=== PATIENT | male | born 1970 | race Caucasian/White ===

== ENCOUNTER 2016-11-16 13:07 | Inpatient (IN) | payer OTHER ==
[2016-11-16] MEDS ORDERED: RX INFO: IV CONTRAST WAS GIVEN 1 EACH MISC MISCELLANE PRN (13:31)
[2016-11-16] MEDS ORDERED: SODIUM CHLORIDE 0.9% 1,000 ML IV STA (13:31)
[2016-11-16] MEDS ORDERED: HYDROmorphone 1 MG/ML 1 ML SYRINGE IVP STA (13:31)
--- NOTE | 2016-11-16 13:50 | ED ---
Skin/Abscess/FB HPI - General Source: patient, RN notes reviewed Mode of arrival: ambulatory Limitations: no limitations <Allison Amaral - Last Filed: 11/16/16 15:34> <Smith Belcher - Last Filed: 11/16/16 15:45> - General Chief complaint: Skin/Abscess/Foreign Body Stated complaint: Painful Cyst Time Seen by Provider: 11/16/16 13:22 - History of Present Illness Initial comments: 46-year-old male presents to the emergency Department chief complaint of pain to the patient's rear end. Patient states for the last month he's had annoying pain to the left rear but now he is noticing increased pain for last 2 days. Patient states it's to the left of his rectum. Patient denies any drainage from the area any fever or chills. Patient states it started had she cannot walk or stand on it. Patient states she's never had anything like this before. Patient states he was concerned due to his symptoms so he thought that he should be evaluated. Patient denies any recent fever, chills, shortness of breath, chest pain, back pain, abdominal pain, nausea vomiting, numbness or tingling, dysuria or hematuria, constipation or diarrhea, headaches or visual changes, or any other current symptoms. (Allison Amaral) - Related Data Home Medications Medication Instructions Recorded Confirmed Ergocalciferol [Vitamin D2 50,000 unit PO SUTH 07/23/14 11/16/16 (DRISDOL)] Lisinopril [Zestril] 10 mg PO DAILY 07/23/14 11/16/16 Insulin Aspart [NovoLOG Flexpen] See Protocol SQ AC-TID 11/16/16 11/16/16 Insulin Degludec [Tresiba 52 unit SQ HS 11/16/16 11/16/16 Flextouch U-200] Allergies Allergy/AdvReac Type Severity Reaction Status Date / Time No Known Allergies Allergy Verified 11/16/16 13:38 Review of Systems ROS Other: All systems not noted in ROS Statement are negative. <Allison Amaral - Last Filed: 11/16/16 15:34> ROS Other: All systems not noted in ROS Statement are negative. <Smith Belcher - Last Filed: 11/16/16 15:45> ROS Statement: Those systems with pertinent positive or pertinent negative responses have been documented in the HPI. Past Medical History Past Medical History: Diabetes Mellitus, Renal Disease Additional Past Medical History / Comment(s): 07/23/14 Pt presented to [facility] ER with c/o dizziness which waxes and wanes over the past month. Dizziness is worse when standing up and with activity. It gets better when lying down. Pt states he recently started on neurontin for diabetic neuropathy and flomax for urinary retention. He saw a urologist and had a lane placed last week. He had the lane for a total of 10 days then it was removed. Other HX: IDDM, renal insufficency diabetic neuropathy, diabetic ketoacidosis, hypercalcemia History of Any Multi-Drug Resistant Organisms: None Reported Past Surgical History: No Surgical Hx Reported Additional Past Surgical History / Comment(s): renal stent 06/30 Past Anesthesia/Blood Transfusion Reactions: No Reported Reaction Past Psychological History: No Psychological Hx Reported Smoking Status: Current every day smoker Past Alcohol Use History: None Reported Past Drug Use History: None Reported - Past Family History Mother Family Medical History: Diabetes Mellitus Father Family Medical History: No Reported History <Allison Amaral - Last Filed: 11/16/16 15:34> General Exam Limitations: no limitations <Allison Amaral - Last Filed: 11/16/16 15:34> <Smith Belcher - Last Filed: 11/16/16 15:45> - General Exam Comments Initial Comments: General: The patient is awake and alert, in no distress, and does not appear acutely ill. Eye: Pupils are equal, round and reactive to light, extra-ocular movements are intact; there is normal conjunctiva bilaterally. No signs of icterus. Ears, nose, mouth and throat: There are moist mucous membranes. Neck: The neck is supple, there is no tenderness. Cardiovascular: There is a regular rate and rhythm. No murmur, rub or gallop is appreciated. Respiratory: Lungs are clear to auscultation, respirations are non-labored, breath sounds are equal. No wheezes, stridor, rales, or rhonchi. Gastrointestinal: Soft, non-distended, non-tender abdomen without masses or organomegaly noted. There is no rebound or guarding present. No CVA tenderness. Bowel sounds are unremarkable. Rectal: Patient appears to have an abscess at the 5 o'clock position. There does not appear to be any drainage. Back: There is no tenderness to palpation in the midline. There is no obvious deformity. No rashes noted. Musculoskeletal: Normal ROM, no tenderness, There is no pedal edema. There is no calf tenderness or swelling. Sensation intact. Pulses equal bilaterally 2+. Neurological: CN II-XII intact, There are no obvious motor or sensory deficits. Coordination appears grossly intact. Speech is normal. Skin: Skin is warm and dry and no rashes or lesions are noted. Psychiatric: Cooperative, appropriate mood & affect, normal judgment. (Allison Amaral) Course <Allison Amaral - Last Filed: 11/16/16 15:34> <Smith Belcher - Last Filed: 11/16/16 15:45> Vital Signs 11/16/16 11/16/16 11/16/16 13:12 14:37 15:06 Temperature 98.3 F 99.6 F Pulse Rate 118 H 99 99 Respiratory 18 15 18 Rate Blood Pressure 116/76 159/73 146/76 O2 Sat by Pulse 98 95 96 Oximetry - Reevaluation(s) Reevaluation #1: 11/16/16 15:03 This time patient does meet sepsis criteria. (Allison Amaral) Reevaluation #2: 11/16/16 15:45 I did personally do a [id number] evaluation the patient and did discuss the findings with him and his family members. I also discussed the case with Dr. Glass. Patient will be admitted nothing by mouth after midnight for likely incision and drainage in the a.m. Patient will be started on antibiotics. Patient does demonstrate a tender fluctuant area at about 5 o'clock position. She has had a sore 3.5 x 2 cm area. (Smith Belcher) Medical Decision Making - Lab Data Result diagrams: 11/16/16 14:10 11/16/16 14:10 - Radiology Data Radiology results: report reviewed, image reviewed <Allison Amaral - Last Filed: 11/16/16 15:34> - Lab Data Result diagrams: 11/16/16 14:10 11/16/16 14:10 <Smith Belcher - Last Filed: 11/16/16 15:45> - Medical Decision Making 46-year-old male presents emergency Department chief complaint of what appears to be a perianal abscess. This tenderness does not appear to be of fistula or drainage. At this time we will admit the patient IV antibiotics were started. We will call Dr. Pavon: See how she progresses. Patient is negative plan all questions have been answered. (Allison Amaral) - Lab Data Lab Results 11/16/16 11/16/16 11/16/16 Range/Units 14:10 14:10 14:10 WBC 15.6 H (3.8-10.6) k/uL RBC 5.24 (4.30-5.90) m/uL Hgb 15.5 (13.0-17.5) gm/dL Hct 41.6 (39.0-53.0) % MCV 79.4 L (80.0-100.0) fL MCH 29.6 (25.0-35.0) pg MCHC 37.2 H (31.0-37.0) g/dL RDW 12.7 (11.5-15.5) % Plt Count 251 (150-450) k/uL Neutrophils % 82 % Lymphocytes % 8 % Monocytes % 7 % Eosinophils % 2 % Basophils % 1 % Neutrophils # 12.7 H (1.3-7.7) k/uL Lymphocytes # 1.2 (1.0-4.8) k/uL Monocytes # 1.1 H (0-1.0) k/uL Eosinophils # 0.3 (0-0.7) k/uL Basophils # 0.1 (0-0.2) k/uL PT (9.0-12.0) sec INR (<1.1) APTT (22.0-30.0) sec Sodium 136 L (137-145) mmol/L Potassium 4.3 (3.5-5.1) mmol/L Chloride 102 (98-107) mmol/L Carbon Dioxide 26 (22-30) mmol/L Anion Gap 8 mmol/L BUN 19 (9-20) mg/dL Creatinine 1.05 (0.66-1.25) mg/dL Est GFR (MDRD) Af Amer >60 (>60 ml/min/1.73 sqM) Est GFR (MDRD) Non-Af >60 (>60 ml/min/1.73 sqM) Glucose 171 H (74-99) mg/dL Plasma Lactic Acid Jcarlos 1.0 (0.7-2.0) mmol/L Calcium 10.3 H (8.4-10.2) mg/dL Total Bilirubin 0.9 (0.2-1.3) mg/dL AST 11 L (17-59) U/L ALT 19 L (21-72) U/L Alkaline Phosphatase 136 H (38-126) U/L Total Protein 6.2 L (6.3-8.2) g/dL Albumin 3.3 L (3.5-5.0) g/dL 11/16/16 Range/Units 14:10 WBC (3.8-10.6) k/uL RBC (4.30-5.90) m/uL Hgb (13.0-17.5) gm/dL Hct (39.0-53.0) % MCV (80.0-100.0) fL MCH (25.0-35.0) pg MCHC (31.0-37.0) g/dL RDW (11.5-15.5) % Plt Count (150-450) k/uL Neutrophils % % Lymphocytes % % Monocytes % % Eosinophils % % Basophils % % Neutrophils # (1.3-7.7) k/uL Lymphocytes # (1.0-4.8) k/uL Monocytes # (0-1.0) k/uL Eosinophils # (0-0.7) k/uL Basophils # (0-0.2) k/uL PT 9.8 (9.0-12.0) sec INR 1.0 (<1.1) APTT 22.4 (22.0-30.0) sec Sodium (137-145) mmol/L Potassium (3.5-5.1) mmol/L Chloride (98-107) mmol/L Carbon Dioxide (22-30) mmol/L Anion Gap mmol/L BUN (9-20) mg/dL Creatinine (0.66-1.25) mg/dL Est GFR (MDRD) Af Amer (>60 ml/min/1.73 sqM) Est GFR (MDRD) Non-Af (>60 ml/min/1.73 sqM) Glucose (74-99) mg/dL Plasma Lactic Acid Jcarlos (0.7-2.0) mmol/L Calcium (8.4-10.2) mg/dL Total Bilirubin (0.2-1.3) mg/dL AST (17-59) U/L ALT (21-72) U/L Alkaline Phosphatase (38-126) U/L Total Protein (6.3-8.2) g/dL Albumin (3.5-5.0) g/dL Disposition Time of Disposition: 15:40 Decision Date: 11/16/16 Decision Time: 15:40 <Allison Amaral - Last Filed: 11/16/16 15:34> <Smith Belcher - Last Filed: 11/16/16 15:45> Clinical Impression: Perianal abscess, Diabetes mellitus, Hydronephrosis Disposition: ADMITTED IP TO THIS [facility] Condition: Stable Referrals: Cristi Mary MD [Primary Care Provider] - 1-2 days
[2016-11-16 14:24] LABS: Basophils # (A) 0.1 k/uL (0-0.2); Basophils % (A) 1 %; CH 29.4; CHCM 37.1; Eosinophils # (A) 0.3 k/uL (0-0.7); Eosinophils % (A) 2 %; HCT 41.6 % (39.0-53.0); HDW 2.73; HGB 15.5 gm/dL (13.0-17.5); Luc # (Auto) 0.23; Luc % (Auto) 2; Lymphocytes # (A) 1.2 k/uL (1.0-4.8); Lymphocytes % (A) 8 %; MCH 29.6 pg (25.0-35.0); MCHC 37.2 g/dL (31.0-37.0); MCV 79.4 fL (80.0-100.0); Mean Platelet Volume 7.1; Monocytes # (A) 1.1 k/uL (0-1.0); Monocytes % (A) 7 %; Neutrophils # (A) 12.7 k/uL (1.3-7.7); Neutrophils % (A) 82 %; RBC 5.24 m/uL (4.30-5.90); RDW 12.7 % (11.5-15.5); WBC 15.6 k/uL (3.8-10.6); WBC (Perox) 14.47
[2016-11-16 14:33] LABS: ALT 19 U/L (21-72); AST 11 U/L (17-59); Alkaline Phosphatase 136 U/L (38-126); Anion Gap 8 mmol/L; Blood Urea Nitrogen 19 mg/dL (9-20); Calcium 10.3 mg/dL (8.4-10.2); Carbon Dioxide 26 mmol/L (22-30); Chloride 102 mmol/L (98-107); Glucose 171 mg/dL (74-99); Non-African American GFR(MDRD) >60 (>60 ml/min/1.73 sqM); Potassium 4.3 mmol/L (3.5-5.1); Sodium 136 mmol/L (137-145); Total Bilirubin 0.9 mg/dL (0.2-1.3); Total Protein 6.2 g/dL (6.3-8.2)
[2016-11-16 14:36] LABS: Partial Thromboplastin Time 22.4 sec (22.0-30.0); Prothrombin Time 9.8 sec (9.0-12.0)
[2016-11-16] MEDS ORDERED: LEVOFLOXACIN 750MG-D5W PMX 750 MG in DEXTROSE/WATER 1 150ML.BAG IVPB STA (14:42)
--- NOTE | 2016-11-16 15:21 | CT ---
EXAMINATION TYPE: CT abdomen pelvis w con DATE OF EXAM: 11/16/2016 COMPARISON: NONE HISTORY: rectal abscess with pain CT DLP: 1454.8 mGycm Automated exposure control for dose reduction was used. TECHNIQUE: Helical acquisition of images was performed from the lung bases through the pelvis. CONTRAST: Performed without Oral Contrast and with IV Contrast, patient injected with 100 mL of Omnipaque 300. FINDINGS: Lung bases are clear. There is no pleural effusion. There is no pericardial effusion. Liver spleen pancreas gallbladder appear normal. Bile ducts are not dilated. Kidneys have normal size . There is bilateral ureteral dilation and worse on the left side. There is no renal cortical atrophy . There is no evidence of a ureteral calculus. Bladder distends smoothly. I see no intestinal wall th ickening. There are no dilated loops. I see no bony destructive process. There is a complex fluid collection in the subcutaneous tissues adjacent to the anus on the left side consistent with perianal abscess. There are a few air bubbles. This measures 3.5 x 2 cm. There is no sign of pneumoperitoneum. There is no sign of ascites. There is no retroperitoneal adenopathy. Appen nell is not seen. There is no sign of appendicitis. There is a dilated urinary bladder that measures 20 x 11 cm suggestive of chronic bladder outlet obst ruction. IMPRESSION: THERE IS BILATERAL HYDRONEPHROSIS AND HYDROURETER THAT IS WORSE ON THE LEFT SIDE. THERE IS NO RENAL A TROPHY. THIS COULD RELATE TO REFLUX DISEASE. THERE IS A COMPLEX PERIANAL FLUID COLLECTION ON THE LEFT SIDE CONSISTENT WITH PERIANAL ABSCESS. Dilated urinary bladder.
[2016-11-16] MEDS ORDERED: NALOXONE 0.4 MG/ML 1 ML VIAL IV PRN (15:43)
[2016-11-16] MEDS ORDERED: KETOROLAC 30 MG/ML 1 ML VIAL IVP PRN (15:43)
[2016-11-16] MEDS ORDERED: ACETAMINOPHEN TAB 325 MG TAB PO PRN (15:43)
[2016-11-16] MEDS ORDERED: ONDANSETRON 4 MG/2 ML VIAL IVP PRN (15:43)
[2016-11-16] MEDS ORDERED: IBUPROFEN 400 MG TAB PO PRN (15:43)
[2016-11-16] MEDS ORDERED: metroNIDAZOLE-NS PMX 500 MG in SALINE 1 100ML.BAG IVPB STA (15:48)
[2016-11-16 16:25] LABS: Glucose,Whole Blood 162 mg/dL (75-99)
[2016-11-16 16:49] VITALS: BMI 31.0
[2016-11-16 17:09] LABS: Glucose,Whole Blood 170 mg/dL (75-99)
[2016-11-16] MEDS: SODIUM CHLORIDE 0.9% 1,000 ML IV SCH (17:31)
[2016-11-16] MEDS: INSULIN LISPRO (humaLOG) 300 UNIT/3 ML VIAL SQ SCH ×2 (17:32→20:16)
[2016-11-16] MEDS: HYDROmorphone 1 MG/ML 1 ML SYRINGE IV PRN ×2 (18:27→22:00)
[2016-11-16 20:16] LABS: Glucose,Whole Blood 282 mg/dL (75-99)
--- NOTE | 2016-11-16 20:34 | P.GSHP ---
History of Present Illness H&P Date: 11/16/16 Chief Complaint: pain and swelling began having discomfort a month ago. Would occasionally drain. 2-3 day history of increased swelling and pain. No history or perirectal abscess, constipation, diarrhea, abdominal pain, rectal bleeding. No family history of IBD or Gi malignancy - Review of Systems All systems: negative (personal history of MRSA skin abscesses) Past Medical History Past Medical History: Diabetes Mellitus, Renal Disease Additional Past Medical History / Comment(s): 07/23/[address] [facility] ER with c/o dizziness which waxes and wanes over the past month. Dizziness is worse when standing up and with activity. It gets better when lying down. Pt states he recently started on neurontin for diabetic neuropathy and flomax for urinary retention. He saw a urologist and had a lane placed last week. He had the lane for a total of 10 days then it was removed. Other HX: IDDM, renal insufficency diabetic neuropathy, diabetic ketoacidosis, hypercalcemia History of Any Multi-Drug Resistant Organisms: None Reported Past Surgical History: No Surgical Hx Reported Additional Past Surgical History / Comment(s): renal stent 06/30 Past Anesthesia/Blood Transfusion Reactions: No Reported Reaction Past Psychological History: No Psychological Hx Reported Additional Psychological History / Comment(s): Pt lives alone in his home. He is normally independent. 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 Smoking Status: Current every day smoker Past Alcohol Use History: None Reported Past Drug Use History: None Reported - Past Family History Mother Family Medical History: Diabetes Mellitus Additional Family Medical History / Comment(s): mother is Father Family Medical History: No Reported History Medications and Allergies Home Medications Medication Instructions Recorded Confirmed Type Ergocalciferol [Vitamin D2 50,000 unit PO SUTH 07/23/14 11/16/16 History (DRISDOL)] Lisinopril [Zestril] 10 mg PO DAILY 07/23/14 11/16/16 History Insulin Aspart [NovoLOG Flexpen] See Protocol SQ AC-TID 11/16/16 11/16/16 History Insulin Degludec [Tresiba 52 unit SQ HS 11/16/16 11/16/16 History Flextouch U-200] Allergies Allergy/AdvReac Type Severity Reaction Status Date / Time No Known Allergies Allergy Verified 11/16/16 13:38 Surgical - Exam Osteopathic Statement: *. No significant issues noted on an osteopathic structural exam other than those noted in the History and Physical/Consult. Vital Signs Temp Pulse Resp BP Pulse Ox 98.3 F 118 H 18 116/76 98 11/16/16 13:12 11/16/16 13:12 11/16/16 13:12 11/16/16 13:12 11/16/16 13:12 - General well developed, well nourished, no distress - Eyes normal ocular movement - ENT no hearing loss - Neck trachea midline - Respiratory normal respiratory effort - Rectum Rectum: other (perianal swelling and erythema, primarily on the left of anus. Some skin changes concerning for a fistula with scarring) Results - Labs 11/16/16 14:10 11/16/16 14:10 Abnormal Lab Results - Last 24 Hours (Table) 11/16/16 11/16/16 11/16/16 Range/Units 14:10 14:10 16:23 WBC 15.6 H (3.8-10.6) k/uL MCV 79.4 L (80.0-100.0) fL MCHC 37.2 H (31.0-37.0) g/dL Neutrophils # 12.7 H (1.3-7.7) k/uL Monocytes # 1.1 H (0-1.0) k/uL Sodium 136 L (137-145) mmol/L Glucose 171 H (74-99) mg/dL POC Glucose (mg/dL) 162 H (75-99) mg/dL Calcium 10.3 H (8.4-10.2) mg/dL AST 11 L (17-59) U/L ALT 19 L (21-72) U/L Alkaline Phosphatase 136 H (38-126) U/L Total Protein 6.2 L (6.3-8.2) g/dL Albumin 3.3 L (3.5-5.0) g/dL 11/16/16 11/16/16 Range/Units 17:08 20:07 WBC (3.8-10.6) k/uL MCV (80.0-100.0) fL MCHC (31.0-37.0) g/dL Neutrophils # (1.3-7.7) k/uL Monocytes # (0-1.0) k/uL Sodium (137-145) mmol/L Glucose (74-99) mg/dL POC Glucose (mg/dL) 170 H 282 H (75-99) mg/dL Calcium (8.4-10.2) mg/dL AST (17-59) U/L ALT (21-72) U/L Alkaline Phosphatase (38-126) U/L Total Protein (6.3-8.2) g/dL Albumin (3.5-5.0) g/dL Diabetes panel 11/16/16 Range/Units 14:10 Sodium 136 L (137-145) mmol/L Potassium 4.3 (3.5-5.1) mmol/L Chloride 102 (98-107) mmol/L Carbon Dioxide 26 (22-30) mmol/L BUN 19 (9-20) mg/dL Creatinine 1.05 (0.66-1.25) mg/dL Glucose 171 H (74-99) mg/dL Calcium 10.3 H (8.4-10.2) mg/dL AST 11 L (17-59) U/L ALT 19 L (21-72) U/L Alkaline Phosphatase 136 H (38-126) U/L Total Protein 6.2 L (6.3-8.2) g/dL Albumin 3.3 L (3.5-5.0) g/dL Calcium panel 11/16/16 Range/Units 14:10 Calcium 10.3 H (8.4-10.2) mg/dL Albumin 3.3 L (3.5-5.0) g/dL Pituitary panel 11/16/16 Range/Units 14:10 Sodium 136 L (137-145) mmol/L Potassium 4.3 (3.5-5.1) mmol/L Chloride 102 (98-107) mmol/L Carbon Dioxide 26 (22-30) mmol/L BUN 19 (9-20) mg/dL Creatinine 1.05 (0.66-1.25) mg/dL Glucose 171 H (74-99) mg/dL Calcium 10.3 H (8.4-10.2) mg/dL Adrenal panel 11/16/16 Range/Units 14:10 Sodium 136 L (137-145) mmol/L Potassium 4.3 (3.5-5.1) mmol/L Chloride 102 (98-107) mmol/L Carbon Dioxide 26 (22-30) mmol/L BUN 19 (9-20) mg/dL Creatinine 1.05 (0.66-1.25) mg/dL Glucose 171 H (74-99) mg/dL Calcium 10.3 H (8.4-10.2) mg/dL Total Bilirubin 0.9 (0.2-1.3) mg/dL AST 11 L (17-59) U/L ALT 19 L (21-72) U/L Alkaline Phosphatase 136 H (38-126) U/L Total Protein 6.2 L (6.3-8.2) g/dL Albumin 3.3 L (3.5-5.0) g/dL - Imaging CT scan - abdomen: report reviewed Assessment and Plan (1) Perianal abscess Status: Acute Plan: Admit, IV antibiotics, pain control. Exam under anesthesia to determine if this is a simple abscess or whether there is a fistula. Procedure, risks and complications discussed. Questions encouraged and answered.
[2016-11-16] MEDS: metroNIDAZOLE-NS PMX 500 MG in SALINE 1 100ML.BAG IVPB SCH (23:22)
[2016-11-17] MEDS: HYDROmorphone 1 MG/ML 1 ML SYRINGE IV PRN ×4 (01:31→10:22)
[2016-11-17] MEDS: SODIUM CHLORIDE 0.9% 1,000 ML IV SCH ×3 (03:38→20:15)
[2016-11-17 06:39] LABS: Basophils # (A) 0.1 k/uL (0-0.2); Basophils % (A) 1 %; CH 28.7; CHCM 34.4; Eosinophils # (A) 0.4 k/uL (0-0.7); Eosinophils % (A) 2 %; HCT 40.7 % (39.0-53.0); HDW 2.75; HGB 14.1 gm/dL (13.0-17.5); Luc # (Auto) 0.26; Luc % (Auto) 2; Lymphocytes # (A) 1.1 k/uL (1.0-4.8); Lymphocytes % (A) 8 %; MCHC 34.6 g/dL (31.0-37.0); MCV 83.8 fL (80.0-100.0); Mean Platelet Volume 7.4; Monocytes % (A) 7 %; Neutrophils # (A) 11.5 k/uL (1.3-7.7); Neutrophils % (A) 81 %; RBC 4.85 m/uL (4.30-5.90); RDW 12.4 % (11.5-15.5); WBC 14.2 k/uL (3.8-10.6); WBC (Perox) 14.65
[2016-11-17 07:11] LABS: Glucose,Whole Blood 231 mg/dL (75-99)
[2016-11-17 07:12] LABS: ALT 17 U/L (21-72); AST 9 U/L (17-59); Alkaline Phosphatase 122 U/L (38-126); Anion Gap 10 mmol/L; Blood Urea Nitrogen 22 mg/dL (9-20); Calcium 9.1 mg/dL (8.4-10.2); Carbon Dioxide 24 mmol/L (22-30); Chloride 103 mmol/L (98-107); Glucose 194 mg/dL (74-99); Non-African American GFR(MDRD) >60 (>60 ml/min/1.73 sqM); Potassium 4.4 mmol/L (3.5-5.1); Sodium 137 mmol/L (137-145); Total Bilirubin 0.6 mg/dL (0.2-1.3); Total Protein 5.7 g/dL (6.3-8.2)
[2016-11-17] MEDS: LISINOPRIL 10 MG TAB PO SCH (07:34)
[2016-11-17] MEDS: metroNIDAZOLE-NS PMX 500 MG in SALINE 1 100ML.BAG IVPB SCH ×3 (07:34→23:42)
[2016-11-17] MEDS: INSULIN LISPRO (humaLOG) 300 UNIT/3 ML VIAL SQ SCH ×4 (07:36→20:15)
[2016-11-17 09:04] LABS: Hemoglobin A1C 9.9 % (4.2-6.1)
[2016-11-17 11:25] LABS: Glucose,Whole Blood 141 mg/dL (75-99)
[2016-11-17] MEDS ORDERED: IV FLUID CONTINUATION 1,000 ML IV ONE (12:17)
[2016-11-17] MEDS ORDERED: ONDANSETRON 4 MG/2 ML VIAL IVP ONE (12:35)
[2016-11-17] MEDS ORDERED: LIDOCAINE 1%-EPI 1:100,000 20 ML VIAL SQ ONE ×2 (13:08)
[2016-11-17] MEDS ORDERED: LACTATED RINGERS 1,000 ML IV ONE (13:21)
--- NOTE | 2016-11-17 13:54 | P.OP ---
Date of Procedure: 11/17/16 Preoperative Diagnosis: Perirectal abscess, possible perianal fistula Postoperative Diagnosis: Perirectal abscess, perianal fistula Procedure(s) Performed: Exam under anesthesia, incision and drainage of abscess, fistulotomy Implants: Anesthesia: ANNAA Surgeon: Aparna Glass Estimated Blood Loss (ml): 10 Pathology: none sent Condition: stable Disposition: PACU Indications for Procedure: Patient presented with pain and swelling which had been severe for several days prior to admission through ER. He had pain in the area for a couple of months Operative Findings: Description of Procedure: The patient's taken the operative suite where he is prepped and draped in the usual sterile manner under general endotracheal anesthetic. Digital rectal exam is carried out. He has swelling and induration posteriorly. An anoscope was inserted and there was noted to be an ulceration in the posterior portion of the anus. The perianal area was explored using crypt hooks. A small fistula opening was noted in the left posterior portion the anus. An incision and drainage was carried out through that opening and extending posteriorly. Loculations were bluntly broken down. The wound was irrigated. No other fistula openings were seen. The wound was packed. The abscess tracked posteriorly to the anus on the right about 4 1/2 cm. To the left of the anus about 4 cm. The depth of the wound is about 3 cm. He tolerated the procedure without difficulty and is taken recovery room in satisfactory condition. According to or personnel, all counts are correct
[2016-11-17] MEDS ORDERED: HYDROcodone/APAP 7.5-325MG 1 EACH TAB PO PRN (13:58)
[2016-11-17 14:13] LABS: Glucose,Whole Blood 194 mg/dL (75-99)
[2016-11-17] MEDS ORDERED: LEVOFLOXACIN 750MG-D5W PMX 750 MG in DEXTROSE/WATER 1 150ML.BAG IVPB SCH (15:00)
[2016-11-17 17:08] LABS: Glucose,Whole Blood 215 mg/dL (75-99)
[2016-11-17 19:51] LABS: Glucose,Whole Blood 243 mg/dL (75-99)
[2016-11-18 06:53] LABS: Glucose,Whole Blood 291 mg/dL (75-99)
[2016-11-18 07:04] LABS: CH 28.9; CHCM 34.9; HCT 35.1 % (39.0-53.0); HDW 2.68; HGB 12.2 gm/dL (13.0-17.5); MCH 28.9 pg (25.0-35.0); MCHC 34.8 g/dL (31.0-37.0); MCV 83.2 fL (80.0-100.0); Mean Platelet Volume 7.2; RBC 4.22 m/uL (4.30-5.90); RDW 12.6 % (11.5-15.5); WBC 12.8 k/uL (3.8-10.6)
[2016-11-18] MEDS: INSULIN LISPRO (humaLOG) 300 UNIT/3 ML VIAL SQ SCH ×4 (07:21→21:25)
[2016-11-18] MEDS: metroNIDAZOLE-NS PMX 500 MG in SALINE 1 100ML.BAG IVPB SCH (07:22)
[2016-11-18] MEDS: SODIUM CHLORIDE 0.9% 1,000 ML IV SCH ×2 (07:22→17:53)
[2016-11-18] MEDS: LISINOPRIL 10 MG TAB PO SCH (07:22)
[2016-11-18 07:24] LABS: Anion Gap 6 mmol/L; Blood Urea Nitrogen 24 mg/dL (9-20); Calcium 8.2 mg/dL (8.4-10.2); Carbon Dioxide 23 mmol/L (22-30); Chloride 107 mmol/L (98-107); Glucose 259 mg/dL (74-99); Non-African American GFR(MDRD) 53 (>60 ml/min/1.73 sqM); Potassium 4.4 mmol/L (3.5-5.1); Sodium 136 mmol/L (137-145)
[2016-11-18 11:33] LABS: Glucose,Whole Blood 388 mg/dL (75-99)
[2016-11-18] MEDS ORDERED: ERGOCALCIFEROL 50,000 UNIT CAP PO SCH (12:00)
--- NOTE | 2016-11-18 12:51 | P.CONS ---
History of Present Illness - Reason for Consult Consult date: 11/18/16 - Chief Complaint Medical management - History of Present Illness This is a 46-year-old white male with known history type 1 diabetes who is admitted secondary to perianal abscess. He is postop day #14 incision and drainage. He states his pain is much better controlled. However, he has underlying history of poorly controlled blood sugar and element of noncompliance with treatment as far as keeping his appointments in my office. However, he usually does see me once a year. No voiding difficulties other than the rectal pain, which is now resolving. No dysuria stated. Review of Systems Constitutional: Denies chills, Denies fever Eyes: denies blurred vision, denies pain Ears, nose, mouth and throat: Denies headache, Denies sore throat Cardiovascular: Denies chest pain, Denies shortness of breath Respiratory: Denies cough Gastrointestinal: Denies abdominal pain, Denies diarrhea, Denies nausea, Denies vomiting Musculoskeletal: Denies myalgias Integumentary: Denies pruritus, Denies rash Neurological: Denies numbness, Denies weakness Endocrine: Denies fatigue, Denies weight change Past Medical History Past Medical History: Diabetes Mellitus, Renal Disease Additional Past Medical History / Comment(s): 07/23/14 Pt presented to [facility] ER with c/o dizziness which waxes and wanes over the past month. Dizziness is worse when standing up and with activity. It gets better when lying down. Pt states he recently started on neurontin for diabetic neuropathy and flomax for urinary retention. He saw a urologist and had a lane placed last week. He had the lane for a total of 10 days then it was removed. Other HX: IDDM, renal insufficency diabetic neuropathy, diabetic ketoacidosis, hypercalcemia History of Any Multi-Drug Resistant Organisms: None Reported Past Surgical History: No Surgical Hx Reported Additional Past Surgical History / Comment(s): renal stent 06/30 Past Anesthesia/Blood Transfusion Reactions: No Reported Reaction Past Psychological History: No Psychological Hx Reported Additional Psychological History / Comment(s): Pt lives alone in his home. He is normally independent. 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 Smoking Status: Current every day smoker Past Alcohol Use History: None Reported Past Drug Use History: None Reported - Past Family History Mother Family Medical History: Diabetes Mellitus Additional Family Medical History / Comment(s): mother is Father Family Medical History: No Reported History Medications and Allergies Home Medications Medication Instructions Recorded Confirmed Type Ergocalciferol [Vitamin D2 50,000 unit PO SUTH 07/23/14 11/16/16 History (DRISDOL)] Lisinopril [Zestril] 10 mg PO DAILY 07/23/14 11/16/16 History Insulin Aspart [NovoLOG Flexpen] See Protocol SQ AC-TID 11/16/16 11/16/16 History Insulin Degludec [Tresiba 52 unit SQ HS 11/16/16 11/16/16 History Flextouch U-200] Allergies Allergy/AdvReac Type Severity Reaction Status Date / Time No Known Allergies Allergy Verified 11/16/16 13:38 Physical Exam Vitals: Vital Signs Temp Pulse Pulse Resp BP Pulse Ox 11/18/16 08:26 98.8 F 65 18 145/85 95 11/18/16 08:00 65 18 11/18/16 07:00 98.3 F 88 16 140/79 95 11/18/16 00:00 93 16 11/17/16 20:29 99.5 F 93 16 142/80 95 11/17/16 17:46 105 H 16 148/74 95 11/17/16 17:05 98.2 F 16 145/80 96 11/17/16 16:05 107 H 15 134/73 97 11/17/16 15:54 99 15 132/68 99 11/17/16 15:05 99 15 123/64 99 11/17/16 14:35 98.4 F 101 H 15 124/68 92 L 11/17/16 14:17 99 16 120/70 96 11/17/16 14:01 96 18 109/60 94 L 11/17/16 13:48 98.1 F 101 H 16 108/76 100 Intake and Output 11/17/16 11/18/16 11/18/16 22:59 06:59 14:59 Intake Total 170 860 Balance 170 860 Intake: Intake, IV Titration 860 Amount Lactated Ringers 1,000 ml 860 As IV .[facility] Rx#: [id number] Oral 170 Other: Voiding Method Toilet Toilet # Voids 1 2 # Bowel Movements 1 Weight 95.254 kg 95.254 kg Patient Weight 07/07/17 06:59 Weight 95.254 kg - Constitutional General appearance: no acute distress - EENT Eyes: EOMI - Neck Neck: no lymphadenopathy - Respiratory Respiratory: bilateral: CTA - Cardiovascular Rhythm: regular Heart sounds: normal: S1, S2 - Gastrointestinal General gastrointestinal: no organomegaly, soft, no tenderness - Neurologic Neurologic: CNII-XII intact - Musculoskeletal Musculoskeletal: strength equal bilaterally - Psychiatric Psychiatric: A&O x's 3, appropriate affect, intact judgment & insight Results CBC & Chem 7: 11/18/16 06:30 11/18/16 06:30 Labs: Abnormal Lab Results - Last 24 Hours (Table) 11/17/16 11/17/16 11/17/16 Range/Units 14:06 17:07 19:49 WBC (3.8-10.6) k/uL RBC (4.30-5.90) m/uL Hgb (13.0-17.5) gm/dL Hct (39.0-53.0) % Sodium (137-145) mmol/L BUN (9-20) mg/dL Creatinine (0.66-1.25) mg/dL Glucose (74-99) mg/dL POC Glucose (mg/dL) 194 H 215 H 243 H (75-99) mg/dL Calcium (8.4-10.2) mg/dL 11/18/16 11/18/16 11/18/16 Range/Units 06:30 06:30 06:50 WBC 12.8 H (3.8-10.6) k/uL RBC 4.22 L (4.30-5.90) m/uL Hgb 12.2 L (13.0-17.5) gm/dL Hct 35.1 L (39.0-53.0) % Sodium 136 L (137-145) mmol/L BUN 24 H (9-20) mg/dL Creatinine 1.44 H (0.66-1.25) mg/dL Glucose 259 H (74-99) mg/dL POC Glucose (mg/dL) 291 H (75-99) mg/dL Calcium 8.2 L (8.4-10.2) mg/dL 11/18/16 Range/Units 11:30 WBC (3.8-10.6) k/uL RBC (4.30-5.90) m/uL Hgb (13.0-17.5) gm/dL Hct (39.0-53.0) % Sodium (137-145) mmol/L BUN (9-20) mg/dL Creatinine (0.66-1.25) mg/dL Glucose (74-99) mg/dL POC Glucose (mg/dL) 388 H (75-99) mg/dL Calcium (8.4-10.2) mg/dL Microbiology - Last 24 Hours (Table) 11/16/16 14:10 Blood Culture - Preliminary Blood No Growth after 24 hours Assessment and Plan (1) Diabetes mellitus Status: Acute (2) Perianal abscess Status: Acute Plan: Continue postop treatment. Restart home insulin dosing with sliding scale. Otherwise, check CBC and CMP in a.m. See orders otherwise. Time with Patient: Greater than 30
[2016-11-18 14:15] VITALS: RESP 16
[2016-11-18] MEDS: LEVOFLOXACIN 750 MG TAB PO SCH (15:15)
[2016-11-18] MEDS: metroNIDAZOLE 500 MG TAB PO SCH ×2 (15:16→23:52)
--- NOTE | 2016-11-18 15:50 | P.PN ---
Subjective Principal diagnosis: Perirectal abscess due to fistula The patient's postoperative day one I and D of abscess with fistulotomy. The pain is much better. No fevers or chills. T-max 99.5. Objective - Vital Signs Vital signs: Vital Signs Temp 98.5 F 11/18/16 14:15 Pulse 87 11/18/16 14:15 Resp 16 11/18/16 14:15 BP 171/87 11/18/16 14:15 Pulse Ox 98 11/18/16 14:15 Intake & Output 11/17/16 11/18/16 11/18/16 18:59 06:59 18:59 Intake Total 1650 1030 Output Total 10 Balance 1640 1030 Weight 95.254 kg 95.254 kg 95.254 kg Intake: IV 850 Intake, IV Titration 800 860 Amount Lactated Ringers 1,000 ml 860 As IV .[facility] ONE Rx#: [id number] Sodium Chloride 0.9% 1, 700 000 ml @ 100 mls/hr IV . Q10H [facility] Rx#:[id number] metroNIDAZOLE-NS PMX 500 100 mg In Saline 1 100ml.bag @ 100 mls/hr IVPB Q8HR [facility] Rx#:[id number] Oral 170 Output: Estimated Blood Loss 10 Other: Voiding Method Toilet Toilet # Voids 1 2 2 # Bowel Movements 1 - Constitutional General appearance: Present: cooperative, no acute distress - Integumentary Integumentary Comment(s): Moderate mucopurulent drainage - Labs CBC & Chem 7: 11/18/16 06:30 11/18/16 06:30 Labs: Abnormal Lab Results - Last 24 Hours (Table) 11/17/16 11/17/16 11/18/16 Range/Units 17:07 19:49 06:30 WBC 12.8 H (3.8-10.6) k/uL RBC 4.22 L (4.30-5.90) m/uL Hgb 12.2 L (13.0-17.5) gm/dL Hct 35.1 L (39.0-53.0) % Sodium (137-145) mmol/L BUN (9-20) mg/dL Creatinine (0.66-1.25) mg/dL Glucose (74-99) mg/dL POC Glucose (mg/dL) 215 H 243 H (75-99) mg/dL Calcium (8.4-10.2) mg/dL 11/18/16 11/18/16 11/18/16 Range/Units 06:30 06:50 11:30 WBC (3.8-10.6) k/uL RBC (4.30-5.90) m/uL Hgb (13.0-17.5) gm/dL Hct (39.0-53.0) % Sodium 136 L (137-145) mmol/L BUN 24 H (9-20) mg/dL Creatinine 1.44 H (0.66-1.25) mg/dL Glucose 259 H (74-99) mg/dL POC Glucose (mg/dL) 291 H 388 H (75-99) mg/dL Calcium 8.2 L (8.4-10.2) mg/dL Microbiology - Last 24 Hours (Table) 11/16/16 14:10 Blood Culture - Preliminary Blood No Growth after 24 hours Assessment and Plan (1) Perianal abscess Status: Acute (2) Perianal fistula Status: Acute Plan: Continue antibiotics today. We'll start irrigating and repacking the wound daily starting tomorrow. Explained to the patient and and family he'll need home health care for irrigation and repacking of wound. Progressing well. We will start him on a NicoDerm patch due to smoking 2 packs plus cigarettes per day
[2016-11-18] MEDS: NICOTINE 21MG/24HR PATCH TRANSDERM SCH (16:24)
[2016-11-18 16:39] LABS: Glucose,Whole Blood 335 mg/dL (75-99)
[2016-11-18 20:10] LABS: Glucose,Whole Blood 361 mg/dL (75-99)
[2016-11-18] MEDS ORDERED: INSULIN DETEMIR 100 UNIT/ML 10 ML VIAL SQ SCH (21:00)
[2016-11-19] MEDS: SODIUM CHLORIDE 0.9% 1,000 ML IV SCH ×2 (04:54→16:08)
[2016-11-19 06:50] LABS: Glucose,Whole Blood 105 mg/dL (75-99)
[2016-11-19] MEDS: INSULIN LISPRO (humaLOG) 300 UNIT/3 ML VIAL SQ SCH ×3 (07:16→18:01)
[2016-11-19] MEDS: NICOTINE 21MG/24HR PATCH TRANSDERM SCH (09:12)
[2016-11-19] MEDS: LISINOPRIL 10 MG TAB PO SCH (09:12)
[2016-11-19] MEDS: metroNIDAZOLE 500 MG TAB PO SCH ×2 (09:12→16:07)
[2016-11-19 11:38] LABS: Glucose,Whole Blood 175 mg/dL (75-99)
[2016-11-19 14:40] VITALS: BP 157/97; PULSE 83; TEMP 98.2
[2016-11-19] MEDS: LEVOFLOXACIN 750 MG TAB PO SCH (16:06)
--- NOTE | 2016-11-19 16:23 | P.DS ---
Providers Date of admission: 11/18/16 08:39 Expected date of discharge: 11/19/16 Attending physician: Aparna Glass Consults: 11/17/16 13:56 Consult Physician Routine Consulting Provider: Cristi Mary Consult Reason/Comments: Medical management Do you want consulting provider notified?: Yes Primary care physician: Cristi Mary - Discharge Diagnosis(es) (1) Perianal abscess Current Visit: Yes Status: Acute (2) Perianal fistula Current Visit: Yes Status: Acute Hospital Course: The patient presented with pain and swelling. He was found to have a perianal abscess. He was taken the OR where the abscess was drained. He did have a associated fistula so a fistulotomy was carried out. He was continued on IV antibiotics. His pain and drainage quickly improved. His blood sugars were somewhat elevated so Dr. Mary adjusted his medications. By 11-19 he was felt to be stable for discharge Patient Condition at Discharge: Stable Plan - Discharge Summary New Discharge Prescriptions: New Amoxic-Pot Clav 875-125Mg [Augmentin 875-125] 1 tab PO Q12HR #20 tablet HYDROcodone/APAP 5-325MG [[place] 5-325] 1 - 2 tab PO Q4H PRN #30 tab PRN Reason: Pain No Action Lisinopril [Zestril] 10 mg PO DAILY Ergocalciferol [Vitamin D2 (DRISDOL)] 50,000 unit PO SUTH Insulin Degludec [Tresiba Flextouch U-200] 52 unit SQ HS Insulin Aspart [NovoLOG Flexpen] See Protocol SQ AC-TID Discharge Medication List Ergocalciferol [Vitamin D2 (DRISDOL)] 50,000 unit PO SUTH 07/23/14 [History] Lisinopril [Zestril] 10 mg PO DAILY 07/23/14 [History] Insulin Aspart [NovoLOG Flexpen] See Protocol SQ AC-TID 11/16/16 [History] Insulin Degludec [Tresiba Flextouch U-200] 52 unit SQ HS 11/16/16 [History] Amoxic-Pot Clav 875-125Mg [Augmentin 875-125] 1 tab PO Q12HR #20 tablet [Rx] HYDROcodone/APAP 5-325MG [[place] 5-325] 1 - 2 tab PO Q4H PRN #30 tab 11/19/16 [Rx ] Follow up Appointment(s)/Referral(s): Cristi Mary MD [Primary Care Provider] - 1-2 days [facility], [NON-STAFF] - As Needed Aparna Glass DO [Doctor of Osteopathic Medicine] - 2 Weeks Activity/Diet/Wound Care/Special Instructions: Irrigate and and repack the wound daily. Eat yogurt one to 2 times a day or take a probiotic daily. May shower. Stool softener or milk of magnesia as needed for constipation. Discharge Disposition: HOME WITH HOME HEALTH SERVICES
[2016-11-19 16:54] LABS: Glucose,Whole Blood 261 mg/dL (75-99)
== END 2016-11-19 18:42 | disposition home health service (06) | DRG 349 ==
LOC: EC 13:07 → 5MS5E 15:46 → OBSVTOIN 11-18 08:39
PROVIDERS: ADMIT Surgery; ATTEND Surgery
PROC: 0D9Q0ZZ Drainage of Anus, Open Approach (ICD-10-PCS; principal; 2016-11-17 08:00)
DX: K61.0 Anal abscess (principal); E10.40 Type 1 diabetes mellitus with diabetic neuropathy, unspecified; N18.9 Chronic kidney disease, unspecified; I12.9 Hypertensive chronic kidney disease with stage 1 through stage 4 chronic kidney disease, or unspecified chronic kidney disease; E78.5 Hyperlipidemia, unspecified; F17.210 Nicotine dependence, cigarettes, uncomplicated; Z91.19 Patient's noncompliance with other medical treatment and regimen; Z79.899 Other long term (current) drug therapy; Z79.4 Long term (current) use of insulin; Z83.3 Family history of diabetes mellitus; Z87.448 Personal history of other diseases of urinary system
CPT/HCPCS: 36415; 74177; 80048; 80053; 83036; 83605; 85025; 85027; 85610; 85730; 87040; 96361; 96365; 96375; 99284

== ENCOUNTER 2017-09-07 23:50 | Inpatient (IN) | payer OTHER ==
[2017-09-07] MEDS ORDERED: SODIUM CHLORIDE 0.9% 1,000 ML IV STA (23:59)
[2017-09-08 00:07] LABS: Glucose,Whole Blood 170 mg/dL (75-99)
--- NOTE | 2017-09-08 00:12 | ED ---
General Adult HPI - General Chief complaint: Dizziness Stated complaint: DIZZINESS Time Seen by Provider: 09/07/17 23:59 Source: patient, RN notes reviewed, old records reviewed Mode of arrival: ambulatory Limitations: no limitations - History of Present Illness Initial comments: 46-year-old male presents for evaluation of lightheadedness. Symptoms began 2 hours prior to presentation while patient was at work. [place] very lightheaded like is going pass out. States he felt like his head was heavy. Denies headache. Denies vision changes. He says he had some nausea with one episode of vomiting. He states he's had similar episodes of this in the past which will resolve with rest. Denies any chest pain. Denies dyspnea. Denies cough or fever. Denies abdominal pain. Patient has past medical history of diabetes and hypertension. He states he has been eating and drinking normally. - Related Data Home Medications Medication Instructions Recorded Confirmed Ergocalciferol [Vitamin D2 50,000 unit PO SUTH 07/23/14 11/16/16 (DRISDOL)] Lisinopril [Zestril] 10 mg PO DAILY 07/23/14 11/16/16 Insulin Aspart [NovoLOG Flexpen] See Protocol SQ AC-TID 11/16/16 11/16/16 Insulin Degludec [Tresiba 52 unit SQ HS 11/16/16 11/16/16 Flextouch U-200] Previous Rx's Medication Instructions Recorded Amoxic-Pot Clav 875-125Mg 1 tab PO Q12HR #20 tablet 11/19/16 [Augmentin 875-125] HYDROcodone/APAP 5-325MG [[place] 1 - 2 tab PO Q4H PRN #30 tab 11/19/16 5-325] Allergies Allergy/AdvReac Type Severity Reaction Status Date / Time No Known Allergies Allergy Verified 09/07/17 23:53 Review of Systems ROS Statement: Those systems with pertinent positive or pertinent negative responses have been documented in the HPI. ROS Other: All systems not noted in ROS Statement are negative. Past Medical History Past Medical History: Diabetes Mellitus, Renal Disease Additional Past Medical History / Comment(s): dizziness Other HX: IDDM, renal insufficency diabetic neuropathy, diabetic ketoacidosis, hypercalcemia History of Any Multi-Drug Resistant Organisms: None Reported Past Surgical History: No Surgical Hx Reported Additional Past Surgical History / Comment(s): renal stent 06/30 Past Anesthesia/Blood Transfusion Reactions: No Reported Reaction Past Psychological History: No Psychological Hx Reported Smoking Status: Current every day smoker Past Alcohol Use History: None Reported Past Drug Use History: None Reported - Past Family History Mother Family Medical History: Diabetes Mellitus Additional Family Medical History / Comment(s): mother is Father Family Medical History: No Reported History General Exam Limitations: no limitations General appearance: alert, in no apparent distress Head exam: Present: atraumatic, normocephalic Eye exam: Present: normal appearance, PERRL ENT exam: Present: mucous membranes dry Neck exam: Present: normal inspection. Absent: tenderness, meningismus Respiratory exam: Present: normal lung sounds bilaterally. Absent: respiratory distress, wheezes Cardiovascular Exam: Present: normal rhythm, tachycardia GI/Abdominal exam: Present: soft. Absent: distended, tenderness, guarding Extremities exam: Present: normal inspection, normal capillary refill. Absent: pedal edema Neurological exam: Present: alert, oriented X3. Absent: motor sensory deficit Skin exam: Present: warm, dry, intact. Absent: cyanosis, diaphoretic Course Vital Signs 09/07/17 09/08/17 09/08/17 23:51 00:13 01:01 Temperature 97.8 F 97.1 F L Pulse Rate 106 H 90 Pulse Rate [ 98 Right Sitting] Pulse Rate [ 118 H Right Standing] Pulse Rate [ 97 Right Supine] Respiratory 18 14 14 Rate Blood Pressure 107/67 130/63 Blood Pressure 131/60 [Right Arm Sitting] Blood Pressure 93/55 [Right Arm Standing] Blood Pressure 139/78 [Right Arm Supine] O2 Sat by Pulse 97 98 99 Oximetry 09/08/17 01:28 Temperature 97.4 F L Pulse Rate 97 Pulse Rate [ Right Sitting] Pulse Rate [ Right Standing] Pulse Rate [ Right Supine] Respiratory 14 Rate Blood Pressure 133/65 Blood Pressure [Right Arm Sitting] Blood Pressure [Right Arm Standing] Blood Pressure [Right Arm Supine] O2 Sat by Pulse 98 Oximetry - Reevaluation(s) Reevaluation #1: 09/08/17 01:21 Patient does feel somewhat improved with IV hydration. His orthostatic vitals are positive. Laboratory testing reveals significantly elevated calcium at 17.6. Patient does admit to taking 15-20 times daily for indigestion. EKG Findings - EKG Comments: EKG Findings:: EKG obtained at 2358, sinus tachycardia, rate of 101, ME interval 154, QRS duration 94, there is some ST segment changes in the precordial leads and nonspecific finding. EKG obtained at 0027, normal sinus rhythm, ventricular rate of 89, ME interval 128, QRS duration 92, QTC 401, there is unchanged ST segment changes. Medical Decision Making - Medical Decision Making 46-year-old male presenting with lightheadedness and near syncope. Patient is dehydrated on exam. Vital signs are stable. Laboratory studies obtained, patient has mild elevated white blood cell count 13.2, on certain significance at this time. Hemoglobin is stable. Electrolytes reveal normal sodium at 140, potassium normal 4.3, creatinine is elevated 2.5 as well as BUN at 35. Calcium is severely elevated at 17.6 and magnesium low 1.0. Patient does admit to taking a large quantity of Tums for indigestion. 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 CT obtained negative for intracranial pathology, chest x-ray negative for focal pneumonia or acute intrathoracic process. Given the acute renal failure and severely elevated calcium, case is discussed with Dr. Silverman from nephrology. He recommends continued IV hydration and calcitonin. Patient will be admitted for further evaluation and treatment. - Lab Data Result diagrams: 09/08/17 00:10 09/08/17 00:10 Lab Results 09/08/17 09/08/17 09/08/17 Range/Units 00:05 00:10 00:10 WBC 13.2 H (3.8-10.6) k/uL RBC 4.95 (4.30-5.90) m/uL Hgb 14.5 (13.0-17.5) gm/dL Hct 40.5 (39.0-53.0) % MCV 81.8 (80.0-100.0) fL MCH 29.4 (25.0-35.0) pg MCHC 35.9 (31.0-37.0) g/dL RDW 12.5 (11.5-15.5) % Plt Count 296 (150-450) k/uL Neutrophils % 78 % Lymphocytes % 12 % Monocytes % 6 % Eosinophils % 2 % Basophils % 1 % Neutrophils # 10.3 H (1.3-7.7) k/uL Lymphocytes # 1.6 (1.0-4.8) k/uL Monocytes # 0.8 (0-1.0) k/uL Eosinophils # 0.3 (0-0.7) k/uL Basophils # 0.1 (0-0.2) k/uL Hyperchromasia Slight PT (9.0-12.0) sec INR (<1.2) APTT (22.0-30.0) sec Sodium (137-145) mmol/L Potassium (3.5-5.1) mmol/L Chloride (98-107) mmol/L Carbon Dioxide (22-30) mmol/L Anion Gap mmol/L BUN (9-20) mg/dL Creatinine (0.66-1.25) mg/dL Est GFR (CKD-EPI)AfAm (>60 ml/min/1.73 sqM) Est GFR (CKD-EPI)NonAf (>60 ml/min/1.73 sqM) Glucose (74-99) mg/dL POC Glucose (mg/dL) 170 H (75-99) mg/dL POC Glu Frame Polisher ID Hussain Stoddard Calcium (8.4-10.2) mg/dL Ionized Calcium Russell (4.5-5.3) mg/dL Phosphorus (2.5-4.5) mg/dL Magnesium (1.6-2.3) mg/dL Total Bilirubin (0.2-1.3) mg/dL AST (17-59) U/L ALT (21-72) U/L Alkaline Phosphatase (38-126) U/L Total Creatine Kinase 106 (55-170) U/L CK-MB (CK-2) 1.4 (0.0-2.4) ng/mL CK-MB (CK-2) Rel Index 1.3 Troponin I <0.012 (0.000-0.034) ng/mL NT-Pro-B Natriuret Pep pg/mL Total Protein (6.3-8.2) g/dL Albumin (3.5-5.0) g/dL Lipase (23-300) U/L 09/08/17 09/08/17 09/08/17 Range/Units 00:10 00:10 00:10 WBC (3.8-10.6) k/uL RBC (4.30-5.90) m/uL Hgb (13.0-17.5) gm/dL Hct (39.0-53.0) % MCV (80.0-100.0) fL MCH (25.0-35.0) pg MCHC (31.0-37.0) g/dL RDW (11.5-15.5) % Plt Count (150-450) k/uL Neutrophils % % Lymphocytes % % Monocytes % % Eosinophils % % Basophils % % Neutrophils # (1.3-7.7) k/uL Lymphocytes # (1.0-4.8) k/uL Monocytes # (0-1.0) k/uL Eosinophils # (0-0.7) k/uL Basophils # (0-0.2) k/uL Hyperchromasia PT 10.1 (9.0-12.0) sec INR 1.0 (<1.2) APTT 22.2 (22.0-30.0) sec Sodium 140 (137-145) mmol/L Potassium 4.3 (3.5-5.1) mmol/L Chloride 97 L (98-107) mmol/L Carbon Dioxide 31 H (22-30) mmol/L Anion Gap 12 mmol/L BUN 35 H (9-20) mg/dL Creatinine 2.50 H (0.66-1.25) mg/dL Est GFR (CKD-EPI)AfAm 34 (>60 ml/min/1.73 sqM) Est GFR (CKD-EPI)NonAf 30 (>60 ml/min/1.73 sqM) Glucose 176 H (74-99) mg/dL POC Glucose (mg/dL) (75-99) mg/dL POC Glu Frame Polisher ID Calcium 17.6 H* (8.4-10.2) mg/dL Ionized Calcium Russell (4.5-5.3) mg/dL Phosphorus (2.5-4.5) mg/dL Magnesium 1.0 L* (1.6-2.3) mg/dL Total Bilirubin 0.6 (0.2-1.3) mg/dL AST 20 (17-59) U/L ALT 21 (21-72) U/L Alkaline Phosphatase 95 (38-126) U/L Total Creatine Kinase (55-170) U/L CK-MB (CK-2) (0.0-2.4) ng/mL CK-MB (CK-2) Rel Index Troponin I (0.000-0.034) ng/mL NT-Pro-B Natriuret Pep 46 pg/mL Total Protein 6.9 (6.3-8.2) g/dL Albumin 4.3 (3.5-5.0) g/dL Lipase (23-300) U/L 09/08/17 Range/Units 01:39 WBC (3.8-10.6) k/uL RBC (4.30-5.90) m/uL Hgb (13.0-17.5) gm/dL Hct (39.0-53.0) % MCV (80.0-100.0) fL MCH (25.0-35.0) pg MCHC (31.0-37.0) g/dL RDW (11.5-15.5) % Plt Count (150-450) k/uL Neutrophils % % Lymphocytes % % Monocytes % % Eosinophils % % Basophils % % Neutrophils # (1.3-7.7) k/uL Lymphocytes # (1.0-4.8) k/uL Monocytes # (0-1.0) k/uL Eosinophils # (0-0.7) k/uL Basophils # (0-0.2) k/uL Hyperchromasia PT (9.0-12.0) sec INR (<1.2) APTT (22.0-30.0) sec Sodium (137-145) mmol/L Potassium (3.5-5.1) mmol/L Chloride (98-107) mmol/L Carbon Dioxide (22-30) mmol/L Anion Gap mmol/L BUN (9-20) mg/dL Creatinine (0.66-1.25) mg/dL Est GFR (CKD-EPI)AfAm (>60 ml/min/1.73 sqM) Est GFR (CKD-EPI)NonAf (>60 ml/min/1.73 sqM) Glucose (74-99) mg/dL POC Glucose (mg/dL) (75-99) mg/dL POC Glu Frame Polisher ID Calcium (8.4-10.2) mg/dL Ionized Calcium Russell 8.5 H* (4.5-5.3) mg/dL Phosphorus 3.1 (2.5-4.5) mg/dL Magnesium (1.6-2.3) mg/dL Total Bilirubin (0.2-1.3) mg/dL AST (17-59) U/L ALT (21-72) U/L Alkaline Phosphatase (38-126) U/L Total Creatine Kinase (55-170) U/L CK-MB (CK-2) (0.0-2.4) ng/mL CK-MB (CK-2) Rel Index Troponin I (0.000-0.034) ng/mL NT-Pro-B Natriuret Pep pg/mL Total Protein (6.3-8.2) g/dL Albumin (3.5-5.0) g/dL Lipase 23 (23-300) U/L Disposition Clinical Impression: Orthostatic hypotension, Dehydration, Hypercalcemia, Hypomagnesemia Disposition: ADMITTED IP TO THIS [facility] Condition: Stable Referrals: Cristi Mary MD [Primary Care Provider] - 1-2 days Decision to Admit Reason: Admit from EC Decision Date: 09/08/17 Decision Time: 02:04
[2017-09-08 00:23] LABS: Basophils # (A) 0.1 k/uL (0-0.2); Basophils % (A) 1 %; Eosinophils # (A) 0.3 k/uL (0-0.7); Eosinophils % (A) 2 %; HCT 40.5 % (39.0-53.0); HGB 14.5 gm/dL (13.0-17.5); Hyperchromasia Slight; Lymphocytes # (A) 1.6 k/uL (1.0-4.8); Lymphocytes % (A) 12 %; MCH 29.4 pg (25.0-35.0); MCHC 35.9 g/dL (31.0-37.0); MCV 81.8 fL (80.0-100.0); Mean Platelet Volume 7.7; Monocytes # (A) 0.8 k/uL (0-1.0); Monocytes % (A) 6 %; Neutrophils # (A) 10.3 k/uL (1.3-7.7); Neutrophils % (A) 78 %; Platelet Count 296 k/uL (150-450); RBC 4.95 m/uL (4.30-5.90); RDW 12.5 % (11.5-15.5); WBC 13.2 k/uL (3.8-10.6)
[2017-09-08 00:34] LABS: Albumin 4.3 g/dL (3.5-5.0); Potassium 4.3 mmol/L (3.5-5.1); Total Bilirubin 0.6 mg/dL (0.2-1.3); Total Protein 6.9 g/dL (6.3-8.2)
[2017-09-08 00:41] LABS: Partial Thromboplastin Time 22.2 sec (22.0-30.0); Prothrombin Time 10.1 sec (9.0-12.0)
[2017-09-08 00:44] LABS: Creatine Kinase 106 U/L (55-170)
[2017-09-08 00:57] LABS: Creatine Kinase MB 1.4 ng/mL (0.0-2.4); Troponin I <0.012 ng/mL (0.000-0.034)
[2017-09-08 01:01] LABS: Calcium 17.6 mg/dL (8.4-10.2)
--- NOTE | 2017-09-08 01:02 | XR ---
EXAMINATION TYPE: XR chest 1V portable DATE OF EXAM: 09/08/2017 COMPARISON: 07/23/2014 HISTORY: Dizziness TECHNIQUE: Single frontal view of the chest is obtained. FINDINGS: There is no heart failure nor confluent pneumonic infiltrate. Heart size is normal. Costop hrenic angles are clear. Bony thorax appears intact. IMPRESSION: Normal chest. No change.
--- NOTE | 2017-09-08 01:04 | CT ---
EXAMINATION TYPE: CT brain wo con DATE OF EXAM: 09/08/2017 COMPARISON: 07/23/2014 HISTORY: Prior on synapse, dizziness with nausea near syncope CT DLP: 995.50 mGycm. Automated Exposure Control for Dose Reduction was Utilized. TECHNIQUE: CT scan of the head is performed without contrast. FINDINGS: Ventricles and sulci appear normal. There is no mass effect nor midline shift. There is no sign of intracranial hemorrhage. The calvarium is intact. CONCLUSION: Normal CT scan of the brain. No change.
[2017-09-08] MEDS ORDERED: SODIUM CHLORIDE 0.9% 1,000 ML IV ONE (01:13)
[2017-09-08] MEDS: MAGNESIUM SULFATE-D5W PMX 1 GM in DEXTROSE/WATER 1 100ML.BAG IVPB SCH ×4 (01:22→15:59)
[2017-09-08] MEDS ORDERED: CALCITONIN INJ 200 UNIT/ML (MDV) VIAL SUBDERMAL STA (01:50)
[2017-09-08 01:57] LABS: Phosphorus 3.1 mg/dL (2.5-4.5)
[2017-09-08] MEDS ORDERED: NALOXONE 0.4 MG/ML 1 ML VIAL IV PRN (01:57)
[2017-09-08] MEDS ORDERED: ACETAMINOPHEN TAB 325 MG TAB PO PRN (01:57)
[2017-09-08 02:00] LABS: Ionized Calcium 8.5 mg/dL (4.5-5.3)
[2017-09-08] MEDS: SODIUM CHLORIDE 0.9% 1,000 ML IV SCH ×5 (02:26→23:14)
[2017-09-08] MEDS ORDERED: ONDANSETRON 4 MG/2 ML VIAL IVP STA ×3 (02:42→06:04)
[2017-09-08 03:42] LABS: Appearance,Urine Clear (Clear); Bilirubin,Urine Negative (Negative); Blood,Urine Negative (Negative); Color,Urine Light Yellow; Glucose,Urine (UA) Negative (Negative); Hyaline Casts,Urine 5 /lpf (0-2); Ketones,Urine Negative (Negative); Leukocyte Esterase,Urine Trace (Negative); Mucus,Urine Rare /hpf; Nitrite,Urine Negative (Negative); Protein,Urine Trace (Negative); RBC,Urine 1 /hpf (0-5); Specific Gravity,Urine 1.006 (1.001-1.035); Squamous Epithelial Cell,Urine <1 /hpf (0-4); Urobilinogen,Urine <2.0 mg/dL (<2.0); WBC,Urine 7 /hpf (0-5)
[2017-09-08 06:33] LABS: Basophils % (A) 0 %; Eosinophils # (A) 0.2 k/uL (0-0.7); Eosinophils % (A) 2 %; HGB 12.7 gm/dL (13.0-17.5); Lymphocytes # (A) 1.3 k/uL (1.0-4.8); Lymphocytes % (A) 13 %; MCH 29.2 pg (25.0-35.0); MCHC 36.2 g/dL (31.0-37.0); MCV 80.7 fL (80.0-100.0); Mean Platelet Volume 7.2; Monocytes # (A) 0.7 k/uL (0-1.0); Monocytes % (A) 7 %; Neutrophils # (A) 7.7 k/uL (1.3-7.7); Neutrophils % (A) 77 %; Platelet Count 266 k/uL (150-450); RBC 4.34 m/uL (4.30-5.90); RDW 12.4 % (11.5-15.5)
[2017-09-08 06:43] LABS: Albumin 3.5 g/dL (3.5-5.0); Magnesium 1.4 mg/dL (1.6-2.3); Phosphorus 2.3 mg/dL (2.5-4.5); Potassium 3.7 mmol/L (3.5-5.1); Total Bilirubin 0.4 mg/dL (0.2-1.3)
--- NOTE | 2017-09-08 07:48 | P.HPIM ---
History of Present Illness H&P Date: 09/08/17 Chief Complaint: Lightheadedness. This is a 46 -year-old white male essentially with known history of insulin dependent diabetes who comes in with several day history of lightheadedness. No nausea no chest pain no significant palpitations. However given his workup in the emergency room he was found have significant elevated hypercalcemia. No history of parathyroidism in the past. Historical query shows that he has, for the last several months, been taking excessive Tums for heartburn. He states he takes up to 20-30 tablets per day for the last several months. The patient states that he said significant heartburn. No hematemesis or hematochezia. No dysuria stated. Review of Systems Constitutional: Denies chills, Denies fever Eyes: denies blurred vision, denies pain Ears, nose, mouth and throat: Denies headache, Denies sore throat Cardiovascular: Denies chest pain, Denies shortness of breath Respiratory: Denies cough Gastrointestinal: Denies abdominal pain, Denies diarrhea, Denies nausea, Denies vomiting Musculoskeletal: Denies myalgias Neurological: Reports as per HPI Past Medical History Past Medical History: Diabetes Mellitus, Renal Disease Additional Past Medical History / Comment(s): dizziness Other HX: IDDM, renal insufficency diabetic neuropathy, diabetic ketoacidosis, hypercalcemia History of Any Multi-Drug Resistant Organisms: None Reported Past Surgical History: No Surgical Hx Reported Additional Past Surgical History / Comment(s): renal stent 06/30 Past Anesthesia/Blood Transfusion Reactions: No Reported Reaction Past Psychological History: No Psychological Hx Reported Smoking Status: Current every day smoker Past Alcohol Use History: None Reported Past Drug Use History: None Reported - Past Family History Mother Family Medical History: Diabetes Mellitus Additional Family Medical History / Comment(s): mother is Father Family Medical History: No Reported History Medications and Allergies Home Medications Medication Instructions Recorded Confirmed Type Lisinopril [Zestril] 10 mg PO DAILY 07/23/14 09/08/17 History Insulin Aspart [NovoLOG Flexpen] See Protocol SQ AC-TID 11/16/16 09/08/17 History Insulin Degludec [Tresiba 52 unit SQ HS 11/16/16 09/08/17 History Flextouch U-200] Allergies Allergy/AdvReac Type Severity Reaction Status Date / Time No Known Allergies Allergy Verified 09/08/17 06:48 Physical Exam Vitals: Vital Signs Temp Pulse Pulse Pulse Pulse Resp BP 09/08/17 07:12 90 14 119/69 09/08/17 06:44 99.0 F 09/08/17 05:10 98.0 F 92 14 123/61 09/08/17 04:15 98.0 F 93 14 127/64 09/08/17 03:14 97.7 F 100 14 145/82 09/08/17 02:27 97.9 F 89 14 135/62 09/08/17 01:28 97.4 F L 97 14 133/65 09/08/17 01:01 97.1 F L 90 14 130/63 09/08/17 00:13 98 118 H 97 14 09/07/17 23:51 97.8 F 106 H 18 107/67 BP BP BP Pulse Ox 09/08/17 07:12 98 09/08/17 06:44 09/08/17 05:10 98 09/08/17 04:15 97 09/08/17 03:14 96 09/08/17 02:27 91 L 09/08/17 01:28 98 09/08/17 01:01 99 09/08/17 00:13 131/60 93/55 139/78 98 09/07/17 23:51 97 Intake and Output 09/07/17 09/08/17 09/08/17 22:59 06:59 14:59 Other: Weight 104.326 kg - Constitutional General appearance: no acute distress - EENT Eyes: EOMI - Neck Neck: no lymphadenopathy - Respiratory Respiratory: bilateral: CTA - Cardiovascular Rhythm: regular Heart sounds: normal: S1, S2 Abnormal Heart Sounds: no S3 Gallop - Gastrointestinal General gastrointestinal: soft, no tenderness - Neurologic Neurologic: CNII-XII intact - Psychiatric Psychiatric: A&O x's 3, no appropriate affect Results CBC & Chem 7: 09/08/17 06:20 09/08/17 06:20 Labs: Abnormal Lab Results - Last 24 Hours (Table) 09/08/17 09/08/17 09/08/17 Range/Units 00:05 00:10 00:10 WBC 13.2 H (3.8-10.6) k/uL Hgb (13.0-17.5) gm/dL Hct (39.0-53.0) % Neutrophils # 10.3 H (1.3-7.7) k/uL Chloride 97 L (98-107) mmol/L Carbon Dioxide 31 H (22-30) mmol/L BUN 35 H (9-20) mg/dL Creatinine 2.50 H (0.66-1.25) mg/dL Glucose 176 H (74-99) mg/dL POC Glucose (mg/dL) 170 H (75-99) mg/dL Calcium 17.6 H* (8.4-10.2) mg/dL Ionized Calcium Russell (4.5-5.3) mg/dL Phosphorus (2.5-4.5) mg/dL Magnesium 1.0 L* (1.6-2.3) mg/dL AST (17-59) U/L ALT (21-72) U/L Total Protein (6.3-8.2) g/dL TSH (0.465-4.680) mIU/L Urine Protein (Negative) Ur Leukocyte Esterase (Negative) Urine WBC (0-5) /hpf Hyaline Casts (0-2) /lpf Urine Mucus (None) /hpf 09/08/17 09/08/17 09/08/17 Range/Units 01:39 03:28 06:20 WBC (3.8-10.6) k/uL Hgb 12.7 L (13.0-17.5) gm/dL Hct 35.0 L (39.0-53.0) % Neutrophils # (1.3-7.7) k/uL Chloride (98-107) mmol/L Carbon Dioxide (22-30) mmol/L BUN (9-20) mg/dL Creatinine (0.66-1.25) mg/dL Glucose (74-99) mg/dL POC Glucose (mg/dL) (75-99) mg/dL Calcium (8.4-10.2) mg/dL Ionized Calcium Russell 8.5 H* (4.5-5.3) mg/dL Phosphorus (2.5-4.5) mg/dL Magnesium (1.6-2.3) mg/dL AST (17-59) U/L ALT (21-72) U/L Total Protein (6.3-8.2) g/dL TSH 0.186 L (0.465-4.680) mIU/L Urine Protein Trace H (Negative) Ur Leukocyte Esterase Trace H (Negative) Urine WBC 7 H (0-5) /hpf Hyaline Casts 5 H (0-2) /lpf Urine Mucus Rare H (None) /hpf 09/08/17 Range/Units 06:20 WBC (3.8-10.6) k/uL Hgb (13.0-17.5) gm/dL Hct (39.0-53.0) % Neutrophils # (1.3-7.7) k/uL Chloride (98-107) mmol/L Carbon Dioxide (22-30) mmol/L BUN 31 H (9-20) mg/dL Creatinine 1.90 H (0.66-1.25) mg/dL Glucose (74-99) mg/dL POC Glucose (mg/dL) (75-99) mg/dL Calcium 15.0 H* (8.4-10.2) mg/dL Ionized Calcium Russell (4.5-5.3) mg/dL Phosphorus 2.3 L (2.5-4.5) mg/dL Magnesium 1.4 L (1.6-2.3) mg/dL AST 16 L (17-59) U/L ALT 20 L (21-72) U/L Total Protein 6.0 L (6.3-8.2) g/dL TSH (0.465-4.680) mIU/L Urine Protein (Negative) Ur Leukocyte Esterase (Negative) Urine WBC (0-5) /hpf Hyaline Casts (0-2) /lpf Urine Mucus (None) /hpf Assessment and Plan (1) Hypercalcemia Current Visit: Yes Status: Acute Code(s): E83.52 - HYPERCALCEMIA SNOMED Code(s): 26430304 (2) Hypomagnesemia Current Visit: Yes Status: Acute Code(s): E83.42 - HYPOMAGNESEMIA SNOMED Code(s): 755585142 (3) Diabetes mellitus Current Visit: No Status: Acute Code(s): E11.9 - TYPE 2 DIABETES MELLITUS WITHOUT COMPLICATIONS SNOMED Code(s): 09882776 (4) Dizziness Current Visit: No Status: Acute Code(s): R42 - DIZZINESS AND GIDDINESS SNOMED Code(s): 814795559 Plan: Due to his significant hypercalcemia, significant hydration with appropriate electrolyte control. Nephrology was consulted. New. Check PTH. Check CBC and CMP in a.m. The patient counseled at length on excessive use of Tums. Otherwise, the patient's full code. See orders otherwise. Time with Patient: Greater than 30
[2017-09-08] MEDS: CALCITONIN INJ 200 UNIT/ML (MDV) VIAL SUBDERMAL SCH ×2 (11:20→21:56)
--- NOTE | 2017-09-08 11:33 | P.NPCON ---
History of Present Illness - Reason for Consult acute renal failure - History of Present Illness Reason for consultation: Acute kidney injury and hypercalcemia History of present illness: Patient is a 46-year-old male seen in renal consultation for acute kidney injury and hypercalcemia. Patient presented to the hospital with generalized weakness and lightheadedness. Patient states he was at work and while walking he felt like he was going to pass out. Patient denies losing consciousness. He denies any falls. Patient took a cab and came to the hospital. His creatinine was elevated at 2.5 and his calcium level was elevated at 17.6. Patient does admit to taking 20-30 tablets of Tums on a daily basis for the last 3-4 months. Patient denies any history of malignancy. He denies taking any vitamin D supplements. Patient does have a long-standing history of diabetes mellitus and does take lisinopril as an outpatient. Patient was not significantly hypotensive and blood pressure this morning was 119/64. He admits to good urine output. Denies any hematuria or dysuria. Denies any chest pain or shortness of breath. Patient was started on calcitonin twice daily and is also maintained on normal saline at 200 mL an hour. Urinalysis does reveal trace proteinuria which is likely due to his underlying diabetic kidney disease. Creatinine this morning is down to 1.9. Vital signs are stable. General: The patient appeared well nourished and normally developed. HEENT: Head exam is unremarkable. Neck is without jugular venous distension. LUNGS: Lungs are clear to auscultation and percussion. Breath sounds decreased. HEART: Rate and Rhythm are regular. First and second heart sounds normal. No murmurs, rubs or gallops. ABDOMEN: Abdominal exam reveals normal bowel sounds. Non-tender and non- distended. No evidence of peritonitis. EXTREMITITES: No clubbing, cyanosis, or edema. Past Medical History Past Medical History: Diabetes Mellitus, GERD/Reflux, Renal Disease Additional Past Medical History / Comment(s): IDDM type II, diabetic neuropathy bilateral feet, DKA, renal insufficiency, hypercalemia, past perianal abscess/ fistula with surgery, BPH/urinary retention with surgery, UTI. History of Any Multi-Drug Resistant Organisms: None Reported Past Surgical History: No Surgical Hx Reported Additional Past Surgical History / Comment(s): 08/2014 cystoscopy with TURP, rectal exam/I&D/fistulotomy. Past Anesthesia/Blood Transfusion Reactions: No Reported Reaction Smoking Status: Current every day smoker - Past Family History Mother Family Medical History: Diabetes Mellitus Additional Family Medical History / Comment(s): mother is Father Family Medical History: No Reported History Additional Family Medical History / Comment(s): Father is healthy. Medications and Allergies Home Medications Medication Instructions Recorded Confirmed Type Lisinopril [Zestril] 10 mg PO DAILY 07/23/14 09/08/17 History Insulin Aspart [NovoLOG Flexpen] See Protocol SQ AC-TID 11/16/16 09/08/17 History Insulin Degludec [Tresiba 52 unit SQ HS 11/16/16 09/08/17 History Flextouch U-200] Allergies Allergy/AdvReac Type Severity Reaction Status Date / Time No Known Allergies Allergy Verified 09/08/17 06:48 Physical Exam Vitals: Vital Signs Temp Pulse Pulse Pulse Pulse Resp BP 09/08/17 10:08 86 16 119/64 09/08/17 07:12 90 14 119/69 09/08/17 06:44 99.0 F 09/08/17 05:10 98.0 F 92 14 123/61 09/08/17 04:15 98.0 F 93 14 127/64 09/08/17 03:14 97.7 F 100 14 145/82 09/08/17 02:27 97.9 F 89 14 135/62 09/08/17 01:28 97.4 F L 97 14 133/65 09/08/17 01:01 97.1 F L 90 14 130/63 09/08/17 00:13 98 118 H 97 14 09/07/17 23:51 97.8 F 106 H 18 107/67 BP BP BP Pulse Ox 09/08/17 10:08 98 09/08/17 07:12 98 09/08/17 06:44 09/08/17 05:10 98 09/08/17 04:15 97 09/08/17 03:14 96 09/08/17 02:27 91 L 09/08/17 01:28 98 09/08/17 01:01 99 09/08/17 00:13 131/60 93/55 139/78 98 09/07/17 23:51 97 Intake and Output 04/09/08/17 09/08/17 22:59 06:59 14:59 Other: Weight 104.326 kg Results - Lab Results Most recent lab results Calcium 15.0 mg/dL (8.4-10.2) H* 09/08/17 06:20 Phosphorus 2.3 mg/dL (2.5-4.5) L 09/08/17 06:20 Magnesium 1.4 mg/dL (1.6-2.3) L 09/08/17 06:20 09/08/17 06:20 09/08/17 06:20 Assessment and Plan Plan: Assessment: #1. Nonoliguric acute kidney injury mostly prerenal secondary to hypercalcemia induced volume depletion. Creatinine was 2.5 on admission and is down to 1.9 today. Creatinine in November 2016 was 1.05. #2. 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 Patient was taking 20-30 tablets of Tums on a daily basis. Improving with IV hydration. #3. Metabolic alkalosis secondary to hypercalcemia induced volume contraction as well as alkali ingestion. Bicarb level was 31 and is down to 28. #4. Hypomagnesemia due to impaired magnesium reabsorption from hypercalcemia. Improved post replacement. #5. Benign hypertension. Currently controlled. #6. Insulin-dependent diabetes mellitus. #7. Rule out CKD. Patient has proteinuria on urinalysis which is likely secondary to underlying diabetic kidney disease. Will quantify proteinuria once GFR returns to baseline. This can be done as an outpatient. Plan: Continue normal saline to be run at 200 mL an hour. Maintain calcitonin twice daily for now. Expect improvement in alkalosis as well as hypercalcemia by withholding calcium supplementation. Replace magnesium. 2 g IV today. Check PTH and vitamin D levels. Expect the PTH to be suppressed in the setting of milk-alkali syndrome. Repeat electrolytes in the morning. Thank you for the consultation. I will continue to follow the patient with you during his hospital stay.
[2017-09-08 12:07] LABS: Glucose,Whole Blood 95 mg/dL (75-99)
[2017-09-08] MEDS: METOCLOPRAMIDE 5 MG/ML 2 ML VIAL IVP PRN ×2 (14:25→23:48)
[2017-09-08 16:20] LABS: Glucose,Whole Blood 171 mg/dL (75-99)
[2017-09-08] MEDS: INSULIN ASPART 100 UNIT/ML 1 ML 10 ML VIAL SQ SCH ×2 (17:34→21:19)
[2017-09-08 20:53] LABS: Glucose,Whole Blood 166 mg/dL (75-99)
[2017-09-08] MEDS: INSULIN DETEMIR 100 UNIT/ML 10 ML VIAL SQ SCH (21:19)
[2017-09-09] MEDS: METOCLOPRAMIDE 5 MG/ML 2 ML VIAL IVP PRN ×3 (06:19→18:42)
[2017-09-09] MEDS: SODIUM CHLORIDE 0.9% 1,000 ML IV SCH ×7 (06:22→21:07)
[2017-09-09 06:29] LABS: Glucose,Whole Blood 109 mg/dL (75-99)
[2017-09-09] MEDS: INSULIN ASPART 100 UNIT/ML 1 ML 10 ML VIAL SQ SCH ×4 (06:31→21:07)
[2017-09-09 07:15] LABS: Calcium 11.4 mg/dL (8.4-10.2); Magnesium 1.1 mg/dL (1.6-2.3); Potassium 3.8 mmol/L (3.5-5.1)
--- NOTE | 2017-09-09 07:57 | P.PN ---
Subjective Progress Note Date: 09/09/17 Principal diagnosis: Hypercalcemia. This is a continuing progress note on 46-year-old white male with known history of type 1 diabetes with element of milk alkali syndrome secondary to significant Tums and calcium carbonate ingestion. The patient is now complaining significant nausea. He does not complain of heartburn. We will add Zofran to his Reglan red blood sugar has otherwise been stable. Objective - Vital Signs Vital signs: Vital Signs Temp 98.0 F 09/09/17 04:00 Pulse 88 09/09/17 04:00 Resp 18 09/09/17 04:00 BP 147/74 09/09/17 04:00 Pulse Ox 96 09/09/17 04:00 Intake & Output 09/08/17 09/09/17 09/09/17 18:59 06:59 18:59 Intake Total 1999 Balance 1999 Intake: IV 2000 Sodium Chloride 0.9% 1, 2000 000 ml @ 200 mls/hr IV . Q5H [facility] Rx#:[id number] Other: # Voids 2 - Constitutional General appearance: Present: average body habitus - EENT Eyes: Absent: abnormal pupil - Respiratory Respiratory: bilateral: CTA - Cardiovascular Rhythm: regular Heart sounds: normal: S1, S2 Abnormal Heart Sounds: Absent: S3 Gallop - Gastrointestinal General gastrointestinal: Present: soft. Absent: tenderness - Integumentary Integumentary: Absent: cellulitis, rash - Labs CBC & Chem 7: 09/08/17 06:20 09/09/17 06:49 Labs: Abnormal Lab Results - Last 24 Hours (Table) 09/08/17 09/08/17 09/08/17 Range/Units 01:39 06:20 16:16 Chloride (98-107) mmol/L BUN (9-20) mg/dL Creatinine (0.66-1.25) mg/dL Glucose (74-99) mg/dL POC Glucose (mg/dL) 171 H (75-99) mg/dL Calcium (8.4-10.2) mg/dL Magnesium (1.6-2.3) mg/dL Vitamin D 25-Hydroxy 14.0 L (30.0-100.0) ng/mL PTH Intact 13.9 L (14.0-72.0) pg/mL 09/08/17 09/09/17 09/09/17 Range/Units 20:51 06:28 06:49 Chloride 108 H (98-107) mmol/L BUN 23 H (9-20) mg/dL Creatinine 1.58 H (0.66-1.25) mg/dL Glucose 103 H (74-99) mg/dL POC Glucose (mg/dL) 166 H 109 H (75-99) mg/dL Calcium 11.4 H (8.4-10.2) mg/dL Magnesium 1.1 L (1.6-2.3) mg/dL Vitamin D 25-Hydroxy (30.0-100.0) ng/mL PTH Intact (14.0-72.0) pg/mL Assessment and Plan (1) Hypercalcemia Current Visit: Yes Status: Acute Code(s): E83.52 - HYPERCALCEMIA SNOMED Code(s): 79817453 (2) Hypomagnesemia Current Visit: Yes Status: Acute Code(s): E83.42 - HYPOMAGNESEMIA SNOMED Code(s): 479903981 (3) Diabetes mellitus Current Visit: No Status: Acute Code(s): E11.9 - TYPE 2 DIABETES MELLITUS WITHOUT COMPLICATIONS SNOMED Code(s): 36515743 (4) Dizziness Current Visit: No Status: Acute Code(s): R42 - DIZZINESS AND GIDDINESS SNOMED Code(s): 702461662 Plan: Continue current regimen of fluid resuscitation. Add Zofran to Reglan. Check CMP and magnesium in a.m. Anticipate discharge in a.m. if stable and tolerating diet. Appreciate nephrology input. Dr. Camara's group will be covering for the weekend. Time with Patient: Less than 30
[2017-09-09] MEDS: LISINOPRIL 10 MG TAB PO SCH (08:22)
[2017-09-09] MEDS: ONDANSETRON 4 MG/2 ML VIAL IVP PRN ×3 (08:22→21:39)
--- NOTE | 2017-09-09 09:06 | P.PN ---
Subjective Patient is seen in follow-up for acute kidney injury and hypercalcemia. His calcium level was 17.6 on admission and is down 11.4 today. He is currently maintained on normal saline at 200 mL an hour as well as calcitonin. Creatinine is down to 1.58 today. Patient was taking 20-30 tablets of Tums every day. Still has intermittent episodes of nausea and vomiting. Denies chest pain or shortness of breath. Admits to good urine output. Vital signs are stable. General: The patient appeared well nourished and normally developed. HEENT: Head exam is unremarkable. Neck is without jugular venous distension. LUNGS: Lungs are clear to auscultation and percussion. Breath sounds decreased. HEART: Rate and Rhythm are regular. First and second heart sounds normal. No murmurs, rubs or gallops. ABDOMEN: Abdominal exam reveals normal bowel sounds. Non-tender and non- distended. No evidence of peritonitis. EXTREMITITES: No clubbing, cyanosis, or edema. Objective - Vital Signs Vital signs: Vital Signs Temp 97.4 F L 09/09/17 08:00 Pulse 83 09/09/17 08:00 Resp 18 09/09/17 08:00 BP 131/71 09/09/17 08:00 Pulse Ox 96 09/09/17 08:00 Intake & Output 09/08/17 09/09/17 09/09/17 18:59 06:59 18:59 Intake Total 1999 Balance 1999 Intake: IV 2000 Sodium Chloride 0.9% 1, 2000 000 ml @ 200 mls/hr IV . Q5H [facility] Rx#:[id number] Other: # Voids 2 - Labs CBC & Chem 7: 09/08/17 06:20 09/09/17 06:49 Labs: Abnormal Lab Results - Last 24 Hours (Table) 09/08/17 09/08/17 09/08/17 Range/Units 01:39 06:20 16:16 Chloride (98-107) mmol/L BUN (9-20) mg/dL Creatinine (0.66-1.25) mg/dL Glucose (74-99) mg/dL POC Glucose (mg/dL) 171 H (75-99) mg/dL Calcium (8.4-10.2) mg/dL Magnesium (1.6-2.3) mg/dL Vitamin D 25-Hydroxy 14.0 L (30.0-100.0) ng/mL PTH Intact 13.9 L (14.0-72.0) pg/mL 09/08/17 09/09/17 09/09/17 Range/Units 20:51 06:28 06:49 Chloride 108 H (98-107) mmol/L BUN 23 H (9-20) mg/dL Creatinine 1.58 H (0.66-1.25) mg/dL Glucose 103 H (74-99) mg/dL POC Glucose (mg/dL) 166 H 109 H (75-99) mg/dL Calcium 11.4 H (8.4-10.2) mg/dL Magnesium 1.1 L (1.6-2.3) mg/dL Vitamin D 25-Hydroxy (30.0-100.0) ng/mL PTH Intact (14.0-72.0) pg/mL Assessment and Plan Plan: Assessment: #1. Nonoliguric acute kidney injury mostly prerenal secondary to hypercalcemia induced volume depletion. Creatinine was 2.5 on admission and is down to 1.58 today. Creatinine in November 2016 was 1.05. #2. 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 Patient was taking 20-30 tablets of Tums on a daily basis. Improving with IV hydration. #3. Metabolic alkalosis secondary to hypercalcemia induced volume contraction as well as alkali ingestion. Bicarb level was 31 and is down to 23. #4. Hypomagnesemia due to impaired magnesium reabsorption from hypercalcemia. #5. Benign hypertension. Currently controlled. #6. Insulin-dependent diabetes mellitus. #7. Rule out CKD. Patient has proteinuria on urinalysis which is likely secondary to underlying diabetic kidney disease. Will quantify proteinuria once GFR returns to baseline. This can be done as an outpatient. Plan: I will decrease the rate of normal saline 250 mL an hour. Discontinue calcitonin. Expect improvement in alkalosis as well as hypercalcemia by withholding calcium supplementation. Replace magnesium. 3 g IV today. PTH is appropriately suppressed which is expected with milk-alkali syndrome. Repeat electrolytes in the morning.
[2017-09-09] MEDS: MAGNESIUM SULFATE-D5W PMX 1 GM in DEXTROSE/WATER 1 100ML.BAG IVPB SCH ×3 (10:27→13:53)
[2017-09-09 11:26] LABS: Glucose,Whole Blood 108 mg/dL (75-99)
[2017-09-09 16:36] LABS: Glucose,Whole Blood 163 mg/dL (75-99)
[2017-09-09 20:25] LABS: Glucose,Whole Blood 344 mg/dL (75-99)
[2017-09-09] MEDS: INSULIN DETEMIR 100 UNIT/ML 10 ML VIAL SQ SCH (21:06)
[2017-09-10] MEDS: METOCLOPRAMIDE 5 MG/ML 2 ML VIAL IVP PRN (00:49)
[2017-09-10] MEDS: SODIUM CHLORIDE 0.9% 1,000 ML IV SCH ×2 (05:30→11:11)
[2017-09-10 05:54] LABS: Glucose,Whole Blood 83 mg/dL (75-99)
[2017-09-10] MEDS: INSULIN ASPART 100 UNIT/ML 1 ML 10 ML VIAL SQ SCH ×2 (06:14→11:21)
[2017-09-10 07:06] LABS: Calcium 10.4 mg/dL (8.4-10.2); Magnesium 1.2 mg/dL (1.6-2.3); Potassium 3.6 mmol/L (3.5-5.1)
[2017-09-10] MEDS: LISINOPRIL 10 MG TAB PO SCH (08:00)
[2017-09-10 08:03] VITALS: RESP 18
[2017-09-10 11:11] VITALS: BP 137/98; PULSE 83; TEMP 97.5
--- NOTE | 2017-09-10 11:11 | P.PN ---
Subjective Progress Note Date: 09/10/17 Principal diagnosis: This is a 46-year-old male seen in consultation because of severe hyperkalemia secondary to milk of chronic syndrome. He was taking 20-30 tablets of Tums. The past he has had again a significant episode of hypercalcemia. Calcium of 14 in 2013. His calciums have been coming down his creatinine is improved. His magnesium remains low at 1.2, was 1 when he came in He denies any complaints at all. No headache, constipation, weakness tiredness. Is able to walk. He has a good appetite. Objective - Vital Signs Vital signs: Vital Signs Temp 97.4 F L 09/10/17 08:00 Pulse 79 09/10/17 08:00 Resp 18 09/10/17 08:00 BP 113/56 09/10/17 08:00 Pulse Ox 98 09/10/17 09:07 Intake & Output 09/09/17 09/10/17 09/10/17 18:59 06:59 18:59 Intake Total 360 0 480 Balance 360 0 480 Weight 101.8 kg Intake: IV 0 Sodium Chloride 0.9% 1, 0 000 ml @ 150 mls/hr IV . Q6H40M [facility] Rx#:[id number] Oral 360 480 Other: # Voids 1 2 On examination is awake alert oriented comfortable HEENT exam no JVP neck is supple no facial asymmetry Lungs clear to auscultation percussion good air entry bilaterally Heart sounds are unremarkable no murmur rub gallop Abdomen soft nontender no organomegaly status masses Skin exam was no edema Neurologically awake alert oriented - Labs CBC & Chem 7: 09/08/17 06:20 09/10/17 06:38 Labs: Abnormal Lab Results - Last 24 Hours (Table) 09/08/17 09/09/17 09/09/17 Range/Units 06:20 11:19 16:32 Creatinine (0.66-1.25) mg/dL Glucose (74-99) mg/dL POC Glucose (mg/dL) 108 H 163 H (75-99) mg/dL Calcium (8.4-10.2) mg/dL Magnesium (1.6-2.3) mg/dL Vit D 1,25-Dihydroxy <5 L (20 - 79) pg/mL 09/09/17 09/10/17 Range/Units 20:24 06:38 Creatinine 1.49 H (0.66-1.25) mg/dL Glucose 66 L (74-99) mg/dL POC Glucose (mg/dL) 344 H (75-99) mg/dL Calcium 10.4 H (8.4-10.2) mg/dL Magnesium 1.2 L (1.6-2.3) mg/dL Vit D 1,25-Dihydroxy (20 - 79) pg/mL Assessment and Plan Assessment: Impression. 1. Hypercalcemia secondary to Tums, calcium down from 17-10.4 2. Acute kidney injury secondary to hypercalcemia creatinine down to 1.49. 3. Hypomagnesemia secondary to hypercalcemia. Magnesium still low at 1.2. 4. Baseline creatinine 1.25 on 11/17/2016 and was 1.05 on 11/16/2016. 5. Hypertension controlled Recommendation. 1. Patient may be discharged to be followed up closely in the office with labs. 2. Avoid any calcium containing medications. Patient has had hypercalcemia in 2013 calcium was 14.7 dated 04/27/2014 in the interim calcium has been 8.2 as of 11/18/2016. 3. Patient was told about the dangers of hypercalcemia., He was instructed not to take any calcium containing medications antacids or supplements without close observation. Patient can be discharged per primary physician's assessment
[2017-09-10] MEDS: ONDANSETRON 4 MG/2 ML VIAL IVP PRN (11:14)
[2017-09-10 11:20] LABS: Glucose,Whole Blood 229 mg/dL (75-99)
--- NOTE | 2017-09-12 16:07 | CDI ---
Documentation Clarification Form Date: 09/12/2017 12:00:00 AM From: FUAD Valdez; Viviana Leo House Painter Phone: If you have a question about this query, please contact Viviana Leo House Painter at [phone] between 8am and 5pm. Admit Date: 09/08/2017 1:57:00 AM Patient Name: Wilson Seymour Visit Number: [id number] Discharge Date: 09/10/2017 ATTENTION: The Clinical Documentation Specialists (CDI) and [facility] Coding Staff appreciate your assistance in clarifying documentation. Please respond to the clarification below the line at the bottom and electronically sign. The CDI & [facility] Coding staff will review the response and follow-up if needed. Please note: Queries are made part of the Legal Health Record. If you have any questions, please contact the author of this message via ITS. , History/Risk Factors: Diabetic and hypertension. Clinical Indicators: On admission, hypercalcemia, QUIQUE and hypomagnesemia. Current BUN/CR/GFR: 31, 1.90, 41 Patients Baseline: BUN/CR/GFR: Cr baseline 1.05. Per consult, proteinuria which is likely secondary to underlying diabetic kidney disease. In order to capture the severity of condition, please clarify if the condition signifies: CKD Stage 1 (GFR > 90) CKD Stage 2 (GFR 60-89) CKD Stage 3 (GFR 30-59) CKD Stage 4 (GFR 15-29) CKD Stage 5 (GFR <15) ESRD Other, please specify Unable to determine MTDD
--- NOTE | 2017-09-12 16:09 | CDI ---
Documentation Clarification Form Date: 09/12/2017 12:00:00 AM From: FUAD Valdez; Viviana Leo Rigger Helper Phone: If you have a question about this query, please contact Viviana Leo Rigger Helper at [phone] between 8am and 5pm. Admit Date: 09/08/2017 1:57:00 AM Patient Name: Wilson Seymour Visit Number: [id number] Discharge Date: 09/10/2017 ATTENTION: The Clinical Documentation Specialists (CDI) and [facility] Coding Staff appreciate your assistance in clarifying documentation. Please respond to the clarification below the line at the bottom and electronically sign. The CDI & [facility] Coding staff will review the response and follow-up if needed. Please note: Queries are made part of the Legal Health Record. If you have any questions, please contact the author of this message via ITS. Dr. Cristi Mary Patient presented with hypercalcemia due to ingestion of Tums. He also has DM. There is conflicting documentation in reference to the type; whether type I or type II. Mr. Seymour is on daily Insulin. In your professional opinion, can you please clarify? DM type I DM type II Other, please specify Unable to determine MTDD
== END 2017-09-10 11:36 | disposition left against medical advice (07) | DRG 641 ==
LOC: EC 23:50 → 6SEL 09-08 01:57
PROVIDERS: ADMIT Family Medicine; ATTEND Family Medicine
DX: E83.52 Hypercalcemia (principal); N17.9 Acute kidney failure, unspecified; E87.3 Alkalosis; D72.829 Elevated white blood cell count, unspecified; I12.9 Hypertensive chronic kidney disease with stage 1 through stage 4 chronic kidney disease, or unspecified chronic kidney disease; N18.9 Chronic kidney disease, unspecified; E83.42 Hypomagnesemia; E86.0 Dehydration; F17.200 Nicotine dependence, unspecified, uncomplicated; K21.9 Gastro-esophageal reflux disease without esophagitis; E11.40 Type 2 diabetes mellitus with diabetic neuropathy, unspecified; E11.22 Type 2 diabetes mellitus with diabetic chronic kidney disease; T54.3X1A Toxic effect of corrosive alkalis and alkali-like substances, accidental (unintentional), initial encounter; Z79.4 Long term (current) use of insulin; Z79.899 Other long term (current) drug therapy; Z83.3 Family history of diabetes mellitus; Z79.891 Long term (current) use of opiate analgesic
CPT/HCPCS: 36415; 70450; 71045; 80048; 80053; 81001; 82306; 82330; 82550; 82553; 82652; 83690; 83735; 83880; 83970; 84100; 84443; 84484; 85025; 85610; 85730; 93005; 94760; 96361; 96365; 96366; 96375; 96376; 99285

== ENCOUNTER 2018-12-20 11:39 | Inpatient (IN) | payer OTHER ==
[2018-12-20 12:02] LABS: Glucose,Whole Blood 47 mg/dL (75-99)
[2018-12-20] MEDS ORDERED: SODIUM CHLORIDE 0.9% 1,000 ML IV STA (12:06)
[2018-12-20] MEDS ORDERED: SODIUM CHLORIDE 0.9% 500 ML 500 ML IV STA (12:06)
--- NOTE | 2018-12-20 12:15 | ED ---
General Adult HPI - General Chief complaint: Headache Stated complaint: weakness Time Seen by Provider: 12/20/18 11:40 Source: patient, RN notes reviewed Mode of arrival: wheelchair Limitations: no limitations - History of Present Illness Initial comments: This is a 48-year-old male who presents to the emergency department with past medical history significant for diabetes. Patient comes in today stating that about 2 days ago he started having this heaviness on his neck. Patient states it feels like there is a 50 pound weight on his neck and it is been ongoing since per patient states she's also been a little bit nauseous so he hasn't been eating or drinking and he feels weaker and weaker the last 2 weeks and drinks. Patient states he has no chest pain no palpitations no difficulty breathing no shortness of breath per patient denies any fever chills or cough. Patient states he did vomit once but has not had any diarrhea. Patient denies any abdominal pain. Patient denies headache patient states he does feel slightly lightheaded. Patient denies any numbness or weakness. Patient denies any dysuria hematuria urinary frequency. Patient denies any black or bloody stools. Patient states that he has had this heaviness on his neck in the past and no one can ever figure out what it is it usually lasts a few days subsides. - Related Data Home Medications Medication Instructions Recorded Confirmed Insulin Aspart [NovoLOG Flexpen] See Protocol SQ AC-TID 11/16/16 12/20/18 Insulin Degludec [Tresiba 62 unit SQ HS 11/16/16 12/20/18 Flextouch U-200] Acetaminophen [Tylenol Extra 500 mg PO TID PRN 12/20/18 12/20/18 Strength] Lisinopril 40 mg PO DAILY 12/20/18 12/20/18 Omeprazole 40 mg PO DAILY 12/20/18 12/20/18 Allergies Allergy/AdvReac Type Severity Reaction Status Date / Time No Known Allergies Allergy Verified 12/20/18 12:31 Review of Systems ROS Statement: Those systems with pertinent positive or pertinent negative responses have been documented in the HPI. ROS Other: All systems not noted in ROS Statement are negative. Past Medical History Past Medical History: Diabetes Mellitus, GERD/Reflux, Renal Disease Additional Past Medical History / Comment(s): IDDM type II, diabetic neuropathy bilateral feet, DKA, renal insufficiency, hypercalemia, past perianal abscess/fistula with surgery, BPH/urinary retention with surgery, UTI. History of Any Multi-Drug Resistant Organisms: None Reported Past Surgical History: No Surgical Hx Reported Additional Past Surgical History / Comment(s): 08/2014 cystoscopy with TURP, rectal exam/I&D/fistulotomy. Past Anesthesia/Blood Transfusion Reactions: No Reported Reaction Past Psychological History: No Psychological Hx Reported Smoking Status: Current every day smoker Past Alcohol Use History: None Reported Past Drug Use History: None Reported - Past Family History Mother Family Medical History: Diabetes Mellitus Additional Family Medical History / Comment(s): mother is Father Family Medical History: No Reported History Additional Family Medical History / Comment(s): Father is healthy. General Exam - General Exam Comments Initial Comments: GENERAL: Patient is well-developed and well-nourished. Patient is nontoxic and well- hydrated and is in mild distress. ENT: Neck is soft and supple. No significant lymphadenopathy is noted. Oropharynx is clear. Moist mucous membranes. Neck has full range of motion without eliciting any pain. EYES: The sclera were anicteric and conjunctiva were pink and moist. Extraocular movements were intact and pupils were equal round and reactive to light. Eyelids were unremarkable. PULMONARY: Unlabored respirations. Good breath sounds bilaterally. No audible rales rhonchi or wheezing was noted. CARDIOVASCULAR: Patient is a regular rate and rhythm no murmurs are heard ABDOMEN: Soft and nontender with normal bowel sounds. No palpable organomegaly was noted. There is no palpable pulsatile mass. SKIN: Skin is clear with no lesions or rashes and otherwise unremarkable. NEUROLOGIC: Patient is alert and oriented x3. Cranial nerves II through XII are grossly intact. Motor and sensory are also intact. Normal speech, volume and content. Symmetrical smile. MUSCULOSKELETAL: Normal extremities with adequate strength and full range of motion. No lower extremity swelling or edema. No calf tenderness. LYMPHATICS: No significant lymphadenopathy is noted PSYCHIATRIC: Normal psychiatric evaluation. Limitations: no limitations Course Vital Signs 12/20/18 12/20/18 12/20/18 11:40 11:53 12:00 Temperature 97.8 F Pulse Rate 116 H 107 H 106 H Respiratory 26 H 18 18 Rate Blood Pressure 96/66 88/45 O2 Sat by Pulse 100 98 98 Oximetry 12/20/18 12/20/18 12/20/18 12:30 13:00 13:12 Temperature Pulse Rate 100 100 100 Respiratory 18 16 18 Rate Blood Pressure 116/75 117/70 121/77 O2 Sat by Pulse 100 98 99 Oximetry Medical Decision Making - Medical Decision Making Patient's glucose was 45 on arrival we gave him 1 amp of D50. EKG showed sinus tachycardia at 111 bpm SC interval is 142 QRS is 92 QT interval 318 QTC is 432. Patient's EKG shows no ST segment elevation or depression or T wave abnormalities are noted. Chest x-ray shows no acute abnormality. Patient's creatinine is above 8. I spoke with . she wants the patient admitted admitted the patient and I wrote admitting orders I consult nephrology. The urinalysis was attempted but he was only able to give us a couple of drops which weren't enough to do a urinalysis - Lab Data Result diagrams: 12/20/18 11:57 12/20/18 11:57 Lab Results 12/20/18 12/20/18 12/20/18 Range/Units 11:52 11:57 11:57 WBC 14.4 H (3.8-10.6) k/uL RBC 5.59 (4.30-5.90) m/uL Hgb 15.8 (13.0-17.5) gm/dL Hct 46.5 (39.0-53.0) % MCV 83.3 (80.0-100.0) fL MCH 28.4 (25.0-35.0) pg MCHC 34.0 (31.0-37.0) g/dL RDW 14.8 (11.5-15.5) % Plt Count 389 (150-450) k/uL Neutrophils % 74 % Lymphocytes % 15 % Monocytes % 8 % Eosinophils % 1 % Basophils % 0 % Neutrophils # 10.7 H (1.3-7.7) k/uL Lymphocytes # 2.2 (1.0-4.8) k/uL Monocytes # 1.1 H (0-1.0) k/uL Eosinophils # 0.1 (0-0.7) k/uL Basophils # 0.1 (0-0.2) k/uL PT (9.0-12.0) sec INR (<1.2) APTT (22.0-30.0) sec D-Dimer (<0.60) mg/L FEU Sodium 138 (137-145) mmol/L Potassium 5.6 H (3.5-5.1) mmol/L Chloride 101 (98-107) mmol/L Carbon Dioxide 21 L (22-30) mmol/L Anion Gap 16 mmol/L BUN 67 H (9-20) mg/dL Creatinine 8.62 H* (0.66-1.25) mg/dL Est GFR (CKD-EPI)AfAm 8 (>60 ml/min/1.73 sqM) Est GFR (CKD-EPI)NonAf 7 (>60 ml/min/1.73 sqM) Glucose 45 L* (74-99) mg/dL POC Glucose (mg/dL) 47 L (75-99) mg/dL POC Glu Fire Investigation Manager ID Francisco Rojas Plasma Lactic Acid Jcarlos (0.7-2.0) mmol/L Calcium 11.4 H (8.4-10.2) mg/dL Magnesium 1.7 (1.6-2.3) mg/dL Total Bilirubin 0.6 (0.2-1.3) mg/dL AST 16 L (17-59) U/L ALT 11 L (21-72) U/L Alkaline Phosphatase 160 H (38-126) U/L Troponin I (0.000-0.034) ng/mL NT-Pro-B Natriuret Pep pg/mL Total Protein 8.2 (6.3-8.2) g/dL Albumin 4.7 (3.5-5.0) g/dL 12/20/18 12/20/18 12/20/18 Range/Units 11:57 11:57 11:57 WBC (3.8-10.6) k/uL RBC (4.30-5.90) m/uL Hgb (13.0-17.5) gm/dL Hct (39.0-53.0) % MCV (80.0-100.0) fL MCH (25.0-35.0) pg MCHC (31.0-37.0) g/dL RDW (11.5-15.5) % Plt Count (150-450) k/uL Neutrophils % % Lymphocytes % % Monocytes % % Eosinophils % % Basophils % % Neutrophils # (1.3-7.7) k/uL Lymphocytes # (1.0-4.8) k/uL Monocytes # (0-1.0) k/uL Eosinophils # (0-0.7) k/uL Basophils # (0-0.2) k/uL PT 9.6 (9.0-12.0) sec INR 0.9 (<1.2) APTT 25.2 (22.0-30.0) sec D-Dimer 0.62 H (<0.60) mg/L FEU Sodium (137-145) mmol/L Potassium (3.5-5.1) mmol/L Chloride (98-107) mmol/L Carbon Dioxide (22-30) mmol/L Anion Gap mmol/L BUN (9-20) mg/dL Creatinine (0.66-1.25) mg/dL Est GFR (CKD-EPI)AfAm (>60 ml/min/1.73 sqM) Est GFR (CKD-EPI)NonAf (>60 ml/min/1.73 sqM) Glucose (74-99) mg/dL POC Glucose (mg/dL) (75-99) mg/dL POC Glu Fire Investigation Manager ID Plasma Lactic Acid Jcarlos (0.7-2.0) mmol/L Calcium (8.4-10.2) mg/dL Magnesium (1.6-2.3) mg/dL Total Bilirubin (0.2-1.3) mg/dL AST (17-59) U/L ALT (21-72) U/L Alkaline Phosphatase (38-126) U/L Troponin I <0.012 (0.000-0.034) ng/mL NT-Pro-B Natriuret Pep 82 pg/mL Total Protein (6.3-8.2) g/dL Albumin (3.5-5.0) g/dL 12/20/18 12/20/18 Range/Units 11:57 12:33 WBC (3.8-10.6) k/uL RBC (4.30-5.90) m/uL Hgb (13.0-17.5) gm/dL Hct (39.0-53.0) % MCV (80.0-100.0) fL MCH (25.0-35.0) pg MCHC (31.0-37.0) g/dL RDW (11.5-15.5) % Plt Count (150-450) k/uL Neutrophils % % Lymphocytes % % Monocytes % % Eosinophils % % Basophils % % Neutrophils # (1.3-7.7) k/uL Lymphocytes # (1.0-4.8) k/uL Monocytes # (0-1.0) k/uL Eosinophils # (0-0.7) k/uL Basophils # (0-0.2) k/uL PT (9.0-12.0) sec INR (<1.2) APTT (22.0-30.0) sec D-Dimer (<0.60) mg/L FEU Sodium (137-145) mmol/L Potassium (3.5-5.1) mmol/L Chloride (98-107) mmol/L Carbon Dioxide (22-30) mmol/L Anion Gap mmol/L BUN (9-20) mg/dL Creatinine (0.66-1.25) mg/dL Est GFR (CKD-EPI)AfAm (>60 ml/min/1.73 sqM) Est GFR (CKD-EPI)NonAf (>60 ml/min/1.73 sqM) Glucose (74-99) mg/dL POC Glucose (mg/dL) 153 H (75-99) mg/dL POC Glu Fire Investigation Manager ID Francisco Rojas Plasma Lactic Acid Jcarlos 1.5 (0.7-2.0) mmol/L Calcium (8.4-10.2) mg/dL Magnesium (1.6-2.3) mg/dL Total Bilirubin (0.2-1.3) mg/dL AST (17-59) U/L ALT (21-72) U/L Alkaline Phosphatase (38-126) U/L Troponin I (0.000-0.034) ng/mL NT-Pro-B Natriuret Pep pg/mL Total Protein (6.3-8.2) g/dL Albumin (3.5-5.0) g/dL Disposition Clinical Impression: Generalized weakness, Hypoglycemia, Acute renal failure Disposition: ADMITTED IP TO THIS HOSP Referrals: Cristi Mary MD [Primary Care Provider] - 1-2 days Time of Disposition: 14:11
[2018-12-20 12:36] LABS: Glucose,Whole Blood 153 mg/dL (75-99)
[2018-12-20 12:36] LABS: Basophils # (A) 0.1 k/uL (0-0.2); Basophils % (A) 0 %; Eosinophils # (A) 0.1 k/uL (0-0.7); Eosinophils % (A) 1 %; HCT 46.5 % (39.0-53.0); HGB 15.8 gm/dL (13.0-17.5); Lymphocytes # (A) 2.2 k/uL (1.0-4.8); Lymphocytes % (A) 15 %; MCH 28.4 pg (25.0-35.0); MCV 83.3 fL (80.0-100.0); Mean Platelet Volume 7.6; Monocytes # (A) 1.1 k/uL (0-1.0); Monocytes % (A) 8 %; Neutrophils # (A) 10.7 k/uL (1.3-7.7); Neutrophils % (A) 74 %; Platelet Count 389 k/uL (150-450); RBC 5.59 m/uL (4.30-5.90); RDW 14.8 % (11.5-15.5); WBC 14.4 k/uL (3.8-10.6)
[2018-12-20 12:41] LABS: Albumin 4.7 g/dL (3.5-5.0); Calcium 11.4 mg/dL (8.4-10.2); Magnesium 1.7 mg/dL (1.6-2.3); Potassium 5.6 mmol/L (3.5-5.1); Total Bilirubin 0.6 mg/dL (0.2-1.3); Total Protein 8.2 g/dL (6.3-8.2)
[2018-12-20 12:45] LABS: INR 0.9 (<1.2); Partial Thromboplastin Time 25.2 sec (22.0-30.0); Prothrombin Time 9.6 sec (9.0-12.0)
[2018-12-20] MEDS ORDERED: DEXTROSE 50% SYRINGE 50 ML IVP STA (12:53)
[2018-12-20 12:58] LABS: D-Dimer 0.62 mg/L FEU (<0.60)
--- NOTE | 2018-12-20 13:04 | XR ---
EXAMINATION TYPE: XR chest 2V DATE OF EXAM: 12/20/2018 COMPARISON: Prior chest x-ray 03/23/2018 and chest x-ray 11/21/2011 HISTORY: Difficulty breathing TECHNIQUE: Frontal and lateral views of the chest are obtained. FINDINGS: There is no pleural effusion or pneumothorax seen. The cardiac silhouette size is within normal limits. There are overlying cardiac leads. Linear focus of increased density in the left midl fahad laterally likely reflects atelectasis or scarring. Nodular density left upper lobe measures appro ximately 3 mm between the anterior first and second rib and is stable. The osseous structures are int act. IMPRESSION: Platelike atelectasis or scarring left midlung. Probable old granulomatous disease.
[2018-12-20] MEDS ORDERED: ONDANSETRON 4 MG/2 ML VIAL IVP STA (13:19)
[2018-12-20] MEDS ORDERED: HYDROmorphone 1 MG/ML 1 ML SYRINGE IVP STA (13:19)
[2018-12-20] MEDS ORDERED: SODIUM CHLORIDE 0.9% 1,000 ML IV ONE (14:11)
[2018-12-20 15:11] LABS: Appearance,Urine Cloudy (Clear); Bacteria,Urine Rare /hpf; Bilirubin,Urine 1+ (Negative); Blood,Urine Negative (Negative); Color,Urine Yellow; Glucose,Urine (UA) Negative (Negative); Hyaline Casts,Urine 80 /lpf (0-2); Ketones,Urine Negative (Negative); Leukocyte Esterase,Urine Small (Negative); Mucus,Urine Occasional /hpf; Nitrite,Urine Negative (Negative); PH, Urine 5.5 (5.0-8.0); Protein,Urine 2+ (Negative); RBC,Urine 2 /hpf (0-5); Specific Gravity,Urine 1.018 (1.001-1.035); Sperm,Urine Rare /hpf; Squamous Epithelial Cell,Urine <1 /hpf (0-4); WBC,Urine 6 /hpf (0-5)
[2018-12-20 16:49] LABS: Glucose,Whole Blood 106 mg/dL (75-99)
[2018-12-20 19:54] VITALS: BP 120/62; PULSE 104; RESP 18; TEMP 98.2
[2018-12-20] MEDS ORDERED: HYDROmorphone 0.5 MG/0.5 ML SYRINGE IVP PRN (20:06)
[2018-12-20] MEDS ORDERED: ACETAMINOPHEN TAB 500 MG TAB PO PRN (20:07)
[2018-12-20] MEDS ORDERED: NICOTINE 21MG/24HR PATCH TRANSDERM SCH (20:15)
[2018-12-20] MEDS ORDERED: INSULIN DETEMIR (LEVEMIR) 100 UNIT/ML SYR SQ SCH (21:00)
[2018-12-20] MEDS ORDERED: INSULIN ASPART (NovoLOG) 100 UNIT/ML VIAL SQ SCH (21:00)
[2018-12-21] MEDS ORDERED: PANTOPRAZOLE 40 MG TABLET PO SCH (07:30)
== END 2018-12-20 21:30 | disposition left against medical advice (07) | DRG 684 ==
LOC: EC 11:39 → 3SCARD 14:12
PROVIDERS: ADMIT Family Medicine; ATTEND Family Medicine
DX: N17.9 Acute kidney failure, unspecified (principal); E11.40 Type 2 diabetes mellitus with diabetic neuropathy, unspecified; E11.649 Type 2 diabetes mellitus with hypoglycemia without coma; F17.210 Nicotine dependence, cigarettes, uncomplicated; K21.9 Gastro-esophageal reflux disease without esophagitis; Z79.4 Long term (current) use of insulin; Z83.3 Family history of diabetes mellitus; M54.2 Cervicalgia; Z87.440 Personal history of urinary (tract) infections; N40.1 Benign prostatic hyperplasia with lower urinary tract symptoms; R33.8 Other retention of urine; Z90.79 Acquired absence of other genital organ(s)
CPT/HCPCS: 36415; 71046; 80053; 81001; 83605; 83735; 83880; 84484; 85025; 85379; 85610; 85730; 93005; 96361; 96374; 96375; 99285

== ENCOUNTER 2018-12-21 14:57 | Inpatient (IN) | payer OTHER ==
--- NOTE | 2018-12-21 16:11 | ED ---
Recheck HPI <Smith Belcher - Last Filed: 12/21/18 17:31> - General Source: patient Mode of arrival: ambulatory Limitations: no limitations <Chyna Ayon - Last Filed: 12/21/18 18:31> - General Chief Complaint: Recheck/Abnormal Lab/Rx Stated Complaint: sent by Time Seen by Provider: 12/21/18 15:42 - History of Present Illness Initial Comments: Patient is a 48-year-old male presenting to the emergency Department after he was told by his doctor, Dr. Mary, to return to the ER for treatment for elevated creatinine level. Patient is a diabetic. Patient was here in the ER yesterday, admitted and then left AMA. Patient states he called Dr. Mary who told him he should go back to the ER. Patient states he has been having a heaviness in his neck, nausea on and off for the last week. Patient denies any chest pain, palpitations, difficulty breathing, headache, vomiting, abdominal pain. Patient denies any urinary symptoms at this time. (Chyna Ayon) - Related Data Home Medications Medication Instructions Recorded Confirmed Insulin Aspart [NovoLOG Flexpen] See Protocol SQ AC-TID 11/16/16 12/21/18 Insulin Degludec [Tresiba 62 unit SQ HS 11/16/16 12/21/18 Flextouch U-200] Acetaminophen [Tylenol Extra 500 mg PO TID PRN 12/20/18 12/21/18 Strength] Lisinopril 40 mg PO DAILY@1600 12/20/18 12/21/18 Omeprazole 40 mg PO DAILY 12/20/18 12/21/18 Allergies Allergy/AdvReac Type Severity Reaction Status Date / Time No Known Allergies Allergy Verified 12/21/18 17:56 Review of Systems ROS Other: All systems not noted in ROS Statement are negative. <Smith Belcher - Last Filed: 12/21/18 17:31> ROS Other: All systems not noted in ROS Statement are negative. <Chyna Ayon - Last Filed: 12/21/18 18:31> ROS Statement: Those systems with pertinent positive or pertinent negative responses have been documented in the HPI. Past Medical History Past Medical History: Diabetes Mellitus, GERD/Reflux, Renal Disease Additional Past Medical History / Comment(s): IDDM type II, diabetic neuropathy bilateral feet, DKA, renal insufficiency, hypercalemia, past perianal abscess/fistula with surgery, BPH/urinary retention with surgery, UTI. History of Any Multi-Drug Resistant Organisms: None Reported Past Surgical History: No Surgical Hx Reported Additional Past Surgical History / Comment(s): 08/2014 cystoscopy with TURP, rectal exam/I&D/fistulotomy. Past Anesthesia/Blood Transfusion Reactions: No Reported Reaction Past Psychological History: No Psychological Hx Reported Smoking Status: Current every day smoker Past Alcohol Use History: None Reported Past Drug Use History: None Reported - Past Family History Mother Family Medical History: Diabetes Mellitus Additional Family Medical History / Comment(s): mother is Father Family Medical History: No Reported History Additional Family Medical History / Comment(s): Father is healthy. <Chyna Ayon - Last Filed: 12/21/18 18:31> General Exam Limitations: no limitations <Chyna Ayon - Last Filed: 12/21/18 18:31> - General Exam Comments Initial Comments: GENERAL: Well-appearing, well-nourished and in no acute distress. Patient appears irritated to be back in the ER. HEAD: Atraumatic, normocephalic. EYES: Pupils equal round and reactive to light, extraocular movements intact, sclera anicteric, conjunctiva are normal. ENT: TMs normal, nares patent, oropharynx clear without exudates. Moist mucous membranes. NECK: Normal range of motion, supple without lymphadenopathy or JVD. LUNGS: Breath sounds clear to auscultation bilaterally and equal. No wheezes rales or rhonchi. HEART: Regular rate and rhythm without murmurs, rubs or gallops. ABDOMEN: Soft, nontender, normoactive bowel sounds. No guarding, no rebound. No masses appreciated. : Deferred EXTREMITIES: Normal range of motion, no pitting or edema. No clubbing or cyanosis. NEUROLOGICAL: Cranial nerves II through XII grossly intact. Normal speech, normal gait. PSYCH: Normal mood, normal affect. SKIN: Warm, Dry, normal turgor, no rashes or lesions noted. (Chyna Aoyn) Course <Smith Belcher - Last Filed: 12/21/18 17:31> Vital Signs 12/21/18 12/21/18 15:37 17:00 Temperature 98.8 F Pulse Rate 109 H 96 Respiratory 22 18 Rate Blood Pressure 144/87 132/58 O2 Sat by Pulse 97 97 Oximetry - Reevaluation(s) Reevaluation #1: 12/21/18 17:31 Patient present: Rohan did evaluate this case I did discuss case also with Dr. Mary the patient will be admitted consultation to nephrology for acute renal failure. I do agree with the assessment and plan (Smith Belcher) Medical Decision Making - Lab Data Result diagrams: 12/21/18 14:30 12/21/18 14:30 <Smith Belcher - Last Filed: 12/21/18 17:31> - Lab Data Result diagrams: 12/21/18 14:30 12/21/18 14:30 <Chyna Ayon - Last Filed: 12/21/18 18:31> - Medical Decision Making Patient is a 48-year-old male with complaints of neck heaviness and feeling fatigued for the last few days. Patient was seen here in the ER yesterday evaluated and was found to have a creatinine of 9. Patient was admitted to the hospital but then left AMA. Patient talked to Dr. Mary today who convinced the patient to return to the hospital for admission. Patient does not have any complaints today. CBC is within normal limits. Potassium is 5.5, BUN 56, cre atinine 3.08, magnesium is 1.5. UA is within normal limits, negative drug screen. Case discussed with Dr. Belcher. Patient will be admitted for QUIQUE, hypo- magnesium with nephrology consult. (Chyna Ayon) - Lab Data Lab Results 12/21/18 12/21/18 12/21/18 Range/Units 14:30 14:30 14:30 WBC 8.8 (3.8-10.6) k/uL RBC 4.71 (4.30-5.90) m/uL Hgb 13.7 (13.0-17.5) gm/dL Hct 39.7 (39.0-53.0) % MCV 84.3 (80.0-100.0) fL MCH 29.0 (25.0-35.0) pg MCHC 34.4 (31.0-37.0) g/dL RDW 14.9 (11.5-15.5) % Plt Count 270 (150-450) k/uL Neutrophils % 72 % Lymphocytes % 17 % Monocytes % 6 % Eosinophils % 2 % Basophils % 1 % Neutrophils # 6.3 (1.3-7.7) k/uL Lymphocytes # 1.5 (1.0-4.8) k/uL Monocytes # 0.5 (0-1.0) k/uL Eosinophils # 0.2 (0-0.7) k/uL Basophils # 0.1 (0-0.2) k/uL Sodium 140 (137-145) mmol/L Potassium 5.5 H (3.5-5.1) mmol/L Chloride 109 H (98-107) mmol/L Carbon Dioxide 22 (22-30) mmol/L Anion Gap 9 mmol/L BUN 56 H (9-20) mg/dL Creatinine 3.08 H (0.66-1.25) mg/dL Est GFR (CKD-EPI)AfAm 26 (>60 ml/min/1.73 sqM) Est GFR (CKD-EPI)NonAf 23 (>60 ml/min/1.73 sqM) Glucose 106 H (74-99) mg/dL Plasma Lactic Acid Jcarlos 0.7 (0.7-2.0) mmol/L Calcium 10.0 (8.4-10.2) mg/dL Magnesium 1.5 L (1.6-2.3) mg/dL Total Bilirubin 0.3 (0.2-1.3) mg/dL AST 14 L (17-59) U/L ALT 16 L (21-72) U/L Alkaline Phosphatase 131 H (38-126) U/L Total Protein 7.0 (6.3-8.2) g/dL Albumin 3.9 (3.5-5.0) g/dL Urine Color Urine Appearance (Clear) Urine pH (5.0-8.0) Ur Specific [place] (1.001-1.035) Urine Protein (Negative) Urine Glucose (UA) (Negative) Urine Ketones (Negative) Urine Blood (Negative) Urine Nitrite (Negative) Urine Bilirubin (Negative) Urine Urobilinogen (<2.0) mg/dL Ur Leukocyte Esterase (Negative) Urine Opiates Screen (NotDetected) Ur Oxycodone Screen (NotDetected) Urine Methadone Screen (NotDetected) Ur Propoxyphene Screen (NotDetected) Ur Barbiturates Screen (NotDetected) U Tricyclic Antidepress (NotDetected) Ur Phencyclidine Scrn (NotDetected) Ur Amphetamines Screen (NotDetected) U Methamphetamines Scrn (NotDetected) U Benzodiazepines Scrn (NotDetected) Urine Cocaine Screen (NotDetected) U Marijuana (THC) Screen (NotDetected) Serum Alcohol <10 mg/dL 12/21/18 Range/Units 14:30 WBC (3.8-10.6) k/uL RBC (4.30-5.90) m/uL Hgb (13.0-17.5) gm/dL Hct (39.0-53.0) % MCV (80.0-100.0) fL MCH (25.0-35.0) pg MCHC (31.0-37.0) g/dL RDW (11.5-15.5) % Plt Count (150-450) k/uL Neutrophils % % Lymphocytes % % Monocytes % % Eosinophils % % Basophils % % Neutrophils # (1.3-7.7) k/uL Lymphocytes # (1.0-4.8) k/uL Monocytes # (0-1.0) k/uL Eosinophils # (0-0.7) k/uL Basophils # (0-0.2) k/uL Sodium (137-145) mmol/L Potassium (3.5-5.1) mmol/L Chloride (98-107) mmol/L Carbon Dioxide (22-30) mmol/L Anion Gap mmol/L BUN (9-20) mg/dL Creatinine (0.66-1.25) mg/dL Est GFR (CKD-EPI)AfAm (>60 ml/min/1.73 sqM) Est GFR (CKD-EPI)NonAf (>60 ml/min/1.73 sqM) Glucose (74-99) mg/dL Plasma Lactic Acid Jcarlos (0.7-2.0) mmol/L Calcium (8.4-10.2) mg/dL Magnesium (1.6-2.3) mg/dL Total Bilirubin (0.2-1.3) mg/dL AST (17-59) U/L ALT (21-72) U/L Alkaline Phosphatase (38-126) U/L Total Protein (6.3-8.2) g/dL Albumin (3.5-5.0) g/dL Urine Color Light Yellow Urine Appearance Clear (Clear) Urine pH 5.5 (5.0-8.0) Ur Specific [place] 1.009 (1.001-1.035) Urine Protein Trace H (Negative) Urine Glucose (UA) Negative (Negative) Urine Ketones Negative (Negative) Urine Blood Negative (Negative) Urine Nitrite Negative (Negative) Urine Bilirubin Negative (Negative) Urine Urobilinogen <2.0 (<2.0) mg/dL Ur Leukocyte Esterase Negative (Negative) Urine Opiates Screen Not Detected (NotDetected) Ur Oxycodone Screen Not Detected (NotDetected) Urine Methadone Screen Not Detected (NotDetected) Ur Propoxyphene Screen Not Detected (NotDetected) Ur Barbiturates Screen Not Detected (NotDetected) U Tricyclic Antidepress Not Detected (NotDetected) Ur Phencyclidine Scrn Not Detected (NotDetected) Ur Amphetamines Screen Not Detected (NotDetected) U Methamphetamines Scrn Not Detected (NotDetected) U Benzodiazepines Scrn Not Detected (NotDetected) Urine Cocaine Screen Not Detected (NotDetected) U Marijuana (THC) Screen Not Detected (NotDetected) Serum Alcohol mg/dL Disposition <Smith Belcher - Last Filed: 12/21/18 17:31> Is patient prescribed a controlled substance at d/c from ED?: No Decision Date: 12/21/18 Decision Time: 17:00 <Chyna Ayon - Last Filed: 12/21/18 18:31> Clinical Impression: Acute kidney injury, Hypomagnesemia Disposition: ADMITTED IP TO THIS [facility] Condition: Good
[2018-12-21 16:50] LABS: Appearance,Urine Clear (Clear); Bilirubin,Urine Negative (Negative); Blood,Urine Negative (Negative); Color,Urine Light Yellow; Glucose,Urine (UA) Negative (Negative); Ketones,Urine Negative (Negative); Leukocyte Esterase,Urine Negative (Negative); Nitrite,Urine Negative (Negative); PH, Urine 5.5 (5.0-8.0); Protein,Urine Trace (Negative); Specific Gravity,Urine 1.009 (1.001-1.035); Urobilinogen,Urine <2.0 mg/dL (<2.0)
[2018-12-21 16:54] LABS: Basophils # (A) 0.1 k/uL (0-0.2); Basophils % (A) 1 %; Eosinophils # (A) 0.2 k/uL (0-0.7); Eosinophils % (A) 2 %; HCT 39.7 % (39.0-53.0); HGB 13.7 gm/dL (13.0-17.5); Lymphocytes # (A) 1.5 k/uL (1.0-4.8); Lymphocytes % (A) 17 %; MCHC 34.4 g/dL (31.0-37.0); MCV 84.3 fL (80.0-100.0); Mean Platelet Volume 7.3; Monocytes # (A) 0.5 k/uL (0-1.0); Monocytes % (A) 6 %; Neutrophils # (A) 6.3 k/uL (1.3-7.7); Neutrophils % (A) 72 %; Platelet Count 270 k/uL (150-450); RBC 4.71 m/uL (4.30-5.90); RDW 14.9 % (11.5-15.5); WBC 8.8 k/uL (3.8-10.6)
[2018-12-21 16:58] LABS: ALT 16 U/L (21-72); AST 14 U/L (17-59); African American GFR (CKD) 26 (>60 ml/min/1.73 sqM); Albumin 3.9 g/dL (3.5-5.0); Alcohol <10 mg/dL; Alkaline Phosphatase 131 U/L (38-126); Anion Gap 9 mmol/L; Blood Urea Nitrogen 56 mg/dL (9-20); Carbon Dioxide 22 mmol/L (22-30); Chloride 109 mmol/L (98-107); Glucose 106 mg/dL (74-99); Magnesium 1.5 mg/dL (1.6-2.3); Non-African American GFR(CKD) 23 (>60 ml/min/1.73 sqM); Potassium 5.5 mmol/L (3.5-5.1); Sodium 140 mmol/L (137-145); Total Bilirubin 0.3 mg/dL (0.2-1.3)
[2018-12-21 17:03] LABS: Amphetamine Screen,Urine Not Detected (NotDetected); Barbiturate Screen,Urine Not Detected (NotDetected); Benzodiazepines Screen,Urine Not Detected (NotDetected); Cocaine Screen,Urine Not Detected (NotDetected); Methadone Screen, Urine Not Detected (NotDetected); Opiate Screen,Urine Not Detected (NotDetected); Oxycodone Screen, Urine Not Detected (NotDetected); Phencyclidine Screen,Urine Not Detected (NotDetected); Tricyclic Antidepressant,Urine Not Detected (NotDetected); Urn Cannabinoid Scrn Not Detected (NotDetected)
[2018-12-21] MEDS ORDERED: traMADol 50 MG TAB PO PRN (17:15)
[2018-12-21] MEDS ORDERED: ONDANSETRON 4 MG/2 ML VIAL IVP PRN (17:15)
[2018-12-21] MEDS ORDERED: ACETAMINOPHEN TAB 325 MG TAB PO PRN (17:15)
[2018-12-21] MEDS ORDERED: NALOXONE 0.4 MG/ML 1 ML VIAL IV PRN (17:15)
[2018-12-21] MEDS ORDERED: SODIUM CHLORIDE 0.9% 1,000 ML IV SCH (17:15)
[2018-12-21 20:59] LABS: Glucose,Whole Blood 43 mg/dL (75-99)
[2018-12-21 21:38] LABS: Glucose,Whole Blood 64 mg/dL (75-99)
[2018-12-21 21:48] LABS: Glucose,Whole Blood 63 mg/dL (75-99)
[2018-12-21 22:11] LABS: Glucose,Whole Blood 92 mg/dL (75-99)
[2018-12-22 06:07] VITALS: BMI 34.0
[2018-12-22 07:28] LABS: Glucose,Whole Blood 298 mg/dL (75-99)
[2018-12-22] MEDS: INSULIN ASPART (NovoLOG) 100 UNIT/ML VIAL SQ SCH ×2 (07:53→12:35)
[2018-12-22 09:03] VITALS: BP 154/84; PULSE 85; RESP 14; TEMP 98.3
[2018-12-22 10:14] LABS: Calcium 9.5 mg/dL (8.4-10.2); Magnesium 1.5 mg/dL (1.6-2.3); Potassium 5.8 mmol/L (3.5-5.1)
[2018-12-22] MEDS ORDERED: INSULIN REGULAR 100 UNIT/ML VIAL IV ONE (10:23)
[2018-12-22] MEDS ORDERED: DEXTROSE 10 % IN WATER 250 ML BAG IV STA (10:23)
[2018-12-22] MEDS ORDERED: MAGNESIUM SULFATE-D5W PMX 1 GM in DEXTROSE/WATER 1 100ML.BAG IVPB SCH (11:15)
[2018-12-22] MEDS ORDERED: amLODIPine 5 MG TAB PO SCH (11:15)
[2018-12-22] MEDS ORDERED: SODIUM CHLORIDE 0.9% 1,000 ML IV SCH (11:15)
--- NOTE | 2018-12-22 11:17 | P.NPCON ---
History of Present Illness - Reason for Consult acute renal failure, chronic renal failure - History of Present Illness Reason for consultation: Acute kidney injury on chronic kidney disease History of present illness: Patient is a 48-year-old male seen in renal consultation for acute kidney injury on chronic kidney disease. Patient has chronic kidney disease stage III with baseline creatinine recently near 1.5. Patient had blood work an outpatient on December 20 and his creatinine was 8.62. Patient came to the hospital but left AGAINST MEDICAL ADVICE. Patient then spoke with his PCP and was advised to come back to the hospital due to acute renal failure. When he came to the hospital yesterday creatinine was 3.08 and is down to 1.73 today. He is currently not on IV fluids. Patient states the last few days he was not taking his anti-reflux medications and was not able to eat and drink much. Furthermore he was having several episodes of dry heaving. Currently the patient is doing well. He's eating and drinking well. Hemodynamically stable. Good urine output. No hematuria or dysuria. Denies use of nonsteroidals. He does have history of diabetes mellitus. He was also taking lisinopril at home which is currently held. Vital signs are stable. General: The patient appeared well nourished and normally developed. HEENT: Head exam is unremarkable. Neck is without jugular venous distension. LUNGS: Lungs are clear to auscultation and percussion. Breath sounds decreased. HEART: Rate and Rhythm are regular. First and second heart sounds normal. No murmurs, rubs or gallops. ABDOMEN: Abdominal exam reveals normal bowel sounds. Non-tender and non- distended. No evidence of peritonitis. EXTREMITITES: No clubbing, cyanosis, or edema. Past Medical History Past Medical History: Diabetes Mellitus, GERD/Reflux, Renal Disease Additional Past Medical History / Comment(s): IDDM type II, diabetic neuropathy bilateral feet, DKA, renal insufficiency, hypercalemia, past perianal abscess/fistula with surgery, BPH/urinary retention with surgery, UTI. History of Any Multi-Drug Resistant Organisms: None Reported Past Surgical History: No Surgical Hx Reported Additional Past Surgical History / Comment(s): 08/2014 cystoscopy with TURP, rectal exam/I&D/fistulotomy. Past Anesthesia/Blood Transfusion Reactions: No Reported Reaction Past Psychological History: No Psychological Hx Reported Additional Psychological History / Comment(s): Pt lives alone. He works for [employer]. He states he does not drive and getting to appointments can be difficult. Smoking Status: Current every day smoker Past Alcohol Use History: None Reported Additional Past Alcohol Use History / Comment(s): Pt started smoking about 1989 and is a 2 ppd smoker. Past Drug Use History: None Reported - Past Family History Mother Family Medical History: Diabetes Mellitus Additional Family Medical History / Comment(s): mother is Father Family Medical History: No Reported History Additional Family Medical History / Comment(s): Father is healthy. Medications and Allergies Home Medications Medication Instructions Recorded Confirmed Type Insulin Aspart [NovoLOG Flexpen] See Protocol SQ AC-TID 11/16/16 12/21/18 History Insulin Degludec [Tresiba 62 unit SQ HS 11/16/16 12/21/18 History Flextouch U-200] Acetaminophen [Tylenol Extra 500 mg PO TID PRN 12/20/18 12/21/18 History Strength] Lisinopril 40 mg PO DAILY@1600 12/20/18 12/21/18 History Omeprazole 40 mg PO DAILY 12/20/18 12/21/18 History Allergies Allergy/AdvReac Type Severity Reaction Status Date / Time No Known Allergies Allergy Verified 12/21/18 17:56 Physical Exam Vitals: Vital Signs Temp Pulse Pulse Pulse Resp BP BP 12/22/18 07:00 98.3 F 85 14 154/84 12/22/18 01:10 97.9 F 82 17 139/80 12/21/18 19:30 97.9 F 88 18 104/81 12/21/18 18:28 98.1 F 94 18 143/92 12/21/18 17:00 96 18 132/58 12/21/18 15:37 98.8 F 109 H 22 144/87 Pulse Ox 12/22/18 07:00 98 12/22/18 01:10 96 12/21/18 19:30 98 12/21/18 18:28 99 12/21/18 17:00 97 12/21/18 15:37 97 Intake and Output 12/21/18 12/22/18 12/22/18 22:59 06:59 14:59 Intake Total 220 10 296 Balance 220 10 296 Intake: Oral 220 10 296 Other: Weight 104.326 kg Results - Lab Results Most recent lab results Calcium 9.5 mg/dL (8.4-10.2) 12/22/18 08:58 Magnesium 1.5 mg/dL (1.6-2.3) L 12/22/18 08:58 12/21/18 14:30 12/22/18 08:58 Assessment and Plan Plan: Assessment: 1. Acute kidney injury mostly prerenal secondary to intravascular volume depletion from vomiting and further worsened with the use of lisinopril. Creatinine was over 8 as of December 20 and is down to 1.73 today. UA reveals trace proteinuria. 2. Chronic kidney disease stage III with baseline creatinine near 1.5 most likely secondary to diabetic kidney disease. 3. Hyperkalemia secondary to acute kidney injury and lisinopril. Hyperglycemia is also contributor factor. 4. Hypomagnesemia from poor oral intake. 5. Insulin-dependent diabetes mellitus. 6. Hypertension with chronic kidney disease. Controlled. Plan: Start normal saline at 75 mL an hour. Tight blood sugar control. 10 units of IV insulin with an amp of D50 now. Low potassium diet. Repeat potassium level this afternoon. Replace magnesium. 2 g IV today. Continue to hold lisinopril. Add amlodipine 5 mg daily. Thank you for the consultation. I will continue to follow the patient with you during his hospital stay.
[2018-12-22 11:37] LABS: Glucose,Whole Blood 84 mg/dL (75-99)
[2018-12-22] MEDS ORDERED: INSULIN ASPART (NovoLOG) 100 UNIT/ML VIAL SQ SCH (12:30)
[2018-12-22] MEDS ORDERED: SODIUM POLYSTYRENE SULFONATE 15 GM/60 ML BOTTLE PO STA (13:04)
--- NOTE | 2018-12-22 20:04 | HP ---
HISTORY AND PHYSICAL COMBINATION HISTORY AND PHYSICAL AND DISCHARGE SUMMARY: DATE OF SERVICE: 12/22/2018 I am covering for Dr. Mary. CHIEF COMPLAINTS: 1. Abnormal labs. 2. History of not feeling well. HISTORY OF PRESENT ILLNESS: This 48-year-old gentleman with a past medical history of multiple medical problems including diabetes, GERD, history of renal disease, history of diabetic peripheral neuropathy, history of perianal abscess, being followed by Dr. Mary in the outpatient, not feeling well. The patient apparently had creatinine estimation which was high. Dr. Mary recommend the patient to come to the [facility] and creatinine is found to be 3.08. The patient was started on IV hydration. Creatinine improved to 1.73. Dr. Silverman saw the patient. Magnesium is 1.5, potassium 5.8. The patient is being evaluated and the patient is extremely keen on going home. Dr. Silverman recommended the patient to be discharged home after appropriate treatment of hyperkalemia as well as hypomagnesemia. There is no history of fever, rigors or chills. No history of headache, loss of consciousness or seizures. No chest pain, palpitations, hematochezia or melena at this time. PAST MEDICAL HISTORY: Diabetes, GERD, history of diabetes type 2. MEDICATIONS: Prior to admission include: 1. Omeprazole 40 mg daily. 2. Insulin 62 units subcu q.h.s. 3. Tylenol p.r.n. 4. Apresoline 50 mg b.i.d. 5. Norvasc 10 mg p.o. daily. ALLERGIES: None. FAMILY HISTORY: History of diabetes mellitus in the family. SOCIAL HISTORY: History of smoking. No history of alcohol intake. REVIEW OF SYSTEMS: ENT: No diminished vision. No diminished hearing. CARDIOVASCULAR: No angina or palpitations. RESPIRATIONS: No cough. No hemoptysis. GI no nausea or vomiting. : As mentioned earlier. NERVOUS SYSTEM: No numbness or weakness. ALLERGY/IMMUNOLOGY: No asthma or hayfever. MUSCULOSKELETAL as mentioned earlier. HEMATOLOGY/ONCOLOGY: No history of anemia. ENDOCRINE: No history of diabetes or hypothyroidism. CONSTITUTIONAL: As mentioned earlier. DERMATOLOGY negative. RHEUMATOLOGY: Negative. PSYCHIATRIC: As mentioned earlier. PHYSICAL EXAMINATION: Alert and oriented x3. Pulse is 82, blood pressure 139/80, respirations 17, temperature 97.9, pulse ox 98% on room air. HEENT: Conjunctivae normal. Oral mucosa moist. NECK is no jugular venous distention. No carotid bruit. No lymph node enlargement. CARDIOVASCULAR systems: S1, S2. RESPIRATION: Breath sounds diminished in the bases. Bilateral scattered rhonchi and crackles. ABDOMEN: Soft, nontender. No mass palpable. LEGS: No edema. No swelling. NERVOUS SYSTEM: Higher functions as mentioned earlier. Moves all four limbs. No focal motor or sensory deficits. LYMPHATICS: No lymph nodes palpable in the neck, axillae or groin. SKIN: No ulcer, rash or bleeding. JOINTS: No active deforming arthropathy. LABS: CBC within normal limits. Sodium 140, potassium 5.5 and 5.8, creatinine 3.08 and 1.73. Magnesium 1.5. ASSESSMENT: 1. Acute on chronic renal failure. 2. Chronic kidney disease stage III. 3. Diabetes type 2. 4. History of gastroesophageal reflux disease. 5. History of diabetic peripheral neuropathy. 6. History of diabetic ketoacidosis. 7. History of renal insufficiency. 8. History of nicotine dependence. RECOMMENDATIONS AND DISCUSSION: In this 48-year-old gentleman who presented with multiple medical issues, at this time, the creatinine has improved significantly but however the patient still hyperkalemic. Treated with insulin glucose regimen by Dr. Silverman. Kayexalate is also recommended. Magnesium is being replaced. The patient is extremely keen on going home. As mentioned earlier, I would recommend the patient to be discharged in stable condition with guarded prognosis. The patient understands and agrees. The following are the medication and instructions recommended: 1. The diet is renal low-potassium. 2. Hold lisinopril for now because of hyperkalemia. DISCHARGE MEDICATIONS: 1. NovoLog FlexPen a.c. t.i.d. 2. Omeprazole 40 mg p.o. daily. 3. Insulin Degludec that is Tresiba 60 units subcu q.h.s. 4. Tylenol p.r.n. 5. Apresoline 50 mg p.o. t.i.d. 6. Norvasc 10 mg p.o. daily. Follow up with Nephrology as recommended. Once again, the patient will be discharged in stable condition with guarded prognosis. MMODL / IJN: [id number] /
== END 2018-12-22 14:38 | disposition home or self-care (01) | DRG 684 ==
LOC: EC 14:57 → 4SSUR 17:15
PROVIDERS: ADMIT Family Medicine; ATTEND Family Medicine
DX: N17.9 Acute kidney failure, unspecified (principal); N18.3 Chronic kidney disease, stage 3 (moderate); E11.22 Type 2 diabetes mellitus with diabetic chronic kidney disease; E11.42 Type 2 diabetes mellitus with diabetic polyneuropathy; E11.65 Type 2 diabetes mellitus with hyperglycemia; E83.42 Hypomagnesemia; E87.5 Hyperkalemia; F17.200 Nicotine dependence, unspecified, uncomplicated; N40.1 Benign prostatic hyperplasia with lower urinary tract symptoms; R33.8 Other retention of urine; I12.9 Hypertensive chronic kidney disease with stage 1 through stage 4 chronic kidney disease, or unspecified chronic kidney disease; K21.9 Gastro-esophageal reflux disease without esophagitis; E86.9 Volume depletion, unspecified; T46.4X5A Adverse effect of angiotensin-converting-enzyme inhibitors, initial encounter; Z79.4 Long term (current) use of insulin; Z79.899 Other long term (current) drug therapy; Z87.440 Personal history of urinary (tract) infections; Z83.3 Family history of diabetes mellitus
CPT/HCPCS: 36415; 80048; 80053; 80306; 80320; 81003; 83605; 83735; 85025; 99284

== ENCOUNTER 2019-01-29 11:20 | Emergency (ER) | payer OTHER ==
[2019-01-29 11:30] VITALS: RESP 18
[2019-01-29] MEDS ORDERED: ACET/COD 300 MG/30 MG STARTER PACK 6 TAB BTL PO STA (11:43)
[2019-01-29] MEDS ORDERED: HYDROcodone/APAP 7.5-325MG 1 EACH TAB PO ONE (11:43)
--- NOTE | 2019-01-29 11:47 | ED ---
Skin/Abscess/FB HPI - General Chief complaint: Skin/Abscess/Foreign Body Stated complaint: painful cyst on back Time Seen by Provider: 01/29/19 11:31 Source: patient, RN notes reviewed Mode of arrival: ambulatory Limitations: no limitations - History of Present Illness Initial comments: 47-year-old male presents emergency Department chief complaint of abscess on his right shoulder region. Patient states that started last 3-4 days. Patient states is painful. He's had recent happened in the past. Patient reports no fevers or chills. Patient states that he hasn't quite a bit of discomfort at this time he denies any shortness of breath, headache or dizziness denies any night sweats. Patient states he isn't known diabetic but his blood sugars have been well-controlled. - Related Data Home Medications Medication Instructions Recorded Confirmed Insulin Aspart [NovoLOG Flexpen] See Protocol SQ AC-TID 11/16/16 12/21/18 Insulin Degludec [Tresiba 62 unit SQ HS 11/16/16 12/21/18 Flextouch U-200] Omeprazole 40 mg PO DAILY 12/20/18 12/21/18 Lisinopril 40 mg PO HS 01/29/19 01/29/19 hydrALAZINE HCL [Apresoline] 50 mg PO BID 01/29/19 01/29/19 Previous Rx's Medication Instructions Recorded Cephalexin [Keflex] 500 mg PO Q6HR #40 cap 01/29/19 Sulfamethox-Tmp 800-160Mg [Bactrim 1 each PO Q12HR #20 tab 01/29/19 Ds] Allergies Allergy/AdvReac Type Severity Reaction Status Date / Time No Known Allergies Allergy Verified 01/29/19 11:30 Review of Systems ROS Statement: Those systems with pertinent positive or pertinent negative responses have been documented in the HPI. ROS Other: All systems not noted in ROS Statement are negative. Past Medical History Past Medical History: Diabetes Mellitus, GERD/Reflux, Renal Disease Additional Past Medical History / Comment(s): IDDM type II, diabetic neuropathy bilateral feet, DKA, renal insufficiency, hypercalemia, past perianal abscess/fistula with surgery, BPH/urinary retention with surgery, UTI. History of Any Multi-Drug Resistant Organisms: None Reported Past Surgical History: No Surgical Hx Reported Additional Past Surgical History / Comment(s): 08/2014 cystoscopy with TURP, rectal exam/I&D/fistulotomy. Past Anesthesia/Blood Transfusion Reactions: No Reported Reaction Past Psychological History: No Psychological Hx Reported Smoking Status: Current every day smoker Past Alcohol Use History: None Reported Past Drug Use History: None Reported - Past Family History Mother Family Medical History: Diabetes Mellitus Additional Family Medical History / Comment(s): mother is Father Family Medical History: No Reported History Additional Family Medical History / Comment(s): Father is healthy. General Exam Limitations: no limitations General appearance: alert, in no apparent distress Head exam: Present: atraumatic, normocephalic, normal inspection Eye exam: Present: normal appearance, PERRL, EOMI. Absent: scleral icterus, conjunctival injection, periorbital swelling Respiratory exam: Present: normal lung sounds bilaterally. Absent: respiratory distress, wheezes, rales, rhonchi, stridor Cardiovascular Exam: Present: regular rate (Patient's heart rate was elevated on triage though patient improved on exam.), normal rhythm, normal heart sounds. Absent: systolic murmur, diastolic murmur, rubs, gallop, clicks GI/Abdominal exam: Present: soft, normal bowel sounds. Absent: distended, tenderness, guarding, rebound, rigid Skin exam: Present: other (Right scapular region there is 3 cm of erythema with a centralized lesion, tenderness with palpation nonfluctuant just inferior and medially to this there is irregular bordered black purplish skin lesion which is slightly raised) Course Vital Signs 01/29/19 01/29/19 11:28 11:52 Temperature 99.2 F 99.0 F Pulse Rate 119 H 104 H Respiratory 18 18 Rate Blood Pressure 93/66 115/68 O2 Sat by Pulse 98 99 Oximetry Medical Decision Making - Medical Decision Making 48-year-old male presented for upper shoulder abscess. This is nonfluctuant area there is no area that needs to be opened at this time. Patient starting antibiotics. Patient was given pain medication emergency department. Patient also has a skin lesion which is concerning and will follow-up with dermatology evaluation for probable biopsy. Patient understands concerns of lesion and abscess. Patient understands close follow-up return parameters were discussed. Disposition Clinical Impression: Shoulder abscess, Skin lesion of back Disposition: HOME SELF-CARE Condition: Stable Instructions (If sedation given, give patient instructions): Abscess (ED) Additional Instructions: Please return to the Emergency Department if symptoms worsen or any other concerns. Prescriptions: Sulfamethox-Tmp 800-160Mg [Bactrim Ds] 1 each PO Q12HR #20 tab Cephalexin [Keflex] 500 mg PO Q6HR #40 cap Is patient prescribed a controlled substance at d/c from ED?: No Referrals: Cristi Mary MD [Primary Care Provider] - 1-2 days Corey Hennessy MD [STAFF PHYSICIAN] - 1-2 days Time of Disposition: 12:00
[2019-01-29 11:52] VITALS: BP 115/68; PULSE 104; TEMP 99
== END 2019-01-29 12:09 | disposition home or self-care (01) ==
LOC: EC 11:20
DX: L98.8 Other specified disorders of the skin and subcutaneous tissue (principal); L02.413 Cutaneous abscess of right upper limb; E11.42 Type 2 diabetes mellitus with diabetic polyneuropathy; E11.10 Type 2 diabetes mellitus with ketoacidosis without coma; K21.9 Gastro-esophageal reflux disease without esophagitis; F17.200 Nicotine dependence, unspecified, uncomplicated; Z79.4 Long term (current) use of insulin; Z79.899 Other long term (current) drug therapy
CPT/HCPCS: 99283

== ENCOUNTER 2019-01-31 17:09 | Inpatient (IN) | payer OTHER ==
[2019-01-31] MEDS ORDERED: ACETAMINOPHEN TAB 500 MG TAB PO STA (17:45)
[2019-01-31] MEDS ORDERED: IBUPROFEN 600 MG TAB PO STA (17:45)
[2019-01-31] MEDS ORDERED: ONDANSETRON 4 MG/2 ML VIAL IVP STA ×2 (17:46→18:56)
--- NOTE | 2019-01-31 17:47 | ED ---
General Adult HPI - General Chief complaint: Recheck/Abnormal Lab/Rx Stated complaint: shaky/fever Time Seen by Provider: 01/31/19 17:27 Source: patient, RN notes reviewed Mode of arrival: ambulatory Limitations: no limitations - History of Present Illness Initial comments: 48-year-old male with a past medical history of IDDM, GERD, renal disease presen ts to the emergency department for a chief complaint of chills and possible fever. Patient states he has had chills for the past hour and feels like he has a fever. States he has an abscess on his right shoulder that he had drained here in the emergency department 2 days ago. Patient has been taking Keflex and Bactrim since that time. Patient followed up with a architectural designer today and had it packed. However about 2 hours after he left the architectural designer he started to get chills and came to the emergency department.Patient has no other complaints at this time including shortness of breath, chest pain, abdominal pain, nausea or vomiting, headache, or visual changes. - Related Data Home Medications Medication Instructions Recorded Confirmed Insulin Aspart [NovoLOG Flexpen] See Protocol SQ AC-TID 11/16/16 01/31/19 Insulin Degludec [Tresiba 62 unit SQ HS 11/16/16 01/31/19 Flextouch U-200] Omeprazole 40 mg PO HS 12/20/18 01/31/19 Lisinopril 40 mg PO HS 01/29/19 01/31/19 hydrALAZINE HCL [Apresoline] 50 mg PO HS 01/29/19 01/31/19 Sulfamethox-Tmp 800-160Mg [Bactrim 1 tab PO Q12HR 01/31/19 01/31/19 Ds] Previous Rx's Medication Instructions Recorded Cephalexin [Keflex] 500 mg PO Q6HR #40 cap 01/29/19 Allergies Allergy/AdvReac Type Severity Reaction Status Date / Time No Known Allergies Allergy Verified 01/31/19 18:06 Review of Systems ROS Statement: Those systems with pertinent positive or pertinent negative responses have been documented in the HPI. ROS Other: All systems not noted in ROS Statement are negative. Past Medical History Past Medical History: Diabetes Mellitus, GERD/Reflux, Renal Disease Additional Past Medical History / Comment(s): IDDM type II, diabetic neuropathy bilateral feet, DKA, renal insufficiency, hypercalemia, past perianal abscess/fistula with surgery, BPH/urinary retention with surgery, UTI. History of Any Multi-Drug Resistant Organisms: None Reported Past Surgical History: No Surgical Hx Reported Additional Past Surgical History / Comment(s): 08/2014 cystoscopy with TURP, rectal exam/I&D/fistulotomy. I&D back Past Anesthesia/Blood Transfusion Reactions: No Reported Reaction Past Psychological History: No Psychological Hx Reported Smoking Status: Current every day smoker Past Alcohol Use History: None Reported Past Drug Use History: None Reported - Past Family History Mother Family Medical History: Diabetes Mellitus Additional Family Medical History / Comment(s): mother is Father Family Medical History: No Reported History Additional Family Medical History / Comment(s): Father is healthy. General Exam Limitations: no limitations General appearance: alert, in no apparent distress Head exam: Present: atraumatic, normocephalic, normal inspection Eye exam: Present: normal appearance, PERRL, EOMI. Absent: scleral icterus, conjunctival injection, periorbital swelling ENT exam: Present: normal exam Neck exam: Present: normal inspection, full ROM. Absent: tenderness, meningismus, lymphadenopathy Respiratory exam: Present: normal lung sounds bilaterally. Absent: respiratory distress, wheezes, rales, rhonchi, stridor Cardiovascular Exam: Present: regular rate, normal rhythm, normal heart sounds. Absent: systolic murmur, diastolic murmur, rubs, gallop, clicks Back exam: Present: other (There is a 6 and later by 6 cm abscess noted to the right upper back that is packed currently.) Course Vital Signs 01/31/19 01/31/19 17:14 19:05 Temperature 98.4 F 100.1 F H Pulse Rate 119 H 117 H Respiratory 18 19 Rate Blood Pressure 153/82 159/95 O2 Sat by Pulse 99 98 Oximetry EKG Findings - EKG Comments: EKG Findings:: Sinus tachycardia, ventricular rate 112, ND interval 144, QTC 420 Medical Decision Making - Medical Decision Making 48-year-old male with a past medical history of IDDM, GERD, renal disease presents to the emergency department for a chief complaint of chills and possible fever. Presentation patient did have a fever of 100.8 when taken by myself. He had an abscess I&D 2 days ago and saw dermatology today. Patient had Keflex and Bactrim since Tuesday. On exam he does have a 6 cm abscess noted to his right upper back. There is a packing in place. CBC reveals a white blood cell count of 14.8. CMP shows a creatinine of 2.4 which is chronic for patient. Hyperkalemia with a potassium of 6.0. Patient given medications for this. Patient will be kept in the hospital given his fever, insulin-dependent diabetes, and hyperkalemia. He'll be given IV antibiotics. Dr. Kurtz spoke with admitting physician who accepts. - Lab Data Result diagrams: 01/31/19 18:10 01/31/19 18:10 Lab Results 01/31/19 01/31/19 01/31/19 Range/Units 18:10 18:10 18:10 WBC 14.8 H (3.8-10.6) k/uL RBC 5.00 (4.30-5.90) m/uL Hgb 13.9 (13.0-17.5) gm/dL Hct 41.8 (39.0-53.0) % MCV 83.6 (80.0-100.0) fL MCH 27.8 (25.0-35.0) pg MCHC 33.3 (31.0-37.0) g/dL RDW 14.9 (11.5-15.5) % Plt Count 350 (150-450) k/uL Neutrophils % 85 % Lymphocytes % 5 % Monocytes % 6 % Eosinophils % 2 % Basophils % 1 % Neutrophils # 12.6 H (1.3-7.7) k/uL Lymphocytes # 0.7 L (1.0-4.8) k/uL Monocytes # 0.9 (0-1.0) k/uL Eosinophils # 0.4 (0-0.7) k/uL Basophils # 0.2 (0-0.2) k/uL PT (9.0-12.0) sec INR (<1.2) APTT (22.0-30.0) sec Sodium 133 L (137-145) mmol/L Potassium 6.0 H (3.5-5.1) mmol/L Chloride 100 (98-107) mmol/L Carbon Dioxide 22 (22-30) mmol/L Anion Gap 11 mmol/L BUN 43 H (9-20) mg/dL Creatinine 2.44 H (0.66-1.25) mg/dL Est GFR (CKD-EPI)AfAm 35 (>60 ml/min/1.73 sqM) Est GFR (CKD-EPI)NonAf 30 (>60 ml/min/1.73 sqM) Glucose 342 H (74-99) mg/dL Plasma Lactic Acid Jcarlos 1.6 (0.7-2.0) mmol/L Calcium 9.7 (8.4-10.2) mg/dL Total Bilirubin 0.5 (0.2-1.3) mg/dL AST 16 L (17-59) U/L ALT 13 L (21-72) U/L Alkaline Phosphatase 155 H (38-126) U/L Total Protein 7.2 (6.3-8.2) g/dL Albumin 4.0 (3.5-5.0) g/dL Urine Color Urine Appearance (Clear) Urine pH (5.0-8.0) Ur Specific [place] (1.001-1.035) Urine Protein (Negative) Urine Glucose (UA) (Negative) Urine Ketones (Negative) Urine Blood (Negative) Urine Nitrite (Negative) Urine Bilirubin (Negative) Urine Urobilinogen (<2.0) mg/dL Ur Leukocyte Esterase (Negative) 01/31/19 01/31/19 Range/Units 18:10 18:10 WBC (3.8-10.6) k/uL RBC (4.30-5.90) m/uL Hgb (13.0-17.5) gm/dL Hct (39.0-53.0) % MCV (80.0-100.0) fL MCH (25.0-35.0) pg MCHC (31.0-37.0) g/dL RDW (11.5-15.5) % Plt Count (150-450) k/uL Neutrophils % % Lymphocytes % % Monocytes % % Eosinophils % % Basophils % % Neutrophils # (1.3-7.7) k/uL Lymphocytes # (1.0-4.8) k/uL Monocytes # (0-1.0) k/uL Eosinophils # (0-0.7) k/uL Basophils # (0-0.2) k/uL PT 9.4 (9.0-12.0) sec INR 0.9 (<1.2) APTT 25.4 (22.0-30.0) sec Sodium (137-145) mmol/L Potassium (3.5-5.1) mmol/L Chloride (98-107) mmol/L Carbon Dioxide (22-30) mmol/L Anion Gap mmol/L BUN (9-20) mg/dL Creatinine (0.66-1.25) mg/dL Est GFR (CKD-EPI)AfAm (>60 ml/min/1.73 sqM) Est GFR (CKD-EPI)NonAf (>60 ml/min/1.73 sqM) Glucose (74-99) mg/dL Plasma Lactic Acid Jcarlos (0.7-2.0) mmol/L Calcium (8.4-10.2) mg/dL Total Bilirubin (0.2-1.3) mg/dL AST (17-59) U/L ALT (21-72) U/L Alkaline Phosphatase (38-126) U/L Total Protein (6.3-8.2) g/dL Albumin (3.5-5.0) g/dL Urine Color Light Yellow Urine Appearance Clear (Clear) Urine pH 5.5 (5.0-8.0) Ur Specific [place] 1.009 (1.001-1.035) Urine Protein Trace H (Negative) Urine Glucose (UA) 3+ H (Negative) Urine Ketones Negative (Negative) Urine Blood Negative (Negative) Urine Nitrite Negative (Negative) Urine Bilirubin Negative (Negative) Urine Urobilinogen <2.0 (<2.0) mg/dL Ur Leukocyte Esterase Negative (Negative) Disposition Clinical Impression: Hyperkalemia, Leukocytosis, Diabetes mellitus, Chronic kidney disease Disposition: ADMITTED IP TO THIS HOSP Condition: Fair Is patient prescribed a controlled substance at d/c from ED?: No Referrals: Cristi Mary MD [Primary Care Provider] - 1-2 days Time of Disposition: 20:42
[2019-01-31] MEDS: SODIUM CHLORIDE 0.9% 500 ML 500 ML IV SCH ×2 (18:25→18:31)
--- NOTE | 2019-01-31 18:41 | XR ---
EXAMINATION TYPE: XR chest 2V DATE OF EXAM: 01/31/2019 COMPARISON: 12/20/2018 HISTORY: Fever TECHNIQUE: Frontal and lateral views of the chest are obtained. FINDINGS: Heart and mediastinum are normal. Lungs are clear. Costophrenic angles are clear. Bony tho rax is intact. IMPRESSION: No active cardiopulmonary disease. Normal heart. No significant change.
[2019-01-31 18:58] LABS: Appearance,Urine Clear (Clear); Bilirubin,Urine Negative (Negative); Blood,Urine Negative (Negative); Color,Urine Light Yellow; Glucose,Urine (UA) 3+ (Negative); Ketones,Urine Negative (Negative); Leukocyte Esterase,Urine Negative (Negative); Nitrite,Urine Negative (Negative); PH, Urine 5.5 (5.0-8.0); Protein,Urine Trace (Negative); Specific Gravity,Urine 1.009 (1.001-1.035); Urobilinogen,Urine <2.0 mg/dL (<2.0)
[2019-01-31 18:59] LABS: Basophils # (A) 0.2 k/uL (0-0.2); Basophils % (A) 1 %; Eosinophils # (A) 0.4 k/uL (0-0.7); Eosinophils % (A) 2 %; HCT 41.8 % (39.0-53.0); HGB 13.9 gm/dL (13.0-17.5); Lymphocytes # (A) 0.7 k/uL (1.0-4.8); Lymphocytes % (A) 5 %; MCH 27.8 pg (25.0-35.0); MCHC 33.3 g/dL (31.0-37.0); MCV 83.6 fL (80.0-100.0); Mean Platelet Volume 8.1; Monocytes # (A) 0.9 k/uL (0-1.0); Monocytes % (A) 6 %; Neutrophils # (A) 12.6 k/uL (1.3-7.7); Neutrophils % (A) 85 %; Platelet Count 350 k/uL (150-450); RDW 14.9 % (11.5-15.5); WBC 14.8 k/uL (3.8-10.6)
[2019-01-31 19:05] LABS: INR 0.9 (<1.2); Partial Thromboplastin Time 25.4 sec (22.0-30.0); Prothrombin Time 9.4 sec (9.0-12.0)
[2019-01-31 19:08] LABS: Calcium 9.7 mg/dL (8.4-10.2); Total Bilirubin 0.5 mg/dL (0.2-1.3); Total Protein 7.2 g/dL (6.3-8.2)
[2019-01-31] MEDS ORDERED: SODIUM POLYSTYRENE SULFONATE 15 GM/60 ML BOTTLE PO ONE (20:29)
[2019-01-31] MEDS ORDERED: CALCIUM GLUCONATE 1 GM in SODIUM CHLORIDE 0.9% 100 ML IVPB ONE (20:29)
[2019-01-31] MEDS ORDERED: INSULIN REGULAR 100 UNIT/ML VIAL IV ONE (20:29)
[2019-01-31] MEDS ORDERED: SODIUM BICARB 8.4% 50 ML SYR (1 MEQ/ML) IV ONE (20:29)
[2019-01-31] MEDS ORDERED: ALBUTEROL NEB (CONC) 2.5 MG/0.5 ML INHALATION ONE (20:29)
[2019-01-31] MEDS ORDERED: DEXTROSE 50% SYRINGE 50 ML IVP STA (20:30)
[2019-01-31] MEDS ORDERED: ACETAMINOPHEN TAB 325 MG TAB PO PRN (20:34)
[2019-01-31] MEDS ORDERED: NALOXONE 0.4 MG/ML 1 ML VIAL IV PRN (20:34)
[2019-01-31] MEDS: SODIUM CHLORIDE 0.9% 1,000 ML IV SCH (20:56)
[2019-01-31 22:21] LABS: Glucose,Whole Blood 291 mg/dL (75-99)
[2019-01-31] MEDS: INSULIN ASPART (NovoLOG) 100 UNIT/ML VIAL SQ SCH (22:23)
[2019-01-31] MEDS ORDERED: MELATONIN 5 MG TABLET PO PRN (23:19)
[2019-01-31] MEDS ORDERED: hydrALAZINE HCL 50 MG TAB PO SCH (23:30)
[2019-01-31] MEDS ORDERED: NICOTINE 21MG/24HR PATCH TRANSDERM SCH (23:30)
[2019-01-31] MEDS ORDERED: LISINOPRIL 20 MG TAB PO SCH (23:30)
[2019-01-31] MEDS ORDERED: PANTOPRAZOLE 40 MG TABLET PO SCH (23:30)
[2019-01-31] MEDS: INSULIN DETEMIR (LEVEMIR) 100 UNIT/ML SYR SQ SCH ×2 (23:47→23:58)
[2019-01-31] MEDS: AMPICILLIN-SULBACTAM 3 GM in SODIUM CHLORIDE 0.9% 100 ML IVPB SCH (23:57)
[2019-02-01] MEDS: AMPICILLIN-SULBACTAM 3 GM in SODIUM CHLORIDE 0.9% 100 ML IVPB SCH ×2 (05:44→12:12)
[2019-02-01 07:41] LABS: Glucose,Whole Blood 37 mg/dL (75-99)
[2019-02-01 07:54] LABS: Glucose,Whole Blood 41 mg/dL (75-99)
[2019-02-01] MEDS: INSULIN ASPART (NovoLOG) 100 UNIT/ML VIAL SQ SCH ×2 (07:54→12:12)
[2019-02-01] MEDS: SODIUM CHLORIDE 0.9% 1,000 ML IV SCH (07:57)
--- NOTE | 2019-02-01 08:13 | P.HPIM ---
History of Present Illness H&P Date: 02/01/19 Chief Complaint: Back abscess This is a history of physical and a 48-year-old type I diabetic who was seen yesterday in urgent care and had right upper back abscess incised and drained. He states that he slowly did not improve and started having fever and chills. Evaluation emergency room did show significant fever with chills and because of his abscess and cellulitis of the back, he is appropriately admitted for intensive anabiotic treatment. General surgery is not consulted for possible revision of incision and drainage. Packing is noted. Review of Systems Constitutional: Reports chills, Reports fever Eyes: denies blurred vision, denies pain Ears, nose, mouth and throat: Denies headache, Denies sore throat Cardiovascular: Denies chest pain, Denies shortness of breath Respiratory: Denies cough Gastrointestinal: Denies abdominal pain, Denies diarrhea, Denies nausea, Denies vomiting Musculoskeletal: Denies myalgias Integumentary: Denies pruritus, Denies rash Past Medical History Past Medical History: Diabetes Mellitus, GERD/Reflux, Renal Disease Additional Past Medical History / Comment(s): IDDM type II, diabetic neuropathy bilateral feet, DKA, renal insufficiency, hypercalemia, past perianal abscess/fistula with surgery, BPH/urinary retention with surgery, UTI. History of Any Multi-Drug Resistant Organisms: None Reported Past Surgical History: No Surgical Hx Reported Additional Past Surgical History / Comment(s): 08/2014 cystoscopy with TURP, rectal exam/I&D/fistulotomy. I&D back Past Anesthesia/Blood Transfusion Reactions: No Reported Reaction Past Psychological History: No Psychological Hx Reported Additional Psychological History / Comment(s): Pt lives alone. He works for [employer]. He states he does not drive and getting to appointments can be difficult. Smoking Status: Current every day smoker Past Alcohol Use History: None Reported Additional Past Alcohol Use History / Comment(s): Pt started smoking about 1989 and is a 2 ppd smoker. Past Drug Use History: None Reported - Past Family History Mother Family Medical History: Diabetes Mellitus Additional Family Medical History / Comment(s): mother is Father Family Medical History: No Reported History Additional Family Medical History / Comment(s): Father is healthy. Medications and Allergies Home Medications Medication Instructions Recorded Confirmed Type RX: Insulin Aspart [NovoLOG See Protocol SQ AC-TID 11/16/16 01/31/19 History Flexpen] RX: Insulin Degludec [Tresiba 62 unit SQ HS 11/16/16 01/31/19 History Flextouch U-200] RX: Omeprazole 40 mg PO HS 12/20/18 01/31/19 History Cephalexin [Keflex] 500 mg PO Q6HR #40 cap 01/29/19 01/31/19 Rx RX: Lisinopril 40 mg PO HS 01/29/19 01/31/19 History RX: hydrALAZINE HCL [Apresoline] 50 mg PO HS 01/29/19 01/31/19 History Sulfamethox-Tmp 800-160Mg [Bactrim 1 tab PO Q12HR 01/31/19 01/31/19 History Ds] Allergies Allergy/AdvReac Type Severity Reaction Status Date / Time No Known Allergies Allergy Verified 01/31/19 18:06 Physical Exam Vitals: Vital Signs Temp Pulse Pulse Resp BP BP Pulse Ox 02/01/19 01:37 98.0 F 96 18 154/81 96 01/31/19 23:10 102 H 16 01/31/19 22:05 98.6 F 102 H 16 126/70 93 L 01/31/19 21:09 98.6 F 109 H 18 131/80 100 01/31/19 19:05 100.1 F H 117 H 19 159/95 98 01/31/19 17:14 98.4 F 119 H 18 153/82 99 Intake and Output 01/31/19 02/01/19 02/01/19 22:59 06:59 14:59 Intake Total 550 Balance 550 Intake: Intake, IV Titration 550 Amount Ampicillin-Sulbactam 3 gm 100 In Sodium Chloride 0.9% 100 ml @ 200 mls/hr IVPB Q6H [facility] Rx#:[id number] Sodium Chloride 0.9% 1, 450 000 ml @ 75 mls/hr IV . [id number] [facility] Rx#:[id number] Other: Voiding Method Toilet Urinal # Voids 1 1 Weight 104.326 kg - Constitutional General appearance: no acute distress - EENT Eyes: EOMI - Neck Neck: no lymphadenopathy - Respiratory Respiratory: bilateral: CTA - Cardiovascular Rhythm: regular Heart sounds: normal: S1, S2 Abnormal Heart Sounds: no S3 Gallop - Gastrointestinal General gastrointestinal: soft, no tenderness - Integumentary Right upper back abscess noted on patient. About 8 x 8 cm - Neurologic Neurologic: CNII-XII intact - Psychiatric Psychiatric: A&O x's 3 Results CBC & Chem 7: 01/31/19 18:10 01/31/19 18:10 Labs: Abnormal Lab Results - Last 24 Hours (Table) 01/31/19 01/31/19 01/31/19 Range/Units 18:10 18:10 18:10 WBC 14.8 H (3.8-10.6) k/uL Neutrophils # 12.6 H (1.3-7.7) k/uL Lymphocytes # 0.7 L (1.0-4.8) k/uL Sodium 133 L (137-145) mmol/L Potassium 6.0 H (3.5-5.1) mmol/L BUN 43 H (9-20) mg/dL Creatinine 2.44 H (0.66-1.25) mg/dL Glucose 342 H (74-99) mg/dL POC Glucose (mg/dL) (75-99) mg/dL AST 16 L (17-59) U/L ALT 13 L (21-72) U/L Alkaline Phosphatase 155 H (38-126) U/L Urine Protein Trace H (Negative) Urine Glucose (UA) 3+ H (Negative) 01/31/19 02/01/19 02/01/19 Range/Units 22:19 07:39 07:53 WBC (3.8-10.6) k/uL Neutrophils # (1.3-7.7) k/uL Lymphocytes # (1.0-4.8) k/uL Sodium (137-145) mmol/L Potassium (3.5-5.1) mmol/L BUN (9-20) mg/dL Creatinine (0.66-1.25) mg/dL Glucose (74-99) mg/dL POC Glucose (mg/dL) 291 H 37 L 41 L (75-99) mg/dL AST (17-59) U/L ALT (21-72) U/L Alkaline Phosphatase (38-126) U/L Urine Protein (Negative) Urine Glucose (UA) (Negative) Microbiology - Last 24 Hours (Table) 01/31/19 21:10 Gram Stain - Preliminary Back Wound Culture - Preliminary Thrombosis Risk Factor Assmnt - Choose All That Apply Any of the Below Risk Factors Present?: Yes Each Factor Represents 1 point: Age 41-60 years, Obesity (BMI >25) Other Risk Factors: No Other congenital or acquired thrombophilia - If yes, enter type in comment: No Thrombosis Risk Factor Assessment Total Risk Factor Score: 2 Thrombosis Risk Factor Assessment Level: Low Risk Assessment and Plan (1) Diabetes mellitus Current Visit: Yes Status: Acute Code(s): E11.9 - TYPE 2 DIABETES MELLITUS WITHOUT COMPLICATIONS SNOMED Code(s): 14708902 (2) Leukocytosis Current Visit: Yes Status: Acute Code(s): D72.829 - ELEVATED WHITE BLOOD CELL COUNT, UNSPECIFIED SNOMED Code(s): 627269333 (3) Fever Current Visit: No Status: Acute Code(s): R50.9 - FEVER, UNSPECIFIED SNOMED Code(s): 918042162 (4) Shoulder abscess Current Visit: No Status: Acute Code(s): L02.419 - CUTANEOUS ABSCESS OF LIMB, UNSPECIFIED SNOMED Code(s): 32002179 Plan: Continue Unasyn at this time. Await general surgery input. Check CBC and CMP in a.m. Given hypoglycemia, decrease Lantus to about [address] on sliding scale. Time with Patient: Greater than 30
[2019-02-01 08:16] LABS: Basophils # (A) 0.1 k/uL (0-0.2); Basophils % (A) 1 %; Eosinophils # (A) 0.4 k/uL (0-0.7); Eosinophils % (A) 4 %; HCT 39.2 % (39.0-53.0); HGB 12.8 gm/dL (13.0-17.5); Lymphocytes # (A) 1.2 k/uL (1.0-4.8); Lymphocytes % (A) 11 %; MCH 27.5 pg (25.0-35.0); MCHC 32.8 g/dL (31.0-37.0); MCV 83.7 fL (80.0-100.0); Monocytes % (A) 9 %; Neutrophils # (A) 8.3 k/uL (1.3-7.7); Neutrophils % (A) 74 %; Platelet Count 313 k/uL (150-450); RBC 4.68 m/uL (4.30-5.90); RDW 12.9 % (11.5-15.5); WBC 11.2 k/uL (3.8-10.6)
[2019-02-01 08:16] LABS: Glucose,Whole Blood 67 mg/dL (75-99)
[2019-02-01 08:21] LABS: Albumin 3.5 g/dL (3.5-5.0); Calcium 9.6 mg/dL (8.4-10.2); Potassium 4.8 mmol/L (3.5-5.1); Total Bilirubin 0.5 mg/dL (0.2-1.3); Total Protein 6.6 g/dL (6.3-8.2)
[2019-02-01 08:36] LABS: Glucose,Whole Blood 123 mg/dL (75-99)
[2019-02-01 08:49] VITALS: RESP 14
[2019-02-01 11:49] LABS: Glucose,Whole Blood 208 mg/dL (75-99)
--- NOTE | 2019-02-01 12:55 | P.GSCN ---
History of Present Illness Consult date: 02/01/19 Reason for Consult: right shoulder abscess Requesting physician: Cristi Mary History of present illness: CHIEF COMPLAINT: abscess HISTORY OF PRESENT ILLNESS: 48 year old male who presents to the ER with a chief complaint of a fever. patient was recently evaluated in the emergency room for possible abscess. He was discharged home on Keflex and Bactrim. Patient states he saw a lead business analyst yesterday and had it drained and packing placed. He reports shortly after getting home he started to have the chills and a fever and decided to come to the emergency room for further evaluation. The patient states he has another appointment tomorrow with the lead business analyst to have his wound repacked. PAST MEDICAL HISTORY: See list. PAST SURGICAL HISTORY: See list. SOCIAL HISTORY: No illicit drug use. REVIEW OF SYSTEMS: CONSTITUTIONAL: Denies fever or chills. HEENT: Denies blurred vision, vision changes, or eye pain. Denies hemoptysis CARDIOVASCULAR: Denies chest pain or pressure. RESPIRATORY: No shortness of breath. GASTROINTESTINAL: Refer to HPI for pertinent findings HEMATOLOGIC: Denies bleeding disorders. GENITOURINARY: Denies any blood in urine. SKIN: Denies pruitis. Denies rash. Reports wound to back. PHYSICAL EXAM: VITAL SIGNS: Reviewed. GENERAL: Well-developed in no acute distress. HEENT: No sclera icterus. Extraocular movements grossly intact. Moist buccal mucosa. Head is atraumatic, normocephalic. ABDOMEN: Soft. Nondistended. Nontender. NEUROLOGIC: Alert and oriented. Cranial nerves II through XII grossly intact. SKIN: Very small open wound to mid upper back with packing present. Surrounding firmness and erythema. No drainable abscess. LABORATORY DATA: WBC 11.2. Hemoglobin 12.8. ASSESSMENT: 1. Abscess to mid upper back, suspect removal of sebaceous cyst PLAN: Patient does not require additional debridement He can continue packing to the wound. He states he has an appointment tomorrow with lead business analyst. Continue antibiotics Discharge per medicine Nurse practitioner note has been reviewed by physician. Signing provider agrees with the documented findings, assessment, and plan of care. Past Medical History Past Medical History: Diabetes Mellitus, GERD/Reflux, Renal Disease Additional Past Medical History / Comment(s): IDDM type II, diabetic neuropathy bilateral feet, DKA, renal insufficiency, hypercalemia, past perianal abscess/fistula with surgery, BPH/urinary retention with surgery, UTI. History of Any Multi-Drug Resistant Organisms: None Reported Past Surgical History: No Surgical Hx Reported Additional Past Surgical History / Comment(s): 08/2014 cystoscopy with TURP, rectal exam/I&D/fistulotomy. I&D back Past Anesthesia/Blood Transfusion Reactions: No Reported Reaction Past Psychological History: No Psychological Hx Reported Additional Psychological History / Comment(s): Pt lives alone. He works for [employer]. He states he does not drive and getting to appointments can be difficult. Smoking Status: Current every day smoker Past Alcohol Use History: None Reported Additional Past Alcohol Use History / Comment(s): Pt started smoking about 1989 and is a 2 ppd smoker. Past Drug Use History: None Reported - Past Family History Mother Family Medical History: Diabetes Mellitus Additional Family Medical History / Comment(s): mother is Father Family Medical History: No Reported History Additional Family Medical History / Comment(s): Father is healthy. Medications and Allergies Home Medications Medication Instructions Recorded Confirmed Type Insulin Aspart [NovoLOG Flexpen] See Protocol SQ AC-TID 11/16/16 01/31/19 History Insulin Degludec [Tresiba 62 unit SQ HS 11/16/16 01/31/19 History Flextouch U-200] Omeprazole 40 mg PO HS 12/20/18 01/31/19 History Cephalexin [Keflex] 500 mg PO Q6HR #40 cap 01/29/19 01/31/19 Rx Lisinopril 40 mg PO HS 01/29/19 01/31/19 History hydrALAZINE HCL [Apresoline] 50 mg PO HS 01/29/19 01/31/19 History Sulfamethox-Tmp 800-160Mg [Bactrim 1 tab PO Q12HR 01/31/19 01/31/19 History Ds] Allergies Allergy/AdvReac Type Severity Reaction Status Date / Time No Known Allergies Allergy Verified 01/31/19 18:06 Surgical - Exam Vital Signs Temp Pulse Resp BP Pulse Ox 98.4 F 119 H 18 153/82 99 01/31/19 17:14 01/31/19 17:14 01/31/19 17:14 01/31/19 17:14 01/31/19 17:14 Results - Labs 02/01/19 07:36 02/01/19 07:36 Abnormal Lab Results - Last 24 Hours (Table) 01/31/19 01/31/19 01/31/19 Range/Units 18:10 18:10 18:10 WBC 14.8 H (3.8-10.6) k/uL Hgb (13.0-17.5) gm/dL Neutrophils # 12.6 H (1.3-7.7) k/uL Lymphocytes # 0.7 L (1.0-4.8) k/uL Sodium 133 L (137-145) mmol/L Potassium 6.0 H (3.5-5.1) mmol/L BUN 43 H (9-20) mg/dL Creatinine 2.44 H (0.66-1.25) mg/dL Glucose 342 H (74-99) mg/dL POC Glucose (mg/dL) (75-99) mg/dL AST 16 L (17-59) U/L ALT 13 L (21-72) U/L Alkaline Phosphatase 155 H (38-126) U/L Urine Protein Trace H (Negative) Urine Glucose (UA) 3+ H (Negative) 01/31/19 02/01/19 02/01/19 Range/Units 22:19 07:36 07:36 WBC 11.2 H (3.8-10.6) k/uL Hgb 12.8 L (13.0-17.5) gm/dL Neutrophils # 8.3 H (1.3-7.7) k/uL Lymphocytes # (1.0-4.8) k/uL Sodium (137-145) mmol/L Potassium (3.5-5.1) mmol/L BUN 36 H (9-20) mg/dL Creatinine 1.98 H (0.66-1.25) mg/dL Glucose 33 L* (74-99) mg/dL POC Glucose (mg/dL) 291 H (75-99) mg/dL AST 12 L (17-59) U/L ALT 19 L (21-72) U/L Alkaline Phosphatase 132 H (38-126) U/L Urine Protein (Negative) Urine Glucose (UA) (Negative) 02/01/19 02/01/19 02/01/19 Range/Units 07:39 07:53 08:14 WBC (3.8-10.6) k/uL Hgb (13.0-17.5) gm/dL Neutrophils # (1.3-7.7) k/uL Lymphocytes # (1.0-4.8) k/uL Sodium (137-145) mmol/L Potassium (3.5-5.1) mmol/L BUN (9-20) mg/dL Creatinine (0.66-1.25) mg/dL Glucose (74-99) mg/dL POC Glucose (mg/dL) 37 L 41 L 67 L (75-99) mg/dL AST (17-59) U/L ALT (21-72) U/L Alkaline Phosphatase (38-126) U/L Urine Protein (Negative) Urine Glucose (UA) (Negative) 02/01/19 02/01/19 Range/Units 08:35 11:48 WBC (3.8-10.6) k/uL Hgb (13.0-17.5) gm/dL Neutrophils # (1.3-7.7) k/uL Lymphocytes # (1.0-4.8) k/uL Sodium (137-145) mmol/L Potassium (3.5-5.1) mmol/L BUN (9-20) mg/dL Creatinine (0.66-1.25) mg/dL Glucose (74-99) mg/dL POC Glucose (mg/dL) 123 H 208 H (75-99) mg/dL AST (17-59) U/L ALT (21-72) U/L Alkaline Phosphatase (38-126) U/L Urine Protein (Negative) Urine Glucose (UA) (Negative) Microbiology - Last 24 Hours (Table) 01/31/19 21:10 Gram Stain - Preliminary Back Wound Culture - Preliminary Diabetes panel 01/31/19 02/01/19 Range/Units 18:10 07:36 Sodium 133 L 143 (137-145) mmol/L Potassium 6.0 H 4.8 (3.5-5.1) mmol/L Chloride 100 107 (98-107) mmol/L Carbon Dioxide 22 28 (22-30) mmol/L BUN 43 H 36 H (9-20) mg/dL Creatinine 2.44 H 1.98 H (0.66-1.25) mg/dL Glucose 342 H 33 L* (74-99) mg/dL Calcium 9.7 9.6 (8.4-10.2) mg/dL AST 16 L 12 L (17-59) U/L ALT 13 L 19 L (21-72) U/L Alkaline Phosphatase 155 H 132 H (38-126) U/L Total Protein 7.2 6.6 (6.3-8.2) g/dL Albumin 4.0 3.5 (3.5-5.0) g/dL Calcium panel 01/31/19 02/01/19 Range/Units 18:10 07:36 Calcium 9.7 9.6 (8.4-10.2) mg/dL Albumin 4.0 3.5 (3.5-5.0) g/dL Pituitary panel 01/31/19 02/01/19 Range/Units 18:10 07:36 Sodium 133 L 143 (137-145) mmol/L Potassium 6.0 H 4.8 (3.5-5.1) mmol/L Chloride 100 107 (98-107) mmol/L Carbon Dioxide 22 28 (22-30) mmol/L BUN 43 H 36 H (9-20) mg/dL Creatinine 2.44 H 1.98 H (0.66-1.25) mg/dL Glucose 342 H 33 L* (74-99) mg/dL Calcium 9.7 9.6 (8.4-10.2) mg/dL Adrenal panel 01/31/19 02/01/19 Range/Units 18:10 07:36 Sodium 133 L 143 (137-145) mmol/L Potassium 6.0 H 4.8 (3.5-5.1) mmol/L Chloride 100 107 (98-107) mmol/L Carbon Dioxide 22 28 (22-30) mmol/L BUN 43 H 36 H (9-20) mg/dL Creatinine 2.44 H 1.98 H (0.66-1.25) mg/dL Glucose 342 H 33 L* (74-99) mg/dL Calcium 9.7 9.6 (8.4-10.2) mg/dL Total Bilirubin 0.5 0.5 (0.2-1.3) mg/dL AST 16 L 12 L (17-59) U/L ALT 13 L 19 L (21-72) U/L Alkaline Phosphatase 155 H 132 H (38-126) U/L Total Protein 7.2 6.6 (6.3-8.2) g/dL Albumin 4.0 3.5 (3.5-5.0) g/dL
--- NOTE | 2019-02-01 14:22 | P.DS ---
Providers Date of admission: 01/31/19 21:03 Expected date of discharge: 02/01/19 Attending physician: Cristi Mary Consults: 01/31/19 23:14 Consult Physician Routine Consulting Provider: Fernie Iqbal Consult Reason/Comments: R shoulder abscess Do you want consulting provider notified?: Yes, Notify in am Primary care physician: Cristi Mary - Discharge Diagnosis(es) (1) Diabetes mellitus Current Visit: Yes Status: Acute (2) Leukocytosis Current Visit: Yes Status: Acute (3) Fever Current Visit: No Status: Acute (4) Shoulder abscess Current Visit: No Status: Acute Hospital Course: This is a discharge summary on a 48-year-old white male essentially with admitted for back abscess. Recent symptoms and drainage is done but he had fever and chills. He was placed on Unasyn and had surgical evaluation. The patient is not stable and will be discharged once cleared by surgery. Patient Condition at Discharge: Fair Plan - Discharge Summary Discharge Rx Participant: Yes New Discharge Prescriptions: New Amoxic-Pot Clav 875-125Mg [Augmentin 875-125] 1 tab PO Q12HR 7 Days #14 tablet Nicotine 21Mg/24Hr Patch [Habitrol] 1 patch TRANSDERM DAILY@2100 patch Continue Insulin Degludec [Tresiba Flextouch U-200] 62 unit SQ HS Insulin Aspart [NovoLOG Flexpen] See Protocol SQ AC-TID Omeprazole 40 mg PO HS Lisinopril 40 mg PO HS hydrALAZINE HCL [Apresoline] 50 mg PO HS Cephalexin [Keflex] 500 mg PO Q6HR #40 cap Sulfamethox-Tmp 800-160Mg [Bactrim DS 800-160 mg] 1 tab PO Q12HR Discharge Medication List Insulin Aspart [NovoLOG Flexpen] See Protocol SQ AC-TID 11/16/16 [History] Insulin Degludec [Tresiba Flextouch U-200] 62 unit SQ HS 11/16/16 [History] Omeprazole 40 mg PO HS 12/20/18 [History] Cephalexin [Keflex] 500 mg PO Q6HR #40 cap 01/29/19 [Rx] Lisinopril 40 mg PO HS 01/29/19 [History] hydrALAZINE HCL [Apresoline] 50 mg PO HS 01/29/19 [History] Sulfamethox-Tmp 800-160Mg [Bactrim DS 800-160 mg] 1 tab PO Q12HR 01/31/19 [History] Amoxic-Pot Clav 875-125Mg [Augmentin 875-125] 1 tab PO Q12HR 7 Days #14 tablet 02/01/19 [Rx] Nicotine 21Mg/24Hr Patch [Habitrol] 1 patch TRANSDERM DAILY@2100 patch 02/01/19 [Rx] Follow up Appointment(s)/Referral(s): Cristi Mary MD [Primary Care Provider] - 1-2 days
[2019-02-01 14:37] VITALS: BP 183/96; PULSE 112; TEMP 99
[2019-02-01] MEDS ORDERED: INSULIN DETEMIR (LEVEMIR) 100 UNIT/ML SYR SQ SCH (21:00)
== END 2019-02-01 14:37 | disposition home or self-care (01) | DRG 603 ==
LOC: EC 17:09 → 3NMEDONC 21:03 → 4SSUR 02-01 01:54
PROVIDERS: ADMIT Family Medicine; ATTEND Family Medicine
DX: L02.212 Cutaneous abscess of back [any part, except buttock and flank] (principal); E10.22 Type 1 diabetes mellitus with diabetic chronic kidney disease; E10.40 Type 1 diabetes mellitus with diabetic neuropathy, unspecified; E10.649 Type 1 diabetes mellitus with hypoglycemia without coma; E87.5 Hyperkalemia; F17.210 Nicotine dependence, cigarettes, uncomplicated; K21.9 Gastro-esophageal reflux disease without esophagitis; L03.312 Cellulitis of back [any part except buttock and flank]; N18.9 Chronic kidney disease, unspecified; Z79.4 Long term (current) use of insulin; Z83.3 Family history of diabetes mellitus; Z79.2 Long term (current) use of antibiotics; Z87.440 Personal history of urinary (tract) infections; L72.3 Sebaceous cyst; Z60.2 Problems related to living alone; N40.1 Benign prostatic hyperplasia with lower urinary tract symptoms; R33.8 Other retention of urine
CPT/HCPCS: 36415; 71046; 80053; 81003; 83605; 85025; 85610; 85730; 87040; 87070; 87205; 93005; 96365; 96366; 96367; 96375; 99284

== ENCOUNTER 2019-07-09 10:28 | Observation (INO) | payer OTHER ==
[2019-07-09] MEDS ORDERED: PIPERACILLIN-TAZOBACTAM 3.375 GM in SODIUM CHLORIDE 0.9% 100 ML IVPB STA (11:13)
[2019-07-09] MEDS ORDERED: SODIUM CHLORIDE 0.9% 1,000 ML IV ONE (11:14)
[2019-07-09] MEDS ORDERED: SODIUM CHLORIDE 0.9% 500 ML 500 ML IV ONE (11:14)
[2019-07-09] MEDS ORDERED: RX INFO: IV CONTRAST WAS GIVEN 1 EACH MISC MISCELLANE PRN (11:20)
[2019-07-09] MEDS ORDERED: VANCOMYCIN IV PER PHARMACY 1 EACH MISC MISCELLANE PRN (11:21)
[2019-07-09] MEDS ORDERED: VANCOMYCIN 1,750 MG in SODIUM CHLORIDE 0.9% 250 ML IVPB STA (11:24)
[2019-07-09 11:57] LABS: Basophils # (A) 0.1 k/uL (0-0.2); Basophils % (A) 1 %; Eosinophils # (A) 0.3 k/uL (0-0.7); Eosinophils % (A) 3 %; HCT 48.2 % (39.0-53.0); HGB 16.2 gm/dL (13.0-17.5); Lymphocytes # (A) 1.3 k/uL (1.0-4.8); Lymphocytes % (A) 11 %; MCH 28.3 pg (25.0-35.0); MCHC 33.6 g/dL (31.0-37.0); Monocytes % (A) 9 %; Neutrophils % (A) 76 %; Platelet Count 332 k/uL (150-450); RBC 5.74 m/uL (4.30-5.90); RDW 12.1 % (11.5-15.5); WBC 11.9 k/uL (3.8-10.6)
[2019-07-09 11:58] LABS: VBG PH 7.46 (7.31-7.41)
--- NOTE | 2019-07-09 12:17 | ED ---
Skin/Abscess/FB HPI - General Chief complaint: Skin/Abscess/Foreign Body Stated complaint: infected wound on back Time Seen by Provider: 07/09/19 11:00 Source: patient, RN notes reviewed Mode of arrival: ambulatory Limitations: no limitations - History of Present Illness Initial comments: 48-year-old male presents emergency Department chief complaint of infected wound on his back. Patient states that he had lymph nodes biopsy and removed at [facility] 6 weeks ago. Patient states that he'll follow-up on the last week and which are getting was fine states that he had a clear to go back to work. Patient states that since Tuesday he had some open drainage and mild increase in pain. Reports no fevers or chills. He states initially he had a wound which was excised by dermatology and was diagnosed with melanoma. He states he had complete workup with [facility] including multiple CAT scans with no findings other than the small lymph nodes that they removed/biopsy. Patient denies any chest pain, shortness breath denies any nausea vomiting. He states his blood sugars have been in check - Related Data Home Medications Medication Instructions Recorded Confirmed Insulin Aspart [NovoLOG Flexpen] See Protocol SQ AC-TID 11/16/16 01/31/19 Insulin Degludec [Tresiba 62 unit SQ HS 11/16/16 01/31/19 Flextouch U-200] Omeprazole 40 mg PO HS 12/20/18 01/31/19 Lisinopril 40 mg PO HS 01/29/19 01/31/19 hydrALAZINE HCL [Apresoline] 50 mg PO HS 01/29/19 01/31/19 Sulfamethox-Tmp 800-160Mg [Bactrim 1 tab PO Q12HR 01/31/19 01/31/19 DS 800-160 mg] Previous Rx's Medication Instructions Recorded Cephalexin [Keflex] 500 mg PO Q6HR #40 cap 01/29/19 Amoxic-Pot Clav 875-125Mg 1 tab PO Q12HR 7 Days #14 tablet 02/01/19 [Augmentin 875-125] Nicotine 21Mg/24Hr Patch [Habitrol] 1 patch TRANSDERM DAILY@2100 patch 02/01/19 Allergies Allergy/AdvReac Type Severity Reaction Status Date / Time No Known Allergies Allergy Verified 07/09/19 10:52 Review of Systems ROS Statement: Those systems with pertinent positive or pertinent negative responses have been documented in the HPI. ROS Other: All systems not noted in ROS Statement are negative. Past Medical History Past Medical History: Diabetes Mellitus, GERD/Reflux, Renal Disease Additional Past Medical History / Comment(s): IDDM type II, diabetic neuropathy bilateral feet, DKA, renal insufficiency, hypercalemia, past perianal abscess/fistula with surgery, BPH/urinary retention with surgery, UTI. History of Any Multi-Drug Resistant Organisms: None Reported Past Surgical History: No Surgical Hx Reported Additional Past Surgical History / Comment(s): 08/2014 cystoscopy with TURP, rectal exam/I&D/fistulotomy. I&D back Past Anesthesia/Blood Transfusion Reactions: No Reported Reaction Past Psychological History: No Psychological Hx Reported Smoking Status: Current every day smoker Past Alcohol Use History: None Reported Past Drug Use History: None Reported - Past Family History Mother Family Medical History: Diabetes Mellitus Additional Family Medical History / Comment(s): mother is Father Family Medical History: No Reported History Additional Family Medical History / Comment(s): Father is healthy. General Exam Limitations: no limitations General appearance: alert, in no apparent distress Head exam: Present: atraumatic, normocephalic, normal inspection Eye exam: Present: normal appearance, PERRL, EOMI. Absent: scleral icterus, conjunctival injection, periorbital swelling ENT exam: Present: mucous membranes moist Respiratory exam: Present: normal lung sounds bilaterally. Absent: respiratory distress, wheezes, rales, rhonchi, stridor Cardiovascular Exam: Present: normal rhythm, tachycardia, normal heart sounds. Absent: systolic murmur, diastolic murmur, rubs, gallop, clicks Back exam: Absent: normal inspection (Large open abscess along the incision line which was healed above and below open area this open area measures approximate 6 cm enlarged area of diameter, approximately 3-4 cm deep with surrounding erythematous changes and purulent drainage noted) Neurological exam: Present: alert, CN II-XII intact Course Vital Signs 07/09/19 07/09/19 10:52 11:45 Temperature 98 F Pulse Rate 124 H 104 H Respiratory 18 16 Rate Blood Pressure 134/87 155/86 O2 Sat by Pulse 98 96 Oximetry Medical Decision Making - Medical Decision Making Case discussed with Dr. Mary who accepts patient for admission with wound care. Patient be continued on antibiotics. - Lab Data Result diagrams: 07/09/19 11:20 07/09/19 11:20 Lab Results 07/09/19 07/09/19 07/09/19 Range/Units 11:20 11:20 11:20 WBC 11.9 H (3.8-10.6) k/uL RBC 5.74 (4.30-5.90) m/uL Hgb 16.2 (13.0-17.5) gm/dL Hct 48.2 (39.0-53.0) % MCV 84.0 (80.0-100.0) fL MCH 28.3 (25.0-35.0) pg MCHC 33.6 (31.0-37.0) g/dL RDW 12.1 (11.5-15.5) % Plt Count 332 (150-450) k/uL Neutrophils % 76 % Lymphocytes % 11 % Monocytes % 9 % Eosinophils % 3 % Basophils % 1 % Neutrophils # 9.0 H (1.3-7.7) k/uL Lymphocytes # 1.3 (1.0-4.8) k/uL Monocytes # 1.0 (0-1.0) k/uL Eosinophils # 0.3 (0-0.7) k/uL Basophils # 0.1 (0-0.2) k/uL VBG pH (7.31-7.41) VBG pCO2 (37-51) mmHg VBG HCO3 (24-28) mmol/L Sodium 132 L (137-145) mmol/L Potassium 5.0 (3.5-5.1) mmol/L Chloride 99 (98-107) mmol/L Carbon Dioxide 21 L (22-30) mmol/L Anion Gap 12 mmol/L BUN 38 H (9-20) mg/dL Creatinine 1.70 H (0.66-1.25) mg/dL Est GFR (CKD-EPI)AfAm 54 (>60 ml/min/1.73 sqM) Est GFR (CKD-EPI)NonAf 47 (>60 ml/min/1.73 sqM) Glucose 270 H (74-99) mg/dL Plasma Lactic Acid Jcarlos 2.6 H* (0.7-2.0) mmol/L Calcium 9.3 (8.4-10.2) mg/dL Total Bilirubin 0.8 (0.2-1.3) mg/dL AST 28 (17-59) U/L ALT 14 (4-49) U/L Alkaline Phosphatase 188 H (38-126) U/L Total Protein 7.1 (6.3-8.2) g/dL Albumin 3.7 (3.5-5.0) g/dL 07/09/19 Range/Units 11:20 WBC (3.8-10.6) k/uL RBC (4.30-5.90) m/uL Hgb (13.0-17.5) gm/dL Hct (39.0-53.0) % MCV (80.0-100.0) fL MCH (25.0-35.0) pg MCHC (31.0-37.0) g/dL RDW (11.5-15.5) % Plt Count (150-450) k/uL Neutrophils % % Lymphocytes % % Monocytes % % Eosinophils % % Basophils % % Neutrophils # (1.3-7.7) k/uL Lymphocytes # (1.0-4.8) k/uL Monocytes # (0-1.0) k/uL Eosinophils # (0-0.7) k/uL Basophils # (0-0.2) k/uL VBG pH 7.46 H (7.31-7.41) VBG pCO2 34 L (37-51) mmHg VBG HCO3 24 (24-28) mmol/L Sodium (137-145) mmol/L Potassium (3.5-5.1) mmol/L Chloride (98-107) mmol/L Carbon Dioxide (22-30) mmol/L Anion Gap mmol/L BUN (9-20) mg/dL Creatinine (0.66-1.25) mg/dL Est GFR (CKD-EPI)AfAm (>60 ml/min/1.73 sqM) Est GFR (CKD-EPI)NonAf (>60 ml/min/1.73 sqM) Glucose (74-99) mg/dL Plasma Lactic Acid Jcarlos (0.7-2.0) mmol/L Calcium (8.4-10.2) mg/dL Total Bilirubin (0.2-1.3) mg/dL AST (17-59) U/L ALT (4-49) U/L Alkaline Phosphatase (38-126) U/L Total Protein (6.3-8.2) g/dL Albumin (3.5-5.0) g/dL Disposition Clinical Impression: Surgical wound dehiscence, Abscess or cellulitis of back Disposition: ADMITTED IP TO THIS HOSP Condition: Fair Referrals: Cristi Mary MD [Primary Care Provider] - 1-2 days
[2019-07-09 12:24] LABS: Albumin 3.7 g/dL (3.5-5.0); Calcium 9.3 mg/dL (8.4-10.2); Total Bilirubin 0.8 mg/dL (0.2-1.3); Total Protein 7.1 g/dL (6.3-8.2)
--- NOTE | 2019-07-09 13:22 | CT ---
EXAMINATION TYPE: CT chest wo con DATE OF EXAM: 07/09/2019 COMPARISON: none HISTORY: upper back abscess with open wound CT DLP: 590.[address] of the chest was performed with lung and mediastinal window settings submitted. The la ck of contrast limits evaluation of the vascular, mediastinal and parenchymal structures including th e upper abdomen. LUNGS: The lungs are clear and free of infiltrate. No atelectasis. No pulmonary nodule or mass is de tected. No pleural effusion. No CT evidence of interstitial lung disease. MEDIASTINUM/BINDU: Thoracic aorta is of normal caliber with limited evaluation given lack of contrast . The heart is not enlarged. No evidence for mediastinal mass. No lymph nodes greater than 1cm. UPPER ABDOMEN: No significant abnormality is seen. OTHER: Subcutaneous abscess mid back upper thoracic level measures 4.4 x 2.1 x 3.4 cm. Wound is open. Surrounding cellulitis identified. Attenuation left axilla measuring 2.7 x 1.6 cm and to a lesser ex tent right axilla. IMPRESSION: 1. Open wound upper back with internal foci of air consistent with abscess. Surrounding cellulitis. No bone destruction. Nonspecific attenuation within the axillary regions may reflect additional areas of cellulitis.
[2019-07-09] MEDS ORDERED: NALOXONE 0.4 MG/ML 1 ML VIAL IV PRN (13:41)
[2019-07-09] MEDS ORDERED: HYDROcodone/APAP 5-325MG 1 EACH TAB PO PRN (13:41)
[2019-07-09] MEDS: SODIUM CHLORIDE 0.9% 1,000 ML IV SCH (14:12)
[2019-07-09 14:32] LABS: Glucose,Whole Blood 186 mg/dL (75-99)
[2019-07-09] MEDS: LISINOPRIL 20 MG TAB PO SCH (16:18)
[2019-07-09 16:35] LABS: Glucose,Whole Blood 226 mg/dL (75-99)
[2019-07-09] MEDS: INSULIN ASPART (NovoLOG) 100 UNIT/ML VIAL SQ SCH ×3 (17:19→21:21)
[2019-07-09 21:11] LABS: Glucose,Whole Blood 391 mg/dL (75-99)
[2019-07-09] MEDS: hydrALAZINE HCL 50 MG TAB PO SCH (21:15)
[2019-07-09] MEDS: PANTOPRAZOLE 40 MG TABLET PO SCH (21:15)
[2019-07-09] MEDS: INSULIN DETEMIR (LEVEMIR) 100 UNIT/ML SYR SQ SCH (21:21)
[2019-07-10] MEDS ORDERED: PIPERACILLIN-TAZOBACTAM 3.375 GM in SODIUM CHLORIDE 0.9% 100 ML IVPB SCH ×2
--- NOTE | 2019-07-10 00:24 | P.CONS ---
History of Present Illness - Reason for Consult Consult date: 07/09/19 Upper back wound and cellulitis Requesting physician: Cristi Mary - Chief Complaint Upper back wound x few days - History of Present Illness Patient is a 48 year male who apparently did have melanoma on the upper back that has been resected by her local manager progressive care subsequently the patient has been sent to the [facility] for further evaluation and patient mentioned he did have a workup done and apparently was a lymph node to have be subsequently removed by physician at [facility] and the patient did have primary closure of his wound after surgery and the patient wound has healed up and he was returned back to work however yesterday the patient woke up and noticed he is short to be soaked in pulse and the patient has developed a signif icant wound to the upper back area patient did have mild the leg aching pain 2-3 out of 10 and no radiation patient denies high-grade fever or chills with these symptoms the patient presents to [facility] ER patient did have a CT of the chest with tissues upper back wound with some air foci and concern for abscess patient did have local wound cultures obtained he was started on vancomycin and Zosyn has been admitted to the hospital infectious disease has been consulted for further recommendation regarding antibiotic therapy as well as local wound care Review of Systems Positive point has been mentioned in the HPI rest of the systems are negative Past Medical History Past Medical History: Diabetes Mellitus, GERD/Reflux, Renal Disease Additional Past Medical History / Comment(s): IDDM type II, diabetic neuropathy bilateral feet, DKA, renal insufficiency, hypercalemia, past perianal absc ess/fistula with surgery, BPH/urinary retention with surgery, UTI. History of Any Multi-Drug Resistant Organisms: None Reported Past Surgical History: No Surgical Hx Reported Additional Past Surgical History / Comment(s): 08/2014 cystoscopy with TURP, rectal exam/I&D/fistulotomy. I&D back Past Anesthesia/Blood Transfusion Reactions: No Reported Reaction Past Psychological History: No Psychological Hx Reported Additional Psychological History / Comment(s): Pt lives alone. He works for [employer]. He states he does not drive and getting to appointments can be difficult. Smoking Status: Current every day smoker Past Alcohol Use History: None Reported Additional Past Alcohol Use History / Comment(s): Pt started smoking about 1989 and is a 2 ppd smoker. Past Drug Use History: None Reported - Past Family History Mother Family Medical History: Diabetes Mellitus Additional Family Medical History / Comment(s): mother is Father Family Medical History: No Reported History Additional Family Medical History / Comment(s): Father is healthy. Medications and Allergies Home Medications Medication Instructions Recorded Confirmed Type Insulin Degludec [Tresiba 70 unit SQ HS 11/16/16 07/09/19 History Flextouch U-200] Omeprazole 40 mg PO HS 12/20/18 07/09/19 History hydrALAZINE HCL [Apresoline] 50 mg PO HS 01/29/19 07/09/19 History Insulin Aspart [NovoLOG Flexpen] 15 units SQ AC-TID 07/09/19 07/09/19 History Lisinopril 40 mg PO DAILY 07/09/19 07/09/19 History Allergies Allergy/AdvReac Type Severity Reaction Status Date / Time No Known Allergies Allergy Verified 07/09/19 14:26 Physical Exam Vitals: Vital Signs Temp Pulse Pulse Resp BP BP Pulse Ox 07/09/19 15:00 97.8 F 95 18 137/83 96 07/09/19 14:48 98 F 98 18 161/97 96 07/09/19 13:48 98 18 161/97 96 07/09/19 11:45 104 H 16 155/86 96 07/09/19 10:52 98 F 124 H 18 134/87 98 Intake and Output 07/09/19 07/09/19 07/09/19 06:59 14:59 22:59 Other: Voiding Method Toilet Weight 99.79 kg 99.79 kg GENERAL DESCRIPTION: Middle-aged male lying in bed, no distress. No tachypnea or accessory muscle of respiration use. HEENT: Shows Pallor , no scleral icterus. Oral mucous membrane is dry. No pharyngeal erythema or thrush NECK: Trachea central, no thyromegaly. LUNGS: Unlabored breathing. Clear to auscultation anteriorly. No wheeze or crackle. HEART: S1, S2, regular rate and rhythm. No loud murmur ABDOMEN: Soft, no tenderness , guarding or rigidity, no organomegaly EXTREMITIES: No edema of feet. SKIN: No rash, no masses palpable. Patient had did have significant wound on the upper back area with significant amount of slough tissue or undermining minimal surrounding redness no foul-smelling drainage NEUROLOGICAL: The patient is awake, alert, oriented x3, mood and affect normal. Results CBC & Chem 7: 07/09/19 11:20 07/09/19 11:20 Labs: Abnormal Lab Results - Last 24 Hours (Table) 07/09/19 07/09/19 07/09/19 Range/Units 11:20 11:20 11:20 WBC 11.9 H (3.8-10.6) k/uL Neutrophils # 9.0 H (1.3-7.7) k/uL VBG pH (7.31-7.41) VBG pCO2 (37-51) mmHg Sodium 132 L (137-145) mmol/L Carbon Dioxide 21 L (22-30) mmol/L BUN 38 H (9-20) mg/dL Creatinine 1.70 H (0.66-1.25) mg/dL Glucose 270 H (74-99) mg/dL POC Glucose (mg/dL) (75-99) mg/dL Plasma Lactic Acid Jcarlos 2.6 H* (0.7-2.0) mmol/L Alkaline Phosphatase 188 H (38-126) U/L 07/09/19 07/09/19 07/09/19 Range/Units 11:20 14:30 16:34 WBC (3.8-10.6) k/uL Neutrophils # (1.3-7.7) k/uL VBG pH 7.46 H (7.31-7.41) VBG pCO2 34 L (37-51) mmHg Sodium (137-145) mmol/L Carbon Dioxide (22-30) mmol/L BUN (9-20) mg/dL Creatinine (0.66-1.25) mg/dL Glucose (74-99) mg/dL POC Glucose (mg/dL) 186 H 226 H (75-99) mg/dL Plasma Lactic Acid Jcarlos (0.7-2.0) mmol/L Alkaline Phosphatase (38-126) U/L Microbiology - Last 24 Hours (Table) 07/09/19 11:50 Wound Culture - Preliminary Back Assessment and Plan Assessment: 1-patient with upper back wound in this patient who did have a history of melanoma status post resection followed by surgery. Patient currently removal of the lymph node now with dehiscence of his wound and concern for secondary cellulitis, patient did have significant slough tissue at the base of the wound as it has been suggestive possible abscess will need to cover for both gram- positive skin anu as well as gram-negative pathogen (1) Abscess or cellulitis of back Current Visit: Yes Status: Acute Code(s): [id number] - SNOMED Code(s): 146341965 Plan: 1- recommend Gen. surgery evaluation and possible debridement of this wound and drainage of any abscess and deep cultures 2-local wound care for now with carmelo followed by moist dressing to be changed daily 3-Vancomycin pharmacy to dose target trough of 15 while watching his kidney function and Vanco trough closely 4-discontinue Zosyn and start to cefepime 2 g every 12 hours We will follow on clinical condition and cultures to further adjust medication if needed Thank you for this consultation will follow this patient with you Time with Patient: Greater than 30
[2019-07-10] MEDS: VANCOMYCIN 1,750 MG in SODIUM CHLORIDE 0.9% 500 ML 500 ML IVPB SCH ×2 (04:37→22:34)
[2019-07-10] MEDS: SODIUM CHLORIDE 0.9% 1,000 ML IV SCH ×2 (04:37→21:33)
[2019-07-10 06:14] LABS: Glucose,Whole Blood 39 mg/dL (75-99)
[2019-07-10 06:27] LABS: Glucose,Whole Blood 78 mg/dL (75-99)
[2019-07-10 06:52] LABS: Glucose,Whole Blood 112 mg/dL (75-99)
[2019-07-10] MEDS: INSULIN ASPART (NovoLOG) 100 UNIT/ML VIAL SQ SCH ×8 (07:27→22:59)
[2019-07-10] MEDS: LISINOPRIL 20 MG TAB PO SCH (09:25)
[2019-07-10] MEDS: CEFEPIME 2 GM in SODIUM CHLORIDE 0.9% 100 ML IVPB SCH ×2 (09:25→21:33)
[2019-07-10 11:49] LABS: Glucose,Whole Blood 305 mg/dL (75-99)
--- NOTE | 2019-07-10 13:54 | P.GSCN ---
History of Present Illness Consult date: 07/10/19 Reason for Consult: Back abscess Requesting physician: Cristi Mary History of present illness: CHIEF COMPLAINT: Back abscess HISTORY OF PRESENT ILLNESS: 48-year-old male who reports a history of melanoma on his back and [facility] He reports he was doing well postoperatively until Tuesday when his incision opened up and started draining purulent fluid. PAST MEDICAL HISTORY: See list. PAST SURGICAL HISTORY: See list. SOCIAL HISTORY: No illicit drug use. REVIEW OF SYSTEMS: CONSTITUTIONAL: Denies fever or chills. HEENT: Denies blurred vision, vision changes, or eye pain. Denies hemoptysis CARDIOVASCULAR: Denies chest pain or pressure. RESPIRATORY: No shortness of breath. GASTROINTESTINAL: Refer to HPI for pertinent findings HEMATOLOGIC: Denies bleeding disorders. GENITOURINARY: Denies any blood in urine. SKIN: Denies pruitis. Denies rash. Reports wound to his back. PHYSICAL EXAM: VITAL SIGNS: Reviewed. GENERAL: Well-developed in no acute distress. HEENT: No sclera icterus. Extraocular movements grossly intact. Moist buccal mucosa. Head is atraumatic, normocephalic. ABDOMEN: Soft. Nondistended. Nontender. NEUROLOGIC: Alert and oriented. Cranial nerves II through XII grossly intact. BACK: Open wound to upper mid back with seropurulent drainage. LABORATORY DATA: WBC 11.9. Hemoglobin 16.2. Platelet count 332. IMAGING: CT chest: Open wound upper back with internal foci of air consistent with abscess. Surrounding cellulitis. No bone destruction. ASSESSMENT: 1. Upper back wound with cellulitis, s/p removal of melanoma and lymph node PLAN: Patient evaluated by Dr. Iqbal. No surgical intervention recommended. Continue local wound care per infectious disease recommendations. Patient may be discharged home from a surgical standpoint. Dr. Iqbal recommends patient follow-up in the wound care center post discharge. Nurse practitioner note has been reviewed by physician. Signing provider agrees with the documented findings, assessment, and plan of care. Past Medical History Past Medical History: Diabetes Mellitus, GERD/Reflux, Renal Disease Additional Past Medical History / Comment(s): IDDM type II, diabetic neuropathy bilateral feet, DKA, renal insufficiency, hypercalemia, past perianal abscess/fistula with surgery, BPH/urinary retention with surgery, UTI. History of Any Multi-Drug Resistant Organisms: None Reported Past Surgical History: No Surgical Hx Reported Additional Past Surgical History / Comment(s): 08/2014 cystoscopy with TURP, rectal exam/I&D/fistulotomy. I&D back Past Anesthesia/Blood Transfusion Reactions: No Reported Reaction Past Psychological History: No Psychological Hx Reported Additional Psychological History / Comment(s): Pt lives alone. He works for [employer]. He states he does not drive and getting to appointments can be difficult. Smoking Status: Current every day smoker Past Alcohol Use History: None Reported Additional Past Alcohol Use History / Comment(s): Pt started smoking about 1989 and is a 2 ppd smoker. Past Drug Use History: None Reported - Past Family History Mother Family Medical History: Diabetes Mellitus Additional Family Medical History / Comment(s): mother is Father Family Medical History: No Reported History Additional Family Medical History / Comment(s): Father is healthy. Medications and Allergies Home Medications Medication Instructions Recorded Confirmed Type Insulin Degludec [Tresiba 70 unit SQ HS 11/16/16 07/09/19 History Flextouch U-200] Omeprazole 40 mg PO HS 12/20/18 07/09/19 History hydrALAZINE HCL [Apresoline] 50 mg PO HS 01/29/19 07/09/19 History Insulin Aspart [NovoLOG Flexpen] 15 units SQ AC-TID 07/09/19 07/09/19 History Lisinopril 40 mg PO DAILY 07/09/19 07/09/19 History Allergies Allergy/AdvReac Type Severity Reaction Status Date / Time No Known Allergies Allergy Verified 07/09/19 14:26 Surgical - Exam Vital Signs Temp Pulse Resp BP Pulse Ox 98 F 124 H 18 134/87 98 07/09/19 10:52 07/09/19 10:52 07/09/19 10:52 07/09/19 10:52 07/09/19 10:52 Results - Labs 07/09/19 11:20 07/10/19 07:15 Abnormal Lab Results - Last 24 Hours (Table) 07/09/19 07/09/19 07/09/19 Range/Units 14:30 16:34 21:10 Creatinine (0.66-1.25) mg/dL POC Glucose (mg/dL) 186 H 226 H 391 H (75-99) mg/dL 07/10/19 07/10/19 07/10/19 Range/Units 06:08 06:50 07:15 Creatinine 1.53 H (0.66-1.25) mg/dL POC Glucose (mg/dL) 39 L 112 H (75-99) mg/dL 07/10/19 Range/Units 11:46 Creatinine (0.66-1.25) mg/dL POC Glucose (mg/dL) 305 H (75-99) mg/dL Microbiology - Last 24 Hours (Table) 07/09/19 11:50 Gram Stain - Preliminary Back Wound Culture - Preliminary Diabetes panel 07/10/19 Range/Units 07:15 Creatinine 1.53 H (0.66-1.25) mg/dL Pituitary panel 07/10/19 Range/Units 07:15 Creatinine 1.53 H (0.66-1.25) mg/dL Adrenal panel 07/10/19 Range/Units 07:15 Creatinine 1.53 H (0.66-1.25) mg/dL
[2019-07-10] MEDS: NICOTINE 21MG/24HR PATCH TRANSDERM SCH (14:07)
--- NOTE | 2019-07-10 15:22 | PN ---
PROGRESS NOTE DATE OF SERVICE: 07/10/2019 REASON FOR FOLLOWUP: Upper back wound and cellulitis. INTERVAL HISTORY: The patient is currently afebrile. The patient overall is feeling better. The patient denies any pain to the upper back wound. Patient denies having any chest pain, shortness of breath. No nausea. No abdominal pain. No diarrhea. The patient has been evaluated by surgery, recommending no surgical drainage. The patient is currently insisting on going home. PHYSICAL EXAMINATION: Blood pressure 160/82 with a pulse of 107, temperature 98.5. He is 98% on room air. General description is a middle-aged male, up in the bed in no distress. Examination of the back did have a wound with less soft tissue, no foul-smelling drainage. LUNGS: Unlabored breathing, clear to auscultation. HEART: S1, S2. Regular rate and rhythm. LABS: Creatinine is 1.53. Wound culture further is showing gram-positive cocci. DIAGNOSTIC IMPRESSION AND PLAN: Patient with upper back wound, postsurgical with secondary cellulitis. The patient is currently covered with vancomycin for which to continue while waiting for the culture to finalize to determine discharge antibiotic, more likely oral. The patient is insisting on going home. He has been told we will have to wait for the cultures to determine his discharge antibiotics. Continue supportive care. Local wound care to continue with Medihoney followed by moist dressing to be changed daily. Follow up with wound clinic on discharge. MMJAXONL / IJN: [id number] /
[2019-07-10 16:51] LABS: Glucose,Whole Blood 163 mg/dL (75-99)
[2019-07-10 20:36] LABS: Glucose,Whole Blood 35 mg/dL (75-99)
[2019-07-10 20:39] LABS: Glucose,Whole Blood 34 mg/dL (75-99)
[2019-07-10 20:54] LABS: Glucose,Whole Blood 37 mg/dL (75-99)
[2019-07-10 21:08] LABS: Glucose,Whole Blood 41 mg/dL (75-99)
[2019-07-10] MEDS ORDERED: GLUCAGON 1 MG/ML VIAL IM STA (21:09)
[2019-07-10 21:27] LABS: Glucose,Whole Blood 76 mg/dL (75-99)
[2019-07-10] MEDS: hydrALAZINE HCL 50 MG TAB PO SCH (21:33)
[2019-07-10] MEDS: PANTOPRAZOLE 40 MG TABLET PO SCH (21:33)
--- NOTE | 2019-07-10 22:15 | P.HPIM ---
History of Present Illness H&P Date: 07/10/19 Chief Complaint: Back wound This is a history and physical on A 48-year-old white male with insulin- dependent diabetes who has been recently diagnosed with malignant melanoma. He was doing quite well after having excision on his back. The patient went back to work and the wound reopened and has now become reinfected. He is admitted for appropriate wound control and possible debridement. Blood sugar has been somewhat labile. Unfortunately, his insurance makes it financially difficult for him to have an insulin pump. Review of Systems Constitutional: Denies chills, Denies fever Eyes: denies blurred vision, denies pain Ears, nose, mouth and throat: Denies headache, Denies sore throat Cardiovascular: Denies chest pain, Denies shortness of breath Respiratory: Denies cough Gastrointestinal: Denies abdominal pain, Denies diarrhea, Denies nausea, Denies vomiting Integumentary: Reports wounds Neurological: Denies numbness, Denies weakness Past Medical History Past Medical History: Diabetes Mellitus, GERD/Reflux, Renal Disease Additional Past Medical History / Comment(s): IDDM type II, diabetic neuropathy bilateral feet, DKA, renal insufficiency, hypercalemia, past perianal abscess /fistula with surgery, BPH/urinary retention with surgery, UTI. History of Any Multi-Drug Resistant Organisms: None Reported Past Surgical History: No Surgical Hx Reported Additional Past Surgical History / Comment(s): 08/2014 cystoscopy with TURP, rectal exam/I&D/fistulotomy. I&D back Past Anesthesia/Blood Transfusion Reactions: No Reported Reaction Past Psychological History: No Psychological Hx Reported Additional Psychological History / Comment(s): Pt lives alone. He works for [employer]. He states he does not drive and getting to appointments can be difficult. Smoking Status: Current every day smoker Past Alcohol Use History: None Reported Additional Past Alcohol Use History / Comment(s): Pt started smoking about 1989 and is a 2 ppd smoker. Past Drug Use History: None Reported - Past Family History Mother Family Medical History: Diabetes Mellitus Additional Family Medical History / Comment(s): mother is Father Family Medical History: No Reported History Additional Family Medical History / Comment(s): Father is healthy. Medications and Allergies Home Medications Medication Instructions Recorded Confirmed Type Insulin Degludec [Tresiba 70 unit SQ HS 11/16/16 07/09/19 History Flextouch U-200] Omeprazole 40 mg PO HS 12/20/18 07/09/19 History hydrALAZINE HCL [Apresoline] 50 mg PO HS 01/29/19 07/09/19 History Insulin Aspart [NovoLOG Flexpen] 15 units SQ AC-TID 07/09/19 07/09/19 History Lisinopril 40 mg PO DAILY 07/09/19 07/09/19 History Allergies Allergy/AdvReac Type Severity Reaction Status Date / Time No Known Allergies Allergy Verified 07/09/19 14:26 Physical Exam Vitals: Vital Signs Temp Pulse Resp BP Pulse Ox 07/10/19 21:30 167/98 07/10/19 20:48 98.1 F 79 14 149/82 98 07/10/19 15:00 98.1 F 76 18 146/60 100 07/10/19 07:00 98.4 F 107 H 16 160/82 98 07/10/19 02:29 98.1 F 84 18 124/76 97 Intake and Output 07/10/19 07/10/19 07/10/19 06:59 14:59 22:59 Intake Total 847 Balance 847 Intake: Intake, IV Titration 367 Amount Cefepime 2 gm In Sodium 100 Chloride 0.9% 100 ml @ 200 mls/hr IVPB Q12HR [facility] Rx#:[id number] Piperacillin-Tazobactam 3 100 .375 gm In Sodium Chloride 0.9% 100 ml @ 25 mls/hr IVPB Q8HR [facility] Rx# :[id number] Sodium Chloride 0.9% 1, 167 000 ml @ 75 mls/hr IV . [id number] [facility] Rx#:[id number] Oral 480 - Constitutional General appearance: no acute distress - EENT Eyes: EOMI - Neck Neck: no lymphadenopathy - Cardiovascular Rhythm: regular Heart sounds: normal: S1, S2 Abnormal Heart Sounds: no S3 Gallop - Gastrointestinal General gastrointestinal: soft, no tenderness - Integumentary Significant back wound about 8 x 5 cm Integumentary: ulcer - Musculoskeletal Musculoskeletal: gait normal Results CBC & Chem 7: 07/09/19 11:20 07/10/19 07:15 Labs: Abnormal Lab Results - Last 24 Hours (Table) 07/10/19 07/10/19 07/10/19 Range/Units 06:08 06:50 07:15 Creatinine 1.53 H (0.66-1.25) mg/dL POC Glucose (mg/dL) 39 L 112 H (75-99) mg/dL 07/10/19 07/10/19 07/10/19 Range/Units 11:46 16:49 20:34 Creatinine (0.66-1.25) mg/dL POC Glucose (mg/dL) 305 H 163 H 35 L (75-99) mg/dL 07/10/19 07/10/19 07/10/19 Range/Units 20:35 20:52 21:06 Creatinine (0.66-1.25) mg/dL POC Glucose (mg/dL) 34 L 37 L 41 L (75-99) mg/dL Microbiology - Last 24 Hours (Table) 07/09/19 11:20 Blood Culture - Preliminary Blood No Growth after 24 hours 07/09/19 11:50 Gram Stain - Preliminary Back Wound Culture - Preliminary Thrombosis Risk Factor Assmnt - Choose All That Apply Each Factor Represents 1 point: Obesity (BMI >25) Thrombosis Risk Factor Assessment Total Risk Factor Score: 1 Thrombosis Risk Factor Assessment Level: Low Risk Assessment and Plan (1) Abscess or cellulitis of back Current Visit: Yes Status: Acute Code(s): RLR7577 - SNOMED Code(s): 022504641 (2) Surgical wound dehiscence Current Visit: Yes Status: Acute Code(s): T81.31XA - DISRUPTION OF EXTERNAL OPERATION (SURGICAL) WOUND, NEC, INIT SNOMED Code(s): 63069004 (3) Chronic kidney disease Current Visit: No Status: Acute Code(s): N18.9 - CHRONIC KIDNEY DISEASE, UNSPECIFIED SNOMED Code(s): 934473280 (4) Diabetes mellitus Current Visit: No Status: Acute Code(s): E11.9 - TYPE 2 DIABETES MELLITUS WITHOUT COMPLICATIONS SNOMED Code(s): 98337988 Plan: Continue wound care. Appreciate multiple consultants input. Continue IV anabolic therapy. Reconcile Home medications. Check CBC in AM. The patient was wanting to go home this Morning, I suggested given the severity of the wound, He should have IV antibiotic treatment and evaluation by general surgery. Time with Patient: Greater than 30
[2019-07-10 22:57] LABS: Glucose,Whole Blood 223 mg/dL (75-99)
[2019-07-10] MEDS: INSULIN DETEMIR (LEVEMIR) 100 UNIT/ML SYR SQ SCH (22:59)
[2019-07-11 06:56] LABS: Glucose,Whole Blood 405 mg/dL (75-99)
[2019-07-11] MEDS: INSULIN ASPART (NovoLOG) 100 UNIT/ML VIAL SQ SCH ×2 (07:30→07:31)
[2019-07-11] MEDS: NICOTINE 21MG/24HR PATCH TRANSDERM SCH (07:31)
[2019-07-11] MEDS: LISINOPRIL 20 MG TAB PO SCH (07:31)
[2019-07-11 08:56] VITALS: BP 130/85; PULSE 111; RESP 12; TEMP 97.8
[2019-07-11] MEDS: CEFEPIME 2 GM in SODIUM CHLORIDE 0.9% 100 ML IVPB SCH (10:41)
[2019-07-11 10:44] LABS: Glucose,Whole Blood 41 mg/dL (75-99)
[2019-07-11 11:04] LABS: Glucose,Whole Blood 134 mg/dL (75-99)
[2019-07-11] MEDS: SODIUM CHLORIDE 0.9% 1,000 ML IV SCH (11:05)
--- NOTE | 2019-07-11 12:22 | PN ---
PROGRESS NOTE DATE OF SERVICE: 07/11/2019 REASON FOR FOLLOW UP: Upper back wound with secondary cellulitis. INTERVAL HISTORY: The patient is currently afebrile, has been breathing comfortably. The patient denies having any chest pain or shortness of breath or cough. No nausea, no vomiting. No pain to the lower back wound area. PHYSICAL EXAMINATION: Blood pressure is 130/85 with a pulse of 111, temperature is 97.8, he is 97% on room air. General description is a middle-aged male lying in bed in no distress. RESPIRATORY SYSTEM: Unlabored breathing, clear to auscultation anteriorly. HEART: S1, S2. Regular rate and rhythm. ABDOMEN: Soft, no tenderness. LABS: Wound cultures have been finalized with MSSA. Blood cultures have been negative. DIAGNOSTIC IMPRESSION AND PLAN: Patient with lower back wound. post surgical wound dehiscence. Culture has been MSSA. CT was suspicious for an abscess. However, has been evaluated by General Surgery and recommended no surgical drainage. The patient's antibiotic will be switched over to Keflex 500 mg p.o. q.6 hours for 10 days. Local wound care with Medihoney followed by moist dressing to be changed daily. Has been instructed to follow up in the Wound Care Center next week as the patient may benefit from wound VAC application. Questions and concerns were answered and prescription was sent to the pharmacy. IRVIN / YUSRA: [id number] /
[2019-07-11] MEDS ORDERED: INSULIN DETEMIR (LEVEMIR) 100 UNIT/ML SYR SQ SCH (21:00)
[2019-07-12] MEDS ORDERED: VANCOMYCIN TROUGH DUE 1 EACH MISC MISCELLANE ONE (04:00)
--- NOTE | 2019-07-15 14:10 | P.DS ---
Providers Date of admission: 07/09/19 14:02 Attending physician: Cristi Mary Consults: 07/09/19 15:25 Consult Physician Routine Consulting Provider: Dayo Sousa Consult Reason/Comments: abscess, open wound Do you want consulting provider notified?: Yes Primary care physician: Cristi Mary - Discharge Diagnosis(es) (1) Abscess or cellulitis of back Status: Acute (2) Surgical wound dehiscence Status: Acute (3) Chronic kidney disease Status: Acute (4) Diabetes mellitus Status: Acute Hospital Course: This is a discharge summary an 48-year-old d done. The patient has been doing well but when he had significant dehiscence after working and he was admitted for appropr necessary from a deep stand point. The patient was then discharged with appropriate antibiotic treatment to follow-up in 3-5 days Patient Condition at Discharge: Fair Plan - Discharge Summary Discharge Rx Participant: No New Discharge Prescriptions: New Cephalexin [Keflex] 500 mg PO Q6HR #40 cap No Action Insulin Degludec [Tresiba Flextouch U-200] 70 unit SQ HS Omeprazole 40 mg PO HS hydrALAZINE HCL [Apresoline] 50 mg PO HS Insulin Aspart [NovoLOG Flexpen] 15 units SQ AC-TID Lisinopril 40 mg PO DAILY Discharge Medication List Insulin Degludec [Tresiba Flextouch U-200] 70 unit SQ HS 11/16/16 [History] Omeprazole 40 mg PO HS 12/20/18 [History] hydrALAZINE HCL [Apresoline] 50 mg PO HS 01/29/19 [History] Insulin Aspart [NovoLOG Flexpen] 15 units SQ AC-TID 07/09/19 [History] Lisinopril 40 mg PO DAILY 07/09/19 [History] Cephalexin [Keflex] 500 mg PO Q6HR #40 cap 07/11/19 [Rx] Follow up Appointment(s)/Referral(s): Cristi Mary MD [Primary Care Provider] - 07/17/19 8:50 am Patient Instructions/Handouts: Wound Dehiscence (DC) Activity/Diet/Wound Care/Special Instructions: Local wound care to the upper back wound with medahoney followed by moist dressing to be changed daily, patient to follow-up with Dr. Sousa in the wound care center next Tuesday or , call [phone] to make an appointment Discharge Disposition: HOME SELF-CARE
== END 2019-07-11 11:55 | disposition home or self-care (01) ==
LOC: EC 10:28 → 4SSUR 14:02
PROVIDERS: ADMIT Family Medicine; ATTEND Family Medicine
DX: T81.31XA Disruption of external operation (surgical) wound, not elsewhere classified, initial encounter (principal); L03.312 Cellulitis of back [any part except buttock and flank]; L08.9 Local infection of the skin and subcutaneous tissue, unspecified; B95.61 Methicillin susceptible Staphylococcus aureus infection as the cause of diseases classified elsewhere; N18.9 Chronic kidney disease, unspecified; E11.22 Type 2 diabetes mellitus with diabetic chronic kidney disease; E11.42 Type 2 diabetes mellitus with diabetic polyneuropathy; C43.59 Malignant melanoma of other part of trunk; K21.9 Gastro-esophageal reflux disease without esophagitis; E83.52 Hypercalcemia; N40.1 Benign prostatic hyperplasia with lower urinary tract symptoms; R33.8 Other retention of urine; F17.210 Nicotine dependence, cigarettes, uncomplicated; Z79.4 Long term (current) use of insulin; Z79.899 Other long term (current) drug therapy; Z86.39 Personal history of other endocrine, nutritional and metabolic disease; Z86.19 Personal history of other infectious and parasitic diseases; Z98.890 Other specified postprocedural states; Z87.440 Personal history of urinary (tract) infections; Z83.3 Family history of diabetes mellitus
CPT/HCPCS: 96361 ×4; 96366 ×3; 96367 ×2; 96365; 99284; 36415; 80053; 82565 ×2; 82803; 83605; 85025; 87040; 87070; 87205; 87077; 87186; 71250; G0378 ×3; S4990 ×2; J2543; J3370 ×2; J0692

== ENCOUNTER 2020-03-26 08:36 | Emergency (ER) | payer OTHER ==
[2020-03-26 08:43] LABS: Glucose,Whole Blood 124 mg/dL (75-99)
[2020-03-26 08:45] VITALS: BP 169/103; PULSE 101; RESP 18; TEMP 98.2
--- NOTE | 2020-03-26 08:55 | ED ---
General Adult HPI - General Chief complaint: Recheck/Abnormal Lab/Rx Stated complaint: hypoglycemia Time Seen by Provider: 03/26/20 08:45 Source: patient, RN notes reviewed Mode of arrival: EMS Limitations: no limitations - History of Present Illness Initial comments: Patient is a pleasant 49-year-old male presenting to the emergency department with concerns for low blood sugar. Patient was found acting abnormal outside and rolling on the ground. Patient reportedly had low blood sugar. Patient was given glucose and leg sugar improved. Blood sugar on arrival 124. Patient states he feels fine at this time and has no complaints. Patient states he does have a history of similar symptoms previously associated with hypoglycemia multiple times. Patient has no confusion and otherwise no complaints. Patient does not recall if he ate anything today or last night. No fever or concern for infection. No trauma. - Related Data Home Medications Medication Instructions Recorded Confirmed Insulin Degludec [Tresiba 70 unit SQ HS 11/16/16 07/09/19 Flextouch U-200] Omeprazole 40 mg PO HS 12/20/18 07/09/19 hydrALAZINE HCL [Apresoline] 50 mg PO HS 01/29/19 07/09/19 Insulin Aspart [NovoLOG Flexpen] 15 units SQ AC-TID 07/09/19 07/09/19 lisinopriL 40 mg PO DAILY 07/09/19 07/09/19 Previous Rx's Medication Instructions Recorded Cephalexin [Keflex] 500 mg PO Q6HR #40 cap 07/11/19 Allergies Allergy/AdvReac Type Severity Reaction Status Date / Time No Known Allergies Allergy Verified 03/26/20 08:45 Review of Systems ROS Statement: Those systems with pertinent positive or pertinent negative responses have been documented in the HPI. ROS Other: All systems not noted in ROS Statement are negative. Constitutional: Denies: fever, chills Eyes: Denies: eye pain ENT: Denies: ear pain Respiratory: Denies: dyspnea Cardiovascular: Denies: chest pain Endocrine: Denies: fatigue Gastrointestinal: Denies: abdominal pain Genitourinary: Denies: dysuria Musculoskeletal: Denies: back pain Skin: Denies: rash Neurological: Denies: headache, weakness Past Medical History Past Medical History: Diabetes Mellitus, GERD/Reflux, Renal Disease Additional Past Medical History / Comment(s): IDDM type II, diabetic neuropathy bilateral feet, DKA, renal insufficiency, hypercalemia, past perianal abscess/fistula with surgery, BPH/urinary retention with surgery, UTI. History of Any Multi-Drug Resistant Organisms: None Reported Past Surgical History: No Surgical Hx Reported Additional Past Surgical History / Comment(s): 08/2014 cystoscopy with TURP, rectal exam/I&D/fistulotomy. I&D back Past Anesthesia/Blood Transfusion Reactions: No Reported Reaction Past Psychological History: No Psychological Hx Reported Smoking Status: Current every day smoker Past Alcohol Use History: None Reported Past Drug Use History: None Reported - Past Family History Mother Family Medical History: Diabetes Mellitus Additional Family Medical History / Comment(s): mother is Father Family Medical History: No Reported History Additional Family Medical History / Comment(s): Father is healthy. General Exam Limitations: no limitations General appearance: alert, in no apparent distress Head exam: Present: atraumatic, normocephalic Eye exam: Present: normal appearance, PERRL, EOMI. Absent: nystagmus ENT exam: Present: normal oropharynx Neck exam: Present: normal inspection. Absent: tenderness, meningismus Respiratory exam: Present: normal lung sounds bilaterally Cardiovascular Exam: Present: regular rate, normal rhythm GI/Abdominal exam: Present: soft. Absent: tenderness Extremities exam: Present: normal inspection, full ROM. Absent: tenderness Neurological exam: Present: alert, oriented X3, CN II-XII intact. Absent: motor sensory deficit Expanded Neurological exam: Present: protecting the airway Patient oriented to: Present: person, place, time Speech: Present: fluid speech Cranial nerves: EOM's Intact: Normal Motor strength exam: RUE: 5, LUE: 5, RLE: 5, LLE: 5 Eye Response: (4) open spontaneously Motor Response: (6) obeys commands Verbal Response: (5) oriented Psychiatric exam: Present: normal affect, normal mood Skin exam: Present: normal color Course Vital Signs 03/26/20 08:43 Temperature 98.2 F Pulse Rate 101 H Respiratory 18 Rate Blood Pressure 169/103 O2 Sat by Pulse 99 Oximetry Medical Decision Making - Medical Decision Making Patient refuses further care and left AGAINST MEDICAL ADVICE. Patient was alert and oriented with blood sugar of 124. Nursing staff did notice steady gait. Patient did not wait to be reevaluated. - Lab Data Result diagrams: 03/26/20 08:56 Lab Results 03/26/20 03/26/20 Range/Units 08:42 08:56 WBC 8.9 (3.8-10.6) k/uL RBC 5.48 (4.30-5.90) m/uL Hgb 15.3 (13.0-17.5) gm/dL Hct 46.1 (39.0-53.0) % MCV 84.1 (80.0-100.0) fL MCH 27.9 (25.0-35.0) pg MCHC 33.2 (31.0-37.0) g/dL RDW 12.9 (11.5-15.5) % Plt Count 265 (150-450) k/uL MPV 7.8 Neutrophils % 79 % Lymphocytes % 10 % Monocytes % 6 % Eosinophils % 3 % Basophils % 1 % Neutrophils # 7.0 (1.3-7.7) k/uL Lymphocytes # 0.9 L (1.0-4.8) k/uL Monocytes # 0.5 (0-1.0) k/uL Eosinophils # 0.3 (0-0.7) k/uL Basophils # 0.0 (0-0.2) k/uL POC Glucose (mg/dL) 124 H (75-99) mg/dL POC Glu Senior Scheduler ID - Radiology Data Radiology results: image reviewed Disposition Clinical Impression: Hypoglycemia Disposition: Left Against Medical Advice Condition: Good Is patient prescribed a controlled substance at d/c from ED?: No Referrals: Cristi Mary MD [Primary Care Provider] - 1-2 days
[2020-03-26 09:15] LABS: Basophils % (A) 1 %; Eosinophils # (A) 0.3 k/uL (0-0.7); Eosinophils % (A) 3 %; HCT 46.1 % (39.0-53.0); HGB 15.3 gm/dL (13.0-17.5); Lymphocytes # (A) 0.9 k/uL (1.0-4.8); Lymphocytes % (A) 10 %; MCH 27.9 pg (25.0-35.0); MCHC 33.2 g/dL (31.0-37.0); MCV 84.1 fL (80.0-100.0); Mean Platelet Volume 7.8; Monocytes # (A) 0.5 k/uL (0-1.0); Monocytes % (A) 6 %; Neutrophils % (A) 79 %; Platelet Count 265 k/uL (150-450); RBC 5.48 m/uL (4.30-5.90); RDW 12.9 % (11.5-15.5); WBC 8.9 k/uL (3.8-10.6)
[2020-03-26 09:21] LABS: INR 0.9 (<1.2); Partial Thromboplastin Time 24.6 sec (22.0-30.0); Prothrombin Time 9.5 sec (9.0-12.0)
--- NOTE | 2020-03-26 09:22 | XR ---
EXAMINATION TYPE: XR chest 2V DATE OF EXAM: 03/26/2020 COMPARISON: 09/30/2018 HISTORY: 49-year-old male hypoglycemia TECHNIQUE: PA and lateral views FINDINGS: Heart normal size. Aorta and pulmonary vasculature within normal limits. Some mild strandy atelectasi s in the lower lungs. Some central peribronchial cuffing is noted. No consolidation or pleural effusi on. IMPRESSION: Chronic-appearing changes, possible chronic bronchitis or asthma. Some strandy basilar atelectasis. O therwise, no acute process seen.
[2020-03-26 09:41] LABS: Albumin 3.1 g/dL (3.5-5.0); Calcium 8.5 mg/dL (8.4-10.2); Potassium 3.9 mmol/L (3.5-5.1); Total Bilirubin 0.4 mg/dL (0.2-1.3); Total Protein 5.8 g/dL (6.3-8.2)
== END 2020-03-26 09:15 | disposition left against medical advice (07) ==
LOC: EC 08:36
DX: E11.649 Type 2 diabetes mellitus with hypoglycemia without coma (principal); E11.42 Type 2 diabetes mellitus with diabetic polyneuropathy; Z53.29 Procedure and treatment not carried out because of patient's decision for other reasons; K21.9 Gastro-esophageal reflux disease without esophagitis; F17.200 Nicotine dependence, unspecified, uncomplicated; Z79.4 Long term (current) use of insulin; Z79.899 Other long term (current) drug therapy
CPT/HCPCS: 36415; 71046; 80053; 84484; 85025; 85610; 85730; 99285

== ENCOUNTER 2020-05-31 12:49 | Emergency (ER) | payer OTHER ==
[2020-05-31 13:01] LABS: Glucose,Whole Blood 47 mg/dL (75-99)
[2020-05-31] MEDS ORDERED: DEXTROSE 50% SYRINGE 50 ML IVP STA (13:02)
--- NOTE | 2020-05-31 13:04 | ED ---
General Adult HPI - General Chief complaint: Recheck/Abnormal Lab/Rx Stated complaint: Hypoglycemia Time Seen by Provider: 05/31/20 12:59 Source: patient, RN notes reviewed Mode of arrival: ambulatory Limitations: no limitations - History of Present Illness Initial comments: Patient is a pleasant 49-year-old male presenting to the emergency department w ith concerns of low blood sugar. Patient states he just notes that sugar is low. Patient complains of feeling fatigued. Patient does take insulin. No recent change in diet. No recent illness. No chest pain. Patient states he does get symptoms like this approximately once per month. - Related Data Home Medications Medication Instructions Recorded Confirmed Insulin Degludec [Tresiba 70 unit SQ HS 11/16/16 07/09/19 Flextouch U-200] Omeprazole 40 mg PO HS 12/20/18 07/09/19 hydrALAZINE HCL [Apresoline] 50 mg PO HS 01/29/19 07/09/19 Insulin Aspart [NovoLOG Flexpen] 15 units SQ AC-TID 07/09/19 07/09/19 lisinopriL 40 mg PO DAILY 07/09/19 07/09/19 Previous Rx's Medication Instructions Recorded Cephalexin [Keflex] 500 mg PO Q6HR #40 cap 07/11/19 Allergies Allergy/AdvReac Type Severity Reaction Status Date / Time No Known Allergies Allergy Verified 05/31/20 12:56 Review of Systems ROS Statement: Those systems with pertinent positive or pertinent negative responses have been documented in the HPI. ROS Other: All systems not noted in ROS Statement are negative. Constitutional: Denies: fever Eyes: Denies: eye pain ENT: Denies: ear pain Respiratory: Denies: cough Cardiovascular: Denies: chest pain Endocrine: Reports: fatigue Gastrointestinal: Denies: abdominal pain Genitourinary: Denies: dysuria Musculoskeletal: Denies: back pain Skin: Denies: rash Neurological: Denies: weakness Past Medical History Past Medical History: Diabetes Mellitus, GERD/Reflux, Renal Disease Additional Past Medical History / Comment(s): IDDM type II, diabetic neuropathy bilateral feet, DKA, renal insufficiency, hypercalemia, past perianal abscess/fistula with surgery, BPH/urinary retention with surgery, UTI. History of Any Multi-Drug Resistant Organisms: None Reported Past Surgical History: No Surgical Hx Reported Additional Past Surgical History / Comment(s): 08/2014 cystoscopy with TURP, rectal exam/I&D/fistulotomy. I&D back Past Anesthesia/Blood Transfusion Reactions: No Reported Reaction Past Psychological History: No Psychological Hx Reported Smoking Status: Current every day smoker Past Alcohol Use History: None Reported Past Drug Use History: None Reported - Past Family History Mother Family Medical History: Diabetes Mellitus Additional Family Medical History / Comment(s): mother is Father Family Medical History: No Reported History Additional Family Medical History / Comment(s): Father is healthy. General Exam Limitations: no limitations General appearance: in no apparent distress, other (Patient does appear a little drowsy) Head exam: Present: atraumatic, normocephalic Eye exam: Present: normal appearance, PERRL, EOMI ENT exam: Present: normal oropharynx Neck exam: Present: normal inspection Respiratory exam: Present: normal lung sounds bilaterally Cardiovascular Exam: Present: regular rate, normal rhythm GI/Abdominal exam: Present: soft. Absent: tenderness Extremities exam: Present: normal inspection Neurological exam: Present: oriented X3, CN II-XII intact, other (Slightly drowsy). Absent: motor sensory deficit Psychiatric exam: Present: normal affect, normal mood Skin exam: Present: normal color Course Vital Signs 05/31/20 05/31/20 12:53 13:24 Temperature 98.5 F Pulse Rate 107 H 102 H Respiratory 20 18 Rate Blood Pressure 158/95 165/72 O2 Sat by Pulse 99 99 Oximetry - Reevaluation(s) Reevaluation #1: 05/31/20 13:54 Patient reevaluated. Patient sleeping but easily arousable to voice. Patient states he feels much better. Patient is acting appropriately and alert. Blood pressure improved. Blood sugar will be checked prior to discharge. Patient states he does feel that her and like to go home. Medical Decision Making - Medical Decision Making Patient reevaluated and feeling much better. Patient requesting discharge. Patient states this does occur to him very frequently, approximately monthly. Blood sugar and blood pressure have improved. Patient states he does take his blood pressure medication in the afternoon and will do this - Lab Data Lab Results 05/31/20 05/31/20 05/31/20 Range/Units 12:52 13:23 14:08 POC Glucose (mg/dL) 47 L 175 H 254 H (75-99) mg/dL POC Glu Stereo Equipment Salesperson ID Oziel Adkins Disposition Clinical Impression: Hypoglycemia Disposition: HOME SELF-CARE Condition: Stable Instructions (If sedation given, give patient instructions): Hypoglycemia in a Person with Diabetes (ED) Additional Instructions: Please follow-up with primary care physician Tuesday. Decrease insulin dosing by 25% until that time. Return for low blood sugar, confusion, weakness, illness, worsening symptoms or other concerns. Is patient prescribed a controlled substance at d/c from ED?: No Referrals: Cristi Mary MD [Primary Care Provider] - 1-2 days Time of Disposition: 14:11
[2020-05-31 13:25] LABS: Glucose,Whole Blood 175 mg/dL (75-99)
[2020-05-31 14:10] LABS: Glucose,Whole Blood 254 mg/dL (75-99)
[2020-05-31 14:22] VITALS: BP 165/89; PULSE 72; RESP 20; TEMP 98
== END 2020-05-31 14:22 | disposition home or self-care (01) ==
LOC: EC 12:49
DX: E11.649 Type 2 diabetes mellitus with hypoglycemia without coma (principal); F17.200 Nicotine dependence, unspecified, uncomplicated; E11.40 Type 2 diabetes mellitus with diabetic neuropathy, unspecified; K21.9 Gastro-esophageal reflux disease without esophagitis; Z79.4 Long term (current) use of insulin; Z79.899 Other long term (current) drug therapy
CPT/HCPCS: 36415; 96374; 99284

== ENCOUNTER 2020-07-08 12:58 | Emergency (ER) | payer OTHER ==
[2020-07-08 13:40] LABS: Glucose,Whole Blood 340 mg/dL (75-99)
[2020-07-08] MEDS ORDERED: SODIUM CHLORIDE 0.9% 1,000 ML IV STA ×2 (14:15→15:45)
[2020-07-08] MEDS ORDERED: ONDANSETRON 4 MG/2 ML VIAL IVP STA (14:22)
--- NOTE | 2020-07-08 14:23 | ED ---
Recheck HPI - General Chief Complaint: Recheck/Abnormal Lab/Rx Stated Complaint: hypoglycemia Time Seen by Provider: 07/08/20 14:01 Source: patient, RN notes reviewed Mode of arrival: wheelchair Limitations: no limitations - History of Present Illness Initial Comments: Patient is a 49-year-old male that presents by from complaining of a fainting spell, that he treats to a low blood sugar. In the ER today on Accu-Chek his blood sugar was 300 form. He did not that his sugars usually run around 200 250. He was in no apparent distress or pain while sitting in his chair during interview exam. Patient was in short words answered questions minimally it was a poor historian. He did note that he takes all his medications as prescribed. He stated that he was mildly nauseous but has not vomited has no issue with diarrhea constipation fever fatigue chills. - Related Data Home Medications Medication Instructions Recorded Confirmed Insulin Degludec [Tresiba 70 unit SQ HS 11/16/16 05/31/20 Flextouch U-200] Omeprazole 40 mg PO HS 12/20/18 05/31/20 hydrALAZINE HCL [Apresoline] 50 mg PO HS 01/29/19 05/31/20 Insulin Aspart [NovoLOG Flexpen] 15 units SQ AC-TID 07/09/19 05/31/20 lisinopriL 40 mg PO DAILY 07/09/19 05/31/20 Previous Rx's Medication Instructions Recorded Cephalexin [Keflex] 500 mg PO Q6HR #40 cap 07/11/19 Allergies Allergy/AdvReac Type Severity Reaction Status Date / Time No Known Allergies Allergy Verified 07/08/20 13:30 Review of Systems ROS Statement: Those systems with pertinent positive or pertinent negative responses have been documented in the HPI. ROS Other: All systems not noted in ROS Statement are negative. Past Medical History Past Medical History: Diabetes Mellitus, GERD/Reflux, Renal Disease Additional Past Medical History / Comment(s): IDDM type II, diabetic neuropathy bilateral feet, DKA, renal insufficiency, hypercalemia, past perianal abscess/fistula with surgery, BPH/urinary retention with surgery, UTI. History of Any Multi-Drug Resistant Organisms: None Reported Past Surgical History: No Surgical Hx Reported Additional Past Surgical History / Comment(s): 08/2014 cystoscopy with TURP, rectal exam/I&D/fistulotomy. I&D back Past Anesthesia/Blood Transfusion Reactions: No Reported Reaction Past Psychological History: No Psychological Hx Reported Smoking Status: Current every day smoker Past Alcohol Use History: None Reported Past Drug Use History: None Reported - Past Family History Mother Family Medical History: Diabetes Mellitus Additional Family Medical History / Comment(s): mother is Father Family Medical History: No Reported History Additional Family Medical History / Comment(s): Father is healthy. General Exam Limitations: no limitations General appearance: alert, in no apparent distress Head exam: Present: atraumatic, normocephalic, normal inspection Eye exam: Present: normal appearance, PERRL, EOMI. Absent: scleral icterus, conjunctival injection, periorbital swelling ENT exam: Present: normal exam, mucous membranes moist Neck exam: Present: normal inspection. Absent: tenderness, meningismus, lymphadenopathy Respiratory exam: Present: normal lung sounds bilaterally. Absent: respiratory distress, wheezes, rales, rhonchi, stridor Cardiovascular Exam: Present: regular rate, normal rhythm, normal heart sounds. Absent: systolic murmur, diastolic murmur, rubs, gallop, clicks GI/Abdominal exam: Present: soft, normal bowel sounds. Absent: distended, tenderness, guarding, rebound, rigid Extremities exam: Present: normal inspection, full ROM, normal capillary refill. Absent: tenderness, pedal edema, joint swelling, calf tenderness Neurological exam: Present: alert, oriented X3, CN II-XII intact Psychiatric exam: Present: normal mood, flat affect Skin exam: Present: warm, dry, intact, normal color. Absent: rash Course Vital Signs 07/08/20 07/08/20 07/08/20 13:31 15:18 17:24 Temperature 98.2 F 98.9 F Pulse Rate 119 H 105 H 96 Respiratory 16 18 18 Rate Blood Pressure 158/100 142/85 127/78 O2 Sat by Pulse 98 97 98 Oximetry Medical Decision Making - Medical Decision Making 49-year-old male complaining of a fainting episode, treated to low blood sugar. Labs, 1 L normal saline bolus, 4 mg of Zofran ordered Labs White blood cells 14.6, creatinine 2.88, BUN 37 Urine 3+ protein and 2+ glucose. 1 more liter of normal saline, 7 units of NovoLog ordered due to blood sugar being 412. - Lab Data Result diagrams: 07/08/20 14:45 07/08/20 14:45 Lab Results 07/08/20 07/08/20 07/08/20 Range/Units 13:39 14:45 14:45 WBC 14.6 H (3.8-10.6) k/uL RBC 5.51 (4.30-5.90) m/uL Hgb 15.7 (13.0-17.5) gm/dL Hct 46.9 (39.0-53.0) % MCV 85.2 (80.0-100.0) fL MCH 28.5 (25.0-35.0) pg MCHC 33.5 (31.0-37.0) g/dL RDW 12.9 (11.5-15.5) % Plt Count 374 (150-450) k/uL MPV 7.1 Neutrophils % 84 % Lymphocytes % 7 % Monocytes % 6 % Eosinophils % 2 % Basophils % 1 % Neutrophils # 12.3 H (1.3-7.7) k/uL Lymphocytes # 1.1 (1.0-4.8) k/uL Monocytes # 0.8 (0-1.0) k/uL Eosinophils # 0.2 (0-0.7) k/uL Basophils # 0.1 (0-0.2) k/uL Sodium (137-145) mmol/L Potassium (3.5-5.1) mmol/L Chloride (98-107) mmol/L Carbon Dioxide (22-30) mmol/L Anion Gap mmol/L BUN (9-20) mg/dL Creatinine (0.66-1.25) mg/dL Est GFR (CKD-EPI)AfAm (>60 ml/min/1.73 sqM) Est GFR (CKD-EPI)NonAf (>60 ml/min/1.73 sqM) Glucose (74-99) mg/dL POC Glucose (mg/dL) 340 H (75-99) mg/dL POC Glu X Ray Equipment Mechanic ID Tierney Lawrence Calcium (8.4-10.2) mg/dL Total Bilirubin (0.2-1.3) mg/dL AST (17-59) U/L ALT (4-49) U/L Alkaline Phosphatase (38-126) U/L Total Protein (6.3-8.2) g/dL Albumin (3.5-5.0) g/dL Urine Color Yellow Urine Appearance Clear (Clear) Urine pH 6.0 (5.0-8.0) Ur Specific Webster 1.010 (1.001-1.035) Urine Protein 3+ H (Negative) Urine Glucose (UA) 2+ H (Negative) Urine Ketones Negative (Negative) Urine Blood Negative (Negative) Urine Nitrite Negative (Negative) Urine Bilirubin Negative (Negative) Urine Urobilinogen <2.0 (<2.0) mg/dL Ur Leukocyte Esterase Negative (Negative) Urine RBC 1 (0-5) /hpf Urine WBC 4 (0-5) /hpf Urine Bacteria Rare H (None) /hpf Urine Mucus Rare H (None) /hpf 07/08/20 07/08/20 Range/Units 14:45 17:15 WBC (3.8-10.6) k/uL RBC (4.30-5.90) m/uL Hgb (13.0-17.5) gm/dL Hct (39.0-53.0) % MCV (80.0-100.0) fL MCH (25.0-35.0) pg MCHC (31.0-37.0) g/dL RDW (11.5-15.5) % Plt Count (150-450) k/uL MPV Neutrophils % % Lymphocytes % % Monocytes % % Eosinophils % % Basophils % % Neutrophils # (1.3-7.7) k/uL Lymphocytes # (1.0-4.8) k/uL Monocytes # (0-1.0) k/uL Eosinophils # (0-0.7) k/uL Basophils # (0-0.2) k/uL Sodium 134 L (137-145) mmol/L Potassium 6.0 H (3.5-5.1) mmol/L Chloride 101 (98-107) mmol/L Carbon Dioxide 25 (22-30) mmol/L Anion Gap 8 mmol/L BUN 37 H (9-20) mg/dL Creatinine 2.88 H (0.66-1.25) mg/dL Est GFR (CKD-EPI)AfAm 28 (>60 ml/min/1.73 sqM) Est GFR (CKD-EPI)NonAf 24 (>60 ml/min/1.73 sqM) Glucose 412 H (74-99) mg/dL POC Glucose (mg/dL) 280 H (75-99) mg/dL POC Glu X Ray Equipment Mechanic ID Maryam Saunders Calcium 9.1 (8.4-10.2) mg/dL Total Bilirubin 0.6 (0.2-1.3) mg/dL AST 18 (17-59) U/L ALT 13 (4-49) U/L Alkaline Phosphatase 189 H (38-126) U/L Total Protein 6.4 (6.3-8.2) g/dL Albumin 3.7 (3.5-5.0) g/dL Urine Color Urine Appearance (Clear) Urine pH (5.0-8.0) Ur Specific Webster (1.001-1.035) Urine Protein (Negative) Urine Glucose (UA) (Negative) Urine Ketones (Negative) Urine Blood (Negative) Urine Nitrite (Negative) Urine Bilirubin (Negative) Urine Urobilinogen (<2.0) mg/dL Ur Leukocyte Esterase (Negative) Urine RBC (0-5) /hpf Urine WBC (0-5) /hpf Urine Bacteria (None) /hpf Urine Mucus (None) /hpf - EKG Data -: EKG Interpreted by Tn EKG shows normal: sinus rhythm Rate: tachycardia EKG Comments: Ventricular rate 109 bpm, KS interval 142 ms, QRS duration 80 ms, QT/QTC 326/139 middles seconds, PT axes 57/56/16. Sinus tachycardia, otherwise normal ECG. Disposition Clinical Impression: Noncompliance, Hyperglycemia Disposition: HOME SELF-CARE Condition: Stable Instructions (If sedation given, give patient instructions): Diabetic Hyperglycemia (ED) Additional Instructions: Please return to the Emergency Department if symptoms worsen or any other concerns. Follow-up with primary care 1-2 days. To discuss diabetic management. Continue to take Advil medication as prescribed, increase oral fluid intake. Is patient prescribed a controlled substance at d/c from ED?: No Referrals: Cristi Mary MD [Primary Care Provider] - 1-2 days Time of Disposition: 17:35
[2020-07-08 14:55] LABS: Basophils # (A) 0.1 k/uL (0-0.2); Basophils % (A) 1 %; Eosinophils # (A) 0.2 k/uL (0-0.7); Eosinophils % (A) 2 %; HCT 46.9 % (39.0-53.0); HGB 15.7 gm/dL (13.0-17.5); Lymphocytes # (A) 1.1 k/uL (1.0-4.8); Lymphocytes % (A) 7 %; MCH 28.5 pg (25.0-35.0); MCHC 33.5 g/dL (31.0-37.0); MCV 85.2 fL (80.0-100.0); Mean Platelet Volume 7.1; Monocytes # (A) 0.8 k/uL (0-1.0); Monocytes % (A) 6 %; Neutrophils # (A) 12.3 k/uL (1.3-7.7); Neutrophils % (A) 84 %; Platelet Count 374 k/uL (150-450); RBC 5.51 m/uL (4.30-5.90); RDW 12.9 % (11.5-15.5); WBC 14.6 k/uL (3.8-10.6)
[2020-07-08 14:59] LABS: Appearance,Urine Clear (Clear); Bacteria,Urine Rare /hpf; Bilirubin,Urine Negative (Negative); Blood,Urine Negative (Negative); Color,Urine Yellow; Glucose,Urine (UA) 2+ (Negative); Ketones,Urine Negative (Negative); Leukocyte Esterase,Urine Negative (Negative); Mucus,Urine Rare /hpf; Nitrite,Urine Negative (Negative); Protein,Urine 3+ (Negative); RBC,Urine 1 /hpf (0-5); Urobilinogen,Urine <2.0 mg/dL (<2.0); WBC,Urine 4 /hpf (0-5)
[2020-07-08 15:11] LABS: Albumin 3.7 g/dL (3.5-5.0); Calcium 9.1 mg/dL (8.4-10.2); Total Bilirubin 0.6 mg/dL (0.2-1.3); Total Protein 6.4 g/dL (6.3-8.2)
[2020-07-08 15:20] VITALS: RESP 18
[2020-07-08] MEDS ORDERED: INSULIN ASPART (NovoLOG) 100 UNIT/ML VIAL SQ ONE (15:45)
[2020-07-08 17:17] LABS: Glucose,Whole Blood 280 mg/dL (75-99)
[2020-07-08 17:28] VITALS: BP 127/78; PULSE 96; TEMP 98.9
== END 2020-07-08 17:40 | disposition home or self-care (01) ==
LOC: EC 12:58
DX: E11.65 Type 2 diabetes mellitus with hyperglycemia (principal); Z91.19 Patient's noncompliance with other medical treatment and regimen; K21.9 Gastro-esophageal reflux disease without esophagitis; E11.42 Type 2 diabetes mellitus with diabetic polyneuropathy; F17.200 Nicotine dependence, unspecified, uncomplicated; Z79.4 Long term (current) use of insulin; Z79.899 Other long term (current) drug therapy; Z83.3 Family history of diabetes mellitus
CPT/HCPCS: 36415; 93005; 80053; 85025; 81001; 99285; 96374; 96361 ×2; J2405

== ENCOUNTER 2020-08-04 15:25 | Emergency (ER) | payer OTHER ==
[2020-08-04 15:41] VITALS: TEMP 98.3
[2020-08-04 15:45] LABS: Glucose,Whole Blood 98 mg/dL (75-99)
[2020-08-04 16:03] LABS: Glucose,Whole Blood 76 mg/dL (75-99)
--- NOTE | 2020-08-04 16:16 | ED ---
General Adult HPI - General Chief complaint: Recheck/Abnormal Lab/Rx Stated complaint: diabetic Time Seen by Provider: 08/04/20 15:37 Source: patient, EMS, RN notes reviewed Mode of arrival: EMS Limitations: no limitations - History of Present Illness Initial comments: Patient is a pleasant 49-year-old male presenting to the emergency Department with low blood sugar. Patient states this does occur to him frequently. Patient states no recent changes in medication. Patient states he has been eating like normal. Patient was altered with low blood sugar. Patient given glucose by EMS with increase of blood sugar and resolution of symptoms. Patient admits to feeling slightly drowsy at this time. Patient is just finishing a sandwich. Patient has no other complaints. Patient denies any injury. - Related Data Home Medications Medication Instructions Recorded Confirmed Insulin Degludec [Tresiba 70 unit SQ HS 11/16/16 05/31/20 Flextouch U-200] Omeprazole 40 mg PO HS 12/20/18 05/31/20 hydrALAZINE HCL [Apresoline] 50 mg PO HS 01/29/19 05/31/20 Insulin Aspart [NovoLOG Flexpen] 15 units SQ AC-TID 07/09/19 05/31/20 lisinopriL 40 mg PO DAILY 07/09/19 05/31/20 Previous Rx's Medication Instructions Recorded Cephalexin [Keflex] 500 mg PO Q6HR #40 cap 07/11/19 Allergies Allergy/AdvReac Type Severity Reaction Status Date / Time No Known Allergies Allergy Verified 08/04/20 15:33 Review of Systems ROS Statement: Those systems with pertinent positive or pertinent negative responses have been documented in the HPI. ROS Other: All systems not noted in ROS Statement are negative. Constitutional: Denies: fever Eyes: Denies: eye pain ENT: Denies: ear pain Respiratory: Denies: cough Cardiovascular: Denies: chest pain Gastrointestinal: Denies: abdominal pain Genitourinary: Denies: dysuria Musculoskeletal: Denies: back pain Skin: Denies: rash Neurological: Denies: headache Past Medical History Past Medical History: Diabetes Mellitus, GERD/Reflux, Renal Disease Additional Past Medical History / Comment(s): IDDM type II, diabetic neuropathy bilateral feet, DKA, renal insufficiency, hypercalemia, past perianal abscess/fistula with surgery, BPH/urinary retention with surgery, UTI. History of Any Multi-Drug Resistant Organisms: None Reported Past Surgical History: No Surgical Hx Reported Additional Past Surgical History / Comment(s): 08/2014 cystoscopy with TURP, rectal exam/I&D/fistulotomy. I&D back Past Anesthesia/Blood Transfusion Reactions: No Reported Reaction Past Psychological History: No Psychological Hx Reported Smoking Status: Current every day smoker Past Alcohol Use History: None Reported Past Drug Use History: None Reported - Past Family History Mother Family Medical History: Diabetes Mellitus Additional Family Medical History / Comment(s): mother is Father Family Medical History: No Reported History Additional Family Medical History / Comment(s): Father is healthy. General Exam Limitations: no limitations General appearance: alert, in no apparent distress Head exam: Present: normocephalic Eye exam: Present: normal appearance, PERRL, EOMI ENT exam: Present: normal oropharynx Neck exam: Present: normal inspection. Absent: tenderness, meningismus Respiratory exam: Present: normal lung sounds bilaterally Cardiovascular Exam: Present: regular rate, normal rhythm GI/Abdominal exam: Present: soft. Absent: tenderness Extremities exam: Present: normal inspection. Absent: pedal edema, calf tenderness Neurological exam: Present: alert, oriented X3, CN II-XII intact. Absent: motor sensory deficit Expanded Neurological exam: Present: protecting the airway Patient oriented to: Present: person, place, time Speech: Present: fluid speech Cranial nerves: EOM's Intact: Normal Motor strength exam: RUE: 5, LUE: 5, RLE: 5, LLE: 5 Eye Response: (4) open spontaneously Motor Response: (6) obeys commands Verbal Response: (5) oriented Psychiatric exam: Present: flat affect Skin exam: Present: normal color Course Vital Signs 08/04/20 08/04/20 15:33 17:09 Temperature 98.3 F Pulse Rate 115 H 105 H Respiratory 18 20 Rate Blood Pressure 119/97 125/79 O2 Sat by Pulse 97 97 Oximetry Medical Decision Making - Medical Decision Making Patient reevaluated and alert and appropriate requesting discharge. Blood sugar has been stable. Patient advised need for follow-up. - Lab Data Lab Results 08/04/20 08/04/20 08/04/20 Range/Units 15:37 16:01 16:23 POC Glucose (mg/dL) 98 76 132 H (75-99) mg/dL POC Glu Application Development Consultant Kamille AvalosKamille Andrew 08/04/20 08/04/20 Range/Units 17:08 17:51 POC Glucose (mg/dL) 212 H 208 H (75-99) mg/dL POC Glu Application Development Consultant Chula AvalosChip [place] Disposition Clinical Impression: Hypoglycemia Disposition: HOME SELF-CARE Condition: Stable Instructions (If sedation given, give patient instructions): Hypoglycemia in a Person with Diabetes (ED) Additional Instructions: Do not miss meals. Please do follow-up through primary care physician in the next day or 2 for recheck and further recommendations. Please decrease insulin amount used by 25% until follow-up with your doctor. Return for change in mental status, weakness or confusion, worsening symptoms, uncontrolled blood sugar, or any other concerns. Is patient prescribed a controlled substance at d/c from ED?: No Referrals: Cristi Mary MD [Primary Care Provider] - 1-2 days Time of Disposition: 18:11
[2020-08-04 16:25] LABS: Glucose,Whole Blood 132 mg/dL (75-99)
[2020-08-04 17:09] LABS: Glucose,Whole Blood 212 mg/dL (75-99)
[2020-08-04 17:53] LABS: Glucose,Whole Blood 208 mg/dL (75-99)
[2020-08-04 18:10] VITALS: BP 154/94; PULSE 109; RESP 16
== END 2020-08-04 18:22 | disposition home or self-care (01) ==
LOC: EC 15:25
DX: E11.649 Type 2 diabetes mellitus with hypoglycemia without coma (principal); E11.40 Type 2 diabetes mellitus with diabetic neuropathy, unspecified; K21.9 Gastro-esophageal reflux disease without esophagitis; Z79.4 Long term (current) use of insulin; Z79.899 Other long term (current) drug therapy; F17.200 Nicotine dependence, unspecified, uncomplicated; Z83.3 Family history of diabetes mellitus
CPT/HCPCS: 36415; 99285

== ENCOUNTER 2021-02-24 09:53 | Inpatient (IN) | payer OTHER ==
[2021-02-24 10:20] LABS: Glucose,Whole Blood 471 mg/dL (75-99)
[2021-02-24] MEDS ORDERED: PANTOPRAZOLE 40 MG/10 ML VIAL IVP STA (10:23)
[2021-02-24] MEDS ORDERED: SODIUM CHLORIDE 0.9% 500 ML 500 ML IV ONE (10:23)
[2021-02-24] MEDS ORDERED: ONDANSETRON 4 MG/2 ML VIAL IVP STA ×2 (10:23→10:50)
[2021-02-24] MEDS ORDERED: SODIUM CHLORIDE 0.9% 1,000 ML IV SCH (10:30)
[2021-02-24] MEDS ORDERED: SODIUM CHLORIDE 0.9% 1,000 ML IV ONE (10:47)
[2021-02-24] MEDS ORDERED: LORazepam 2 MG/ML INJ IV STA (10:50)
[2021-02-24 10:51] LABS: Basophils # (A) 0.1 k/uL (0-0.2); Basophils % (A) 1 %; Eosinophils # (A) 0.1 k/uL (0-0.7); Eosinophils % (A) 1 %; HCT 41.8 % (39.0-53.0); HGB 14.5 gm/dL (13.0-17.5); Lymphocytes # (A) 0.7 k/uL (1.0-4.8); Lymphocytes % (A) 5 %; MCH 29.9 pg (25.0-35.0); MCHC 34.7 g/dL (31.0-37.0); MCV 86.2 fL (80.0-100.0); Mean Platelet Volume 8.5; Monocytes # (A) 0.5 k/uL (0-1.0); Monocytes % (A) 4 %; Neutrophils % (A) 89 %; Platelet Count 389 k/uL (150-450); RBC 4.84 m/uL (4.30-5.90); RDW 13.4 % (11.5-15.5); WBC 13.5 k/uL (3.8-10.6)
[2021-02-24 10:52] LABS: VBG PH 7.39 (7.31-7.41)
--- NOTE | 2021-02-24 10:53 | ED ---
General Adult HPI - General Chief complaint: Recheck/Abnormal Lab/Rx Stated complaint: High blood sugar Time Seen by Provider: 02/24/21 10:02 Source: patient, EMS, RN notes reviewed, old records reviewed Mode of arrival: EMS Limitations: altered mental status - History of Present Illness Initial comments: This is a 50-year-old male who presents emergency department with past medical history significant for diabetes. Patient states his sugar started getting high last night. Patient states she started vomiting throughout the night and started vomiting with look like some blood some point last night. Patient is very reluctant to answer questions because he is upset that he is feeling bad. Patient states she has diffuse abdominal pain. Patient states he does not drink. Patient states he has had no pancreatitis in the past she's never heard the term esophageal varices. Patient denies any chest pain difficulty breathing shortness breath per patient denies any fever chills or cough. - Related Data Home Medications Medication Instructions Recorded Confirmed Insulin Aspart [NovoLOG Flexpen] See Protocol SQ AC-TID 07/09/19 02/24/21 Lansoprazole 30 mg PO DAILY 02/24/21 02/24/21 Allergies Allergy/AdvReac Type Severity Reaction Status Date / Time No Known Allergies Allergy Verified 02/24/21 11:40 Review of Systems ROS Statement: Those systems with pertinent positive or pertinent negative responses have been documented in the HPI. ROS Other: All systems not noted in ROS Statement are negative. Past Medical History Past Medical History: Diabetes Mellitus, GERD/Reflux, Renal Disease Additional Past Medical History / Comment(s): IDDM type II, diabetic neuropathy bilateral feet, DKA, renal insufficiency, hypercalemia, past perianal abscess/fistula with surgery, BPH/urinary retention with surgery, UTI. History of Any Multi-Drug Resistant Organisms: None Reported Past Surgical History: No Surgical Hx Reported Additional Past Surgical History / Comment(s): 08/2014 cystoscopy with TURP, rectal exam/I&D/fistulotomy. I&D back Past Anesthesia/Blood Transfusion Reactions: No Reported Reaction Past Psychological History: No Psychological Hx Reported Smoking Status: Current every day smoker Past Alcohol Use History: None Reported Past Drug Use History: None Reported - Past Family History Mother Family Medical History: Diabetes Mellitus Additional Family Medical History / Comment(s): mother is Father Family Medical History: No Reported History Additional Family Medical History / Comment(s): Father is healthy. General Exam - General Exam Comments Initial Comments: GENERAL: Patient is well-developed and well-nourished. Patient is nontoxic and well- hydrated and is in moderate distress. ENT: Neck is soft and supple. No significant lymphadenopathy is noted. Oropharynx is clear. Moist mucous membranes. Neck has full range of motion without eliciting any pain. EYES: The sclera were anicteric and conjunctiva were pink and moist. Extraocular movements were intact and pupils were equal round and reactive to light. Eyelids were unremarkable. PULMONARY: Unlabored respirations. Good breath sounds bilaterally. No audible rales rhonchi or wheezing was noted. CARDIOVASCULAR: Patient is tachycardic at 120 beats a minute. ABDOMEN: She has diffuse abdominal pain but a little more tender in the epigastric region. SKIN: Skin is clear with no lesions or rashes and otherwise unremarkable. NEUROLOGIC: Patient is alert and oriented x3. Cranial nerves II through XII are grossly intact. Motor and sensory are also intact. Normal speech, volume and content. Symmetrical smile. MUSCULOSKELETAL: Normal extremities with adequate strength and full range of motion. LYMPHATICS: No significant lymphadenopathy is noted PSYCHIATRIC: Normal psychiatric evaluation. Limitations: altered mental status Course Vital Signs 02/24/21 02/24/21 09:58 11:08 Temperature 98.4 F Pulse Rate 116 H 117 H Respiratory 16 18 Rate Blood Pressure 193/112 189/98 O2 Sat by Pulse 100 100 Oximetry Medical Decision Making - Medical Decision Making EKG shows sinus tachycardia at 115 bpm W[place] interval is on a 48 QRS is 86 QT interval 342 QTC is 473. Patient's EKG shows no ST segment elevation or depression. Patient received 2 L of fluid in the emergency department. Patient also received multiple doses of Zofran and 1 of Ativan. After that point time patient was no longer vomiting and felt considerably better and was able to sleep. Patient was also given insulin and started on insulin drip emergency department. I spoke with Dr. Mary agreed to admit the patient admitted the patient wrote admitting orders. - Lab Data Result diagrams: 02/24/21 10:21 02/24/21 10:21 Lab Results 02/24/21 02/24/21 02/24/21 Range/Units 10:10 10:10 10:18 WBC (3.8-10.6) k/uL RBC (4.30-5.90) m/uL Hgb (13.0-17.5) gm/dL Hct (39.0-53.0) % MCV (80.0-100.0) fL MCH (25.0-35.0) pg MCHC (31.0-37.0) g/dL RDW (11.5-15.5) % Plt Count (150-450) k/uL MPV Neutrophils % % Lymphocytes % % Monocytes % % Eosinophils % % Basophils % % Neutrophils # (1.3-7.7) k/uL Lymphocytes # (1.0-4.8) k/uL Monocytes # (0-1.0) k/uL Eosinophils # (0-0.7) k/uL Basophils # (0-0.2) k/uL VBG pH 7.39 (7.31-7.41) VBG pCO2 26 L (37-51) mmHg VBG HCO3 15 L (24-28) mmol/L Sodium (137-145) mmol/L Potassium (3.5-5.1) mmol/L Chloride (98-107) mmol/L Carbon Dioxide (22-30) mmol/L Anion Gap mmol/L BUN (9-20) mg/dL Creatinine (0.66-1.25) mg/dL Est GFR (CKD-EPI)AfAm (>60 ml/min/1.73 sqM) Est GFR (CKD-EPI)NonAf (>60 ml/min/1.73 sqM) Glucose (74-99) mg/dL POC Glucose (mg/dL) 471 H (75-99) mg/dL POC Glu Teletype Technician ID MianChip hope Plasma Lactic Acid Jcarlos (0.7-2.0) mmol/L Calcium (8.4-10.2) mg/dL Magnesium (1.6-2.3) mg/dL Total Bilirubin (0.2-1.3) mg/dL AST (17-59) U/L ALT (4-49) U/L Alkaline Phosphatase (38-126) U/L Total Protein (6.3-8.2) g/dL Albumin (3.5-5.0) g/dL Lipase (23-300) U/L Serum Alcohol mg/dL Acetone, Qual (Negative) Blood Type Recheck No Previous Record Bld Type Recheck Status CABO Indicated Spec Expiration Date 02/27/2021 - 230902/24/21 02/24/21 02/24/21 Range/Units 10: 10: 10: WBC 13.5 H (3.8-10.6) k/uL RBC 4.84 (4.30-5.90) m/uL Hgb 14.5 (13.0-17.5) gm/dL Hct 41.8 (39.0-53.0) % MCV 86.2 (80.0-100.0) fL MCH 29.9 (25.0-35.0) pg MCHC 34.7 (31.0-37.0) g/dL RDW 13.4 (11.5-15.5) % Plt Count 389 (150-450) k/uL MPV 8.5 Neutrophils % 89 % Lymphocytes % 5 % Monocytes % 4 % Eosinophils % 1 % Basophils % 1 % Neutrophils # 12.0 H (1.3-7.7) k/uL Lymphocytes # 0.7 L (1.0-4.8) k/uL Monocytes # 0.5 (0-1.0) k/uL Eosinophils # 0.1 (0-0.7) k/uL Basophils # 0.1 (0-0.2) k/uL VBG pH (7.31-7.41) VBG pCO2 (37-51) mmHg VBG HCO3 (24-28) mmol/L Sodium 136 L (137-145) mmol/L Potassium 5.0 (3.5-5.1) mmol/L Chloride 102 (98-107) mmol/L Carbon Dioxide 13 L (22-30) mmol/L Anion Gap 21 mmol/L BUN 68 H (9-20) mg/dL Creatinine 4.50 H (0.66-1.25) mg/dL Est GFR (CKD-EPI)AfAm 16 (>60 ml/min/1.73 sqM) Est GFR (CKD-EPI)NonAf 14 (>60 ml/min/1.73 sqM) Glucose 503 H* (74-99) mg/dL POC Glucose (mg/dL) (75-99) mg/dL POC Glu Teletype Technician ID Plasma Lactic Acid Jcarlos 1.9 (0.7-2.0) mmol/L Calcium 9.6 (8.4-10.2) mg/dL Magnesium (1.6-2.3) mg/dL Total Bilirubin 0.8 (0.2-1.3) mg/dL AST 14 L (17-59) U/L ALT 9 (4-49) U/L Alkaline Phosphatase 170 H (38-126) U/L Total Protein 6.3 (6.3-8.2) g/dL Albumin 3.7 (3.5-5.0) g/dL Lipase (23-300) U/L Serum Alcohol <10 mg/dL Acetone, Qual Positive (Negative) Blood Type Recheck Bld Type Recheck Status Spec Expiration Date 02/24/21 Range/Units 11:04 WBC (3.8-10.6) k/uL RBC (4.30-5.90) m/uL Hgb (13.0-17.5) gm/dL Hct (39.0-53.0) % MCV (80.0-100.0) fL MCH (25.0-35.0) pg MCHC (31.0-37.0) g/dL RDW (11.5-15.5) % Plt Count (150-450) k/uL MPV Neutrophils % % Lymphocytes % % Monocytes % % Eosinophils % % Basophils % % Neutrophils # (1.3-7.7) k/uL Lymphocytes # (1.0-4.8) k/uL Monocytes # (0-1.0) k/uL Eosinophils # (0-0.7) k/uL Basophils # (0-0.2) k/uL VBG pH (7.31-7.41) VBG pCO2 (37-51) mmHg VBG HCO3 (24-28) mmol/L Sodium (137-145) mmol/L Potassium (3.5-5.1) mmol/L Chloride (98-107) mmol/L Carbon Dioxide (22-30) mmol/L Anion Gap mmol/L BUN (9-20) mg/dL Creatinine (0.66-1.25) mg/dL Est GFR (CKD-EPI)AfAm (>60 ml/min/1.73 sqM) Est GFR (CKD-EPI)NonAf (>60 ml/min/1.73 sqM) Glucose (74-99) mg/dL POC Glucose (mg/dL) (75-99) mg/dL POC Glu Teletype Technician ID Plasma Lactic Acid Jcarlos (0.7-2.0) mmol/L Calcium (8.4-10.2) mg/dL Magnesium 1.8 (1.6-2.3) mg/dL Total Bilirubin (0.2-1.3) mg/dL AST (17-59) U/L ALT (4-49) U/L Alkaline Phosphatase (38-126) U/L Total Protein (6.3-8.2) g/dL Albumin (3.5-5.0) g/dL Lipase 44 (23-300) U/L Serum Alcohol mg/dL Acetone, Qual (Negative) Blood Type Recheck Bld Type Recheck Status Spec Expiration Date Critical Care Time Critical Care Time: Yes Total Critical Care Time: 35 Disposition Clinical Impression: Diabetic ketoacidosis, Acute renal failure, GI bleed, Hypertensive urgency Disposition: ADMITTED IP TO THIS HOSP Referrals: Cristi Mary MD [Primary Care Provider] - 1-2 days Time of Disposition: 12:17
[2021-02-24 11:09] LABS: ALT 9 U/L (4-49); AST 14 U/L (17-59); African American GFR (CKD) 16 (>60 ml/min/1.73 sqM); Albumin 3.7 g/dL (3.5-5.0); Alcohol <10 mg/dL; Alkaline Phosphatase 170 U/L (38-126); Anion Gap 21 mmol/L; Blood Urea Nitrogen 68 mg/dL (9-20); Calcium 9.6 mg/dL (8.4-10.2); Carbon Dioxide 13 mmol/L (22-30); Chloride 102 mmol/L (98-107); Non-African American GFR(CKD) 14 (>60 ml/min/1.73 sqM); Sodium 136 mmol/L (137-145); Total Bilirubin 0.8 mg/dL (0.2-1.3); Total Protein 6.3 g/dL (6.3-8.2)
[2021-02-24 11:16] LABS: Glucose 503 mg/dL (74-99)
[2021-02-24 11:27] LABS: Magnesium 1.8 mg/dL (1.6-2.3)
--- NOTE | 2021-02-24 11:43 | XR ---
EXAMINATION TYPE: XR chest 2V DATE OF EXAM: 02/24/2021 COMPARISON: Chest x-ray March 26, 2020 HISTORY: Vomiting. Hyperglycemia. Difficulty in breathing. TECHNIQUE: Frontal and lateral views of the chest are obtained. FINDINGS: Somewhat low lung volumes redemonstrated. There is chronic parenchymal change without suspi cious new focal air space opacity, pleural effusion, or pneumothorax seen. The cardiac silhouette si ze is stable and within normal limits. The osseous structures are intact. IMPRESSION: No acute process. No significant change from prior
[2021-02-24] MEDS ORDERED: INSULIN REGULAR BOLUS (FROM DRIP BAG) IV ONE (12:06)
[2021-02-24] MEDS ORDERED: INSULIN REGULAR 100 UNIT in SODIUM CHLORIDE 0.9% 100 ML IV SCH (12:30)
[2021-02-24] MEDS: INSULIN REGULAR 100 UNIT in SODIUM CHLORIDE 0.9% 100 ML IV SCH ×2 (12:43→19:46)
[2021-02-24] MEDS: SODIUM CHLORIDE 0.9% 1,000 ML IV SCH ×2 (12:44→16:11)
[2021-02-24 13:14] LABS: Glucose,Whole Blood 554 mg/dL (75-99)
[2021-02-24 14:19] LABS: Glucose,Whole Blood 536 mg/dL (75-99)
[2021-02-24 14:44] LABS: Glucose,Whole Blood 480 mg/dL (75-99)
--- NOTE | 2021-02-24 14:51 | P.CONS ---
History of Present Illness - Reason for Consult Consult date: 02/24/21 Nausea and vomiting, coffee ground emesis Requesting physician: Jey Rutledge - Chief Complaint Elevated blood sugar associated with nausea and vomiting - History of Present Illness This a 50-year-old male with a past medical history of type 2 insulin-dependent diabetes, diabetic neuropathy, GERD and chronic kidney disease descended to the emergency department this morning with complaints of elevated blood sugars and nausea and vomiting. Patient states that his blood sugars were up to the 500s at home. He started having vomiting with like maybe there was some blood in it so he came to the emergency department for further evaluation. He has no history of previous GI bleed. He is not on any anticoagulation, does not use NSAIDs regularly. Only medication is insulin. On admission his blood sugar was in the 500s, he was positive for acetone. WBC 13.5 hemoglobin 14.5 hematocrit 41 platelet count 389,000 total bilirubin 0.8 AST 14 ALT 9 alkaline phosphatase 170 lipase 44. Gastric occult blood negative. He is denying any abdominal pain, nausea and vomiting is improving. He denies any black or bloody stools. Review of Systems REVIEW OF SYSTEMS: CARDIOPULMONARY: No chest pain or shortness of breath. Gastrointestinal: No abdominal pain. Nausea and vomiting. No hematemesis, patient had what appeared to be coffee-ground emesis with negative gastric occult blood. No rectal bleeding, or melena. GENITOURINARY: No dysuria or hematuria. MUSCULOSKELETAL: Reports normal range of motion., Joint pain. SKIN: No rashes. No jaundice. ENDOCRINE: No chills, fevers. No excessive weight gain or loss. No polydipsia or polyuria. PSYCHIATRIC: Unremarkable. NEUROLOGY: No change in mental status. Denies dizziness, headache. ENT: Vision unremarkable. CONSTITUTIONAL: No recent weight loss. No fever, chills, night sweats. Past Medical History Past Medical History: Diabetes Mellitus, GERD/Reflux, Renal Disease Additional Past Medical History / Comment(s): IDDM type II, diabetic neuropathy bilateral feet, DKA, renal insufficiency, hypercalemia, past perianal abscess/fistula with surgery, BPH/urinary retention with surgery, UTI. History of Any Multi-Drug Resistant Organisms: None Reported Past Surgical History: No Surgical Hx Reported Additional Past Surgical History / Comment(s): 08/2014 cystoscopy with TURP, rectal exam/I&D/fistulotomy. I&D back Past Anesthesia/Blood Transfusion Reactions: No Reported Reaction Past Psychological History: No Psychological Hx Reported Smoking Status: Current every day smoker Past Alcohol Use History: None Reported Past Drug Use History: None Reported - Past Family History Mother Family Medical History: Diabetes Mellitus Additional Family Medical History / Comment(s): mother is Father Family Medical History: No Reported History Additional Family Medical History / Comment(s): Father is healthy. Medications and Allergies Home Medications Medication Instructions Recorded Confirmed Type Insulin Aspart [NovoLOG Flexpen] See Protocol SQ AC-TID 07/09/19 02/24/21 History Allergies Allergy/AdvReac Type Severity Reaction Status Date / Time No Known Allergies Allergy Verified 02/24/21 11:40 Physical Exam Vitals: Vital Signs Temp Pulse Resp BP Pulse Ox 02/24/21 11:08 117 H 18 189/98 100 02/24/21 09:58 98.4 F 116 H 16 193/112 100 Intake and Output 02/23/21 02/24/21 02/24/21 22:59 06:59 14:59 Other: Weight 99.79 kg General appearance: The patient is alert, oriented, appears in no acute distress. HET: Head is normocephalic and atraumatic. Conjunctiva pink. Sclera anicteric. Neck: Supple without lymphadenopathy. Trachea midline. Heart: S1 S2. Regular rate and rhythm. Lungs: Clear to auscultation. Abdomen: Soft, nontender, nondistended with bowel sounds. No guarding or rigidity. Skin: No rashes. No jaundice. Extremities: Normal skin color and turgor. No pedal edema. Neurological: No focal deficits. Alert and oriented -3.. Results CBC & Chem 7: 02/24/21 10:21 02/24/21 10:21 Labs: Abnormal Lab Results - Last 24 Hours (Table) 02/24/21 02/24/21 02/24/21 Range/Units 10:10 10:18 10:21 WBC 13.5 H (3.8-10.6) k/uL Neutrophils # 12.0 H (1.3-7.7) k/uL Lymphocytes # 0.7 L (1.0-4.8) k/uL VBG pCO2 26 L (37-51) mmHg VBG HCO3 15 L (24-28) mmol/L Sodium (137-145) mmol/L Carbon Dioxide (22-30) mmol/L BUN (9-20) mg/dL Creatinine (0.66-1.25) mg/dL Glucose (74-99) mg/dL POC Glucose (mg/dL) 471 H (75-99) mg/dL AST (17-59) U/L Alkaline Phosphatase (38-126) U/L 02/24/21 Range/Units 10:21 WBC (3.8-10.6) k/uL Neutrophils # (1.3-7.7) k/uL Lymphocytes # (1.0-4.8) k/uL VBG pCO2 (37-51) mmHg VBG HCO3 (24-28) mmol/L Sodium 136 L (137-145) mmol/L Carbon Dioxide 13 L (22-30) mmol/L BUN 68 H (9-20) mg/dL Creatinine 4.50 H (0.66-1.25) mg/dL Glucose 503 H* (74-99) mg/dL POC Glucose (mg/dL) (75-99) mg/dL AST 14 L (17-59) U/L Alkaline Phosphatase 170 H (38-126) U/L Assessment and Plan (1) Nausea and vomiting Narrative/Plan: 50-year-old male who presented to the emergency department with elevated blood sugars at home associated with nausea and vomiting. Patient has a long history of uncontrolled diabetes and presented to the emergency department with a blood sugar in the 500s in diabetic ketoacidosis. Patient was having multiple episodes of nausea and vomiting through the night and this morning. Emesis appeared to be coffee-ground in color, gastric occult blood was obtained and was negative. Hemoglobin is stable at 14.5. Patient denies any previous history of GI bleed. He denies taking NSAIDs on a regular basis. No previous EGD, peptic ulcer disease, or history of esophagitis. No plan on endoscopic evaluation at this time. Nausea and vomiting likely related to diabetic ketoacidosis. Treat with antiemetics and Protonix. We'll continue to monitor. Current Visit: Yes Status: Acute Code(s): R11.2 - NAUSEA WITH VOMITING, UNSPECIFIED SNOMED Code(s): 90454731 (2) Diabetic ketoacidosis Current Visit: Yes Status: Acute Code(s): E11.10 - TYPE 2 DIABETES MELLITUS WITH KETOACIDOSIS WITHOUT COMA SNOMED Code(s): 969000992 (3) Chronic kidney disease Current Visit: No Status: Acute Code(s): N18.9 - CHRONIC KIDNEY DISEASE, UNSPECIFIED SNOMED Code(s): 073655777 (4) Diabetes mellitus Current Visit: No Status: Acute Code(s): E11.9 - TYPE 2 DIABETES MELLITUS WITHOUT COMPLICATIONS SNOMED Code(s): 59659616 Plan: 1. Continue symptomatic and supportive care 2. Protonix 40 mg twice a day 3. Antiemetics as needed 4. Continue IV hydration 5. Consistent carbohydrate diet as tolerated 6. No plans on endoscopic evaluation at this time Thank you for this consultation, we will continue to follow. Dr. Jhon Ricks I agree with the dictator's note, documented as a scribe by Sheila James.
[2021-02-24 15:45] LABS: Glucose,Whole Blood 341 mg/dL (75-99)
[2021-02-24] MEDS: ONDANSETRON 4 MG/2 ML VIAL IVP PRN ×2 (16:02→20:53)
[2021-02-24] MEDS: NICOTINE 21MG/24HR PATCH TRANSDERM SCH (16:10)
[2021-02-24 16:33] LABS: Glucose,Whole Blood 312 mg/dL (75-99)
[2021-02-24 16:48] LABS: Phosphorus 3.4 mg/dL (2.5-4.5); Potassium 3.9 mmol/L (3.5-5.1)
[2021-02-24 17:38] LABS: Glucose,Whole Blood 236 mg/dL (75-99)
[2021-02-24 18:28] LABS: Glucose,Whole Blood 175 mg/dL (75-99)
[2021-02-24 19:45] LABS: Glucose,Whole Blood 110 mg/dL (75-99)
[2021-02-24 20:41] LABS: Glucose,Whole Blood 83 mg/dL (75-99)
[2021-02-24] MEDS: PANTOPRAZOLE 40 MG/10 ML VIAL IVP SCH (20:52)
[2021-02-24 21:33] LABS: Glucose,Whole Blood 84 mg/dL (75-99)
[2021-02-24 21:38] LABS: Calcium 8.7 mg/dL (8.4-10.2); Phosphorus 3.2 mg/dL (2.5-4.5); Potassium 4.2 mmol/L (3.5-5.1)
[2021-02-24 22:31] LABS: Glucose,Whole Blood 147 mg/dL (75-99)
[2021-02-25] MEDS: ONDANSETRON 4 MG/2 ML VIAL IVP PRN (03:14)
[2021-02-25] MEDS: SODIUM CHLORIDE 0.9% 1,000 ML IV SCH ×4 (05:32→17:26)
[2021-02-25 06:26] LABS: Glucose,Whole Blood 474 mg/dL (75-99)
[2021-02-25] MEDS: INSULIN ASPART (NovoLOG) 100 UNIT/ML VIAL SQ SCH ×4 (06:33→21:21)
[2021-02-25] MEDS ORDERED: INSULIN ASPART (NovoLOG) 100 UNIT/ML VIAL SQ ONE (06:33)
[2021-02-25] MEDS: NICOTINE 21MG/24HR PATCH TRANSDERM SCH (08:31)
[2021-02-25] MEDS: PANTOPRAZOLE 40 MG/10 ML VIAL IVP SCH ×2 (08:32→21:20)
[2021-02-25 08:33] VITALS: RESP 16
--- NOTE | 2021-02-25 08:35 | P.HPIM ---
History of Present Illness H&P Date: 02/25/21 Chief Complaint: Elevated blood sugar. This is a history and physical 50-year-old white male with known history of hypertension history of malignant melanoma who has an underlying history of diabetes. Its type II and she has been doing well until recently when his insulin pump supplies ran out. He had difficulty obtaining supplies locally. He then had orally controlled blood sugar. He usually would supplement with long-acting with bolus insulin at home but this did not work. Blood sugar was elevated and he had significant an and Acidosis. He was admitted appropriately for diabetic ketoacidosis and is now stabilizing after insulin drip has been discontinued. We will go ahead and start on basal bolus Review of Systems Constitutional: Denies chills, Denies fever Eyes: denies blurred vision, denies pain Ears, nose, mouth and throat: Denies headache, Denies sore throat Cardiovascular: Denies chest pain, Denies shortness of breath Respiratory: Denies cough Gastrointestinal: Denies abdominal pain, Denies diarrhea, Denies nausea, Denies vomiting Past Medical History Past Medical History: Diabetes Mellitus, GERD/Reflux, Renal Disease Additional Past Medical History / Comment(s): IDDM type II, diabetic neuropathy bilateral feet, DKA, renal insufficiency, hypercalemia, past perianal abscess/fistula with surgery, BPH/urinary retention with surgery, UTI. History of Any Multi-Drug Resistant Organisms: None Reported Past Surgical History: No Surgical Hx Reported Additional Past Surgical History / Comment(s): 08/2014 cystoscopy with TURP, rectal exam/I&D/fistulotomy. I&D back Past Anesthesia/Blood Transfusion Reactions: No Reported Reaction Past Psychological History: No Psychological Hx Reported Smoking Status: Current every day smoker Past Alcohol Use History: None Reported Past Drug Use History: None Reported - Past Family History Mother Family Medical History: Diabetes Mellitus Additional Family Medical History / Comment(s): mother is Father Family Medical History: No Reported History Additional Family Medical History / Comment(s): Father is healthy. Medications and Allergies Home Medications Medication Instructions Recorded Confirmed Type Insulin Aspart [NovoLOG Flexpen] See Protocol SQ AC-TID 07/09/19 02/24/21 Hi story Allergies Allergy/AdvReac Type Severity Reaction Status Date / Time No Known Allergies Allergy Verified 02/24/21 11:40 Physical Exam Vitals: Vital Signs Temp Pulse Pulse Resp BP BP Pulse Ox 10/13/21 03:17 98.3 F 84 18 156/93 02/24/21 23:58 98.1 F 101 H 16 144/73 95 02/24/21 19:49 98.0 F 100 15 149/96 98 02/24/21 14:58 98.3 F 105 H 18 157/81 99 02/24/21 13:36 98.0 F 124 H 18 187/100 99 02/24/21 13:11 118 H 16 134/85 99 02/24/21 12:40 121 H 14 138/80 98 02/24/21 12:30 115 H 15 148/78 99 02/24/21 12:10 115 H 19 141/85 99 02/24/21 11:50 120 H 16 153/85 99 02/24/21 11:20 113 H 20 164/91 98 02/24/21 11:08 117 H 18 189/98 100 02/24/21 09:58 98.4 F 116 H 16 193/112 100 Intake and Output 02/24/21 02/25/21 02/25/21 22:59 06:59 14:59 Intake Total 874.448 250 Output Total 350 Balance 524.448 250 Intake: IV 10 Invasive Line 2 10 Intake, IV Titration 874.448 Amount Insulin Regular 100 unit 74.448 In Sodium Chloride 0.9% 100 ml @ 0.1 UNITS/KG/HR 10.079 mls/hr IV .Q10H2M [facility] Rx#:[id number] Sodium Chloride 0.9% 1, 800 000 ml @ 200 mls/hr IV . Q5H [facility] Rx#:[id number] Oral 240 Output: Urine 350 Other: # Voids 1 1 - Constitutional General appearance: no acute distress - EENT Eyes: EOMI - Neck Neck: no lymphadenopathy - Respiratory Respiratory: bilateral: CTA - Cardiovascular Rhythm: regular Heart sounds: normal: S1, S2 Abnormal Heart Sounds: no S3 Gallop - Gastrointestinal General gastrointestinal: soft, no tenderness - Psychiatric Psychiatric: A&O x's 3 Results CBC & Chem 7: 02/24/21 10:21 02/24/21 21:02 Labs: Abnormal Lab Results - Last 24 Hours (Table) 02/24/21 02/24/21 02/24/21 Range/Units 10:10 10:18 10:21 WBC 13.5 H (3.8-10.6) k/uL Neutrophils # 12.0 H (1.3-7.7) k/uL Lymphocytes # 0.7 L (1.0-4.8) k/uL VBG pCO2 26 L (37-51) mmHg VBG HCO3 15 L (24-28) mmol/L Sodium (137-145) mmol/L Chloride (98-107) mmol/L Carbon Dioxide (22-30) mmol/L BUN (9-20) mg/dL Creatinine (0.66-1.25) mg/dL Glucose (74-99) mg/dL POC Glucose (mg/dL) 471 H (75-99) mg/dL AST (17-59) U/L Alkaline Phosphatase (38-126) U/L 02/24/21 02/24/21 02/24/21 Range/Units 10: 13:13 14:06 WBC (3.8-10.6) k/uL Neutrophils # (1.3-7.7) k/uL Lymphocytes # (1.0-4.8) k/uL VBG pCO2 (37-51) mmHg VBG HCO3 (24-28) mmol/L Sodium 136 L (137-145) mmol/L Chloride (98-107) mmol/L Carbon Dioxide 13 L (22-30) mmol/L BUN 68 H (9-20) mg/dL Creatinine 4.50 H (0.66-1.25) mg/dL Glucose 503 H* (74-99) mg/dL POC Glucose (mg/dL) 554 H 536 H (75-99) mg/dL AST 14 L (17-59) U/L Alkaline Phosphatase 170 H (38-126) U/L 02/24/21 02/24/21 02/24/21 Range/Units 14:32 15:34 15:56 WBC (3.8-10.6) k/uL Neutrophils # (1.3-7.7) k/uL Lymphocytes # (1.0-4.8) k/uL VBG pCO2 (37-51) mmHg VBG HCO3 (24-28) mmol/L Sodium 135 L (137-145) mmol/L Chloride (98-107) mmol/L Carbon Dioxide 20 L (22-30) mmol/L BUN 67 H (9-20) mg/dL Creatinine 4.18 H (0.66-1.25) mg/dL Glucose 348 H (74-99) mg/dL POC Glucose (mg/dL) 480 H 341 H (75-99) mg/dL AST (17-59) U/L Alkaline Phosphatase (38-126) U/L 02/24/21 02/24/21 02/24/21 Range/Units 16:31 17:36 18:26 WBC (3.8-10.6) k/uL Neutrophils # (1.3-7.7) k/uL Lymphocytes # (1.0-4.8) k/uL VBG pCO2 (37-51) mmHg VBG HCO3 (24-28) mmol/L Sodium (137-145) mmol/L Chloride (98-107) mmol/L Carbon Dioxide (22-30) mmol/L BUN (9-20) mg/dL Creatinine (0.66-1.25) mg/dL Glucose (74-99) mg/dL POC Glucose (mg/dL) 312 H 236 H 175 H (75-99) mg/dL AST (17-59) U/L Alkaline Phosphatase (38-126) U/L 02/24/21 02/24/21 02/24/21 Range/Units 19:43 21:02 22:30 WBC (3.8-10.6) k/uL Neutrophils # (1.3-7.7) k/uL Lymphocytes # (1.0-4.8) k/uL VBG pCO2 (37-51) mmHg VBG HCO3 (24-28) mmol/L Sodium 136 L (137-145) mmol/L Chloride 108 H (98-107) mmol/L Carbon Dioxide 20 L (22-30) mmol/L BUN 63 H (9-20) mg/dL Creatinine 3.88 H (0.66-1.25) mg/dL Glucose (74-99) mg/dL POC Glucose (mg/dL) 110 H 147 H (75-99) mg/dL AST (17-59) U/L Alkaline Phosphatase (38-126) U/L 02/25/21 Range/Units 06:25 WBC (3.8-10.6) k/uL Neutrophils # (1.3-7.7) k/uL Lymphocytes # (1.0-4.8) k/uL VBG pCO2 (37-51) mmHg VBG HCO3 (24-28) mmol/L Sodium (137-145) mmol/L Chloride (98-107) mmol/L Carbon Dioxide (22-30) mmol/L BUN (9-20) mg/dL Creatinine (0.66-1.25) mg/dL Glucose (74-99) mg/dL POC Glucose (mg/dL) 474 H (75-99) mg/dL AST (17-59) U/L Alkaline Phosphatase (38-126) U/L Thrombosis Risk Factor Assmnt - Choose All That Apply Any of the Below Risk Factors Present?: Yes Each Factor Represents 1 point: Obesity (BMI >25) Other Risk Factors: No Other congenital or acquired thrombophilia - If yes, enter type in comment: No Thrombosis Risk Factor Assessment Total Risk Factor Score: 1 Thrombosis Risk Factor Assessment Level: Low Risk Assessment and Plan (1) Acute renal failure Current Visit: Yes Status: Acute Code(s): N17.9 - ACUTE KIDNEY FAILURE, UNSPECIFIED SNOMED Code(s): 90000476 (2) Diabetic ketoacidosis Current Visit: Yes Status: Acute Code(s): E11.10 - TYPE 2 DIABETES MELLITUS WITH KETOACIDOSIS WITHOUT COMA SNOMED Code(s): 001357846 (3) Nausea and vomiting Current Visit: Yes Status: Acute Code(s): R11.2 - NAUSEA WITH VOMITING, UNSPECIFIED SNOMED Code(s): 28704388 (4) Dehydration Current Visit: No Status: Acute Code(s): E86.0 - DEHYDRATION SNOMED Code(s): 09201891 (5) Diabetes mellitus Current Visit: No Status: Acute Code(s): E11.9 - TYPE 2 DIABETES MELLITUS WITHOUT COMPLICATIONS SNOMED Code(s): 85470073 Plan: The patient will be stabilized from electrolyte perspective. Continue hydration. Check phosphorus level as well as potassium. Check CBC in a.m. We had a long discussion regarding the availability pump supplies of the patient continues to have decent control. The patient has history of stubbornness when it comes to convenience of supplies. His mail-order pharmacy is not as her helping him as well.
[2021-02-25] MEDS ORDERED: amLODIPine 5 MG TAB PO SCH (09:00)
[2021-02-25 09:09] LABS: Albumin 2.8 g/dL (3.5-5.0); Calcium 8.3 mg/dL (8.4-10.2); Potassium 4.4 mmol/L (3.5-5.1); Total Bilirubin 0.4 mg/dL (0.2-1.3); Total Protein 5.3 g/dL (6.3-8.2)
[2021-02-25 11:43] LABS: Glucose,Whole Blood 525 mg/dL (75-99)
[2021-02-25 11:59] VITALS: BMI 32.5
--- NOTE | 2021-02-25 15:41 | P.PN ---
Subjective Progress Note Date: 02/25/21 Principal diagnosis: Nausea and vomiting 50-year-old male who presented to the emergency department yesterday with complaints of nausea and vomiting with updated blood sugars. Patient has a long-standing history of type 2 diabetes mellitus. Patient was admitted with diabetic ketoacidosis with a blood sugar in the 500s. Blood sugars are still elevated, however he denies any nausea or vomiting. He denied any hematemesis. Objective - Vital Signs Vital signs: Vital Signs Temp 98.3 F 02/25/21 08:32 Pulse 113 H 02/25/21 08:44 Resp 16 02/25/21 08:32 BP 142/86 02/25/21 08:32 Pulse Ox 98 02/25/21 08:32 Intake & Output 02/24/21 02/25/21 02/25/21 18:59 06:59 18:59 Intake Total 2931.069 825.123 250 Output Total 350 Balance 2931.069 475.123 250 Weight 99.79 kg Intake: IV 10 10 Invasive Line 2 10 10 Intake, IV Titration 2371.069 825.123 Amount Insulin Regular 100 unit 71.069 25.123 In Sodium Chloride 0.9% 100 ml @ 0.1 UNITS/KG/HR 10.079 mls/hr IV .Q10H2M [facility] Rx#:[id number] Sodium Chloride 0.9% 1, 800 800 000 ml @ 200 mls/hr IV . Q5H [facility] Rx#:[id number] Sodium Chloride 0.9% 1, 1000 000 ml @ 999 mls/hr IV . Q1H1M [facility] Rx#:[id number] Sodium Chloride 0.9% 500 500 ml 500 ml @ 999 mls/hr IV .Q31M [facility] Rx#:[id number] Oral 550 240 Output: Urine 350 Other: Voiding Method Toilet Toilet Urinal Urinal # Voids 1 - Exam General appearance: The patient is alert, oriented, appears in no acute distress. HET: Head is normocephalic and atraumatic. Conjunctiva pink. Sclera anicteric. Neck: Supple without lymphadenopathy. Abdomen: Soft, nontender, nondistended with bowel sounds. No guarding or rigidity. Extremities: Normal skin color and turgor. No pedal edema Skin: No rashes, no jaundice Neurological: No focal deficits. Alert and oriented -3. - Labs CBC & Chem 7: 02/24/21 10:21 02/25/21 08:32 Labs: Abnormal Lab Results - Last 24 Hours (Table) 02/24/21 02/24/21 02/24/21 Range/Units 10: 13:13 14:06 Sodium 136 L (137-145) mmol/L Chloride (98-107) mmol/L Carbon Dioxide 13 L (22-30) mmol/L BUN 68 H (9-20) mg/dL Creatinine 4.50 H (0.66-1.25) mg/dL Glucose 503 H* (74-99) mg/dL POC Glucose (mg/dL) 554 H 536 H (75-99) mg/dL Calcium (8.4-10.2) mg/dL AST 14 L (17-59) U/L Alkaline Phosphatase 170 H (38-126) U/L Total Protein (6.3-8.2) g/dL Albumin (3.5-5.0) g/dL 02/24/21 02/24/21 02/24/21 Range/Units 14:32 15:34 15:56 Sodium 135 L (137-145) mmol/L Chloride (98-107) mmol/L Carbon Dioxide 20 L (22-30) mmol/L BUN 67 H (9-20) mg/dL Creatinine 4.18 H (0.66-1.25) mg/dL Glucose 348 H (74-99) mg/dL POC Glucose (mg/dL) 480 H 341 H (75-99) mg/dL Calcium (8.4-10.2) mg/dL AST (17-59) U/L Alkaline Phosphatase (38-126) U/L Total Protein (6.3-8.2) g/dL Albumin (3.5-5.0) g/dL 02/24/21 02/24/21 02/24/21 Range/Units 16:31 17:36 18:26 Sodium (137-145) mmol/L Chloride (98-107) mmol/L Carbon Dioxide (22-30) mmol/L BUN (9-20) mg/dL Creatinine (0.66-1.25) mg/dL Glucose (74-99) mg/dL POC Glucose (mg/dL) 312 H 236 H 175 H (75-99) mg/dL Calcium (8.4-10.2) mg/dL AST (17-59) U/L Alkaline Phosphatase (38-126) U/L Total Protein (6.3-8.2) g/dL Albumin (3.5-5.0) g/dL 02/24/21 02/24/21 02/24/21 Range/Units 19:43 21:02 22:30 Sodium 136 L (137-145) mmol/L Chloride 108 H (98-107) mmol/L Carbon Dioxide 20 L (22-30) mmol/L BUN 63 H (9-20) mg/dL Creatinine 3.88 H (0.66-1.25) mg/dL Glucose (74-99) mg/dL POC Glucose (mg/dL) 110 H 147 H (75-99) mg/dL Calcium (8.4-10.2) mg/dL AST (17-59) U/L Alkaline Phosphatase (38-126) U/L Total Protein (6.3-8.2) g/dL Albumin (3.5-5.0) g/dL 02/25/21 02/25/21 Range/Units 06:25 08:32 Sodium 134 L (137-145) mmol/L Chloride (98-107) mmol/L Carbon Dioxide 16 L (22-30) mmol/L BUN 61 H (9-20) mg/dL Creatinine 3.86 H (0.66-1.25) mg/dL Glucose 433 H (74-99) mg/dL POC Glucose (mg/dL) 474 H (75-99) mg/dL Calcium 8.3 L (8.4-10.2) mg/dL AST 16 L (17-59) U/L Alkaline Phosphatase (38-126) U/L Total Protein 5.3 L (6.3-8.2) g/dL Albumin 2.8 L (3.5-5.0) g/dL Assessment and Plan (1) Nausea and vomiting Narrative/Plan: 50-year-old male who presented to the emergency department with elevated blood sugars at home associated with nausea and vomiting. Patient has a long history of uncontrolled diabetes and presented to the emergency department with a blood sugar in the 500s in diabetic ketoacidosis. Patient was having multiple episodes of nausea and vomiting through the night and this morning. Emesis appeared to be coffee-ground in color, gastric occult blood was obtained and was negative. Hemoglobin is stable at 14.5. Patient denies any previous history of GI bleed. He denies taking NSAIDs on a regular basis. No previous EGD, peptic ulcer disease, or history of esophagitis. No plan on endoscopic evaluation at this time. Nausea and vomiting likely related to diabetic ketoacidosis. Treat with antiemetics and Protonix. We'll continue to monitor. Current Visit: Yes Status: Acute Code(s): R11.2 - NAUSEA WITH VOMITING, UNSPECIFIED SNOMED Code(s): 12977392 (2) Diabetic ketoacidosis Current Visit: Yes Status: Acute Code(s): E11.10 - TYPE 2 DIABETES MELLITUS WITH KETOACIDOSIS WITHOUT COMA SNOMED Code(s): 137330357 (3) Chronic kidney disease Current Visit: No Status: Acute Code(s): N18.9 - CHRONIC KIDNEY DISEASE, UNSPECIFIED SNOMED Code(s): 863117167 (4) Diabetes mellitus Current Visit: No Status: Acute Code(s): E11.9 - TYPE 2 DIABETES MELLITUS WITHOUT COMPLICATIONS SNOMED Code(s): 65480837 Plan: 1. Continue symptomatic and supportive care 2. Protonix 40 mg twice a day 3. Antiemetics as needed 4. Consistent carbohydrate diet as tolerated 5. No plans on endoscopic evaluation at this time Thank you for this consultation, we will sign off at this time. Dr. Jhon Ricks I agree with the dictator's note, documented as a scribe by Sheila James.
[2021-02-25 17:00] LABS: Glucose,Whole Blood 366 mg/dL (75-99)
[2021-02-25 20:04] VITALS: BP 166/89; PULSE 102; TEMP 98.4
[2021-02-25 20:20] LABS: Glucose,Whole Blood 343 mg/dL (75-99)
[2021-02-26 06:15] LABS: Glucose,Whole Blood 442 mg/dL (75-99)
[2021-02-26 06:31] LABS: HGB 13.3 gm/dL (13.0-17.5); MCH 29.5 pg (25.0-35.0); MCHC 33.3 g/dL (31.0-37.0); MCV 88.5 fL (80.0-100.0); Mean Platelet Volume 8.1; Platelet Count 363 k/uL (150-450); RBC 4.52 m/uL (4.30-5.90); RDW 13.5 % (11.5-15.5); WBC 9.4 k/uL (3.8-10.6)
[2021-02-26] MEDS: INSULIN ASPART (NovoLOG) 100 UNIT/ML VIAL SQ SCH (06:35)
[2021-02-26] MEDS ORDERED: INSULIN DETEMIR (LEVEMIR) 100 UNIT/ML SYR SQ STA (06:58)
[2021-02-26] MEDS ORDERED: INSULIN ASPART (NovoLOG) 100 UNIT/ML VIAL SQ ONE (06:59)
[2021-02-26] MEDS ORDERED: INSULIN DETEMIR (LEVEMIR) 100 UNIT/ML SYR SQ SCH (07:00)
[2021-02-26 07:11] LABS: Calcium 8.7 mg/dL (8.4-10.2); Potassium 5.2 mmol/L (3.5-5.1); Total Bilirubin 0.4 mg/dL (0.2-1.3); Total Protein 5.7 g/dL (6.3-8.2)
--- NOTE | 2021-02-26 13:27 | P.DS ---
Providers Date of admission: 02/24/21 12:17 Attending physician: Cristi Mary Primary care physician: Cristi Mary - Discharge Diagnosis(es) (1) Acute renal failure Status: Acute (2) Diabetic ketoacidosis Status: Acute (3) Nausea and vomiting Status: Acute (4) Dehydration Status: Acute (5) Diabetes mellitus Status: Acute Hospital Course: This is a discharge summary a 50-year-old white male admitted for diabetic ketoacidosis. The patient states he ran out of insulin pump supplies and was unable to obtain them quickly and stopped taking medication. The patient has an underlying history of malignant melanoma, hypertension and diabetes. The patient was stabilized with appropriate DKA protocols. However, transitioning him to basal bolus was somewhat difficult because he is fairly noncompliant taking his medication. He will be discharged on Levemir 50 units with NovoLog sliding scale. The patient is tolerating diet and gap is stable. However, he has nephropathy related most likely poor diabetes control historically. He refused to see nephrology and was discharged. Patient Condition at Discharge: Fair Plan - Discharge Summary Discharge Rx Participant: Yes New Discharge Prescriptions: No Action Insulin Aspart [NovoLOG Flexpen] See Protocol SQ AC-TID Discharge Medication List Insulin Aspart [NovoLOG Flexpen] See Protocol SQ AC-TID 07/09/19 [History] Follow up Appointment(s)/Referral(s): Cristi Mary MD [Primary Care Provider] - 1-2 days Activity/Diet/Wound Care/Special Instructions: Dr. Mary will call in your new prescriptions (insulin) to your pharmacy. Discharge Disposition: HOME SELF-CARE
== END 2021-02-26 09:28 | disposition home or self-care (01) | DRG 638 ==
LOC: EC 09:53 → 3SCARD 12:17
PROVIDERS: ADMIT Family Medicine; ATTEND Family Medicine
DX: E11.10 Type 2 diabetes mellitus with ketoacidosis without coma (principal); K92.2 Gastrointestinal hemorrhage, unspecified; N17.9 Acute kidney failure, unspecified; E86.0 Dehydration; E11.22 Type 2 diabetes mellitus with diabetic chronic kidney disease; E11.40 Type 2 diabetes mellitus with diabetic neuropathy, unspecified; F17.200 Nicotine dependence, unspecified, uncomplicated; I12.9 Hypertensive chronic kidney disease with stage 1 through stage 4 chronic kidney disease, or unspecified chronic kidney disease; I16.0 Hypertensive urgency; Z20.822 Contact with and (suspected) exposure to COVID-19; N18.9 Chronic kidney disease, unspecified; K21.9 Gastro-esophageal reflux disease without esophagitis; Z79.4 Long term (current) use of insulin; Z83.3 Family history of diabetes mellitus; Z85.820 Personal history of malignant melanoma of skin; Z91.14 Patient's other noncompliance with medication regimen
CPT/HCPCS: 36415; 71046; 80048; 80051; 80053; 80320; 82009; 82271; 82565; 82803; 82947; 83605; 83690; 83735; 84100; 84520; 85025; 85027; 86850; 86900; 86901; 87635; 93005; 96361; 96374; 96375; 96376; 99291

== ENCOUNTER 2021-03-18 22:29 | Emergency (ER) | payer OTHER ==
--- NOTE | 2021-03-18 22:37 | ED ---
Recheck HPI - General Stated Complaint: Hypoglycemia Time Seen by Provider: 03/18/21 22:36 Source: RN notes reviewed, old records reviewed, Caregiver Mode of arrival: EMS Limitations: altered mental status - History of Present Illness Initial Comments: 6 is a 50-year-old male presented for recheck of blood sugar. Patient was here earlier in the day for recheck of blood sugar and has had persistently low blood sugar outpatient basis with altered mental status and had to have EMS called twice. EMS comes to see patient today for low blood sugar. Patient resents area with low blood sugar is able to eat and drink he is a diabetic on insulin only with no oral medication. MD Complaint: abnormal lab -: unknown (Low blood sugar) Returns Today for: Called Because of Abnormal Lab/Test, persistent/worsening pain related to initial visit Symptoms Since Prior Visit: no new symptoms (Symptoms resolved after sugar given) Context: planned re-check Associated Symptoms: none Treatments Prior to Arrival: other medications (Patient given sugar per EMS) - Related Data Home Medications Medication Instructions Recorded Confirmed Insulin Aspart [NovoLOG Flexpen] See Protocol SQ AC-TID 07/09/19 03/18/21 Insulin Degludec [Tresiba 50 units SQ DAILY@1700 03/18/21 03/18/21 Flextouch U-200 Pen] Pantoprazole [Protonix] 40 mg PO HS 03/18/21 03/18/21 hydrALAZINE HCL 50 mg PO HS 03/18/21 03/18/21 lisinopriL [Zestril] 40 mg PO HS 03/18/21 03/18/21 Allergies Allergy/AdvReac Type Severity Reaction Status Date / Time No Known Allergies Allergy Verified 03/18/21 23:30 Review of Systems ROS Statement: Those systems with pertinent positive or pertinent negative responses have been documented in the HPI. ROS Other: All systems not noted in ROS Statement are negative. Past Medical History Past Medical History: Diabetes Mellitus, GERD/Reflux, Renal Disease Additional Past Medical History / Comment(s): IDDM type II, diabetic neuropathy bilateral feet, DKA, renal insufficiency, hypercalemia, past perianal abscess/fistula with surgery, BPH/urinary retention with surgery, UTI. History of Any Multi-Drug Resistant Organisms: None Reported Past Surgical History: No Surgical Hx Reported Additional Past Surgical History / Comment(s): 08/2014 cystoscopy with TURP, rectal exam/I&D/fistulotomy. I&D back Past Anesthesia/Blood Transfusion Reactions: No Reported Reaction Past Psychological History: No Psychological Hx Reported Smoking Status: Current every day smoker Past Alcohol Use History: None Reported Past Drug Use History: None Reported - Past Family History Mother Family Medical History: Diabetes Mellitus Additional Family Medical History / Comment(s): mother is Father Family Medical History: No Reported History Additional Family Medical History / Comment(s): Father is healthy. General Exam General appearance: alert, in no apparent distress Head exam: Present: atraumatic, normocephalic, normal inspection Eye exam: Present: normal appearance, PERRL, EOMI. Absent: scleral icterus, conjunctival injection, periorbital swelling ENT exam: Present: normal exam, mucous membranes moist Neck exam: Present: normal inspection. Absent: tenderness, meningismus, lymphadenopathy Respiratory exam: Present: normal lung sounds bilaterally. Absent: respiratory distress, wheezes, rales, rhonchi, stridor Cardiovascular Exam: Present: regular rate, normal rhythm, normal heart sounds. Absent: systolic murmur, diastolic murmur, rubs, gallop, clicks GI/Abdominal exam: Present: soft, normal bowel sounds. Absent: distended, tenderness, guarding, rebound, rigid Extremities exam: Present: normal inspection, full ROM, normal capillary refill. Absent: tenderness, pedal edema, joint swelling, calf tenderness Back exam: Present: normal inspection Neurological exam: Present: alert, oriented X3, CN II-XII intact Psychiatric exam: Present: normal affect, normal mood Skin exam: Present: warm, dry, intact, normal color. Absent: rash Course Vital Signs 03/18/21 03/19/21 22:38 00:56 Temperature 97.6 F Pulse Rate 120 H 87 Respiratory 18 22 Rate Blood Pressure 165/112 154/96 O2 Sat by Pulse 98 96 Oximetry - Reevaluation(s) Reevaluation #1: 03/19/21 02:10 Medical record is reviewed Reevaluation #2: 03/19/21 02:10 Patient does not want to be in the hospital anymore he states is able to eat and drink and feels well Reevaluation #3: 03/19/21 02:10 Patient can be discharged home Medical Decision Making - Medical Decision Making 50 male to the ER for evaluation of recurrent low blood sugar. Patient is able to eat and drink here in the ER blood sugars maintained over a few hours and patient can be discharged home - Lab Data Result diagrams: 03/18/21 23:43 03/18/21 23:43 Lab Results 03/18/21 03/18/21 03/18/21 Range/Units 22:35 22:53 23:23 WBC (3.8-10.6) k/uL RBC (4.30-5.90) m/uL Hgb (13.0-17.5) gm/dL Hct (39.0-53.0) % MCV (80.0-100.0) fL MCH (25.0-35.0) pg MCHC (31.0-37.0) g/dL RDW (11.5-15.5) % Plt Count (150-450) k/uL MPV Neutrophils % % Lymphocytes % % Monocytes % % Eosinophils % % Basophils % % Neutrophils # (1.3-7.7) k/uL Lymphocytes # (1.0-4.8) k/uL Monocytes # (0-1.0) k/uL Eosinophils # (0-0.7) k/uL Basophils # (0-0.2) k/uL PT (9.0-12.0) sec INR (<1.2) APTT (22.0-30.0) sec Sodium (137-145) mmol/L Potassium (3.5-5.1) mmol/L Chloride (98-107) mmol/L Carbon Dioxide (22-30) mmol/L Anion Gap mmol/L BUN (9-20) mg/dL Creatinine (0.66-1.25) mg/dL Est GFR (CKD-EPI)AfAm (>60 ml/min/1.73 sqM) Est GFR (CKD-EPI)NonAf (>60 ml/min/1.73 sqM) Glucose (74-99) mg/dL POC Glucose (mg/dL) 50 L 52 L 99 (75-99) mg/dL POC Glu Tyre Retreader ID Jay, Venancio Tesfaye, Joanne Tesfaye, Joanne Calcium (8.4-10.2) mg/dL Phosphorus (2.5-4.5) mg/dL Magnesium (1.6-2.3) mg/dL Total Bilirubin (0.2-1.3) mg/dL AST (17-59) U/L ALT (4-49) U/L Alkaline Phosphatase (38-126) U/L Troponin I (0.000-0.034) ng/mL Total Protein (6.3-8.2) g/dL Albumin (3.5-5.0) g/dL 03/18/21 03/18/21 03/18/21 Range/Units 23:43 23:43 23:43 WBC 13.5 H (3.8-10.6) k/uL RBC 4.06 L (4.30-5.90) m/uL Hgb 11.8 L (13.0-17.5) gm/dL Hct 35.8 L (39.0-53.0) % MCV 88.2 (80.0-100.0) fL MCH 29.1 (25.0-35.0) pg MCHC 33.0 (31.0-37.0) g/dL RDW 13.2 (11.5-15.5) % Plt Count 438 (150-450) k/uL MPV 7.3 Neutrophils % 86 % Lymphocytes % 7 % Monocytes % 6 % Eosinophils % 1 % Basophils % 0 % Neutrophils # 11.6 H (1.3-7.7) k/uL Lymphocytes # 0.9 L (1.0-4.8) k/uL Monocytes # 0.8 (0-1.0) k/uL Eosinophils # 0.1 (0-0.7) k/uL Basophils # 0.1 (0-0.2) k/uL PT 10.2 (9.0-12.0) sec INR 0.9 (<1.2) APTT 25.0 (22.0-30.0) sec Sodium 136 L (137-145) mmol/L Potassium 5.3 H (3.5-5.1) mmol/L Chloride 106 (98-107) mmol/L Carbon Dioxide 20 L (22-30) mmol/L Anion Gap 10 mmol/L BUN 47 H (9-20) mg/dL Creatinine 4.08 H (0.66-1.25) mg/dL Est GFR (CKD-EPI)AfAm 18 (>60 ml/min/1.73 sqM) Est GFR (CKD-EPI)NonAf 16 (>60 ml/min/1.73 sqM) Glucose 109 H (74-99) mg/dL POC Glucose (mg/dL) (75-99) mg/dL POC Glu Tyre Retreader ID Calcium 9.7 (8.4-10.2) mg/dL Phosphorus 4.0 (2.5-4.5) mg/dL Magnesium 1.9 (1.6-2.3) mg/dL Total Bilirubin 0.4 (0.2-1.3) mg/dL AST 28 (17-59) U/L ALT 13 (4-49) U/L Alkaline Phosphatase 117 (38-126) U/L Troponin I (0.000-0.034) ng/mL Total Protein 6.2 L (6.3-8.2) g/dL Albumin 3.4 L (3.5-5.0) g/dL 03/18/21 03/18/21 03/19/21 Range/Units 23:43 23:58 00:52 WBC (3.8-10.6) k/uL RBC (4.30-5.90) m/uL Hgb (13.0-17.5) gm/dL Hct (39.0-53.0) % MCV (80.0-100.0) fL MCH (25.0-35.0) pg MCHC (31.0-37.0) g/dL RDW (11.5-15.5) % Plt Count (150-450) k/uL MPV Neutrophils % % Lymphocytes % % Monocytes % % Eosinophils % % Basophils % % Neutrophils # (1.3-7.7) k/uL Lymphocytes # (1.0-4.8) k/uL Monocytes # (0-1.0) k/uL Eosinophils # (0-0.7) k/uL Basophils # (0-0.2) k/uL PT (9.0-12.0) sec INR (<1.2) APTT (22.0-30.0) sec Sodium (137-145) mmol/L Potassium (3.5-5.1) mmol/L Chloride (98-107) mmol/L Carbon Dioxide (22-30) mmol/L Anion Gap mmol/L BUN (9-20) mg/dL Creatinine (0.66-1.25) mg/dL Est GFR (CKD-EPI)AfAm (>60 ml/min/1.73 sqM) Est GFR (CKD-EPI)NonAf (>60 ml/min/1.73 sqM) Glucose (74-99) mg/dL POC Glucose (mg/dL) 133 H 170 H (75-99) mg/dL POC Glu Tyre Retreader SURY IgorTyler Tom Calcium (8.4-10.2) mg/dL Phosphorus (2.5-4.5) mg/dL Magnesium (1.6-2.3) mg/dL Total Bilirubin (0.2-1.3) mg/dL AST (17-59) U/L ALT (4-49) U/L Alkaline Phosphatase (38-126) U/L Troponin I <0.012 (0.000-0.034) ng/mL Total Protein (6.3-8.2) g/dL Albumin (3.5-5.0) g/dL Disposition Clinical Impression: Dizziness, Hypoglycemia Disposition: HOME SELF-CARE Condition: Good Instructions (If sedation given, give patient instructions): Hypoglycemia in a Person with Diabetes (ED) Is patient prescribed a controlled substance at d/c from ED?: No Referrals: Cristi Mary MD [Primary Care Provider] - 1-2 days
[2021-03-18 22:45] LABS: Glucose,Whole Blood 50 mg/dL (75-99)
[2021-03-18 22:46] VITALS: TEMP 97.6
[2021-03-18 23:03] LABS: Glucose,Whole Blood 52 mg/dL (75-99)
[2021-03-18] MEDS ORDERED: DEXTROSE 5%-0.45% NACL 1,000 ML IV ONE (23:22)
[2021-03-18 23:24] LABS: Glucose,Whole Blood 99 mg/dL (75-99)
[2021-03-18 23:56] LABS: Basophils # (A) 0.1 k/uL (0-0.2); Basophils % (A) 0 %; Eosinophils # (A) 0.1 k/uL (0-0.7); Eosinophils % (A) 1 %; HCT 35.8 % (39.0-53.0); HGB 11.8 gm/dL (13.0-17.5); Lymphocytes # (A) 0.9 k/uL (1.0-4.8); Lymphocytes % (A) 7 %; MCH 29.1 pg (25.0-35.0); MCV 88.2 fL (80.0-100.0); Mean Platelet Volume 7.3; Monocytes # (A) 0.8 k/uL (0-1.0); Monocytes % (A) 6 %; Neutrophils # (A) 11.6 k/uL (1.3-7.7); Neutrophils % (A) 86 %; Platelet Count 438 k/uL (150-450); RBC 4.06 m/uL (4.30-5.90); RDW 13.2 % (11.5-15.5); WBC 13.5 k/uL (3.8-10.6)
[2021-03-19 00:02] LABS: Glucose,Whole Blood 133 mg/dL (75-99)
[2021-03-19 00:06] LABS: INR 0.9 (<1.2); Prothrombin Time 10.2 sec (9.0-12.0)
[2021-03-19 00:14] LABS: Albumin 3.4 g/dL (3.5-5.0); Calcium 9.7 mg/dL (8.4-10.2); Magnesium 1.9 mg/dL (1.6-2.3); Potassium 5.3 mmol/L (3.5-5.1); Total Bilirubin 0.4 mg/dL (0.2-1.3); Total Protein 6.2 g/dL (6.3-8.2)
[2021-03-19 00:53] LABS: Glucose,Whole Blood 170 mg/dL (75-99)
[2021-03-19 00:58] VITALS: BP 154/96; PULSE 87; RESP 22
== END 2021-03-19 01:00 | disposition home or self-care (01) ==
LOC: EC 22:29
DX: E11.649 Type 2 diabetes mellitus with hypoglycemia without coma (principal); R42 Dizziness and giddiness; E11.40 Type 2 diabetes mellitus with diabetic neuropathy, unspecified; Z79.4 Long term (current) use of insulin; K21.9 Gastro-esophageal reflux disease without esophagitis; Z87.440 Personal history of urinary (tract) infections; F17.200 Nicotine dependence, unspecified, uncomplicated; Z79.899 Other long term (current) drug therapy
CPT/HCPCS: 36415; 80053; 83735; 84100; 84484; 85025; 85610; 85730; 96360; 99285

== ENCOUNTER 2021-04-07 00:45 | Inpatient (IN) | payer OTHER ==
[2021-04-07 01:50] VITALS: TEMP 98.3
[2021-04-07 04:38] LABS: Basophils # (A) 0.1 k/uL (0-0.2); Basophils % (A) 1 %; Eosinophils # (A) 0.1 k/uL (0-0.7); Eosinophils % (A) 1 %; HCT 39.3 % (39.0-53.0); Lymphocytes # (A) 2.1 k/uL (1.0-4.8); Lymphocytes % (A) 22 %; MCH 28.6 pg (25.0-35.0); MCHC 33.1 g/dL (31.0-37.0); MCV 86.4 fL (80.0-100.0); Mean Platelet Volume 7.1; Monocytes # (A) 0.5 k/uL (0-1.0); Monocytes % (A) 6 %; Neutrophils # (A) 6.5 k/uL (1.3-7.7); Neutrophils % (A) 68 %; Platelet Count 349 k/uL (150-450); RBC 4.55 m/uL (4.30-5.90); RDW 12.7 % (11.5-15.5); WBC 9.6 k/uL (3.8-10.6)
[2021-04-07 04:46] LABS: INR 0.9 (<1.2)
[2021-04-07 04:47] LABS: Partial Thromboplastin Time 22.8 sec (22.0-30.0); Prothrombin Time 9.8 sec (9.0-12.0)
[2021-04-07 04:51] LABS: Albumin 3.7 g/dL (3.5-5.0); Calcium 10.3 mg/dL (8.4-10.2); Magnesium 1.9 mg/dL (1.6-2.3); Total Bilirubin 0.4 mg/dL (0.2-1.3); Total Protein 6.5 g/dL (6.3-8.2)
--- NOTE | 2021-04-07 05:15 | XR ---
EXAMINATION TYPE: XR chest 2V DATE OF EXAM: 04/07/2021 COMPARISON: 02/24/2021 HISTORY: Chest pain TECHNIQUE: FINDINGS: Heart and mediastinum are normal. Lungs are clear. Diaphragm is normal. Bony thorax appears normal. IMPRESSION: Normal chest. No change.
[2021-04-07] MEDS ORDERED: SODIUM CHLORIDE 0.9% 1,000 ML IV STA (07:03)
[2021-04-07] MEDS ORDERED: SODIUM CHLORIDE 0.9% 1,000 ML IV ONE (07:03)
[2021-04-07] MEDS ORDERED: NALOXONE 0.4 MG/ML 1 ML VIAL IV PRN (07:05)
[2021-04-07] MEDS ORDERED: SODIUM CHLORIDE 0.9% 1,000 ML IV SCH (07:15)
--- NOTE | 2021-04-07 07:17 | ED ---
General Adult HPI - General Chief complaint: Dizziness Stated complaint: dizziness, [facility] Time Seen by Provider: 04/07/21 03:51 Source: patient Mode of arrival: ambulatory Limitations: no limitations - History of Present Illness Initial comments: This patient is a 50-year-old man who presents here to be evaluated for feeling of lightheadedness and some shortness of breath that had come on this morning. Patient states that he had taken a bus and then gotten off and walked a few minutes to a convenience store. When he got there he found he was lightheaded and short of breath and he had to sit until that his symptoms resolved. Patient states that he then walked onto his job. When he got there he was again feeling lightheaded and short of breath. His employer wanted him to be seen here. The patient did not note chest pain. No diaphoresis, nausea or vomiting. The patient states that he does smoke approximately 2 packs of cigarettes per day. He is diabetic. Onset/Timin -: hour(s) Severity scale (1-10): 0 Consistency: now resolved Improves with: none Worsens with: other Associated Symptoms: shortness of breath Treatments Prior to Arrival: none - Related Data Home Medications Medication Instructions Recorded Confirmed Insulin Aspart [NovoLOG Flexpen] See Protocol SQ AC-TID 07/09/19 03/18/21 Insulin Degludec [Tresiba 50 units SQ DAILY@1700 03/18/21 03/18/21 Flextouch U-200 Pen] Pantoprazole [Protonix] 40 mg PO HS 03/18/21 03/18/21 hydrALAZINE HCL 50 mg PO HS 03/18/21 03/18/21 lisinopriL [Zestril] 40 mg PO HS 03/18/21 03/18/21 Allergies Allergy/AdvReac Type Severity Reaction Status Date / Time No Known Allergies Allergy Verified 04/07/21 01:50 Review of Systems ROS Statement: Those systems with pertinent positive or pertinent negative responses have been documented in the HPI. ROS Other: All systems not noted in ROS Statement are negative. Constitutional: Denies: fever, chills Eyes: Denies: vision change Respiratory: Reports: dyspnea. Denies: cough, wheezes Cardiovascular: Denies: chest pain, palpitations, orthopnea, edema, syncope Gastrointestinal: Denies: abdominal pain, vomiting, diarrhea Genitourinary: Reports: frequency. Denies: urgency, dysuria, hematuria, discharge Musculoskeletal: Denies: arthralgia Skin: Denies: rash, lesions Neurological: Denies: headache, weakness, numbness Past Medical History Past Medical History: Diabetes Mellitus, GERD/Reflux, Renal Disease Additional Past Medical History / Comment(s): IDDM type II, diabetic neuropathy bilateral feet, DKA, renal insufficiency, hypercalemia, past perianal abscess/fistula with surgery, BPH/urinary retention with surgery, UTI. History of Any Multi-Drug Resistant Organisms: None Reported Past Surgical History: No Surgical Hx Reported Additional Past Surgical History / Comment(s): 08/2014 cystoscopy with TURP, rectal exam/I&D/fistulotomy. I&D back Past Anesthesia/Blood Transfusion Reactions: No Reported Reaction Past Psychological History: No Psychological Hx Reported Smoking Status: Current every day smoker Past Alcohol Use History: None Reported Past Drug Use History: None Reported - Past Family History Mother Family Medical History: Diabetes Mellitus Additional Family Medical History / Comment(s): mother is Father Family Medical History: No Reported History Additional Family Medical History / Comment(s): Father is healthy. General Exam Limitations: no limitations General appearance: alert, in no apparent distress Head exam: Present: atraumatic, normocephalic Eye exam: Present: normal appearance. Absent: scleral icterus, conjunctival injection ENT exam: Present: mucous membranes dry Neck exam: Present: normal inspection, full ROM Respiratory exam: Present: normal lung sounds bilaterally. Absent: respiratory distress, wheezes, rales, rhonchi, stridor, accessory muscle use, decreased breath sounds, prolonged expiratory Cardiovascular Exam: Present: regular rate, normal rhythm, normal heart sounds. Absent: systolic murmur, diastolic murmur, rubs, gallop GI/Abdominal exam: Present: soft. Absent: distended, tenderness, guarding, rebound, rigid Extremities exam: Present: normal inspection, normal capillary refill. Absent: pedal edema, calf tenderness Back exam: Present: normal inspection. Absent: CVA tenderness (R), CVA tenderness (L) Neurological exam: Present: alert Skin exam: Present: warm, dry, intact, normal color. Absent: rash Course Vital Signs 04/07/21 04/07/21 01:46 06:31 Temperature 98.3 F Pulse Rate 105 H 93 Respiratory 22 17 Rate Blood Pressure 141/81 108/70 O2 Sat by Pulse 96 97 Oximetry Medical Decision Making - Lab Data Result diagrams: 04/07/21 04:30 04/07/21 04:30 Lab Results 04/07/21 04/07/21 04/07/21 Range/Units 04:30 04:30 04:30 WBC 9.6 (3.8-10.6) k/uL RBC 4.55 (4.30-5.90) m/uL Hgb 13.0 (13.0-17.5) gm/dL Hct 39.3 (39.0-53.0) % MCV 86.4 (80.0-100.0) fL MCH 28.6 (25.0-35.0) pg MCHC 33.1 (31.0-37.0) g/dL RDW 12.7 (11.5-15.5) % Plt Count 349 (150-450) k/uL MPV 7.1 Neutrophils % 68 % Lymphocytes % 22 % Monocytes % 6 % Eosinophils % 1 % Basophils % 1 % Neutrophils # 6.5 (1.3-7.7) k/uL Lymphocytes # 2.1 (1.0-4.8) k/uL Monocytes # 0.5 (0-1.0) k/uL Eosinophils # 0.1 (0-0.7) k/uL Basophils # 0.1 (0-0.2) k/uL PT 9.8 (9.0-12.0) sec INR 0.9 (<1.2) APTT 22.8 (22.0-30.0) sec Sodium 131 L (137-145) mmol/L Potassium 5.0 (3.5-5.1) mmol/L Chloride 99 (98-107) mmol/L Carbon Dioxide 22 (22-30) mmol/L Anion Gap 10 mmol/L BUN 76 H (9-20) mg/dL Creatinine 5.88 H (0.66-1.25) mg/dL Est GFR (CKD-EPI)AfAm 12 (>60 ml/min/1.73 sqM) Est GFR (CKD-EPI)NonAf 10 (>60 ml/min/1.73 sqM) Glucose 358 H (74-99) mg/dL Calcium 10.3 H (8.4-10.2) mg/dL Magnesium 1.9 (1.6-2.3) mg/dL Total Bilirubin 0.4 (0.2-1.3) mg/dL AST 13 L (17-59) U/L ALT 11 (4-49) U/L Alkaline Phosphatase 121 (38-126) U/L Troponin I (0.000-0.034) ng/mL Total Protein 6.5 (6.3-8.2) g/dL Albumin 3.7 (3.5-5.0) g/dL 04/07/21 Range/Units 04:30 WBC (3.8-10.6) k/uL RBC (4.30-5.90) m/uL Hgb (13.0-17.5) gm/dL Hct (39.0-53.0) % MCV (80.0-100.0) fL MCH (25.0-35.0) pg MCHC (31.0-37.0) g/dL RDW (11.5-15.5) % Plt Count (150-450) k/uL MPV Neutrophils % % Lymphocytes % % Monocytes % % Eosinophils % % Basophils % % Neutrophils # (1.3-7.7) k/uL Lymphocytes # (1.0-4.8) k/uL Monocytes # (0-1.0) k/uL Eosinophils # (0-0.7) k/uL Basophils # (0-0.2) k/uL PT (9.0-12.0) sec INR (<1.2) APTT (22.0-30.0) sec Sodium (137-145) mmol/L Potassium (3.5-5.1) mmol/L Chloride (98-107) mmol/L Carbon Dioxide (22-30) mmol/L Anion Gap mmol/L BUN (9-20) mg/dL Creatinine (0.66-1.25) mg/dL Est GFR (CKD-EPI)AfAm (>60 ml/min/1.73 sqM) Est GFR (CKD-EPI)NonAf (>60 ml/min/1.73 sqM) Glucose (74-99) mg/dL Calcium (8.4-10.2) mg/dL Magnesium (1.6-2.3) mg/dL Total Bilirubin (0.2-1.3) mg/dL AST (17-59) U/L ALT (4-49) U/L Alkaline Phosphatase (38-126) U/L Troponin I <0.012 (0.000-0.034) ng/mL Total Protein (6.3-8.2) g/dL Albumin (3.5-5.0) g/dL Disposition Clinical Impression: Chronic kidney disease, Acute renal failure, Diabetes mellitus Disposition: ADMITTED IP TO THIS HOSP Condition: Fair
[2021-04-07 08:23] VITALS: RESP 16
--- NOTE | 2021-04-07 08:37 | P.HPIM ---
History of Present Illness Chief Complaint: Dizziness This is a history and physical on a 50-year-old white male with known history of diabetes. He has an underlying history of malignant melanoma and states on his way to work, on the midnight shift he states significant dizziness. He rested for about 15 minutes and walk to work area the patient then had significant dizziness where he was unable to continue working. Workup in the emergency room did show acute renal kidney injury. The patient's creatinine is up to 5.8. His baseline typically isn't 3. However because of his dizziness and continued episodic problems, he is appropriately admitted. Nephrology and cardiology are now consulted. He states no overt anginal equivalent type chest pain. Review of Systems Constitutional: Denies chills, Denies fever Eyes: denies blurred vision, denies pain Ears, nose, mouth and throat: Denies headache, Denies sore throat Cardiovascular: Reports as per HPI, Denies claudication Respiratory: Denies cough Musculoskeletal: Denies myalgias Neurological: Reports as per HPI, Reports balance difficulties Past Medical History Past Medical History: Diabetes Mellitus, GERD/Reflux, Renal Disease Additional Past Medical History / Comment(s): IDDM type II, diabetic neuropathy bilateral feet, DKA, renal insufficiency, hypercalemia, past perianal abscess/fistula with surgery, BPH/urinary retention with surgery, UTI. History of Any Multi-Drug Resistant Organisms: None Reported Past Surgical History: No Surgical Hx Reported Additional Past Surgical History / Comment(s): 08/2014 cystoscopy with TURP, rectal exam/I&D/fistulotomy. I&D back Past Anesthesia/Blood Transfusion Reactions: No Reported Reaction Past Psychological History: No Psychological Hx Reported Smoking Status: Current every day smoker Past Alcohol Use History: None Reported Past Drug Use History: None Reported - Past Family History Mother Family Medical History: Diabetes Mellitus Additional Family Medical History / Comment(s): mother is Father Family Medical History: No Reported History Additional Family Medical History / Comment(s): Father is healthy. Medications and Allergies Home Medications Medication Instructions Recorded Confirmed Type Insulin Aspart [NovoLOG Flexpen] See Protocol SQ AC-TID PRN MDD 07/09/1903/17 History OVER 400 Insulin Degludec [Tresiba 30 units SQ HS 03/18/21 04/07/21 History Flextouch U-200 Pen] Pantoprazole [Protonix] 40 mg PO HS 03/18/21 04/07/21 History hydrALAZINE HCL 50 mg PO HS 03/18/21 04/07/21 History lisinopriL [Zestril] 40 mg PO HS 03/18/21 04/07/21 History Lansoprazole 30 mg PO DAILY 04/07/21 04/07/21 History Allergies Allergy/AdvReac Type Severity Reaction Status Date / Time No Known Allergies Allergy Verified 04/07/21 07:54 Physical Exam Vitals: Vital Signs Temp Pulse Resp BP Pulse Ox 04/07/21 08:22 98 16 129/83 100 04/07/21 06:31 93 17 108/70 97 04/07/21 01:46 98.3 F 105 H 22 141/81 96 Intake and Output 04/06/21 04/07/21 04/07/21 22:59 06:59 14:59 Other: Weight 95.254 kg - Constitutional General appearance: cooperative, no acute distress - EENT Eyes: EOMI - Respiratory Respiratory: bilateral: CTA - Cardiovascular Rhythm: regular Heart sounds: normal: S1, S2 Abnormal Heart Sounds: no S3 Gallop - Gastrointestinal General gastrointestinal: soft, no tenderness - Integumentary Integumentary: no cellulitis - Psychiatric Psychiatric: A&O x's 3 Results CBC & Chem 7: 04/07/21 04:30 04/07/21 04:30 Labs: Abnormal Lab Results - Last 24 Hours (Table) 04/07/21 Range/Units 04:30 Sodium 131 L (137-145) mmol/L BUN 76 H (9-20) mg/dL Creatinine 5.88 H (0.66-1.25) mg/dL Glucose 358 H (74-99) mg/dL Calcium 10.3 H (8.4-10.2) mg/dL AST 13 L (17-59) U/L Assessment and Plan (1) History of melanoma Current Visit: Yes Status: Acute Code(s): Z85.820 - PERSONAL HISTORY OF MALIGNANT MELANOMA OF SKIN SNOMED Code(s): 857100829 (2) Acute renal failure Current Visit: Yes Status: Acute Code(s): N17.9 - ACUTE KIDNEY FAILURE, UNSPECIFIED SNOMED Code(s): 66222378 (3) Chronic kidney disease Current Visit: Yes Status: Acute Code(s): N18.9 - CHRONIC KIDNEY DISEASE, UNSPECIFIED SNOMED Code(s): 897655159 (4) Diabetes mellitus Current Visit: Yes Status: Acute Code(s): E11.9 - TYPE 2 DIABETES MELLITUS WITHOUT COMPLICATIONS SNOMED Code(s): 31713861 Plan: We'll go ahead and do standard syncopal-type workup. Echocardiogram to be ordered. Place on sliding scale. Appreciate cardiology input and nephrology. See orders otherwise. Check CMP in a.m.
[2021-04-07] MEDS ORDERED: PANTOPRAZOLE 40 MG TABLET PO SCH ×2 (09:00→21:00)
[2021-04-07] MEDS: INSULIN REGULAR 100 UNIT/ML VIAL (IV) SQ STA ×2 (11:19→11:29)
[2021-04-07 11:27] LABS: Glucose,Whole Blood 223 mg/dL (75-99)
--- NOTE | 2021-04-07 12:05 | P.CRDCN ---
History of Present Illness History of present illness: HISTORY OF PRESENTING ILLNESS This is a pleasant 50-year-old female past medical history significant for chronic kidney disease, type 2 diabetes, BPH, chronic nicotine dependence. 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 We have been asked to see in consultation for dizziness. Patient presents emergency department with complaints of dizziness. He states lately when he walks to work about 1/4 mile after he takes the bus he feels dizzy. He feels as if it is getting worse. It only happens with exercise/long walks. He denies any chest pain, palpitations, shortness of breath, lightheadedness, presyncope or syncope. He denies any symptoms of orthopnea PND. He is a current every day smoker about 2PPD. Denies alcohol use. She denies any family history of coronary artery disease. He denies seeing a captain/airline pilot DIAGNOSTICS EKG reveals sinus rhythm, heart rate 97, nonspecific ST ST-T wave abnormalities. Telemetry tracings indicate sinus mechanism with PVCs. Chest xray no acute cardiopulmonary process. Laboratory reviewed, CBC unremarkable, sodium 131, potassium 5.0, BUN 76, serum creatinine 5.8, magnesium 1.9, troponin negative 2, COVID-19 procedure negative. Current home medications include lisinopril 40 mg nightly, hydralazine 50 mg nightly, Protonix, lansoprazole, insulin REVIEW OF SYSTEMS At the time of my exam: CONSTITUTIONAL: Denies fever or chills. CARDIOVASCULAR: Denies chest pain, shortness of breath, orthopnea, PND or palpitations. RESPIRATORY: Denies cough. GASTROINTESTINAL: Denies abdominal pain, diarrhea, constipation, nausea or vomiting. MUSCULOSKELETAL: Denies myalgias. NEUROLOGIC: +Dizziness Denies numbness, tingling, headacbe or weakness. ENDOCRINE: Denies fatigue, weight change, polydipsia or polyurina. GENITOURINARY: Denies burning, hematuria or urgency with micturation. HEMATOLOGIC: Denies history of anemia or bleeding. PHYSICAL EXAMINATION Blood pressure 129/83, 98, afebrile Echo saturations greater than 92% on room air CONSTITUTIONAL: No apparent distress. HEENT: Head is normocephalic. Pupils are equal, round. Sclerae anicteric. Mucous membranes of the mouth are moist. No JVD. No carotid bruit. CHEST EXAMINATION: Lungs are clear to auscultation. No chest wall tenderness is noted on palpation or with deep breathing. HEART EXAMINATION: Regular rate and rhythm. S1, S2 heard. No murmurs, gallops or rub. ABDOMEN: Soft, nontender. Positive bowel sounds. EXTREMITIES: 2+ peripheral pulses, no lower extremity edema and no calf tenderness. NEUROLOGIC EXAMINATION: Patient is awake, alert and oriented x3. ASSESSMENT Dizziness with exercise/activity, acute coronary syndrome ruled out Type 2 Diabetes Acute kidney injury Chronic kidney disease Hypertension PLAN Obtain 2D echocardiogram Continue cardiac telemetry Recommend stress echo test tomorrow, patient is in agreement ACEI on hold due to acute kidney injury Nephrology consulted Further recommendations based on clinical course/above workup Nurse Practitioner note has been reviewed, I agree with a documented findings and plan of care. Patient was seen and examined. Past Medical History Past Medical History: Diabetes Mellitus, GERD/Reflux, Renal Disease Additional Past Medical History / Comment(s): IDDM type II, diabetic neuropathy bilateral feet, DKA, renal insufficiency, hypercalemia, past perianal abscess/fistula with surgery, BPH/urinary retention with surgery, UTI. History of Any Multi-Drug Resistant Organisms: None Reported Past Surgical History: No Surgical Hx Reported Additional Past Surgical History / Comment(s): 08/2014 cystoscopy with TURP, rectal exam/I&D/fistulotomy. I&D back Past Anesthesia/Blood Transfusion Reactions: No Reported Reaction Past Psychological History: No Psychological Hx Reported Smoking Status: Current every day smoker Past Alcohol Use History: None Reported Past Drug Use History: None Reported - Past Family History Mother Family Medical History: Diabetes Mellitus Additional Family Medical History / Comment(s): mother is Father Family Medical History: No Reported History Additional Family Medical History / Comment(s): Father is healthy. Medications and Allergies Home Medications Medication Instructions Recorded Confirmed Type Insulin Aspart [NovoLOG Flexpen] See Protocol SQ AC-TID PRN MDD 07/09/19 04/07/21 History OVER 400 Insulin Degludec [Tresiba 30 units SQ HS 03/18/21 04/07/21 History Flextouch U-200 Pen] Pantoprazole [Protonix] 40 mg PO HS 03/18/21 04/07/21 History hydrALAZINE HCL 50 mg PO HS 03/18/21 04/07/21 History lisinopriL [Zestril] 40 mg PO HS 03/18/21 04/07/21 History Lansoprazole 30 mg PO DAILY 04/07/21 04/07/21 History Allergies Allergy/AdvReac Type Severity Reaction Status Date / Time No Known Allergies Allergy Verified 04/07/21 07:54 Physical Exam Vitals: Vital Signs Temp Pulse Resp BP Pulse Ox 04/07/21 08:22 98 16 129/83 100 04/07/21 06:31 93 17 108/70 97 04/07/21 01:46 98.3 F 105 H 22 141/81 96 Intake and Output 04/06/21 04/07/21 04/07/21 22:59 06:59 14:59 Other: Weight 95.254 kg Results 04/07/21 04:30 04/07/21 04:30 Cardiac Enzymes 04/07/21 04/07/21 Range/Units 04:30 04:30 AST 13 L (17-59) U/L Troponin I <0.012 (0.000-0.034) ng/mL Coagulation 04/07/21 Range/Units 04:30 PT 9.8 (9.0-12.0) sec APTT 22.8 (22.0-30.0) sec CBC 04/07/21 Range/Units 04:30 WBC 9.6 (3.8-10.6) k/uL RBC 4.55 (4.30-5.90) m/uL Hgb 13.0 (13.0-17.5) gm/dL Hct 39.3 (39.0-53.0) % Plt Count 349 (150-450) k/uL Comprehensive Metabolic Panel 04/07/21 Range/Units 04:30 Sodium 131 L (137-145) mmol/L Potassium 5.0 (3.5-5.1) mmol/L Chloride 99 (98-107) mmol/L Carbon Dioxide 22 (22-30) mmol/L BUN 76 H (9-20) mg/dL Creatinine 5.88 H (0.66-1.25) mg/dL Glucose 358 H (74-99) mg/dL Calcium 10.3 H (8.4-10.2) mg/dL AST 13 L (17-59) U/L ALT 11 (4-49) U/L Alkaline Phosphatase 121 (38-126) U/L Total Protein 6.5 (6.3-8.2) g/dL Albumin 3.7 (3.5-5.0) g/dL Current Medications Generic Name Dose Route Start Last Admin Trade Name Freq PRN Reason Stop Dose Admin Hydralazine HCl 50 mg 04/07/21 21:00 Hydralazine Hcl 50 Mg Tab PO HS SHIRLEY Sodium Chloride 1,000 mls @ 75 mls/hr 04/07/21 07:03 Saline 0.9% IV 04/07/21 20:22 .[id number] STA Sodium Chloride 1,000 mls @ 75 mls/hr 04/07/21 07:15 Saline 0.9% IV .[id number] SHIRLEY Naloxone HCl 0.2 mg 04/07/21 07:05 Naloxone 0.4 Mg/Ml 1 Ml Vial IV Q2M PRN Opioid Reversal Pantoprazole Sodium 40 mg 04/07/21 09:00 Pantoprazole 40 Mg Tablet PO DAILY@0730 SHIRLEY Pantoprazole Sodium 40 mg 04/07/21 21:00 Pantoprazole 40 Mg Tablet PO HS SHIRLEY Intake and Output 04/06/21 04/07/21 04/07/21 22:59 06:59 14:59 Other: Weight 95.254 kg 04/07/21 04:30 04/07/21 04:30
--- NOTE | 2021-04-07 12:12 | P.NPCON ---
History of Present Illness - Reason for Consult acute renal failure, chronic renal failure - History of Present Illness Reason for consultation: Acute kidney injury on chronic kidney disease History of present illness: Patient is a 50-year-old male seen in renal consultation for acute kidney injury on chronic kidney disease. Patient has chronic kidney disease stage III with baseline creatinine in the range of 1.2-1.3 from June and July 2019. Patient was recently admitted to the hospital in February 2021 and at that time his creatinine was in the range of 3.5-4.5. During that admission he was admitted for DKA. Patient states he's been a diabetic for several years. Patient presented to the hospital due to lightheadedness and shortness of breath. He denies any vomiting or diarrhea. Denies use of nonsteroidals. No syncopal episodes. No fever or chills. He tested negative for coronavirus. Creatinine on admission was 5.88. Blood sugar was 358. According to the nurse he is refusing to take his insulin. Blood pressures stable. Denies any hematuria or dysuria. Vital signs are stable. General: The patient appeared well nourished and normally developed. HEENT: Head exam is unremarkable. LUNGS: Breath sounds decreased. HEART: Rate and Rhythm are regular. ABDOMEN: Soft, no distention. EXTREMITITES: No edema. Past Medical History Past Medical History: Diabetes Mellitus, GERD/Reflux, Renal Disease Additional Past Medical History / Comment(s): IDDM type II, diabetic neuropathy bilateral feet, DKA, renal insufficiency, hypercalemia, past perianal abscess/fistula with surgery, BPH/urinary retention with surgery, UTI. History of Any Multi-Drug Resistant Organisms: None Reported Past Surgical History: No Surgical Hx Reported Additional Past Surgical History / Comment(s): 08/2014 cystoscopy with TURP, rectal exam/I&D/fistulotomy. I&D back Past Anesthesia/Blood Transfusion Reactions: No Reported Reaction Past Psychological History: No Psychological Hx Reported Smoking Status: Current every day smoker Past Alcohol Use History: None Reported Past Drug Use History: None Reported - Past Family History Mother Family Medical History: Diabetes Mellitus Additional Family Medical History / Comment(s): mother is Father Family Medical History: No Reported History Additional Family Medical History / Comment(s): Father is healthy. Medications and Allergies Home Medications Medication Instructions Recorded Confirmed Type Insulin Aspart [NovoLOG Flexpen] See Protocol SQ AC-TID PRN MDD 07/09/19 04/07/21 History OVER 400 Insulin Degludec [Tresiba 30 units SQ HS 03/18/21 04/07/21 History Flextouch U-200 Pen] Pantoprazole [Protonix] 40 mg PO HS 03/18/21 04/07/21 History hydrALAZINE HCL 50 mg PO HS 03/18/21 04/07/21 History lisinopriL [Zestril] 40 mg PO HS 03/18/21 04/07/21 History Lansoprazole 30 mg PO DAILY 04/07/21 04/07/21 History Allergies Allergy/AdvReac Type Severity Reaction Status Date / Time No Known Allergies Allergy Verified 04/07/21 07:54 Physical Exam Vitals: Vital Signs Temp Pulse Resp BP Pulse Ox 04/07/21 08:22 98 16 129/83 100 04/07/21 06:31 93 17 108/70 97 04/07/21 01:46 98.3 F 105 H 22 141/81 96 Intake and Output 04/06/21 04/07/21 04/07/21 22:59 06:59 14:59 Other: Weight 95.254 kg Results - Lab Results Most recent lab results Calcium 10.3 mg/dL (8.4-10.2) H 04/07/21 04:30 Magnesium 1.9 mg/dL (1.6-2.3) 04/07/21 04:30 04/07/21 04:30 04/07/21 04:30 Assessment and Plan Plan: Assessment: 1. Acute kidney injury due to hypovolemic, versus progression of underlying chronic kidney disease. Creatinine in February 2021 was in the range of 3.5-4.5. 5.88 today. Rule out urinary retention and obstructive uropathy. 2. Chronic kidney disease stage III with baseline creatinine in the range of 1.2-1.5 in June and July 2019. 3. Diabetes mellitus. 4. Hypertension with chronic kidney disease. Stable. 5. Hypercalcemia secondary to volume contraction. 6. Hypertonic hyponatremia secondary to hyperglycemia. Plan: Start normal saline at 75 mL an hour. He also received a liter bolus on admission. Hold all antihypertensives. Check bladder scan to rule out urinary retention. Check renal ultrasound. Check urinalysis. Repeat labs in the morning. Thank you for the consultation. I will continue to follow the patient with you during his hospital stay.
[2021-04-07 12:15] VITALS: BP 179/100; PULSE 93
--- NOTE | 2021-04-07 13:28 | ECHOF ---
Referral Reason:Dizziness MEASUREMENTS -------- HEIGHT: 175.3 cm WEIGHT: 95.3 kg BP: IVSd: 1.4 cm (0.6 - 1.1) LVIDd: 4.5 cm (3.9 - 5.3) LVPWd: 1.2 cm (0.6 - 1.1) IVSs: 1.9 cm LVIDs: 2.2 cm LVPWs: 2.1 cm Ao Diam: 3.1 cm (2.0 - 3.7) AV Cusp: 1.8 cm (1.5 - 2.6) LA Diam: 2.8 cm (2.7 - 3.8) MV EXCURSION: 15.271 mm (> 18.000) MV EF SLOPE: 100 mm/s (70 - 150) EPSS: 0.5 cm MV E Eduardo: 0.68 m/s MV DecT: 117 ms MV A Eduardo: 0.56 m/s MV E/A Ratio: 1.21 RAP: 5.00 mmHg RVSP: 10.25 mmHg FINDINGS -------- This was a technically difficult study with suboptimal views. The left ventricular size is normal. There is moderate concentric left ventricular hypertrophy. O verall left ventricular systolic function is normal with, an EF between 55 - 60 %. The right ventricle is normal in size. The left atrial size is normal. The right atrial size is normal. Lumason used The aortic valve is trileaflet and appears structurally normal. The mitral valve is normal. The mitral valve leaflets are mildly thickened. Mild mitral regurgita tion is present. The tricuspid valve appears structurally normal. Mild tricuspid regurgitation present. Right vent ricular systolic pressure is normal at < 35 mmHg. There is no pulmonic regurgitation present. The aortic root size is normal. IVC Not well visulized. There is no pericardial effusion. CONCLUSIONS -------- 1. The left ventricular size is normal. 2. There is moderate concentric left ventricular hypertrophy. 3. Overall left ventricular systolic function is normal with, an EF between 55 - 60 %. 4. The mitral valve leaflets are mildly thickened. 5. Mild mitral regurgitation is present. 6. Mild tricuspid regurgitation present. 7. There is no pericardial effusion. HEARING THERAPY DIRECTOR: Erinn Morales RDCS
[2021-04-07] MEDS ORDERED: hydrALAZINE HCL 50 MG TAB PO SCH (21:00)
== END 2021-04-07 12:30 | disposition left against medical advice (07) | DRG 683 ==
LOC: EC 00:45 → 3SCARD 07:05 → UNDODISIN 12:30
PROVIDERS: ADMIT Family Medicine; ATTEND Family Medicine
DX: N17.9 Acute kidney failure, unspecified (principal); E87.1 Hypo-osmolality and hyponatremia; E11.22 Type 2 diabetes mellitus with diabetic chronic kidney disease; I12.9 Hypertensive chronic kidney disease with stage 1 through stage 4 chronic kidney disease, or unspecified chronic kidney disease; Z20.822 Contact with and (suspected) exposure to COVID-19; E11.40 Type 2 diabetes mellitus with diabetic neuropathy, unspecified; E11.65 Type 2 diabetes mellitus with hyperglycemia; E83.52 Hypercalcemia; E86.1 Hypovolemia; F17.210 Nicotine dependence, cigarettes, uncomplicated; I08.1 Rheumatic disorders of both mitral and tricuspid valves; I49.3 Ventricular premature depolarization; N18.30 Chronic kidney disease, stage 3 unspecified; N40.0 Benign prostatic hyperplasia without lower urinary tract symptoms; Z79.4 Long term (current) use of insulin; Z79.899 Other long term (current) drug therapy; Z85.820 Personal history of malignant melanoma of skin
CPT/HCPCS: 36415; 71046; 80053; 83735; 84484; 85025; 85610; 85730; 87635; 93005; 93306; 99285

== ENCOUNTER 2021-07-30 19:15 | Emergency (ER) | payer OTHER ==
[2021-07-30 19:19] LABS: Glucose,Whole Blood 81 mg/dL (75-99)
[2021-07-30] MEDS ORDERED: LORazepam 2 MG/ML INJ IV STA (19:20)
[2021-07-30 19:22] VITALS: TEMP 98.2
--- NOTE | 2021-07-30 19:37 | ED ---
General Adult HPI - General Chief complaint: Altered Mental Status Stated complaint: alter mental status Time Seen by Provider: 07/30/21 19:18 Source: patient, EMS, RN notes reviewed, old records reviewed Mode of arrival: EMS Limitations: altered mental status - History of Present Illness Initial comments: 50-year-old male presenting with paramedics for altered level of consciousness. Patient is somewhat combative. He was transported by paramedics, noted to have a initial blood sugar of 68. He was given oral glucose. Patient will only say help me. He's not getting any further answers to questions. He will not respond to questions regarding pain. He does have history of diabetes. There is no known history of alcohol or illicit drugs. - Related Data Home Medications Medication Instructions Recorded Confirmed Insulin Aspart [NovoLOG Flexpen] See Protocol SQ AC-TID 07/09/19 07/30/21 Insulin Degludec [Tresiba 30 units SQ HS 03/18/21 07/30/21 Flextouch U-200 Pen] hydrALAZINE HCL 50 mg PO HS 03/18/21 07/30/21 lisinopriL [Zestril] 40 mg PO HS 03/18/21 07/30/21 Lansoprazole 30 mg PO DAILY 04/07/21 07/30/21 Allergies Allergy/AdvReac Type Severity Reaction Status Date / Time No Known Allergies Allergy Verified 07/30/21 21:24 Review of Systems ROS Statement: Those systems with pertinent positive or pertinent negative responses have been documented in the HPI. ROS Other: All systems not noted in ROS Statement are negative. Past Medical History Past Medical History: Diabetes Mellitus, GERD/Reflux, Renal Disease Additional Past Medical History / Comment(s): IDDM type II, diabetic neuropathy bilateral feet, DKA, renal insufficiency, hypercalemia, past perianal abscess/fistula with surgery, BPH/urinary retention with surgery, UTI. History of Any Multi-Drug Resistant Organisms: None Reported Past Surgical History: No Surgical Hx Reported Additional Past Surgical History / Comment(s): 08/2014 cystoscopy with TURP, rectal exam/I&D/fistulotomy. I&D back Past Anesthesia/Blood Transfusion Reactions: No Reported Reaction Past Psychological History: No Psychological Hx Reported Smoking Status: Current every day smoker Past Alcohol Use History: None Reported Past Drug Use History: None Reported - Past Family History Mother Family Medical History: Diabetes Mellitus Additional Family Medical History / Comment(s): mother is Father Family Medical History: No Reported History Additional Family Medical History / Comment(s): Father is healthy. General Exam Limitations: altered mental status General appearance: alert, anxious Head exam: Present: atraumatic, normocephalic Eye exam: Present: normal appearance, PERRL Neck exam: Present: normal inspection, tenderness Respiratory exam: Present: normal lung sounds bilaterally. Absent: respiratory distress, wheezes Cardiovascular Exam: Present: normal rhythm, tachycardia GI/Abdominal exam: Present: soft. Absent: distended, tenderness, guarding Extremities exam: Present: normal inspection, normal capillary refill Neurological exam: Present: alert, other (Patient moving all extremities symmetrically.). Absent: oriented X3 Psychiatric exam: Present: agitated, anxious Skin exam: Present: warm, dry, intact. Absent: cyanosis, diaphoretic Course Vital Signs 07/30/21 07/30/21 07/30/21 19:19 20:22 21:30 Temperature 98.2 F Pulse Rate 113 H 113 H 108 H Respiratory 16 20 18 Rate Blood Pressure 139/89 179/96 141/85 O2 Sat by Pulse 100 98 97 Oximetry EKG Findings - EKG Comments: EKG Findings:: Current tachycardia no ST segment elevation rate of 114, GA interval 154, QRS duration 84, QTC 372. Medical Decision Making - Medical Decision Making 50-year-old male with presented with acute confusion and agitation. He was hypoglycemic although this level was 64 by paramedics. They not totally explain his change in mentation. He was combative and was evaluated as a possible stroke initially as well as concern for metabolic issues. Laboratory testing, EKG, chest x-ray, CT CT angiography this was performed urgently the emergency department. His chest x-ray showed a minimal bilateral infiltrate. His head CT was negative for intracranial hemorrhage or mass effect. CT angiography was negative for large occlusion or acute intracranial abnormality. He had a normal white blood cell count, hemoglobin of 11. He was in renal failure with a BUN of 53 and a creatinine of 4.48 which is baseline for this patient. He has a negative urinalysis. Negative urine drug screen, negative alcohol level. I discussed case with Dr. Leni travis for [facility] hospitalists. Plan was to admit this patient for further evaluation including possible neurology consultation. The patient does regain his level of consciousness or in the emergency department. He is alert and oriented. He is pacing the room. He is wishing to be discharged. He is informed of the risks and is able to sign out AGAINST MEDICAL ADVICE. - Lab Data Result diagrams: 07/30/21 19:42 07/30/21 19:42 Lab Results 07/30/21 07/30/21 07/30/21 Range/Units 19:18 19:42 19:42 WBC 10.2 (3.8-10.6) k/uL RBC 3.91 L (4.30-5.90) m/uL Hgb 11.1 L (13.0-17.5) gm/dL Hct 32.7 L (39.0-53.0) % MCV 83.6 (80.0-100.0) fL MCH 28.5 (25.0-35.0) pg MCHC 34.1 (31.0-37.0) g/dL RDW 13.8 (11.5-15.5) % Plt Count 344 (150-450) k/uL MPV 7.7 Neutrophils % 86 % Lymphocytes % 6 % Monocytes % 5 % Eosinophils % 1 % Basophils % 1 % Neutrophils # 8.8 H (1.3-7.7) k/uL Lymphocytes # 0.6 L (1.0-4.8) k/uL Monocytes # 0.5 (0-1.0) k/uL Eosinophils # 0.1 (0-0.7) k/uL Basophils # 0.1 (0-0.2) k/uL PT 10.2 (9.0-12.0) sec INR 0.9 (<1.2) APTT 24.4 (22.0-30.0) sec Sodium (137-145) mmol/L Potassium (3.5-5.1) mmol/L Chloride (98-107) mmol/L Carbon Dioxide (22-30) mmol/L Anion Gap mmol/L BUN (9-20) mg/dL Creatinine (0.66-1.25) mg/dL Est GFR (CKD-EPI)AfAm (>60 ml/min/1.73 sqM) Est GFR (CKD-EPI)NonAf (>60 ml/min/1.73 sqM) Glucose (74-99) mg/dL POC Glucose (mg/dL) 81 (75-99) mg/dL POC Glu Elect Equip Maint Eng ID Dana Pantoja Plasma Lactic Acid Jcarlos (0.7-2.0) mmol/L Calcium (8.4-10.2) mg/dL Total Bilirubin (0.2-1.3) mg/dL AST (17-59) U/L ALT (4-49) U/L Alkaline Phosphatase (38-126) U/L Ammonia (<30) umol/L Troponin I (0.000-0.034) ng/mL Total Protein (6.3-8.2) g/dL Albumin (3.5-5.0) g/dL Urine Color Urine Appearance (Clear) Urine pH (5.0-8.0) Ur Specific [place] (1.001-1.035) Urine Protein (Negative) Urine Glucose (UA) (Negative) Urine Ketones (Negative) Urine Blood (Negative) Urine Nitrite (Negative) Urine Bilirubin (Negative) Urine Urobilinogen (<2.0) mg/dL Ur Leukocyte Esterase (Negative) Urine RBC (0-5) /hpf Urine WBC (0-5) /hpf Urine Opiates Screen (NotDetected) Ur Oxycodone Screen (NotDetected) Urine Methadone Screen (NotDetected) Ur Propoxyphene Screen (NotDetected) Ur Barbiturates Screen (NotDetected) U Tricyclic Antidepress (NotDetected) Ur Phencyclidine Scrn (NotDetected) Ur Amphetamines Screen (NotDetected) U Methamphetamines Scrn (NotDetected) U Benzodiazepines Scrn (NotDetected) Urine Cocaine Screen (NotDetected) U Marijuana (THC) Screen (NotDetected) Serum Alcohol mg/dL 07/30/21 07/30/21 07/30/21 Range/Units 19:42 19:42 19:42 WBC (3.8-10.6) k/uL RBC (4.30-5.90) m/uL Hgb (13.0-17.5) gm/dL Hct (39.0-53.0) % MCV (80.0-100.0) fL MCH (25.0-35.0) pg MCHC (31.0-37.0) g/dL RDW (11.5-15.5) % Plt Count (150-450) k/uL MPV Neutrophils % % Lymphocytes % % Monocytes % % Eosinophils % % Basophils % % Neutrophils # (1.3-7.7) k/uL Lymphocytes # (1.0-4.8) k/uL Monocytes # (0-1.0) k/uL Eosinophils # (0-0.7) k/uL Basophils # (0-0.2) k/uL PT (9.0-12.0) sec INR (<1.2) APTT (22.0-30.0) sec Sodium 136 L (137-145) mmol/L Potassium 4.7 (3.5-5.1) mmol/L Chloride 108 H (98-107) mmol/L Carbon Dioxide 18 L (22-30) mmol/L Anion Gap 10 mmol/L BUN 53 H (9-20) mg/dL Creatinine 4.98 H (0.66-1.25) mg/dL Est GFR (CKD-EPI)AfAm 14 (>60 ml/min/1.73 sqM) Est GFR (CKD-EPI)NonAf 12 (>60 ml/min/1.73 sqM) Glucose 84 (74-99) mg/dL POC Glucose (mg/dL) (75-99) mg/dL POC Glu Elect Equip Maint Eng ID Plasma Lactic Acid Jcarlos 1.3 (0.7-2.0) mmol/L Calcium 8.9 (8.4-10.2) mg/dL Total Bilirubin 0.6 (0.2-1.3) mg/dL AST 14 L (17-59) U/L ALT 11 (4-49) U/L Alkaline Phosphatase 100 (38-126) U/L Ammonia <9 (<30) umol/L Troponin I <0.012 (0.000-0.034) ng/mL Total Protein 6.3 (6.3-8.2) g/dL Albumin 3.6 (3.5-5.0) g/dL Urine Color Urine Appearance (Clear) Urine pH (5.0-8.0) Ur Specific [place] (1.001-1.035) Urine Protein (Negative) Urine Glucose (UA) (Negative) Urine Ketones (Negative) Urine Blood (Negative) Urine Nitrite (Negative) Urine Bilirubin (Negative) Urine Urobilinogen (<2.0) mg/dL Ur Leukocyte Esterase (Negative) Urine RBC (0-5) /hpf Urine WBC (0-5) /hpf Urine Opiates Screen (NotDetected) Ur Oxycodone Screen (NotDetected) Urine Methadone Screen (NotDetected) Ur Propoxyphene Screen (NotDetected) Ur Barbiturates Screen (NotDetected) U Tricyclic Antidepress (NotDetected) Ur Phencyclidine Scrn (NotDetected) Ur Amphetamines Screen (NotDetected) U Methamphetamines Scrn (NotDetected) U Benzodiazepines Scrn (NotDetected) Urine Cocaine Screen (NotDetected) U Marijuana (THC) Screen (NotDetected) Serum Alcohol <10 mg/dL 07/30/21 Range/Units 19:58 WBC (3.8-10.6) k/uL RBC (4.30-5.90) m/uL Hgb (13.0-17.5) gm/dL Hct (39.0-53.0) % MCV (80.0-100.0) fL MCH (25.0-35.0) pg MCHC (31.0-37.0) g/dL RDW (11.5-15.5) % Plt Count (150-450) k/uL MPV Neutrophils % % Lymphocytes % % Monocytes % % Eosinophils % % Basophils % % Neutrophils # (1.3-7.7) k/uL Lymphocytes # (1.0-4.8) k/uL Monocytes # (0-1.0) k/uL Eosinophils # (0-0.7) k/uL Basophils # (0-0.2) k/uL PT (9.0-12.0) sec INR (<1.2) APTT (22.0-30.0) sec Sodium (137-145) mmol/L Potassium (3.5-5.1) mmol/L Chloride (98-107) mmol/L Carbon Dioxide (22-30) mmol/L Anion Gap mmol/L BUN (9-20) mg/dL Creatinine (0.66-1.25) mg/dL Est GFR (CKD-EPI)AfAm (>60 ml/min/1.73 sqM) Est GFR (CKD-EPI)NonAf (>60 ml/min/1.73 sqM) Glucose (74-99) mg/dL POC Glucose (mg/dL) (75-99) mg/dL POC Glu Elect Equip Maint Eng ID Plasma Lactic Acid Jcarlos (0.7-2.0) mmol/L Calcium (8.4-10.2) mg/dL Total Bilirubin (0.2-1.3) mg/dL AST (17-59) U/L ALT (4-49) U/L Alkaline Phosphatase (38-126) U/L Ammonia (<30) umol/L Troponin I (0.000-0.034) ng/mL Total Protein (6.3-8.2) g/dL Albumin (3.5-5.0) g/dL Urine Color Light Yellow Urine Appearance Clear (Clear) Urine pH 6.5 (5.0-8.0) Ur Specific [place] 1.009 (1.001-1.035) Urine Protein 2+ H (Negative) Urine Glucose (UA) Negative (Negative) Urine Ketones Negative (Negative) Urine Blood Negative (Negative) Urine Nitrite Negative (Negative) Urine Bilirubin Negative (Negative) Urine Urobilinogen <2.0 (<2.0) mg/dL Ur Leukocyte Esterase Negative (Negative) Urine RBC <1 (0-5) /hpf Urine WBC 3 (0-5) /hpf Urine Opiates Screen Not Detected (NotDetected) Ur Oxycodone Screen Not Detected (NotDetected) Urine Methadone Screen Not Detected (NotDetected) Ur Propoxyphene Screen Not Detected (NotDetected) Ur Barbiturates Screen Not Detected (NotDetected) U Tricyclic Antidepress Not Detected (NotDetected) Ur Phencyclidine Scrn Not Detected (NotDetected) Ur Amphetamines Screen Not Detected (NotDetected) U Methamphetamines Scrn Not Detected (NotDetected) U Benzodiazepines Scrn Not Detected (NotDetected) Urine Cocaine Screen Not Detected (NotDetected) U Marijuana (THC) Screen Not Detected (NotDetected) Serum Alcohol mg/dL Disposition Clinical Impression: Hypoglycemia, Altered mental status, CKD (chronic kidney disease) Disposition: Left Against Medical Advice Condition: Undetermined Is patient prescribed a controlled substance at d/c from ED?: No Referrals: None,Stated [Primary Care Provider] - 1-2 days Werner Painting MD [REFERRING] - 1-2 days Time of Disposition: 22:46
--- NOTE | 2021-07-30 19:43 | CT ---
EXAMINATION TYPE: CT brain wo con DATE OF EXAM: 07/30/2021 COMPARISON: 09/08/2017 HISTORY: Altered mental status. CT DLP: 1102.8 mGycm Automated exposure control for dose reduction was used. Images of the brain obtained without contrast. There is mild cerebral atrophy. There is no mass effect or midline shift. There is no sign of intracr anial hemorrhage. The calvarium is intact. There is normal aeration of the mastoid sinuses. Skull bas e is intact. IMPRESSION: Negative CT scan of the brain. No adverse change compared to old exam.
[2021-07-30 20:01] LABS: Basophils # (A) 0.1 k/uL (0-0.2); Basophils % (A) 1 %; Eosinophils # (A) 0.1 k/uL (0-0.7); Eosinophils % (A) 1 %; HCT 32.7 % (39.0-53.0); HGB 11.1 gm/dL (13.0-17.5); Lymphocytes # (A) 0.6 k/uL (1.0-4.8); Lymphocytes % (A) 6 %; MCH 28.5 pg (25.0-35.0); MCHC 34.1 g/dL (31.0-37.0); MCV 83.6 fL (80.0-100.0); Mean Platelet Volume 7.7; Monocytes # (A) 0.5 k/uL (0-1.0); Monocytes % (A) 5 %; Neutrophils # (A) 8.8 k/uL (1.3-7.7); Neutrophils % (A) 86 %; Platelet Count 344 k/uL (150-450); RBC 3.91 m/uL (4.30-5.90); RDW 13.8 % (11.5-15.5); WBC 10.2 k/uL (3.8-10.6)
--- NOTE | 2021-07-30 20:06 | CT ---
EXAMINATION TYPE: CT angio head neck DATE OF EXAM: 07/30/2021 COMPARISON: None HISTORY: Altered mental status. CT DLP: 619 mGycm Automated exposure control for dose reduction was used. CONTRAST: Performed with IV Contrast, patient injected with 65ml mL of Isovue 370. Images obtained from the aortic arch to the vertex of the brain without IV contrast. There are Three- D postprocessed images. There is normal branching pattern of the great vessels on the aortic arch. There is bilateral arteria l flow in the subclavian arteries. There is arterial flow in the common internal and external carotid arteries bilaterally. There is plaque formation at the carotid artery bifurcations and less than 10% stenosis. There is arterial flow in both vertebral arteries. There is no evidence of carotid or vert ebral artery aneurysm or dissection. There is arterial flow in the anterior middle and posterior cerebral arteries. There is arterial flow in the vertebrobasilar artery system. There is no mass effect. There is no sign of intracranial aneu rysm or neovascularity. There is a diminutive A1 segment of the right anterior cerebral artery. This is likely developmental. There is normal enhancement of the venous sinuses. IMPRESSION: Minimal plaque at the carotid artery bifurcations. No evidence of any significant stenosis. Small A1 segment of right anterior cerebral artery. There is probably filling through the anterior co mmunicating artery from the left side. No significant intracranial angiographic abnormality.
[2021-07-30 20:10] LABS: INR 0.9 (<1.2); Partial Thromboplastin Time 24.4 sec (22.0-30.0); Prothrombin Time 10.2 sec (9.0-12.0)
[2021-07-30 20:11] LABS: Lactic Acid, Venous 1.3 mmol/L (0.7-2.0)
[2021-07-30 20:13] LABS: ALT 11 U/L (4-49); AST 14 U/L (17-59); African American GFR (CKD) 14 (>60 ml/min/1.73 sqM); Albumin 3.6 g/dL (3.5-5.0); Alcohol <10 mg/dL; Alkaline Phosphatase 100 U/L (38-126); Anion Gap 10 mmol/L; Blood Urea Nitrogen 53 mg/dL (9-20); Calcium 8.9 mg/dL (8.4-10.2); Carbon Dioxide 18 mmol/L (22-30); Chloride 108 mmol/L (98-107); Glucose 84 mg/dL (74-99); Non-African American GFR(CKD) 12 (>60 ml/min/1.73 sqM); Potassium 4.7 mmol/L (3.5-5.1); Sodium 136 mmol/L (137-145); Total Bilirubin 0.6 mg/dL (0.2-1.3); Total Protein 6.3 g/dL (6.3-8.2)
[2021-07-30 20:14] LABS: Appearance,Urine Clear (Clear); Bilirubin,Urine Negative (Negative); Blood,Urine Negative (Negative); Color,Urine Light Yellow; Glucose,Urine (UA) Negative (Negative); Ketones,Urine Negative (Negative); Leukocyte Esterase,Urine Negative (Negative); Nitrite,Urine Negative (Negative); PH, Urine 6.5 (5.0-8.0); Protein,Urine 2+ (Negative); RBC,Urine <1 /hpf (0-5); Specific Gravity,Urine 1.009 (1.001-1.035); Urobilinogen,Urine <2.0 mg/dL (<2.0); WBC,Urine 3 /hpf (0-5)
[2021-07-30 20:23] LABS: Amphetamine Screen,Urine Not Detected (NotDetected); Barbiturate Screen,Urine Not Detected (NotDetected); Benzodiazepines Screen,Urine Not Detected (NotDetected); Cocaine Screen,Urine Not Detected (NotDetected); Methadone Screen, Urine Not Detected (NotDetected); Opiate Screen,Urine Not Detected (NotDetected); Oxycodone Screen, Urine Not Detected (NotDetected); Phencyclidine Screen,Urine Not Detected (NotDetected); Tricyclic Antidepressant,Urine Not Detected (NotDetected); Urn Cannabinoid Scrn Not Detected (NotDetected)
--- NOTE | 2021-07-30 21:04 | XR ---
EXAMINATION TYPE: XR chest 1V portable DATE OF EXAM: 07/30/2021 COMPARISON: 04/07/2021 HISTORY: Altered mental status. Chest pain TECHNIQUE: FINDINGS: There is some coarsening of interstitial markings in the mid and lower lung sahni. There a re no hilar masses. There is no pleural effusion. IMPRESSION: Interstitial infiltrates in the lower lobes. This appears new compared to the old exam. N ormal heart. No heart failure.
[2021-07-30 22:02] VITALS: BP 141/85; PULSE 108; RESP 18
== END 2021-07-30 22:48 | disposition left against medical advice (07) ==
LOC: EC 19:15
DX: R41.82 Altered mental status, unspecified (principal); E11.649 Type 2 diabetes mellitus with hypoglycemia without coma; E11.22 Type 2 diabetes mellitus with diabetic chronic kidney disease; N18.9 Chronic kidney disease, unspecified; K21.9 Gastro-esophageal reflux disease without esophagitis; F17.200 Nicotine dependence, unspecified, uncomplicated; Z79.4 Long term (current) use of insulin; Z87.440 Personal history of urinary (tract) infections
CPT/HCPCS: 99285; 96374; 36415; 93005; 80053; 82140; 83605; 84484; 85025; 85610; 85730; 81001; 80306; 80320; 71045; 70496; 70450; 70498; J2060; Q9967

== ENCOUNTER 2021-11-28 00:10 | Inpatient (IN) | payer OTHER ==
[2021-11-28] MEDS ORDERED: ONDANSETRON 4 MG/2 ML VIAL IVP STA (00:12)
[2021-11-28] MEDS ORDERED: SODIUM CHLORIDE 0.9% 500 ML 500 ML IV STA (00:12)
[2021-11-28] MEDS ORDERED: SODIUM CHLORIDE 0.9% 1,000 ML IV STA ×2 (00:12)
--- NOTE | 2021-11-28 00:13 | ED ---
Nausea/Vomiting/Diarrhea HPI - General Stated complaint: NVD Time Seen by Provider: 11/28/21 00:11 Source: RN notes reviewed, old records reviewed Mode of arrival: EMS Limitations: no limitations - History of Present Illness MD complaint: nausea, vomiting, abdominal pain -: days(s) Description of Vomiting: food contents Description of Diarrhea: water Associated Abdominal Pain: Yes Location: diffuse Severity: moderate Severity scale (1-10): 7 Quality: cramping Consistency: constant Improves with: none Worsens with: none Associated Symptoms: myalgias, loss of appetite, malaise, nausea/vomiting - Related Data Home Medications Medication Instructions Recorded Confirmed Insulin Aspart [NovoLOG Flexpen] See Protocol SQ AC-TID 07/09/19 07/30/21 Insulin Degludec [Tresiba 30 units SQ HS 03/18/21 07/30/21 Flextouch U-200 Pen] hydrALAZINE HCL 50 mg PO HS 03/18/21 07/30/21 lisinopriL [Zestril] 40 mg PO HS 03/18/21 07/30/21 Lansoprazole 30 mg PO DAILY 04/07/21 07/30/21 Allergies Allergy/AdvReac Type Severity Reaction Status Date / Time No Known Allergies Allergy Verified 11/28/21 00:18 Review of Systems ROS Statement: Those systems with pertinent positive or pertinent negative responses have been documented in the HPI. ROS Other: All systems not noted in ROS Statement are negative. Past Medical History Past Medical History: Diabetes Mellitus, GERD/Reflux, Renal Disease Additional Past Medical History / Comment(s): IDDM type II, diabetic neuropathy bilateral feet, DKA, renal insufficiency, hypercalemia, past perianal abscess/fistula with surgery, BPH/urinary retention with surgery, UTI. History of Any Multi-Drug Resistant Organisms: None Reported Past Surgical History: No Surgical Hx Reported Additional Past Surgical History / Comment(s): 08/2014 cystoscopy with TURP, rect al exam/I&D/fistulotomy. I&D back Past Anesthesia/Blood Transfusion Reactions: No Reported Reaction Past Psychological History: No Psychological Hx Reported Smoking Status: Current every day smoker Past Alcohol Use History: None Reported Past Drug Use History: None Reported - Past Family History Mother Family Medical History: Diabetes Mellitus Additional Family Medical History / Comment(s): mother is Father Family Medical History: No Reported History Additional Family Medical History / Comment(s): Father is healthy. General Exam General appearance: alert, in no apparent distress Head exam: Present: atraumatic, normocephalic, normal inspection Eye exam: Present: normal appearance, PERRL, EOMI. Absent: scleral icterus, conjunctival injection, periorbital swelling ENT exam: Present: normal exam, mucous membranes moist Neck exam: Present: normal inspection. Absent: tenderness, meningismus, lymphadenopathy Respiratory exam: Present: normal lung sounds bilaterally. Absent: respiratory distress, wheezes, rales, rhonchi, stridor Cardiovascular Exam: Present: regular rate, normal rhythm, normal heart sounds. Absent: systolic murmur, diastolic murmur, rubs, gallop, clicks GI/Abdominal exam: Present: soft, normal bowel sounds. Absent: distended, tenderness, guarding, rebound, rigid Extremities exam: Present: normal inspection, full ROM, normal capillary refill. Absent: tenderness, pedal edema, joint swelling, calf tenderness Back exam: Present: normal inspection Neurological exam: Present: alert, oriented X3, CN II-XII intact Psychiatric exam: Present: normal affect, normal mood Skin exam: Present: warm, dry, intact, normal color. Absent: rash Course Vital Signs 11/28/21 00:12 Temperature 98.5 F Pulse Rate 116 H Respiratory 18 Rate Blood Pressure 216/114 O2 Sat by Pulse 99 Oximetry Medical Decision Making - Lab Data Result diagrams: 11/28/21 00:38 11/28/21 00:38 Lab Results 11/28/21 11/28/21 11/28/21 Range/Units 00:31 00:38 00:38 WBC 8.4 (3.8-10.6) k/uL RBC 3.96 L (4.30-5.90) m/uL Hgb 10.9 L (13.0-17.5) gm/dL Hct 32.8 L (39.0-53.0) % MCV 82.9 (80.0-100.0) fL MCH 27.6 (25.0-35.0) pg MCHC 33.3 (31.0-37.0) g/dL RDW 13.0 (11.5-15.5) % Plt Count 395 (150-450) k/uL MPV 8.2 Neutrophils % 74 % Lymphocytes % 13 % Monocytes % 8 % Eosinophils % 3 % Basophils % 1 % Neutrophils # 6.2 (1.3-7.7) k/uL Lymphocytes # 1.1 (1.0-4.8) k/uL Monocytes # 0.7 (0-1.0) k/uL Eosinophils # 0.3 (0-0.7) k/uL Basophils # 0.1 (0-0.2) k/uL VBG pH (7.31-7.41) VBG pCO2 (37-51) mmHg VBG HCO3 (24-28) mmol/L Sodium 133 L (137-145) mmol/L Potassium 4.4 (3.5-5.1) mmol/L Chloride 96 L (98-107) mmol/L Carbon Dioxide 24 (22-30) mmol/L Anion Gap 13 mmol/L BUN 100 H (9-20) mg/dL Creatinine 11.54 H* (0.66-1.25) mg/dL Est GFR (CKD-EPI)AfAm 5 (>60 ml/min/1.73 sqM) Est GFR (CKD-EPI)NonAf 4 (>60 ml/min/1.73 sqM) Glucose 86 (74-99) mg/dL POC Glucose (mg/dL) 99 (70-110) mg/dL POC Glu Rug Renovator ID Marcial Castellanos Plasma Lactic Acid Jcarlos (0.7-2.0) mmol/L Calcium 10.5 H (8.4-10.2) mg/dL Phosphorus 7.1 H (2.5-4.5) mg/dL Magnesium 1.4 L (1.6-2.3) mg/dL Total Bilirubin 0.4 (0.2-1.3) mg/dL AST 17 (17-59) U/L ALT 10 (4-49) U/L Alkaline Phosphatase 105 (38-126) U/L Troponin I (0.000-0.034) ng/mL Total Protein 5.9 L (6.3-8.2) g/dL Albumin 3.5 (3.5-5.0) g/dL Acetone, Qual Negative (Negative) 11/28/21 11/28/21 11/28/21 Range/Units 00:38 00:38 00:38 WBC (3.8-10.6) k/uL RBC (4.30-5.90) m/uL Hgb (13.0-17.5) gm/dL Hct (39.0-53.0) % MCV (80.0-100.0) fL MCH (25.0-35.0) pg MCHC (31.0-37.0) g/dL RDW (11.5-15.5) % Plt Count (150-450) k/uL MPV Neutrophils % % Lymphocytes % % Monocytes % % Eosinophils % % Basophils % % Neutrophils # (1.3-7.7) k/uL Lymphocytes # (1.0-4.8) k/uL Monocytes # (0-1.0) k/uL Eosinophils # (0-0.7) k/uL Basophils # (0-0.2) k/uL VBG pH 7.61 H* (7.31-7.41) VBG pCO2 22 L (37-51) mmHg VBG HCO3 23 L (24-28) mmol/L Sodium (137-145) mmol/L Potassium (3.5-5.1) mmol/L Chloride (98-107) mmol/L Carbon Dioxide (22-30) mmol/L Anion Gap mmol/L BUN (9-20) mg/dL Creatinine (0.66-1.25) mg/dL Est GFR (CKD-EPI)AfAm (>60 ml/min/1.73 sqM) Est GFR (CKD-EPI)NonAf (>60 ml/min/1.73 sqM) Glucose (74-99) mg/dL POC Glucose (mg/dL) (70-110) mg/dL POC Glu Rug Renovator ID Plasma Lactic Acid Jcarlos 1.4 (0.7-2.0) mmol/L Calcium (8.4-10.2) mg/dL Phosphorus (2.5-4.5) mg/dL Magnesium (1.6-2.3) mg/dL Total Bilirubin (0.2-1.3) mg/dL AST (17-59) U/L ALT (4-49) U/L Alkaline Phosphatase (38-126) U/L Troponin I 0.018 (0.000-0.034) ng/mL Total Protein (6.3-8.2) g/dL Albumin (3.5-5.0) g/dL Acetone, Qual (Negative) - EKG Data -: EKG Interpreted by Me (EKG shows a flutter 108 QRS 136 QTc 422) Disposition Clinical Impression: Generalized weakness, Acute renal failure, Nausea and vomiting, Dizziness, Diabetes mellitus, Acute kidney injury Disposition: ADMITTED IP TO THIS HOSP Condition: Fair Is patient prescribed a controlled substance at d/c from ED?: No Referrals: None,Stated [Primary Care Provider] - 1-2 days
[2021-11-28] MEDS ORDERED: METOPROLOL TARTRATE 5 MG/5 ML VIAL IVP STA (00:26)
[2021-11-28] MEDS ORDERED: DILTIAZEM DRIP BOLUS FROM BAG 1 MG SOLN IV ONE (00:26)
[2021-11-28] MEDS ORDERED: DILTIAZEM 125 MG in SODIUM CHLORIDE 0.9% 100 ML IV SCH (00:30)
[2021-11-28 00:33] LABS: Glucose,Whole Blood 99 mg/dL (70-110)
[2021-11-28] MEDS ORDERED: diazePAM 5 MG/ML 1 ML VIAL IVP STA ×2 (00:47→01:48)
[2021-11-28 00:48] LABS: Basophils # (A) 0.1 k/uL (0-0.2); Basophils % (A) 1 %; Eosinophils # (A) 0.3 k/uL (0-0.7); Eosinophils % (A) 3 %; HCT 32.8 % (39.0-53.0); HGB 10.9 gm/dL (13.0-17.5); Lymphocytes # (A) 1.1 k/uL (1.0-4.8); Lymphocytes % (A) 13 %; MCH 27.6 pg (25.0-35.0); MCHC 33.3 g/dL (31.0-37.0); MCV 82.9 fL (80.0-100.0); Mean Platelet Volume 8.2; Monocytes # (A) 0.7 k/uL (0-1.0); Monocytes % (A) 8 %; Neutrophils # (A) 6.2 k/uL (1.3-7.7); Neutrophils % (A) 74 %; Platelet Count 395 k/uL (150-450); RBC 3.96 m/uL (4.30-5.90); WBC 8.4 k/uL (3.8-10.6)
[2021-11-28 01:04] LABS: ALT 10 U/L (4-49); AST 17 U/L (17-59); African American GFR (CKD) 5 (>60 ml/min/1.73 sqM); Albumin 3.5 g/dL (3.5-5.0); Alkaline Phosphatase 105 U/L (38-126); Anion Gap 13 mmol/L; Blood Urea Nitrogen 100 mg/dL (9-20); Calcium 10.5 mg/dL (8.4-10.2); Carbon Dioxide 24 mmol/L (22-30); Chloride 96 mmol/L (98-107); Glucose 86 mg/dL (74-99); Magnesium 1.4 mg/dL (1.6-2.3); Non-African American GFR(CKD) 4 (>60 ml/min/1.73 sqM); Phosphorus 7.1 mg/dL (2.5-4.5); Potassium 4.4 mmol/L (3.5-5.1); Sodium 133 mmol/L (137-145); Total Bilirubin 0.4 mg/dL (0.2-1.3); Total Protein 5.9 g/dL (6.3-8.2)
[2021-11-28 01:12] LABS: VBG PH 7.61 (7.31-7.41)
[2021-11-28] MEDS ORDERED: NALOXONE 0.4 MG/ML 1 ML VIAL IV PRN (01:45)
[2021-11-28] MEDS ORDERED: ONDANSETRON 4 MG/2 ML VIAL IVP PRN (01:45)
[2021-11-28] MEDS ORDERED: PROCHLORPERAZINE INJ 10 MG/2 ML VIAL IVP STA (01:48)
[2021-11-28] MEDS ORDERED: PANTOPRAZOLE 40 MG/10 ML VIAL IVP STA (01:48)
[2021-11-28] MEDS ORDERED: LABETALOL 5 MG/ML VIAL MDV IVP STA (01:48)
[2021-11-28] MEDS ORDERED: PROCHLORPERAZINE INJ 10 MG/2 ML VIAL IVP PRN (01:48)
--- NOTE | 2021-11-28 03:45 | CT ---
EXAMINATION TYPE: CT abdomen pelvis wo con DATE OF EXAM: 11/28/2021 COMPARISON: 11/16/2016 HISTORY: abd pain CT DLP: 778 mGycm Automated exposure control for dose reduction was used. Images obtained from the diaphragm to the floor the pelvis with no contrast. There is some groundglass interstitial infiltrate at the lung bases. No pleural effusion. No pericard ial effusion. Liver and spleen are intact. No pancreatic mass. The stomach is intact. Gallbladder is intact. There is no adrenal mass. Kidneys have normal size. There is left-sided hydronephrosis and hydrourete r. No evidence of definite ureteral calculus. Urinary bladder is dilated and measures 21 cm. No ingui nal hernia. No free fluid in the pelvis. There is some fullness also of the right ureter. No bowel obstruction. No sign of free air. There is apparent contrast filled appendix which appears n ormal. The lumbar vertebrae have normal alignment. No compression fracture. Bony pelvis is intact. Hip joint s are intact. IMPRESSION: Markedly dilated urinary bladder. There is some bilateral hydronephrosis and hydroureter which is muc h more on the left side and probably related to chronic bladder outlet obstruction and reflux. The ap pearance is not significantly different than old exam. No evidence of any significant renal atrophy. There is some minimal interstitial infiltrate right lower lobe that appears new compared to the old e xam.
[2021-11-28] MEDS ORDERED: LIDOCAINE URO-JET JELLY 2% 5 ML KIT URETHRAL ONE (04:52)
[2021-11-28] MEDS ORDERED: DEXTROSE 50% SYRINGE 50 ML IVP ONE (06:00)
[2021-11-28 06:04] LABS: Glucose,Whole Blood 41 mg/dL (70-110)
[2021-11-28 06:04] LABS: Glucose,Whole Blood 43 mg/dL (70-110)
[2021-11-28 06:15] LABS: Glucose,Whole Blood 104 mg/dL (70-110)
[2021-11-28] MEDS ORDERED: hydrALAZINE HCL 25 MG TAB PO PRN (08:03)
--- NOTE | 2021-11-28 08:46 | P.GSCN ---
History of Present Illness Consult date: 11/28/21 Reason for Consult: Urinary Retention Requesting physician: Pattie Greer History of present illness: The patient is a 51-year-old white male with a long history of incomplete bladder emptying. He was found in early 2014 to have left hydronephrosis and urinary retention. The hydronephrosis resolved with Sanchez catheter drainage. He underwent a TURP in August 2014. He is now admitted with abdominal pain, nausea, vomiting, and generalized weakness. CT scan shows bilateral hydronephrosis, left greater than right, and the bladder is distended up to the umbilicus. The patient is a vague historian, but he does report that his urinary stream has been weak. Review of Systems - Constitutional Reports weakness - Gastrointestinal Reports nausea, Reports vomiting - Genitourinary Reports as per HPI Past Medical History Past Medical History: Diabetes Mellitus, GERD/Reflux, Renal Disease Additional Past Medical History / Comment(s): IDDM type II, diabetic neuropathy bilateral feet, DKA, renal insufficiency, hypercalemia, past perianal abscess/ fistula with surgery, BPH/urinary retention with surgery, UTI. History of Any Multi-Drug Resistant Organisms: None Reported Past Surgical History: No Surgical Hx Reported Additional Past Surgical History / Comment(s): 08/2014 cystoscopy with TURP, rectal exam/I&D/fistulotomy. I&D back Past Anesthesia/Blood Transfusion Reactions: No Reported Reaction Past Psychological History: No Psychological Hx Reported Additional Psychological History / Comment(s): Pt lives alone. He works for [employer]. He states he does not drive and getting to appointments can be difficult. Smoking Status: Current every day smoker Past Alcohol Use History: None Reported Additional Past Alcohol Use History / Comment(s): Pt started smoking about 1989 and is a 2 ppd smoker. Past Drug Use History: None Reported - Past Family History Mother Family Medical History: Diabetes Mellitus Additional Family Medical History / Comment(s): mother is Father Family Medical History: No Reported History Additional Family Medical History / Comment(s): Father is healthy. Medications and Allergies Home Medications Medication Instructions Recorded Confirmed Type Insulin Aspart [NovoLOG Flexpen] See Protocol SQ AC-TID 07/09/19 07/30/21 History Insulin Degludec [Tresiba 30 units SQ HS 03/18/21 07/30/21 History Flextouch U-200 Pen] hydrALAZINE HCL 50 mg PO HS 03/18/21 07/30/21 History lisinopriL [Zestril] 40 mg PO HS 03/18/21 07/30/21 History Lansoprazole 30 mg PO DAILY 04/07/21 07/30/21 History Allergies Allergy/AdvReac Type Severity Reaction Status Date / Time No Known Allergies Allergy Verified 11/28/21 00:18 Surgical - Exam Vital Signs Temp Pulse Resp BP Pulse Ox 98.5 F 116 H 18 216/114 99 11/28/21 00:12 11/28/21 00:12 11/28/21 00:12 11/28/21 00:12 11/28/21 00:12 - General well developed, well nourished, no distress - Respiratory normal respiratory effort - Abdomen Abdomen: soft, non tender, no guarding, no rigid, no rebound - Genitourinary normal penis with no external lesions, testicles non-tender - Psychiatric oriented to time, oriented to person, oriented to place, speech is normal, memory intact Results - Labs 11/28/21 00:38 11/28/21 00:38 Abnormal Lab Results - Last 24 Hours (Table) 11/28/21 11/28/21 11/28/21 Range/Units 00:38 00:38 00:38 RBC 3.96 L (4.30-5.90) m/uL Hgb 10.9 L (13.0-17.5) gm/dL Hct 32.8 L (39.0-53.0) % VBG pH 7.61 H* (7.31-7.41) VBG pCO2 22 L (37-51) mmHg VBG HCO3 23 L (24-28) mmol/L Sodium 133 L (137-145) mmol/L Chloride 96 L (98-107) mmol/L BUN 100 H (9-20) mg/dL Creatinine 11.54 H* (0.66-1.25) mg/dL POC Glucose (mg/dL) (70-110) mg/dL Calcium 10.5 H (8.4-10.2) mg/dL Phosphorus 7.1 H (2.5-4.5) mg/dL Magnesium 1.4 L (1.6-2.3) mg/dL Total Protein 5.9 L (6.3-8.2) g/dL 11/28/21 11/28/21 Range/Units 05:57 05:59 RBC (4.30-5.90) m/uL Hgb (13.0-17.5) gm/dL Hct (39.0-53.0) % VBG pH (7.31-7.41) VBG pCO2 (37-51) mmHg VBG HCO3 (24-28) mmol/L Sodium (137-145) mmol/L Chloride (98-107) mmol/L BUN (9-20) mg/dL Creatinine (0.66-1.25) mg/dL POC Glucose (mg/dL) 41 L 43 L (70-110) mg/dL Calcium (8.4-10.2) mg/dL Phosphorus (2.5-4.5) mg/dL Magnesium (1.6-2.3) mg/dL Total Protein (6.3-8.2) g/dL Diabetes panel 11/28/21 Range/Units 00:38 Sodium 133 L (137-145) mmol/L Potassium 4.4 (3.5-5.1) mmol/L Chloride 96 L (98-107) mmol/L Carbon Dioxide 24 (22-30) mmol/L BUN 100 H (9-20) mg/dL Creatinine 11.54 H* (0.66-1.25) mg/dL Glucose 86 (74-99) mg/dL Calcium 10.5 H (8.4-10.2) mg/dL AST 17 (17-59) U/L ALT 10 (4-49) U/L Alkaline Phosphatase 105 (38-126) U/L Total Protein 5.9 L (6.3-8.2) g/dL Albumin 3.5 (3.5-5.0) g/dL Calcium panel 11/28/21 Range/Units 00:38 Calcium 10.5 H (8.4-10.2) mg/dL Phosphorus 7.1 H (2.5-4.5) mg/dL Albumin 3.5 (3.5-5.0) g/dL Pituitary panel 11/28/21 Range/Units 00:38 Sodium 133 L (137-145) mmol/L Potassium 4.4 (3.5-5.1) mmol/L Chloride 96 L (98-107) mmol/L Carbon Dioxide 24 (22-30) mmol/L BUN 100 H (9-20) mg/dL Creatinine 11.54 H* (0.66-1.25) mg/dL Glucose 86 (74-99) mg/dL Calcium 10.5 H (8.4-10.2) mg/dL Adrenal panel 11/28/21 Range/Units 00:38 Sodium 133 L (137-145) mmol/L Potassium 4.4 (3.5-5.1) mmol/L Chloride 96 L (98-107) mmol/L Carbon Dioxide 24 (22-30) mmol/L BUN 100 H (9-20) mg/dL Creatinine 11.54 H* (0.66-1.25) mg/dL Glucose 86 (74-99) mg/dL Calcium 10.5 H (8.4-10.2) mg/dL Total Bilirubin 0.4 (0.2-1.3) mg/dL AST 17 (17-59) U/L ALT 10 (4-49) U/L Alkaline Phosphatase 105 (38-126) U/L Total Protein 5.9 L (6.3-8.2) g/dL Albumin 3.5 (3.5-5.0) g/dL - Imaging CT scan - abdomen: report reviewed, image reviewed Assessment and Plan (1) Urinary retention Current Visit: No Status: Acute Code(s): R33.9 - RETENTION OF URINE, UNSPECIFIED SNOMED Code(s): 682754549 Plan: The patient appears to have acute exacerbation of chronic renal failure, due at least in part to obstructive uropathy. Under sterile conditions, 2% lidocaine gel was administered intraurethrally and I was then able to pass a 14-Frisian coud tip Sanchez catheter into the bladder, with return of clear urine. I am hopeful that this will result in improved renal function.
[2021-11-28] MEDS: TAMSULOSIN 0.4 MG CAP.ER.24H PO SCH (09:15)
[2021-11-28] MEDS: amLODIPine 10 MG TAB PO SCH (09:15)
[2021-11-28] MEDS: PANTOPRAZOLE 40 MG/10 ML VIAL IV SCH (09:16)
[2021-11-28] MEDS: HEPARIN SODIUM,PORCINE/PF 5,000 UNIT/0.5 ML SYRINGE SQ SCH ×2 (09:16→20:52)
--- NOTE | 2021-11-28 09:45 | P.HPIM ---
History of Present Illness . This is a pleasant 51 years old male with past medical history of diabetes mellitus, hypertension. Chronic kidney disease, He is a patient of Dr. Mary who will resume the care of the patient on this coming 11/30/2021 Patient presents because of nausea vomiting and diarrhea and abdominal pain for 2 days patient says that he has been vomiting very frequently for example every 1 hour with no blood, he has poor bouts of bowel movements yesterday also with no blood or black stool. He had some mild periumbilical abdominal pain, nonradiating which is resolved now. He denies chest pain or dyspnea, he feels generally weak but no headache or dizziness, no limb weakness or numbness suggestive of stroke symptoms. He smokes about 2 packs per day and he was counseled to quit but he declines. 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 He was saturating 99% on room air and his been afebrile. Currently blood pressure 183/8012. Labs showing CBC with mild anemia at 10.9. Venous blood gas showing pH of 7.6, pCO2 22 Sodium 133. Creatinine elevated at 11.5, BUN is high at 100. On admission his glucose was low at 43 and 104. Calcium was elevated at 10.5, phosphorus is high at 7.1 troponin is negative. Serum alcohol less than 10 and acetone is negative. CT of the abdomen and pelvis with no IV contrast: Markedly dilated urinary bladder. There is some bilateral hydronephrosis and hydroureter which is much more on the left side and probably related to chronic bladder outlet obstruction and reflux EKG showing sinus tachycardia and [address]-T changes, with right bundle-branch block. Old EKG from 07/30/2021 showing sinus tachycardia with QTC duration 84 ms, however it's more prolonged on current EKG at 134 Patient has 100 mL of urine output this morning In the emergency room patient received several boluses of normal saline, Valium, Zofran, metoprolol and started on Cardizem drip, labetalol and Protonix. Review of Systems Review of systems CONSTITUTIONAL: No fever, no malaise, no fatigue. HEENT: No recent visual problems or hearing problems. Denied any sore throat. CARDIOVASCULAR: No orthopnea, PND, no palpitations, no syncope. PULMONARY: No shortness of breath, no cough, no hemoptysis. GASTROINTESTINAL: No constipation, no nausea,. Normoactive bowel sounds. NEUROLOGICAL: No headaches, no weakness, no numbness. HEMATOLOGICAL: Denies any bleeding or petechiae. GENITOURINARY: Denies any burning micturition, frequency, or urgency. MUSCULOSKELETAL/RHEUMATOLOGICAL: Denies any joint pain, swelling, or any muscle pain. ENDOCRINE: Denies any polyuria or polydipsia. Past Medical History Past Medical History: Diabetes Mellitus, GERD/Reflux, Renal Disease Additional Past Medical History / Comment(s): IDDM type II, diabetic neuropathy bilateral feet, DKA, renal insufficiency, hypercalemia, past perianal abscess/fistula with surgery, BPH/urinary retention with surgery, UTI. History of Any Multi-Drug Resistant Organisms: None Reported Past Surgical History: No Surgical Hx Reported Additional Past Surgical History / Comment(s): 08/2014 cystoscopy with TURP, rectal exam/I&D/fistulotomy. I&D back Past Anesthesia/Blood Transfusion Reactions: No Reported Reaction Past Psychological History: No Psychological Hx Reported Additional Psychological History / Comment(s): Pt lives alone. He works for [employer]. He states he does not drive and getting to appointments can be difficult. Smoking Status: Current every day smoker Past Alcohol Use History: None Reported Additional Past Alcohol Use History / Comment(s): Pt started smoking about 1989 and is a 2 ppd smoker. Past Drug Use History: None Reported - Past Family History Mother Family Medical History: Diabetes Mellitus Additional Family Medical History / Comment(s): mother is Father Family Medical History: No Reported History Additional Family Medical History / Comment(s): Father is healthy. Medications and Allergies Home Medications Medication Instructions Recorded Confirmed Type Insulin Aspart [NovoLOG Flexpen] See Protocol SQ AC-TID 07/09/19 07/30/21 History Insulin Degludec [Tresiba 30 units SQ HS 03/18/21 07/30/21 History Flextouch U-200 Pen] hydrALAZINE HCL 50 mg PO HS 03/18/21 07/30/21 History lisinopriL [Zestril] 40 mg PO HS 03/18/21 07/30/21 History Lansoprazole 30 mg PO DAILY 04/07/21 07/30/21 History Allergies Allergy/AdvReac Type Severity Reaction Status Date / Time No Known Allergies Allergy Verified 11/28/21 00:18 Physical Exam Vitals: Vital Signs Temp Pulse Pulse Resp BP BP Pulse Ox 11/28/21 04:09 98 18 11/28/21 03:40 98 16 183/82 94 L 11/28/21 02:45 90 20 141/77 96 11/28/21 02:32 96 18 188/93 11/28/21 02:09 98.1 F 99 24 200/102 97 11/28/21 00:12 98.5 F 116 H 18 216/114 99 Intake and Output 11/27/21 11/27/21 11/28/21 14:59 22:59 06:59 Intake Total 20 Output Total 100 Balance -80 Intake: IV 20 Invasive Line 1 20 Output: Urine 100 Other: Voiding Method Urinal # Voids 1 Weight 92.986 kg GENERAL: The patient is alert and oriented x3, not in any acute distress. Well developed, well nourished. HEENT: Pupils are round and equally reacting to light. EOMI. No scleral icterus. No conjunctival pallor. Normocephalic, atraumatic. No pharyngeal erythema. No thyromegaly. CARDIOVASCULAR: S1 and S2 present. No murmurs, rubs, or gallops. PULMONARY: Chest is clear to auscultation, no wheezing or crackles. -ABDOMEN: Soft, nontender, nondistended, normoactive bowel sounds. No palpable organomegaly. Sanchez catheter in place with clear urine MUSCULOSKELETAL: No joint swelling or deformity. EXTREMITIES: No cyanosis, clubbing, or pedal edema. NEUROLOGICAL: Gross neurological examination did not reveal any focal deficits. SKIN: No rashes. no petechiae. Results CBC & Chem 7: 11/28/21 00:38 11/28/21 00:38 Labs: Abnormal Lab Results - Last 24 Hours (Table) 11/28/21 11/28/21 11/28/21 Range/Units 00:38 00:38 00:38 RBC 3.96 L (4.30-5.90) m/uL Hgb 10.9 L (13.0-17.5) gm/dL Hct 32.8 L (39.0-53.0) % VBG pH 7.61 H* (7.31-7.41) VBG pCO2 22 L (37-51) mmHg VBG HCO3 23 L (24-28) mmol/L Sodium 133 L (137-145) mmol/L Chloride 96 L (98-107) mmol/L BUN 100 H (9-20) mg/dL Creatinine 11.54 H* (0.66-1.25) mg/dL POC Glucose (mg/dL) (70-110) mg/dL Calcium 10.5 H (8.4-10.2) mg/dL Phosphorus 7.1 H (2.5-4.5) mg/dL Magnesium 1.4 L (1.6-2.3) mg/dL Total Protein 5.9 L (6.3-8.2) g/dL 11/28/21 11/28/21 Range/Units 05:57 05:59 RBC (4.30-5.90) m/uL Hgb (13.0-17.5) gm/dL Hct (39.0-53.0) % VBG pH (7.31-7.41) VBG pCO2 (37-51) mmHg VBG HCO3 (24-28) mmol/L Sodium (137-145) mmol/L Chloride (98-107) mmol/L BUN (9-20) mg/dL Creatinine (0.66-1.25) mg/dL POC Glucose (mg/dL) 41 L 43 L (70-110) mg/dL Calcium (8.4-10.2) mg/dL Phosphorus (2.5-4.5) mg/dL Magnesium (1.6-2.3) mg/dL Total Protein (6.3-8.2) g/dL Thrombosis Risk Factor Assmnt - Choose All That Apply Each Factor Represents 1 point: Age 41-60 years, Obesity (BMI >25) Thrombosis Risk Factor Assessment Total Risk Factor Score: 2 Thrombosis Risk Factor Assessment Level: Low Risk Assessment and Plan Assessment: Acute gastroenteritis, could be viral Acute kidney injury, secondary to combination of hypovolemia and urinary retention and obstructive uropathy. Also patient was on CHEMO inhibitor which is held now. On the top of his advanced chronic kidney disease Acute urinary retention status post Sanchez catheter Bilateral hydronephrosis and hydroureter, more on the left side with distended bladder Dehydration, present on admission New right-sided bundle-branch block Diabetes mellitus, with hypoglycemia on admission Hypertension Chronic kidney disease, stage IV. Most likely diabetic nephropathy Plan: This is a pleasant 51 years old male who presents with QUIQUE, urinary retention Continue with Sanchez catheter, start Flomax urology and nephrology team consult. 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 Hold lisinopril Consults cardiology For abnormal EKG with right bundle branch block Start Norvasc, and when necessary hydralazine Labs and medication were reviewed.. Continue same treatment. Continue with symptomatic treatment. Resume home medication. Monitor lytes and vitals. DVT and GI prophylaxis. Further recommendationsas per clinical course of the patient DVT prophylaxis: Subcutaneous heparin GI Prophylaxis: Ppi PT/OT: Pending Prognosis is guarded
[2021-11-28] MEDS: hydrALAZINE HCL 25 MG TAB PO SCH ×3 (10:08→20:53)
[2021-11-28] MEDS: NICOTINE 21MG/24HR PATCH TRANSDERM SCH (10:08)
--- NOTE | 2021-11-28 10:30 | P.NPCON ---
History of Present Illness - Reason for Consult Consult date: 11/28/21 acute renal failure - Chief Complaint Severe acute kidney injury - History of Present Illness This is a 51-year-old male seen in consultation because of acute kidney injury. He came in because of nausea vomiting diarrhea for the last few days. Admission creatinine was 11.54 previous to this on 07/30/2021 creatinine was 4.98. Creatinine has been elevated since 2013, in the 1-3 range. He did not follow-up with a director of casework department. He was seen by our team when he was admitted previously on 04/07/2021 with acute kidney injury secondary to volume depletion. Previously on ultrasound in 2014 had shown some postvoid residual with mild concentric wall thickening but no obvious hydronephrosis that the time. Currently his nausea vomiting and diarrhea have resolved. His appetite is fair. Denies any chest pain shortness of breath and nausea vomiting headache dizziness. He is awake and alert and oriented 3 without any asterixis surprisingly in spite of creatinine of 11. Rest of the electrolytes are rather unremarkable with the sodium 133 potassium 4.4 chloride 96 bicarb 24 calcium 10.5 phosphorus 7.1. Previous calcium was slightly high at 10.3 on 04/07/2021 but multiple other calciums over the lasts for few years have shown calcium up to 17.6 on 09/08/2017. PTH on 09/08/2017 was 13.9. Vitamin D 25-hydroxy level is 14 on 09/08/2017 and vitamin D 125 dihydroxy level was less than 5 pg per mL on 09/08/2017. At that time and was deemed to be from intake of calcium pills such as Tums Past Medical History Past Medical History: Diabetes Mellitus, GERD/Reflux, Renal Disease Additional Past Medical History / Comment(s): IDDM type II, diabetic neuropathy bilateral feet, DKA, renal insufficiency, hypercalemia, past perianal abscess/fistula with surgery, BPH/urinary retention with surgery, UTI. History of Any Multi-Drug Resistant Organisms: None Reported Past Surgical History: No Surgical Hx Reported Additional Past Surgical History / Comment(s): 08/2014 cystoscopy with TURP, rectal exam/I&D/fistulotomy. I&D back Past Anesthesia/Blood Transfusion Reactions: No Reported Reaction Past Psychological History: No Psychological Hx Reported Additional Psychological History / Comment(s): Pt lives alone. He works for [employer]. He states he does not drive and getting to appointments can be difficult. Smoking Status: Current every day smoker Past Alcohol Use History: None Reported Additional Past Alcohol Use History / Comment(s): Pt started smoking about 1989 and is a 2 ppd smoker. Past Drug Use History: None Reported - Past Family History Mother Family Medical History: Diabetes Mellitus Additional Family Medical History / Comment(s): mother is Father Family Medical History: No Reported History Additional Family Medical History / Comment(s): Father is healthy. Medications and Allergies Home Medications Medication Instructions Recorded Confirmed Type Insulin Aspart [NovoLOG Flexpen] See Protocol SQ AC-TID 07/09/19 07/30/21 History Insulin Degludec [Tresiba 30 units SQ HS 03/18/21 07/30/21 History Flextouch U-200 Pen] hydrALAZINE HCL 50 mg PO HS 03/18/21 07/30/21 History lisinopriL [Zestril] 40 mg PO HS 03/18/21 07/30/21 History Lansoprazole 30 mg PO DAILY 04/07/21 07/30/21 History Allergies Allergy/AdvReac Type Severity Reaction Status Date / Time No Known Allergies Allergy Verified 11/28/21 00:18 Physical Exam Vitals: Vital Signs Temp Pulse Pulse Resp BP BP Pulse Ox 11/28/21 04:09 98 18 11/28/21 03:40 98 16 183/82 94 L 11/28/21 02:45 90 20 141/77 96 11/28/21 02:32 96 18 188/93 11/28/21 02:09 98.1 F 99 24 200/102 97 11/28/21 00:12 98.5 F 116 H 18 216/114 99 Intake and Output 11/27/21 11/28/21 11/28/21 22:59 06:59 14:59 Intake Total 20 120 Output Total 100 Balance -80 120 Intake: IV 20 Invasive Line 1 20 Oral 120 Output: Urine 100 Other: Voiding Method Urinal # Voids 1 Weight 92.986 kg Currently awake alert oriented 3. No asterixis. No JVP noted neck is supple no facial asymmetry Lungs are clear to auscultation good air entry bilaterally Heart sounds atrial fibrillation. No murmur rub gallop Abdomen soft nontender no organomegaly ascites masses noted Extremity exam was no edema Neurologically awake alert oriented no asterixis Results - Lab Results Most recent lab results Calcium 10.5 mg/dL (8.4-10.2) H 11/28/21 00:38 Phosphorus 7.1 mg/dL (2.5-4.5) H 11/28/21 00:38 Magnesium 1.4 mg/dL (1.6-2.3) L 11/28/21 00:38 11/28/21 00:38 11/28/21 00:38 Assessment and Plan Plan: Impression 1. Severe acute kidney injury secondary to outlet obstruction from prostatism and possibly. Asymptomatic in spite of a creatinine of 11 with normal electrolytes 2. Chronic kidney disease likely from chronic obstruction from prostatism.. Baseline creatinine has been in the 4 to 5 range as of 03/05/2022, 07/30/2021. 3. Hypercalcemia secondary to excessive Tums with maximum calcium recorded at 17 in 2018. PTH vitamin D 125 and vitamin D 25-hydroxy levels were normal. Calcium had come down to normal in the interim. Calcium currently is 10.5. 4. Significant respiratory alkalosis with a pH of 7.61 pCO2 of 22 and bicarb of 24 on venous blood gases. Cause of respiratory alkalosis is not clear is awake alert oriented and there is no evidence of any septic syndrome. May be anxiety Recommendation 1. IV normal saline at 100 and hour 2. Hoping there will be some recovery of renal function. Patient is so far not producing any urine in spite of having a catheter in. 3.. Rule out upstream obstruction from retroperitoneal causes if she does not improve with the Sanchez catheter 4. Hoping that normal saline will improve the hypercalcemia will monitor, will maintain him at 75 mL an hour 5. Patient made aware that he may need dialysis in the next 24-48 hours Thank you this consultation and the need to follow closely
[2021-11-28] MEDS: SODIUM CHLORIDE 0.9% 1,000 ML IV SCH ×2 (11:41→23:42)
[2021-11-28 11:46] LABS: Glucose,Whole Blood 129 mg/dL (70-110)
[2021-11-28] MEDS: INSULIN ASPART (NovoLOG) 100 UNIT/ML VIAL SQ SCH ×3 (12:24→20:52)
--- NOTE | 2021-11-28 13:06 | P.CRDCN ---
History of Present Illness Consult date: 11/28/21 History of present illness: The patient is a 51-year-old male who is currently admitted to the hospital with acute kidney injury. Cardiology was consulted for new right bundle branch block. Initially he was thought to be in atrial flutter and was temporarily placed on a Cardizem drip. This has since been discontinued. He initially presented with nausea and vomiting, as well as some abdominal discomfort. The patient was interviewed and examined resting comfortably in bed. He only reports some abdominal and pelvic discomfort. No current cardiac symptoms and states he does not have a cardiac history. He has never seen a bottoming machine operator. DIAGNOSTICS: EKG shows sinus tachycardia with right bundle branch block CT of abdomen and pelvis shows marked dilated urinary bladder with bilateral hydronephrosis and hydroureter. Likely secondary to chronic bladder outlet obstruction. Lab data: WBC 8.4, hemoglobin 10.9, hematocrit 32.8, platelet 395, sodium 133, potassium 4.4, BUN 100, creatinine 11.54, AST 17, ALT 10, troponins 0.018, TSH 0.9 Vital signs: Blood pressure 153/78, pulse 94, SpO2 98% on room air, temp 98.1, respiratory rate 18 PAST MEDICAL HISTORY: Hydronephrosis, hypertension, diabetes REVIEW OF SYSTEMS: No fever or chills. No cough or expectoration. No diaphoresis. Patient denies headache, dizziness, blurred vision, double vision. Positive for abdominal discomfort. Nausea and vomiting resolved No hematochezia. No hematemesis. Denies any black stools or blood in his stools. Denies dysuria or hematuria. No muscle weakness or numbness. No chest pain or chest pressure. No difficulty breathing. No orthopnea. PHYSICAL EXAMINATION: This is a 51-year-old male in mild distress at the time of my examination. He reports abdominal discomfort. HEENT: Head is atraumatic, normocephalic. Pupils are equal, round. Sclerae anicteric. Conjunctivae are clear. Mucous membranes of the mouth are moist. Neck is supple. There is no jugular venous distention. No carotid bruit is heard. CHEST EXAMINATION: Lungs are clear to auscultation. No chest wall tenderness is noted on palpation or with deep breathing. HEART EXAMINATION: Heart regular rate and rhythm. S1, S2 heard. No murmurs, gallops or rub. ABDOMEN: Soft, tender to palpation. Bowel sounds are heard. No organomegaly noted. EXTREMITIES: 2+ peripheral pulses with no evidence of peripheral edema and no calf tenderness noted. NEUROLOGIC EXAMINATION: Patient is awake, alert and oriented x3. FINAL ASSESSMENT AND PLAN: Right bundle-branch block, currently asymptomatic Acute kidney injury, secondary to hydronephrosis Hypertension, uncontrolled, lisinopril currently held due to kidney injury History of diabetes Current smoker PLAN: Continue amlodipine Start hydralazine 25 mg 3 times a day Further recommendations will be based upon clinical course I am dictating on behalf of Dr Sergey Roger's history/physical and assessment/plan. Past Medical History Past Medical History: Diabetes Mellitus, GERD/Reflux, Renal Disease Additional Past Medical History / Comment(s): IDDM type II, diabetic neuropathy bilateral feet, DKA, renal insufficiency, hypercalemia, past perianal abscess/fistula with surgery, BPH/urinary retention with surgery, UTI. History of Any Multi-Drug Resistant Organisms: None Reported Past Surgical History: No Surgical Hx Reported Additional Past Surgical History / Comment(s): 08/2014 cystoscopy with TURP, rectal exam/I&D/fistulotomy. I&D back Past Anesthesia/Blood Transfusion Reactions: No Reported Reaction Past Psychological History: No Psychological Hx Reported Additional Psychological History / Comment(s): Pt lives alone. He works for [employer]. He states he does not drive and getting to appointments can be difficult. Smoking Status: Current every day smoker Past Alcohol Use History: None Reported Additional Past Alcohol Use History / Comment(s): Pt started smoking about 1989 and is a 2 ppd smoker. Past Drug Use History: None Reported - Past Family History Mother Family Medical History: Diabetes Mellitus Additional Family Medical History / Comment(s): mother is Father Family Medical History: No Reported History Additional Family Medical History / Comment(s): Father is healthy. Medications and Allergies Home Medications Medication Instructions Recorded Confirmed Type Insulin Aspart [NovoLOG Flexpen] See Protocol SQ AC-TID 07/09/19 11/28/21 History Insulin Degludec [Tresiba 70 units SQ HS 03/18/21 11/28/21 History Flextouch U-200 Pen] hydrALAZINE HCL 50 mg PO HS 03/18/21 11/28/21 History lisinopriL [Zestril] 40 mg PO HS 03/18/21 11/28/21 History Lansoprazole 30 mg PO DAILY 04/07/21 11/28/21 History Ondansetron [Zofran] 4 mg PO Q6H PRN 11/28/21 11/28/21 History Allergies Allergy/AdvReac Type Severity Reaction Status Date / Time No Known Allergies Allergy Verified 11/28/21 11:22 Physical Exam Vitals: Vital Signs Temp Pulse Pulse Resp BP BP Pulse Ox 11/28/21 04:09 98 18 11/28/21 03:40 98 16 183/82 94 L 11/28/21 02:45 90 20 141/77 96 11/28/21 02:32 96 18 188/93 11/28/21 02:09 98.1 F 99 24 200/102 97 11/28/21 00:12 98.5 F 116 H 18 216/114 99 Intake and Output 11/27/21 11/28/21 11/28/21 22:59 06:59 14:59 Intake Total 20 Output Total 100 Balance -80 Intake: IV 20 Invasive Line 1 20 Output: Urine 100 Other: Voiding Method Urinal # Voids 1 Weight 92.986 kg Results 11/28/21 00:38 11/28/21 00:38 Cardiac Enzymes 11/28/21 11/28/21 Range/Units 00:38 00:38 AST 17 (17-59) U/L Troponin I 0.018 (0.000-0.034) ng/mL CBC 11/28/21 Range/Units 00:38 WBC 8.4 (3.8-10.6) k/uL RBC 3.96 L (4.30-5.90) m/uL Hgb 10.9 L (13.0-17.5) gm/dL Hct 32.8 L (39.0-53.0) % Plt Count 395 (150-450) k/uL Comprehensive Metabolic Panel 11/28/21 Range/Units 00:38 Sodium 133 L (137-145) mmol/L Potassium 4.4 (3.5-5.1) mmol/L Chloride 96 L (98-107) mmol/L Carbon Dioxide 24 (22-30) mmol/L BUN 100 H (9-20) mg/dL Creatinine 11.54 H* (0.66-1.25) mg/dL Glucose 86 (74-99) mg/dL Calcium 10.5 H (8.4-10.2) mg/dL AST 17 (17-59) U/L ALT 10 (4-49) U/L Alkaline Phosphatase 105 (38-126) U/L Total Protein 5.9 L (6.3-8.2) g/dL Albumin 3.5 (3.5-5.0) g/dL Current Medications Generic Name Dose Route Start Last Admin Trade Name Freq PRN Reason Stop Dose Admin Amlodipine Besylate 10 mg 11/28/21 09:00 11/28/21 09:15 Amlodipine 10 Mg Tab PO 10 mg DAILY SHIRLEY Administration Heparin Sodium (Porcine) 5,000 unit 11/28/21 09:00 11/28/21 09:16 Heparin Sodium,Porcine/Pf 5,000 Unit/0.5 Ml Syringe SQ 5,000 unit Q12HR SHIRLEY Administration Hydralazine HCl 25 mg 11/28/21 09:30 Hydralazine Hcl 25 Mg Tab PO TID SHIRLEY Diltiazem HCl 125 mg/ Sodium 125 mls @ 5 mls/hr 11/28/21 00:30 Chloride IV .Q24H SHIRLEY 5 MG/HR Insulin Aspart 0 unit 11/28/21 12:30 Insulin Aspart (Novolog) 100 Unit/Ml Vial SQ ACHS SHIRLEY Protocol Naloxone HCl 0.2 mg 11/28/21 01:45 Naloxone 0.4 Mg/Ml 1 Ml Vial IV Q2M PRN Opioid Reversal Ondansetron HCl 4 mg 11/28/21 01:45 Ondansetron 4 Mg/2 Ml Vial IVP Q8HR PRN Nausea And Vomiting Pantoprazole Sodium 40 mg 11/28/21 09:00 11/28/21 09:16 Pantoprazole 40 Mg/10 Ml Vial IV 40 mg DAILY SHIRLEY Administration Prochlorperazine Edisylate 5 mg 11/28/21 01:48 Prochlorperazine Inj 10 Mg/2 Ml Vial IVP Q4HR PRN Nausea And Vomiting Tamsulosin HCl 0.4 mg 11/28/21 08:30 11/28/21 09:15 Tamsulosin 0.4 Mg Cap.Er.24h PO 0.4 mg PC-[id number] SHIRLEY Administration Intake and Output 11/27/21 11/28/21 11/28/21 22:59 06:59 14:59 Intake Total 20 Output Total 100 Balance -80 Intake: IV 20 Invasive Line 1 20 Output: Urine 100 Other: Voiding Method Urinal # Voids 1 Weight 92.986 kg 11/28/21 00:38 11/28/21 00:38
[2021-11-28] MEDS ORDERED: Magnesium Replacement Protocol 1 EACH MISC MISCELLANE PRN (15:35)
[2021-11-28] MEDS: MAGNESIUM SULFATE-D5W PMX 1 GM in DEXTROSE/WATER 1 100ML.BAG IVPB SCH ×3 (15:53→18:09)
[2021-11-28 16:41] LABS: Glucose,Whole Blood 122 mg/dL (70-110)
[2021-11-28 20:30] LABS: Glucose,Whole Blood 246 mg/dL (70-110)
[2021-11-29 06:02] LABS: Glucose,Whole Blood 262 mg/dL (70-110)
[2021-11-29] MEDS: INSULIN ASPART (NovoLOG) 100 UNIT/ML VIAL SQ SCH ×4 (06:35→20:20)
[2021-11-29] MEDS: TAMSULOSIN 0.4 MG CAP.ER.24H PO SCH (09:17)
[2021-11-29] MEDS: NICOTINE 21MG/24HR PATCH TRANSDERM SCH (09:17)
[2021-11-29] MEDS: HEPARIN SODIUM,PORCINE/PF 5,000 UNIT/0.5 ML SYRINGE SQ SCH ×2 (09:17→20:20)
[2021-11-29] MEDS: amLODIPine 10 MG TAB PO SCH (09:17)
[2021-11-29] MEDS: PANTOPRAZOLE 40 MG/10 ML VIAL IV SCH (09:17)
[2021-11-29] MEDS: hydrALAZINE HCL 25 MG TAB PO SCH ×3 (09:17→20:20)
--- NOTE | 2021-11-29 10:09 | P.PN ---
Subjective Progress Note Date: 11/29/21 Principal diagnosis: - History of Present Illness This is a 51-year-old male seen in consultation because of acute kidney injury. He came in because of nausea vomiting diarrhea for the last few days. Noted to have significant hydronephrosis and had a Sanchez catheter placed. He is known to have previously prostatism and chronic kidney disease Admission creatinine was 11.54, and previous to this on 07/30/2021 creatinine was 4.98. Creatinine has been elevated since 2013, in the 1-3 range. He did not follow-up with a safe deposit attendant. He was seen by our team when he was admitted previously on 04/07/2021 with acute kidney injury secondary to volume depletion. Previously on ultrasound in 2014 had shown some postvoid residual with mild concentric wall thickening but no obvious hydronephrosis that the time. Previously he was noted to have hypercalcemia,as high as 17.6 on 09/08/2017, at the time PTH was 13, vitamin D 25-hydroxy level was 14 and vitamin D 1, 25 dihydroxy level was less than 5 pg per mL. This was deemed to be from excessive Tums Currently his urine output is recorded at 325 0 mL, labs are pending. He remains completely asymptomatic eating well and denying any complaints at all no itching nondistended denying dizziness cramps chest pain shortness breath headache. He says is feeling much better today Objective - Vital Signs Vital signs: Vital Signs Temp 98.2 F 11/29/21 04:06 Pulse 98 11/29/21 04:06 Resp 16 11/29/21 04:06 BP 155/81 11/29/21 04:06 Pulse Ox 97 11/29/21 04:06 FiO2 Intake & Output 11/28/21 11/29/21 11/29/21 18:59 06:59 18:59 Intake Total 640 240 Output Total 2100 1150 650 Balance -1460 -1150 -410 Intake: Oral 640 240 Output: Urine 2100 1150 650 Other: Voiding Method Indwelling Catheter Indwelling Catheter On examination awake alert oriented comfortable HEENT exam no JVP neck is supple no facial asymmetry Lungs clear to auscultation percussion good air entry bilaterally Heart sounds unremarkable for any murmur rub gallop. Abdomen soft nontender. Extremity exam reveals trace edema Neurologically awake alert oriented no asterixis - Labs CBC & Chem 7: 11/28/21 00:38 11/28/21 00:38 Labs: Abnormal Lab Results - Last 24 Hours (Table) 11/28/21 11/28/21 11/28/21 Range/Units 11:44 16:38 20:29 POC Glucose (mg/dL) 129 H 122 H 246 H (70-110) mg/dL 11/29/21 Range/Units 06:00 POC Glucose (mg/dL) 262 H (70-110) mg/dL Assessment and Plan Plan: Impression 1. Severe acute kidney injury secondary to outlet obstruction from prostatism and possibly additionally volume depleted from nausea vomiting. Asymptomatic in spite of a creatinine of 11 with normal electrolytes. 2. Chronic kidney disease likely from chronic obstruction from prostatism.. Baseline creatinine has been in the 4 to 5 range as of 03/05/2022, 07/30/2021. 3. Hypercalcemia secondary to excessive Tums with maximum calcium recorded at 17 in 2018. PTH vitamin D 125 and vitamin D 25-hydroxy levels were normal. Calcium had come down to normal in the interim. Calcium currently is 10.5. 4. Significant respiratory alkalosis with a pH of 7.61 pCO2 of 22 and bicarb of 24 on venous blood gases. Cause of respiratory alkalosis is not clear is awake alert oriented and there is no evidence of any septic syndrome. May be anxiety Recommendation 1. Continue IV normal saline at 75 and hour 2. Hoping there will be some recovery of renal function. Patient is nonoliguric now. 3.. Hoping that normal saline will improve the hypercalcemia will monitor, 5. Patient made aware that he may need dialysis in the next 24-48 hours Thank you this consultation and the need to follow closely
[2021-11-29 11:19] LABS: Basophils # (A) 0.1 k/uL (0-0.2); Basophils % (A) 1 %; Eosinophils # (A) 0.3 k/uL (0-0.7); Eosinophils % (A) 3 %; HCT 29.9 % (39.0-53.0); HGB 9.9 gm/dL (13.0-17.5); Lymphocytes # (A) 0.9 k/uL (1.0-4.8); Lymphocytes % (A) 11 %; MCH 29.2 pg (25.0-35.0); MCHC 33.1 g/dL (31.0-37.0); Mean Platelet Volume 7.3; Monocytes # (A) 0.6 k/uL (0-1.0); Monocytes % (A) 7 %; Neutrophils # (A) 6.5 k/uL (1.3-7.7); Neutrophils % (A) 77 %; Platelet Count 306 k/uL (150-450); RBC 3.38 m/uL (4.30-5.90); RDW 13.4 % (11.5-15.5); WBC 8.4 k/uL (3.8-10.6)
[2021-11-29 11:21] LABS: Albumin 2.7 g/dL (3.5-5.0); Calcium 7.6 mg/dL (8.4-10.2); Magnesium 2.1 mg/dL (1.6-2.3); Phosphorus 7.6 mg/dL (2.5-4.5); Potassium 5.3 mmol/L (3.5-5.1); Total Bilirubin 0.1 mg/dL (0.2-1.3); Total Protein 4.9 g/dL (6.3-8.2)
[2021-11-29 11:26] LABS: MCV 88.3 fL (80.0-100.0)
[2021-11-29 11:32] LABS: Glucose,Whole Blood 174 mg/dL (70-110)
[2021-11-29] MEDS: SODIUM CHLORIDE 0.9% 1,000 ML IV SCH (14:52)
--- NOTE | 2021-11-29 15:32 | P.PN ---
Subjective This is a pleasant 51 years old male with past medical history of diabetes mellitus, hypertension. Chronic kidney disease, He is a patient of Dr. Mary who will resume the care of the patient on this coming 11/30/2021 Patient presents because of nausea vomiting and diarrhea and abdominal pain for 2 days patient says that he has been vomiting very frequently for example every 1 hour with no blood, he has poor bouts of bowel movements yesterday also with no blood or black stool. He had some mild periumbilical abdominal pain, nonradiating which is resolved now. He denies chest pain or dyspnea, he feels generally weak but no headache or dizziness, no limb weakness or numbness suggestive of stroke symptoms. He smokes about 2 packs per day and he was counseled to quit but he declines. However he wants nicotine patch while in hospital, he denies alcohol or illicit drugs he does not follow up with coding team lead as an outpatient on Admission patient vitals showing mild tachycardia more than 96, blood pressure was elevated 200/112. He was saturating 99% on room air and his been afebrile. Currently blood pressure 183/8012. Labs showing CBC with mild anemia at 10.9. Venous blood gas showing pH of 7.6, pCO2 22 Sodium 133. Creatinine elevated at 11.5, BUN is high at 100. On admission his glucose was low at 43 and 104. Calcium was elevated at 10.5, phosphorus is high at 7.1 troponin is negative. Serum alcohol less than 10 and acetone is negative. CT of the abdomen and pelvis with no IV contrast: Markedly dilated urinary bladder. There is some bilateral hydronephrosis and hydroureter which is much more on the left side and probably related to chronic bladder outlet obstruction and reflux EKG showing sinus tachycardia and [address]-T changes, with right bundle-branch block. Old EKG from 07/30/2021 showing sinus tachycardia with QTC duration 84 ms, however it's more prolonged on current EKG at 134 Patient has 100 mL of urine output this morning In the emergency room patient received several boluses of normal saline, Valium, Zofran, metoprolol and started on Cardizem drip, labetalol and Protonix. 11/29/2021 Patient today fully awake and oriented, no distress, no pain. No new symptom. His abdominal pain diarrhea and vomiting have resolved since admission. He told me this morning he tolerates diet well. Abdomen soft. Sanchez catheter in place with clear urine. Vital signs stable. WBC is normal. Hemoglobin 9.9. Creatinine remains the same as yesterday as 11.6. Patient is non-oliguric and further care per Nephrology team regarding his acute kidney injury He is mildly tachycardic and was controlled to 262 and 174. Objective - Vital Signs Vital signs: Vital Signs Temp 98.1 F 11/29/21 08:00 Pulse 105 H 11/29/21 08:00 Resp 16 11/29/21 08:00 BP 168/85 11/29/21 08:00 Pulse Ox 100 11/29/21 08:00 FiO2 Intake & Output 11/28/21 11/29/21 11/29/21 18:59 06:59 18:59 Intake Total 640 240 Output Total 2100 1150 650 Balance -1460 -1150 -410 Intake: Oral 640 240 Output: Urine 2100 1150 650 Other: Voiding Method Indwelling Catheter Indwelling Catheter Indwelling Catheter - Exam GENERAL: The patient is alert and oriented x3, not in any acute distress. Well developed, well nourished. HEENT: Pupils are round and equally reacting to light. EOMI. No scleral icterus. No conjunctival pallor. Normocephalic, atraumatic. No pharyngeal erythema. No thyromegaly. CARDIOVASCULAR: S1 and S2 present. No murmurs, rubs, or gallops. PULMONARY: Chest is clear to auscultation, no wheezing or crackles. -ABDOMEN: Soft, nontender, nondistended, normoactive bowel sounds. No palpable organomegaly. Sanchez catheter: Has clear urine MUSCULOSKELETAL: No joint swelling or deformity. EXTREMITIES: No cyanosis, clubbing, or pedal edema. NEUROLOGICAL: Gross neurological examination did not reveal any focal deficits. SKIN: No rashes. no petechiae. - Labs CBC & Chem 7: 11/29/21 10:53 11/29/21 10:53 Labs: Abnormal Lab Results - Last 24 Hours (Table) 11/28/21 11/28/21 11/28/21 Range/Units 11:44 16:38 20:29 POC Glucose (mg/dL) 129 H 122 H 246 H (70-110) mg/dL 11/29/21 Range/Units 06:00 POC Glucose (mg/dL) 262 H (70-110) mg/dL Assessment and Plan Assessment: Acute gastroenteritis, could be viral. There is old Acute kidney injury, secondary to combination of hypovolemia and urinary retention and obstructive uropathy. Also patient was on CHEMO inhibitor which is held now. On the top of his advanced chronic kidney disease Acute urinary retention status post Sanchez catheter Bilateral hydronephrosis and hydroureter, more on the left side with distended b ladder Dehydration, present on admission. Improvement New right-sided bundle-branch block. Asymptomatic Diabetes mellitus, with hypoglycemia on admission Hypertension Chronic kidney disease, stage IV. Most likely diabetic nephropathy Plan: This is a pleasant 51 years old male who presents with QUIQUE, urinary retention Continue with Sanchez catheter, continue with [place] urology and nephrology team consult. Patient may need renal replacement therapy if no improvement and per coding team lead Monitor input and output. Patient is non-oliguric hold long-acting insulin and continue with insulin sliding scale. Hold lisinopril Consults cardiology For abnormal EKG with right bundle branch block Continue with Norvasc, and when necessary hydralazine Labs and medication were reviewed.. Continue same treatment. Continue with symptomatic treatment. Resume home medication. Monitor lytes and vitals. DVT and GI prophylaxis. Further recommendations as per clinical course of the patient DVT prophylaxis: Subcutaneous heparin GI Prophylaxis: Ppi PT/OT: Pending Prognosis is guarded
[2021-11-29 16:41] LABS: Glucose,Whole Blood 269 mg/dL (70-110)
[2021-11-29 20:02] LABS: Glucose,Whole Blood 199 mg/dL (70-110)
[2021-11-30 04:11] LABS: Glucose,Whole Blood 274 mg/dL (70-110)
[2021-11-30] MEDS: SODIUM CHLORIDE 0.9% 1,000 ML IV SCH ×2 (04:18→16:26)
[2021-11-30] MEDS ORDERED: OXYMETAZOLINE 0.05% NASL SPRAY 1 SPRAY BOTTLE NASAL PRN (05:03)
[2021-11-30 05:31] LABS: Basophils # (A) 0.1 k/uL (0-0.2); Basophils % (A) 1 %; Eosinophils # (A) 0.3 k/uL (0-0.7); Eosinophils % (A) 4 %; HCT 31.4 % (39.0-53.0); Lymphocytes # (A) 0.9 k/uL (1.0-4.8); Lymphocytes % (A) 12 %; MCH 28.5 pg (25.0-35.0); MCHC 31.9 g/dL (31.0-37.0); MCV 89.4 fL (80.0-100.0); Monocytes # (A) 0.5 k/uL (0-1.0); Monocytes % (A) 6 %; Neutrophils # (A) 5.8 k/uL (1.3-7.7); Neutrophils % (A) 76 %; Platelet Count 317 k/uL (150-450); RBC 3.51 m/uL (4.30-5.90); RDW 13.3 % (11.5-15.5); WBC 7.7 k/uL (3.8-10.6)
[2021-11-30 05:43] LABS: Calcium 7.1 mg/dL (8.4-10.2); Magnesium 1.9 mg/dL (1.6-2.3); Potassium 5.7 mmol/L (3.5-5.1)
[2021-11-30 06:29] LABS: Glucose,Whole Blood 224 mg/dL (70-110)
[2021-11-30] MEDS: INSULIN ASPART (NovoLOG) 100 UNIT/ML VIAL SQ SCH ×4 (06:45→20:09)
[2021-11-30] MEDS: amLODIPine 10 MG TAB PO SCH (08:18)
[2021-11-30] MEDS: PANTOPRAZOLE 40 MG/10 ML VIAL IV SCH (08:18)
[2021-11-30] MEDS: hydrALAZINE HCL 25 MG TAB PO SCH ×3 (08:18→20:40)
[2021-11-30] MEDS: HEPARIN SODIUM,PORCINE/PF 5,000 UNIT/0.5 ML SYRINGE SQ SCH ×2 (08:18→20:40)
[2021-11-30] MEDS: NICOTINE 21MG/24HR PATCH TRANSDERM SCH (08:18)
[2021-11-30] MEDS: TAMSULOSIN 0.4 MG CAP.ER.24H PO SCH (08:18)
--- NOTE | 2021-11-30 08:30 | P.PN ---
Progress Note - Text Progress Note Date: 11/30/21 Mr. Seymour's serum creatinine level has unfortunately decreased only to 11.06. I am not optimistic that he will regain considerable renal function, and he may require dialysis. I would suggest that the Sanchez catheter remain in place. Given that the retention appears to be chronic, I anticipate the Mr. Seymour will be advised to resume intermittent self-catheterization long-term. This will be initiated in the office upon discharge.
--- NOTE | 2021-11-30 08:32 | P.PN ---
Subjective Principal diagnosis: Acute kidney injury This is a 51-year-old white male with known history of diabetes with nephropathy history of long-term incomplete bladder emptying and history of melanoma who is admitted essentially for acute on chronic kidney injury creatinine is 11. Appreciate multiple consultants. The patient is a symptomatically otherwise. Objective - Vital Signs Vital signs: Vital Signs Temp 97.8 F 11/30/21 04:00 Pulse 106 H 11/30/21 04:00 Resp 15 11/30/21 04:00 BP 158/88 11/30/21 04:00 Pulse Ox 99 11/30/21 07:18 FiO2 Intake & Output 11/29/21 11/30/21 11/30/21 18:59 06:59 18:59 Intake Total 1773 Output Total 650 1450 500 Balance 1123 -1450 -500 Weight 93.1 kg Intake: Intake, IV Titration 675 Amount Sodium Chloride 0.9% 1, 675 000 ml @ 75 mls/hr IV . [id number] [facility] Rx#:[id number] Oral 1098 Output: Urine 650 1450 500 Other: Voiding Method Indwelling Catheter Indwelling Catheter - Constitutional General appearance: Present: average body habitus - EENT Eyes: Absent: abnormal pupil - Neck Neck: Absent: lymphadenopathy - Respiratory Respiratory: bilateral: CTA - Cardiovascular Rhythm: regular Heart sounds: normal: S1, S2 Abnormal Heart Sounds: Absent: S3 Gallop - Gastrointestinal General gastrointestinal: Present: soft. Absent: tenderness - Integumentary Integumentary: Absent: cellulitis - Psychiatric Psychiatric: Present: A&O x's 3 - Labs CBC & Chem 7: 11/30/21 05:21 11/30/21 05:21 Labs: Abnormal Lab Results - Last 24 Hours (Table) 11/29/21 11/29/21 11/29/21 Range/Units 10:53 10:53 11:30 RBC 3.38 L (4.30-5.90) m/uL Hgb 9.9 L (13.0-17.5) gm/dL Hct 29.9 L (39.0-53.0) % Lymphocytes # 0.9 L (1.0-4.8) k/uL Sodium 134 L (137-145) mmol/L Potassium 5.3 H (3.5-5.1) mmol/L Carbon Dioxide (22-30) mmol/L BUN 89 H (9-20) mg/dL Creatinine 11.66 H* (0.66-1.25) mg/dL Glucose 145 H (74-99) mg/dL POC Glucose (mg/dL) 174 H (70-110) mg/dL Calcium 7.6 L (8.4-10.2) mg/dL Phosphorus 7.6 H (2.5-4.5) mg/dL Total Bilirubin 0.1 L (0.2-1.3) mg/dL AST 13 L (17-59) U/L Total Protein 4.9 L (6.3-8.2) g/dL Albumin 2.7 L (3.5-5.0) g/dL 11/29/21 11/29/21 11/30/21 Range/Units 16:35 19:57 04:10 RBC (4.30-5.90) m/uL Hgb (13.0-17.5) gm/dL Hct (39.0-53.0) % Lymphocytes # (1.0-4.8) k/uL Sodium (137-145) mmol/L Potassium (3.5-5.1) mmol/L Carbon Dioxide (22-30) mmol/L BUN (9-20) mg/dL Creatinine (0.66-1.25) mg/dL Glucose (74-99) mg/dL POC Glucose (mg/dL) 269 H 199 H 274 H (70-110) mg/dL Calcium (8.4-10.2) mg/dL Phosphorus (2.5-4.5) mg/dL Total Bilirubin (0.2-1.3) mg/dL AST (17-59) U/L Total Protein (6.3-8.2) g/dL Albumin (3.5-5.0) g/dL 11/30/21 11/30/21 11/30/21 Range/Units 05:21 05:21 06:28 RBC 3.51 L (4.30-5.90) m/uL Hgb 10.0 L (13.0-17.5) gm/dL Hct 31.4 L (39.0-53.0) % Lymphocytes # 0.9 L (1.0-4.8) k/uL Sodium 130 L (137-145) mmol/L Potassium 5.7 H (3.5-5.1) mmol/L Carbon Dioxide 20 L (22-30) mmol/L BUN 88 H (9-20) mg/dL Creatinine 11.06 H* (0.66-1.25) mg/dL Glucose 229 H (74-99) mg/dL POC Glucose (mg/dL) 224 H (70-110) mg/dL Calcium 7.1 L (8.4-10.2) mg/dL Phosphorus (2.5-4.5) mg/dL Total Bilirubin (0.2-1.3) mg/dL AST (17-59) U/L Total Protein (6.3-8.2) g/dL Albumin (3.5-5.0) g/dL Assessment and Plan (1) Acute kidney injury Current Visit: Yes Status: Acute Code(s): N17.9 - ACUTE KIDNEY FAILURE, UNSPECIFIED SNOMED Code(s): 50026974 (2) Diabetes mellitus Current Visit: Yes Status: Acute Code(s): E11.9 - TYPE 2 DIABETES MELLITUS WITHOUT COMPLICATIONS SNOMED Code(s): 06648690 (3) History of melanoma Current Visit: No Status: Acute Code(s): Z85.820 - PERSONAL HISTORY OF MALIGNANT MELANOMA OF SKIN SNOMED Code(s): 449052492 (4) Urinary retention Current Visit: No Status: Acute Code(s): R33.9 - RETENTION OF URINE, UN SPECIFIED SNOMED Code(s): 444111442 Plan: Question element of obstructive uropathy. We'll check serial creatinine daily. Appreciate nephrology and urology input. Prognosis is guarded.
[2021-11-30] MEDS ORDERED: SODIUM ZIRCONIUM CYCLOSILICATE 10 GM PACKET PO ONE (10:43)
--- NOTE | 2021-11-30 10:44 | P.PN ---
Subjective Patient is seen in follow-up for acute kidney injury. No improvement in renal function. Has a Sanchez catheter. Nonoliguric. Oral intake fair. No vomiting today. Feels weak. Hemodynamically stable. Vital signs are stable. General: Awake. No acute distress. HEENT: Head exam is unremarkable. HEART: Rate and Rhythm are regular. Lungs: Breath sounds decreased. ABDOMEN: Soft, no distention. EXTREMITITES: Trace edema. Objective - Vital Signs Vital signs: Vital Signs Temp 98.3 F 11/30/21 08:13 Pulse 100 11/30/21 08:13 Resp 18 11/30/21 08:13 BP 149/76 11/30/21 08:13 Pulse Ox 99 11/30/21 08:13 FiO2 Intake & Output 11/29/21 11/30/21 11/30/21 18:59 06:59 18:59 Intake Total 1773 240 Output Total 650 1450 500 Balance 1123 -1450 -260 Weight 93.1 kg Intake: Intake, IV Titration 675 Amount Sodium Chloride 0.9% 1, 675 000 ml @ 75 mls/hr IV . [id number] [facility] Rx#:[id number] Oral 1098 240 Output: Urine 650 1450 500 Other: Voiding Method Indwelling Catheter Indwelling Catheter Indwelling Catheter - Labs CBC & Chem 7: 11/30/21 05:21 11/30/21 05:21 Labs: Abnormal Lab Results - Last 24 Hours (Table) 11/29/21 11/29/21 11/29/21 Range/Units 10:53 10:53 11:30 RBC 3.38 L (4.30-5.90) m/uL Hgb 9.9 L (13.0-17.5) gm/dL Hct 29.9 L (39.0-53.0) % Lymphocytes # 0.9 L (1.0-4.8) k/uL Sodium 134 L (137-145) mmol/L Potassium 5.3 H (3.5-5.1) mmol/L Carbon Dioxide (22-30) mmol/L BUN 89 H (9-20) mg/dL Creatinine 11.66 H* (0.66-1.25) mg/dL Glucose 145 H (74-99) mg/dL POC Glucose (mg/dL) 174 H (70-110) mg/dL Calcium 7.6 L (8.4-10.2) mg/dL Phosphorus 7.6 H (2.5-4.5) mg/dL Total Bilirubin 0.1 L (0.2-1.3) mg/dL AST 13 L (17-59) U/L Total Protein 4.9 L (6.3-8.2) g/dL Albumin 2.7 L (3.5-5.0) g/dL 11/29/21 11/29/21 11/30/21 Range/Units 16:35 19:57 04:10 RBC (4.30-5.90) m/uL Hgb (13.0-17.5) gm/dL Hct (39.0-53.0) % Lymphocytes # (1.0-4.8) k/uL Sodium (137-145) mmol/L Potassium (3.5-5.1) mmol/L Carbon Dioxide (22-30) mmol/L BUN (9-20) mg/dL Creatinine (0.66-1.25) mg/dL Glucose (74-99) mg/dL POC Glucose (mg/dL) 269 H 199 H 274 H (70-110) mg/dL Calcium (8.4-10.2) mg/dL Phosphorus (2.5-4.5) mg/dL Total Bilirubin (0.2-1.3) mg/dL AST (17-59) U/L Total Protein (6.3-8.2) g/dL Albumin (3.5-5.0) g/dL 11/30/21 11/30/21 11/30/21 Range/Units 05:21 05:21 06:28 RBC 3.51 L (4.30-5.90) m/uL Hgb 10.0 L (13.0-17.5) gm/dL Hct 31.4 L (39.0-53.0) % Lymphocytes # 0.9 L (1.0-4.8) k/uL Sodium 130 L (137-145) mmol/L Potassium 5.7 H (3.5-5.1) mmol/L Carbon Dioxide 20 L (22-30) mmol/L BUN 88 H (9-20) mg/dL Creatinine 11.06 H* (0.66-1.25) mg/dL Glucose 229 H (74-99) mg/dL POC Glucose (mg/dL) 224 H (70-110) mg/dL Calcium 7.1 L (8.4-10.2) mg/dL Phosphorus (2.5-4.5) mg/dL Total Bilirubin (0.2-1.3) mg/dL AST (17-59) U/L Total Protein (6.3-8.2) g/dL Albumin (3.5-5.0) g/dL Assessment and Plan Plan: Assessment: 1. Acute kidney injury secondary to ATN from hypovolemia and obstructive uropathy. Creatinine 11.06 today. Nonoliguric. 2. Chronic kidney disease stage IV/5 with creatinine in the range of 2.88-5.88 from June 2020 to July 2021. Etiology is diabetic kidney disease. 3. Urinary retention with bilateral hydronephrosis noted on CAT scan. Has a Sanchez catheter. On Flomax. Urology following. 4. Hypertension with chronic kidney disease. 5. Hyperkalemia secondary to acute kidney injury, metabolic acidosis and hyperglycemia. 6. Metabolic acidosis secondary to acute kidney injury. 7. Diabetes mellitus. Plan: Decrease rate of normal saline to 50 mL an hour. Maintain Sanchez catheter per urology recommendations. Due to no improvement in renal function and severely depressed GFR and hyperkalemia, initiate renal replacement therapy. Patient agreeable. Consult vascular surgery for permacath placement. First treatment of hemodialysis today and second treatment tomorrow. manager camp to set up outpatient hemodialysis. Monitor for renal recovery. Lokelma 10 g once now. Repeat potassium level this evening.
[2021-11-30 11:25] LABS: Glucose,Whole Blood 72 mg/dL (70-110)
--- NOTE | 2021-11-30 14:11 | P.GSCN ---
History of Present Illness History of present illness: 51-year-old gentleman for acute chronic renal failure patient has a creatinine of 11.66 and began of 85 potassium 5.3 patient is scheduled to have a dialysis catheter Medical history history of acute chronic renal failure, diabetes mellitus, metabolic acidosis, hyperkalemia Neck examination neck is supple Chest is clear good entry both lungs first and second sound present Abdomen soft nontender and graft vascular related radial femoral 1+ Plan is placement of a dialysis catheter risk and complication discussed Past Medical History Past Medical History: Diabetes Mellitus, GERD/Reflux, Renal Disease Additional Past Medical History / Comment(s): IDDM type II, diabetic neuropathy bilateral feet, DKA, renal insufficiency, hypercalemia, past perianal abscess/fistula with surgery, BPH/urinary retention with surgery, UTI. History of Any Multi-Drug Resistant Organisms: None Reported Past Surgical History: No Surgical Hx Reported Additional Past Surgical History / Comment(s): 08/2014 cystoscopy with TURP, rectal exam/I&D/fistulotomy. I&D back Past Anesthesia/Blood Transfusion Reactions: No Reported Reaction Past Psychological History: No Psychological Hx Reported Additional Psychological History / Comment(s): Pt lives alone. He works for [employer]. He states he does not drive and getting to appointments can be difficult. Smoking Status: Current every day smoker Past Alcohol Use History: None Reported Additional Past Alcohol Use History / Comment(s): Pt started smoking about 1989 and is a 2 ppd smoker. Past Drug Use History: None Reported - Past Family History Mother Family Medical History: Diabetes Mellitus Additional Family Medical History / Comment(s): mother is Father Family Medical History: No Reported History Additional Family Medical History / Comment(s): Father is healthy. Medications and Allergies Home Medications Medication Instructions Recorded Confirmed Type Insulin Aspart [NovoLOG Flexpen] See Protocol SQ AC-TID 07/09/19 11/28/21 Hi story Insulin Degludec [Tresiba 70 units SQ HS 03/18/21 11/28/21 History Flextouch U-200 Pen] hydrALAZINE HCL 50 mg PO HS 03/18/21 11/28/21 History lisinopriL [Zestril] 40 mg PO HS 03/18/21 11/28/21 History Lansoprazole 30 mg PO DAILY 04/07/21 11/28/21 History Ondansetron [Zofran] 4 mg PO Q6H PRN 11/28/21 11/28/21 History Allergies Allergy/AdvReac Type Severity Reaction Status Date / Time No Known Allergies Allergy Verified 11/28/21 11:22 Surgical - Exam Vital Signs Temp Pulse Resp BP Pulse Ox 98.5 F 116 H 18 216/114 99 11/28/21 00:12 11/28/21 00:12 11/28/21 00:12 11/28/21 00:12 11/28/21 00:12 Results - Labs 11/30/21 05:21 11/30/21 05:21 Abnormal Lab Results - Last 24 Hours (Table) 11/29/21 11/29/21 11/30/21 Range/Units 16:35 19:57 04:10 RBC (4.30-5.90) m/uL Hgb (13.0-17.5) gm/dL Hct (39.0-53.0) % Lymphocytes # (1.0-4.8) k/uL Sodium (137-145) mmol/L Potassium (3.5-5.1) mmol/L Carbon Dioxide (22-30) mmol/L BUN (9-20) mg/dL Creatinine (0.66-1.25) mg/dL Glucose (74-99) mg/dL POC Glucose (mg/dL) 269 H 199 H 274 H (70-110) mg/dL Calcium (8.4-10.2) mg/dL 11/30/21 11/30/21 11/30/21 Range/Units 05:21 05:21 06:28 RBC 3.51 L (4.30-5.90) m/uL Hgb 10.0 L (13.0-17.5) gm/dL Hct 31.4 L (39.0-53.0) % Lymphocytes # 0.9 L (1.0-4.8) k/uL Sodium 130 L (137-145) mmol/L Potassium 5.7 H (3.5-5.1) mmol/L Carbon Dioxide 20 L (22-30) mmol/L BUN 88 H (9-20) mg/dL Creatinine 11.06 H* (0.66-1.25) mg/dL Glucose 229 H (74-99) mg/dL POC Glucose (mg/dL) 224 H (70-110) mg/dL Calcium 7.1 L (8.4-10.2) mg/dL Diabetes panel 11/30/21 Range/Units 05:21 Sodium 130 L (137-145) mmol/L Potassium 5.7 H (3.5-5.1) mmol/L Chloride 103 (98-107) mmol/L Carbon Dioxide 20 L (22-30) mmol/L BUN 88 H (9-20) mg/dL Creatinine 11.06 H* (0.66-1.25) mg/dL Glucose 229 H (74-99) mg/dL Calcium 7.1 L (8.4-10.2) mg/dL Calcium panel 11/30/21 Range/Units 05:21 Calcium 7.1 L (8.4-10.2) mg/dL Pituitary panel 11/30/21 Range/Units 05:21 Sodium 130 L (137-145) mmol/L Potassium 5.7 H (3.5-5.1) mmol/L Chloride 103 (98-107) mmol/L Carbon Dioxide 20 L (22-30) mmol/L BUN 88 H (9-20) mg/dL Creatinine 11.06 H* (0.66-1.25) mg/dL Glucose 229 H (74-99) mg/dL Calcium 7.1 L (8.4-10.2) mg/dL Adrenal panel 11/30/21 Range/Units 05:21 Sodium 130 L (137-145) mmol/L Potassium 5.7 H (3.5-5.1) mmol/L Chloride 103 (98-107) mmol/L Carbon Dioxide 20 L (22-30) mmol/L BUN 88 H (9-20) mg/dL Creatinine 11.06 H* (0.66-1.25) mg/dL Glucose 229 H (74-99) mg/dL Calcium 7.1 L (8.4-10.2) mg/dL
[2021-11-30] MEDS ORDERED: ALPRAZolam 0.25 MG TAB PO STA (14:49)
[2021-11-30 14:59] LABS: Glucose,Whole Blood 88 mg/dL (70-110)
[2021-11-30] MEDS ORDERED: ALPRAZolam 0.5 MG TAB PO PRN (15:20)
[2021-11-30 16:21] LABS: Glucose,Whole Blood 74 mg/dL (70-110)
[2021-11-30] MEDS: MIDAZOLAM 2 MG/2 ML VIAL IVP ONE ×2 (16:48→17:03)
[2021-11-30] MEDS: fentaNYL (PF) 50 MCG/ML 2 ML AMP IVP ONE ×2 (16:48→17:06)
[2021-11-30] MEDS ORDERED: LIDOCAINE 1% INJ 10MG/ML (30 ML VIAL-PF) SQ ONE (16:50)
[2021-11-30] MEDS ORDERED: IV FLUID CONTINUATION 1,000 ML IV ONE (16:57)
--- NOTE | 2021-11-30 18:00 | XR ---
EXAMINATION TYPE: XR chest 1V portable DATE OF EXAM: 11/30/2021 COMPARISON: 07/30/2021 HISTORY: Altered mental status TECHNIQUE: Single view FINDINGS: There is no heart failure nor confluent pneumonic infiltrate. Costophrenic angles are clear . There is right central venous catheter with tip in the top of the right atrium. There are chest zack ds. IMPRESSION: No active cardiopulmonary disease. There is clearing of the mild interstitial infiltrates in the lower lobes compared to old exam.
[2021-11-30 19:45] LABS: Glucose,Whole Blood 75 mg/dL (70-110)
[2021-11-30 23:43] LABS: Hepatitis B Surface Antigen Nonreactive (Nonreactive)
[2021-12-01] MEDS ORDERED: HYDROcodone/APAP 5-325MG 1 EACH TAB PO PRN (01:11)
[2021-12-01 03:12] LABS: Hepatitis B Surface AB- Quant 3.5 mIU/mL; Hepatitis B Surface Antibody Nonreactive (Nonreactive)
[2021-12-01 06:15] LABS: Glucose,Whole Blood 365 mg/dL (70-110)
[2021-12-01] MEDS: INSULIN ASPART (NovoLOG) 100 UNIT/ML VIAL SQ SCH ×4 (06:31→20:51)
--- NOTE | 2021-12-01 08:28 | IR ---
Fluoroscopy HISTORY: Central venous catheter placement 2.6 minutes fluoroscopy time supplied to the referring clinician. 62 intraoperative C-arm images doc ument the procedure. See dictated report from vascular surgery.
--- NOTE | 2021-12-01 08:40 | P.PN ---
Subjective Principal diagnosis: Acute kidney injury This is a 51-year-old white male with known history of diabetes with nephropathy history of long-term incomplete bladder emptying and history of melanoma who is admitted essentially for acute on chronic kidney injury creatinine is 11. Appreciate multiple consultants. The patient is a symptomatically otherwise. Status post dialysis. Pain is nominal with [place] Objective - Vital Signs Vital signs: Vital Signs Temp 98.0 F 12/01/21 07:57 Pulse 97 12/01/21 07:57 Resp 16 12/01/21 07:57 BP 163/82 12/01/21 07:57 Pulse Ox 98 12/01/21 07:57 FiO2 Intake & Output 11/30/21 12/01/21 12/01/21 18:59 06:59 18:59 Intake Total 290 740 540 Output Total 1750 2075 Balance -1460 -1335 540 Intake: IV 50 Intake, IV Titration 500 Amount Sodium Chloride 0.9% 1, 500 000 ml @ 50 mls/hr IV . Q20H [facility] Rx#:[id number] Oral 240 240 540 Output: Urine 1750 1575 Hemodialysis 500 Other: Voiding Method Indwelling Catheter Indwelling Catheter - Constitutional General appearance: Present: average body habitus - EENT Eyes: Absent: abnormal pupil - Neck Neck: Absent: lymphadenopathy - Respiratory Respiratory: bilateral: CTA - Cardiovascular Rhythm: regular Heart sounds: normal: S1, S2 Abnormal Heart Sounds: Absent: S3 Gallop - Gastrointestinal General gastrointestinal: Present: soft. Absent: tenderness - Integumentary Integumentary: Absent: cellulitis - Neurologic Neurologic: Present: CNII-XII intact - Labs CBC & Chem 7: 11/30/21 05:21 11/30/21 19:45 Labs: Abnormal Lab Results - Last 24 Hours (Table) 12/01/21 Range/Units 06:13 POC Glucose (mg/dL) 365 H (70-110) mg/dL Assessment and Plan (1) Acute kidney injury Current Visit: Yes Status: Acute Code(s): N17.9 - ACUTE KIDNEY FAILURE, UNSPECIFIED SNOMED Code(s): 64497626 (2) Diabetes mellitus Current Visit: Yes Status: Acute Code(s): E11.9 - TYPE 2 DIABETES MELLITUS WITHOUT COMPLICATIONS SNOMED Code(s): 57527269 (3) History of melanoma Current Visit: No Status: Acute Code(s): Z85.820 - PERSONAL HISTORY OF MALIGNANT MELANOMA OF SKIN SNOMED Code(s): 264531974 (4) Urinary retention Current Visit: No Status: Acute Code(s): R33.9 - RETENTION OF URINE, UNSPECIFIED SNOMED Code(s): 252589829 Plan: Question element of obstructive uropathy. We'll check serial creatinine daily. Appreciate nephrology and urology input. Prognosis is guarded. Check CBC and CMP in a.m.
[2021-12-01] MEDS: SODIUM CHLORIDE 0.9% 1,000 ML IV SCH (09:04)
[2021-12-01] MEDS: NICOTINE 21MG/24HR PATCH TRANSDERM SCH (09:04)
[2021-12-01 09:55] LABS: HCT 28.7 % (39.0-53.0); HGB 9.5 gm/dL (13.0-17.5); MCH 29.1 pg (25.0-35.0); MCHC 33.1 g/dL (31.0-37.0); MCV 88.1 fL (80.0-100.0); Mean Platelet Volume 7.2; Platelet Count 288 k/uL (150-450); RBC 3.25 m/uL (4.30-5.90); RDW 13.1 % (11.5-15.5); WBC 7.1 k/uL (3.8-10.6)
[2021-12-01 10:09] LABS: Albumin 2.6 g/dL (3.5-5.0); Calcium 6.6 mg/dL (8.4-10.2); Magnesium 1.8 mg/dL (1.6-2.3); Potassium 4.8 mmol/L (3.5-5.1); Total Bilirubin 0.2 mg/dL (0.2-1.3); Total Protein 4.8 g/dL (6.3-8.2)
[2021-12-01 11:45] LABS: Glucose,Whole Blood 70 mg/dL (70-110)
[2021-12-01] MEDS: PANTOPRAZOLE 40 MG/10 ML VIAL IV SCH (12:33)
[2021-12-01] MEDS: HEPARIN SODIUM,PORCINE/PF 5,000 UNIT/0.5 ML SYRINGE SQ SCH ×2 (12:34→19:53)
[2021-12-01] MEDS: hydrALAZINE HCL 25 MG TAB PO SCH ×3 (12:34→19:53)
[2021-12-01] MEDS: amLODIPine 10 MG TAB PO SCH (12:34)
[2021-12-01] MEDS: TAMSULOSIN 0.4 MG CAP.ER.24H PO SCH (12:34)
[2021-12-01] MEDS ORDERED: hydrALAZINE HCL 20 MG/ML 1 ML VIAL IVP PRN (14:04)
--- NOTE | 2021-12-01 14:05 | P.PN ---
Subjective Patient is seen in follow-up for acute kidney injury. Started on hemodialysis 11/30/2021 due to no improvement in renal function. Has a Sanchez catheter. Nonoliguric. Oral intake fair. No vomiting or diarrhea today. Vital signs are stable. General: Awake. No acute distress. HEENT: Head exam is unremarkable. HEART: Rate and Rhythm are regular. Lungs: Breath sounds decreased. ABDOMEN: Soft, no distention. EXTREMITITES: Trace edema. Objective - Vital Signs Vital signs: Vital Signs Temp 98.0 F 12/01/21 07:57 Pulse 97 12/01/21 08:00 Resp 16 12/01/21 08:00 BP 180/68 12/01/21 12:12 Pulse Ox 98 12/01/21 07:57 FiO2 Intake & Output 11/30/21 12/01/21 12/01/21 18:59 06:59 18:59 Intake Total 290 740 540 Output Total 1750 2075 500 Balance -1460 -1335 40 Intake: IV 50 Intake, IV Titration 500 Amount Sodium Chloride 0.9% 1, 500 000 ml @ 50 mls/hr IV . Q20H [facility] Rx#:[id number] Oral 240 240 540 Output: Urine 1750 1575 Hemodialysis 500 500 Other: Voiding Method Indwelling Catheter Indwelling Catheter Indwelling Catheter - Labs CBC & Chem 7: 12/01/21 09:00 12/01/21 09:00 Labs: Abnormal Lab Results - Last 24 Hours (Table) 12/01/21 12/01/21 12/01/21 Range/Units 06:13 09:00 09:00 RBC 3.25 L (4.30-5.90) m/uL Hgb 9.5 L (13.0-17.5) gm/dL Hct 28.7 L (39.0-53.0) % Sodium 136 L (137-145) mmol/L BUN 60 H (9-20) mg/dL Creatinine 8.11 H* (0.66-1.25) mg/dL Glucose 126 H (74-99) mg/dL POC Glucose (mg/dL) 365 H (70-110) mg/dL Calcium 6.6 L (8.4-10.2) mg/dL AST 13 L (17-59) U/L Total Protein 4.8 L (6.3-8.2) g/dL Albumin 2.6 L (3.5-5.0) g/dL Assessment and Plan Plan: Assessment: 1. Acute kidney injury secondary to ATN from hypovolemia and obstructive uropathy. Started on hemodialysis 11/30/2021 due to no improvement in renal function. Nonoliguric. 2. Chronic kidney disease stage IV/5 with creatinine in the range of 2.88-5.88 from June 2020 to July 2021. Etiology is diabetic kidney disease. 3. Urinary retention with bilateral hydronephrosis noted on CAT scan. Has a Sanchez catheter. On Flomax. Urology following. 4. Hypertension with chronic kidney disease. Blood pressure high this morning but medications given after dialysis. Will add when necessary hydralazine for now. 5. Hyperkalemia secondary to acute kidney injury, metabolic acidosis and hyperglycemia. Improved postdialysis. 6. Metabolic acidosis secondary to acute kidney injury. Improved postdialysis. 7. Diabetes mellitus. 8. Anemia of chronic kidney disease. Rule out iron deficiency. Plan: Hep-Lock IV fluids. Maintain Sanchez catheter per urology recommendations. Third treatment of hemodialysis tomorrow. manager shipping to set up outpatient hemodialysis. Monitor for renal recovery outpatient. Check phosphorus level. Check iron studies.
[2021-12-01 14:33] LABS: Phosphorus 5.6 mg/dL (2.5-4.5)
[2021-12-01 16:15] LABS: Glucose,Whole Blood 175 mg/dL (70-110)
[2021-12-01 20:33] LABS: Glucose,Whole Blood 224 mg/dL (70-110)
[2021-12-02 02:29] LABS: % Iron Saturation 35.5 (15.00-50.00)
[2021-12-02 03:36] VITALS: RESP 17
[2021-12-02 06:12] LABS: Glucose,Whole Blood 496 mg/dL (70-110)
[2021-12-02] MEDS: INSULIN ASPART (NovoLOG) 100 UNIT/ML VIAL SQ SCH ×2 (06:36→11:50)
--- NOTE | 2021-12-02 08:56 | P.PN ---
Subjective Principal diagnosis: Acute kidney injury This is a 51-year-old white male with known history of diabetes with nephropathy history of long-term incomplete bladder emptying and history of melanoma who is admitted essentially for acute on chronic kidney injury creatinine is 11. Appreciate multiple consultants. The patient is a symptomatically otherwise. Status post dialysis. Pain is nominal with [place] Creatinine is 8. Objective - Vital Signs Vital signs: Vital Signs Temp 98.2 F 12/02/21 08:32 Pulse 106 H 12/02/21 08:32 Resp 17 12/02/21 08:32 BP 165/82 12/02/21 08:32 Pulse Ox 98 12/02/21 08:32 FiO2 Intake & Output 12/01/21 12/02/21 12/02/21 18:59 06:59 18:59 Intake Total 1407 Output Total 3300 2800 1200 Balance -1893 -2800 -1200 Intake: Intake, IV Titration 450 Amount Sodium Chloride 0.9% 1, 450 000 ml @ 50 mls/hr IV . Q20H [facility] Rx#:[id number] Oral 957 Output: Urine 2800 2800 1200 Uretheral (Sanchez) 1400 1200 1200 Hemodialysis 500 Other: Voiding Method Indwelling Catheter Indwelling Catheter - Constitutional General appearance: Present: average body habitus - EENT Eyes: Absent: abnormal pupil - Neck Neck: Absent: lymphadenopathy - Respiratory Respiratory: bilateral: CTA - Cardiovascular Rhythm: regular Heart sounds: normal: S1, S2 Abnormal Heart Sounds: Present: S4 Gallop. Absent: S3 Gallop - Gastrointestinal General gastrointestinal: Present: soft. Absent: tenderness - Neurologic Neurologic: Present: CNII-XII intact - Labs CBC & Chem 7: 12/01/21 09:00 12/01/21 09:00 Labs: Abnormal Lab Results - Last 24 Hours (Table) 12/01/21 12/01/21 12/01/21 Range/Units 09:00 09:00 09:00 RBC 3.25 L (4.30-5.90) m/uL Hgb 9.5 L (13.0-17.5) gm/dL Hct 28.7 L (39.0-53.0) % Sodium 136 L (137-145) mmol/L BUN 60 H (9-20) mg/dL Creatinine 8.11 H* (0.66-1.25) mg/dL Glucose 126 H (74-99) mg/dL POC Glucose (mg/dL) (70-110) mg/dL Calcium 6.6 L (8.4-10.2) mg/dL Phosphorus 5.6 H (2.5-4.5) mg/dL TIBC 190 L (228-460) ug/dL Transferrin 136.0 L (204.0-354.0) mg/dL Ferritin 384.0 H (22.0-322.0) ng/mL AST 13 L (17-59) U/L Total Protein 4.8 L (6.3-8.2) g/dL Albumin 2.6 L (3.5-5.0) g/dL 12/01/21 12/01/21 12/02/21 Range/Units 16:14 20:10 06:07 RBC (4.30-5.90) m/uL Hgb (13.0-17.5) gm/dL Hct (39.0-53.0) % Sodium (137-145) mmol/L BUN (9-20) mg/dL Creatinine (0.66-1.25) mg/dL Glucose (74-99) mg/dL POC Glucose (mg/dL) 175 H 224 H 496 H (70-110) mg/dL Calcium (8.4-10.2) mg/dL Phosphorus (2.5-4.5) mg/dL TIBC (228-460) ug/dL Transferrin (204.0-354.0) mg/dL Ferritin (22.0-322.0) ng/mL AST (17-59) U/L Total Protein (6.3-8.2) g/dL Albumin (3.5-5.0) g/dL Assessment and Plan (1) Acute kidney injury Current Visit: Yes Status: Acute Code(s): N17.9 - ACUTE KIDNEY FAILURE, UNSPECIFIED SNOMED Code(s): 50194168 (2) Diabetes mellitus Current Visit: Yes Status: Acute Code(s): E11.9 - TYPE 2 DIABETES MELLITUS WITHOUT COMPLICATIONS SNOMED Code(s): 64900017 (3) History of melanoma Current Visit: No Status: Acute Code(s): Z85.820 - PERSONAL HISTORY OF MALIGNANT MELANOMA OF SKIN SNOMED Code(s): 294992355 (4) Urinary retention Current Visit: No Status: Acute Code(s): R33.9 - RETENTION OF URINE, UNSPECIFIED SNOMED Code(s): 224439191 Plan: Question element of obstructive uropathy. We'll check serial creatinine daily. Appreciate nephrology and urology input. Prognosis is guarded. Check CBC and CMP in a.m. History of poorly controlled diabetes and history of melanoma
[2021-12-02] MEDS ORDERED: INSULIN DETEMIR (LEVEMIR) 100 UNIT/ML SYR SQ SCH (09:00)
[2021-12-02 10:02] LABS: HCT 25.4 % (39.0-53.0); HGB 8.3 gm/dL (13.0-17.5); MCH 29.3 pg (25.0-35.0); MCHC 32.5 g/dL (31.0-37.0); Mean Platelet Volume 7.1; Platelet Count 231 k/uL (150-450); RBC 2.82 m/uL (4.30-5.90); RDW 13.3 % (11.5-15.5); WBC 7.5 k/uL (3.8-10.6)
--- NOTE | 2021-12-02 10:15 | P.PN ---
Subjective Patient is seen in follow-up for acute kidney injury. Started on hemodialysis 11/30/2021 due to no improvement in renal function. Has a Sanchez catheter. Nonoliguric. Oral intake fair. No vomiting or diarrhea today. Tolerating dialysis well. Vital signs are stable. General: Awake. No acute distress. HEENT: Head exam is unremarkable. HEART: Rate and Rhythm are regular. Lungs: Breath sounds decreased. ABDOMEN: Soft, no distention. EXTREMITITES: No edema. Objective - Vital Signs Vital signs: Vital Signs Temp 98.2 F 12/02/21 08:32 Pulse 106 H 12/02/21 08:32 Resp 17 12/02/21 08:32 BP 165/82 12/02/21 08:32 Pulse Ox 98 12/02/21 08:32 FiO2 Intake & Output 12/01/21 12/02/21 12/02/21 18:59 06:59 18:59 Intake Total 1407 Output Total 3300 2800 1200 Balance -1893 -2800 -1200 Intake: Intake, IV Titration 450 Amount Sodium Chloride 0.9% 1, 450 000 ml @ 50 mls/hr IV . Q20H [facility] Rx#:[id number] Oral 957 Output: Urine 2800 2800 1200 Uretheral (Sanchez) 1400 1200 1200 Hemodialysis 500 Other: Voiding Method Indwelling Catheter Indwelling Catheter - Labs CBC & Chem 7: 12/02/21 09:00 12/01/21 09:00 Labs: Abnormal Lab Results - Last 24 Hours (Table) 12/01/21 12/01/21 12/01/21 Range/Units 09:00 09:00 16:14 RBC (4.30-5.90) m/uL Hgb (13.0-17.5) gm/dL Hct (39.0-53.0) % Sodium 136 L (137-145) mmol/L BUN 60 H (9-20) mg/dL Creatinine 8.11 H* (0.66-1.25) mg/dL Glucose 126 H (74-99) mg/dL POC Glucose (mg/dL) 175 H (70-110) mg/dL Calcium 6.6 L (8.4-10.2) mg/dL Phosphorus 5.6 H (2.5-4.5) mg/dL TIBC 190 L (228-460) ug/dL Transferrin 136.0 L (204.0-354.0) mg/dL Ferritin 384.0 H (22.0-322.0) ng/mL AST 13 L (17-59) U/L Total Protein 4.8 L (6.3-8.2) g/dL Albumin 2.6 L (3.5-5.0) g/dL 12/01/21 12/02/21 12/02/21 Range/Units 20:10 06:07 09:00 RBC 2.82 L (4.30-5.90) m/uL Hgb 8.3 L (13.0-17.5) gm/dL Hct 25.4 L (39.0-53.0) % Sodium (137-145) mmol/L BUN (9-20) mg/dL Creatinine (0.66-1.25) mg/dL Glucose (74-99) mg/dL POC Glucose (mg/dL) 224 H 496 H (70-110) mg/dL Calcium (8.4-10.2) mg/dL Phosphorus (2.5-4.5) mg/dL TIBC (228-460) ug/dL Transferrin (204.0-354.0) mg/dL Ferritin (22.0-322.0) ng/mL AST (17-59) U/L Total Protein (6.3-8.2) g/dL Albumin (3.5-5.0) g/dL Assessment and Plan Plan: Assessment: 1. Acute kidney injury secondary to ATN from hypovolemia and obstructive uropathy. Started on hemodialysis 11/30/2021 due to no improvement in renal function. Nonoliguric. 2. Chronic kidney disease stage IV/5 with creatinine in the range of 2.88-5.88 from June 2020 to July 2021. Etiology is diabetic kidney disease. 3. Urinary retention with bilateral hydronephrosis noted on CAT scan. Has a Sanchez catheter. On Flomax. Urology following. 4. Hypertension with chronic kidney disease. Blood pressure high this morning but medications to dialysis. PRN hydralazine was added yesterday. 5. Hyperkalemia secondary to acute kidney injury, metabolic acidosis and hyperglycemia. Improved postdialysis. 6. Metabolic acidosis secondary to acute kidney injury. Improved postdialysis. 7. Diabetes mellitus. 8. Anemia of chronic kidney disease. Iron replete. 9. Hyperphosphatemia secondary to acute kidney injury. Plan: Maintain Sanchez catheter per urology recommendations. Currently seen while undergoing hemodialysis. Next hemodialysis on Tuesday. manager green to set up outpatient hemodialysis. Monitor for renal recovery outpatient. Add Aranesp. Add PhosLo with meals.
[2021-12-02 10:25] LABS: Albumin 2.4 g/dL (3.5-5.0); Calcium 6.5 mg/dL (8.4-10.2); Magnesium 1.7 mg/dL (1.6-2.3); Potassium 4.8 mmol/L (3.5-5.1); Total Bilirubin 0.1 mg/dL (0.2-1.3); Total Protein 4.4 g/dL (6.3-8.2)
[2021-12-02] MEDS ORDERED: DARBEPOETIN ALFA 40 MCG/0.4 ML SYRINGE SQ SCH (10:30)
[2021-12-02 11:41] LABS: Glucose,Whole Blood 159 mg/dL (70-110)
[2021-12-02 12:04] VITALS: PULSE 99; TEMP 97.9
[2021-12-02] MEDS ORDERED: CALCIUM ACETATE 667 MG TAB PO SCH (12:30)
[2021-12-02 13:09] VITALS: BP 151/62
== END 2021-12-02 12:54 | disposition left against medical advice (07) | DRG 683 ==
LOC: EC 00:10 → 3SCARD 01:45
PROVIDERS: ADMIT Family Medicine; ATTEND Family Medicine
PROC: B548ZZA Ultrasonography of Superior Vena Cava, Guidance (ICD-10-PCS; 2021-11-30)
PROC: 5A1D70Z Performance of Urinary Filtration, Intermittent, Less than 6 Hours Per Day (ICD-10-PCS; principal; 2021-11-30 16:28)
PROC: 02HV33Z Insertion of Infusion Device into Superior Vena Cava, Percutaneous Approach (ICD-10-PCS; 2021-11-30 16:28)
PROC: B5181ZA Fluoroscopy of Superior Vena Cava using Low Osmolar Contrast, Guidance (ICD-10-PCS; 2021-11-30 16:28)
DX: N17.0 Acute kidney failure with tubular necrosis (principal); E87.3 Alkalosis; E87.4 Mixed disorder of acid-base balance; E11.22 Type 2 diabetes mellitus with diabetic chronic kidney disease; R33.8 Other retention of urine; N13.30 Unspecified hydronephrosis; D63.1 Anemia in chronic kidney disease; Z53.29 Procedure and treatment not carried out because of patient's decision for other reasons; E11.649 Type 2 diabetes mellitus with hypoglycemia without coma; E11.65 Type 2 diabetes mellitus with hyperglycemia; E83.39 Other disorders of phosphorus metabolism; E83.52 Hypercalcemia; E86.0 Dehydration; E86.1 Hypovolemia; E87.5 Hyperkalemia; R00.0 Tachycardia, unspecified; N40.1 Benign prostatic hyperplasia with lower urinary tract symptoms; I12.9 Hypertensive chronic kidney disease with stage 1 through stage 4 chronic kidney disease, or unspecified chronic kidney disease; N18.4 Chronic kidney disease, stage 4 (severe); E11.21 Type 2 diabetes mellitus with diabetic nephropathy; E11.42 Type 2 diabetes mellitus with diabetic polyneuropathy; F17.210 Nicotine dependence, cigarettes, uncomplicated; N13.9 Obstructive and reflux uropathy, unspecified; T47.1X5A Adverse effect of other antacids and anti-gastric-secretion drugs, initial encounter; X58.XXXA Exposure to other specified factors, initial encounter; E86.9 Volume depletion, unspecified; I45.10 Unspecified right bundle-branch block; K21.9 Gastro-esophageal reflux disease without esophagitis; K52.9 Noninfective gastroenteritis and colitis, unspecified; N32.0 Bladder-neck obstruction; Z79.4 Long term (current) use of insulin; Z83.3 Family history of diabetes mellitus; Z85.820 Personal history of malignant melanoma of skin; Z99.2 Dependence on renal dialysis; Z87.440 Personal history of urinary (tract) infections
CPT/HCPCS: 36415; 36558; 71045; 74176; 76937; 77001; 80048; 80053; 80320; 82009; 82728; 82803; 83540; 83550; 83605; 83735; 84100; 84132; 84443; 84484; 85025; 85027; 86704; 86706; 87340; 90935; 93005; 94760; 96361; 96374; 96375; 99285

== ENCOUNTER 2021-12-08 02:40 | Inpatient (IN) | payer OTHER ==
--- NOTE | 2021-12-08 03:30 | ED ---
Abdominal Pain HPI - General Chief Complaint: Abdominal Pain Stated Complaint: Abdominal pain Time Seen by Provider: 12/08/21 02:42 Source: patient, EMS, RN notes reviewed Mode of arrival: EMS Limitations: no limitations - History of Present Illness Initial Comments: This is a 51-year-old male presents emergency stating that he has had decreased urination over the past few days. Patient states he was only able to dribble out a little bit of urine earlier tonight. Patient a recent admission for acute on chronic renal failure and oliguria. The the renal failure was exacerbated by obstructive uropathy. Patient was seen by nephrology and urology. Patient actually was on dialysis when he was here and had a Sanchez catheter. This was taken out prior to discharge. Patient has not made his follow-up appointments yet. Patient believes he is having urinary retention again. Denying any fever or chills. Denies hematuria. Is having dis comfort in the suprapubic area and to a lesser extent the lower flank area No headache, no fever or chills, no changes in vision or hearing, no sore throat or difficulty with speech, no neck pain, no chest pain or shortness of breath, PATIENT has had some vomiting episodes no changes in urination or bowel movements, no numbness or tingling, no extremity pain, no skin rashes or lesions . Past medical, surgical, social, and family history reviewed. - Related Data Home Medications Medication Instructions Recorded Confirmed Insulin Aspart [NovoLOG Flexpen] See Protocol SQ AC-TID 07/09/19 11/28/21 Insulin Degludec [Tresiba 70 units SQ HS 03/18/21 11/28/21 Flextouch U-200 Pen] hydrALAZINE HCL 50 mg PO HS 03/18/21 11/28/21 lisinopriL [Zestril] 40 mg PO HS 03/18/21 11/28/21 Lansoprazole 30 mg PO DAILY 04/07/21 11/28/21 Ondansetron [Zofran] 4 mg PO Q6H PRN 11/28/21 11/28/21 Allergies Allergy/AdvReac Type Severity Reaction Status Date / Time No Known Allergies Allergy Verified 11/28/21 11:22 Review of Systems ROS Statement: Those systems with pertinent positive or pertinent negative responses have been documented in the HPI. ROS Other: All systems not noted in ROS Statement are negative. Past Medical History Past Medical History: Diabetes Mellitus, GERD/Reflux, Renal Disease Additional Past Medical History / Comment(s): IDDM type II, diabetic neuropathy bilateral feet, DKA, renal insufficiency, hypercalemia, past perianal abscess/fistula with surgery, BPH/urinary retention with surgery, UTI. History of Any Multi-Drug Resistant Organisms: None Reported Past Surgical History: No Surgical Hx Reported Additional Past Surgical History / Comment(s): 08/2014 cystoscopy with TURP, rectal exam/I&D/fistulotomy. I&D back Past Anesthesia/Blood Transfusion Reactions: No Reported Reaction Past Psychological History: No Psychological Hx Reported Smoking Status: Current every day smoker Past Alcohol Use History: None Reported Past Drug Use History: None Reported - Past Family History Mother Family Medical History: Diabetes Mellitus Additional Family Medical History / Comment(s): mother is Father Family Medical History: No Reported History Additional Family Medical History / Comment(s): Father is healthy. General Exam - General Exam Comments Initial Comments: Patient does not appear to be ill or toxic. In mild distress. Limitations: no limitations General appearance: in distress Head exam: Present: atraumatic, normocephalic, normal inspection Eye exam: Present: normal appearance, PERRL, EOMI. Absent: scleral icterus, con junctival injection, periorbital swelling ENT exam: Present: normal exam, normal oropharynx, mucous membranes moist. Absent: normal external ear exam Neck exam: Present: normal inspection, full ROM. Absent: tenderness, meningismus, lymphadenopathy Respiratory exam: Present: normal lung sounds bilaterally. Absent: respiratory distress, wheezes, rales, rhonchi, stridor, chest wall tenderness, accessory muscle use Cardiovascular Exam: Present: regular rate, normal rhythm, normal heart sounds. Absent: systolic murmur, diastolic murmur, rubs, gallop, clicks GI/Abdominal exam: Present: soft, tenderness (Patient has tenderness to suprapubic area.), normal bowel sounds. Absent: distended, guarding, rebound, rigid Extremities exam: Present: normal inspection, full ROM, normal capillary refill. Absent: tenderness, pedal edema, joint swelling, calf tenderness Back exam: Present: normal inspection Neurological exam: Present: alert, oriented X3, CN II-XII intact Psychiatric exam: Present: normal affect, normal mood Skin exam: Present: warm, dry, intact, normal color. Absent: rash Course Vital Signs 12/08/21 02:52 Pulse Rate 108 H Respiratory 16 Rate Blood Pressure 190/98 O2 Sat by Pulse 98 Oximetry - Reevaluation(s) Reevaluation #1: 12/08/21 03:53 Medical record is reviewed Symptoms are improved here in the emergency department after Sanchez catheter Patient is informed of results and questions answered Patient in no distress Medical Decision Making - Medical Decision Making Patient presents to the emergency department for urinary retention and suprapubic discomfort. Likely obstructive uropathy. Sanchez catheter be placed. Renal function checked. We'll add on a magnesium and phosphorus as well. Patient will likely require admission. The case was discussed in detail with ED attending physician. Presentation, findings, treatment plan discussed in detail. Electronic Plotting System Operator Dr. Katz - Lab Data Result diagrams: 12/08/21 03:13 12/08/21 03:13 Lab Results 12/08/21 12/08/21 12/08/21 Range/Units 03:13 03:13 03:13 WBC 9.1 (3.8-10.6) k/uL RBC 3.69 L (4.30-5.90) m/uL Hgb 10.7 L (13.0-17.5) gm/dL Hct 31.5 L (39.0-53.0) % MCV 85.3 (80.0-100.0) fL MCH 29.1 (25.0-35.0) pg MCHC 34.1 (31.0-37.0) g/dL RDW 13.4 (11.5-15.5) % Plt Count 375 (150-450) k/uL MPV 8.1 Neutrophils % 79 % Lymphocytes % 12 % Monocytes % 5 % Eosinophils % 1 % Basophils % 1 % Neutrophils # 7.2 (1.3-7.7) k/uL Lymphocytes # 1.1 (1.0-4.8) k/uL Monocytes # 0.5 (0-1.0) k/uL Eosinophils # 0.1 (0-0.7) k/uL Basophils # 0.1 (0-0.2) k/uL Sodium 134 L (137-145) mmol/L Potassium 3.9 (3.5-5.1) mmol/L Chloride 95 L (98-107) mmol/L Carbon Dioxide 23 (22-30) mmol/L Anion Gap 16 mmol/L BUN 44 H (9-20) mg/dL Creatinine 7.09 H* (0.66-1.25) mg/dL Est GFR (CKD-EPI)AfAm 9 (>60 ml/min/1.73 sqM) Est GFR (CKD-EPI)NonAf 8 (>60 ml/min/1.73 sqM) Glucose 160 H (74-99) mg/dL Calcium 11.5 H (8.4-10.2) mg/dL Phosphorus 3.2 (2.5-4.5) mg/dL Magnesium 1.8 (1.6-2.3) mg/dL Total Bilirubin 0.7 (0.2-1.3) mg/dL AST 17 (17-59) U/L ALT 15 (4-49) U/L Alkaline Phosphatase 141 H (38-126) U/L Total Protein 5.7 L (6.3-8.2) g/dL Albumin 3.3 L (3.5-5.0) g/dL Urine Color Light Yellow Urine Appearance Clear (Clear) Urine pH 8.5 H (5.0-8.0) Ur Specific [place] 1.007 (1.001-1.035) Urine Protein 3+ H (Negative) Urine Glucose (UA) 1+ H (Negative) Urine Ketones Trace H (Negative) Urine Blood Negative (Negative) Urine Nitrite Negative (Negative) Urine Bilirubin Negative (Negative) Urine Urobilinogen <2.0 (<2.0) mg/dL Ur Leukocyte Esterase Negative (Negative) Urine RBC 1 (0-5) /hpf Urine WBC 7 H (0-5) /hpf Urine Bacteria Rare H (None) /hpf Hyaline Casts 1 (0-2) /lpf Disposition Clinical Impression: Urinary retention, Obstructive uropathy Disposition: ADMITTED IP TO THIS HOSP Condition: Stable Referrals: Cristi Mary MD [Primary Care Provider] - 1-2 days Time of Disposition: 03:53
[2021-12-08 03:35] LABS: Basophils # (A) 0.1 k/uL (0-0.2); Basophils % (A) 1 %; Eosinophils # (A) 0.1 k/uL (0-0.7); Eosinophils % (A) 1 %; HCT 31.5 % (39.0-53.0); HGB 10.7 gm/dL (13.0-17.5); Lymphocytes # (A) 1.1 k/uL (1.0-4.8); Lymphocytes % (A) 12 %; MCH 29.1 pg (25.0-35.0); MCHC 34.1 g/dL (31.0-37.0); MCV 85.3 fL (80.0-100.0); Mean Platelet Volume 8.1; Monocytes # (A) 0.5 k/uL (0-1.0); Monocytes % (A) 5 %; Neutrophils # (A) 7.2 k/uL (1.3-7.7); Neutrophils % (A) 79 %; Platelet Count 375 k/uL (150-450); RBC 3.69 m/uL (4.30-5.90); RDW 13.4 % (11.5-15.5); WBC 9.1 k/uL (3.8-10.6)
[2021-12-08 03:38] LABS: Albumin 3.3 g/dL (3.5-5.0); Appearance,Urine Clear (Clear); Bacteria,Urine Rare /hpf; Bilirubin,Urine Negative (Negative); Blood,Urine Negative (Negative); Calcium 11.5 mg/dL (8.4-10.2); Color,Urine Light Yellow; Glucose,Urine (UA) 1+ (Negative); Hyaline Casts,Urine 1 /lpf (0-2); Ketones,Urine Trace (Negative); Leukocyte Esterase,Urine Negative (Negative); Magnesium 1.8 mg/dL (1.6-2.3); Nitrite,Urine Negative (Negative); PH, Urine 8.5 (5.0-8.0); Phosphorus 3.2 mg/dL (2.5-4.5); Protein,Urine 3+ (Negative); RBC,Urine 1 /hpf (0-5); Specific Gravity,Urine 1.007 (1.001-1.035); Total Bilirubin 0.7 mg/dL (0.2-1.3); Total Protein 5.7 g/dL (6.3-8.2); Urobilinogen,Urine <2.0 mg/dL (<2.0); WBC,Urine 7 /hpf (0-5)
[2021-12-08] MEDS ORDERED: NALOXONE 0.4 MG/ML 1 ML VIAL IV PRN (03:47)
[2021-12-08] MEDS ORDERED: ACETAMINOPHEN TAB 325 MG TAB PO PRN (03:47)
[2021-12-08 03:50] LABS: Potassium 3.9 mmol/L (3.5-5.1)
[2021-12-08] MEDS: ONDANSETRON 4 MG/2 ML VIAL IVP PRN ×2 (05:09→12:54)
[2021-12-08 07:10] LABS: Glucose,Whole Blood 239 mg/dL (70-110)
--- NOTE | 2021-12-08 08:21 | P.HPIM ---
History of Present Illness H&P Date: 12/08/21 Chief Complaint: Suprapubic pain/Nausea This is a history of physical and a 51-year-old white male who has an underlying history diabetes nephropathy was complaining of severe nausea and suprapubic pain. He has elements of previous obstructive uropathy. He was placed on em ergent dialysis last week and then self discharged AGAINST MEDICAL ADVICE. The patient now returns for worsening symptoms. Underlying history of hypertension. Question compliance with dialysis. Appreciate multiple consultants input. Review of Systems All systems: negative Constitutional: Reports fatigue, Denies chills, Denies fever Eyes: denies blurred vision, denies pain Ears, nose, mouth and throat: Denies headache, Denies sore throat Cardiovascular: Denies chest pain, Denies shortness of breath Respiratory: Denies cough Gastrointestinal: Reports abdominal pain, Reports nausea, Reports vomiting Genitourinary: Reports as per HPI Musculoskeletal: Denies myalgias Integumentary: Denies pruritus, Denies rash Past Medical History Past Medical History: Diabetes Mellitus, GERD/Reflux, Renal Disease Additional Past Medical History / Comment(s): IDDM type II, diabetic neuropathy bilateral feet, DKA, renal insufficiency, hypercalemia, past perianal abscess/fistula with surgery, BPH/urinary retention with surgery, UTI. History of Any Multi-Drug Resistant Organisms: None Reported Past Surgical History: No Surgical Hx Reported Additional Past Surgical History / Comment(s): 08/2014 cystoscopy with TURP, rectal exam/I&D/fistulotomy. I&D back Past Anesthesia/Blood Transfusion Reactions: No Reported Reaction Past Psychological History: No Psychological Hx Reported Smoking Status: Current every day smoker Past Alcohol Use History: None Reported Past Drug Use History: None Reported - Past Family History Mother Family Medical History: Diabetes Mellitus Additional Family Medical History / Comment(s): mother is Father Family Medical History: No Reported History Additional Family Medical History / Comment(s): Father is healthy. Medications and Allergies Home Medications Medication Instructions Recorded Confirmed Type Insulin Aspart [NovoLOG Flexpen] See Protocol SQ AC-TID 07/09/19 12/08/21 History Insulin Degludec [Tresiba 70 units SQ HS 03/18/21 12/08/21 History Flextouch U-200 Pen] hydrALAZINE HCL 50 mg PO HS 03/18/21 12/08/21 History lisinopriL [Zestril] 40 mg PO HS 03/18/21 12/08/21 History Lansoprazole 30 mg PO DAILY 04/07/21 12/08/21 History Ondansetron [Zofran] 4 mg PO Q6H PRN 11/28/21 12/08/21 History Allergies Allergy/AdvReac Type Severity Reaction Status Date / Time No Known Allergies Allergy Verified 12/08/21 07:46 Physical Exam Vitals: Vital Signs Temp Pulse Pulse Resp BP BP Pulse Ox 12/08/21 05:20 98.6 F 86 20 178/91 96 12/08/21 04:01 90 181/88 12/08/21 02:52 108 H 16 190/98 98 Intake and Output 12/07/21 12/08/21 12/08/21 22:59 06:59 14:59 Output Total 1700 Balance -1700 Output: Urine 1700 Uretheral (Sanchez) 1700 Other: Weight 95.254 kg - Constitutional General appearance: no acute distress - EENT Eyes: EOMI - Neck Neck: no lymphadenopathy - Respiratory Respiratory: bilateral: CTA - Cardiovascular Rhythm: regular Heart sounds: normal: S1, S2 Abnormal Heart Sounds: no S3 Gallop - Gastrointestinal General gastrointestinal: soft, no tenderness - Integumentary Integumentary: no cellulitis Results CBC & Chem 7: 12/08/21 03:13 12/08/21 03:13 Labs: Abnormal Lab Results - Last 24 Hours (Table) 12/08/21 12/08/21 12/08/21 Range/Units 03:13 03:13 03:13 RBC 3.69 L (4.30-5.90) m/uL Hgb 10.7 L (13.0-17.5) gm/dL Hct 31.5 L (39.0-53.0) % Sodium 134 L (137-145) mmol/L Chloride 95 L (98-107) mmol/L BUN 44 H (9-20) mg/dL Creatinine 7.09 H* (0.66-1.25) mg/dL Glucose 160 H (74-99) mg/dL POC Glucose (mg/dL) (70-110) mg/dL Calcium 11.5 H (8.4-10.2) mg/dL Alkaline Phosphatase 141 H (38-126) U/L Total Protein 5.7 L (6.3-8.2) g/dL Albumin 3.3 L (3.5-5.0) g/dL Urine pH 8.5 H (5.0-8.0) Urine Protein 3+ H (Negative) Urine Glucose (UA) 1+ H (Negative) Urine Ketones Trace H (Negative) Urine WBC 7 H (0-5) /hpf Urine Bacteria Rare H (None) /hpf 12/08/21 Range/Units 07:03 RBC (4.30-5.90) m/uL Hgb (13.0-17.5) gm/dL Hct (39.0-53.0) % Sodium (137-145) mmol/L Chloride (98-107) mmol/L BUN (9-20) mg/dL Creatinine (0.66-1.25) mg/dL Glucose (74-99) mg/dL POC Glucose (mg/dL) 239 H (70-110) mg/dL Calcium (8.4-10.2) mg/dL Alkaline Phosphatase (38-126) U/L Total Protein (6.3-8.2) g/dL Albumin (3.5-5.0) g/dL Urine pH (5.0-8.0) Urine Protein (Negative) Urine Glucose (UA) (Negative) Urine Ketones (Negative) Urine WBC (0-5) /hpf Urine Bacteria (None) /hpf Assessment and Plan (1) Obstructive uropathy Current Visit: Yes Status: Acute Code(s): N13.9 - OBSTRUCTIVE AND REFLUX UROPATHY, UNSPECIFIED SNOMED Code(s): 1130242 (2) Urinary retention Current Visit: Yes Status: Acute Code(s): R33.9 - RETENTION OF URINE, UNSPECIFIED SNOMED Code(s): 484970702 (3) Acute kidney injury Current Visit: No Status: Acute Code(s): N17.9 - ACUTE KIDNEY FAILURE, UNSPECIFIED SNOMED Code(s): 96218856 (4) Acute renal failure Current Visit: No Status: Acute Code(s): N17.9 - ACUTE KIDNEY FAILURE, UNSPECIFIED SNOMED Code(s): 04989252 (5) Chronic kidney disease Current Visit: No Status: Acute Code(s): N18.9 - CHRONIC KIDNEY DISEASE, UNSPECIFIED SNOMED Code(s): 575958090 (6) Diabetes mellitus Current Visit: No Status: Acute Code(s): E11.9 - TYPE 2 DIABETES MELLITUS WITHOUT COMPLICATIONS SNOMED Code(s): 27037755 (7) Hypertensive urgency Current Visit: No Status: Acute Code(s): I16.0 - HYPERTENSIVE URGENCY SNOMED Code(s): 950204586 Plan: Sanchez catheter has been placed. Await dialysis. Increase hydralazine 50 mg twice a day. Check CBC and CMP in a.m. Reconcile medications as necessary. Clear liquids for now. Appreciate nephrology/urology input.
[2021-12-08] MEDS ORDERED: PROCHLORPERAZINE INJ 10 MG/2 ML VIAL IVP PRN (08:27)
[2021-12-08] MEDS: hydrALAZINE HCL 20 MG/ML 1 ML VIAL IVP SCH ×3 (08:49→17:31)
[2021-12-08 11:44] LABS: Glucose,Whole Blood 315 mg/dL (70-110)
[2021-12-08] MEDS: INSULIN ASPART (NovoLOG) 100 UNIT/ML VIAL SQ SCH ×3 (12:54→20:33)
--- NOTE | 2021-12-08 15:20 | P.GSCN ---
History of Present Illness Consult date: 12/08/21 Reason for Consult: Urinary retention Requesting physician: Cristi Mary History of present illness: The patient is a 51-year-old white male with a long history of incomplete bladder emptying. He was found in early 2014 to have left hydronephrosis and urinary retention. The hydronephrosis resolved with Sanchez catheter drainage. He underwent a TURP in August 2014. He was admitted earlier this month with abdominal pain, nausea, vomiting, and generalized weakness. CT scan showed bilateral hydronephrosis, left greater than right, and the bladder was distended up to the umbilicus. He was found to be in renal failure. He underwent Sanchez catheter drainage but ultimately underwent dialysis. He left the hospital AMA. The Sanchez catheter was removed prior to discharge. He is now readmitted with complaints of nausea and suprapubic abdominal pain. Review of Systems - Constitutional Reports weakness, Denies chills, Denies fever - Gastrointestinal Reports abdominal pain Past Medical History Past Medical History: Diabetes Mellitus, GERD/Reflux, Renal Disease Additional Past Medical History / Comment(s): IDDM type II, diabetic neuropathy bilateral feet, DKA, renal insufficiency, hypercalemia, past perianal abscess/fistula with surgery, BPH/urinary retention with surgery, UTI. History of Any Multi-Drug Resistant Organisms: None Reported Past Surgical History: No Surgical Hx Reported Additional Past Surgical History / Comment(s): 08/2014 cystoscopy with TURP, rectal exam/I&D/fistulotomy. I&D back Past Anesthesia/Blood Transfusion Reactions: No Reported Reaction Past Psychological History: No Psychological Hx Reported Smoking Status: Current every day smoker Past Alcohol Use History: None Reported Past Drug Use History: None Reported - Past Family History Mother Family Medical History: Diabetes Mellitus Additional Family Medical History / Comment(s): mother is Father Family Medical History: No Reported History Additional Family Medical History / Comment(s): Father is healthy. Medications and Allergies Home Medications Medication Instructions Recorded Confirmed Type Insulin Aspart [NovoLOG Flexpen] See Protocol SQ AC-TID 07/09/19 12/08/21 History Insulin Degludec [Tresiba 70 units SQ HS 03/18/21 12/08/21 History Flextouch U-200 Pen] hydrALAZINE HCL 50 mg PO HS 03/18/21 12/08/21 History lisinopriL [Zestril] 40 mg PO HS 03/18/21 12/08/21 History Lansoprazole 30 mg PO DAILY 04/07/21 12/08/21 History Ondansetron [Zofran] 4 mg PO Q6H PRN 11/28/21 12/08/21 History Allergies Allergy/AdvReac Type Severity Reaction Status Date / Time No Known Allergies Allergy Verified 12/08/21 07:46 Surgical - Exam Vital Signs Pulse Resp BP Pulse Ox 108 H 16 190/98 98 12/08/21 02:52 12/08/21 02:52 12/08/21 02:52 12/08/21 02:52 - General well developed, well nourished, no distress - Respiratory normal respiratory effort - Abdomen Abdomen: soft, non tender, no guarding, no rigid, no rebound - Genitourinary normal penis with no external lesions, testicles non-tender - Psychiatric oriented to time, oriented to person, oriented to place, speech is normal, memory intact Results - Labs 12/08/21 03:13 12/08/21 03:13 Abnormal Lab Results - Last 24 Hours (Table) 12/08/21 12/08/21 12/08/21 Range/Units 03:13 03:13 03:13 RBC 3.69 L (4.30-5.90) m/uL Hgb 10.7 L (13.0-17.5) gm/dL Hct 31.5 L (39.0-53.0) % Sodium 134 L (137-145) mmol/L Chloride 95 L (98-107) mmol/L BUN 44 H (9-20) mg/dL Creatinine 7.09 H* (0.66-1.25) mg/dL Glucose 160 H (74-99) mg/dL POC Glucose (mg/dL) (70-110) mg/dL Calcium 11.5 H (8.4-10.2) mg/dL Alkaline Phosphatase 141 H (38-126) U/L Total Protein 5.7 L (6.3-8.2) g/dL Albumin 3.3 L (3.5-5.0) g/dL Urine pH 8.5 H (5.0-8.0) Urine Protein 3+ H (Negative) Urine Glucose (UA) 1+ H (Negative) Urine Ketones Trace H (Negative) Urine WBC 7 H (0-5) /hpf Urine Bacteria Rare H (None) /hpf 12/08/21 12/08/21 Range/Units 07:03 11:41 RBC (4.30-5.90) m/uL Hgb (13.0-17.5) gm/dL Hct (39.0-53.0) % Sodium (137-145) mmol/L Chloride (98-107) mmol/L BUN (9-20) mg/dL Creatinine (0.66-1.25) mg/dL Glucose (74-99) mg/dL POC Glucose (mg/dL) 239 H 315 H (70-110) mg/dL Calcium (8.4-10.2) mg/dL Alkaline Phosphatase (38-126) U/L Total Protein (6.3-8.2) g/dL Albumin (3.5-5.0) g/dL Urine pH (5.0-8.0) Urine Protein (Negative) Urine Glucose (UA) (Negative) Urine Ketones (Negative) Urine WBC (0-5) /hpf Urine Bacteria (None) /hpf Diabetes panel 12/08/21 Range/Units 03:13 Sodium 134 L (137-145) mmol/L Potassium 3.9 (3.5-5.1) mmol/L Chloride 95 L (98-107) mmol/L Carbon Dioxide 23 (22-30) mmol/L BUN 44 H (9-20) mg/dL Creatinine 7.09 H* (0.66-1.25) mg/dL Glucose 160 H (74-99) mg/dL Calcium 11.5 H (8.4-10.2) mg/dL AST 17 (17-59) U/L ALT 15 (4-49) U/L Alkaline Phosphatase 141 H (38-126) U/L Total Protein 5.7 L (6.3-8.2) g/dL Albumin 3.3 L (3.5-5.0) g/dL Calcium panel 12/08/21 Range/Units 03:13 Calcium 11.5 H (8.4-10.2) mg/dL Phosphorus 3.2 (2.5-4.5) mg/dL Albumin 3.3 L (3.5-5.0) g/dL Pituitary panel 12/08/21 Range/Units 03:13 Sodium 134 L (137-145) mmol/L Potassium 3.9 (3.5-5.1) mmol/L Chloride 95 L (98-107) mmol/L Carbon Dioxide 23 (22-30) mmol/L BUN 44 H (9-20) mg/dL Creatinine 7.09 H* (0.66-1.25) mg/dL Glucose 160 H (74-99) mg/dL Calcium 11.5 H (8.4-10.2) mg/dL Adrenal panel 12/08/21 Range/Units 03:13 Sodium 134 L (137-145) mmol/L Potassium 3.9 (3.5-5.1) mmol/L Chloride 95 L (98-107) mmol/L Carbon Dioxide 23 (22-30) mmol/L BUN 44 H (9-20) mg/dL Creatinine 7.09 H* (0.66-1.25) mg/dL Glucose 160 H (74-99) mg/dL Calcium 11.5 H (8.4-10.2) mg/dL Total Bilirubin 0.7 (0.2-1.3) mg/dL AST 17 (17-59) U/L ALT 15 (4-49) U/L Alkaline Phosphatase 141 H (38-126) U/L Total Protein 5.7 L (6.3-8.2) g/dL Albumin 3.3 L (3.5-5.0) g/dL Assessment and Plan (1) Urinary retention Current Visit: Yes Status: Acute Code(s): R33.9 - RETENTION OF URINE, UNSPECIFIED SNOMED Code(s): 127737793 Plan: The patient's urinary retention appears to be chronic. I would suggest that the Sanchez catheter remain in place during the hospitalization. However, prior to discharge he can be reinstructed to perform intermittent self-catheterization. My office can assist him in ordering necessary supplies.
[2021-12-08 17:14] LABS: Glucose,Whole Blood 188 mg/dL (70-110)
[2021-12-08] MEDS: lisinopriL 20 MG TAB PO SCH (17:37)
--- NOTE | 2021-12-08 18:21 | CONS ---
CONSULTATION REASON FOR CONSULTATION: Acute kidney injury. HISTORY OF PRESENT ILLNESS: Patient is a 51-year-old male with history of chronic kidney disease and acute kidney injury, mostly obstructive uropathy, started on hemodialysis last admission. Patient is currently maintained on a Tuesday, , Tuesday schedule for dialysis. He was admitted to the hospital with complaints of abdominal discomfort and nausea. He states that his Sanchez catheter was removed and it appears to have been reinserted with good amount of urine noted in the Sanchez bag. Serum creatinine had been as high as 11.4 mg/dL on his last admission; currently staying at about 6 to 7 mg/dL. Patient has had good urine output but remains with poor clearance. He was seen by Urology during his last admission, and at this time no further intervention was planned. Patient was scheduled to see Urology as outpatient post discharge. PAST MEDICAL HISTORY: Recent acute kidney injury, starting hemodialysis last admission, mostly obstructive uropathy with bilateral hydronephrosis, type 2 diabetes, gastroesophageal reflux disease, neuropathy, history of hypercalcemia, history of perianal abscess and fistula, history of BPH, urine retention. PAST SURGICAL HISTORY: Cystoscopy with TURP, rectal exam, I and D, fistulotomy. SOCIAL HISTORY: Patient is a current smoker. No history of drug abuse. MEDICATIONS: Medications prior to admission included Zofran, lisinopril, lansoprazole, hydralazine, insulin. ALLERGIES: NONE. REVIEW OF SYSTEMS: As per HPI. Other systems negative. PHYSICAL EXAMINATION: Patient comfortable, awake, not in any acute distress. Alert, oriented x3. Blood pressure is 184/96, heart rate 90 per minute. He is afebrile. Examination of the heart: S1, S2. Examination of the lungs: Bilateral breath sounds are heard. Abdomen is soft, nontender. Examination of lower extremities shows no evidence of edema. RESIDENTIAL PEST CONTROL TECHNICIAN exam is grossly intact. LABS: Hemoglobin 10.7, sodium 134, potassium 3.9, BUN 44, serum creatinine 7.0. ASSESSMENT: 1. Acute kidney injury, currently hemodialysis-dependent. Patient is maintained on a Tuesday, , Tuesday schedule. He will be dialyzed today. Patient continues to have good urine output. However, his serum creatinine remains elevated. He may need further intervention by Urology. Previous creatinine was 4.[address] to February of 2021. 2. Hypercalcemia with a previous calcium low at 6.5. I am not sure if these labs are accurate. We will redraw them tomorrow. Currently not maintained on any calcium supplements. 3. Hypertension, uncontrolled. Will resume home dose of hydralazine and lisinopril. 4. Anemia, multifactorial. No active bleeding noted. PLAN: Hemodialysis today. Resume home blood pressure medications. Repeat labs in a.m. Continue with Sanchez catheter and continue to maintain patient on hemodialysis. Thank you for this consultation. Will continue to follow the patient with you during his hospitalization. MMODL / IJN: [id number] /
[2021-12-08 19:01] VITALS: RESP 16
[2021-12-08 20:02] LABS: Glucose,Whole Blood 217 mg/dL (70-110)
[2021-12-08] MEDS ORDERED: hydrALAZINE HCL 50 MG TAB PO SCH (21:00)
[2021-12-09] MEDS: hydrALAZINE HCL 20 MG/ML 1 ML VIAL IVP SCH ×3 (01:20→12:29)
[2021-12-09 07:06] LABS: Glucose,Whole Blood 357 mg/dL (70-110)
[2021-12-09] MEDS: INSULIN ASPART (NovoLOG) 100 UNIT/ML VIAL SQ SCH ×2 (08:41→12:28)
[2021-12-09] MEDS: lisinopriL 20 MG TAB PO SCH (08:42)
[2021-12-09 09:26] LABS: HCT 32.2 % (39.6-50.0); HGB 10.2 g/dL (13.0-17.0); MCH 27.9 pg (27.0-32.0); MCHC 31.7 g/dL (32.0-37.0); Mean Platelet Volume 10.1 fL (9.5-12.2); NRBC Per 100 WBC 0 /100 WBCS (0.0-0.0); Platelet Count 344 X 10*3/uL (140-440); RBC 3.66 X 10*6/uL (4.40-5.60); RDW 12.9 % (11.5-14.5); WBC 10.14 X 10*3/uL (4.50-10.00)
[2021-12-09 09:32] LABS: African American GFR (CKD) 12.4 (60.0-200.0); Albumin 3.4 g/dL (3.8-4.9); Albumin/Globulin Ratio 1.55 (1.60-3.17); Anion Gap 18.9 mmol/L (10.00-18.00); BUN/Creat Ratio 4.66 Ratio (12.00-20.00); Blood Urea Nitrogen 26.1 mg/dL (9.0-27.0); Calcium 9.3 mg/dL (8.7-10.3); Carbon Dioxide 23.1 mmol/L (20.0-27.5); Globulin 2.2 g/dL (1.6-3.3); Non-African American GFR(CKD) 10.7 (60.0-200.0); Potassium 4.2 mmol/L (3.5-5.5); Total Bilirubin 0.2 mg/dL (0.30-1.20); Total Protein 5.6 g/dL (6.2-8.2)
--- NOTE | 2021-12-09 11:37 | P.PN ---
Subjective Patient is seen for follow-up for acute kidney injury currently hemodialysis dependent. Etiology is obstructive uropathy. Patient has had good urine output however his serum creatinine remains elevated at around 67 mg/dL. He is currently maintained on a Tuesday schedule. Patient has been evaluated by urology. He is advised to continue with the Sanchez catheter and there is consideration for intermittent self-catheterization down the road. It is believed to be mostly chronic Patient will need to continue with the renal replacement therapy for now. Objective - Vital Signs Vital signs: Vital Signs Temp 98.2 F 12/09/21 05:00 Pulse 98 12/09/21 08:45 Resp 16 12/09/21 08:45 BP 169/81 12/09/21 05:00 Pulse Ox 97 12/09/21 05:00 FiO2 Intake & Output 12/08/21 12/09/21 12/09/21 18:59 06:59 18:59 Intake Total 120 400 Output Total 400 950 Balance -280 -550 Intake: Oral 120 Hemodialysis 400 Output: Urine 400 50 Hemodialysis 900 Other: Voiding Method Indwelling Catheter Indwelling Catheter Indwelling Catheter - Exam Awake, comfortable, not in any acute distress Alert oriented 3 Patient is euvolemic - Labs CBC & Chem 7: 12/09/21 05:49 12/09/21 05:49 Labs: Abnormal Lab Results - Last 24 Hours (Table) 12/08/21 12/08/21 12/08/21 Range/Units 11:41 17:11 20:00 WBC (4.50-10.00) X 10*3/uL RBC (4.40-5.60) X 10*6/uL Hgb (13.0-17.0) g/dL Hct (39.6-50.0) % MCHC (32.0-37.0) g/dL Chloride (96-109) mmol/L Anion Gap (10.00-18.00) mmol/L Creatinine (0.6-1.5) mg/dL Est GFR (CKD-EPI)AfAm (60.0-200.0) Est GFR (CKD-EPI)NonAf (60.0-200.0) BUN/Creatinine Ratio (12.00-20.00) Ratio Glucose (70-110) mg/dL POC Glucose (mg/dL) 315 H 188 H 217 H (70-110) mg/dL Total Bilirubin (0.30-1.20) mg/dL AST (14-35) U/L Alkaline Phosphatase (41-126) U/L Total Protein (6.2-8.2) g/dL Albumin (3.8-4.9) g/dL Albumin/Globulin Ratio (1.60-3.17) g/dL 12/09/21 12/09/21 12/09/21 Range/Units 05:49 05:49 07:02 WBC 10.14 H (4.50-10.00) X 10*3/uL RBC 3.66 L (4.40-5.60) X 10*6/uL Hgb 10.2 L (13.0-17.0) g/dL Hct 32.2 L (39.6-50.0) % MCHC 31.7 L (32.0-37.0) g/dL Chloride 95 L (96-109) mmol/L Anion Gap 18.90 H (10.00-18.00) mmol/L Creatinine 5.6 H (0.6-1.5) mg/dL Est GFR (CKD-EPI)AfAm 12.4 L (60.0-200.0) Est GFR (CKD-EPI)NonAf 10.7 L (60.0-200.0) BUN/Creatinine Ratio 4.66 L (12.00-20.00) Ratio Glucose 340 H (70-110) mg/dL POC Glucose (mg/dL) 357 H (70-110) mg/dL Total Bilirubin 0.20 L (0.30-1.20) mg/dL AST 11 L (14-35) U/L Alkaline Phosphatase 137 H (41-126) U/L Total Protein 5.6 L (6.2-8.2) g/dL Albumin 3.4 L (3.8-4.9) g/dL Albumin/Globulin Ratio 1.55 L (1.60-3.17) g/dL Assessment and Plan Assessment: 1. Acute kidney injury currently hemodialysis dependent mostly obstructive uropathy. Continue with hemodialysis as outpatient. Previous creatinine was 4.9-5 mg/dL all the way back to February 2021. Patient continues to have good urine output. We will continue to monitor for possible recovery of renal function as outpatient. Continue with Sanchez catheter for now 2. Hypertension uncontrolled. Home blood pressure medications have been resumed blood pressure is better now 3. Anemia of chronic disease 4. Chronic bilateral hydronephrosis with urine retention currently with indwelling Sanchez catheter. Patient needs follow-up as outpatient with urology. There is consideration for intermittent self-catheterization down the road. Plan: Hemodialysis in a.m. Patient can be discharged from nephrology standpoint He will continue with outpatient dialysis.
[2021-12-09 11:46] LABS: Glucose,Whole Blood 493 mg/dL (70-110)
[2021-12-09 13:58] LABS: Glucose,Whole Blood 500 mg/dL (70-110)
[2021-12-09 14:02] VITALS: BP 162/67; PULSE 100; TEMP 98.7
[2021-12-09] MEDS ORDERED: INSULIN ASPART (NovoLOG) 100 UNIT/ML VIAL SQ ONE (14:45)
--- NOTE | 2021-12-09 16:10 | P.DS ---
Providers Date of admission: 12/08/21 03:02 Attending physician: Cristi Mary Consults: 12/08/21 03:47 Consult Physician Urgent Consulting Provider: Robin Reyes Consult Reason/Comments: Obstructive uropathy Do you want consulting provider notified?: Yes, Notify in am Consult Physician Urgent Consulting Provider: Klarissa Williamson Consult Reason/Comments: Obstructive uropathy, renal failure Do you want consulting provider notified?: Yes, Notify in am Primary care physician: Cristi Mary - Discharge Diagnosis(es) (1) Obstructive uropathy Current Visit: Yes Status: Acute (2) Urinary retention Current Visit: Yes Status: Acute (3) Acute kidney injury Current Visit: No Status: Acute (4) Acute renal failure Current Visit: No Status: Acute (5) Chronic kidney disease Current Visit: No Status: Acute (6) Diabetes mellitus Current Visit: No Status: Acute (7) Hypertensive urgency Current Visit: No Status: Acute Hospital Course: The patient was admitted for obstructive uropathy acute on chronic renal failure. The patient had Sanchez catheter placed and start is stabilizing with dialysis. The patient has diabetic nephropathy requiring dialysis at this time we will leave Sanchez catheter at the suggestion of urology. He is tolerating diet his blood sugar is elevated but he was not started on his home insulin secondary to inability to eat. We'll restart diet and discharge in guarded condition to follow-up with me in about 3 days. Patient Condition at Discharge: Stable Plan - Discharge Summary New Discharge Prescriptions: New RX: Insulin Detemir (Levemir) [Levemir] 70 unit SQ HS each Continue RX: Insulin Aspart [NovoLOG Flexpen] See Protocol SQ AC-TID RX: lisinopriL [Zestril] 40 mg PO HS RX: hydrALAZINE HCL 50 mg PO HS RX: Insulin Degludec [Tresiba Flextouch U-200 Pen] 70 units SQ HS RX: Lansoprazole 30 mg PO DAILY RX: Ondansetron [Zofran] 4 mg PO Q6H PRN PRN Reason: Nausea Discharge Medication List RX: Insulin Aspart [NovoLOG Flexpen] See Protocol SQ AC-TID 07/09/19 [History] RX: Insulin Degludec [Tresiba Flextouch U-200 Pen] 70 units SQ HS 03/18/21 [History] RX: hydrALAZINE HCL 50 mg PO HS 03/18/21 [History] RX: lisinopriL [Zestril] 40 mg PO HS 03/18/21 [History] RX: Lansoprazole 30 mg PO DAILY 04/07/21 [History] RX: Ondansetron [Zofran] 4 mg PO Q6H PRN 11/28/21 [History] RX: Insulin Detemir (Levemir) [Levemir] 70 unit SQ HS each 12/09/21 [Rx] Follow up Appointment(s)/Referral(s): [facility] [NON-STAFF] - As Needed (CHAIR TIME: [id number] at 0720 AM) Cristi Mary MD [Primary Care Provider] - 3 Days Discharge Disposition: HOME SELF-CARE
[2021-12-09 16:41] LABS: Glucose,Whole Blood 355 mg/dL (70-110)
[2021-12-09] MEDS ORDERED: INSULIN DEGLUDEC 200 UNIT/ML SQ SCH (21:00)
[2021-12-09] MEDS ORDERED: INSULIN DETEMIR (LEVEMIR) 100 UNIT/ML SYR SQ SCH (21:00)
--- NOTE | 2021-12-10 23:50 | CDI ---
Documentation Clarification Form Date: 12/10/2021 11:32:05 PM From: Key Mazariegos Phone: Admit Date: 12/08/2021 03:02:00 AM Patient Name: Wilson Seymour Visit Number: [id number] Discharge Date: 12/09/2021 05:22:00 PM ATTENTION: The Clinical Documentation Specialists [facility] and [facility] Coding Staff appreciate your assistance in clarifying documentation. Please respond to the clarification below the line at the bottom and electronically sign. The [facility] & [facility] Coding staff will review the response and follow-up if needed. Please note: Queries are made part of the Legal Health Record. If you have any questions, please contact the author of this message via ITS. Dr. Cristi Mary Unspecified CKD is documented ED. Additional clarification regarding the stage of CKD is requested. History/Risk Factors: 51 YO m, 1Obstructive uropathy; Urinary retention BPH; QUIQUE on CKD, DMII, HTN w urgency, anemia of CKD, Chronicbilateral hydronephrosis Clinical Indicators: Comprehensive Metabolic Panel 12/08/2021 03:13 12/09/2021 05:49 GFR (CKD) 9 12.4L Blood Urea Nitrogen (mg/dL) 44H 26.1 BUN/Creat Ratio (Ratio) 4.66L Non- GFR(CKD) 8 10.7L Previous creatinine was 4.9-5 mg/dL all the way back to February 2021. Patient continues to have good urine output. We will continue to monitor for possible recovery of renal function as OP . Continue withFoley for now Treatment: QUIQUE currentlyHD dependentmostlyobstructive uropathy. Continue withHDas OP . Previous creatinine was 4.9-5 mg/dL all the way back to February 2021.Patient continues to have good urine output. We will continue to monitor for possible recovery of renal function as OP . Continue withFoley for now Consults: The patient'surinary retentionappears to be chronic. I would suggest that the Sanchez remain inplaceduring the hospitalization. However, prior to discharge he can be reinstructed to perform intermittent self-cath. Please clarify the stage of the CKD, if known: [ ] CKD Stage 1 GFR > 90 [ ] CKD Stage 2 GFR 60-89 [ ] CKD Stage 3 GFR 30-59 [ ] CKD Stage 3a GFR 45-59 [ ] CKD Stage 3b GFR 30-44 [ ] CKD Stage 4 GFR 15-29 [ x ] CKD Stage 5 GFR <15 [ ] ESRD [ ] Other, please specify [ ] Unable to determine Template last revised: June 2020 MTDD
== END 2021-12-09 17:22 | disposition home or self-care (01) | DRG 699 ==
LOC: EC 02:40 → 5NMEDONC 03:02
PROVIDERS: ADMIT Family Medicine; ATTEND Family Medicine
DX: N13.9 Obstructive and reflux uropathy, unspecified (principal); I12.0 Hypertensive chronic kidney disease with stage 5 chronic kidney disease or end stage renal disease; N17.9 Acute kidney failure, unspecified; N18.5 Chronic kidney disease, stage 5; E11.22 Type 2 diabetes mellitus with diabetic chronic kidney disease; E11.42 Type 2 diabetes mellitus with diabetic polyneuropathy; D63.1 Anemia in chronic kidney disease; F17.210 Nicotine dependence, cigarettes, uncomplicated; N40.1 Benign prostatic hyperplasia with lower urinary tract symptoms; R33.8 Other retention of urine; I16.0 Hypertensive urgency; E83.52 Hypercalcemia; Z79.4 Long term (current) use of insulin; Z79.899 Other long term (current) drug therapy; Z87.440 Personal history of urinary (tract) infections; Z98.890 Other specified postprocedural states; Z83.3 Family history of diabetes mellitus; Z99.2 Dependence on renal dialysis
CPT/HCPCS: 36415; 51702; 80053; 81001; 83735; 84100; 85025; 85027; 90935; 99285

== ENCOUNTER 2022-01-24 18:33 | Emergency (ER) | payer OTHER ==
--- NOTE | 2022-01-24 20:41 | ED ---
General Adult HPI - General Chief complaint: Nausea/Vomiting/Diarrhea Stated complaint: nausea, vomiting Time Seen by Provider: 01/24/22 20:38 Source: patient Mode of arrival: ambulatory Limitations: no limitations - History of Present Illness Initial comments: Patient presents to the ED complaining of having nausea and vomiting since about 11 PM last night. Patient states that he has a history of recurrent nausea and vomiting for which he is prescribed prochlorperazine. Patient admits to having mild generalized abdominal pain as well. Patient states that he is a dialysis patient, and he states that he did go to his normally scheduled dialysis session yesterday. Patient states that he does make urine still, and he states that he catheterizes himself every 6 hours. Patient states that he has had normal bowel movements. Patient denies fever or chills, headache, focal neuro deficit, chest pain or pressure, dyspnea, cough or cold symptoms, palpitations, dizziness, diarrhea or constipation, bloody or melanotic stool, hematemesis, decreased urine output, or any other symptoms or complaints. Patient denies alcohol or illicit drug use. - Related Data Home Medications Medication Instructions Recorded Confirmed Insulin Aspart [NovoLOG Flexpen] See Protocol SQ AC-TID 07/09/19 12/08/21 Insulin Degludec [Tresiba 70 units SQ HS 03/18/21 12/08/21 Flextouch U-200 Pen] hydrALAZINE HCL 50 mg PO HS 03/18/21 12/08/21 lisinopriL [Zestril] 40 mg PO HS 03/18/21 12/08/21 Lansoprazole 30 mg PO DAILY 04/07/21 12/08/21 Ondansetron [Zofran] 4 mg PO Q6H PRN 11/28/21 12/08/21 Previous Rx's Medication Instructions Recorded Insulin Detemir (Levemir) [Levemir] 70 unit SQ HS each 12/09/21 Allergies Allergy/AdvReac Type Severity Reaction Status Date / Time No Known Allergies Allergy Verified 01/24/22 19:30 Review of Systems ROS Statement: Those systems with pertinent positive or pertinent negative responses have been documented in the HPI. ROS Other: All systems not noted in ROS Statement are negative. Past Medical History Past Medical History: Diabetes Mellitus, GERD/Reflux, Renal Disease Additional Past Medical History / Comment(s): IDDM type II, diabetic neuropathy bilateral feet, DKA, renal insufficiency, hypercalemia, past perianal abscess/fistula with surgery, BPH/urinary retention with surgery, UTI. self cath four times a day, dialysis Tues/thur/sat History of Any Multi-Drug Resistant Organisms: None Reported Past Surgical History: No Surgical Hx Reported Additional Past Surgical History / Comment(s): 08/2014 cystoscopy with TURP, rectal exam/I&D/fistulotomy. I&D back Past Anesthesia/Blood Transfusion Reactions: No Reported Reaction Past Psychological History: No Psychological Hx Reported Smoking Status: Current every day smoker Past Alcohol Use History: None Reported Past Drug Use History: None Reported - Past Family History Mother Family Medical History: Diabetes Mellitus Additional Family Medical History / Comment(s): mother is Father Family Medical History: No Reported History Additional Family Medical History / Comment(s): Father is healthy. General Exam Limitations: no limitations General appearance: alert, in no apparent distress Head exam: Present: atraumatic, normocephalic Eye exam: Present: normal appearance, PERRL, EOMI ENT exam: Present: mucous membranes moist Neck exam: Present: other (Trachea is in midline) Respiratory exam: Present: normal lung sounds bilaterally. Absent: respiratory distress, wheezes, rales, rhonchi, stridor Cardiovascular Exam: Present: regular rate, normal rhythm, normal heart sounds, other (Normal radial pulses bilaterally) GI/Abdominal exam: Present: soft, normal bowel sounds, other (Mild generalized abdominal tenderness). Absent: distended, guarding, rebound Extremities exam: Absent: tenderness, pedal edema Back exam: Absent: CVA tenderness (R), CVA tenderness (L) Neurological exam: Present: alert, oriented X3. Absent: motor sensory deficit Psychiatric exam: Present: normal affect, normal mood Skin exam: Present: warm, dry, intact, normal color Course Vital Signs 01/24/22 01/24/22 19:30 22:34 Temperature 98.5 F 98.3 F Pulse Rate 88 77 Respiratory 18 22 Rate Blood Pressure 121/77 127/74 O2 Sat by Pulse 100 97 Oximetry - Reevaluation(s) Reevaluation #1: 01/24/22 23:06 Patient states that his nausea has now improved, and he denies development of any new symptoms while in the ED. Patient's abdomen remains soft and without any surgical signs on examination. Patient has not had any vomiting while in the ED. Patient is aware of his test results, and he feels comfortable being d ischarged home at this time. Patient was counseled about vomiting and hyperglycemia, and he was clearly explained return and follow-up instructions. Patient was instructed to follow up closely with his primary care provider. Patient feels comfortable with this plan. Medical Decision Making - Medical Decision Making I suspect that the patient's bladder/renal collecting system findings on CT are likely chronic. Patient has no evidence of UTI by UA. Patient's CT abdomen/pelvis is otherwise fairly unremarkable. Patient is afebrile and with out leukocytosis. Patient is hyperglycemic, but not acidotic or ketotic. Patient has not any vomiting while in the ED. Patient states that he has had recurrent nausea and vomiting in the past, which has improved with IV Zofran treatment. I do not suspect an emergent medical or surgical condition at this time. Patient is aware of his test results, and he feels comfortable being discharged home at this time. Patient was instructed to follow up closely with his primary care provider. Patient feels comfortable with this plan. - Lab Data Result diagrams: 01/24/22 20:48 01/24/22 20:48 Lab Results 01/24/22 01/24/22 01/24/22 Range/Units 20:48 20:48 22:35 WBC 8.8 (3.8-10.6) k/uL RBC 3.91 L (4.30-5.90) m/uL Hgb 11.2 L (13.0-17.5) gm/dL Hct 34.6 L (39.0-53.0) % MCV 88.7 (80.0-100.0) fL MCH 28.7 (25.0-35.0) pg MCHC 32.4 (31.0-37.0) g/dL RDW 13.4 (11.5-15.5) % Plt Count 347 (150-450) k/uL MPV 7.5 Neutrophils % 73 % Lymphocytes % 17 % Monocytes % 7 % Eosinophils % 2 % Basophils % 1 % Neutrophils # 6.4 (1.3-7.7) k/uL Lymphocytes # 1.5 (1.0-4.8) k/uL Monocytes # 0.6 (0-1.0) k/uL Eosinophils # 0.1 (0-0.7) k/uL Basophils # 0.1 (0-0.2) k/uL Sodium 132 L (137-145) mmol/L Potassium 4.1 (3.5-5.1) mmol/L Chloride 92 L (98-107) mmol/L Carbon Dioxide 26 (22-30) mmol/L Anion Gap 14 mmol/L BUN 30 H (9-20) mg/dL Creatinine 6.17 H (0.66-1.25) mg/dL Est GFR (CKD-EPI)AfAm 11 (>60 ml/min/1.73 sqM) Est GFR (CKD-EPI)NonAf 10 (>60 ml/min/1.73 sqM) Glucose 329 H (74-99) mg/dL Calcium 9.8 (8.4-10.2) mg/dL Magnesium 2.0 (1.6-2.3) mg/dL Total Bilirubin 0.4 (0.2-1.3) mg/dL AST 13 L (17-59) U/L ALT 10 (4-49) U/L Alkaline Phosphatase 155 H (38-126) U/L Total Protein 6.2 L (6.3-8.2) g/dL Albumin 3.9 (3.5-5.0) g/dL Lipase 43 (23-300) U/L Urine Color Light Yellow Urine Appearance Clear (Clear) Urine pH 8.5 H (5.0-8.0) Ur Specific [place] 1.007 (1.001-1.035) Urine Protein 4+ H (Negative) Urine Glucose (UA) 3+ H (Negative) Urine Ketones Negative (Negative) Urine Blood Negative (Negative) Urine Nitrite Negative (Negative) Urine Bilirubin Negative (Negative) Urine Urobilinogen <2.0 (<2.0) mg/dL Ur Leukocyte Esterase Negative (Negative) Urine RBC 2 (0-5) /hpf Urine WBC 13 H (0-5) /hpf Urine Mucus Rare H (None) /hpf Urine Opiates Screen Not Detected (NotDetected) Ur Oxycodone Screen Not Detected (NotDetected) Urine Methadone Screen Not Detected (NotDetected) Ur Propoxyphene Screen Not Detected (NotDetected) Ur Barbiturates Screen Not Detected (NotDetected) U Tricyclic Antidepress Not Detected (NotDetected) Ur Phencyclidine Scrn Not Detected (NotDetected) Ur Amphetamines Screen Not Detected (NotDetected) U Methamphetamines Scrn Not Detected (NotDetected) U Benzodiazepines Scrn Not Detected (NotDetected) Urine Cocaine Screen Not Detected (NotDetected) U Marijuana (THC) Screen Not Detected (NotDetected) - Radiology Data Noncontrast CT abdomen/pelvis: Urinary bladder wall thickening suggestive of some nonspecific cystitis. There is fullness of the upper collecting systems that is improved compared to old exam with clearing of the dilated urinary bladder compared to old exam. No bowel obstruction. Disposition Clinical Impression: Nausea and vomiting, Chronic renal failure, Hyperglycemia Disposition: HOME SELF-CARE Condition: Stable Instructions (If sedation given, give patient instructions): Acute Nausea and Vomiting (ED), Diabetic Hyperglycemia (ED), Chronic Kidney Disease (ED) Additional Instructions: Return to the ER immediately should you develop increased or persistent vomiting, new or worsening pain, a fever, shortness of breath, feeling dizzy or faint, or new or worsening symptoms. Follow up closely with your primary care provider. Is patient prescribed a controlled substance at d/c from ED?: No Referrals: Cristi Mary MD [Primary Care Provider] - 1-2 days Time of Disposition: 23:12
[2022-01-24] MEDS ORDERED: ONDANSETRON 4 MG/2 ML VIAL IVP STA (20:44)
[2022-01-24 20:56] LABS: Basophils # (A) 0.1 k/uL (0-0.2); Basophils % (A) 1 %; Eosinophils # (A) 0.1 k/uL (0-0.7); Eosinophils % (A) 2 %; HCT 34.6 % (39.0-53.0); HGB 11.2 gm/dL (13.0-17.5); Lymphocytes # (A) 1.5 k/uL (1.0-4.8); Lymphocytes % (A) 17 %; MCH 28.7 pg (25.0-35.0); MCHC 32.4 g/dL (31.0-37.0); MCV 88.7 fL (80.0-100.0); Mean Platelet Volume 7.5; Monocytes # (A) 0.6 k/uL (0-1.0); Monocytes % (A) 7 %; Neutrophils # (A) 6.4 k/uL (1.3-7.7); Neutrophils % (A) 73 %; Platelet Count 347 k/uL (150-450); RBC 3.91 m/uL (4.30-5.90); RDW 13.4 % (11.5-15.5); WBC 8.8 k/uL (3.8-10.6)
[2022-01-24 21:08] LABS: Albumin 3.9 g/dL (3.5-5.0); Calcium 9.8 mg/dL (8.4-10.2); Potassium 4.1 mmol/L (3.5-5.1); Total Bilirubin 0.4 mg/dL (0.2-1.3); Total Protein 6.2 g/dL (6.3-8.2)
--- NOTE | 2022-01-24 21:12 | CT ---
EXAMINATION TYPE: CT abdomen pelvis wo con DATE OF EXAM: 01/24/2022 COMPARISON: 11/28/2021 HISTORY: abdominal pain and vomiting CT DLP: 589.9 mGycm Automated exposure control for dose reduction was used. Lung bases are clear of consolidation. No pleural effusion. Heart size is normal. No pericardial effu ailyn. Liver spleen stomach pancreas and gallbladder appear intact. The bowel are not dilated. There is no adrenal mass. Kidneys of normal size. There is some mild fullness of the left and right r enal pelvis. Ureters are not dilated. Abdominal aorta is atheromatous. No retroperitoneal adenopathy. No inguinal hernia. There are bilateral inguinal lymph nodes up to 1.5 cm. No free fluid in the pelv is. There is mild uniform bladder wall thickening. Appendix is medial and appears normal. There is no ascites or free air. No bowel obstruction. Lumbar vertebrae are normal alignment. No compression fracture. Bony pelvis is intact. The hip joints are intact. Abdominal aorta is atheromatous. Sacroiliac joints are intact. IMPRESSION: Urinary bladder wall thickening suggestive of some nonspecific cystitis. There is fullness of the upp er collecting systems that is improved compared to old exam with clearing of the dilated urinary blad matthew compared to old exam. No bowel obstruction.
[2022-01-24] MEDS ORDERED: INSULIN REGULAR 100 UNIT/ML VIAL (IM/SQ) SQ STA (21:40)
[2022-01-24] MEDS ORDERED: SODIUM CHLORIDE 0.9% 250 ML IV SCH (21:45)
[2022-01-24 22:48] LABS: Appearance,Urine Clear (Clear); Bilirubin,Urine Negative (Negative); Blood,Urine Negative (Negative); Color,Urine Light Yellow; Glucose,Urine (UA) 3+ (Negative); Ketones,Urine Negative (Negative); Leukocyte Esterase,Urine Negative (Negative); Mucus,Urine Rare /hpf; Nitrite,Urine Negative (Negative); PH, Urine 8.5 (5.0-8.0); Protein,Urine 4+ (Negative); RBC,Urine 2 /hpf (0-5); Specific Gravity,Urine 1.007 (1.001-1.035); Urobilinogen,Urine <2.0 mg/dL (<2.0); WBC,Urine 13 /hpf (0-5)
[2022-01-24 22:58] LABS: Amphetamine Screen,Urine Not Detected (NotDetected); Barbiturate Screen,Urine Not Detected (NotDetected); Benzodiazepines Screen,Urine Not Detected (NotDetected); Cocaine Screen,Urine Not Detected (NotDetected); Methadone Screen, Urine Not Detected (NotDetected); Opiate Screen,Urine Not Detected (NotDetected); Oxycodone Screen, Urine Not Detected (NotDetected); Phencyclidine Screen,Urine Not Detected (NotDetected); Tricyclic Antidepressant,Urine Not Detected (NotDetected); Urn Cannabinoid Scrn Not Detected (NotDetected)
[2022-01-24 23:36] VITALS: BP 121/70; PULSE 70; RESP 18; TEMP 98
== END 2022-01-24 23:37 | disposition home or self-care (01) ==
LOC: EC 18:33
DX: E11.22 Type 2 diabetes mellitus with diabetic chronic kidney disease (principal); E11.65 Type 2 diabetes mellitus with hyperglycemia; N18.9 Chronic kidney disease, unspecified; E11.40 Type 2 diabetes mellitus with diabetic neuropathy, unspecified; F17.200 Nicotine dependence, unspecified, uncomplicated; Z99.2 Dependence on renal dialysis; K21.9 Gastro-esophageal reflux disease without esophagitis; Z79.899 Other long term (current) drug therapy; Z79.4 Long term (current) use of insulin
CPT/HCPCS: 36415; 80053; 83690; 83735; 85025; 81001; 80306; 87086; 74176; 99284; 96374; 96361; J2405

== ENCOUNTER 2022-01-26 07:38 | Inpatient (IN) | payer OTHER ==
[2022-01-26 07:50] LABS: Glucose,Whole Blood 483 mg/dL (70-110)
[2022-01-26] MEDS ORDERED: SODIUM CHLORIDE 0.9% 1,000 ML IV STA (07:58)
[2022-01-26] MEDS ORDERED: ONDANSETRON 4 MG/2 ML VIAL IVP STA (07:58)
[2022-01-26 08:58] LABS: INR 0.9 (<1.2); Partial Thromboplastin Time 22.4 sec (22.0-30.0); Prothrombin Time 10.3 sec (9.0-12.0)
[2022-01-26 09:00] LABS: Basophils # (A) 0.1 k/uL (0-0.2); Basophils % (A) 1 %; Eosinophils # (A) 0.1 k/uL (0-0.7); Eosinophils % (A) 0 %; HCT 42.9 % (39.0-53.0); HGB 13.7 gm/dL (13.0-17.5); Lymphocytes # (A) 0.7 k/uL (1.0-4.8); Lymphocytes % (A) 5 %; MCH 28.8 pg (25.0-35.0); MCHC 31.9 g/dL (31.0-37.0); MCV 90.2 fL (80.0-100.0); Mean Platelet Volume 8.1; Monocytes # (A) 0.6 k/uL (0-1.0); Monocytes % (A) 4 %; Neutrophils # (A) 12.1 k/uL (1.3-7.7); Neutrophils % (A) 89 %; Platelet Count 477 k/uL (150-450); RBC 4.75 m/uL (4.30-5.90); WBC 13.6 k/uL (3.8-10.6)
[2022-01-26 09:03] LABS: ALT 13 U/L (4-49); AST 18 U/L (17-59); African American GFR (CKD) 7 (>60 ml/min/1.73 sqM); Albumin 4.8 g/dL (3.5-5.0); Alkaline Phosphatase 228 U/L (38-126); Anion Gap 25 mmol/L; Blood Urea Nitrogen 43 mg/dL (9-20); Calcium 11.4 mg/dL (8.4-10.2); Carbon Dioxide 20 mmol/L (22-30); Chloride 89 mmol/L (98-107); Magnesium 2.1 mg/dL (1.6-2.3); Non-African American GFR(CKD) 6 (>60 ml/min/1.73 sqM); Potassium 4.6 mmol/L (3.5-5.1); Sodium 134 mmol/L (137-145); Total Protein 7.4 g/dL (6.3-8.2)
--- NOTE | 2022-01-26 09:06 | XR ---
EXAMINATION TYPE: XR chest 2V DATE OF EXAM: 01/26/2022 COMPARISON: 12/01/2021 HISTORY: Shortness of breath TECHNIQUE: Frontal and lateral views of the chest are obtained. FINDINGS: Scattered senescent parenchymal changes noted. No evidence for infiltrate. No evidence for atelectasis. Heart size is stable. Mediastinal structures are stable and grossly unremarkable. No evidence for hilar prominence. Degenerative changes dorsal spine. IMPRESSION: 1. No evidence for acute pulmonary disease.
[2022-01-26 09:13] LABS: Glucose 553 mg/dL (74-99)
[2022-01-26] MEDS ORDERED: Magnesium Replacement Protocol 1 EACH MISC MISCELLANE PRN (09:51)
[2022-01-26] MEDS ORDERED: Potassium Replacement Protocol 1 EACH MISC MISCELLANE PRN (09:51)
[2022-01-26] MEDS ORDERED: INSULIN REGULAR 100 UNIT in SODIUM CHLORIDE 0.9% 100 ML IV SCH (10:00)
--- NOTE | 2022-01-26 10:25 | ED ---
General Adult HPI - General Chief complaint: Recheck/Abnormal Lab/Rx Stated complaint: diabetic issues Time Seen by Provider: 01/26/22 07:41 Source: EMS Mode of arrival: EMS Limitations: no limitations - History of Present Illness Initial comments: 51-year-old male with past history of poorly controlled diabetes, end-stage renal disease on hemodialysis Tuesday, and Tuesday, diabetic neuropathy, urinary retention with self cath every 6 hours who presents to the emergency department with nausea vomiting. EMS were called to his hotel for a p atient with hyperglycemia. He was extremely uncooperative with EMS and would not provide a history. He was seen in our emergency department on the for similar complaint and was discharged home as he was not acidotic. Patient arrives today stating that he has had nausea, vomiting and diarrhea. He is unsure of his last dialysis session however it was documented in previous notes that it was on Tuesday. He cannot tell me when he took his last insulin. He is unsure of who his surgical elastic knitter is. Due to the patient being a poor historian the HPI is limited - Related Data Home Medications Medication Instructions Recorded Confirmed Insulin Aspart [NovoLOG Flexpen] See Protocol SQ AC-TID 07/09/19 02/03/22 Insulin Degludec [Tresiba 70 units SQ HS 03/18/21 02/03/22 Flextouch U-200 Pen] lisinopriL [Zestril] 40 mg PO HS 03/18/21 02/03/22 Lansoprazole 30 mg PO DAILY 04/07/21 02/03/22 Ondansetron [Zofran] 4 mg PO Q6H PRN 11/28/21 02/03/22 Hyoscyamine Sulfate [Levbid] 0.375 mg PO Q12HR PRN 01/26/22 02/03/22 Prochlorperazine [Compazine] 10 mg PO TID 01/26/22 02/03/22 hydrALAZINE HCL [Apresoline] 100 mg PO TID 01/26/22 02/03/22 Ergocalciferol [Vitamin D2 (1250 1,250 mcg PO WEEKLY 02/01/22 02/03/22 Mcg = 63608 Iu)] Sertraline HCl [Zoloft] 25 mg PO DAILY 02/01/22 02/03/22 carvediloL [Coreg] 6.25 mg PO BID 02/01/22 02/03/22 Allergies Allergy/AdvReac Type Severity Reaction Status Date / Time No Known Allergies Allergy Verified 02/03/22 12:46 Review of Systems ROS Statement: Those systems with pertinent positive or pertinent negative responses have been documented in the HPI. ROS Other: All systems not noted in ROS Statement are negative. Past Medical History Past Medical History: Diabetes Mellitus, GERD/Reflux, Renal Disease Additional Past Medical History / Comment(s): IDDM type II, diabetic neuropathy bilateral feet, DKA, renal insufficiency, hypercalemia, past perianal abscess/fistula with surgery, BPH/urinary retention with surgery, UTI. self cath four times a day, dialysis Tues/thur/sat History of Any Multi-Drug Resistant Organisms: None Reported Past Surgical History: No Surgical Hx Reported Additional Past Surgical History / Comment(s): 08/2014 cystoscopy with TURP, rectal exam/I&D/fistulotomy. I&D back Past Anesthesia/Blood Transfusion Reactions: No Reported Reaction Past Psychological History: No Psychological Hx Reported Smoking Status: Current every day smoker Past Alcohol Use History: None Reported Past Drug Use History: None Reported - Past Family History Mother Family Medical History: Diabetes Mellitus Additional Family Medical History / Comment(s): mother is Father Family Medical History: No Reported History Additional Family Medical History / Comment(s): Father is healthy. General Exam Limitations: no limitations General appearance: alert, in no apparent distress Head exam: Present: atraumatic, normocephalic, normal inspection Eye exam: Present: normal appearance, PERRL, EOMI. Absent: scleral icterus, conjunctival injection, periorbital swelling ENT exam: Present: normal exam, mucous membranes moist Neck exam: Present: normal inspection. Absent: tenderness, meningismus, lymphadenopathy Respiratory exam: Present: normal lung sounds bilaterally. Absent: respiratory distress, wheezes, rales, rhonchi, stridor Cardiovascular Exam: Present: normal rhythm, tachycardia, normal heart sounds. Absent: systolic murmur, diastolic murmur, rubs, gallop, clicks GI/Abdominal exam: Present: soft, normal bowel sounds. Absent: distended, tenderness, guarding, rebound, rigid Extremities exam: Present: normal inspection, full ROM, normal capillary refill. Absent: tenderness, pedal edema, joint swelling, calf tenderness Back exam: Present: normal inspection Neurological exam: Present: alert, oriented X3, CN II-XII intact Psychiatric exam: Present: agitated Skin exam: Present: warm, intact, normal color, diaphoretic. Absent: rash Course Vital Signs 01/26/22 01/26/22 01/26/22 07:43 09:46 11:37 Pulse Rate 109 H 114 H 105 H Respiratory 18 24 16 Rate Blood Pressure 200/90 192/120 182/106 O2 Sat by Pulse 97 98 98 Oximetry 01/26/22 01/26/22 01/26/22 13:00 18:00 20:28 Pulse Rate 102 H 91 93 Respiratory 16 18 18 Rate Blood Pressure 178/97 147/93 143/73 O2 Sat by Pulse 96 98 97 Oximetry Medical Decision Making - Medical Decision Making Upon arrival the patient was placed into room 9. A thorough history and physical exam was performed. IV access was established as he did previously refused access by EMS. Glucose is 483. He is given a liter bolus of normal saline. Laboratory studies are conducted and reviewed. Anion gap is 25. CO2 is 20. Glucose 553. Creatinine 8.7. Chest x-ray demonstrates no evidence for acute cardio pulmonary disease. I am awaiting a urine specimen from the patient as he does straight cath. Requesting straight cath specimen at this time. Patient is started on an insulin drip for hyperglycemia and anion gap metabolic acidosis with possible DKA (awaiting urine - acetone was negative). Dr. Mary and Dr. Silverman paged at this time - Lab Data Result diagrams: 01/27/22 03:20 01/27/22 03:20 Lab Results 01/26/22 01/26/22 01/26/22 Range/Units 07:48 08:28 08:28 WBC 13.6 H (3.8-10.6) k/uL RBC 4.75 (4.30-5.90) m/uL Hgb 13.7 (13.0-17.5) gm/dL Hct 42.9 (39.0-53.0) % MCV 90.2 (80.0-100.0) fL MCH 28.8 (25.0-35.0) pg MCHC 31.9 (31.0-37.0) g/dL RDW 14.0 (11.5-15.5) % Plt Count 477 H (150-450) k/uL MPV 8.1 Neutrophils % 89 % Lymphocytes % 5 % Monocytes % 4 % Eosinophils % 0 % Basophils % 1 % Neutrophils # 12.1 H (1.3-7.7) k/uL Lymphocytes # 0.7 L (1.0-4.8) k/uL Monocytes # 0.6 (0-1.0) k/uL Eosinophils # 0.1 (0-0.7) k/uL Basophils # 0.1 (0-0.2) k/uL PT 10.3 (9.0-12.0) sec INR 0.9 (<1.2) APTT 22.4 (22.0-30.0) sec Sodium (137-145) mmol/L Potassium (3.5-5.1) mmol/L Chloride (98-107) mmol/L Carbon Dioxide (22-30) mmol/L Anion Gap mmol/L BUN (9-20) mg/dL Creatinine (0.66-1.25) mg/dL Est GFR (CKD-EPI)AfAm (>60 ml/min/1.73 sqM) Est GFR (CKD-EPI)NonAf (>60 ml/min/1.73 sqM) Glucose (74-99) mg/dL POC Glucose (mg/dL) 483 H (70-110) mg/dL POC Glu [employer] Fer[employer] Operator ID [place] [address] Glu mg/dL Hemoglobin A1c (0.0-6.0) % Lactic Ac Sepsis Rflx Plasma Lactic Acid Jcarlos (0.7-2.0) mmol/L Calcium (8.4-10.2) mg/dL Magnesium (1.6-2.3) mg/dL Total Bilirubin (0.2-1.3) mg/dL AST (17-59) U/L ALT (4-49) U/L Alkaline Phosphatase (38-126) U/L Troponin I (0.000-0.034) ng/mL NT-Pro-B Natriuret Pep pg/mL Total Protein (6.3-8.2) g/dL Albumin (3.5-5.0) g/dL Urine Color Urine Appearance (Clear) Urine pH (5.0-8.0) Ur Specific [place] (1.001-1.035) Urine Protein (Negative) Urine Glucose (UA) (Negative) Urine Ketones (Negative) Urine Blood (Negative) Urine Nitrite (Negative) Urine Bilirubin (Negative) Urine Urobilinogen (<2.0) mg/dL Ur Leukocyte Esterase (Negative) Urine RBC (0-5) /hpf Urine WBC (0-5) /hpf Urine Bacteria (None) /hpf Acetone, Qual (Negative) 01/26/22 01/26/22 01/26/22 Range/Units 08:28 08:28 08:28 WBC (3.8-10.6) k/uL RBC (4.30-5.90) m/uL Hgb (13.0-17.5) gm/dL Hct (39.0-53.0) % MCV (80.0-100.0) fL MCH (25.0-35.0) pg MCHC (31.0-37.0) g/dL RDW (11.5-15.5) % Plt Count (150-450) k/uL MPV Neutrophils % % Lymphocytes % % Monocytes % % Eosinophils % % Basophils % % Neutrophils # (1.3-7.7) k/uL Lymphocytes # (1.0-4.8) k/uL Monocytes # (0-1.0) k/uL Eosinophils # (0-0.7) k/uL Basophils # (0-0.2) k/uL PT (9.0-12.0) sec INR (<1.2) APTT (22.0-30.0) sec Sodium 134 L (137-145) mmol/L Potassium 4.6 (3.5-5.1) mmol/L Chloride 89 L (98-107) mmol/L Carbon Dioxide 20 L (22-30) mmol/L Anion Gap 25 mmol/L BUN 43 H (9-20) mg/dL Creatinine 8.73 H* (0.66-1.25) mg/dL Est GFR (CKD-EPI)AfAm 7 (>60 ml/min/1.73 sqM) Est GFR (CKD-EPI)NonAf 6 (>60 ml/min/1.73 sqM) Glucose 553 H* (74-99) mg/dL POC Glucose (mg/dL) (70-110) mg/dL POC Glu [employer] Fer[employer] Operator ID Estimated Ave Glu mg/dL Hemoglobin A1c (0.0-6.0) % Lactic Ac Sepsis Rflx Plasma Lactic Acid Jcarlos 3.2 H* (0.7-2.0) mmol/L Calcium 11.4 H (8.4-10.2) mg/dL Magnesium 2.1 (1.6-2.3) mg/dL Total Bilirubin 1.0 (0.2-1.3) mg/dL AST 18 (17-59) U/L ALT 13 (4-49) U/L Alkaline Phosphatase 228 H (38-126) U/L Troponin I <0.012 (0.000-0.034) ng/mL NT-Pro-B Natriuret Pep pg/mL Total Protein 7.4 (6.3-8.2) g/dL Albumin 4.8 (3.5-5.0) g/dL Urine Color Urine Appearance (Clear) Urine pH (5.0-8.0) Ur Specific [place] (1.001-1.035) Urine Protein (Negative) Urine Glucose (UA) (Negative) Urine Ketones (Negative) Urine Blood (Negative) Urine Nitrite (Negative) Urine Bilirubin (Negative) Urine Urobilinogen (<2.0) mg/dL Ur Leukocyte Esterase (Negative) Urine RBC (0-5) /hpf Urine WBC (0-5) /hpf Urine Bacteria (None) /hpf Acetone, Qual Negative (Negative) 01/26/22 01/26/22 01/26/22 Range/Units 08:28 08:28 09:13 WBC (3.8-10.6) k/uL RBC (4.30-5.90) m/uL Hgb (13.0-17.5) gm/dL Hct (39.0-53.0) % MCV (80.0-100.0) fL MCH (25.0-35.0) pg MCHC (31.0-37.0) g/dL RDW (11.5-15.5) % Plt Count (150-450) k/uL MPV Neutrophils % % Lymphocytes % % Monocytes % % Eosinophils % % Basophils % % Neutrophils # (1.3-7.7) k/uL Lymphocytes # (1.0-4.8) k/uL Monocytes # (0-1.0) k/uL Eosinophils # (0-0.7) k/uL Basophils # (0-0.2) k/uL PT (9.0-12.0) sec INR (<1.2) APTT (22.0-30.0) sec Sodium (137-145) mmol/L Potassium (3.5-5.1) mmol/L Chloride (98-107) mmol/L Carbon Dioxide (22-30) mmol/L Anion Gap mmol/L BUN (9-20) mg/dL Creatinine (0.66-1.25) mg/dL Est GFR (CKD-EPI)AfAm (>60 ml/min/1.73 sqM) Est GFR (CKD-EPI)NonAf (>60 ml/min/1.73 sqM) Glucose (74-99) mg/dL POC Glucose (mg/dL) (70-110) mg/dL POC Glu [employer] Fer[employer] Operator ID Estimated Ave Glu mg/dL 140 Hemoglobin A1c 6.5 H (0.0-6.0) % Lactic Ac Sepsis Rflx Y Plasma Lactic Acid Jcarlos (0.7-2.0) mmol/L Calcium (8.4-10.2) mg/dL Magnesium (1.6-2.3) mg/dL Total Bilirubin (0.2-1.3) mg/dL AST (17-59) U/L ALT (4-49) U/L Alkaline Phosphatase (38-126) U/L Troponin I (0.000-0.034) ng/mL NT-Pro-B Natriuret Pep 7410 pg/mL Total Protein (6.3-8.2) g/dL Albumin (3.5-5.0) g/dL Urine Color Urine Appearance (Clear) Urine pH (5.0-8.0) Ur Specific [place] (1.001-1.035) Urine Protein (Negative) Urine Glucose (UA) (Negative) Urine Ketones (Negative) Urine Blood (Negative) Urine Nitrite (Negative) Urine Bilirubin (Negative) Urine Urobilinogen (<2.0) mg/dL Ur Leukocyte Esterase (Negative) Urine RBC (0-5) /hpf Urine WBC (0-5) /hpf Urine Bacteria (None) /hpf Acetone, Qual (Negative) 01/26/22 01/26/22 Range/Units 10:25 10:32 WBC (3.8-10.6) k/uL RBC (4.30-5.90) m/uL Hgb (13.0-17.5) gm/dL Hct (39.0-53.0) % MCV (80.0-100.0) fL MCH (25.0-35.0) pg MCHC (31.0-37.0) g/dL RDW (11.5-15.5) % Plt Count (150-450) k/uL MPV Neutrophils % % Lymphocytes % % Monocytes % % Eosinophils % % Basophils % % Neutrophils # (1.3-7.7) k/uL Lymphocytes # (1.0-4.8) k/uL Monocytes # (0-1.0) k/uL Eosinophils # (0-0.7) k/uL Basophils # (0-0.2) k/uL PT (9.0-12.0) sec INR (<1.2) APTT (22.0-30.0) sec Sodium (137-145) mmol/L Potassium (3.5-5.1) mmol/L Chloride (98-107) mmol/L Carbon Dioxide (22-30) mmol/L Anion Gap mmol/L BUN (9-20) mg/dL Creatinine (0.66-1.25) mg/dL Est GFR (CKD-EPI)AfAm (>60 ml/min/1.73 sqM) Est GFR (CKD-EPI)NonAf (>60 ml/min/1.73 sqM) Glucose (74-99) mg/dL POC Glucose (mg/dL) 524 H (70-110) mg/dL POC Glu [employer] Fer[employer] Operator ID [place] [address] Glu mg/dL Hemoglobin A1c (0.0-6.0) % Lactic Ac Sepsis Rflx Plasma Lactic Acid Jcarlos (0.7-2.0) mmol/L Calcium (8.4-10.2) mg/dL Magnesium (1.6-2.3) mg/dL Total Bilirubin (0.2-1.3) mg/dL AST (17-59) U/L ALT (4-49) U/L Alkaline Phosphatase (38-126) U/L Troponin I (0.000-0.034) ng/mL NT-Pro-B Natriuret Pep pg/mL Total Protein (6.3-8.2) g/dL Albumin (3.5-5.0) g/dL Urine Color Light Yellow Urine Appearance Clear (Clear) Urine pH 8.5 H (5.0-8.0) Ur Specific [place] 1.007 (1.001-1.035) Urine Protein 3+ H (Negative) Urine Glucose (UA) 4+ H (Negative) Urine Ketones 1+ H (Negative) Urine Blood Negative (Negative) Urine Nitrite Negative (Negative) Urine Bilirubin Negative (Negative) Urine Urobilinogen <2.0 (<2.0) mg/dL Ur Leukocyte Esterase Negative (Negative) Urine RBC 1 (0-5) /hpf Urine WBC 12 H (0-5) /hpf Urine Bacteria Rare H (None) /hpf Acetone, Qual (Negative) Critical Care Time Critical Care Time: Yes Critical Care Time: 35 minutes Disposition Clinical Impression: Diabetic ketoacidosis, Nausea and vomiting, Chronic renal failure, ESRD (end stage renal disease) on dialysis Disposition: ADMITTED IP TO THIS [facility] Condition: Serious Is patient prescribed a controlled substance at d/c from ED?: No Time of Disposition: 10:25 Decision to Admit Reason: Admit from EC Decision Date: 01/26/22 Decision Time: 10:25
[2022-01-26 10:27] LABS: Glucose,Whole Blood 524 mg/dL (70-110)
[2022-01-26] MEDS: SODIUM CHLORIDE 0.9% 1,000 ML IV SCH ×4 (10:30→21:39)
[2022-01-26] MEDS ORDERED: ONDANSETRON 4 MG/2 ML VIAL IVP PRN (10:51)
[2022-01-26 11:24] LABS: Appearance,Urine Clear (Clear); Bacteria,Urine Rare /hpf; Bilirubin,Urine Negative (Negative); Blood,Urine Negative (Negative); Color,Urine Light Yellow; Glucose,Urine (UA) 4+ (Negative); Ketones,Urine 1+ (Negative); Leukocyte Esterase,Urine Negative (Negative); Nitrite,Urine Negative (Negative); PH, Urine 8.5 (5.0-8.0); Protein,Urine 3+ (Negative); RBC,Urine 1 /hpf (0-5); Specific Gravity,Urine 1.007 (1.001-1.035); Urobilinogen,Urine <2.0 mg/dL (<2.0); WBC,Urine 12 /hpf (0-5)
[2022-01-26 11:35] LABS: Glucose,Whole Blood 451 mg/dL (70-110)
[2022-01-26 12:32] LABS: Phosphorus 2.7 mg/dL (2.5-4.5); Potassium 3.8 mmol/L (3.5-5.1)
[2022-01-26 12:34] LABS: Glucose,Whole Blood 392 mg/dL (70-110)
[2022-01-26] MEDS ORDERED: DEXTROSE 50% SYRINGE 50 ML IVP PRN ×2 (12:36)
[2022-01-26] MEDS ORDERED: PANTOPRAZOLE 40 MG TABLET PO SCH (12:45)
[2022-01-26] MEDS ORDERED: hydrALAZINE HCL 20 MG/ML 1 ML VIAL IVP PRN (12:46)
--- NOTE | 2022-01-26 12:50 | P.NPCON ---
History of Present Illness - Reason for Consult end stage renal disease - History of Present Illness Reason for consultation: End-stage renal disease History of present illness: Patient is a 51-year-old male seen in consultation for end-stage renal disease. Patient was seen and examined in the emergency room. He is maintained on hemodialysis on Tuesday schedule. Patient presented to the hospital due to vomiting which she states began yesterday. Patient states he has not been able to keep his medications down. Patient does perform self catheterizations 3-4 times daily. Patient's blood sugar has also been high. He is currently on insulin drip. Blood pressure is also been high. Denies chest pain or shortness of breath. No headache. Last hemodialysis was Tuesday. Chest x-ray is clear. He is also receiving IV fluids. It is noted from the EMS note that he was uncooperative with them initially. Currently appears calm. Vital signs are stable. Blood pressure high. General: Awake. No acute distress. HEENT: Head exam is unremarkable. LUNGS: Breath sounds decreased. HEART: Rate and Rhythm are regular. ABDOMEN: Soft, no distention. EXTREMITITES: No edema. Past Medical History Past Medical History: Diabetes Mellitus, GERD/Reflux, Renal Disease Additional Past Medical History / Comment(s): IDDM type II, diabetic neuropathy bilateral feet, DKA, renal insufficiency, hypercalemia, past perianal a bscess/fistula with surgery, BPH/urinary retention with surgery, UTI. self cath four times a day, dialysis //tue History of Any Multi-Drug Resistant Organisms: None Reported Past Surgical History: No Surgical Hx Reported Additional Past Surgical History / Comment(s): 08/2014 cystoscopy with TURP, rectal exam/I&D/fistulotomy. I&D back Past Anesthesia/Blood Transfusion Reactions: No Reported Reaction Past Psychological History: No Psychological Hx Reported Smoking Status: Current every day smoker Past Alcohol Use History: None Reported Past Drug Use History: None Reported - Past Family History Mother Family Medical History: Diabetes Mellitus Additional Family Medical History / Comment(s): mother is Father Family Medical History: No Reported History Additional Family Medical History / Comment(s): Father is healthy. Medications and Allergies Home Medications Medication Instructions Recorded Confirmed Type Insulin Aspart [NovoLOG Flexpen] See Protocol SQ AC-TID 07/09/19 01/26/22 History Insulin Degludec [Tresiba 70 units SQ HS 03/18/21 01/26/22 History Flextouch U-200 Pen] lisinopriL [Zestril] 40 mg PO HS 03/18/21 01/26/22 History Lansoprazole 30 mg PO DAILY 04/07/21 01/26/22 History Ondansetron [Zofran] 4 mg PO Q6H PRN 11/28/21 01/26/22 History Hyoscyamine Sulfate [Levbid] 0.375 mg PO Q12HR PRN 01/26/22 01/26/22 History Prochlorperazine [Compazine] 10 mg PO TID 01/26/22 01/26/22 History hydrALAZINE HCL [Apresoline] 100 mg PO TID 01/26/22 01/26/22 History Allergies Allergy/AdvReac Type Severity Reaction Status Date / Time No Known Allergies Allergy Verified 01/24/22 19:30 Physical Exam Vitals: Vital Signs Pulse Resp BP Pulse Ox 01/26/22 11:37 105 H 16 182/106 98 01/26/22 09:46 114 H 24 192/120 98 01/26/22 07:43 109 H 18 200/90 97 Intake and Output 01/25/22 01/26/22 01/26/22 22:59 06:59 14:59 Intake Total 16.116 Balance 16.116 Intake: Intake, IV Titration 16.116 Amount Insulin Regular 100 unit 16.116 In Sodium Chloride 0.9% 100 ml @ 0.1 UNITS/KG/HR 7.926 mls/hr IV .[id number] [facility] Rx#:[id number] Other: Weight 78.471 kg Results - Lab Results Most recent lab results Calcium 11.4 mg/dL (8.4-10.2) H 01/26/22 08:28 Phosphorus 2.7 mg/dL (2.5-4.5) 01/26/22 11:53 Magnesium 2.1 mg/dL (1.6-2.3) 01/26/22 08:28 01/26/22 08:28 01/26/22 11:53 Assessment and Plan Plan: Assessment: 1. End-stage renal disease maintained on hemodialysis on [place] Thursday Saturday schedule via right chest permacath. 2. DKA maintained on insulin drip and IV fluids. 3. Hypertension with chronic kidney disease. Exacerbated by vomiting and inability to take medications. 4. Obstructive uropathy. Patient performs self catheterizations at home. Plan: Hemodialysis today. Decrease rate of normal saline to 100 mL an hour. Home antihypertensives resumed. Add hydralazine 10 mg IV every 4 hours as needed for systolic blood pressure greater than 160. Continue with straight catheterizations every 6 hours. Phosphorus 2.7 today. Thank you for the consultation. I will continue to follow patient with you during his hospital stay.
[2022-01-26 13:28] LABS: Glucose,Whole Blood 300 mg/dL (70-110)
[2022-01-26 14:49] LABS: Glucose,Whole Blood 172 mg/dL (70-110)
[2022-01-26] MEDS: D5-0.45% NACL WITH KCL 20MEQ/L 1,000 ML IV SCH ×2 (15:19→22:04)
[2022-01-26] MEDS: PROCHLORPERAZINE 10 MG TAB PO SCH ×2 (17:11→17:12)
[2022-01-26 17:12] LABS: Glucose,Whole Blood 79 mg/dL (70-110)
[2022-01-26 17:52] LABS: Glucose,Whole Blood 55 mg/dL (70-110)
[2022-01-26 18:41] LABS: Phosphorus 3.1 mg/dL (2.5-4.5)
[2022-01-26 19:07] LABS: Glucose,Whole Blood 117 mg/dL (70-110)
[2022-01-26 20:43] LABS: Glucose,Whole Blood 119 mg/dL (70-110)
[2022-01-26] MEDS ORDERED: lisinopriL 20 MG TAB PO SCH (21:00)
[2022-01-26 21:32] LABS: Glucose,Whole Blood 123 mg/dL (70-110)
[2022-01-26] MEDS: hydrALAZINE HCL 50 MG TAB PO SCH ×2 (21:37→21:39)
[2022-01-26 22:31] LABS: Glucose,Whole Blood 111 mg/dL (70-110)
[2022-01-26 23:37] LABS: Glucose,Whole Blood 211 mg/dL (70-110)
[2022-01-26 23:55] LABS: Calcium 8.9 mg/dL (8.4-10.2); Phosphorus 3.6 mg/dL (2.5-4.5); Potassium 3.9 mmol/L (3.5-5.1)
[2022-01-27 00:45] LABS: Glucose,Whole Blood 235 mg/dL (70-110)
[2022-01-27 01:02] LABS: Hepatitis B Surface AB- Quant 3.5 mIU/mL; Hepatitis B Surface Antibody Nonreactive (Nonreactive)
[2022-01-27 01:33] LABS: Hepatitis B Surface Antigen Nonreactive (Nonreactive)
[2022-01-27 01:50] LABS: Glucose,Whole Blood 266 mg/dL (70-110)
[2022-01-27 02:35] LABS: Glucose,Whole Blood 262 mg/dL (70-110)
[2022-01-27 03:47] LABS: Glucose,Whole Blood 244 mg/dL (70-110)
[2022-01-27 03:52] LABS: HCT 34.8 % (39.0-53.0); HGB 11.2 gm/dL (13.0-17.5); MCH 29.3 pg (25.0-35.0); MCHC 32.1 g/dL (31.0-37.0); MCV 91.1 fL (80.0-100.0); Mean Platelet Volume 7.2; Platelet Count 288 k/uL (150-450); RBC 3.82 m/uL (4.30-5.90); RDW 13.7 % (11.5-15.5); WBC 14.1 k/uL (3.8-10.6)
[2022-01-27 04:03] LABS: Calcium 9.2 mg/dL (8.4-10.2); Phosphorus 3.8 mg/dL (2.5-4.5); Potassium 4.2 mmol/L (3.5-5.1)
[2022-01-27 04:06] LABS: Albumin 3.4 g/dL (3.5-5.0); Calcium 9.1 mg/dL (8.4-10.2); Potassium 4.2 mmol/L (3.5-5.1); Total Bilirubin 0.4 mg/dL (0.2-1.3); Total Protein 5.7 g/dL (6.3-8.2)
[2022-01-27 04:57] VITALS: BP 155/84; PULSE 92; RESP 19; TEMP 98
== END 2022-01-27 05:45 | disposition left against medical advice (07) | DRG 637 ==
LOC: EC 07:38 → 3SCARD 10:49
PROVIDERS: ADMIT Family Medicine; ATTEND Family Medicine
PROC: 5A1D70Z Performance of Urinary Filtration, Intermittent, Less than 6 Hours Per Day (ICD-10-PCS; principal; 2022-01-26)
DX: E11.10 Type 2 diabetes mellitus with ketoacidosis without coma (principal); N18.6 End stage renal disease; I12.0 Hypertensive chronic kidney disease with stage 5 chronic kidney disease or end stage renal disease; N13.8 Other obstructive and reflux uropathy; E11.22 Type 2 diabetes mellitus with diabetic chronic kidney disease; E11.42 Type 2 diabetes mellitus with diabetic polyneuropathy; F17.210 Nicotine dependence, cigarettes, uncomplicated; N40.1 Benign prostatic hyperplasia with lower urinary tract symptoms; R33.8 Other retention of urine; Z53.29 Procedure and treatment not carried out because of patient's decision for other reasons; Z99.2 Dependence on renal dialysis; Z79.4 Long term (current) use of insulin; Z79.899 Other long term (current) drug therapy; Z83.3 Family history of diabetes mellitus
CPT/HCPCS: 36415; 71046; 80048; 80051; 80053; 81001; 82009; 82565; 82947; 83036; 83605; 83735; 83880; 84100; 84484; 84520; 85025; 85027; 85610; 85730; 86706; 87340; 96361; 96374; 96376; 99285

== ENCOUNTER 2022-01-30 19:09 | Emergency (ER) | payer OTHER ==
[2022-01-30 19:34] VITALS: TEMP 97.5
--- NOTE | 2022-01-30 19:35 | ED ---
General Adult HPI - General Chief complaint: Fall Stated complaint: AMS, increased weakness Time Seen by Provider: 01/30/22 19:10 Source: patient, EMS Mode of arrival: EMS Limitations: altered mental status - History of Present Illness Initial comments: Patient presents to the ED by ambulance for evaluation. Per EMS, the patient reportedly fell at some point today, and the patient's father called for an ambulance due to weakness and altered mentation. Patient is only nodding his head yes and no when asked questions on arrival to the ED, and he is not verbalizing whatsoever. It is unclear whether or not the patient is doing this by choice. I am unsure of the patient's baseline mental status at this time. Patient points to his abdomen when asked if he is having any pain. Patient shakes his head no when asked if he hurts anywhere else. History from the patient is otherwise very limited at this time. Patient is reportedly a dialysis patient. - Related Data Home Medications Medication Instructions Recorded Confirmed Insulin Aspart [NovoLOG Flexpen] See Protocol SQ AC-TID 07/09/19 01/30/22 Insulin Degludec [Tresiba 70 units SQ HS 03/18/21 01/30/22 Flextouch U-200 Pen] lisinopriL [Zestril] 40 mg PO HS 03/18/21 01/30/22 Lansoprazole 30 mg PO DAILY 04/07/21 01/30/22 Ondansetron [Zofran] 4 mg PO Q6H PRN 11/28/21 01/30/22 Hyoscyamine Sulfate [Levbid] 0.375 mg PO Q12HR PRN 01/26/22 01/30/22 Prochlorperazine [Compazine] 10 mg PO TID 01/26/22 01/30/22 hydrALAZINE HCL [Apresoline] 100 mg PO TID 01/26/22 01/30/22 Allergies Allergy/AdvReac Type Severity Reaction Status Date / Time No Known Allergies Allergy Verified 01/24/22 19:30 Review of Systems ROS Statement: Those systems with pertinent positive or pertinent negative responses have been documented in the HPI. ROS Other: All systems not noted in ROS Statement are negative. Limitations: ROS unobtainable due to patients medical condition Past Medical History Past Medical History: Diabetes Mellitus, GERD/Reflux, Renal Disease Additional Past Medical History / Comment(s): IDDM type II, diabetic neuropathy bilateral feet, DKA, renal insufficiency, hypercalemia, past perianal abscess/fistula with surgery, BPH/urinary retention with surgery, UTI. self cath four times a day, dialysis Tues/thur/sat History of Any Multi-Drug Resistant Organisms: None Reported Past Surgical History: No Surgical Hx Reported Additional Past Surgical History / Comment(s): 08/2014 cystoscopy with TURP, rectal exam/I&D/fistulotomy. I&D back Past Anesthesia/Blood Transfusion Reactions: No Reported Reaction Past Psychological History: No Psychological Hx Reported Smoking Status: Current every day smoker Past Alcohol Use History: None Reported Past Drug Use History: None Reported - Past Family History Mother Family Medical History: Diabetes Mellitus Additional Family Medical History / Comment(s): mother is Father Family Medical History: No Reported History Additional Family Medical History / Comment(s): Father is healthy. General Exam Limitations: altered mental status General appearance: alert Head exam: Present: atraumatic, normocephalic Eye exam: Present: normal appearance, PERRL, EOMI ENT exam: Present: mucous membranes moist Neck exam: Present: other (Trachea is in midline; no nuchal rigidity or meningeal signs are present on exam). Absent: tenderness, meningismus Respiratory exam: Present: normal lung sounds bilaterally. Absent: respiratory distress, wheezes, rales, rhonchi, stridor Cardiovascular Exam: Present: regular rate, normal rhythm, normal heart sounds, other (Normal radial pulses bilaterally) GI/Abdominal exam: Present: soft, normal bowel sounds, other (Moderate generalized abdominal tenderness). Absent: distended, guarding, rebound Extremities exam: Absent: tenderness, pedal edema, calf tenderness Back exam: Absent: CVA tenderness (R), CVA tenderness (L) Neurological exam: Present: alert, other (Patient is nonverbal at this time). Absent: motor sensory deficit Skin exam: Present: warm, dry, intact, normal color Course Vital Signs 01/30/22 19:23 Temperature 97.5 F L Pulse Rate 89 Respiratory 16 Rate Blood Pressure 159/89 O2 Sat by Pulse 98 Oximetry - Reevaluation(s) Reevaluation #1: 01/30/22 22:54 Patient is now speaking to me. Patient states that he was not speaking earlier because he does not want to. Patient states that he has come to the ED due to nausea and vomiting, and he is requesting IV Zofran at this time. Patient has not had any vomiting while in the ED. Patient is A and O 3 at this time. 01/30/22 23:30 Patient remains A and O 3 and breathing comfortably. Patient has not had any vomiting while in the ED. Patient's abdomen remains soft and without any surgical signs. Patient is aware of his test results, and he feels comfortable being discharged home at this time. Patient was counseled about abdominal pain, vomiting, falls and chronic renal failure. Patient was clearly explained return and follow-up instructions. Patient was instructed to follow up closely with his primary care provider. Patient feels comfortable with this plan. EKG Findings - EKG Comments: EKG Findings:: Normal sinus rhythm, occasional supraventricular premature complexes, ventricular rate of 88 bpm, normal AK interval, right bundle branch block (unchanged from 11/28/2021 EKG), QRS duration of 133 ms, normal QT interval, normal axis, no ST elevation Medical Decision Making - Medical Decision Making Patient was nonverbal on presentation to the ED, but it turns out that that was by choice. Patient is now A and O 3. Other than chronic renal insufficiency, the patient's labs are fairly unremarkable. Patient is afebrile and without leukocytosis. Patient has a benign abdominal exam. Patient's imaging studies are fairly unremarkable. I do not suspect an emergent medical condition. Will discharge patient home at this time. Patient feels comfortable with this plan. - Lab Data Result diagrams: 01/30/22 20:52 01/30/22 20:52 Lab Results 01/30/22 01/30/22 01/30/22 Range/Units 20:52 20:52 20:52 WBC 9.5 (3.8-10.6) k/uL RBC 4.28 L (4.30-5.90) m/uL Hgb 12.5 L (13.0-17.5) gm/dL Hct 37.0 L (39.0-53.0) % MCV 86.5 (80.0-100.0) fL MCH 29.1 (25.0-35.0) pg MCHC 33.7 (31.0-37.0) g/dL RDW 12.9 (11.5-15.5) % Plt Count 224 (150-450) k/uL MPV 7.1 Neutrophils % 79 % Lymphocytes % 13 % Monocytes % 6 % Eosinophils % 1 % Basophils % 0 % Neutrophils # 7.4 (1.3-7.7) k/uL Lymphocytes # 1.3 (1.0-4.8) k/uL Monocytes # 0.5 (0-1.0) k/uL Eosinophils # 0.1 (0-0.7) k/uL Basophils # 0.0 (0-0.2) k/uL PT 10.6 (9.0-12.0) sec INR 1.0 (<1.2) APTT 21.3 L (22.0-30.0) sec Sodium 133 L (137-145) mmol/L Potassium 3.8 (3.5-5.1) mmol/L Chloride 94 L (98-107) mmol/L Carbon Dioxide 28 (22-30) mmol/L Anion Gap 11 mmol/L BUN 17 (9-20) mg/dL Creatinine 4.28 H (0.66-1.25) mg/dL Est GFR (CKD-EPI)AfAm 17 (>60 ml/min/1.73 sqM) Est GFR (CKD-EPI)NonAf 15 (>60 ml/min/1.73 sqM) Glucose 193 H (74-99) mg/dL Calcium 10.2 (8.4-10.2) mg/dL Magnesium 1.9 (1.6-2.3) mg/dL Total Bilirubin 0.5 (0.2-1.3) mg/dL AST 16 L (17-59) U/L ALT 10 (4-49) U/L Alkaline Phosphatase 136 H (38-126) U/L Ammonia (<30) umol/L Troponin I (0.000-0.034) ng/mL Total Protein 5.9 L (6.3-8.2) g/dL Albumin 3.7 (3.5-5.0) g/dL Lipase 31 (23-300) U/L Serum Alcohol <10 mg/dL 01/30/22 01/30/22 Range/Units 20:52 20:52 WBC (3.8-10.6) k/uL RBC (4.30-5.90) m/uL Hgb (13.0-17.5) gm/dL Hct (39.0-53.0) % MCV (80.0-100.0) fL MCH (25.0-35.0) pg MCHC (31.0-37.0) g/dL RDW (11.5-15.5) % Plt Count (150-450) k/uL MPV Neutrophils % % Lymphocytes % % Monocytes % % Eosinophils % % Basophils % % Neutrophils # (1.3-7.7) k/uL Lymphocytes # (1.0-4.8) k/uL Monocytes # (0-1.0) k/uL Eosinophils # (0-0.7) k/uL Basophils # (0-0.2) k/uL PT (9.0-12.0) sec INR (<1.2) APTT (22.0-30.0) sec Sodium (137-145) mmol/L Potassium (3.5-5.1) mmol/L Chloride (98-107) mmol/L Carbon Dioxide (22-30) mmol/L Anion Gap mmol/L BUN (9-20) mg/dL Creatinine (0.66-1.25) mg/dL Est GFR (CKD-EPI)AfAm (>60 ml/min/1.73 sqM) Est GFR (CKD-EPI)NonAf (>60 ml/min/1.73 sqM) Glucose (74-99) mg/dL Calcium (8.4-10.2) mg/dL Magnesium (1.6-2.3) mg/dL Total Bilirubin (0.2-1.3) mg/dL AST (17-59) U/L ALT (4-49) U/L Alkaline Phosphatase (38-126) U/L Ammonia <9 (<30) umol/L Troponin I <0.012 (0.000-0.034) ng/mL Total Protein (6.3-8.2) g/dL Albumin (3.5-5.0) g/dL Lipase (23-300) U/L Serum Alcohol mg/dL - Radiology Data Noncontrast head CT: Mild atrophy. No acute intracranial abnormality. No change. 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 Chest x-ray: Normal chest. No change. Noncontrast CT abdomen/pelvis: There is mild urinary bladder wall thickening suggestive of some nonspecific cystitis without change. Disposition Clinical Impression: Fall, Chronic renal failure, Abdominal pain, Nausea and vomiting Disposition: HOME SELF-CARE Condition: Stable Instructions (If sedation given, give patient instructions): Chronic Kidney Disease (ED), Acute Nausea and Vomiting (ED), Abdominal Pain (ED), Fall Prevention (ED) Additional Instructions: Return to the ER immediately should you develop increased pain, persistent vomiting, a fever, shortness of breath, feeling dizzy or faint, or new or worsening symptoms. Follow up closely with your primary care provider. Is patient prescribed a controlled substance at d/c from ED?: No Referrals: Cristi Mary MD [Primary Care Provider] - 1-2 days Time of Disposition: 23:34
--- NOTE | 2022-01-30 20:33 | XR ---
EXAMINATION TYPE: XR chest 1V portable DATE OF EXAM: 01/30/2022 COMPARISON: 01/26/2022 HISTORY: Altered mental status TECHNIQUE: Single view FINDINGS: Heart and mediastinum are normal. Lungs are clear. Diaphragm is normal. Bony thorax is inta ct. There is right central venous catheter with tip in the right atrium. No pleural effusion. IMPRESSION: Normal chest. No change.
--- NOTE | 2022-01-30 21:23 | CT ---
EXAMINATION TYPE: CT brain wo con DATE OF EXAM: 01/30/2022 COMPARISON: 07/30/2021 HISTORY: AMS CT DLP: 1188.4 mGycm Automated exposure control for dose reduction was used. Images of the brain obtained with no contrast. There is mild cerebral atrophy. There is no mass effect or midline shift. No sign of intracranial hem orrhage. The calvarium is intact. Skull base is intact. There is small 5 mm old lacunar infarct in the anterior left internal capsule. IMPRESSION: Mild atrophy. No acute intracranial abnormality. No change. 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
--- NOTE | 2022-01-30 21:29 | CT ---
EXAMINATION TYPE: CT abdomen pelvis wo con DATE OF EXAM: 01/30/2022 COMPARISON: 01/24/2022 HISTORY: Abdominal pain CT DLP: 867.2 mGycm Automated exposure control for dose reduction was used. Images obtained of the abdomen and pelvis without contrast. Lung bases are clear of infiltrate. No pleural effusion. Heart size is normal. No pericardial effusio n. Liver and spleen are intact. Gallbladder appears normal. Bile ducts are nondilated. No pancreatic mass. The stomach is intact. There is no adrenal mass. Kidneys have normal size and contour. No hydronephrosis. There is no retrop eritoneal adenopathy. Urinary bladder shows mild wall thickening. No inguinal hernia. No free fluid i n the pelvis. No pelvic mass. There is moderate vascular calcification. There is high density contras t material in the large bowel. The lumbar vertebrae have normal alignment. Posterior element are intact. No compression fracture. Di sc spaces are fairly normal. The bony pelvis is intact. The hip joints are intact. Sacroiliac joints are intact. Appendix is not well seen. No significant thickened appendix. There is no mesenteric edema. No ascites or free air. No sign of a bowel obstruction. IMPRESSION: There is mild urinary bladder wall thickening suggestive of some nonspecific cystitis without change.
[2022-01-30 21:39] LABS: Basophils % (A) 0 %; Eosinophils # (A) 0.1 k/uL (0-0.7); Eosinophils % (A) 1 %; HGB 12.5 gm/dL (13.0-17.5); Lymphocytes # (A) 1.3 k/uL (1.0-4.8); Lymphocytes % (A) 13 %; MCH 29.1 pg (25.0-35.0); MCHC 33.7 g/dL (31.0-37.0); MCV 86.5 fL (80.0-100.0); Mean Platelet Volume 7.1; Monocytes # (A) 0.5 k/uL (0-1.0); Monocytes % (A) 6 %; Neutrophils # (A) 7.4 k/uL (1.3-7.7); Neutrophils % (A) 79 %; Platelet Count 224 k/uL (150-450); RBC 4.28 m/uL (4.30-5.90); RDW 12.9 % (11.5-15.5); WBC 9.5 k/uL (3.8-10.6)
[2022-01-30 21:52] LABS: ALT 10 U/L (4-49); AST 16 U/L (17-59); African American GFR (CKD) 17 (>60 ml/min/1.73 sqM); Albumin 3.7 g/dL (3.5-5.0); Alcohol <10 mg/dL; Alkaline Phosphatase 136 U/L (38-126); Anion Gap 11 mmol/L; Blood Urea Nitrogen 17 mg/dL (9-20); Calcium 10.2 mg/dL (8.4-10.2); Carbon Dioxide 28 mmol/L (22-30); Chloride 94 mmol/L (98-107); Glucose 193 mg/dL (74-99); Lipase 31 U/L (23-300); Magnesium 1.9 mg/dL (1.6-2.3); Non-African American GFR(CKD) 15 (>60 ml/min/1.73 sqM); Potassium 3.8 mmol/L (3.5-5.1); Sodium 133 mmol/L (137-145); Total Bilirubin 0.5 mg/dL (0.2-1.3); Total Protein 5.9 g/dL (6.3-8.2)
[2022-01-30 22:00] LABS: Prothrombin Time 10.6 sec (9.0-12.0)
[2022-01-30 22:06] LABS: Partial Thromboplastin Time 21.3 sec (22.0-30.0)
[2022-01-30] MEDS ORDERED: ONDANSETRON 4 MG/2 ML VIAL IVP STA (22:54)
[2022-01-30 23:46] VITALS: BP 170/68; PULSE 80; RESP 17
== END 2022-01-31 00:20 | disposition home or self-care (01) ==
LOC: EC 19:09
DX: R10.9 Unspecified abdominal pain (principal); N18.6 End stage renal disease; R41.82 Altered mental status, unspecified; E11.9 Type 2 diabetes mellitus without complications; K21.9 Gastro-esophageal reflux disease without esophagitis; F17.200 Nicotine dependence, unspecified, uncomplicated; Z79.4 Long term (current) use of insulin; Z79.899 Other long term (current) drug therapy; Z99.2 Dependence on renal dialysis; W19.XXXA Unspecified fall, initial encounter
CPT/HCPCS: 80053; 82140; 83690; 83735; 84484; 85025; 85610; 85730; 80320; 71045; 70450; 74176; 99285; 96374; J2405; 36415

== ENCOUNTER 2022-01-31 20:55 | Inpatient (IN) | payer OTHER ==
[2022-01-31] MEDS ORDERED: ONDANSETRON 4 MG/2 ML VIAL IVP STA (21:00)
[2022-01-31] MEDS ORDERED: SODIUM CHLORIDE 0.9% 500 ML 500 ML IV STA (21:00)
--- NOTE | 2022-01-31 21:08 | ED ---
General Adult HPI - General Chief complaint: Abdominal Pain Stated complaint: Vomiting, Nausea, Hyperglycemia Time Seen by Provider: 01/31/22 21:00 Source: patient, EMS Mode of arrival: EMS Limitations: no limitations - History of Present Illness Initial comments: Patient returns to the ED by ambulance for evaluation. Patient is complaining of having nausea, vomiting and generalized abdominal pain. Patient was seen in the ED for the symptoms yesterday as well. Patient states that his nausea/vomiting and abdominal pain continue. Patient had a fairly unremarkable CT abdomen/pelvis done in the ED yesterday. Patient is diabetic, and he states that his blood glucose readings have been high today. Patient states that he is unsure if he took his insulin today. Patient is a dialysis patient, and he states that he was last dialyzed yesterday. Patient denies fever or chills, headache, focal neuro deficit, chest pain or pressure, dyspnea, cough or cold symptoms, palpitations, dizziness, back or flank pain, diarrhea or constipation, bloody or melanotic stool, hematemesis, or any other symptoms or complaints. - Related Data Home Medications Medication Instructions Recorded Confirmed Insulin Aspart [NovoLOG Flexpen] See Protocol SQ AC-TID 07/09/19 01/30/22 Insulin Degludec [Tresiba 70 units SQ HS 03/18/21 01/30/22 Flextouch U-200 Pen] lisinopriL [Zestril] 40 mg PO HS 03/18/21 01/30/22 Lansoprazole 30 mg PO DAILY 04/07/21 01/30/22 Ondansetron [Zofran] 4 mg PO Q6H PRN 11/28/21 01/30/22 Hyoscyamine Sulfate [Levbid] 0.375 mg PO Q12HR PRN 01/26/22 01/30/22 Prochlorperazine [Compazine] 10 mg PO TID 01/26/22 01/30/22 hydrALAZINE HCL [Apresoline] 100 mg PO TID 01/26/22 01/30/22 Allergies Allergy/AdvReac Type Severity Reaction Status Date / Time No Known Allergies Allergy Verified 01/24/22 19:30 Review of Systems ROS Statement: Those systems with pertinent positive or pertinent negative responses have been documented in the HPI. ROS Other: All systems not noted in ROS Statement are negative. Past Medical History Past Medical History: Diabetes Mellitus, GERD/Reflux, Renal Disease Additional Past Medical History / Comment(s): IDDM type II, diabetic neuropathy bilateral feet, DKA, renal insufficiency, hypercalemia, past perianal abscess/fistula with surgery, BPH/urinary retention with surgery, UTI. self cath four times a day, dialysis Tues/thur/sat History of Any Multi-Drug Resistant Organisms: None Reported Past Surgical History: No Surgical Hx Reported Additional Past Surgical History / Comment(s): 08/2014 cystoscopy with TURP, rectal exam/I&D/fistulotomy. I&D back Past Anesthesia/Blood Transfusion Reactions: No Reported Reaction Past Psychological History: No Psychological Hx Reported Smoking Status: Current every day smoker Past Alcohol Use History: None Reported Past Drug Use History: None Reported - Past Family History Mother Family Medical History: Diabetes Mellitus Additional Family Medical History / Comment(s): mother is Father Family Medical History: No Reported History Additional Family Medical History / Comment(s): Father is healthy. General Exam Limitations: no limitations General appearance: alert, in no apparent distress Head exam: Present: atraumatic, normocephalic Eye exam: Present: normal appearance, EOMI ENT exam: Present: mucous membranes moist Neck exam: Present: other (Trachea is in midline) Respiratory exam: Present: normal lung sounds bilaterally. Absent: respiratory distress, wheezes, rales, rhonchi, stridor Cardiovascular Exam: Present: normal rhythm, tachycardia, normal heart sounds, other (Normal radial pulses bilaterally) GI/Abdominal exam: Present: soft, other (Moderate generalized abdominal tenderness). Absent: distended, guarding, rebound Extremities exam: Absent: tenderness, pedal edema, calf tenderness Neurological exam: Present: alert, oriented X3. Absent: motor sensory deficit Psychiatric exam: Present: normal affect, normal mood Skin exam: Present: warm, dry, intact, normal color Course Vital Signs 01/31/22 21:05 Temperature 98.0 F Pulse Rate 108 H Respiratory 18 Rate Blood Pressure 204/98 O2 Sat by Pulse 100 Oximetry - Reevaluation(s) Reevaluation #1: 01/31/22 22:51 Case, H&P, test results and ED management thus far were discussed with Dr. Farrar. She accepts hospital admission. She agrees with nephrology consultation. She has no further recommendations at this time. She states that she will place the patient on sliding scale insulin, and she agrees with not starting an insulin IV drip at this time given that the patient is not acidotic. 01/31/22 22:54 Patient states that his symptoms have improved with ED treatment. Patient d enies development of any new symptoms while in the ED. Patient is aware of his test results, and he agrees with hospital admission at this time. Medical Decision Making - Medical Decision Making Patient is hyperglycemic and acetone positive, but he has a normal pH on his ABG. Patient has been gently hydrated with a small IV fluid bolus given he has a dialysis patient. Patient was also given a bolus dose of IV regular insulin in the ED. Patient has a benign abdominal exam, and he had a fairly unremarkable CT abdomen/pelvis obtained yesterday when he presented with similar symptoms. I do not suspect an emergent or surgical abdominal issue. Will admit the patient to the hospital for continued symptom control and management of his hyperglycemia. Dr. Farrar has accepted hospital admission. - Lab Data Result diagrams: 01/31/22 21:10 01/31/22 21:10 Lab Results 01/31/22 01/31/22 01/31/22 Range/Units 21:10 21:10 21:24 WBC 6.5 (3.8-10.6) k/uL RBC 4.49 (4.30-5.90) m/uL Hgb 13.0 (13.0-17.5) gm/dL Hct 40.8 (39.0-53.0) % MCV 90.9 (80.0-100.0) fL MCH 29.0 (25.0-35.0) pg MCHC 31.9 (31.0-37.0) g/dL RDW 13.3 (11.5-15.5) % Plt Count 219 (150-450) k/uL MPV 7.7 Neutrophils % 74 % Lymphocytes % 15 % Monocytes % 8 % Eosinophils % 1 % Basophils % 1 % Neutrophils # 4.8 (1.3-7.7) k/uL Lymphocytes # 1.0 (1.0-4.8) k/uL Monocytes # 0.5 (0-1.0) k/uL Eosinophils # 0.1 (0-0.7) k/uL Basophils # 0.0 (0-0.2) k/uL VBG pH 7.39 (7.31-7.41) VBG pCO2 32 L (37-51) mmHg VBG HCO3 19 L (24-28) mmol/L Sodium 129 L (137-145) mmol/L Potassium 4.1 (3.5-5.1) mmol/L Chloride 89 L (98-107) mmol/L Carbon Dioxide 19 L (22-30) mmol/L Anion Gap 21 mmol/L BUN 30 H (9-20) mg/dL Creatinine 7.60 H* (0.66-1.25) mg/dL Est GFR (CKD-EPI)AfAm 9 (>60 ml/min/1.73 sqM) Est GFR (CKD-EPI)NonAf 7 (>60 ml/min/1.73 sqM) Glucose 634 H* (74-99) mg/dL Calcium 9.6 (8.4-10.2) mg/dL Magnesium 2.0 (1.6-2.3) mg/dL Total Bilirubin 0.7 (0.2-1.3) mg/dL AST 13 L (17-59) U/L ALT 10 (4-49) U/L Alkaline Phosphatase 161 H (38-126) U/L Total Protein 5.9 L (6.3-8.2) g/dL Albumin 3.8 (3.5-5.0) g/dL Lipase 94 (23-300) U/L Acetone, Qual Positive (Negative) Disposition Clinical Impression: Abdominal pain, Nausea and vomiting, Hyperglycemia, Chronic renal failure Disposition: ADMITTED IP TO THIS HOSP Condition: Stable Is patient prescribed a controlled substance at d/c from ED?: No Referrals: Cristi Mary MD [Primary Care Provider] - 1-2 days Time of Disposition: 22:58
[2022-01-31] MEDS ORDERED: HYDROmorphone 1 MG/ML 1 ML SYRINGE IVP STA (21:23)
[2022-01-31 21:38] LABS: ALT 10 U/L (4-49); AST 13 U/L (17-59); African American GFR (CKD) 9 (>60 ml/min/1.73 sqM); Albumin 3.8 g/dL (3.5-5.0); Alkaline Phosphatase 161 U/L (38-126); Anion Gap 21 mmol/L; Blood Urea Nitrogen 30 mg/dL (9-20); Calcium 9.6 mg/dL (8.4-10.2); Carbon Dioxide 19 mmol/L (22-30); Chloride 89 mmol/L (98-107); Lipase 94 U/L (23-300); Non-African American GFR(CKD) 7 (>60 ml/min/1.73 sqM); Potassium 4.1 mmol/L (3.5-5.1); Sodium 129 mmol/L (137-145); Total Bilirubin 0.7 mg/dL (0.2-1.3); Total Protein 5.9 g/dL (6.3-8.2)
[2022-01-31 21:49] LABS: Basophils % (A) 1 %; Eosinophils # (A) 0.1 k/uL (0-0.7); Eosinophils % (A) 1 %; HCT 40.8 % (39.0-53.0); Lymphocytes % (A) 15 %; MCHC 31.9 g/dL (31.0-37.0); MCV 90.9 fL (80.0-100.0); Mean Platelet Volume 7.7; Monocytes # (A) 0.5 k/uL (0-1.0); Monocytes % (A) 8 %; Neutrophils # (A) 4.8 k/uL (1.3-7.7); Neutrophils % (A) 74 %; Platelet Count 219 k/uL (150-450); RBC 4.49 m/uL (4.30-5.90); RDW 13.3 % (11.5-15.5); WBC 6.5 k/uL (3.8-10.6)
[2022-01-31 21:50] LABS: Glucose 634 mg/dL (74-99)
[2022-01-31 22:17] LABS: VBG PH 7.39 (7.31-7.41)
[2022-01-31] MEDS ORDERED: INSULIN REGULAR 100 UNIT/ML VIAL (IV) IV STA (22:36)
[2022-01-31] MEDS ORDERED: NALOXONE 0.4 MG/ML 1 ML VIAL IV PRN (23:01)
[2022-01-31] MEDS ORDERED: HYDROmorphone 1 MG/ML 1 ML SYRINGE IVP PRN (23:01)
[2022-01-31] MEDS ORDERED: ONDANSETRON 4 MG/2 ML VIAL IVP PRN (23:01)
[2022-01-31 23:22] LABS: Glucose,Whole Blood 561 mg/dL (70-110)
[2022-02-01 01:29] LABS: Glucose,Whole Blood 494 mg/dL (70-110)
[2022-02-01 01:50] LABS: Glucose,Whole Blood 485 mg/dL (70-110)
[2022-02-01] MEDS ORDERED: hydrALAZINE HCL 25 MG TAB PO STA (02:40)
[2022-02-01] MEDS: INSULIN ASPART (NovoLOG) 100 UNIT/ML VIAL SQ SCH ×5 (03:04→21:33)
[2022-02-01 06:04] LABS: Glucose,Whole Blood 219 mg/dL (70-110)
[2022-02-01 07:38] LABS: Basophils # (A) 0.1 k/uL (0-0.2); Basophils % (A) 1 %; Eosinophils # (A) 0.2 k/uL (0-0.7); Eosinophils % (A) 2 %; HCT 36.5 % (39.0-53.0); Lymphocytes # (A) 1.3 k/uL (1.0-4.8); Lymphocytes % (A) 17 %; MCH 28.9 pg (25.0-35.0); MCHC 32.9 g/dL (31.0-37.0); MCV 87.7 fL (80.0-100.0); Mean Platelet Volume 7.1; Monocytes # (A) 0.6 k/uL (0-1.0); Monocytes % (A) 7 %; Neutrophils # (A) 5.7 k/uL (1.3-7.7); Neutrophils % (A) 72 %; Platelet Count 190 k/uL (150-450); RBC 4.16 m/uL (4.30-5.90); RDW 12.9 % (11.5-15.5); WBC 7.9 k/uL (3.8-10.6)
[2022-02-01 07:55] LABS: Albumin 3.1 g/dL (3.5-5.0); Calcium 8.7 mg/dL (8.4-10.2); Potassium 3.5 mmol/L (3.5-5.1); Total Bilirubin 0.4 mg/dL (0.2-1.3); Total Protein 5.1 g/dL (6.3-8.2)
[2022-02-01] MEDS ORDERED: ONDANSETRON 4 MG TAB PO PRN (08:03)
--- NOTE | 2022-02-01 08:27 | P.HPIM ---
History of Present Illness H&P Date: 02/01/22 Chief Complaint: Chronic nausea and vomiting This is a 51-year-old white male well known to my practice who is noncompliant diabetic with end-stage renal disease related to diabetes. He's been complaining of chronic nausea and vomiting and has been in the ER several days. He states the day after he saw me in the office that he was fine but then for some unknown reason he was worsening in his symptomatology and is now readmitted. He said underlying history of end-stage renal disease with dialysis for the last 2 months. The patient has not admitted for symptom control. Nephrology is consulted. We will ask GI also to follow the patient if possible. Review of Systems Constitutional: Denies chills, Denies fever Eyes: denies blurred vision, denies pain Ears, nose, mouth and throat: Denies headache, Denies sore throat Cardiovascular: Denies chest pain, Denies shortness of breath Respiratory: Reports cough Gastrointestinal: Reports as per HPI, Reports nausea, Reports vomiting Musculoskeletal: Denies myalgias Past Medical History Past Medical History: Diabetes Mellitus, GERD/Reflux, Renal Disease Additional Past Medical History / Comment(s): IDDM type II, diabetic neuropathy bilateral feet, DKA, renal insufficiency, hypercalemia, past perianal abscess/fistula with surgery, BPH/urinary retention with surgery, UTI. self cath four times a day, dialysis Tues/thur/sat History of Any Multi-Drug Resistant Organisms: None Reported Past Surgical History: No Surgical Hx Reported Additional Past Surgical History / Comment(s): 08/2014 cystoscopy with TURP, rectal exam/I&D/fistulotomy. I&D back Past Anesthesia/Blood Transfusion Reactions: No Reported Reaction Past Psychological History: No Psychological Hx Reported Additional Psychological History / Comment(s): Pt lives alone. He works for [employer]. He states he does not drive and getting to appointments can be difficult. Smoking Status: Current every day smoker Past Alcohol Use History: None Reported Additional Past Alcohol Use History / Comment(s): Pt started smoking about 1987 and is a 2 ppd smoker. Past Drug Use History: None Reported - Past Family History Mother Family Medical History: Diabetes Mellitus Additional Family Medical History / Comment(s): mother is Father Family Medical History: No Reported History Additional Family Medical History / Comment(s): Father is healthy. Medications and Allergies Home Medications Medication Instructions Recorded Confirmed Type Insulin Aspart [NovoLOG Flexpen] See Protocol SQ AC-TID 07/09/19 02/01/22 History Insulin Degludec [Tresiba 70 units SQ HS 03/18/21 02/01/22 History Flextouch U-200 Pen] lisinopriL [Zestril] 40 mg PO HS 03/18/21 02/01/22 History Lansoprazole 30 mg PO DAILY 04/07/21 02/01/22 History Ondansetron [Zofran] 4 mg PO Q6H PRN 11/28/21 02/01/22 History Hyoscyamine Sulfate [Levbid] 0.375 mg PO Q12HR PRN 01/26/22 02/01/22 History Prochlorperazine [Compazine] 10 mg PO TID 01/26/22 02/01/22 History hydrALAZINE HCL [Apresoline] 100 mg PO TID 01/26/22 02/01/22 History Allergies Allergy/AdvReac Type Severity Reaction Status Date / Time No Known Allergies Allergy Verified 02/01/22 07:36 Physical Exam Vitals: Vital Signs Temp Pulse Pulse Resp BP BP Pulse Ox 02/01/22 03:33 97.8 F 79 16 179/84 97 02/01/22 01:22 85 16 172/93 96 02/01/22 00:00 98.2 F 90 16 202/93 97 01/31/22 21:05 98.0 F 108 H 18 204/98 100 Intake and Output 01/31/22 02/01/22 02/01/22 22:59 06:59 14:59 Intake Total 0 Balance 0 Intake: Oral 0 Other: Weight 81.647 kg 77.111 kg - Constitutional General appearance: no acute distress - EENT Eyes: EOMI - Neck Neck: no lymphadenopathy - Respiratory Respiratory: bilateral: wheezing - Cardiovascular Rhythm: regular Heart sounds: normal: S1, S2 Abnormal Heart Sounds: no S3 Gallop - Gastrointestinal General gastrointestinal: hyperactive bowel sounds, soft, no tenderness - Integumentary Integumentary: no cellulitis - Psychiatric Psychiatric: A&O x's 3 Results CBC & Chem 7: 02/01/22 07:03 02/01/22 07:03 Labs: Abnormal Lab Results - Last 24 Hours (Table) 01/31/22 01/31/22 01/31/22 Range/Units 21:10 21:24 23:19 RBC (4.30-5.90) m/uL Hgb (13.0-17.5) gm/dL Hct (39.0-53.0) % VBG pCO2 32 L (37-51) mmHg VBG HCO3 19 L (24-28) mmol/L Sodium 129 L (137-145) mmol/L Chloride 89 L (98-107) mmol/L Carbon Dioxide 19 L (22-30) mmol/L BUN 30 H (9-20) mg/dL Creatinine 7.60 H* (0.66-1.25) mg/dL Glucose 634 H* (74-99) mg/dL POC Glucose (mg/dL) 561 H (70-110) mg/dL AST 13 L (17-59) U/L Alkaline Phosphatase 161 H (38-126) U/L Total Protein 5.9 L (6.3-8.2) g/dL Albumin (3.5-5.0) g/dL 02/01/22 02/01/22 02/01/22 Range/Units 01:26 01:47 06:02 RBC (4.30-5.90) m/uL Hgb (13.0-17.5) gm/dL Hct (39.0-53.0) % VBG pCO2 (37-51) mmHg VBG HCO3 (24-28) mmol/L Sodium (137-145) mmol/L Chloride (98-107) mmol/L Carbon Dioxide (22-30) mmol/L BUN (9-20) mg/dL Creatinine (0.66-1.25) mg/dL Glucose (74-99) mg/dL POC Glucose (mg/dL) 494 H 485 H 219 H (70-110) mg/dL AST (17-59) U/L Alkaline Phosphatase (38-126) U/L Total Protein (6.3-8.2) g/dL Albumin (3.5-5.0) g/dL 02/01/22 02/01/22 Range/Units 07:03 07:03 RBC 4.16 L (4.30-5.90) m/uL Hgb 12.0 L (13.0-17.5) gm/dL Hct 36.5 L (39.0-53.0) % VBG pCO2 (37-51) mmHg VBG HCO3 (24-28) mmol/L Sodium 134 L (137-145) mmol/L Chloride 97 L (98-107) mmol/L Carbon Dioxide (22-30) mmol/L BUN 36 H (9-20) mg/dL Creatinine 7.22 H* (0.66-1.25) mg/dL Glucose 186 H (74-99) mg/dL POC Glucose (mg/dL) (70-110) mg/dL AST 11 L (17-59) U/L Alkaline Phosphatase (38-126) U/L Total Protein 5.1 L (6.3-8.2) g/dL Albumin 3.1 L (3.5-5.0) g/dL Thrombosis Risk Factor Assmnt - Choose All That Apply Any of the Below Risk Factors Present?: No Other Risk Factors: No Other congenital or acquired thrombophilia - If yes, enter type in comment: No Thrombosis Risk Factor Assessment Level: Very Low Risk Assessment and Plan (1) Abdominal pain Current Visit: Yes Status: Acute Code(s): R10.9 - UNSPECIFIED ABDOMINAL PAIN SNOMED Code(s): 02388293 (2) Chronic renal failure Current Visit: Yes Status: Acute Code(s): N18.9 - CHRONIC KIDNEY DISEASE, UNSPECIFIED SNOMED Code(s): 01943712 (3) Hyperglycemia Current Visit: Yes Status: Acute Code(s): R73.9 - HYPERGLYCEMIA, UNSPECIFIED SNOMED Code(s): 45401317 (4) Nausea and vomiting Current Visit: Yes Status: Acute Code(s): R11.2 - NAUSEA WITH VOMITING, UNSPECIFIED SNOMED Code(s): 18717074 (5) ESRD (end stage renal disease) on dialysis Current Visit: No Status: Acute Code(s): N18.6 - END STAGE RENAL DISEASE; Z99.2 - DEPENDENCE ON RENAL DIALYSIS SNOMED Code(s): 558718918 Plan: We will go ahead and start Reglan to see if that will alleviate his symptomatology. Check CBC and CMP in a.m. consult GI with nephrology. Advance diet as tolerated to controlled carbohydrate. GI prophylaxis has been started. The patient is a full code otherwise Time with Patient: Less than 30
[2022-02-01] MEDS: METOCLOPRAMIDE 5 MG/ML 2 ML VIAL IVP SCH ×3 (08:39→17:21)
[2022-02-01] MEDS: PANTOPRAZOLE 40 MG TABLET PO SCH (08:39)
[2022-02-01] MEDS: NICOTINE 21MG/24HR PATCH TRANSDERM SCH (08:39)
[2022-02-01] MEDS: hydrALAZINE HCL 50 MG TAB PO SCH ×3 (08:39→21:33)
[2022-02-01] MEDS: INSULIN DETEMIR (LEVEMIR) 100 UNIT/ML SYR SQ SCH ×2 (08:58→17:16)
[2022-02-01] MEDS ORDERED: PROCHLORPERAZINE 10 MG TAB PO SCH (09:00)
[2022-02-01 11:41] LABS: Glucose,Whole Blood 199 mg/dL (70-110)
--- NOTE | 2022-02-01 11:53 | P.NPCON ---
History of Present Illness - Reason for Consult end stage renal disease - History of Present Illness Patient is a 51-year-old male with hemodialysis dependent acute kidney injury on top of chronic kidney disease with no major recovery noted. Patient remains on hemodialysis on a Tuesday schedule. He has underlying obstructive uropathy with indwelling Sanchez catheter. Patient has had good urine output. His serum creatinine remains elevated at 5-7 mg/dL. Patient was admitted to the hospital with complaints of nausea, not feeling well and increased weakness. His blood sugar was significantly elevated in the 5-600 range. Serum acetone was positive. Anion gap decreased to 9 today. Blood sugar is about 1 80 mg/dL. Next Patient states he is feeling well. He was able to tolerate his breakfast this morning. No nausea currently. Review of Systems As per HPI, other systems negative. Past Medical History Past Medical History: Diabetes Mellitus, GERD/Reflux, Renal Disease Additional Past Medical History / Comment(s): IDDM type II, diabetic neuropathy bilateral feet, DKA, renal insufficiency, hypercalemia, past perianal abscess/fistula with surgery, BPH/urinary retention with surgery, UTI. self cath four times a day, dialysis //tue History of Any Multi-Drug Resistant Organisms: None Reported Past Surgical History: No Surgical Hx Reported Additional Past Surgical History / Comment(s): 08/2014 cystoscopy with TURP, rectal exam/I&D/fistulotomy. I&D back Past Anesthesia/Blood Transfusion Reactions: No Reported Reaction Past Psychological History: No Psychological Hx Reported Additional Psychological History / Comment(s): Pt lives alone. He works for [employer]. He states he does not drive and getting to appointments can be difficult. Smoking Status: Current every day smoker Past Alcohol Use History: None Reported Additional Past Alcohol Use History / Comment(s): Pt started smoking about 1987 and is a 2 ppd smoker. Past Drug Use History: None Reported - Past Family History Mother Family Medical History: Diabetes Mellitus Additional Family Medical History / Comment(s): mother is Father Family Medical History: No Reported History Additional Family Medical History / Comment(s): Father is healthy. Medications and Allergies Home Medications Medication Instructions Recorded Confirmed Type Insulin Aspart [NovoLOG Flexpen] See Protocol SQ AC-TID 07/09/19 02/01/22 History Insulin Degludec [Tresiba 70 units SQ HS 03/18/21 02/01/22 History Flextouch U-200 Pen] lisinopriL [Zestril] 40 mg PO HS 03/18/21 02/01/22 History Lansoprazole 30 mg PO DAILY 04/07/21 02/01/22 History Ondansetron [Zofran] 4 mg PO Q6H PRN 11/28/21 02/01/22 History Hyoscyamine Sulfate [Levbid] 0.375 mg PO Q12HR PRN 01/26/22 02/01/22 History Prochlorperazine [Compazine] 10 mg PO TID 01/26/22 02/01/22 History hydrALAZINE HCL [Apresoline] 100 mg PO TID 01/26/22 02/01/22 History carvediloL [Coreg] 6.25 mg PO BID 02/01/22 02/01/22 History Allergies Allergy/AdvReac Type Severity Reaction Status Date / Time No Known Allergies Allergy Verified 02/01/22 07:36 Physical Exam Vitals: Vital Signs Temp Pulse Pulse Pulse Resp BP BP 02/01/22 08:00 97.9 F 80 18 175/88 02/01/22 03:33 97.8 F 79 16 179/84 02/01/22 01:22 85 16 172/93 02/01/22 00:00 98.2 F 90 16 202/93 01/31/22 21:05 98.0 F 108 H 18 204/98 Pulse Ox 02/01/22 08:00 96 02/01/22 03:33 97 02/01/22 01:22 96 02/01/22 00:00 97 01/31/22 21:05 100 Intake and Output 01/31/22 02/01/22 02/01/22 22:59 06:59 14:59 Intake Total 0 Balance 0 Intake: Oral 0 Other: Weight 81.647 kg 77.111 kg Patient is awake, comfortable, not in any acute distress Examination of the heart S1 and S2 Examination of the lungs bilateral breath sounds are heard Abdomen is soft nontender Examination lower extremities shows no evidence of edema [employer] exam is grossly intact Results - Lab Results Most recent lab results Calcium 8.7 mg/dL (8.4-10.2) 02/01/22 07:03 Magnesium 2.0 mg/dL (1.6-2.3) 01/31/22 21:10 02/01/22 07:03 02/01/22 07:03 Assessment and Plan Assessment: 1. End-stage renal disease currently maintained on hemodialysis patient was started on dialysis recently for acute kidney injury and top of chronic kidney disease however he has not regained function and continues to be dialysis dependent with serum creatinine staying at 5-7 mg/dL. He does have good urine output and is currently self catheterizing for obstructive uropathy. Patient is maintained on a Tuesday schedule 2. DKA 3. Hypertension with CK D 4. Nausea and vomiting associated with hyperglycemia and DKA currently resolved Plan: Hemodialysis in a.m. Continue with protonix Possible discharge tomorrow
[2022-02-01 16:44] LABS: Glucose,Whole Blood 172 mg/dL (70-110)
[2022-02-01 20:11] LABS: Glucose,Whole Blood 299 mg/dL (70-110)
[2022-02-01] MEDS ORDERED: lisinopriL 20 MG TAB PO SCH (21:00)
[2022-02-01] MEDS ORDERED: INSULIN DETEMIR (LEVEMIR) 100 UNIT/ML SYR SQ SCH (21:00)
[2022-02-02] MEDS: METOCLOPRAMIDE 5 MG/ML 2 ML VIAL IVP SCH ×3 (00:12→11:59)
[2022-02-02 06:25] LABS: Glucose,Whole Blood 446 mg/dL (70-110)
[2022-02-02] MEDS: INSULIN ASPART (NovoLOG) 100 UNIT/ML VIAL SQ SCH ×2 (07:04→12:01)
--- NOTE | 2022-02-02 08:21 | P.DS ---
Providers Date of admission: 01/31/22 23:01 Attending physician: Cristi Mary Consults: 02/01/22 08:19 Consult Physician Routine Consulting Provider: Klarissa Williamson Consult Reason/Comments: ESRD/Dialysis Do you want consulting provider notified?: Yes 02/01/22 08:21 Consult Physician Routine Consulting Provider: Liat Ricks Consult Reason/Comments: Chronic nausea/vomiting. Diabetic gastropathy Do you want consulting provider notified?: Yes Primary care physician: Cristi Mary - Discharge Diagnosis(es) (1) Abdominal pain Current Visit: Yes Status: Acute (2) Chronic renal failure Current Visit: Yes Status: Acute (3) Hyperglycemia Current Visit: Yes Status: Acute (4) Nausea and vomiting Current Visit: Yes Status: Acute (5) ESRD (end stage renal disease) on dialysis Current Visit: No Status: Acute Hospital Course: This discharge summary 51-year-old white male essentially admitted for diabetic ketoacidosis dehydration and urinary retention. The patient stabilized but does do self-catheterization. The patient will go home after dialysis. Blood sugars been stabilized. Chronic nausea and vomiting which is most likely related to hyperglycemia has been stabilized. Patient Condition at Discharge: Stable Plan - Discharge Summary Discharge Rx Participant: No New Discharge Prescriptions: Continue Insulin Aspart [NovoLOG Flexpen] See Protocol SQ AC-TID lisinopriL [Zestril] 40 mg PO HS Insulin Degludec [Tresiba Flextouch U-200 Pen] 70 units SQ HS Hyoscyamine Sulfate [Levbid] 0.375 mg PO Q12HR PRN PRN Reason: CRAMPING Sertraline HCl [Zoloft] 25 mg PO DAILY Lansoprazole 30 mg PO DAILY Ondansetron [Zofran] 4 mg PO Q6H PRN PRN Reason: Nausea Prochlorperazine [Compazine] 10 mg PO TID hydrALAZINE HCL [Apresoline] 100 mg PO TID carvediloL [Coreg] 6.25 mg PO BID Ergocalciferol [Vitamin D2 (1250 Mcg = 99295 Iu)] 1,250 mcg PO WEEKLY Discharge Medication List Insulin Aspart [NovoLOG Flexpen] See Protocol SQ AC-TID 07/09/19 [History] Insulin Degludec [Tresiba Flextouch U-200 Pen] 70 units SQ HS 03/18/21 [History] lisinopriL [Zestril] 40 mg PO HS 03/18/21 [History] Lansoprazole 30 mg PO DAILY 04/07/21 [History] Ondansetron [Zofran] 4 mg PO Q6H PRN 11/28/21 [History] Hyoscyamine Sulfate [Levbid] 0.375 mg PO Q12HR PRN 01/26/22 [History] Prochlorperazine [Compazine] 10 mg PO TID 01/26/22 [History] hydrALAZINE HCL [Apresoline] 100 mg PO TID 01/26/22 [History] Ergocalciferol [Vitamin D2 (1250 Mcg = 22437 Iu)] 1,250 mcg PO WEEKLY 02/01/22 [History] Sertraline HCl [Zoloft] 25 mg PO DAILY 02/01/22 [History] carvediloL [Coreg] 6.25 mg PO BID 02/01/22 [History] Follow up Appointment(s)/Referral(s): Cristi Mary MD [Primary Care Provider] - 1-2 days Discharge Disposition: HOME SELF-CARE
[2022-02-02] MEDS: NICOTINE 21MG/24HR PATCH TRANSDERM SCH (09:04)
[2022-02-02] MEDS: hydrALAZINE HCL 50 MG TAB PO SCH (09:09)
[2022-02-02] MEDS: PANTOPRAZOLE 40 MG TABLET PO SCH (09:09)
[2022-02-02 09:21] LABS: Basophils % (A) 0 %; Eosinophils # (A) 0.2 k/uL (0-0.7); Eosinophils % (A) 2 %; HCT 37.1 % (39.0-53.0); HGB 11.8 gm/dL (13.0-17.5); Lymphocytes # (A) 0.9 k/uL (1.0-4.8); Lymphocytes % (A) 9 %; MCHC 31.7 g/dL (31.0-37.0); MCV 91.4 fL (80.0-100.0); Monocytes # (A) 0.4 k/uL (0-1.0); Monocytes % (A) 5 %; Neutrophils # (A) 7.6 k/uL (1.3-7.7); Neutrophils % (A) 83 %; Platelet Count 192 k/uL (150-450); RBC 4.06 m/uL (4.30-5.90); RDW 13.1 % (11.5-15.5); WBC 9.2 k/uL (3.8-10.6)
[2022-02-02 09:29] LABS: Calcium 8.1 mg/dL (8.4-10.2); Potassium 3.6 mmol/L (3.5-5.1); Total Bilirubin 0.4 mg/dL (0.2-1.3)
[2022-02-02 10:22] VITALS: RESP 18; TEMP 98.2
[2022-02-02 11:43] LABS: Glucose,Whole Blood 251 mg/dL (70-110)
[2022-02-02 12:02] VITALS: BP 126/63; PULSE 104
--- NOTE | 2022-02-02 12:08 | P.PN ---
Subjective Patient is seen on hemodialysis. He is tolerating his treatment well. Nursing staff had difficulty in straight catheterization last night. Patient states he will go home and perform the self cath at home No other complaints. Tolerating oral intake well. Objective - Vital Signs Vital signs: Vital Signs Temp 98.2 F 02/02/22 08:50 Pulse 104 H 02/02/22 12:00 Resp 18 02/02/22 12:00 BP 126/63 02/02/22 12:00 Pulse Ox 97 02/02/22 12:00 FiO2 Intake & Output 02/01/22 02/02/22 02/02/22 18:59 06:59 18:59 Intake Total 236 358 Output Total 50 Balance 236 -50 358 Intake: Oral 236 358 Output: Urine 50 Other: Voiding Method Self-Catheterization Self-Catheterization # Voids 1 - Labs CBC & Chem 7: 02/02/22 07:56 02/02/22 07:56 Labs: Abnormal Lab Results - Last 24 Hours (Table) 02/01/22 02/01/22 02/02/22 Range/Units 16:43 20:10 06:24 RBC (4.30-5.90) m/uL Hgb (13.0-17.5) gm/dL Hct (39.0-53.0) % Lymphocytes # (1.0-4.8) k/uL Sodium (137-145) mmol/L Chloride (98-107) mmol/L BUN (9-20) mg/dL Creatinine (0.66-1.25) mg/dL Glucose (74-99) mg/dL POC Glucose (mg/dL) 172 H 299 H 446 H (70-110) mg/dL Calcium (8.4-10.2) mg/dL Alkaline Phosphatase (38-126) U/L Total Protein (6.3-8.2) g/dL Albumin (3.5-5.0) g/dL 02/02/22 02/02/22 02/02/22 Range/Units 07:56 07:56 11:42 RBC 4.06 L (4.30-5.90) m/uL Hgb 11.8 L (13.0-17.5) gm/dL Hct 37.1 L (39.0-53.0) % Lymphocytes # 0.9 L (1.0-4.8) k/uL Sodium 130 L (137-145) mmol/L Chloride 94 L (98-107) mmol/L BUN 42 H (9-20) mg/dL Creatinine 8.11 H* (0.66-1.25) mg/dL Glucose 459 H (74-99) mg/dL POC Glucose (mg/dL) 251 H (70-110) mg/dL Calcium 8.1 L (8.4-10.2) mg/dL Alkaline Phosphatase 146 H (38-126) U/L Total Protein 5.0 L (6.3-8.2) g/dL Albumin 3.0 L (3.5-5.0) g/dL
--- NOTE | 2022-02-02 12:11 | P.PN ---
Subjective Patient is seen on hemodialysis. He is tolerating his treatment well. Nursing staff had difficulty in straight catheterization last night. Patient states he will go home and perform the self cath at home No other complaints. Tolerating oral intake well. Objective - Vital Signs Vital signs: Vital Signs Temp 98.2 F 02/02/22 08:50 Pulse 104 H 02/02/22 12:00 Resp 18 02/02/22 12:00 BP 126/63 02/02/22 12:00 Pulse Ox 97 02/02/22 12:00 FiO2 Intake & Output 02/01/22 02/02/22 02/02/22 18:59 06:59 18:59 Intake Total 236 358 Output Total 50 Balance 236 -50 358 Intake: Oral 236 358 Output: Urine 50 Other: Voiding Method Self-Catheterization Self-Catheterization # Voids 1 - Exam Awake comfortable, not in any acute distress Examination of the heart S1 and S2 Examination lungs bilateral breath sounds are heard Abdomen is soft nontender Exertion lower extremities shows no significant edema [employer] exam grossly intact - Labs CBC & Chem 7: 02/02/22 07:56 02/02/22 07:56 Labs: Abnormal Lab Results - Last 24 Hours (Table) 02/01/22 02/01/22 02/02/22 Range/Units 16:43 20:10 06:24 RBC (4.30-5.90) m/uL Hgb (13.0-17.5) gm/dL Hct (39.0-53.0) % Lymphocytes # (1.0-4.8) k/uL Sodium (137-145) mmol/L Chloride (98-107) mmol/L BUN (9-20) mg/dL Creatinine (0.66-1.25) mg/dL Glucose (74-99) mg/dL POC Glucose (mg/dL) 172 H 299 H 446 H (70-110) mg/dL Calcium (8.4-10.2) mg/dL Alkaline Phosphatase (38-126) U/L Total Protein (6.3-8.2) g/dL Albumin (3.5-5.0) g/dL 02/02/22 02/02/22 02/02/22 Range/Units 07:56 07:56 11:42 RBC 4.06 L (4.30-5.90) m/uL Hgb 11.8 L (13.0-17.5) gm/dL Hct 37.1 L (39.0-53.0) % Lymphocytes # 0.9 L (1.0-4.8) k/uL Sodium 130 L (137-145) mmol/L Chloride 94 L (98-107) mmol/L BUN 42 H (9-20) mg/dL Creatinine 8.11 H* (0.66-1.25) mg/dL Glucose 459 H (74-99) mg/dL POC Glucose (mg/dL) 251 H (70-110) mg/dL Calcium 8.1 L (8.4-10.2) mg/dL Alkaline Phosphatase 146 H (38-126) U/L Total Protein 5.0 L (6.3-8.2) g/dL Albumin 3.0 L (3.5-5.0) g/dL Assessment and Plan Assessment: 1. End-stage renal disease currently maintained on hemodialysis patient was started on dialysis recently for acute kidney injury and top of chronic kidney disease however he has not regained function and continues to be dialysis dependent with serum creatinine staying at 5-7 mg/dL. He does have good urine output and is currently self catheterizing for obstructive uropathy. Patient is maintained on a Tuesday schedule 2. DKA, improved 3. Hypertension with CK D 4. Nausea and vomiting associated with hyperglycemia and DKA currently resolved Plan: Patient is advised to perform self-catheterization at home as soon as he reaches home. He is being discharged today after dialysis.
== END 2022-02-02 13:39 | disposition home or self-care (01) | DRG 637 ==
LOC: EC 20:55 → 3SCARD 23:01
PROVIDERS: ADMIT Family Medicine; ATTEND Family Medicine
PROC: 5A1D70Z Performance of Urinary Filtration, Intermittent, Less than 6 Hours Per Day (ICD-10-PCS; principal; 2022-02-02)
DX: E11.10 Type 2 diabetes mellitus with ketoacidosis without coma (principal); N18.6 End stage renal disease; I12.0 Hypertensive chronic kidney disease with stage 5 chronic kidney disease or end stage renal disease; N17.9 Acute kidney failure, unspecified; E11.22 Type 2 diabetes mellitus with diabetic chronic kidney disease; E11.40 Type 2 diabetes mellitus with diabetic neuropathy, unspecified; Z99.2 Dependence on renal dialysis; Z79.4 Long term (current) use of insulin; E86.0 Dehydration; N13.9 Obstructive and reflux uropathy, unspecified; K31.9 Disease of stomach and duodenum, unspecified; K21.9 Gastro-esophageal reflux disease without esophagitis; Z91.19 Patient's noncompliance with other medical treatment and regimen; F17.210 Nicotine dependence, cigarettes, uncomplicated; Z71.6 Tobacco abuse counseling; Z79.899 Other long term (current) drug therapy; Z60.2 Problems related to living alone; Z83.3 Family history of diabetes mellitus
CPT/HCPCS: 36415; 80053; 82009; 82803; 83690; 83735; 85025; 96361; 96374; 96375; 99285

== ENCOUNTER 2022-02-03 11:17 | Inpatient (IN) | payer OTHER ==
[2022-02-03 11:35] LABS: Glucose,Whole Blood >600 mg/dL (70-110)
[2022-02-03 11:56] LABS: ABG Hematocrit 34 % (34.0-46.0); ABG Oxygen Saturation 98.8 % (94-97); ABG PO2 156 mmHg (83-108)
[2022-02-03 11:58] LABS: ABG PCO2 <15 mmHg (35-45); ABG PH 7.01 (7.35-7.45)
[2022-02-03 12:00] LABS: Partial Thromboplastin Time 28.5 sec (22.0-30.0); Prothrombin Time 10.5 sec (9.0-12.0)
[2022-02-03 12:03] LABS: HCT 44.4 % (39.0-53.0); HGB 11.4 gm/dL (13.0-17.5); Hypochromasia Marked; MCH 28.9 pg (25.0-35.0); MCHC 25.7 g/dL (31.0-37.0); Macrocytosis Marked; Mean Platelet Volume 9.1; Platelet Count 298 k/uL (150-450); RBC 3.95 m/uL (4.30-5.90); RDW 12.7 % (11.5-15.5); WBC 12.3 k/uL (3.8-10.6)
[2022-02-03 12:08] LABS: MCV 112.5 fL (80.0-100.0)
[2022-02-03 12:19] LABS: ALT 14 U/L (4-49); AST 16 U/L (17-59); African American GFR (CKD) 9 (>60 ml/min/1.73 sqM); Albumin 3.8 g/dL (3.5-5.0); Alkaline Phosphatase 247 U/L (38-126); Blood Urea Nitrogen 47 mg/dL (9-20); Calcium 7.7 mg/dL (8.4-10.2); Non-African American GFR(CKD) 8 (>60 ml/min/1.73 sqM); Total Bilirubin 0.5 mg/dL (0.2-1.3); Total Protein 5.6 g/dL (6.3-8.2)
[2022-02-03 12:31] LABS: Carbon Dioxide <5 mmol/L (22-30); Chloride 71 mmol/L (98-107); Phosphorus 9.8 mg/dL (2.5-4.5); Potassium 8.3 mmol/L (3.5-5.1); Sodium 111 mmol/L (137-145)
[2022-02-03 12:36] LABS: Lymphocytes # (M) 0.86 k/uL (1.0-4.8); Monocytes # (M) 0.49 k/uL (0-1.0); Neutrophils # (M) 10.95 k/uL (1.3-7.7); Neutrophils % (M) 89 %; Nucleated Red Blood Cells 0 /100 WBC (0-0); Total Cells Counted 100
[2022-02-03] MEDS ORDERED: INSULIN REGULAR 100 UNIT/ML VIAL (IV) IV ONE (12:37)
[2022-02-03] MEDS ORDERED: ALBUTEROL NEB (CONC) 2.5 MG/0.5 ML INHALATION ONE (12:37)
[2022-02-03] MEDS ORDERED: CALCIUM GLUCONATE IN NACL 1 GM in SALINE 1 100ML.BAG IVPB ONE ×2 (12:37→15:28)
[2022-02-03] MEDS ORDERED: SODIUM BICARB 8.4% 50 ML SYR (1 MEQ/ML) IV ONE (12:37)
[2022-02-03] MEDS ORDERED: SODIUM CHLORIDE 0.9% 500 ML 500 ML IV ONE (12:44)
[2022-02-03 12:48] LABS: Glucose 1770 mg/dL (74-99)
--- NOTE | 2022-02-03 13:15 | ED ---
General Adult HPI - General Chief complaint: Recheck/Abnormal Lab/Rx Stated complaint: AMS Time Seen by Provider: 02/03/22 11:17 Source: patient, EMS, RN notes reviewed Mode of arrival: EMS Limitations: no limitations - History of Present Illness Initial comments: 51-year-old male present emergency department via EMS with chief complaint of altered mental status, hyperglycemia. Patient was recently discharged the hospital and was discharged home and patient has not been compliant with treatment. Patient has not completed his dialysis as he is on Tuesday schedule. Patient is not taking recent insulin. Patient's found crawling around his hotel by family. Patient is very confused will not provide much information at this time he denies chest pain denies feeling short of breath he does admit that he has been eating poorly and has not use any insulin. - Related Data Home Medications Medication Instructions Recorded Confirmed Insulin Aspart [NovoLOG Flexpen] See Protocol SQ AC-TID 07/09/19 02/03/22 Insulin Degludec [Tresiba 70 units SQ HS 03/18/21 02/03/22 Flextouch U-200 Pen] lisinopriL [Zestril] 40 mg PO HS 03/18/21 02/03/22 Lansoprazole 30 mg PO DAILY 04/07/21 02/03/22 Ondansetron [Zofran] 4 mg PO Q6H PRN 11/28/21 02/03/22 Hyoscyamine Sulfate [Levbid] 0.375 mg PO Q12HR PRN 01/26/22 02/03/22 Prochlorperazine [Compazine] 10 mg PO TID 01/26/22 02/03/22 hydrALAZINE HCL [Apresoline] 100 mg PO TID 01/26/22 02/03/22 Ergocalciferol [Vitamin D2 (1250 1,250 mcg PO WEEKLY 02/01/22 02/03/22 Mcg = 15275 Iu)] Sertraline HCl [Zoloft] 25 mg PO DAILY 02/01/22 02/03/22 carvediloL [Coreg] 6.25 mg PO BID 02/01/22 02/03/22 Allergies Allergy/AdvReac Type Severity Reaction Status Date / Time No Known Allergies Allergy Verified 02/03/22 12:46 Review of Systems ROS Statement: Those systems with pertinent positive or pertinent negative responses have been documented in the HPI. ROS Other: All systems not noted in ROS Statement are negative. Past Medical History Past Medical History: Diabetes Mellitus, GERD/Reflux, Renal Disease Additional Past Medical History / Comment(s): IDDM type II, diabetic neuropathy bilateral feet, DKA, renal insufficiency, hypercalemia, past perianal abscess/fistula with surgery, BPH/urinary retention with surgery, UTI. self cath four times a day, dialysis Tues/thur/sat History of Any Multi-Drug Resistant Organisms: None Reported Past Surgical History: No Surgical Hx Reported Additional Past Surgical History / Comment(s): 08/2014 cystoscopy with TURP, rectal exam/I&D/fistulotomy. I&D back Past Anesthesia/Blood Transfusion Reactions: No Reported Reaction Past Psychological History: No Psychological Hx Reported Smoking Status: Current every day smoker Past Alcohol Use History: None Reported Past Drug Use History: None Reported - Past Family History Mother Family Medical History: Diabetes Mellitus Additional Family Medical History / Comment(s): mother is Father Family Medical History: No Reported History Additional Family Medical History / Comment(s): Father is healthy. General Exam Limitations: altered mental status General appearance: alert, in no apparent distress Head exam: Present: atraumatic, normocephalic, normal inspection Eye exam: Present: normal appearance, PERRL, EOMI. Absent: scleral icterus, conjunctival injection, periorbital swelling ENT exam: Present: normal exam, normal oropharynx, mucous membranes moist Neck exam: Present: normal inspection, full ROM. Absent: tenderness, meningismus, lymphadenopathy Respiratory exam: Present: respiratory distress (Mild, tachypnea). Absent: normal lung sounds bilaterally, wheezes, rales, rhonchi, stridor Cardiovascular Exam: Present: normal rhythm, tachycardia, normal heart sounds. Absent: systolic murmur, diastolic murmur, rubs, gallop, clicks GI/Abdominal exam: Present: soft, normal bowel sounds. Absent: distended, tenderness, guarding, rebound, rigid Neurological exam: Present: alert. Absent: oriented X3 Skin exam: Present: warm, dry, intact, normal color. Absent: rash Course Vital Signs 02/03/22 02/03/22 02/03/22 11:25 12:00 12:30 Temperature 97.3 F L Pulse Rate 105 H Respiratory 26 H Rate Blood Pressure 120/53 134/39 98/48 O2 Sat by Pulse 100 99 96 Oximetry 02/03/22 02/03/22 02/03/22 12:40 12:50 13:00 Temperature Pulse Rate 206 H Respiratory Rate Blood Pressure 60/21 101/53 101/53 O2 Sat by Pulse 97 97 98 Oximetry 02/03/22 02/03/22 02/03/22 13:10 13:20 13:30 Temperature Pulse Rate 200 H 189 H 129 H Respiratory Rate Blood Pressure 96/48 96/48 97/49 O2 Sat by Pulse 99 100 99 Oximetry 02/03/22 02/03/22 02/03/22 13:36 13:40 13:46 Temperature Pulse Rate 70 156 H 72 Respiratory 22 24 Rate Blood Pressure 87/43 O2 Sat by Pulse 99 Oximetry Medical Decision Making - Medical Decision Making 51-year-old male presented to [facility] from for hyperglycemia altered mental status. Patient's found to be in DKA, Glucose is 1770, sodium is 111, potassium 3.3 chloride 71, CO2 was less than 5 ABG was obtained which showed pH of 7.01, patient has fractures 9.8, elevated troponin though no complaint of chest pain. Patient chest x-ray does not show significant pulmonary edema I did discuss case with Dr. Williamson patient will receive dialysis patient be admitted to ICU for hyponatremia, DKA fluid resuscitation, insulin drip, dialysis and close monitoring. - Lab Data Result diagrams: 02/03/22 11:40 02/03/22 13:35 Lab Results 02/03/22 02/03/22 02/03/22 Range/Units 11:24 11:40 11:40 WBC 12.3 H (3.8-10.6) k/uL RBC 3.95 L (4.30-5.90) m/uL Hgb 11.4 L (13.0-17.5) gm/dL Hct 44.4 (39.0-53.0) % MCV 112.5 H D (80.0-100.0) fL MCH 28.9 (25.0-35.0) pg MCHC 25.7 L (31.0-37.0) g/dL RDW 12.7 (11.5-15.5) % Plt Count 298 (150-450) k/uL MPV 9.1 Neutrophils % (Manual) 89 % Lymphocytes % (Manual) 7 % Monocytes % (Manual) 4 % Neutrophils # (Manual) 10.95 H (1.3-7.7) k/uL Lymphocytes # (Manual) 0.86 L (1.0-4.8) k/uL Monocytes # (Manual) 0.49 (0-1.0) k/uL Nucleated RBCs 0 (0-0) /100 WBC Manual Slide Review Performed Hypochromasia Marked Macrocytosis Marked A PT 10.5 (9.0-12.0) sec INR 1.0 (<1.2) APTT 28.5 (22.0-30.0) sec Sample Site ABG pH (7.35-7.45) ABG pCO2 (35-45) mmHg ABG pO2 (83-108) mmHg ABG O2 Saturation (94-97) % ABG Hematocrit (34.0-46.0) % Moy Test Hemoglobin (13.0-17.5) gm/dL FiO2 % Sodium (137-145) mmol/L Potassium (3.5-5.1) mmol/L Chloride (98-107) mmol/L Carbon Dioxide (22-30) mmol/L Anion Gap mmol/L BUN (9-20) mg/dL Creatinine (0.66-1.25) mg/dL Est GFR (CKD-EPI)AfAm (>60 ml/min/1.73 sqM) Est GFR (CKD-EPI)NonAf (>60 ml/min/1.73 sqM) Glucose (74-99) mg/dL POC Glucose (mg/dL) >600 H (70-110) mg/dL POC Glu Platemaker ID October, Calcium (8.4-10.2) mg/dL Phosphorus (2.5-4.5) mg/dL Magnesium (1.6-2.3) mg/dL Total Bilirubin (0.2-1.3) mg/dL AST (17-59) U/L ALT (4-49) U/L Alkaline Phosphatase (38-126) U/L Troponin I (0.000-0.034) ng/mL Total Protein (6.3-8.2) g/dL Albumin (3.5-5.0) g/dL 0902/03/22 02/03/22 Range/Units 11:40 11:50 11:53 WBC (3.8-10.6) k/uL RBC (4.30-5.90) m/uL Hgb (13.0-17.5) gm/dL Hct (39.0-53.0) % MCV (80.0-100.0) fL MCH (25.0-35.0) pg MCHC (31.0-37.0) g/dL RDW (11.5-15.5) % Plt Count (150-450) k/uL MPV Neutrophils % (Manual) % Lymphocytes % (Manual) % Monocytes % (Manual) % Neutrophils # (Manual) (1.3-7.7) k/uL Lymphocytes # (Manual) (1.0-4.8) k/uL Monocytes # (Manual) (0-1.0) k/uL Nucleated RBCs (0-0) /100 WBC Manual Slide Review Hypochromasia Macrocytosis PT (9.0-12.0) sec INR (<1.2) APTT (22.0-30.0) sec Sample Site r brach ABG pH 7.01 L* (7.35-7.45) ABG pCO2 <15 L* (35-45) mmHg ABG pO2 156 H (83-108) mmHg ABG O2 Saturation 98.8 H (94-97) % ABG Hematocrit 34 (34.0-46.0) % Moy Test na Hemoglobin 11.1 L (13.0-17.5) gm/dL FiO2 28 % Sodium 111 L* (137-145) mmol/L Potassium 8.3 H* (3.5-5.1) mmol/L Chloride 71 L* (98-107) mmol/L Carbon Dioxide <5 L* (22-30) mmol/L Anion Gap mmol/L BUN 47 H (9-20) mg/dL Creatinine 7.24 H* (0.66-1.25) mg/dL Est GFR (CKD-EPI)AfAm 9 (>60 ml/min/1.73 sqM) Est GFR (CKD-EPI)NonAf 8 (>60 ml/min/1.73 sqM) Glucose 1770 H* (74-99) mg/dL POC Glucose (mg/dL) (70-110) mg/dL POC Glu Platemaker ID Calcium 7.7 L (8.4-10.2) mg/dL Phosphorus 9.8 H* (2.5-4.5) mg/dL Magnesium 2.0 (1.6-2.3) mg/dL Total Bilirubin 0.5 (0.2-1.3) mg/dL AST 16 L (17-59) U/L ALT 14 (4-49) U/L Alkaline Phosphatase 247 H (38-126) U/L Troponin I 0.139 H* (0.000-0.034) ng/mL Total Protein 5.6 L (6.3-8.2) g/dL Albumin 3.8 (3.5-5.0) g/dL Critical Care Time Critical Care Time: Yes Total Critical Care Time: 70 Disposition Clinical Impression: Diabetic ketoacidosis, Hyperkalemia, Hyperglycemia, ESRD on dialysis, Dialysis patient, noncompliant, Hyperphosphatemia Disposition: ADMITTED IP TO THIS HOSP Condition: Critical Time of Disposition: 13:16
[2022-02-03] MEDS ORDERED: SODIUM CHLORIDE 0.9% 1,000 ML IV ONE ×2 (13:24→15:13)
[2022-02-03] MEDS ORDERED: METOPROLOL TARTRATE 5 MG/5 ML VIAL IVP STA (13:24)
[2022-02-03] MEDS: INSULIN REGULAR 100 UNIT in SODIUM CHLORIDE 0.9% 100 ML IV SCH ×2 (13:34→23:13)
--- NOTE | 2022-02-03 13:37 | XR ---
EXAMINATION TYPE: XR chest 1V portable DATE OF EXAM: 02/03/2022 COMPARISON: Chest x-ray 01/30/2022 HISTORY: Altered mental status, shortness of breath TECHNIQUE: Single frontal view of the chest is obtained. FINDINGS: Right jugular central venous catheter is present in the distal tip in the right atrium. No evident pneumothorax or pleural effusion. Cardiomediastinal silhouette is stable accounting for diff erences in technique. There are overlying artifacts. IMPRESSION: No acute process.
[2022-02-03] MEDS: SODIUM CHLORIDE 0.9% 1,000 ML IV SCH ×2 (14:28→23:40)
[2022-02-03 14:34] LABS: Appearance,Urine Clear (Clear); Bacteria,Urine Occasional /hpf; Bilirubin,Urine Negative (Negative); Blood,Urine Large (Negative); Color,Urine Light Yellow; Glucose,Urine (UA) 4+ (Negative); Leukocyte Esterase,Urine Small (Negative); Nitrite,Urine Negative (Negative); Protein,Urine 4+ (Negative); RBC,Urine 10 /hpf (0-5); Specific Gravity,Urine 1.016 (1.001-1.035); Urobilinogen,Urine <2.0 mg/dL (<2.0); WBC,Urine 71 /hpf (0-5)
[2022-02-03 14:46] LABS: Glucose,Whole Blood >600 mg/dL (70-110)
[2022-02-03] MEDS ORDERED: SODIUM BICARB 8.4% 50 ML SYR (1 MEQ/ML) IV STA ×2 (15:12→15:23)
[2022-02-03 15:20] LABS: Ketones,Urine 2+ (Negative)
--- NOTE | 2022-02-03 15:23 | P.CNPUL ---
History of Present Illness Consult date: 02/03/22 Chief complaint: altered mental status History of present illness: 51-year-old male patient with an incisional disease was currently admitted to the hospital because of altered mentation and hyperglycemia and DKA. The patient was discharged from the hospital recently and he was discharged home. The patient was supposed to continue his hemodialysis as outpatient basis Tuesdays and Saturdays. I think is an issue with compliance. The patient apparently was not taking his insulin recently. He was found crawling around and a hotel by family. The patient was confused and he was unable to provide much history. Denies having any chest pain. Denies having any shortness of breath. He apparently has been eating poorly and he was not using any of his medication. For that reason, the patient was brought into the emergency. He was afebrile. He was slightly tachycardic. His BP was 120/53. His initial blood gas showed a pH of 7.01 with a pCO2 less than 15 and a pO2 of 156. His rest of the blood work showed a white cell count of 12.3 with a hemoglobin of 11.4 and a platelet count of 298. His sodium level was 111 potass ium level was at 7.8 chloride was 71 serum bicarbonate was less than 5, a BUN of 47 with a creatinine of 7.25 and a glucose level of 1770 with a phosphorus level of 9.8 and a calcium level of 7.7. LFTs were normal, troponin was at 0.139 with a total protein of 5.6 and albumin of 3.8. At that point, the patient was admitted to the intensive care unit for treatment of DKA. In the emergency, the patient was started on insulin drip. He was given insulin bolus in the emergency and following that he was started on insulin drip which is currently running at 5 units an hour and this will be adjusted based on his DKA protocol. Most recent blood sugar is at 600 and above. The patient has a Sanchez catheter in place. Urine output is minimal and order 100 mL his since he arrived to the intensive care unit. He is also on IV fluids at 75 mL an hour of normal saline. The patient was given fluids in the emergency, a total of 1 L bolus only. He does have a permacath over the right IJ. Chest x-ray was done in the emergency department showed no acute abnormalities. The hyperkalemia was treated in the emergency with calcium gluconate, bicarb and 10 units of regular insulin and a repeat potassium level is currently at 7.8. Review of Systems ROS unobtainable: due to mental status Past Medical History Past Medical History: Diabetes Mellitus, GERD/Reflux, Renal Disease Additional Past Medical History / Comment(s): IDDM type II, diabetic neuropathy bilateral feet, DKA, ESRD on HD, past perianal abscess/fistula with surgery, BPH/urinary retention with surgery, UTI. self cath four times a day, dialysis Tues/thur/sat History of Any Multi-Drug Resistant Organisms: None Reported Past Surgical History: No Surgical Hx Reported Additional Past Surgical History / Comment(s): 08/2014 cystoscopy with TURP, rectal exam/I&D/fistulotomy. I&D back Past Anesthesia/Blood Transfusion Reactions: No Reported Reaction Past Psychological History: No Psychological Hx Reported Smoking Status: Current every day smoker Past Alcohol Use History: None Reported Past Drug Use History: None Reported - Past Family History Mother Family Medical History: Diabetes Mellitus Additional Family Medical History / Comment(s): mother is Father Family Medical History: No Reported History Additional Family Medical History / Comment(s): Father is healthy. Medications and Allergies Home Medications Medication Instructions Recorded Confirmed Type Insulin Aspart [NovoLOG Flexpen] See Protocol SQ AC-TID 07/09/19 02/03/22 History Insulin Degludec [Tresiba 70 units SQ HS 03/18/21 02/03/22 History Flextouch U-200 Pen] lisinopriL [Zestril] 40 mg PO HS 03/18/21 02/03/22 History Lansoprazole 30 mg PO DAILY 04/07/21 02/03/22 History Ondansetron [Zofran] 4 mg PO Q6H PRN 11/28/21 02/03/22 History Hyoscyamine Sulfate [Levbid] 0.375 mg PO Q12HR PRN 01/26/22 02/03/22 History Prochlorperazine [Compazine] 10 mg PO TID 01/26/22 02/03/22 History hydrALAZINE HCL [Apresoline] 100 mg PO TID 01/26/22 02/03/22 History Ergocalciferol [Vitamin D2 (1250 1,250 mcg PO WEEKLY 02/01/22 02/03/22 History Mcg = 31227 Iu)] Sertraline HCl [Zoloft] 25 mg PO DAILY 02/01/22 02/03/22 History carvediloL [Coreg] 6.25 mg PO BID 02/01/22 02/03/22 History Allergies Allergy/AdvReac Type Severity Reaction Status Date / Time No Known Allergies Allergy Verified 02/03/22 12:46 Physical Exam Vitals: Vital Signs Temp Pulse Resp BP Pulse Ox 02/03/22 14:29 96 22 110/55 98 02/03/22 13:46 72 24 02/03/22 13:40 156 H 87/43 99 02/03/22 13:36 70 22 02/03/22 13:30 129 H 97/49 99 02/03/22 13:20 189 H 96/48 100 02/03/22 13:10 200 H 96/48 99 02/03/22 13:00 101/53 98 02/03/22 12:50 101/53 97 02/03/22 12:40 206 H 60/21 97 02/03/22 12:30 98/48 96 02/03/22 12:00 134/39 99 02/03/22 11:25 97.3 F L 105 H 26 H 120/53 100 Intake and Output 02/03/22 02/03/22 02/03/22 06:59 14:59 22:59 Intake Total 7.88 Balance 7.88 Intake: Intake, IV Titration 7.88 Amount Insulin Regular 100 unit 7.88 In Sodium Chloride 0.9% 100 ml @ 0.1 UNITS/KG/HR 5.498 mls/hr IV .[id number] [facility] Rx#:[id number] Other: Weight 54.431 kg This is a 51-year-old male in mild distress at the time of my examination. He is currently tachypneic with cause multifocal respiration. The patient is currently on 2 L O2 nasal cannula with a pulse ox of 99%. He is encephalopathic and his mental status is altered. Head exam was generally normal. There was no scleral icterus or corneal arcus. Mucous membranes were dry at this point in time. Neck was supple and without jugular venous distension, thyromegaly, or carotid bruits. Carotids were easily palpable bilaterally. There was no adenopathy. CHEST EXAMINATION: Lungs are clear to auscultation. No chest wall tenderness is noted on palpation or with deep breathing. HEART EXAMINATION: Cardiac exam revealed the PMI to be normally situated and sized. The rhythm was regular and no extrasystoles were noted during several minutes of auscultation. The first and second heart sounds were normal and physiologic splitting of the second heart sound was noted. There were no murmurs, rubs, clicks, or gallops. ABDOMEN: Soft, tender to palpation. Bowel sounds are heard. No organomegaly noted. EXTREMITIES: 2+ peripheral pulses with no evidence of peripheral edema and no calf tenderness noted. NEUROLOGIC EXAMINATION: Patient is withdraws to deep painful stimulation. He is encephalopathic and lethargic due to his underlying metabolic changes and metabolic encephalopathy. No facial asymmetry. Pupils are 3 mm in size, symmetric, sluggishly reactive to light. No nystagmus. No clonus. No Babinski's. Examination of the skin revealed no evidence of significant rashes, suspicious appearing nevi or other concerning lesions. The patient has a permacath over the right anterior chest area extending to his right IJ. Sanchez catheter is in place Results - Laboratory Findings CBC and BMP: 02/03/22 11:40 02/03/22 13:35 ABG ABG pH 7.01 (7.35-7.45) L* 02/03/22 11:53 ABG pCO2 <15 mmHg (35-45) L* 02/03/22 11:53 ABG pO2 156 mmHg (83-108) H 02/03/22 11:53 ABG O2 Saturation 98.8 % (94-97) H 02/03/22 11:53 PT/INR, D-dimer PT 10.5 sec (9.0-12.0) 02/03/22 11:40 INR 1.0 (<1.2) 02/03/22 11:40 Abnormal lab findings: Abnormal Labs 02/03/22 02/03/22 02/03/22 11:24 11:40 11:40 WBC 12.3 H RBC 3.95 L Hgb 11.4 L MCV 112.5 H D MCHC 25.7 L Neutrophils # (Manual) 10.95 H Lymphocytes # (Manual) 0.86 L Macrocytosis Marked A ABG pH ABG pCO2 ABG pO2 ABG O2 Saturation Hemoglobin Sodium 111 L* Potassium 8.3 H* Chloride 71 L* Carbon Dioxide <5 L* BUN 47 H Creatinine 7.24 H* Glucose 1770 H* POC Glucose (mg/dL) >600 H Calcium 7.7 L Phosphorus 9.8 H* AST 16 L Alkaline Phosphatase 247 H Troponin I Total Protein 5.6 L 02/03/22 02/03/22 02/03/22 11:50 11:53 13:35 WBC RBC Hgb MCV MCHC Neutrophils # (Manual) Lymphocytes # (Manual) Macrocytosis ABG pH 7.01 L* ABG pCO2 <15 L* ABG pO2 156 H ABG O2 Saturation 98.8 H Hemoglobin 11.1 L Sodium Potassium 7.8 H* Chloride Carbon Dioxide BUN Creatinine Glucose POC Glucose (mg/dL) Calcium Phosphorus AST Alkaline Phosphatase Troponin I 0.139 H* Total Protein 02/03/22 14:43 WBC RBC Hgb MCV MCHC Neutrophils # (Manual) Lymphocytes # (Manual) Macrocytosis ABG pH ABG pCO2 ABG pO2 ABG O2 Saturation Hemoglobin Sodium Potassium Chloride Carbon Dioxide BUN Creatinine Glucose POC Glucose (mg/dL) >600 H Calcium Phosphorus AST Alkaline Phosphatase Troponin I Total Protein - Diagnostic Findings Chest x-ray: image reviewed Assessment and Plan Plan: Acute DKA with severe anion gap metabolic acidosis Acute hyperkalemia with EKG changes, treated in the emergency was a potassium/hyperkalemia cocktail and the patient continues to have some hyperacute T waves at this point in time. The patient did have also a component of right bundle branch block pattern. The second hyperkalemia is related to hyperglycemia and incisional disease Acute pseudohyponatremia due to severe hyperglycemia Acute anion gap metabolic acidosis secondary to above Altered mentation secondary to above and this is most likely related to metabo lic encephalopathy in association with DKA Severe dehydration secondary to above End stage renal disease and the patient is medically on hemodialysis 3 times a week Tuesdays and Saturdays and the patient has a right chest permacath Obstructive uropathy and the patient undergoes self-catheterization and the Sanchez catheter in place and the urine output is diminished at this point in time the patient has chronic hydronephrosis and chronic urinary retention. The patient undergone previous TURP in August 2014. Hypertension BPH and obstructive uropathy Previous history of perianal abscess/fistula requiring fistulotomy an incision and drainage Poor compliance with medical treatment Troponin leak, secondary to above, troponins at 0.139 Previous history of melanoma Plan Give the patient immediate bolus of another liter of normal saline and maintain the patient on a normal saline infusion at the rate of 100 mL an hour maintenance Give the patient 2 Amp sodium bicarb 50 mEq each. Noted the patient was given calcium and the patient is currently on an insulin drip. Potassium level is down trending although the patient continues to have EKG changes with hyperacute T's. The patient will have a follow-up potassium level and we are in the process of getting ready to dialyze this patient. Continue insulin drip and adjust insulin drip dose based on the DKA protocol. Blood sugar remains above 600 Monitor electrolytes every 4 hours Monitor sodium level Monitor Anion gap Monitor monitor mental status Obtain urine drug screen Keep the Sanchez catheter in place Consult nephrology Proceed with hemodialysis We'll continue to follow. Condition is critical at this point in time.
[2022-02-03] MEDS ORDERED: DEXTROSE 5% IN WATER 1,000 ML with SODIUM BICARB (1 MEQ/ML) 150 ML IV SCH (15:30)
[2022-02-03 15:48] LABS: Calcium 7.3 mg/dL (8.4-10.2)
[2022-02-03 16:08] LABS: Potassium 7.4 mmol/L (3.5-5.1)
[2022-02-03 16:12] LABS: Glucose,Whole Blood >600 mg/dL (70-110)
[2022-02-03 17:07] LABS: Glucose,Whole Blood >600 mg/dL (70-110)
[2022-02-03 17:31] LABS: Phosphorus 8.6 mg/dL (2.5-4.5)
[2022-02-03 18:05] LABS: Glucose,Whole Blood >600 mg/dL (70-110)
[2022-02-03 19:14] LABS: Glucose,Whole Blood >600 mg/dL (70-110)
[2022-02-03 20:08] LABS: Glucose,Whole Blood >600 mg/dL (70-110)
[2022-02-03 21:02] LABS: Glucose,Whole Blood >600 mg/dL (70-110)
[2022-02-03 21:19] LABS: Potassium 3.5 mmol/L (3.5-5.1)
[2022-02-03 22:05] LABS: Glucose,Whole Blood 564 mg/dL (70-110)
[2022-02-03 23:09] LABS: Glucose,Whole Blood 500 mg/dL (70-110)
[2022-02-04 00:06] LABS: Glucose,Whole Blood 430 mg/dL (70-110)
[2022-02-04 01:06] LABS: Glucose,Whole Blood 391 mg/dL (70-110)
[2022-02-04 02:05] LABS: Glucose,Whole Blood 301 mg/dL (70-110)
[2022-02-04 03:03] LABS: Urine Alcohol Negative (Negative); Urine Barbiturate Negative (Negative); Urine Cocaine Negative (Negative); Urine Methadone Negative (Negative); Urine Opiates Negative (Negative); Urine Phencyclidine Negative (Negative)
[2022-02-04 03:06] LABS: Glucose,Whole Blood 197 mg/dL (70-110)
[2022-02-04 04:05] LABS: Glucose,Whole Blood 115 mg/dL (70-110)
[2022-02-04 05:05] LABS: Glucose,Whole Blood 53 mg/dL (70-110)
[2022-02-04] MEDS: DEXTROSE 50% SYRINGE 50 ML IVP ONE ×2 (05:11→05:57)
[2022-02-04 05:28] LABS: Glucose,Whole Blood 73 mg/dL (70-110)
[2022-02-04] MEDS: D5-0.45% NACL WITH KCL 20MEQ/L 1,000 ML IV SCH ×2 (05:45→12:18)
[2022-02-04 05:57] LABS: Glucose,Whole Blood 62 mg/dL (70-110)
[2022-02-04 06:15] LABS: Glucose,Whole Blood 94 mg/dL (70-110)
[2022-02-04 06:17] LABS: Basophils % (A) 0 %; Eosinophils # (A) 0.2 k/uL (0-0.7); Eosinophils % (A) 1 %; HCT 29.7 % (39.0-53.0); Lymphocytes # (A) 1.2 k/uL (1.0-4.8); Lymphocytes % (A) 8 %; MCH 28.9 pg (25.0-35.0); MCHC 33.9 g/dL (31.0-37.0); Mean Platelet Volume 7.7; Monocytes # (A) 1.2 k/uL (0-1.0); Monocytes % (A) 8 %; Neutrophils # (A) 12.6 k/uL (1.3-7.7); Neutrophils % (A) 81 %; Platelet Count 192 k/uL (150-450); RBC 3.47 m/uL (4.30-5.90); RDW 12.8 % (11.5-15.5); WBC 15.6 k/uL (3.8-10.6)
[2022-02-04 06:30] LABS: Calcium 7.7 mg/dL (8.4-10.2); Potassium 3.1 mmol/L (3.5-5.1)
[2022-02-04 06:36] LABS: MCV 85.4 fL (80.0-100.0)
[2022-02-04] MEDS ORDERED: Potassium Replacement Protocol 1 EACH MISC MISCELLANE PRN (06:49)
[2022-02-04 06:56] LABS: Glucose,Whole Blood 101 mg/dL (70-110)
[2022-02-04] MEDS: POTASSIUM CHLORIDE 10 MEQ in WATER FOR INJECTION 1 100ML.BAG IVPB SCH ×4 (07:18→16:30)
[2022-02-04 07:43] LABS: Glucose,Whole Blood 148 mg/dL (70-110)
[2022-02-04 08:19] LABS: Glucose,Whole Blood 157 mg/dL (70-110)
[2022-02-04] MEDS ORDERED: ONDANSETRON 4 MG TAB PO PRN (08:27)
--- NOTE | 2022-02-04 08:33 | XR ---
EXAMINATION TYPE: XR chest 1V DATE OF EXAM: 02/04/2022 COMPARISON: Chest x-ray 02/03/2022 HISTORY: Altered mental status, follow-up TECHNIQUE: Single frontal view of the chest is obtained. FINDINGS: There is no focal air space opacity, pleural effusion, or pneumothorax seen. The cardiac silhouette size is within normal limits. Right hemidiaphragm mildly elevated, patient is rotated. Th ere are overlying artifacts. Right jugular central venous catheter is stable with the distal tip in t he right atrium. The osseous structures are intact. IMPRESSION: No acute process.
[2022-02-04] MEDS: PANTOPRAZOLE 40 MG/10 ML VIAL IVP SCH (08:59)
[2022-02-04] MEDS: SERTRALINE 50 MG TAB PO SCH (09:00)
[2022-02-04] MEDS ORDERED: LANSOPRAZOLE 30 MG PO SCH (09:00)
[2022-02-04] MEDS: PROCHLORPERAZINE 10 MG TAB PO SCH ×2 (09:00→16:30)
[2022-02-04] MEDS: SODIUM CHLORIDE 0.9% 1,000 ML IV SCH (09:01)
[2022-02-04 09:10] LABS: Glucose,Whole Blood 113 mg/dL (70-110)
[2022-02-04] MEDS: INSULIN REGULAR 100 UNIT in SODIUM CHLORIDE 0.9% 100 ML IV SCH ×2 (09:11→12:28)
[2022-02-04 10:13] VITALS: BMI 28.3
[2022-02-04 11:06] LABS: Glucose,Whole Blood 98 mg/dL (70-110)
--- NOTE | 2022-02-04 11:49 | P.NPCON ---
History of Present Illness - Reason for Consult end stage renal disease - History of Present Illness Patient is a 51-year-old male with history of end-stage renal disease, recently started on hemodialysis for obstructive uropathy. Patient is maintained on a Tuesday schedule. He was admitted to the hospital with complaints of weakness. Patient was found to be in DKA with a potassium of 8, CO2 less than 5 and sodium of 111. Blood sugar was 1770 Patient was started on insulin drip. He was also dialyzed yesterday. Serum sodium came up to 1:15 and then 125 last night. Patient remains on insulin drip. Acidosis has been corrected and serum potassium is now at 3.1 mg/L. Patient is comfortable No reports of significant diarrhea or vomiting. Patient was hospitalized earlier this week at [facility] with DKA and discharged on Tuesday after dialysis in the hospital. At that time his blood sugar was under control and potassium was not elevated. Review of Systems As per HPI Past Medical History Past Medical History: Diabetes Mellitus, GERD/Reflux, Renal Disease Additional Past Medical History / Comment(s): IDDM type II, diabetic neuropathy bilateral feet, DKA, ESRD on HD, past perianal abscess/fistula with surgery, BPH/urinary retention with surgery, UTI. self cath four times a day, dialysis //tue History of Any Multi-Drug Resistant Organisms: None Reported Past Surgical History: No Surgical Hx Reported Additional Past Surgical History / Comment(s): 08/2014 cystoscopy with TURP, rectal exam/I&D/fistulotomy. I&D back Past Anesthesia/Blood Transfusion Reactions: No Reported Reaction Smoking Status: Current every day smoker - Past Family History Mother Family Medical History: Diabetes Mellitus Additional Family Medical History / Comment(s): mother is Father Family Medical History: No Reported History Additional Family Medical History / Comment(s): Father is healthy. Medications and Allergies Home Medications Medication Instructions Recorded Confirmed Type Insulin Aspart [NovoLOG Flexpen] See Protocol SQ AC-TID 07/09/19 02/03/22 History Insulin Degludec [Tresiba 70 units SQ HS 03/18/21 02/03/22 History Flextouch U-200 Pen] lisinopriL [Zestril] 40 mg PO HS 03/18/21 02/03/22 History Lansoprazole 30 mg PO DAILY 04/07/21 02/03/22 History Ondansetron [Zofran] 4 mg PO Q6H PRN 11/28/21 02/03/22 History Hyoscyamine Sulfate [Levbid] 0.375 mg PO Q12HR PRN 01/26/22 02/03/22 History Prochlorperazine [Compazine] 10 mg PO TID 01/26/22 02/03/22 History hydrALAZINE HCL [Apresoline] 100 mg PO TID 01/26/22 02/03/22 History Ergocalciferol [Vitamin D2 (1250 1,250 mcg PO WEEKLY 02/01/22 02/03/22 History Mcg = 91307 Iu)] Sertraline HCl [Zoloft] 25 mg PO DAILY 02/01/22 02/03/22 History carvediloL [Coreg] 6.25 mg PO BID 02/01/22 02/03/22 History Allergies Allergy/AdvReac Type Severity Reaction Status Date / Time No Known Allergies Allergy Verified 02/03/22 12:46 Physical Exam Vitals: Vital Signs Temp Pulse Resp BP Pulse Ox 02/04/22 11:00 87 14 172/88 98 02/04/22 10:00 96 12 166/95 98 02/04/22 09:00 91 11 L 144/74 100 02/04/22 08:00 97.7 F 92 9 L 127/58 100 02/04/22 07:49 99 02/04/22 07:00 91 16 139/70 100 02/04/22 06:00 87 16 139/70 100 02/04/22 05:00 93 16 120/51 98 02/04/22 04:00 98.8 F 99 16 120/51 99 02/04/22 03:00 93 13 130/64 97 02/04/22 02:00 91 18 122/67 100 02/04/22 01:00 92 15 141/72 99 02/04/22 00:00 98.9 F 98 20 149/72 98 02/03/22 23:00 95 14 147/62 98 02/03/22 22:30 106 H 20 132/65 99 02/03/22 22:00 98 16 136/67 99 02/03/22 21:30 100 18 128/60 98 02/03/22 21:00 98 13 133/65 98 02/03/22 20:30 100 15 128/65 98 02/03/22 20:00 98.6 F 94 12 124/58 99 02/03/22 19:00 102 H 14 121/59 98 02/03/22 18:45 101 H 17 98/72 98 02/03/22 18:30 98 15 92/59 98 02/03/22 18:15 85 16 100/57 98 02/03/22 18:00 87 15 105/60 99 02/03/22 17:45 85 14 105/55 99 02/03/22 17:30 84 15 106/61 99 02/03/22 17:15 84 15 110/57 99 02/03/22 17:00 84 15 109/68 99 02/03/22 16:45 86 14 120/60 99 02/03/22 16:30 86 15 117/58 99 02/03/22 16:15 86 16 114/57 99 02/03/22 16:00 96.5 F L 87 16 119/57 99 02/03/22 15:45 89 16 115/55 99 02/03/22 15:30 91 21 128/66 99 02/03/22 15:15 90 17 124/61 99 02/03/22 15:00 85 21 136/58 99 02/03/22 14:45 20 136/60 100 02/03/22 14:30 90 107/55 98 02/03/22 14:29 96 22 110/55 98 02/03/22 14:15 85 24 92/49 97 02/03/22 14:00 24 91/53 99 02/03/22 13:46 72 24 02/03/22 13:40 156 H 87/43 99 02/03/22 13:36 70 22 02/03/22 13:30 129 H 97/49 99 02/03/22 13:20 189 H 96/48 100 02/03/22 13:10 200 H 96/48 99 02/03/22 13:00 101/53 98 02/03/22 12:50 101/53 97 02/03/22 12:40 206 H 60/21 97 02/03/22 12:30 98/48 96 02/03/22 12:00 134/39 99 Intake and Output 02/03/22 02/04/22 02/04/22 22:59 06:59 14:59 Intake Total 2175.852 967.106 2030.320 Output Total 1550 265 90 Balance 625.852 430.310 6919.320 Intake: IV 1621 452 3855 Calcium Gluconate in NaCl 400 1 gm In Saline 1 100ml. bag @ 100 mls/hr IVPB ONCE [facility] Rx#:[id number] D5-0.45% NaCl with KCl 150 750 20Meq/l 1,000 ml @ 150 mls/hr IV .Q6H40M [facility] Rx# :[id number] Potassium Chloride 10 meq 300 In Water For Injection 1 100ml.bag @ 100 mls/hr IVPB Q1HR [facility] Rx#: [id number] Sodium Chloride 0.9% 1, 400 700 000 ml @ 100 mls/hr IV . Q10H [facility] Rx#:[id number] Sodium Chloride 0.9% 1, 1000 000 ml @ 999 mls/hr IV . Q1H1M [facility] Rx#:[id number] Intake, IV Titration 75.852 102.159 112.320 Amount Insulin Regular 100 unit 75.852 102.159 112.320 In Sodium Chloride 0.9% 100 ml @ 0.1 UNITS/KG/HR 5.498 mls/hr IV .[id number] [facility] Rx#:[id number] Hemodialysis 300 Output: Urine 550 265 90 Hemodialysis 1000 Other: Voiding Method Indwelling Catheter Indwelling Catheter Weight 54.431 kg 82 kg 82 kg Patient is comfortable he is sleeping but arousable Seen on dialysis Examination of the heart S1 and S2 Examination of the lungs bilateral breath sounds are heard Abdomen is soft nontender Examination of the lower extremities shows no evidence of edema Results - Lab Results Most recent lab results ABG pH 7.01 (7.35-7.45) L* 02/03/22 11:53 ABG pCO2 <15 mmHg (35-45) L* 02/03/22 11:53 ABG pO2 156 mmHg (83-108) H 02/03/22 11:53 ABG O2 Saturation 98.8 % (94-97) H 02/03/22 11:53 Calcium 7.7 mg/dL (8.4-10.2) L 02/04/22 05:48 Phosphorus 3.5 mg/dL (2.5-4.5) 02/03/22 20:34 Magnesium 2.0 mg/dL (1.6-2.3) 02/03/22 11:40 02/04/22 05:48 02/04/22 05:48 Assessment and Plan Assessment: 1. End-stage renal disease on hemodialysis on a Tuesday schedule 2. Severe hyperkalemia associated with DKA 3. Severe DKA currently maintained on insulin drip and improved. Acidosis is corrected significantly 4. Hyponatremia associated with severe hyperglycemia with blood sugar of 1770 currently improved with improvement in blood sugars as well as dialysis 5. History of obstructive uropathy requiring straight catheterization at home currently with indwelling Sanchez catheter with about 400 mL of urine obtained on initial Sanchez catheter placement this hospitalization. 6. Severe metabolic acidosis secondary to DKA Plan: Hemodialysis today with adjustment for hypokalemia on the potassium bath Resume home blood pressure medications Replace potassium cautiously Can DC IV fluids if patient is able to eat and insulin drip was discontinued. 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
[2022-02-04 11:57] LABS: Glucose,Whole Blood 124 mg/dL (70-110)
[2022-02-04] MEDS: hydrALAZINE HCL 50 MG TAB PO SCH ×3 (12:18→23:07)
[2022-02-04] MEDS: carvediloL 6.25 MG TAB PO SCH ×2 (12:18→16:41)
[2022-02-04] MEDS ORDERED: DEXTROSE 50% SYRINGE 50 ML IVP PRN ×2 (13:00)
[2022-02-04 13:55] LABS: Glucose,Whole Blood 293 mg/dL (70-110)
[2022-02-04 16:17] LABS: Glucose,Whole Blood 306 mg/dL (70-110)
[2022-02-04] MEDS: INSULIN ASPART (NovoLOG) 100 UNIT/ML VIAL SQ SCH ×2 (16:31→20:54)
[2022-02-04 20:46] LABS: Glucose,Whole Blood 183 mg/dL (70-110)
--- NOTE | 2022-02-04 20:47 | P.HPIM ---
History of Present Illness H&P Date: 02/04/22 Chief Complaint: Hyperglycemia This is a 51-year-old white male who was recently discharged for end-stage renal disease. The patient has had a history of obstructive uropathy and needs to self cath. He comes in after being discharged several days ago in hyperglycemic a DKA elements. The patient is quite weak appearing. He supposedly missed dialysis but has a history of noncompliance. Underlying history of hypertension. Our office is spent a considerable amount of time getting the patient up insulin pump which we procured remotely, however he stopped using it. There is difficulty getting his exchange sets and he became frustrated stopping the insulin pump. The patient is now admitted for diabetic ketoacidosis and renal failure. Review of Systems ROS unobtainable: due to mental status Past Medical History Past Medical History: Diabetes Mellitus, GERD/Reflux, Renal Disease Additional Past Medical History / Comment(s): IDDM type II, diabetic neuropathy bilateral feet, DKA, ESRD on HD, past perianal abscess/fistula with surgery, BPH/urinary retention with surgery, UTI. self cath four times a day, dialysis Tues/thur/sat History of Any Multi-Drug Resistant Organisms: None Reported Past Surgical History: No Surgical Hx Reported Additional Past Surgical History / Comment(s): 08/2014 cystoscopy with TURP, rectal exam/I&D/fistulotomy. I&D back Past Anesthesia/Blood Transfusion Reactions: No Reported Reaction Smoking Status: Current every day smoker - Past Family History Mother Family Medical History: Diabetes Mellitus Additional Family Medical History / Comment(s): mother is Father Family Medical History: No Reported History Additional Family Medical History / Comment(s): Father is healthy. Medications and Allergies Home Medications Medication Instructions Recorded Confirmed Type Insulin Aspart [NovoLOG Flexpen] See Protocol SQ AC-TID 07/09/19 02/03/22 History Insulin Degludec [Tresiba 70 units SQ HS 03/18/21 02/03/22 History Flextouch U-200 Pen] lisinopriL [Zestril] 40 mg PO HS 03/18/21 02/03/22 History Lansoprazole 30 mg PO DAILY 04/07/21 02/03/22 History Ondansetron [Zofran] 4 mg PO Q6H PRN 11/28/21 02/03/22 History Hyoscyamine Sulfate [Levbid] 0.375 mg PO Q12HR PRN 01/26/22 02/03/22 History Prochlorperazine [Compazine] 10 mg PO TID 01/26/22 02/03/22 History hydrALAZINE HCL [Apresoline] 100 mg PO TID 01/26/22 02/03/22 History Ergocalciferol [Vitamin D2 (1250 1,250 mcg PO WEEKLY 02/01/22 02/03/22 History Mcg = 66706 Iu)] Sertraline HCl [Zoloft] 25 mg PO DAILY 02/01/22 02/03/22 History carvediloL [Coreg] 6.25 mg PO BID 02/01/22 02/03/22 History Allergies Allergy/AdvReac Type Severity Reaction Status Date / Time No Known Allergies Allergy Verified 02/03/22 12:46 Physical Exam Vitals: Vital Signs Temp Pulse Pulse Resp BP BP Pulse Ox 02/04/22 19:00 80 12 113/62 02/04/22 18:00 84 14 124/86 97 02/04/22 17:00 93 16 179/99 98 02/04/22 16:00 97.6 F 86 11 L 161/81 98 02/04/22 15:00 82 8 L 158/89 98 02/04/22 14:00 84 14 152/75 97 02/04/22 13:00 101 H 5 L 140/50 98 02/04/22 12:41 98.0 F 95 19 144/85 02/04/22 12:00 98.4 F 90 8 L 159/78 99 02/04/22 11:00 87 14 172/88 98 02/04/22 10:00 96 12 166/95 98 02/04/22 09:00 91 11 L 144/74 100 02/04/22 08:00 97.7 F 92 9 L 127/58 100 02/04/22 07:49 99 02/04/22 07:00 91 16 139/70 100 02/04/22 06:00 87 16 139/70 100 02/04/22 05:00 93 16 120/51 98 02/04/22 04:00 98.8 F 99 16 120/51 99 02/04/22 03:00 93 13 130/64 97 02/04/22 02:00 91 18 122/67 100 02/04/22 01:00 92 15 141/72 99 02/04/22 00:00 98.9 F 98 20 149/72 98 02/03/22 23:00 95 14 147/62 98 02/03/22 22:30 106 H 20 132/65 99 02/03/22 22:00 98 16 136/67 99 02/03/22 21:30 100 18 128/60 98 02/03/22 21:00 98 13 133/65 98 Intake and Output 02/04/22 02/04/22 02/04/22 06:59 14:59 22:59 Intake Total 334.412 9969.320 750 Output Total 265 1110 340 Balance 074.219 9723.320 410 Intake: IV 850 1600 750 D5-0.45% NaCl with KCl 150 1200 750 20Meq/l 1,000 ml @ 150 mls/hr IV .Q6H40M [facility] Rx# :[id number] Potassium Chloride 10 meq 400 In Water For Injection 1 100ml.bag @ 100 mls/hr IVPB Q1HR [facility] Rx#: [id number] Sodium Chloride 0.9% 1, 700 000 ml @ 100 mls/hr IV . Q10H [facility] Rx#:[id number] Intake, IV Titration 102.159 112.320 Amount Insulin Regular 100 unit 102.159 112.320 In Sodium Chloride 0.9% 100 ml @ 0.1 UNITS/KG/HR 5.498 mls/hr IV .[id number] [facility] Rx#:[id number] Hemodialysis 500 Output: Urine 265 110 340 Hemodialysis 1000 Other: Voiding Method Indwelling Catheter Indwelling Catheter Indwelling Catheter # Bowel Movements 1 Weight 82 kg 82 kg - Constitutional General appearance: no acute distress - EENT Eyes: EOMI - Neck Neck: no lymphadenopathy - Respiratory Respiratory: right: rhonchi, left: CTA - Cardiovascular Rhythm: regular Heart sounds: normal: S1, S2 Abnormal Heart Sounds: no S3 Gallop - Gastrointestinal General gastrointestinal: scaphoid, soft, no tenderness - Integumentary Edematous. - Neurologic Neurologic: CNII-XII intact Results CBC & Chem 7: 02/04/22 05:48 02/04/22 05:48 Labs: Abnormal Lab Results - Last 24 Hours (Table) 02/03/22 02/03/2222 Range/Units 20:34 21:00 22:03 WBC (3.8-10.6) k/uL RBC (4.30-5.90) m/uL Hgb (13.0-17.5) gm/dL Hct (39.0-53.0) % Neutrophils # (1.3-7.7) k/uL Monocytes # (0-1.0) k/uL Sodium 125 L (137-145) mmol/L Potassium (3.5-5.1) mmol/L Chloride 88 L (98-107) mmol/L Carbon Dioxide 18 L (22-30) mmol/L BUN 34 H (9-20) mg/dL Creatinine 4.22 H (0.66-1.25) mg/dL Glucose 695 H* (74-99) mg/dL POC Glucose (mg/dL) >600 H 564 H (70-110) mg/dL Calcium (8.4-10.2) mg/dL 02/03/22 02/04/22 02/04/22 Range/Units 23:07 00:04 01:04 WBC (3.8-10.6) k/uL RBC (4.30-5.90) m/uL Hgb (13.0-17.5) gm/dL Hct (39.0-53.0) % Neutrophils # (1.3-7.7) k/uL Monocytes # (0-1.0) k/uL Sodium (137-145) mmol/L Potassium (3.5-5.1) mmol/L Chloride (98-107) mmol/L Carbon Dioxide (22-30) mmol/L BUN (9-20) mg/dL Creatinine (0.66-1.25) mg/dL Glucose (74-99) mg/dL POC Glucose (mg/dL) 500 H 430 H 391 H (70-110) mg/dL Calcium (8.4-10.2) mg/dL 02/04/22 02/04/22 02/04/22 Range/Units 02:03 03:04 04:03 WBC (3.8-10.6) k/uL RBC (4.30-5.90) m/uL Hgb (13.0-17.5) gm/dL Hct (39.0-53.0) % Neutrophils # (1.3-7.7) k/uL Monocytes # (0-1.0) k/uL Sodium (137-145) mmol/L Potassium (3.5-5.1) mmol/L Chloride (98-107) mmol/L Carbon Dioxide (22-30) mmol/L BUN (9-20) mg/dL Creatinine (0.66-1.25) mg/dL Glucose (74-99) mg/dL POC Glucose (mg/dL) 301 H 197 H 115 H (70-110) mg/dL Calcium (8.4-10.2) mg/dL 02/04/22 02/04/22 02/04/22 Range/Units 05:03 05:48 05:48 WBC 15.6 H (3.8-10.6) k/uL RBC 3.47 L (4.30-5.90) m/uL Hgb 10.0 L (13.0-17.5) gm/dL Hct 29.7 L (39.0-53.0) % Neutrophils # 12.6 H (1.3-7.7) k/uL Monocytes # 1.2 H (0-1.0) k/uL Sodium 131 L (137-145) mmol/L Potassium 3.1 L (3.5-5.1) mmol/L Chloride 95 L (98-107) mmol/L Carbon Dioxide (22-30) mmol/L BUN 38 H (9-20) mg/dL Creatinine 4.69 H (0.66-1.25) mg/dL Glucose 52 L (74-99) mg/dL POC Glucose (mg/dL) 53 L (70-110) mg/dL Calcium 7.7 L (8.4-10.2) mg/dL 02/04/22 02/04/22 02/04/22 Range/Units 05:56 07:41 07:59 WBC (3.8-10.6) k/uL RBC (4.30-5.90) m/uL Hgb (13.0-17.5) gm/dL Hct (39.0-53.0) % Neutrophils # (1.3-7.7) k/uL Monocytes # (0-1.0) k/uL Sodium (137-145) mmol/L Potassium (3.5-5.1) mmol/L Chloride (98-107) mmol/L Carbon Dioxide (22-30) mmol/L BUN (9-20) mg/dL Creatinine (0.66-1.25) mg/dL Glucose (74-99) mg/dL POC Glucose (mg/dL) 62 L 148 H 157 H (70-110) mg/dL Calcium (8.4-10.2) mg/dL 02/04/22 02/04/22 02/04/22 Range/Units 09:09 11:55 13:54 WBC (3.8-10.6) k/uL RBC (4.30-5.90) m/uL Hgb (13.0-17.5) gm/dL Hct (39.0-53.0) % Neutrophils # (1.3-7.7) k/uL Monocytes # (0-1.0) k/uL Sodium (137-145) mmol/L Potassium (3.5-5.1) mmol/L Chloride (98-107) mmol/L Carbon Dioxide (22-30) mmol/L BUN (9-20) mg/dL Creatinine (0.66-1.25) mg/dL Glucose (74-99) mg/dL POC Glucose (mg/dL) 113 H 124 H 293 H (70-110) mg/dL Calcium (8.4-10.2) mg/dL 02/04/22 Range/Units 16:15 WBC (3.8-10.6) k/uL RBC (4.30-5.90) m/uL Hgb (13.0-17.5) gm/dL Hct (39.0-53.0) % Neutrophils # (1.3-7.7) k/uL Monocytes # (0-1.0) k/uL Sodium (137-145) mmol/L Potassium (3.5-5.1) mmol/L Chloride (98-107) mmol/L Carbon Dioxide (22-30) mmol/L BUN (9-20) mg/dL Creatinine (0.66-1.25) mg/dL Glucose (74-99) mg/dL POC Glucose (mg/dL) 306 H (70-110) mg/dL Calcium (8.4-10.2) mg/dL Microbiology - Last 24 Hours (Table) 02/03/22 14:15 Urine Culture - Final Urine,Voided Assessment and Plan (1) Dialysis patient, noncompliant Current Visit: Yes Status: Acute Code(s): Z91.15 - PATIENT'S NONCOMPLIANCE WITH RENAL DIALYSIS SNOMED Code(s): 920262479777870 (2) ESRD (end stage renal disease) on dialysis Current Visit: Yes Status: Acute Code(s): N18.6 - END STAGE RENAL DISEASE; Z99.2 - DEPENDENCE ON RENAL DIALYSIS SNOMED Code(s): 858249843 (3) Hyperglycemia Current Visit: Yes Status: Acute Code(s): R73.9 - HYPERGLYCEMIA, UNSPECIFIED SNOMED Code(s): 71190524 (4) History of melanoma Current Visit: No Status: Acute Code(s): Z85.820 - PERSONAL HISTORY OF MALIGNANT MELANOMA OF SKIN SNOMED Code(s): 042728333 (5) Obstructive uropathy Current Visit: No Status: Acute Code(s): N13.9 - OBSTRUCTIVE AND REFLUX UROPATHY, UNSPECIFIED SNOMED Code(s): 5207695 Plan: Continue DKA protocol. Consult nephrology. 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 Check CBC and CMP in a.m. with magnesium. Patient otherwise full code. Time with Patient: Greater than 30
[2022-02-04] MEDS: lisinopriL 20 MG TAB PO SCH (20:54)
[2022-02-04 22:54] LABS: Potassium 4.3 mmol/L (3.5-5.1)
[2022-02-05 04:45] LABS: Glucose,Whole Blood >600 mg/dL (70-110)
[2022-02-05 04:55] LABS: Glucose,Whole Blood 574 mg/dL (70-110)
[2022-02-05] MEDS: PROCHLORPERAZINE 10 MG TAB PO SCH ×4 (05:15→21:06)
[2022-02-05] MEDS: INSULIN ASPART (NovoLOG) 100 UNIT/ML VIAL SQ SCH (05:45)
[2022-02-05 06:45] LABS: Glucose,Whole Blood >600 mg/dL (70-110)
[2022-02-05] MEDS ORDERED: INSULIN DETEMIR (LEVEMIR) 100 UNIT/ML SYR SQ SCH (07:00)
[2022-02-05] MEDS: carvediloL 6.25 MG TAB PO SCH ×2 (07:05→18:22)
[2022-02-05 07:28] LABS: Basophils % (A) 0 %; Eosinophils % (A) 0 %; HCT 31.3 % (39.0-53.0); HGB 9.5 gm/dL (13.0-17.5); Hypochromasia Moderate; Lymphocytes # (A) 0.7 k/uL (1.0-4.8); Lymphocytes % (A) 6 %; MCH 28.1 pg (25.0-35.0); MCHC 30.5 g/dL (31.0-37.0); Mean Platelet Volume 9.6; Monocytes # (A) 0.4 k/uL (0-1.0); Monocytes % (A) 4 %; Neutrophils # (A) 10.3 k/uL (1.3-7.7); Neutrophils % (A) 89 %; Platelet Count 156 k/uL (150-450); RDW 13.2 % (11.5-15.5); WBC 11.5 k/uL (3.8-10.6)
[2022-02-05 07:33] LABS: Albumin 2.6 g/dL (3.5-5.0); Calcium 7.5 mg/dL (8.4-10.2); Magnesium 1.7 mg/dL (1.6-2.3); Potassium 4.9 mmol/L (3.5-5.1); Total Bilirubin 0.4 mg/dL (0.2-1.3); Total Protein 4.4 g/dL (6.3-8.2)
[2022-02-05 07:38] LABS: MCV 92.3 fL (80.0-100.0)
[2022-02-05 07:48] LABS: Glucose,Whole Blood 555 mg/dL (70-110)
--- NOTE | 2022-02-05 08:35 | P.PN ---
Subjective Principal diagnosis: Diabetic ketoacidosis with ESRD The patient has been stabilizing. Dialysis is helped the patient is now not aci dotic but his blood sugar still hyperglycemic. Objective - Vital Signs Vital signs: Vital Signs Temp 98.5 F 02/05/22 00:00 Pulse 103 H 02/05/22 07:00 Resp 12 02/05/22 07:00 BP 140/69 02/05/22 07:00 Pulse Ox 97 02/05/22 07:00 FiO2 Intake & Output 02/04/22 02/05/22 02/05/22 18:59 06:59 18:59 Intake Total 2812.320 800 350 Output Total 1450 250 15 Balance 1362.320 550 335 Weight 82 kg 82 kg Intake: IV 2200 150 D5-0.45% NaCl with KCl 1800 150 20Meq/l 1,000 ml @ 150 mls/hr IV .Q6H40M [facility] Rx# :[id number] Potassium Chloride 10 meq 400 In Water For Injection 1 100ml.bag @ 100 mls/hr IVPB Q1HR [facility] Rx#: [id number] Intake, IV Titration 112.320 Amount Insulin Regular 100 unit 112.320 In Sodium Chloride 0.9% 100 ml @ 0.1 UNITS/KG/HR 5.498 mls/hr IV .[id number] [facility] Rx#:[id number] Oral 650 350 Hemodialysis 500 Output: Urine 450 250 15 Hemodialysis 1000 Other: Voiding Method Indwelling Catheter Indwelling Catheter # Bowel Movements 1 - Constitutional General appearance: Present: cooperative - EENT Eyes: Absent: abnormal pupil - Respiratory Respiratory: bilateral: diminished - Cardiovascular Rhythm: regular Heart sounds: normal: S1, S2 Abnormal Heart Sounds: Absent: S3 Gallop - Gastrointestinal General gastrointestinal: Present: soft, tenderness - Labs CBC & Chem 7: 02/05/22 06:40 02/05/22 06:40 Labs: Abnormal Lab Results - Last 24 Hours (Table) 02/04/22 02/04/22 02/04/22 Range/Units 09:09 11:55 13:54 WBC (3.8-10.6) k/uL RBC (4.30-5.90) m/uL Hgb (13.0-17.5) gm/dL Hct (39.0-53.0) % MCHC (31.0-37.0) g/dL Neutrophils # (1.3-7.7) k/uL Lymphocytes # (1.0-4.8) k/uL Sodium (137-145) mmol/L Chloride (98-107) mmol/L Carbon Dioxide (22-30) mmol/L BUN (9-20) mg/dL Creatinine (0.66-1.25) mg/dL Glucose (74-99) mg/dL POC Glucose (mg/dL) 113 H 124 H 293 H (70-110) mg/dL Calcium (8.4-10.2) mg/dL Alkaline Phosphatase (38-126) U/L Total Protein (6.3-8.2) g/dL Albumin (3.5-5.0) g/dL 02/04/22 02/04/22 02/04/22 Range/Units 16:15 20:45 21:55 WBC (3.8-10.6) k/uL RBC (4.30-5.90) m/uL Hgb (13.0-17.5) gm/dL Hct (39.0-53.0) % MCHC (31.0-37.0) g/dL Neutrophils # (1.3-7.7) k/uL Lymphocytes # (1.0-4.8) k/uL Sodium 131 L (137-145) mmol/L Chloride (98-107) mmol/L Carbon Dioxide (22-30) mmol/L BUN 25 H (9-20) mg/dL Creatinine 4.23 H (0.66-1.25) mg/dL Glucose 170 H (74-99) mg/dL POC Glucose (mg/dL) 306 H 183 H (70-110) mg/dL Calcium 8.0 L (8.4-10.2) mg/dL Alkaline Phosphatase (38-126) U/L Total Protein (6.3-8.2) g/dL Albumin (3.5-5.0) g/dL 02/05/22 02/05/22 02/05/22 Range/Units 04:42 04:45 06:40 WBC 11.5 H (3.8-10.6) k/uL RBC 3.40 L (4.30-5.90) m/uL Hgb 9.5 L (13.0-17.5) gm/dL Hct 31.3 L (39.0-53.0) % MCHC 30.5 L (31.0-37.0) g/dL Neutrophils # 10.3 H (1.3-7.7) k/uL Lymphocytes # 0.7 L (1.0-4.8) k/uL Sodium (137-145) mmol/L Chloride (98-107) mmol/L Carbon Dioxide (22-30) mmol/L BUN (9-20) mg/dL Creatinine (0.66-1.25) mg/dL Glucose (74-99) mg/dL POC Glucose (mg/dL) >600 H 574 H (70-110) mg/dL Calcium (8.4-10.2) mg/dL Alkaline Phosphatase (38-126) U/L Total Protein (6.3-8.2) g/dL Albumin (3.5-5.0) g/dL 02/05/22 02/05/22 02/05/22 Range/Units 06:40 06:43 07:46 WBC (3.8-10.6) k/uL RBC (4.30-5.90) m/uL Hgb (13.0-17.5) gm/dL Hct (39.0-53.0) % MCHC (31.0-37.0) g/dL Neutrophils # (1.3-7.7) k/uL Lymphocytes # (1.0-4.8) k/uL Sodium 126 L (137-145) mmol/L Chloride 95 L (98-107) mmol/L Carbon Dioxide 13 L (22-30) mmol/L BUN 39 H (9-20) mg/dL Creatinine 4.82 H (0.66-1.25) mg/dL Glucose 630 H* (74-99) mg/dL POC Glucose (mg/dL) >600 H 555 H (70-110) mg/dL Calcium 7.5 L (8.4-10.2) mg/dL Alkaline Phosphatase 151 H (38-126) U/L Total Protein 4.4 L (6.3-8.2) g/dL Albumin 2.6 L (3.5-5.0) g/dL Microbiology - Last 24 Hours (Table) 02/03/22 14:15 Urine Culture - Final Urine,Voided Assessment and Plan (1) Dialysis patient, noncompliant Current Visit: Yes Status: Acute Code(s): Z91.15 - PATIENT'S NONCOMPLIANCE WITH RENAL DIALYSIS SNOMED Code(s): 923191756195630 (2) ESRD (end stage renal disease) on dialysis Current Visit: Yes Status: Acute Code(s): N18.6 - END STAGE RENAL DISEASE; Z99.2 - DEPENDENCE ON RENAL DIALYSIS SNOMED Code(s): 547093677 (3) Hyperglycemia Current Visit: Yes Status: Acute Code(s): R73.9 - HYPERGLYCEMIA, UNSPECIFIED SNOMED Code(s): 04280501 (4) History of melanoma Current Visit: No Status: Acute Code(s): Z85.820 - PERSONAL HISTORY OF MALIGNANT MELANOMA OF SKIN SNOMED Code(s): 089074755 (5) Obstructive uropathy Current Visit: No Status: Acute Code(s): N13.9 - OBSTRUCTIVE AND REFLUX UROPATHY, UNSPECIFIED SNOMED Code(s): 1306581 Plan: \ DD resolving. Still hyperglycemic. Check CMP in a.m. Anticipate transfer out of ICU
[2022-02-05] MEDS ORDERED: INSULIN ASPART (NovoLOG) 100 UNIT/ML VIAL SQ ONE (08:37)
[2022-02-05] MEDS ORDERED: INSULIN DETEMIR (LEVEMIR) 100 UNIT/ML SYR SQ ONE (09:00)
--- NOTE | 2022-02-05 09:08 | P.PN ---
Subjective Progress Note Date: 02/04/22 51-year-old male patient with an incisional disease [facility] because of altered mentation and hyperglycemia and DKA. The patient was discharged from the hospital recently and he was discharged home. The patient was supposed to continue his hemodialysis as outpatient basis Tuesdays and Saturdays. I think is an issue with compliance. The patient apparently was not taking his insulin recently. He was found crawling around and a hotel by family. The patient was confused and he was unable to provide much history. Denies having any chest pain. Denies having any shortness of breath. He apparently has been eating poorly and he was not using any of his medication. For that reason, the patient was brought into the emergency. He was afebrile. He was slightly tachycardic. His BP was 120/53. His initial blood gas showed a pH of 7.01 with a pCO2 less than 15 and a pO2 of 156. His rest of the blood work showed a white cell count of 12.3 with a hemoglobin of 11.4 and a platelet count of 298. His sodium level was 111 potassium level was at 7.8 chloride was 71 serum bicarbonate was less than 5, a BUN of 47 with a creatinine of 7.25 and a glucose level of 1770 with a phosphorus level of 9.8 and a calcium level of 7.7. LFTs were normal, troponin was at 0.139 with a total protein of 5.6 and albumin of 3.8. At that point, the patient was admitted to the intensive care unit for treatment of DKA. In the emergency, the patient was started on insulin drip. He was given insulin bolus in the emergency and following that he was started on insulin drip which is currently running at 5 units an hour and this will be adjusted based on his DKA protocol. Most recent blood sugar is at 600 and above. The patient has a Sanchez catheter in place. Urine output is minimal and order 100 mL his since he arrived to the intensive care unit. He is also on IV fluids at 75 mL an hour of normal saline. The patient was given fluids in the emergency, a total of 1 L bolus only. He does have a permacath over the right IJ. Chest x-ray was done in the emergency department showed no acute abnormalities. The hyperkalemia was treated in the emergency with calcium gluconate, bicarb and 10 units of regular insulin and a repeat potassium level is currently at 7.8. Today's evaluation of 02/04/2022, the patient is being seen for a follow-up. He is somewhat still encephalopathic although he is arousable and he communicates. There has been significant improvement in his electrolyte balance since yesterday. As mentioned, this patient was found in a hotel and he was not taking any of his medications. His sugars were extremely high. He was in DKA. He got dialyzed yesterday. He was also placed on an insulin drip that was run gil at one point as high as 14 units an hour. Currently the insulin drip is down to 2 units an hour and the most recent blood sugars of 113 and the patient is on D5 half-normal saline today to have 1 50 mL an hour. Urine output is minimal as the patient has incisional disease and the patient is in the process of obtaining his second dialysis today. Potassium level is down to 3.1. No EKG changes related to hyperkalemia. He is on 2 L of oxygen by nasal cannula and his pulse ox to 99%. White cell count of 15 with a hemoglobin of 10.0. The urine drug screen came back negative. He is arousable. He follows some simple commands comfortably. The most recent electrolytes showed a denying episodes and is down to 12 with a serum bicarb of 24. Sodium level is up to 131. 02/05/2022, the patient is again and anion gap metabolic acidosis. After his gap closed, I switched him to a Levemir NovoLog combination. 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 The most recent electrolytes showed anion gap metabolic acidosis with a serum bicarb of 13 and a gap of 18 with a sodium level of 126. Most recent blood sugars around 630. At this point in time, the patient is awake and alert. His tolerating diet. He underwent hemodialysis yesterday. His white cell count is 11.5 with hemoglobin 9.5 and a platelet count of 156. Based on all this, I'm recommending to put this patient back on an insulin drip for anion gap metabolic acidosis and recurrent DKA. Objective - Vital Signs Vital signs: Vital Signs Temp 97.7 F 02/04/22 08:00 Pulse 92 02/04/22 08:00 Resp 9 L 02/04/22 08:00 BP 127/58 02/04/22 08:00 Pulse Ox 100 02/04/22 08:00 FiO2 Intake & Output 02/03/22 02/04/22 02/04/22 18:59 06:59 18:59 Intake Total 8392.807 6178.013 261.320 Output Total 1490 325 30 Balance 569.572 9646.013 231.320 Weight 54.431 kg 82 kg Intake: IV 1400 1250 250 Calcium Gluconate in NaCl 300 100 1 gm In Saline 1 100ml. bag @ 100 mls/hr IVPB ONCE ONE Rx#:[id number] D5-0.45% NaCl with KCl 150 150 20Meq/l 1,000 ml @ 150 mls/hr IV .[id number] [facility] Rx# :[id number] Potassium Chloride 10 meq 100 In Water For Injection 1 100ml.bag @ 100 mls/hr IVPB Q1HR [facility] Rx#: [id number] Sodium Chloride 0.9% 1, 100 1000 000 ml @ 100 mls/hr IV . Q10H [facility] Rx#:[id number] Sodium Chloride 0.9% 1, 1000 000 ml @ 999 mls/hr IV . Q1H1M ONE Rx#:[id number] Intake, IV Titration 32.998 145.013 11.320 Amount Insulin Regular 100 unit 32.998 145.013 11.320 In Sodium Chloride 0.9% 100 ml @ 0.1 UNITS/KG/HR 5.498 mls/hr IV .[id number] [facility] Rx#:[id number] Hemodialysis 300 Output: Urine 490 325 30 Hemodialysis 1000 Other: Voiding Method Indwelling Catheter Indwelling Catheter - Exam This is a 51-year-old male The patient is currently on 2 L O2 nasal cannula with a pulse ox of 99%. The patient is awake and alert and communicating at this point in time. He seems to be appropriate although sluggish and answering his questions. Head exam was generally normal. There was no scleral icterus or corneal arcus. Mucous membranes were dry at this point in time. Neck was supple and without jugular venous distension, thyromegaly, or carotid bruits. Carotids were easily palpable bilaterally. There was no adenopathy. CHEST EXAMINATION: Lungs are clear to auscultation. No chest wall tenderness is noted on palpation or with deep breathing. HEART EXAMINATION: Cardiac exam revealed the PMI to be normally situated and sized. The rhythm was regular and no extrasystoles were noted during several minutes of auscultation. The first and second heart sounds were normal and physiologic splitting of the second heart sound was noted. There were no murmurs, rubs, clicks, or gallops. ABDOMEN: Soft, tender to palpation. Bowel sounds are heard. No organomegaly noted. EXTREMITIES: 2+ peripheral pulses with no evidence of peripheral edema and no calf tenderness noted. NEUROLOGIC EXAMINATION: Lethargic, sleepy, arousable, communicating. Skin revealed no evidence of significant rashes, suspicious appearing nevi or other concerning lesions. The patient has a permacath over the right anterior chest area extending to his right IJ. Sanchez catheter is in place - Labs CBC & Chem 7: 02/05/22 06:40 02/05/22 06:40 Labs: Abnormal Lab Results - Last 24 Hours (Table) 02/03/22 02/03/22 02/03/22 Range/Units 11:24 11:40 11:40 WBC 12.3 H (3.8-10.6) k/uL RBC 3.95 L (4.30-5.90) m/uL Hgb 11.4 L (13.0-17.5) gm/dL Hct (39.0-53.0) % MCV 112.5 H D (80.0-100.0) fL MCHC 25.7 L (31.0-37.0) g/dL Neutrophils # (1.3-7.7) k/uL Neutrophils # (Manual) 10.95 H (1.3-7.7) k/uL Lymphocytes # (Manual) 0.86 L (1.0-4.8) k/uL Monocytes # (0-1.0) k/uL Macrocytosis Marked A ABG pH (7.35-7.45) ABG pCO2 (35-45) mmHg ABG pO2 (83-108) mmHg ABG O2 Saturation (94-97) % Hemoglobin (13.0-17.5) gm/dL Sodium 111 L* (137-145) mmol/L Potassium 8.3 H* (3.5-5.1) mmol/L Chloride 71 L* (98-107) mmol/L Carbon Dioxide <5 L* (22-30) mmol/L BUN 47 H (9-20) mg/dL Creatinine 7.24 H* (0.66-1.25) mg/dL Glucose 1770 H* (74-99) mg/dL POC Glucose (mg/dL) >600 H (70-110) mg/dL Calcium 7.7 L (8.4-10.2) mg/dL Phosphorus 9.8 H* (2.5-4.5) mg/dL AST 16 L (17-59) U/L Alkaline Phosphatase 247 H (38-126) U/L Troponin I (0.000-0.034) ng/mL Total Protein 5.6 L (6.3-8.2) g/dL Urine Protein (Negative) Urine Glucose (UA) (Negative) Urine Ketones (Negative) Urine Blood (Negative) Ur Leukocyte Esterase (Negative) Urine RBC (0-5) /hpf Urine WBC (0-5) /hpf Urine Bacteria (None) /hpf 02/03/22 02/03/22 02/03/22 Range/Units 11:50 11:53 13:35 WBC (3.8-10.6) k/uL RBC (4.30-5.90) m/uL Hgb (13.0-17.5) gm/dL Hct (39.0-53.0) % MCV (80.0-100.0) fL MCHC (31.0-37.0) g/dL Neutrophils # (1.3-7.7) k/uL Neutrophils # (Manual) (1.3-7.7) k/uL Lymphocytes # (Manual) (1.0-4.8) k/uL Monocytes # (0-1.0) k/uL Macrocytosis ABG pH 7.01 L* (7.35-7.45) ABG pCO2 <15 L* (35-45) mmHg ABG pO2 156 H (83-108) mmHg ABG O2 Saturation 98.8 H (94-97) % Hemoglobin 11.1 L (13.0-17.5) gm/dL Sodium (137-145) mmol/L Potassium 7.8 H* (3.5-5.1) mmol/L Chloride (98-107) mmol/L Carbon Dioxide (22-30) mmol/L BUN (9-20) mg/dL Creatinine (0.66-1.25) mg/dL Glucose (74-99) mg/dL POC Glucose (mg/dL) (70-110) mg/dL Calcium (8.4-10.2) mg/dL Phosphorus (2.5-4.5) mg/dL AST (17-59) U/L Alkaline Phosphatase (38-126) U/L Troponin I 0.139 H* (0.000-0.034) ng/mL Total Protein (6.3-8.2) g/dL Urine Protein (Negative) Urine Glucose (UA) (Negative) Urine Ketones (Negative) Urine Blood (Negative) Ur Leukocyte Esterase (Negative) Urine RBC (0-5) /hpf Urine WBC (0-5) /hpf Urine Bacteria (None) /hpf 02/03/22 02/03/22 02/03/22 Range/Units 14:15 14:43 15:26 WBC (3.8-10.6) k/uL RBC (4.30-5.90) m/uL Hgb (13.0-17.5) gm/dL Hct (39.0-53.0) % MCV (80.0-100.0) fL MCHC (31.0-37.0) g/dL Neutrophils # (1.3-7.7) k/uL Neutrophils # (Manual) (1.3-7.7) k/uL Lymphocytes # (Manual) (1.0-4.8) k/uL Monocytes # (0-1.0) k/uL Macrocytosis ABG pH (7.35-7.45) ABG pCO2 (35-45) mmHg ABG pO2 (83-108) mmHg ABG O2 Saturation (94-97) % Hemoglobin (13.0-17.5) gm/dL Sodium (137-145) mmol/L Potassium (3.5-5.1) mmol/L Chloride (98-107) mmol/L Carbon Dioxide (22-30) mmol/L BUN (9-20) mg/dL Creatinine (0.66-1.25) mg/dL Glucose 1642 H* (74-99) mg/dL POC Glucose (mg/dL) >600 H (70-110) mg/dL Calcium (8.4-10.2) mg/dL Phosphorus 8.6 H (2.5-4.5) mg/dL AST (17-59) U/L Alkaline Phosphatase (38-126) U/L Troponin I (0.000-0.034) ng/mL Total Protein (6.3-8.2) g/dL Urine Protein 4+ H (Negative) Urine Glucose (UA) 4+ H (Negative) Urine Ketones 2+ H (Negative) Urine Blood Large H (Negative) Ur Leukocyte Esterase Small H (Negative) Urine RBC 10 H (0-5) /hpf Urine WBC 71 H (0-5) /hpf Urine Bacteria Occasional H (None) /hpf 02/03/22 02/03/22 02/03/22 Range/Units 15:26 16:10 17:05 WBC (3.8-10.6) k/uL RBC (4.30-5.90) m/uL Hgb (13.0-17.5) gm/dL Hct (39.0-53.0) % MCV (80.0-100.0) fL MCHC (31.0-37.0) g/dL Neutrophils # (1.3-7.7) k/uL Neutrophils # (Manual) (1.3-7.7) k/uL Lymphocytes # (Manual) (1.0-4.8) k/uL Monocytes # (0-1.0) k/uL Macrocytosis ABG pH (7.35-7.45) ABG pCO2 (35-45) mmHg ABG pO2 (83-108) mmHg ABG O2 Saturation (94-97) % Hemoglobin (13.0-17.5) gm/dL Sodium 115 L* (137-145) mmol/L Potassium 7.4 H* (3.5-5.1) mmol/L Chloride 75 L (98-107) mmol/L Carbon Dioxide 6 L* (22-30) mmol/L BUN 50 H (9-20) mg/dL Creatinine 7.26 H* (0.66-1.25) mg/dL Glucose 1713 H* (74-99) mg/dL POC Glucose (mg/dL) >600 H >600 H (70-110) mg/dL Calcium 7.3 L (8.4-10.2) mg/dL Phosphorus (2.5-4.5) mg/dL AST (17-59) U/L Alkaline Phosphatase (38-126) U/L Troponin I (0.000-0.034) ng/mL Total Protein (6.3-8.2) g/dL Urine Protein (Negative) Urine Glucose (UA) (Negative) Urine Ketones (Negative) Urine Blood (Negative) Ur Leukocyte Esterase (Negative) Urine RBC (0-5) /hpf Urine WBC (0-5) /hpf Urine Bacteria (None) /hpf 02/03/22 02/03/22 02/03/22 Range/Units 18:03 19:13 20:07 WBC (3.8-10.6) k/uL RBC (4.30-5.90) m/uL Hgb (13.0-17.5) gm/dL Hct (39.0-53.0) % MCV (80.0-100.0) fL MCHC (31.0-37.0) g/dL Neutrophils # (1.3-7.7) k/uL Neutrophils # (Manual) (1.3-7.7) k/uL Lymphocytes # (Manual) (1.0-4.8) k/uL Monocytes # (0-1.0) k/uL Macrocytosis ABG pH (7.35-7.45) ABG pCO2 (35-45) mmHg ABG pO2 (83-108) mmHg ABG O2 Saturation (94-97) % Hemoglobin (13.0-17.5) gm/dL Sodium (137-145) mmol/L Potassium (3.5-5.1) mmol/L Chloride (98-107) mmol/L Carbon Dioxide (22-30) mmol/L BUN (9-20) mg/dL Creatinine (0.66-1.25) mg/dL Glucose (74-99) mg/dL POC Glucose (mg/dL) >600 H >600 H >600 H (70-110) mg/dL Calcium (8.4-10.2) mg/dL Phosphorus (2.5-4.5) mg/dL AST (17-59) U/L Alkaline Phosphatase (38-126) U/L Troponin I (0.000-0.034) ng/mL Total Protein (6.3-8.2) g/dL Urine Protein (Negative) Urine Glucose (UA) (Negative) Urine Ketones (Negative) Urine Blood (Negative) Ur Leukocyte Esterase (Negative) Urine RBC (0-5) /hpf Urine WBC (0-5) /hpf Urine Bacteria (None) /hpf 02/03/22 02/03/22 02/03/22 Range/Units 20:34 21:00 22:03 WBC (3.8-10.6) k/uL RBC (4.30-5.90) m/uL Hgb (13.0-17.5) gm/dL Hct (39.0-53.0) % MCV (80.0-100.0) fL MCHC (31.0-37.0) g/dL Neutrophils # (1.3-7.7) k/uL Neutrophils # (Manual) (1.3-7.7) k/uL Lymphocytes # (Manual) (1.0-4.8) k/uL Monocytes # (0-1.0) k/uL Macrocytosis ABG pH (7.35-7.45) ABG pCO2 (35-45) mmHg ABG pO2 (83-108) mmHg ABG O2 Saturation (94-97) % Hemoglobin (13.0-17.5) gm/dL Sodium 125 L (137-145) mmol/L Potassium (3.5-5.1) mmol/L Chloride 88 L (98-107) mmol/L Carbon Dioxide 18 L (22-30) mmol/L BUN 34 H (9-20) mg/dL Creatinine 4.22 H (0.66-1.25) mg/dL Glucose 695 H* (74-99) mg/dL POC Glucose (mg/dL) >600 H 564 H (70-110) mg/dL Calcium (8.4-10.2) mg/dL Phosphorus (2.5-4.5) mg/dL AST (17-59) U/L Alkaline Phosphatase (38-126) U/L Troponin I (0.000-0.034) ng/mL Total Protein (6.3-8.2) g/dL Urine Protein (Negative) Urine Glucose (UA) (Negative) Urine Ketones (Negative) Urine Blood (Negative) Ur Leukocyte Esterase (Negative) Urine RBC (0-5) /hpf Urine WBC (0-5) /hpf Urine Bacteria (None) /hpf 02/03/22 02/04/22 02/04/22 Range/Units 23:07 00:04 01:04 WBC (3.8-10.6) k/uL RBC (4.30-5.90) m/uL Hgb (13.0-17.5) gm/dL Hct (39.0-53.0) % MCV (80.0-100.0) fL MCHC (31.0-37.0) g/dL Neutrophils # (1.3-7.7) k/uL Neutrophils # (Manual) (1.3-7.7) k/uL Lymphocytes # (Manual) (1.0-4.8) k/uL Monocytes # (0-1.0) k/uL Macrocytosis ABG pH (7.35-7.45) ABG pCO2 (35-45) mmHg ABG pO2 (83-108) mmHg ABG O2 Saturation (94-97) % Hemoglobin (13.0-17.5) gm/dL Sodium (137-145) mmol/L Potassium (3.5-5.1) mmol/L Chloride (98-107) mmol/L Carbon Dioxide (22-30) mmol/L BUN (9-20) mg/dL Creatinine (0.66-1.25) mg/dL Glucose (74-99) mg/dL POC Glucose (mg/dL) 500 H 430 H 391 H (70-110) mg/dL Calcium (8.4-10.2) mg/dL Phosphorus (2.5-4.5) mg/dL AST (17-59) U/L Alkaline Phosphatase (38-126) U/L Troponin I (0.000-0.034) ng/mL Total Protein (6.3-8.2) g/dL Urine Protein (Negative) Urine Glucose (UA) (Negative) Urine Ketones (Negative) Urine Blood (Negative) Ur Leukocyte Esterase (Negative) Urine RBC (0-5) /hpf Urine WBC (0-5) /hpf Urine Bacteria (None) /hpf 02/04/22 02/04/22 02/04/22 Range/Units 02:03 03:04 04:03 WBC (3.8-10.6) k/uL RBC (4.30-5.90) m/uL Hgb (13.0-17.5) gm/dL Hct (39.0-53.0) % MCV (80.0-100.0) fL MCHC (31.0-37.0) g/dL Neutrophils # (1.3-7.7) k/uL Neutrophils # (Manual) (1.3-7.7) k/uL Lymphocytes # (Manual) (1.0-4.8) k/uL Monocytes # (0-1.0) k/uL Macrocytosis ABG pH (7.35-7.45) ABG pCO2 (35-45) mmHg ABG pO2 (83-108) mmHg ABG O2 Saturation (94-97) % Hemoglobin (13.0-17.5) gm/dL Sodium (137-145) mmol/L Potassium (3.5-5.1) mmol/L Chloride (98-107) mmol/L Carbon Dioxide (22-30) mmol/L BUN (9-20) mg/dL Creatinine (0.66-1.25) mg/dL Glucose (74-99) mg/dL POC Glucose (mg/dL) 301 H 197 H 115 H (70-110) mg/dL Calcium (8.4-10.2) mg/dL Phosphorus (2.5-4.5) mg/dL AST (17-59) U/L Alkaline Phosphatase (38-126) U/L Troponin I (0.000-0.034) ng/mL Total Protein (6.3-8.2) g/dL Urine Protein (Negative) Urine Glucose (UA) (Negative) Urine Ketones (Negative) Urine Blood (Negative) Ur Leukocyte Esterase (Negative) Urine RBC (0-5) /hpf Urine WBC (0-5) /hpf Urine Bacteria (None) /hpf 02/04/22 02/04/22 02/04/22 Range/Units 05:03 05:48 05:48 WBC 15.6 H (3.8-10.6) k/uL RBC 3.47 L (4.30-5.90) m/uL Hgb 10.0 L (13.0-17.5) gm/dL Hct 29.7 L (39.0-53.0) % MCV (80.0-100.0) fL MCHC (31.0-37.0) g/dL Neutrophils # 12.6 H (1.3-7.7) k/uL Neutrophils # (Manual) (1.3-7.7) k/uL Lymphocytes # (Manual) (1.0-4.8) k/uL Monocytes # 1.2 H (0-1.0) k/uL Macrocytosis ABG pH (7.35-7.45) ABG pCO2 (35-45) mmHg ABG pO2 (83-108) mmHg ABG O2 Saturation (94-97) % Hemoglobin (13.0-17.5) gm/dL Sodium 131 L (137-145) mmol/L Potassium 3.1 L (3.5-5.1) mmol/L Chloride 95 L (98-107) mmol/L Carbon Dioxide (22-30) mmol/L BUN 38 H (9-20) mg/dL Creatinine 4.69 H (0.66-1.25) mg/dL Glucose 52 L (74-99) mg/dL POC Glucose (mg/dL) 53 L (70-110) mg/dL Calcium 7.7 L (8.4-10.2) mg/dL Phosphorus (2.5-4.5) mg/dL AST (17-59) U/L Alkaline Phosphatase (38-126) U/L Troponin I (0.000-0.034) ng/mL Total Protein (6.3-8.2) g/dL Urine Protein (Negative) Urine Glucose (UA) (Negative) Urine Ketones (Negative) Urine Blood (Negative) Ur Leukocyte Esterase (Negative) Urine RBC (0-5) /hpf Urine WBC (0-5) /hpf Urine Bacteria (None) /hpf 02/04/22 02/04/22 02/04/22 Range/Units 05:56 07:41 07:59 WBC (3.8-10.6) k/uL RBC (4.30-5.90) m/uL Hgb (13.0-17.5) gm/dL Hct (39.0-53.0) % MCV (80.0-100.0) fL MCHC (31.0-37.0) g/dL Neutrophils # (1.3-7.7) k/uL Neutrophils # (Manual) (1.3-7.7) k/uL Lymphocytes # (Manual) (1.0-4.8) k/uL Monocytes # (0-1.0) k/uL Macrocytosis ABG pH (7.35-7.45) ABG pCO2 (35-45) mmHg ABG pO2 (83-108) mmHg ABG O2 Saturation (94-97) % Hemoglobin (13.0-17.5) gm/dL Sodium (137-145) mmol/L Potassium (3.5-5.1) mmol/L Chloride (98-107) mmol/L Carbon Dioxide (22-30) mmol/L BUN (9-20) mg/dL Creatinine (0.66-1.25) mg/dL Glucose (74-99) mg/dL POC Glucose (mg/dL) 62 L 148 H 157 H (70-110) mg/dL Calcium (8.4-10.2) mg/dL Phosphorus (2.5-4.5) mg/dL AST (17-59) U/L Alkaline Phosphatase (38-126) U/L Troponin I (0.000-0.034) ng/mL Total Protein (6.3-8.2) g/dL Urine Protein (Negative) Urine Glucose (UA) (Negative) Urine Ketones (Negative) Urine Blood (Negative) Ur Leukocyte Esterase (Negative) Urine RBC (0-5) /hpf Urine WBC (0-5) /hpf Urine Bacteria (None) /hpf 02/04/22 Range/Units 09:09 WBC (3.8-10.6) k/uL RBC (4.30-5.90) m/uL Hgb (13.0-17.5) gm/dL Hct (39.0-53.0) % MCV (80.0-100.0) fL MCHC (31.0-37.0) g/dL Neutrophils # (1.3-7.7) k/uL Neutrophils # (Manual) (1.3-7.7) k/uL Lymphocytes # (Manual) (1.0-4.8) k/uL Monocytes # (0-1.0) k/uL Macrocytosis ABG pH (7.35-7.45) ABG pCO2 (35-45) mmHg ABG pO2 (83-108) mmHg ABG O2 Saturation (94-97) % Hemoglobin (13.0-17.5) gm/dL Sodium (137-145) mmol/L Potassium (3.5-5.1) mmol/L Chloride (98-107) mmol/L Carbon Dioxide (22-30) mmol/L BUN (9-20) mg/dL Creatinine (0.66-1.25) mg/dL Glucose (74-99) mg/dL POC Glucose (mg/dL) 113 H (70-110) mg/dL Calcium (8.4-10.2) mg/dL Phosphorus (2.5-4.5) mg/dL AST (17-59) U/L Alkaline Phosphatase (38-126) U/L Troponin I (0.000-0.034) ng/mL Total Protein (6.3-8.2) g/dL Urine Protein (Negative) Urine Glucose (UA) (Negative) Urine Ketones (Negative) Urine Blood (Negative) Ur Leukocyte Esterase (Negative) Urine RBC (0-5) /hpf Urine WBC (0-5) /hpf Urine Bacteria (None) /hpf Microbiology - Last 24 Hours (Table) 02/03/22 14:15 Urine Culture - Preliminary Urine,Voided Assessment and Plan Plan: Acute DKA with severe anion gap metabolic acidosis, after closure of the gap, the morning blood showed recurrent anion gap metabolic acidosis. His on this, I'm recommending to put the patient back on an insulin drip for tighter blood sugar control and correction of his anion gap metabolic acidosis. Acute hyperkalemia with EKG changes, recovered Acute pseudohyponatremia due to severe hyperglycemia Acute anion gap metabolic acidosis secondary to above, recurrent Altered mentation secondary to above and this is most likely related to metabolic encephalopathy in association with DKA, improved Severe dehydration secondary to above End stage renal disease and the patient is medically on hemodialysis 3 times a week Tuesdays and Saturdays and the patient has a right chest permacath Obstructive uropathy and the patient undergoes self-catheterization and the Sanchez catheter in place and the urine output is diminished at this point in time the patient has chronic hydronephrosis and chronic urinary retention. The patient undergone previous TURP in August 2014. Hypertension BPH and obstructive uropathy Previous history of perianal abscess/fistula requiring fistulotomy an incision and drainage Poor compliance with medical treatment Troponin leak, secondary to above, troponins at 0.139 Previous history of melanoma Plan Give the patient 10 units of NovoLog immediately IV and start him on a insulin drip at 8 units an hour and titrate insulin drip for his blood sugar control per DKA protocol. Will stop long-acting Levemir for now due to recurrent DKA anion gap metabolic acidosis Complete dialysis was done yesterday and nephrology is on the case Mental status is improved considerably. Keep the Sanchez catheter in place We'll continue to follow. We'll keep in ICU until the patient is further stabilized.
[2022-02-05] MEDS ORDERED: INSULIN REGULAR BOLUS (FROM DRIP BAG) IV ONE (09:13)
[2022-02-05] MEDS ORDERED: INSULIN REGULAR 100 UNIT in SODIUM CHLORIDE 0.9% 100 ML IV SCH (09:15)
--- NOTE | 2022-02-05 09:23 | P.PN ---
Subjective Progress Note Date: 02/05/22 51-year-old male patient with an incisional disease was currently admitted to [facility] because of altered mentation and hyperglycemia and DKA. The patient was discharged from the hospital recently and he was discharged home. The patient was supposed to continue his hemodialysis as outpatient basis Tuesdays and Saturdays. I think is an issue with compliance. The patient apparently was not taking his insulin recently. He was found crawling around and a hotel by family. The patient was confused and he was unable to provide much history. Denies having any chest pain. Denies having any shortness of breath. He apparently has been eating poorly and he was not using any of his medication. For that reason, the patient was brought into the emergency. He was afebrile. He was slightly tachycardic. His BP was 120/53. His initial blood gas showed a pH of 7.01 with a pCO2 less than 15 and a pO2 of 156. His rest of the blood work showed a white cell count of 12.3 with a hemoglobin of 11.4 and a platelet count of 298. His sodium level was 111 potassium level was at 7.8 chloride was 71 serum bicarbonate was less than 5, a BUN of 47 with a creatinine of 7.25 and a glucose level of 1770 with a phosphorus level of 9.8 and a calcium level of 7.7. LFTs were normal, troponin was at 0.139 with a total protein of 5.6 and albumin of 3.8. At that point, the patient was admitted to the intensive care unit for treatment of DKA. In the emergency, the patient was started on insulin drip. He was given insulin bolus in the emergency and following that he was started on insulin drip which is currently running at 5 units an hour and this will be adjusted based on his DKA protocol. Most recent blood sugar is at 600 and above. The patient has a Sanchez catheter in place. Urine output is minimal and order 100 mL his since he arrived to the intensive care unit. He is also on IV fluids at 75 mL an hour of normal saline. The patient was given fluids in the emergency, a total of 1 L bolus only. He does have a permacath over the right IJ. Chest x-ray was done in the emergency department showed no acute abnormalities. The hyperkalemia was treated in the emergency with calcium gluconate, bicarb and 10 units of regular insulin and a repeat potassium level is currently at 7.8. Today's evaluation of 02/04/2022, the patient is being seen for a follow-up. He is somewhat still encephalopathic although he is arousable and he communicates. There has been significant improvement in his electrolyte balance since yesterday. As mentioned, this patient was found in a hotel and he was not taking any of his medications. His sugars were extremely high. He was in DKA. He got dialyzed yesterday. He was also placed on an insulin drip that was run gil at one point as high as 14 units an hour. Currently the insulin drip is down to 2 units an hour and the most recent blood sugars of 113 and the patient is on D5 half-normal saline today to have 1 50 mL an hour. Urine output is minimal as the patient has incisional disease and the patient is in the process of obtaining his second dialysis today. Potassium level is down to 3.1. No EKG changes related to hyperkalemia. He is on 2 L of oxygen by nasal cannula and his pulse ox to 99%. White cell count of 15 with a hemoglobin of 10.0. The urine drug screen came back negative. He is arousable. He follows some simple commands comfortably. The most recent electrolytes showed a denying episodes and is down to 12 with a serum bicarb of 24. Sodium level is up to 131. 02/05/2022, the patient is again and anion gap metabolic acidosis. After his gap closed, I switched him to a Levemir NovoLog combination. 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 The most recent electrolytes showed anion gap metabolic acidosis with a serum bicarb of 13 and a gap of 18 with a sodium level of 126. Most recent blood sugars around 630. At this point in time, the patient is awake and alert. His tolerating diet. He underwent hemodialysis yesterday. His white cell count is 11.5 with hemoglobin 9.5 and a platelet count of 156. Based on all this, I'm recommending to put this patient back on an insulin drip for anion gap metabolic acidosis and recurrent DKA. Objective - Vital Signs Vital signs: Vital Signs Temp 98.5 F 02/05/22 00:00 Pulse 103 H 02/05/22 07:00 Resp 12 02/05/22 07:00 BP 140/69 02/05/22 07:00 Pulse Ox 97 02/05/22 07:00 FiO2 Intake & Output 02/04/22 02/05/22 02/05/22 18:59 06:59 18:59 Intake Total 2812.320 800 350 Output Total 1450 250 15 Balance 1362.320 550 335 Weight 82 kg 82 kg Intake: IV 2200 150 D5-0.45% NaCl with KCl 1800 150 20Meq/l 1,000 ml @ 150 mls/hr IV .[id number] [facility] Rx# :[id number] Potassium Chloride 10 meq 400 In Water For Injection 1 100ml.bag @ 100 mls/hr IVPB Q1HR [facility] Rx#: [id number] Intake, IV Titration 112.320 Amount Insulin Regular 100 unit 112.320 In Sodium Chloride 0.9% 100 ml @ 0.1 UNITS/KG/HR 5.498 mls/hr IV .[id number] [facility] Rx#:[id number] Oral 650 350 Hemodialysis 500 Output: Urine 450 250 15 Hemodialysis 1000 Other: Voiding Method Indwelling Catheter Indwelling Catheter # Bowel Movements 1 - Exam This is a 51-year-old male The patient is currently on 2 L O2 nasal cannula with a pulse ox of 99%. The patient is awake and alert and communicating at this point in time. He seems to be appropriate although sluggish and answering his questions. Head exam was generally normal. There was no scleral icterus or corneal arcus. Mucous membranes were dry at this point in time. Neck was supple and without jugular venous distension, thyromegaly, or carotid bruits. Carotids were easily palpable bilaterally. There was no adenopathy. CHEST EXAMINATION: Lungs are clear to auscultation. No chest wall tenderness is noted on palpation or with deep breathing. HEART EXAMINATION: Cardiac exam revealed the PMI to be normally situated and sized. The rhythm was regular and no extrasystoles were noted during several minutes of auscultation. The first and second heart sounds were normal and physiologic splitting of the second heart sound was noted. There were no murmu rs, rubs, clicks, or gallops. ABDOMEN: Soft, tender to palpation. Bowel sounds are heard. No organomegaly noted. EXTREMITIES: 2+ peripheral pulses with no evidence of peripheral edema and no calf tenderness noted. NEUROLOGIC EXAMINATION: Lethargic, sleepy, arousable, communicating. Skin revealed no evidence of significant rashes, suspicious appearing nevi or other concerning lesions. The patient has a permacath over the right anterior chest area extending to his right IJ. Sanchez catheter is in place - Labs CBC & Chem 7: 02/05/22 06:40 02/05/22 06:40 Labs: Abnormal Lab Results - Last 24 Hours (Table) 02/04/22 02/04/22 02/04/22 Range/Units 11:55 13:54 16:15 WBC (3.8-10.6) k/uL RBC (4.30-5.90) m/uL Hgb (13.0-17.5) gm/dL Hct (39.0-53.0) % MCHC (31.0-37.0) g/dL Neutrophils # (1.3-7.7) k/uL Lymphocytes # (1.0-4.8) k/uL Sodium (137-145) mmol/L Chloride (98-107) mmol/L Carbon Dioxide (22-30) mmol/L BUN (9-20) mg/dL Creatinine (0.66-1.25) mg/dL Glucose (74-99) mg/dL POC Glucose (mg/dL) 124 H 293 H 306 H (70-110) mg/dL Calcium (8.4-10.2) mg/dL Alkaline Phosphatase (38-126) U/L Total Protein (6.3-8.2) g/dL Albumin (3.5-5.0) g/dL 02/04/22 02/04/22 02/05/22 Range/Units 20:45 21:55 04:42 WBC (3.8-10.6) k/uL RBC (4.30-5.90) m/uL Hgb (13.0-17.5) gm/dL Hct (39.0-53.0) % MCHC (31.0-37.0) g/dL Neutrophils # (1.3-7.7) k/uL Lymphocytes # (1.0-4.8) k/uL Sodium 131 L (137-145) mmol/L Chloride (98-107) mmol/L Carbon Dioxide (22-30) mmol/L BUN 25 H (9-20) mg/dL Creatinine 4.23 H (0.66-1.25) mg/dL Glucose 170 H (74-99) mg/dL POC Glucose (mg/dL) 183 H >600 H (70-110) mg/dL Calcium 8.0 L (8.4-10.2) mg/dL Alkaline Phosphatase (38-126) U/L Total Protein (6.3-8.2) g/dL Albumin (3.5-5.0) g/dL 02/05/22 02/05/22 02/05/22 Range/Units 04:45 06:40 06:40 WBC 11.5 H (3.8-10.6) k/uL RBC 3.40 L (4.30-5.90) m/uL Hgb 9.5 L (13.0-17.5) gm/dL Hct 31.3 L (39.0-53.0) % MCHC 30.5 L (31.0-37.0) g/dL Neutrophils # 10.3 H (1.3-7.7) k/uL Lymphocytes # 0.7 L (1.0-4.8) k/uL Sodium 126 L (137-145) mmol/L Chloride 95 L (98-107) mmol/L Carbon Dioxide 13 L (22-30) mmol/L BUN 39 H (9-20) mg/dL Creatinine 4.82 H (0.66-1.25) mg/dL Glucose 630 H* (74-99) mg/dL POC Glucose (mg/dL) 574 H (70-110) mg/dL Calcium 7.5 L (8.4-10.2) mg/dL Alkaline Phosphatase 151 H (38-126) U/L Total Protein 4.4 L (6.3-8.2) g/dL Albumin 2.6 L (3.5-5.0) g/dL 02/05/22 02/05/22 Range/Units 06:43 07:46 WBC (3.8-10.6) k/uL RBC (4.30-5.90) m/uL Hgb (13.0-17.5) gm/dL Hct (39.0-53.0) % MCHC (31.0-37.0) g/dL Neutrophils # (1.3-7.7) k/uL Lymphocytes # (1.0-4.8) k/uL Sodium (137-145) mmol/L Chloride (98-107) mmol/L Carbon Dioxide (22-30) mmol/L BUN (9-20) mg/dL Creatinine (0.66-1.25) mg/dL Glucose (74-99) mg/dL POC Glucose (mg/dL) >600 H 555 H (70-110) mg/dL Calcium (8.4-10.2) mg/dL Alkaline Phosphatase (38-126) U/L Total Protein (6.3-8.2) g/dL Albumin (3.5-5.0) g/dL Microbiology - Last 24 Hours (Table) 02/03/22 14:15 Urine Culture - Final Urine,Voided Assessment and Plan Plan: Acute DKA with severe anion gap metabolic acidosis, after closure of the gap, the morning blood showed recurrent anion gap metabolic acidosis. His on this, I'm recommending to put the patient back on an insulin drip for tighter blood sugar control and correction of his anion gap metabolic acidosis. Acute hyperkalemia with EKG changes, recovered Acute pseudohyponatremia due to severe hyperglycemia Acute anion gap metabolic acidosis secondary to above, recurrent Altered mentation secondary to above and this is most likely related to metabolic encephalopathy in association with DKA, improved Severe dehydration secondary to above End stage renal disease and the patient is medically on hemodialysis 3 times a week Tuesdays and Saturdays and the patient has a right chest permacath Obstructive uropathy and the patient undergoes self-catheterization and the Sanchez catheter in place and the urine output is diminished at this point in time the patient has chronic hydronephrosis and chronic urinary retention. The patient undergone previous TURP in August 2014. Hypertension BPH and obstructive uropathy Previous history of perianal abscess/fistula requiring fistulotomy an incision and drainage Poor compliance with medical treatment Troponin leak, secondary to above, troponins at 0.139 Previous history of melanoma Plan Give the patient 10 units of NovoLog immediately IV and start him on a insulin drip at 8 units an hour and titrate insulin drip for his blood sugar control per DKA protocol. Will stop long-acting Levemir for now due to recurrent DKA anion gap metabolic acidosis Complete dialysis was done yesterday and nephrology is on the case Mental status is improved considerably. Keep the Sanchez catheter in place We'll continue to follow. We'll keep in ICU until the patient is further stabilized.
[2022-02-05] MEDS: D5-0.45% NACL WITH KCL 20MEQ/L 1,000 ML IV SCH (09:48)
[2022-02-05] MEDS: hydrALAZINE HCL 50 MG TAB PO SCH ×3 (09:51→21:06)
[2022-02-05] MEDS: PANTOPRAZOLE 40 MG/10 ML VIAL IVP SCH (09:52)
[2022-02-05 11:22] LABS: Glucose,Whole Blood 321 mg/dL (70-110)
--- NOTE | 2022-02-05 11:34 | P.PN ---
Subjective Patient is seen for follow-up for end-stage renal disease. He was admitted to the hospital with severe DKA and severe hyperkalemia and metabolic acidosis. Patient's DKA had resolved and insulin drip was discontinued yesterday however last night he went back into DKA with a serum sodium of 126 this morning, CO2 of 13 and blood sugar of 63 0 mg/dL. Currently back on insulin drip. No significant complaints No history of fever or chills or abdominal pain. Objective - Vital Signs Vital signs: Vital Signs Temp 98.5 F 02/05/22 00:00 Pulse 89 02/05/22 10:00 Resp 0 L 02/05/22 10:00 BP 161/82 02/05/22 10:00 Pulse Ox 96 02/05/22 09:00 FiO2 Intake & Output 02/04/22 02/05/22 02/05/22 18:59 06:59 18:59 Intake Total 2812.320 800 359.938 Output Total 1450 250 140 Balance 1362.320 550 219.938 Weight 82 kg 82 kg Intake: IV 2200 150 D5-0.45% NaCl with KCl 1800 150 20Meq/l 1,000 ml @ 150 mls/hr IV .[id number] [facility] Rx# :[id number] Potassium Chloride 10 meq 400 In Water For Injection 1 100ml.bag @ 100 mls/hr IVPB Q1HR [facility] Rx#: [id number] Intake, IV Titration 112.320 9.938 Amount Insulin Regular 100 unit 112.320 In Sodium Chloride 0.9% 100 ml @ 0.1 UNITS/KG/HR 5.498 mls/hr IV .[id number] [facility] Rx#:[id number] Insulin Regular 100 unit 9.938 In Sodium Chloride 0.9% 100 ml @ 0.1 UNITS/KG/HR 8.282 mls/hr IV .[id number] [facility] Rx#:[id number] Oral 650 350 Hemodialysis 500 Output: Urine 450 250 140 Hemodialysis 1000 Other: Voiding Method Indwelling Catheter Indwelling Catheter Indwelling Catheter # Bowel Movements 1 - Exam Patient is awake, comfortable, not in any acute distress Examination of the heart S1 and S2 Examination of the lungs bilateral breath sounds are heard [place] abdomen is soft nontender Examination of lower extremities shows no evidence of edema [employer] exam grossly intact - Labs CBC & Chem 7: 02/05/22 06:40 02/05/22 06:40 Labs: Abnormal Lab Results - Last 24 Hours (Table) 02/04/22 02/04/22 02/04/22 Range/Units 11:55 13:54 16:15 WBC (3.8-10.6) k/uL RBC (4.30-5.90) m/uL Hgb (13.0-17.5) gm/dL Hct (39.0-53.0) % MCHC (31.0-37.0) g/dL Neutrophils # (1.3-7.7) k/uL Lymphocytes # (1.0-4.8) k/uL Sodium (137-145) mmol/L Chloride (98-107) mmol/L Carbon Dioxide (22-30) mmol/L BUN (9-20) mg/dL Creatinine (0.66-1.25) mg/dL Glucose (74-99) mg/dL POC Glucose (mg/dL) 124 H 293 H 306 H (70-110) mg/dL Calcium (8.4-10.2) mg/dL Alkaline Phosphatase (38-126) U/L Total Protein (6.3-8.2) g/dL Albumin (3.5-5.0) g/dL 02/04/22 02/04/22 02/05/22 Range/Units 20:45 21:55 04:42 WBC (3.8-10.6) k/uL RBC (4.30-5.90) m/uL Hgb (13.0-17.5) gm/dL Hct (39.0-53.0) % MCHC (31.0-37.0) g/dL Neutrophils # (1.3-7.7) k/uL Lymphocytes # (1.0-4.8) k/uL Sodium 131 L (137-145) mmol/L Chloride (98-107) mmol/L Carbon Dioxide (22-30) mmol/L BUN 25 H (9-20) mg/dL Creatinine 4.23 H (0.66-1.25) mg/dL Glucose 170 H (74-99) mg/dL POC Glucose (mg/dL) 183 H >600 H (70-110) mg/dL Calcium 8.0 L (8.4-10.2) mg/dL Alkaline Phosphatase (38-126) U/L Total Protein (6.3-8.2) g/dL Albumin (3.5-5.0) g/dL 02/05/22 02/05/22 02/05/22 Range/Units 04:45 06:40 06:40 WBC 11.5 H (3.8-10.6) k/uL RBC 3.40 L (4.30-5.90) m/uL Hgb 9.5 L (13.0-17.5) gm/dL Hct 31.3 L (39.0-53.0) % MCHC 30.5 L (31.0-37.0) g/dL Neutrophils # 10.3 H (1.3-7.7) k/uL Lymphocytes # 0.7 L (1.0-4.8) k/uL Sodium 126 L (137-145) mmol/L Chloride 95 L (98-107) mmol/L Carbon Dioxide 13 L (22-30) mmol/L BUN 39 H (9-20) mg/dL Creatinine 4.82 H (0.66-1.25) mg/dL Glucose 630 H* (74-99) mg/dL POC Glucose (mg/dL) 574 H (70-110) mg/dL Calcium 7.5 L (8.4-10.2) mg/dL Alkaline Phosphatase 151 H (38-126) U/L Total Protein 4.4 L (6.3-8.2) g/dL Albumin 2.6 L (3.5-5.0) g/dL 02/05/22 02/05/22 02/05/22 Range/Units 06:43 07:46 11:14 WBC (3.8-10.6) k/uL RBC (4.30-5.90) m/uL Hgb (13.0-17.5) gm/dL Hct (39.0-53.0) % MCHC (31.0-37.0) g/dL Neutrophils # (1.3-7.7) k/uL Lymphocytes # (1.0-4.8) k/uL Sodium (137-145) mmol/L Chloride (98-107) mmol/L Carbon Dioxide (22-30) mmol/L BUN (9-20) mg/dL Creatinine (0.66-1.25) mg/dL Glucose (74-99) mg/dL POC Glucose (mg/dL) >600 H 555 H 321 H (70-110) mg/dL Calcium (8.4-10.2) mg/dL Alkaline Phosphatase (38-126) U/L Total Protein (6.3-8.2) g/dL Albumin (3.5-5.0) g/dL Microbiology - Last 24 Hours (Table) 02/03/22 14:15 Urine Culture - Final Urine,Voided Assessment and Plan Assessment: 1. End-stage renal disease on hemodialysis on a Tuesday schedule 2. Severe hyperkalemia associated with DKA 3. Severe DKA currently maintained on insulin drip 4. Hyponatremia associated with severe hyperglycemia with blood sugar of 1770 currently improved. Blood sugar was elevated again this morning at 6:30 and patient is back on insulin drip. 5. History of obstructive uropathy requiring straight catheterization at home currently with indwelling Sanchez catheter with about 400 mL of urine obtained on initial Sanchez catheter placement this hospitalization. 6. Severe metabolic acidosis secondary to DKA Plan: Continue with insulin drip Hemodialysis in a.m. The metabolic acidosis and hyponatremia will improve with improvement in blood sugars and resolution of DKA.
[2022-02-05 12:03] LABS: Glucose,Whole Blood 253 mg/dL (70-110)
[2022-02-05 13:08] LABS: Glucose,Whole Blood 141 mg/dL (70-110)
[2022-02-05] MEDS: SERTRALINE 50 MG TAB PO SCH (13:08)
[2022-02-05 13:16] LABS: Phosphorus 2.7 mg/dL (2.5-4.5); Potassium 4.1 mmol/L (3.5-5.1)
[2022-02-05 14:21] LABS: Glucose,Whole Blood 157 mg/dL (70-110)
[2022-02-05 14:21] LABS: Calcium 7.9 mg/dL (8.4-10.2); Potassium 4.1 mmol/L (3.5-5.1)
[2022-02-05 15:30] LABS: Glucose,Whole Blood 95 mg/dL (70-110)
[2022-02-05 17:26] LABS: Glucose,Whole Blood 90 mg/dL (70-110)
[2022-02-05] MEDS: INSULIN DETEMIR (LEVEMIR) 100 UNIT/ML SYR SQ SCH (18:22)
[2022-02-05] MEDS: lisinopriL 20 MG TAB PO SCH (21:06)
[2022-02-05 21:11] LABS: Glucose,Whole Blood 192 mg/dL (70-110)
[2022-02-06 06:05] LABS: Glucose,Whole Blood 23 mg/dL (70-110)
[2022-02-06 06:08] LABS: Glucose,Whole Blood 24 mg/dL (70-110)
[2022-02-06 06:23] LABS: Glucose,Whole Blood 97 mg/dL (70-110)
[2022-02-06] MEDS: INSULIN DETEMIR (LEVEMIR) 100 UNIT/ML SYR SQ SCH (06:51)
[2022-02-06 06:53] LABS: HCT 32.1 % (39.0-53.0); HGB 10.1 gm/dL (13.0-17.5); MCH 28.9 pg (25.0-35.0); MCHC 31.5 g/dL (31.0-37.0); MCV 91.7 fL (80.0-100.0); Mean Platelet Volume 7.8; Platelet Count 161 k/uL (150-450); RDW 13.1 % (11.5-15.5); WBC 8.3 k/uL (3.8-10.6)
[2022-02-06 07:03] LABS: Albumin 2.4 g/dL (3.5-5.0); Calcium 7.6 mg/dL (8.4-10.2); Total Bilirubin 0.4 mg/dL (0.2-1.3); Total Protein 4.4 g/dL (6.3-8.2)
[2022-02-06] MEDS: PROCHLORPERAZINE 10 MG TAB PO SCH ×2 (08:18→16:35)
[2022-02-06] MEDS: SERTRALINE 50 MG TAB PO SCH (08:18)
[2022-02-06] MEDS: carvediloL 6.25 MG TAB PO SCH ×2 (08:18→17:39)
[2022-02-06] MEDS: PANTOPRAZOLE 40 MG/10 ML VIAL IVP SCH (08:18)
[2022-02-06 08:27] LABS: Glucose,Whole Blood 196 mg/dL (70-110)
[2022-02-06] MEDS ORDERED: NICOTINE 21MG/24HR PATCH TRANSDERM SCH (09:00)
[2022-02-06] MEDS: hydrALAZINE HCL 50 MG TAB PO SCH ×2 (09:16→16:35)
--- NOTE | 2022-02-06 09:22 | P.PN ---
Subjective Patient is seen in follow-up for end-stage renal disease. He is maintained on hemodialysis on Tuesday schedule. Scheduled for dialysis today. Awake. Doesn't respond much to verbal commands. Denies any active complaints. Hemodynamically stable. Blood sugar was low and he did receive dexterous. Repeat blood sugar 196. Off IV fluids and insulin drip. Has been eating. Vital signs are stable. General: Awake. No acute distress. HEENT: Head exam is unremarkable. LUNGS: Breath sounds decreased. HEART: Rate and Rhythm are regular. ABDOMEN: Soft, no distention. EXTREMITITES: No edema. Objective - Vital Signs Vital signs: Vital Signs Temp 98.2 F 02/06/22 08:00 Pulse 85 02/06/22 08:00 Resp 15 02/06/22 08:00 BP 139/79 02/06/22 08:00 Pulse Ox 98 02/06/22 08:00 FiO2 Intake & Output 02/05/22 02/06/22 02/06/22 18:59 06:59 18:59 Intake Total 451.000 300 Output Total 455 1085 285 Balance -4.000 -785 -285 Weight 81 kg 81.2 kg Intake: Intake, IV Titration 101.000 Amount Insulin Regular 100 unit 101.000 In Sodium Chloride 0.9% 100 ml @ 0.1 UNITS/KG/HR 8.282 mls/hr IV .[id number] [facility] Rx#:[id number] Oral 350 300 Output: Urine 455 1085 285 Other: Voiding Method Indwelling Catheter Indwelling Catheter Indwelling Catheter - Labs CBC & Chem 7: 02/06/22 06:05 02/06/22 06:05 Labs: Abnormal Lab Results - Last 24 Hours (Table) 02/05/22 02/05/22 02/05/22 Range/Units 11:14 12:02 12:38 RBC (4.30-5.90) m/uL Hgb (13.0-17.5) gm/dL Hct (39.0-53.0) % Sodium 128 L (137-145) mmol/L Chloride 96 L (98-107) mmol/L Carbon Dioxide 21 L (22-30) mmol/L BUN 47 H (9-20) mg/dL Creatinine 5.23 H (0.66-1.25) mg/dL Glucose (74-99) mg/dL POC Glucose (mg/dL) 321 H 253 H (70-110) mg/dL Calcium (8.4-10.2) mg/dL Alkaline Phosphatase (38-126) U/L Total Protein (6.3-8.2) g/dL Albumin (3.5-5.0) g/dL 02/05/22 02/05/22 02/05/22 Range/Units 13:07 13:52 14:20 RBC (4.30-5.90) m/uL Hgb (13.0-17.5) gm/dL Hct (39.0-53.0) % Sodium 127 L (137-145) mmol/L Chloride 97 L (98-107) mmol/L Carbon Dioxide 20 L (22-30) mmol/L BUN 49 H (9-20) mg/dL Creatinine 5.09 H (0.66-1.25) mg/dL Glucose 123 H (74-99) mg/dL POC Glucose (mg/dL) 141 H 157 H (70-110) mg/dL Calcium 7.9 L (8.4-10.2) mg/dL Alkaline Phosphatase (38-126) U/L Total Protein (6.3-8.2) g/dL Albumin (3.5-5.0) g/dL 02/05/22 02/06/22 02/06/22 Range/Units 21:09 06:03 06:05 RBC (4.30-5.90) m/uL Hgb (13.0-17.5) gm/dL Hct (39.0-53.0) % Sodium 128 L (137-145) mmol/L Chloride (98-107) mmol/L Carbon Dioxide (22-30) mmol/L BUN 56 H (9-20) mg/dL Creatinine 5.81 H (0.66-1.25) mg/dL Glucose 216 H (74-99) mg/dL POC Glucose (mg/dL) 192 H 23 L (70-110) mg/dL Calcium 7.6 L (8.4-10.2) mg/dL Alkaline Phosphatase 192 H (38-126) U/L Total Protein 4.4 L (6.3-8.2) g/dL Albumin 2.4 L (3.5-5.0) g/dL 02/06/22 02/06/22 02/06/22 Range/Units 06:05 06:05 08:26 RBC 3.50 L (4.30-5.90) m/uL Hgb 10.1 L (13.0-17.5) gm/dL Hct 32.1 L (39.0-53.0) % Sodium (137-145) mmol/L Chloride (98-107) mmol/L Carbon Dioxide (22-30) mmol/L BUN (9-20) mg/dL Creatinine (0.66-1.25) mg/dL Glucose (74-99) mg/dL POC Glucose (mg/dL) 24 L 196 H (70-110) mg/dL Calcium (8.4-10.2) mg/dL Alkaline Phosphatase (38-126) U/L Total Protein (6.3-8.2) g/dL Albumin (3.5-5.0) g/dL Assessment and Plan Plan: Assessment: 1. End-stage renal disease maintained on hemodialysis on Tuesday schedule. Etiology is obstructive uropathy. 2. DKA status post IV fluids and insulin drip. 3. Hyponatremia secondary to chronic kidney disease. 4. Hypertension with chronic kidney disease. 5. Metabolic acidosis secondary to DKA. Improved. Plan: Hemodialysis today. Phosphorus 2.7 dated 02/05/2022. Blood sugar control. Okay to remove Sanchez catheter from nephrology standpoint. Patient performs self catheterizations at home.
--- NOTE | 2022-02-06 10:16 | P.PN ---
Subjective Progress Note Date: 02/06/22 51-year-old male patient with an incisional disease was currently admitted to [facility] because of altered mentation and hyperglycemia and DKA. The patient was discharged from the hospital recently and he was discharged home. The patient was supposed to continue his hemodialysis as outpatient basis Tuesdays and Saturdays. I think is an issue with compliance. The patient apparently was not taking his insulin recently. He was found crawling around and a hotel by family. The patient was confused and he was unable to provide much history. Denies having any chest pain. Denies having any shortness of breath. He apparently has been eating poorly and he was not using any of his medication. For that reason, the patient was brought into the emergency. He was afebrile. He was slightly tachycardic. His BP was 120/53. His initial blood gas showed a pH of 7.01 with a pCO2 less than 15 and a pO2 of 156. His rest of the blood work showed a white cell count of 12.3 with a hemoglobin of 11.4 and a platelet count of 298. His sodium level was 111 potassium level was at 7.8 chloride was 71 serum bicarbonate was less than 5, a BUN of 47 with a creatinine of 7.25 and a glucose level of 1770 with a phosphorus level of 9.8 and a calcium level of 7.7. LFTs were normal, troponin was at 0.139 with a total protein of 5.6 and albumin of 3.8. At that point, the patient was admitted to the intensive care unit for treatment of DKA. In the emergency, the patient was started on insulin drip. He was given insulin bolus in the emergency and following that he was started on insulin drip which is currently running at 5 units an hour and this will be adjusted based on his DKA protocol. Most recent blood sugar is at 600 and above. The patient has a Sanchez catheter in place. Urine output is minimal and order 100 mL his since he arrived to the intensive care unit. He is also on IV fluids at 75 mL an hour of normal saline. The patient was given fluids in the emergency, a total of 1 L bolus only. He does have a permacath over the right IJ. Chest x-ray was done in the emergency department showed no acute abnormalities. The hyperkalemia was treated in the emergency with calcium gluconate, bicarb and 10 units of regular insulin and a repeat potassium level is currently at 7.8. Today's evaluation of 02/04/2022, the patient is being seen for a follow-up. He is somewhat still encephalopathic although he is arousable and he communicates. There has been significant improvement in his electrolyte balance since yesterday. As mentioned, this patient was found in a hotel and he was not taking any of his medications. His sugars were extremely high. He was in DKA. He got dialyzed yesterday. He was also placed on an insulin drip that was run gil at one point as high as 14 units an hour. Currently the insulin drip is down to 2 units an hour and the most recent blood sugars of 113 and the patient is on D5 half-normal saline today to have 1 50 mL an hour. Urine output is minimal as the patient has incisional disease and the patient is in the process of obtaining his second dialysis today. Potassium level is down to 3.1. No EKG changes related to hyperkalemia. He is on 2 L of oxygen by nasal cannula and his pulse ox to 99%. White cell count of 15 with a hemoglobin of 10.0. The urine drug screen came back negative. He is arousable. He follows some simple commands comfortably. The most recent electrolytes showed a denying episodes and is down to 12 with a serum bicarb of 24. Sodium level is up to 131. 02/05/2022, the patient is again and anion gap metabolic acidosis. After his gap closed, I switched him to a Levemir NovoLog combination. Nevertheless, in the early childhood associate hours, the sugars came back up and it was in the 506 100s range. The most recent electrolytes showed anion gap metabolic acidosis with a serum bicarb of 13 and a gap of 18 with a sodium level of 126. Most recent blood sugars around 630. At this point in time, the patient is awake and alert. His tolerating diet. He underwent hemodialysis yesterday. His white cell count is 11.5 with hemoglobin 9.5 and a platelet count of 156. Based on all this, I'm recommending to put this patient back on an insulin drip for anion gap metabolic acidosis and recurrent DKA. 02/06/2022, I'm seeing the patient for a follow-up. As mentioned earlier, the patient was placed back on an insulin drip due to a recurrent DKA. The anion gap closed and the patient's most recent electrolytes show a serum bicarb of 22 with a gap of 7. Based on that, the patient was switched to long-acting insulin initially on Levemir 30 units twice a day. He did have episodes of hypoglycemia this morning and the patient was treated accordingly. Most recent blood sugar is at 196. He is currently on Levemir 15 units twice a day along with that he is on NovoLog signs. The patient is currently undergoing hemodialysis. He has a flat affect. He is on room air oxygen. No other complaints otherwise. Is following commands appropriately. No fever. No chills. No hemodynamic instability. No other complaints otherwise. His night was otherwise uneventful. Objective - Vital Signs Vital signs: Vital Signs Temp 98.2 F 02/06/22 08:00 Pulse 78 02/06/22 10:00 Resp 14 02/06/22 10:00 BP 120/60 02/06/22 10:00 Pulse Ox 97 02/06/22 10:00 FiO2 Intake & Output 02/05/22 02/06/22 02/06/22 18:59 06:59 18:59 Intake Total 451.000 300 Output Total 455 1085 350 Balance -4.000 -785 -350 Weight 81 kg 81.2 kg Intake: Intake, IV Titration 101.000 Amount Insulin Regular 100 unit 101.000 In Sodium Chloride 0.9% 100 ml @ 0.1 UNITS/KG/HR 8.282 mls/hr IV .[id number] [facility] Rx#:[id number] Oral 350 300 Output: Urine 455 1085 350 Other: Voiding Method Indwelling Catheter Indwelling Catheter Indwelling Catheter - Exam This is a 51-year-old male The patient is currently on RA O2 nasal cannula with a pulse ox of 99%. The patient is awake and alert and communicating at this point in time. He seems to be appropriate although sluggish and answering his questions. Head exam was generally normal. There was no scleral icterus or corneal arcus. Mucous membranes were dry at this point in time. Neck was supple and without jugular venous distension, thyromegaly, or carotid bruits. Carotids were easily palpable bilaterally. There was no adenopathy. CHEST EXAMINATION: Lungs are clear to auscultation. No chest wall tenderness is noted on palpation or with deep breathing. HEART EXAMINATION: Cardiac exam revealed the PMI to be normally situated and sized. The rhythm was regular and no extrasystoles were noted during several minutes of auscultation. The first and second heart sounds were normal and physiologic splitting of the second heart sound was noted. There were no murmurs, rubs, clicks, or gallops. ABDOMEN: Soft, tender to palpation. Bowel sounds are heard. No organomegaly noted. EXTREMITIES: 2+ peripheral pulses with no evidence of peripheral edema and no calf tenderness noted. NEUROLOGIC EXAMINATION: Lethargic, sleepy, arousable, communicating. Skin revealed no evidence of significant rashes, suspicious appearing nevi or other concerning lesions. The patient has a permacath over the right anterior chest area extending to his right IJ. Sanchez catheter is in place - Labs CBC & Chem 7: 02/06/22 06:05 02/06/22 06:05 Labs: Abnormal Lab Results - Last 24 Hours (Table) 02/05/22 02/05/22 02/05/22 Range/Units 11:14 12:02 12:38 RBC (4.30-5.90) m/uL Hgb (13.0-17.5) gm/dL Hct (39.0-53.0) % Sodium 128 L (137-145) mmol/L Chloride 96 L (98-107) mmol/L Carbon Dioxide 21 L (22-30) mmol/L BUN 47 H (9-20) mg/dL Creatinine 5.23 H (0.66-1.25) mg/dL Glucose (74-99) mg/dL POC Glucose (mg/dL) 321 H 253 H (70-110) mg/dL Calcium (8.4-10.2) mg/dL Alkaline Phosphatase (38-126) U/L Total Protein (6.3-8.2) g/dL Albumin (3.5-5.0) g/dL 02/05/22 02/05/22 02/05/22 Range/Units 13:07 13:52 14:20 RBC (4.30-5.90) m/uL Hgb (13.0-17.5) gm/dL Hct (39.0-53.0) % Sodium 127 L (137-145) mmol/L Chloride 97 L (98-107) mmol/L Carbon Dioxide 20 L (22-30) mmol/L BUN 49 H (9-20) mg/dL Creatinine 5.09 H (0.66-1.25) mg/dL Glucose 123 H (74-99) mg/dL POC Glucose (mg/dL) 141 H 157 H (70-110) mg/dL Calcium 7.9 L (8.4-10.2) mg/dL Alkaline Phosphatase (38-126) U/L Total Protein (6.3-8.2) g/dL Albumin (3.5-5.0) g/dL 02/05/22 02/06/22 02/06/22 Range/Units 21:09 06:03 06:05 RBC (4.30-5.90) m/uL Hgb (13.0-17.5) gm/dL Hct (39.0-53.0) % Sodium 128 L (137-145) mmol/L Chloride (98-107) mmol/L Carbon Dioxide (22-30) mmol/L BUN 56 H (9-20) mg/dL Creatinine 5.81 H (0.66-1.25) mg/dL Glucose 216 H (74-99) mg/dL POC Glucose (mg/dL) 192 H 23 L (70-110) mg/dL Calcium 7.6 L (8.4-10.2) mg/dL Alkaline Phosphatase 192 H (38-126) U/L Total Protein 4.4 L (6.3-8.2) g/dL Albumin 2.4 L (3.5-5.0) g/dL 02/06/22 02/06/22 02/06/22 Range/Units 06:05 06:05 08:26 RBC 3.50 L (4.30-5.90) m/uL Hgb 10.1 L (13.0-17.5) gm/dL Hct 32.1 L (39.0-53.0) % Sodium (137-145) mmol/L Chloride (98-107) mmol/L Carbon Dioxide (22-30) mmol/L BUN (9-20) mg/dL Creatinine (0.66-1.25) mg/dL Glucose (74-99) mg/dL POC Glucose (mg/dL) 24 L 196 H (70-110) mg/dL Calcium (8.4-10.2) mg/dL Alkaline Phosphatase (38-126) U/L Total Protein (6.3-8.2) g/dL Albumin (3.5-5.0) g/dL Assessment and Plan Plan: Acute DKA with severe anion gap metabolic acidosis, recovered currently on Levemir insulin Acute hyperkalemia with EKG changes, recovered Acute pseudohyponatremia due to severe hyperglycemia Acute anion gap metabolic acidosis secondary to above, recurrent Altered mentation secondary to above and this is most likely related to metabolic encephalopathy in association with DKA, improved Severe dehydration secondary to above End stage renal disease and the patient is medically on hemodialysis 3 times a week Tuesdays and Saturdays and the patient has a right chest permacath Obstructive uropathy and the patient undergoes self-catheterization and the Sanchez catheter in place and the urine output is diminished at this point in time the patient has chronic hydronephrosis and chronic urinary retention. The patient undergone previous TURP in August 2014. Hypertension BPH and obstructive uropathy Previous history of perianal abscess/fistula requiring fistulotomy an incision and drainage Poor compliance with medical treatment Troponin leak, secondary to above, troponins at 0.139 Previous history of melanoma Plan Continue long-acting Levemir 15 units twice a day and the patient will placed on a scale coverage Complete dialysis Mental status is improved considerably. We'll continue to follow. May transfer out of the intensive care unit after completing hemodialysis.
[2022-02-06 11:30] LABS: Glucose,Whole Blood 183 mg/dL (70-110)
[2022-02-06] MEDS: INSULIN ASPART (NovoLOG) 100 UNIT/ML VIAL SQ SCH ×2 (11:59→17:34)
[2022-02-06 14:46] VITALS: BP 152/80; RESP 18; TEMP 97.5
[2022-02-06 16:53] LABS: Glucose,Whole Blood 135 mg/dL (70-110)
[2022-02-06] MEDS ORDERED: INSULIN DETEMIR (LEVEMIR) 100 UNIT/ML SYR SQ SCH (18:00)
[2022-02-06 18:37] VITALS: PULSE 79
--- NOTE | 2022-02-06 19:53 | P.PN ---
Subjective This is a pleasant 51 years old male with multiple medical problems including diabetes mellitus on insulin and end-stage renal disease on hemodialysis, hypertension. Presents because of signs and symptoms of diabetic ketoacidosis and with metabolic encephalopathy. He found to be in DKA and treated in the ICU per protocol Today he is fully awake and oriented, however he was lethargic in the morning. He is slow to answer questions but his questions are appropriate and he is alert awake oriented 2-3. HE does not know about his illness and patient was reoriented. He can get valid information. He states that he takes to CPAP insulin 28 units at bedtime, associated with NovoLog sliding scale. Prior to admission has been having vomiting for 2 days and he could not take any medication and he forgot. Currently has no abdominal pain. Patient had diarrhea earlier. He states he makes some urine but does not burn him. He does self-catheterization at home. No headache or weakness or numbness. No chest pain or dyspnea. His sugar was low and Levemir [place] to 15 units twice a day Objective - Vital Signs Vital signs: Vital Signs Temp 98.2 F 02/06/22 08:00 Pulse 78 02/06/22 10:00 Resp 14 02/06/22 10:00 BP 120/60 02/06/22 10:00 Pulse Ox 97 02/06/22 10:00 FiO2 Intake & Output 02/05/22 02/06/22 02/06/22 18:59 06:59 18:59 Intake Total 451.000 300 Output Total 455 1085 350 Balance -4.000 -785 -350 Weight 81 kg 81.2 kg Intake: Intake, IV Titration 101.000 Amount Insulin Regular 100 unit 101.000 In Sodium Chloride 0.9% 100 ml @ 0.1 UNITS/KG/HR 8.282 mls/hr IV .[id number] [facility] Rx#:[id number] Oral 350 300 Output: Urine 455 1085 350 Other: Voiding Method Indwelling Catheter Indwelling Catheter Indwelling Catheter - Exam -GENERAL: The patient is alert and oriented x3, not in any acute distress. Well developed, well nourished. Lethargic HEENT: Pupils are round and equally reacting to light. EOMI. No scleral icterus. No conjunctival pallor. Normocephalic, atraumatic. No pharyngeal erythema. No t hyromegaly. CARDIOVASCULAR: S1 and S2 present. No murmurs, rubs, or gallops. PULMONARY: Chest is clear to auscultation, no wheezing or crackles. ABDOMEN: Soft, nontender, nondistended, normoactive bowel sounds. No palpable organomegaly. MUSCULOSKELETAL: No joint swelling or deformity. EXTREMITIES: No cyanosis, clubbing, or pedal edema. NEUROLOGICAL: Gross neurological examination did not reveal any focal deficits. SKIN: No rashes. no petechiae. - Labs CBC & Chem 7: 02/06/22 06:05 02/06/22 06:05 Labs: Abnormal Lab Results - Last 24 Hours (Table) 02/05/22 02/05/22 02/05/22 Range/Units 11:14 12:02 12:38 RBC (4.30-5.90) m/uL Hgb (13.0-17.5) gm/dL Hct (39.0-53.0) % Sodium 128 L (137-145) mmol/L Chloride 96 L (98-107) mmol/L Carbon Dioxide 21 L (22-30) mmol/L BUN 47 H (9-20) mg/dL Creatinine 5.23 H (0.66-1.25) mg/dL Glucose (74-99) mg/dL POC Glucose (mg/dL) 321 H 253 H (70-110) mg/dL Calcium (8.4-10.2) mg/dL Alkaline Phosphatase (38-126) U/L Total Protein (6.3-8.2) g/dL Albumin (3.5-5.0) g/dL 02/05/22 02/05/22 02/05/22 Range/Units 13:07 13:52 14:20 RBC (4.30-5.90) m/uL Hgb (13.0-17.5) gm/dL Hct (39.0-53.0) % Sodium 127 L (137-145) mmol/L Chloride 97 L (98-107) mmol/L Carbon Dioxide 20 L (22-30) mmol/L BUN 49 H (9-20) mg/dL Creatinine 5.09 H (0.66-1.25) mg/dL Glucose 123 H (74-99) mg/dL POC Glucose (mg/dL) 141 H 157 H (70-110) mg/dL Calcium 7.9 L (8.4-10.2) mg/dL Alkaline Phosphatase (38-126) U/L Total Protein (6.3-8.2) g/dL Albumin (3.5-5.0) g/dL 02/05/22 02/06/22 02/06/22 Range/Units 21:09 06:03 06:05 RBC (4.30-5.90) m/uL Hgb (13.0-17.5) gm/dL Hct (39.0-53.0) % Sodium 128 L (137-145) mmol/L Chloride (98-107) mmol/L Carbon Dioxide (22-30) mmol/L BUN 56 H (9-20) mg/dL Creatinine 5.81 H (0.66-1.25) mg/dL Glucose 216 H (74-99) mg/dL POC Glucose (mg/dL) 192 H 23 L (70-110) mg/dL Calcium 7.6 L (8.4-10.2) mg/dL Alkaline Phosphatase 192 H (38-126) U/L Total Protein 4.4 L (6.3-8.2) g/dL Albumin 2.4 L (3.5-5.0) g/dL 02/06/22 02/06/22 02/06/22 Range/Units 06:05 06:05 08:26 RBC 3.50 L (4.30-5.90) m/uL Hgb 10.1 L (13.0-17.5) gm/dL Hct 32.1 L (39.0-53.0) % Sodium (137-145) mmol/L Chloride (98-107) mmol/L Carbon Dioxide (22-30) mmol/L BUN (9-20) mg/dL Creatinine (0.66-1.25) mg/dL Glucose (74-99) mg/dL POC Glucose (mg/dL) 24 L 196 H (70-110) mg/dL Calcium (8.4-10.2) mg/dL Alkaline Phosphatase (38-126) U/L Total Protein (6.3-8.2) g/dL Albumin (3.5-5.0) g/dL Assessment and Plan Assessment: Diabetes mellitus with hyperglycemia Diabetic ketoacidosis because of non-adherence to treatment Possible mild gastroenteritis present on admission, now is improving End-stage renal disease on hemodialysis. Hypertension Plan: This is a pleasant 51 years old male who presents with DKA. Now sugar control Levemir 15 units twice a day Nephrology team for hemodialysis Pulmonary input is appreciated Labs and medication were reviewed.. Continue same treatment. Continue with symptomatic treatment. Resume home medication. Monitor lytes and vitals. DVT and GI prophylaxis. Further recommendations as per clinical course of the patient DVT prophylaxis: Subcutaneous heparin GI Prophylaxis: Ppi
[2022-02-06] MEDS ORDERED: HEPARIN SODIUM,PORCINE/PF 5,000 UNIT/0.5 ML SYRINGE SQ SCH (21:00)
--- NOTE | 2022-02-07 06:33 | P.DS ---
Providers Date of admission: 02/03/22 12:36 Attending physician: Cristi Mary Consults: 02/03/22 14:07 Consult Physician Urgent Consulting Provider: Juan Francisco Armstrong Consult Reason/Comments: ICU Do you want consulting provider notified?: Already Contacted 02/03/22 14:48 Consult Physician Stat Consulting Provider: Klarissa Williamson Consult Reason/Comments: ESRD/needs emergent dialysis Do you want consulting provider notified?: Yes Primary care physician: Cristi Mary Hospital Course: Please note patient was not discharged but left AMA. Patient decided to leave AMA before I have a chance to see him or talk to him. Based upon my evaluation earlier patient has capacity to make medical decisions for himself. Patient Condition at Discharge: Critical Plan - Discharge Summary Discharge Rx Participant: Yes New Discharge Prescriptions: No Action Insulin Aspart [NovoLOG Flexpen] See Protocol SQ AC-TID lisinopriL [Zestril] 40 mg PO HS Insulin Degludec [Tresiba Flextouch U-200 Pen] 70 units SQ HS Hyoscyamine Sulfate [Levbid] 0.375 mg PO Q12HR PRN PRN Reason: CRAMPING Sertraline HCl [Zoloft] 25 mg PO DAILY Lansoprazole 30 mg PO DAILY Ondansetron [Zofran] 4 mg PO Q6H PRN PRN Reason: Nausea Prochlorperazine [Compazine] 10 mg PO TID hydrALAZINE HCL [Apresoline] 100 mg PO TID carvediloL [Coreg] 6.25 mg PO BID Ergocalciferol [Vitamin D2 (1250 Mcg = 56387 Iu)] 1,250 mcg PO WEEKLY Discharge Medication List Insulin Aspart [NovoLOG Flexpen] See Protocol SQ AC-TID 07/09/19 [History] Insulin Degludec [Tresiba Flextouch U-200 Pen] 70 units SQ HS 03/18/21 [History] lisinopriL [Zestril] 40 mg PO HS 03/18/21 [History] Lansoprazole 30 mg PO DAILY 04/07/21 [History] Ondansetron [Zofran] 4 mg PO Q6H PRN 11/28/21 [History] Hyoscyamine Sulfate [Levbid] 0.375 mg PO Q12HR PRN 01/26/22 [History] Prochlorperazine [Compazine] 10 mg PO TID 01/26/22 [History] hydrALAZINE HCL [Apresoline] 100 mg PO TID 01/26/22 [History] Ergocalciferol [Vitamin D2 (1250 Mcg = 14422 Iu)] 1,250 mcg PO WEEKLY 02/01/22 [History] Sertraline HCl [Zoloft] 25 mg PO DAILY 02/01/22 [History] carvediloL [Coreg] 6.25 mg PO BID 02/01/22 [History] Follow up Appointment(s)/Referral(s): Cristi Mary MD [Primary Care Provider] - 1-2 days Discharge Disposition: Left Against Medical Advice
== END 2022-02-06 23:50 | disposition left against medical advice (07) | DRG 637 ==
LOC: EC 11:17 → 2SICU 12:36 → 4SSUR 02-06 13:55
PROVIDERS: ADMIT Family Medicine; ATTEND Family Medicine
PROC: 5A1D70Z Performance of Urinary Filtration, Intermittent, Less than 6 Hours Per Day (ICD-10-PCS; principal; 2022-02-04)
DX: E11.10 Type 2 diabetes mellitus with ketoacidosis without coma (principal); G93.41 Metabolic encephalopathy; N18.6 End stage renal disease; I12.0 Hypertensive chronic kidney disease with stage 5 chronic kidney disease or end stage renal disease; N13.39 Other hydronephrosis; N13.8 Other obstructive and reflux uropathy; E83.39 Other disorders of phosphorus metabolism; E11.22 Type 2 diabetes mellitus with diabetic chronic kidney disease; E11.40 Type 2 diabetes mellitus with diabetic neuropathy, unspecified; E11.649 Type 2 diabetes mellitus with hypoglycemia without coma; Z99.2 Dependence on renal dialysis; Z79.4 Long term (current) use of insulin; Z91.15 Patient's noncompliance with renal dialysis; E87.5 Hyperkalemia; I45.10 Unspecified right bundle-branch block; E86.0 Dehydration; N40.1 Benign prostatic hyperplasia with lower urinary tract symptoms; R33.8 Other retention of urine; K52.9 Noninfective gastroenteritis and colitis, unspecified; K21.9 Gastro-esophageal reflux disease without esophagitis; F17.210 Nicotine dependence, cigarettes, uncomplicated; R77.8 Other specified abnormalities of plasma proteins; Z53.21 Procedure and treatment not carried out due to patient leaving prior to being seen by health care provider; Z91.19 Patient's noncompliance with other medical treatment and regimen; Z79.899 Other long term (current) drug therapy; Z87.440 Personal history of urinary (tract) infections; Z85.820 Personal history of malignant melanoma of skin; Z83.3 Family history of diabetes mellitus
CPT/HCPCS: 36415; 36600; 71045; 80048; 80051; 80053; 80306; 81001; 82565; 82805; 82947; 83735; 84100; 84132; 84484; 84520; 85025; 85027; 85610; 85730; 87086; 90935; 93005; 94640; 96365; 96366; 96375; 99291

== ENCOUNTER 2022-02-11 07:20 | Inpatient (IN) | payer OTHER ==
[2022-02-11 07:30] LABS: Glucose,Whole Blood 543 mg/dL (70-110)
[2022-02-11] MEDS ORDERED: SODIUM CHLORIDE 0.9% 1,000 ML IV ONE ×2 (07:33→08:48)
[2022-02-11] MEDS ORDERED: SODIUM BICARB 8.4% 50 ML SYR (1 MEQ/ML) IV STA ×2 (07:34→08:10)
[2022-02-11] MEDS ORDERED: SUCCINYLCHOLINE CHLORIDE 200 MG/10 ML VIAL IV STA (07:34)
[2022-02-11 08:01] LABS: ALT 19 U/L (4-49); AST 24 U/L (17-59); African American GFR (CKD) 5 (>60 ml/min/1.73 sqM); Albumin 3.3 g/dL (3.5-5.0); Alcohol <10 mg/dL; Alkaline Phosphatase 243 U/L (38-126); Anion Gap 32 mmol/L; Blood Urea Nitrogen 82 mg/dL (9-20); Calcium 8.1 mg/dL (8.4-10.2); Chloride 86 mmol/L (98-107); Non-African American GFR(CKD) 5 (>60 ml/min/1.73 sqM); Sodium 125 mmol/L (137-145); Total Bilirubin 0.5 mg/dL (0.2-1.3); Total Protein 5.2 g/dL (6.3-8.2)
--- NOTE | 2022-02-11 08:05 | ED ---
General Adult HPI - General Chief complaint: Altered Mental Status Stated complaint: Unresponsive Time Seen by Provider: 02/11/22 07:21 Source: EMS Mode of arrival: EMS Limitations: altered mental status, physical limitation - History of Present Illness Initial comments: Patient is unresponsive 51-year-old male presenting to the emergency department by EMS. Patient unable to provide history. Patient found unresponsive on the floor this morning. Per EMS this is happened several times previously. Patient is reportedly an uncontrolled diabetic. Patient is supposed to go for dialysis today, last was 2 days ago. - Related Data Home Medications Medication Instructions Recorded Confirmed Insulin Aspart [NovoLOG Flexpen] See Protocol SQ AC-TID 07/09/19 02/03/22 Insulin Degludec [Tresiba 70 units SQ HS 03/18/21 02/03/22 Flextouch U-200 Pen] lisinopriL [Zestril] 40 mg PO HS 03/18/21 02/03/22 Lansoprazole 30 mg PO DAILY 04/07/21 02/03/22 Ondansetron [Zofran] 4 mg PO Q6H PRN 11/28/21 02/03/22 Hyoscyamine Sulfate [Levbid] 0.375 mg PO Q12HR PRN 01/26/22 02/03/22 Prochlorperazine [Compazine] 10 mg PO TID 01/26/22 02/03/22 hydrALAZINE HCL [Apresoline] 100 mg PO TID 01/26/22 02/03/22 Ergocalciferol [Vitamin D2 (1250 1,250 mcg PO WEEKLY 02/01/22 02/03/22 Mcg = 03049 Iu)] Sertraline HCl [Zoloft] 25 mg PO DAILY 02/01/22 02/03/22 carvediloL [Coreg] 6.25 mg PO BID 02/01/22 02/03/22 Allergies Allergy/AdvReac Type Severity Reaction Status Date / Time No Known Allergies Allergy Verified 02/03/22 12:46 Review of Systems ROS Statement: Those systems with pertinent positive or pertinent negative responses have been documented in the HPI. ROS Other: All systems not noted in ROS Statement are negative. Limitations: ROS unobtainable due to patients medical condition Past Medical History Past Medical History: Diabetes Mellitus, GERD/Reflux, Renal Disease Additional Past Medical History / Comment(s): IDDM type II, diabetic neuropathy bilateral feet, DKA, ESRD on HD, past perianal abscess/fistula with surgery, BPH/urinary retention with surgery, UTI. self cath four times a day, dialysis Tues/thur/sat History of Any Multi-Drug Resistant Organisms: None Reported Past Surgical History: No Surgical Hx Reported Additional Past Surgical History / Comment(s): 08/2014 cystoscopy with TURP, rectal exam/I&D/fistulotomy. I&D back Past Anesthesia/Blood Transfusion Reactions: No Reported Reaction Past Psychological History: No Psychological Hx Reported Smoking Status: Current every day smoker Past Alcohol Use History: None Reported Past Drug Use History: None Reported - Past Family History Mother Family Medical History: Diabetes Mellitus Additional Family Medical History / Comment(s): mother is Father Family Medical History: No Reported History Additional Family Medical History / Comment(s): Father is healthy. General Exam Limitations: altered mental status General appearance: obtunded Head exam: Present: atraumatic Eye exam: Present: normal appearance, PERRL ENT exam: Present: mucous membranes dry Neck exam: Present: normal inspection Respiratory exam: Present: normal lung sounds bilaterally Cardiovascular Exam: Present: tachycardia Expanded Peripheral pulses: 2+: Carotid (R), Carotid (L), Radial (R), Radial (L), Femoral (R), Femoral (L), Posterior Tibialis (R), Posterior Tibialis (L), Dorsalis Pedis (R), Dorsalis Pedis (L) GI/Abdominal exam: Present: soft. Absent: tenderness exam: Present: normal inspection Extremities exam: Present: normal inspection Neurological exam: Present: altered Expanded Eye Response: (1) no response Motor Response: (1) no motor response Verbal Response: (1) no verbal response Skin exam: Present: normal color Course Vital Signs 02/11/22 02/11/22 02/11/22 07:21 07:25 07:35 Pulse Rate 156 H 161 H Respiratory 24 25 H Rate Blood Pressure 111/44 93/45 O2 Sat by Pulse 100 95 Oximetry Fraction of 100 Inspired Oxygen (FIO2) 02/11/22 02/11/22 02/11/22 07:52 08:11 09:08 Pulse Rate 161 H Respiratory 18 Rate Blood Pressure 104/49 O2 Sat by Pulse 100 Oximetry Fraction of 100 50 Inspired Oxygen (FIO2) - Reevaluation(s) Reevaluation #1: 02/11/22 08:46 Patient again reevaluated. Vital signs improved. ET tube advanced from 21-24 02/11/22 09:04 Case was discussed with Dr. Silverman who will come evaluate the patient 02/11/22 09:16 Case also discussed with Dr. Dubon, who will consult. Case also discussed with Dr. Mary, who will admit his patient. Patient again reevaluated. Aunt is present and is updated. EKG Findings - EKG Comments: EKG Findings:: Wide-complex rhythm with a rate of 82. W[place] 88. QRS to T1. QT 45. QTC 523. Right sided bundle-branch Block. Right axis. ST depression. Prominent T waves. Wide QRS complex. Procedures - ABG Interpretation Ph: 6.69 PCO2: 33.3 PO2: 400 Bicarbonate: 4.1 - Central Line Placement Right Femoral Consent Obtained: emergent situation Patient Placed on Monitor/Pulse Ox: Yes MD Prep: mask, gown, gloves Central Line Prep: Chlorhexidine scrub Central Line Lumen Inserted: triple Central Line Position: good blood return, all ports aspirated, flushed, capped Dressing Applied: Tegaderm Patient Tolerated Procedure: well Complications: other (Pulsatile blood with concern for arterial placement. There for line was removed.) Left Femoral Consent Obtained: emergent situation Patient Placed on Monitor/Pulse Ox: Yes Prep: mask, gown, gloves Central Line Prep: Chlorhexidine scrub, sterile drapes applied Central Line Lumen Inserted: triple Central Line Position: good blood return, all ports aspirated, flushed, capped, sutured in place with 3-0 nylon Patient Tolerated Procedure: well, no complications Complications: none - Intubation Paralytic: Succinylcholine Laryngoscope: Allison Size: 3 ET Tube Size: 8 Tube Placement Confirmation: visualized tube passing through cords, equal breath sounds bilaterally, no breath sounds over epigastrium Patient Tolerated Procedure: well, no complications Intubation Complications: none Medical Decision Making - Lab Data Result diagrams: 02/11/22 07:45 02/11/22 07:45 Lab Results 02/11/22 02/11/22 02/11/22 Range/Units 07:28 07:45 07:45 WBC 23.7 H (3.8-10.6) k/uL RBC 3.90 L (4.30-5.90) m/uL Hgb 11.1 L (13.0-17.5) gm/dL Hct 43.2 (39.0-53.0) % MCV 110.7 H D (80.0-100.0) fL MCH 28.4 (25.0-35.0) pg MCHC 25.6 L (31.0-37.0) g/dL RDW 12.9 (11.5-15.5) % Plt Count 446 D (150-450) k/uL MPV 10.2 Neutrophils % Not Reportable Neutrophils % (Manual) 85 % Band Neuts % (Manual) 1 % Lymphocytes % Not Reportable Lymphocytes % (Manual) 4 % Monocytes % Not Reportable Monocytes % (Manual) 8 % Eosinophils % Not Reportable Basophils % Not Reportable Metamyelocytes % 2 % Myelocytes % 2 % Neutrophils # Not Reportable Neutrophils # (Manual) 20.30 H (1.3-7.7) k/uL Lymphocytes # Not Reportable Lymphocytes # (Manual) 0.95 L (1.0-4.8) k/uL Monocytes # Not Reportable Monocytes # (Manual) 1.90 H (0-1.0) k/uL Eosinophils # Not Reportable Basophils # Not Reportable Metamyelocytes # (Man) 0.47 H (0) k/uL Myelocytes # (Manual) 0.47 H (0) k/uL Nucleated RBCs 0 (0-0) /100 WBC Manual Slide Review Performed Hypochromasia Marked Macrocytosis Marked A PT 10.5 (9.0-12.0) sec INR 1.0 (<1.2) APTT 34.2 H (22.0-30.0) sec Sample Site ABG pH (7.35-7.45) ABG pCO2 (35-45) mmHg ABG pO2 (83-108) mmHg ABG HCO3 (21-25) mmol/L ABG Total CO2 (19-24) mmol/L ABG O2 Saturation (94-97) % ABG Base Excess mmol/L Moy Test FiO2 % Sodium (137-145) mmol/L Potassium (3.5-5.1) mmol/L Chloride (98-107) mmol/L Carbon Dioxide (22-30) mmol/L Anion Gap mmol/L BUN (9-20) mg/dL Creatinine (0.66-1.25) mg/dL Est GFR (CKD-EPI)AfAm (>60 ml/min/1.73 sqM) Est GFR (CKD-EPI)NonAf (>60 ml/min/1.73 sqM) Glucose (74-99) mg/dL POC Glucose (mg/dL) 543 H (70-110) mg/dL POC Glu Ammonia Still Operator ID Pb [place] Calcium (8.4-10.2) mg/dL Total Bilirubin (0.2-1.3) mg/dL AST (17-59) U/L ALT (4-49) U/L Alkaline Phosphatase (38-126) U/L Troponin I (0.000-0.034) ng/mL Total Protein (6.3-8.2) g/dL Albumin (3.5-5.0) g/dL Urine Color Urine Appearance (Clear) Urine pH (5.0-8.0) Ur Specific Isabel (1.001-1.035) Urine Protein (Negative) Urine Glucose (UA) (Negative) Urine Ketones (Negative) Urine Blood (Negative) Urine Nitrite (Negative) Urine Bilirubin (Negative) Urine Urobilinogen (<2.0) mg/dL Ur Leukocyte Esterase (Negative) Urine RBC (0-5) /hpf Urine WBC (0-5) /hpf Ur Squamous Epith Cells (0-4) /hpf Urine Opiates Screen (NotDetected) Ur Oxycodone Screen (NotDetected) Urine Methadone Screen (NotDetected) Ur Propoxyphene Screen (NotDetected) Ur Barbiturates Screen (NotDetected) U Tricyclic Antidepress (NotDetected) Ur Phencyclidine Scrn (NotDetected) Ur Amphetamines Screen (NotDetected) U Methamphetamines Scrn (NotDetected) U Benzodiazepines Scrn (NotDetected) Urine Cocaine Screen (NotDetected) U Marijuana (THC) Screen (NotDetected) Serum Alcohol mg/dL 02/11/22 02/11/22 02/11/22 Range/Units 07:45 07:45 07:50 WBC (3.8-10.6) k/uL RBC (4.30-5.90) m/uL Hgb (13.0-17.5) gm/dL Hct (39.0-53.0) % MCV (80.0-100.0) fL MCH (25.0-35.0) pg MCHC (31.0-37.0) g/dL RDW (11.5-15.5) % Plt Count (150-450) k/uL MPV Neutrophils % Neutrophils % (Manual) % Band Neuts % (Manual) % Lymphocytes % Lymphocytes % (Manual) % Monocytes % Monocytes % (Manual) % Eosinophils % Basophils % Metamyelocytes % % Myelocytes % % Neutrophils # Neutrophils # (Manual) (1.3-7.7) k/uL Lymphocytes # Lymphocytes # (Manual) (1.0-4.8) k/uL Monocytes # Monocytes # (Manual) (0-1.0) k/uL Eosinophils # Basophils # Metamyelocytes # (Man) (0) k/uL Myelocytes # (Manual) (0) k/uL Nucleated RBCs (0-0) /100 WBC Manual Slide Review Hypochromasia Macrocytosis PT (9.0-12.0) sec INR (<1.2) APTT (22.0-30.0) sec Sample Site right radial ABG pH <6.80 L* (7.35-7.45) ABG pCO2 33 L (35-45) mmHg ABG pO2 >400 H (83-108) mmHg ABG HCO3 4 L* (21-25) mmol/L ABG Total CO2 5 L (19-24) mmol/L ABG O2 Saturation 99.7 H (94-97) % ABG Base Excess -32.1 mmol/L Moy Test Yes FiO2 100 % Sodium 125 L (137-145) mmol/L Potassium 9.7 H* (3.5-5.1) mmol/L Chloride 86 L (98-107) mmol/L Carbon Dioxide 7 L* (22-30) mmol/L Anion Gap 32 mmol/L BUN 82 H (9-20) mg/dL Creatinine 11.06 H* (0.66-1.25) mg/dL Est GFR (CKD-EPI)AfAm 5 (>60 ml/min/1.73 sqM) Est GFR (CKD-EPI)NonAf 5 (>60 ml/min/1.73 sqM) Glucose 1331 H* (74-99) mg/dL POC Glucose (mg/dL) (70-110) mg/dL POC Glu Ammonia Still Operator ID Calcium 8.1 L (8.4-10.2) mg/dL Total Bilirubin 0.5 (0.2-1.3) mg/dL AST 24 (17-59) U/L ALT 19 (4-49) U/L Alkaline Phosphatase 243 H (38-126) U/L Troponin I 0.396 H* (0.000-0.034) ng/mL Total Protein 5.2 L (6.3-8.2) g/dL Albumin 3.3 L (3.5-5.0) g/dL Urine Color Urine Appearance (Clear) Urine pH (5.0-8.0) Ur Specific Isabel (1.001-1.035) Urine Protein (Negative) Urine Glucose (UA) (Negative) Urine Ketones (Negative) Urine Blood (Negative) Urine Nitrite (Negative) Urine Bilirubin (Negative) Urine Urobilinogen (<2.0) mg/dL Ur Leukocyte Esterase (Negative) Urine RBC (0-5) /hpf Urine WBC (0-5) /hpf Ur Squamous Epith Cells (0-4) /hpf Urine Opiates Screen (NotDetected) Ur Oxycodone Screen (NotDetected) Urine Methadone Screen (NotDetected) Ur Propoxyphene Screen (NotDetected) Ur Barbiturates Screen (NotDetected) U Tricyclic Antidepress (NotDetected) Ur Phencyclidine Scrn (NotDetected) Ur Amphetamines Screen (NotDetected) U Methamphetamines Scrn (NotDetected) U Benzodiazepines Scrn (NotDetected) Urine Cocaine Screen (NotDetected) U Marijuana (THC) Screen (NotDetected) Serum Alcohol <10 mg/dL 02/11/22 Range/Units 07:51 WBC (3.8-10.6) k/uL RBC (4.30-5.90) m/uL Hgb (13.0-17.5) gm/dL Hct (39.0-53.0) % MCV (80.0-100.0) fL MCH (25.0-35.0) pg MCHC (31.0-37.0) g/dL RDW (11.5-15.5) % Plt Count (150-450) k/uL MPV Neutrophils % Neutrophils % (Manual) % Band Neuts % (Manual) % Lymphocytes % Lymphocytes % (Manual) % Monocytes % Monocytes % (Manual) % Eosinophils % Basophils % Metamyelocytes % % Myelocytes % % Neutrophils # Neutrophils # (Manual) (1.3-7.7) k/uL Lymphocytes # Lymphocytes # (Manual) (1.0-4.8) k/uL Monocytes # Monocytes # (Manual) (0-1.0) k/uL Eosinophils # Basophils # Metamyelocytes # (Man) (0) k/uL Myelocytes # (Manual) (0) k/uL Nucleated RBCs (0-0) /100 WBC Manual Slide Review Hypochromasia Macrocytosis PT (9.0-12.0) sec INR (<1.2) APTT (22.0-30.0) sec Sample Site ABG pH (7.35-7.45) ABG pCO2 (35-45) mmHg ABG pO2 (83-108) mmHg ABG HCO3 (21-25) mmol/L ABG Total CO2 (19-24) mmol/L ABG O2 Saturation (94-97) % ABG Base Excess mmol/L Moy Test FiO2 % Sodium (137-145) mmol/L Potassium (3.5-5.1) mmol/L Chloride (98-107) mmol/L Carbon Dioxide (22-30) mmol/L Anion Gap mmol/L BUN (9-20) mg/dL Creatinine (0.66-1.25) mg/dL Est GFR (CKD-EPI)AfAm (>60 ml/min/1.73 sqM) Est GFR (CKD-EPI)NonAf (>60 ml/min/1.73 sqM) Glucose (74-99) mg/dL POC Glucose (mg/dL) (70-110) mg/dL POC Glu Ammonia Still Operator ID Calcium (8.4-10.2) mg/dL Total Bilirubin (0.2-1.3) mg/dL AST (17-59) U/L ALT (4-49) U/L Alkaline Phosphatase (38-126) U/L Troponin I (0.000-0.034) ng/mL Total Protein (6.3-8.2) g/dL Albumin (3.5-5.0) g/dL Urine Color Light Yellow Urine Appearance Clear (Clear) Urine pH 6.5 (5.0-8.0) Ur Specific Isabel 1.013 (1.001-1.035) Urine Protein 3+ H (Negative) Urine Glucose (UA) 4+ H (Negative) Urine Ketones 1+ H (Negative) Urine Blood Trace H (Negative) Urine Nitrite Negative (Negative) Urine Bilirubin Negative (Negative) Urine Urobilinogen <2.0 (<2.0) mg/dL Ur Leukocyte Esterase Negative (Negative) Urine RBC 1 (0-5) /hpf Urine WBC 2 (0-5) /hpf Ur Squamous Epith Cells <1 (0-4) /hpf Urine Opiates Screen Not Detected (NotDetected) Ur Oxycodone Screen Not Detected (NotDetected) Urine Methadone Screen Not Detected (NotDetected) Ur Propoxyphene Screen Not Detected (NotDetected) Ur Barbiturates Screen Not Detected (NotDetected) U Tricyclic Antidepress Not Detected (NotDetected) Ur Phencyclidine Scrn Not Detected (NotDetected) Ur Amphetamines Screen Not Detected (NotDetected) U Methamphetamines Scrn Not Detected (NotDetected) U Benzodiazepines Scrn Not Detected (NotDetected) Urine Cocaine Screen Not Detected (NotDetected) U Marijuana (THC) Screen Not Detected (NotDetected) Serum Alcohol mg/dL - Radiology Data Radiology results: report reviewed (CT brain reveals no acute process), image reviewed (Chest x-ray shows high riding ET tube) Critical Care Time Critical Care Time: Yes Total Critical Care Time: 70 Disposition Clinical Impression: Diabetic ketoacidosis, Hyperkalemia, Dialysis patient, noncompliant, Altered mental status, Hypotension, Respiratory failure Disposition: ADMITTED IP TO THIS HOSP Condition: Critical Is patient prescribed a controlled substance at d/c from ED?: No Referrals: Cristi Mary MD [Primary Care Provider] - 1-2 days Time of Disposition: 09:17
[2022-02-11 08:07] LABS: ABG Oxygen Saturation 99.7 % (94-97); ABG PCO2 33 mmHg (35-45); ABG PO2 >400 mmHg (83-108); ABG TCO2 5 mmol/L (19-24); Allen Test Performed? Yes
[2022-02-11 08:07] LABS: Partial Thromboplastin Time 34.2 sec (22.0-30.0); Prothrombin Time 10.5 sec (9.0-12.0)
[2022-02-11] MEDS ORDERED: NOREPINEPHRINE 32 MG in SODIUM CHLORIDE 0.9% 218 ML IV ONE (08:10)
[2022-02-11] MEDS ORDERED: SODIUM CHLORIDE 0.9% 1,000 ML IV STA (08:10)
[2022-02-11 08:16] LABS: ABG PH <6.80 (7.35-7.45)
[2022-02-11 08:16] LABS: HCT 43.2 % (39.0-53.0); HGB 11.1 gm/dL (13.0-17.5); Hypochromasia Marked; MCH 28.4 pg (25.0-35.0); MCHC 25.6 g/dL (31.0-37.0); Macrocytosis Marked; Mean Platelet Volume 10.2; RDW 12.9 % (11.5-15.5); WBC 23.7 k/uL (3.8-10.6)
[2022-02-11 08:17] LABS: MCV 110.7 fL (80.0-100.0); Platelet Count 446 k/uL (150-450)
[2022-02-11 08:17] LABS: ABG Base Excess -32.1 mmol/L; ABG HCO3 4 mmol/L (21-25)
[2022-02-11 08:23] LABS: Appearance,Urine Clear (Clear); Bilirubin,Urine Negative (Negative); Blood,Urine Trace (Negative); Color,Urine Light Yellow; Glucose,Urine (UA) 4+ (Negative); Ketones,Urine 1+ (Negative); Leukocyte Esterase,Urine Negative (Negative); Nitrite,Urine Negative (Negative); PH, Urine 6.5 (5.0-8.0); Protein,Urine 3+ (Negative); RBC,Urine 1 /hpf (0-5); Specific Gravity,Urine 1.013 (1.001-1.035); Squamous Epithelial Cell,Urine <1 /hpf (0-4); Urobilinogen,Urine <2.0 mg/dL (<2.0); WBC,Urine 2 /hpf (0-5)
[2022-02-11 08:31] LABS: Potassium 9.7 mmol/L (3.5-5.1)
[2022-02-11 08:32] LABS: Carbon Dioxide 7 mmol/L (22-30); Glucose 1331 mg/dL (74-99)
[2022-02-11] MEDS ORDERED: CALCIUM GLUCONATE IN NACL 1 GM in SALINE 1 100ML.BAG IVPB ONE (08:32)
[2022-02-11] MEDS ORDERED: SODIUM POLYSTYRENE SULFONATE 15 GM/60 ML BOTTLE PO ONE (08:32)
[2022-02-11] MEDS ORDERED: INSULIN REGULAR 100 UNIT/ML VIAL (IV) IV ONE (08:32)
[2022-02-11] MEDS ORDERED: SODIUM BICARB 8.4% 50 ML SYR (1 MEQ/ML) IV ONE (08:32)
[2022-02-11] MEDS ORDERED: ALBUTEROL NEB (CONC) 2.5 MG/0.5 ML INHALATION ONE (08:32)
--- NOTE | 2022-02-11 08:32 | XR ---
EXAMINATION TYPE: XR chest 1V portable DATE OF EXAM: 02/11/2022 HISTORY: Shortness of breath. COMPARISON: 02/04/2022 TECHNIQUE: Single view of the chest is submitted. FINDINGS: Endotracheal tube and NG tube are in place. The tip of the endotracheal tube is approximately 12.7 cm from the elle and should be advanced. The NG tube is seen coursing into the stomach. Large bore ri ght sided IJ central venous line is in place. Mild pulmonary venous congestion. There is no evidence for focal infiltrate. The heart is stable. Hilar and mediastinal structures are within normal limits. Degenerative changes are seen of the dorsal spine. IMPRESSION: 1. Tubes and catheters as noted. 2. Pulmonary venous congestion without overt failure
[2022-02-11 08:35] LABS: Amphetamine Screen,Urine Not Detected (NotDetected); Barbiturate Screen,Urine Not Detected (NotDetected); Benzodiazepines Screen,Urine Not Detected (NotDetected); Cocaine Screen,Urine Not Detected (NotDetected); Methadone Screen, Urine Not Detected (NotDetected); Opiate Screen,Urine Not Detected (NotDetected); Oxycodone Screen, Urine Not Detected (NotDetected); Phencyclidine Screen,Urine Not Detected (NotDetected); Tricyclic Antidepressant,Urine Not Detected (NotDetected); Urn Cannabinoid Scrn Not Detected (NotDetected)
[2022-02-11] MEDS ORDERED: SODIUM POLYSTYRENE SULFONATE 30 GM/120 ML BOTTLE RECTAL STA (08:44)
[2022-02-11 08:51] LABS: Band Neutrophils % 1 %; Lymphocytes # (M) 0.95 k/uL (1.0-4.8); Metamyelocytes # (M) 0.47 k/uL (0); Metamyelocytes % 2 %; Myelocytes # (M) 0.47 k/uL (0); Myelocytes % 2 %; Neutrophils % (M) 85 %; Nucleated Red Blood Cells 0 /100 WBC (0-0); Total Cells Counted 200
[2022-02-11] MEDS ORDERED: DEXTROSE 5% IN WATER 1,000 ML with SODIUM BICARB (1 MEQ/ML) 150 ML IV ONE (09:00)
--- NOTE | 2022-02-11 09:13 | CT ---
EXAMINATION TYPE: CT brain wo con DATE OF EXAM: 02/11/2022 COMPARISON: 01/30/22 HISTORY: AMS, found unresponsive. Pt is vented. CT DLP: 1127.[address] of the brain was performed. The ventricles, basal cisterns and sulci overlying the cerebral convexities demonstrate mild enlargem ent. There is no evidence for intracranial hemorrhage or sulcal effacement. There is decreased attenuation about the periventricular white matter and deep white matter of both c erebral hemispheres, compatible with chronic small vessel ischemia. Differential diagnosis does inclu de demyelination. No mass effects are seen.No midline shift. Osseous calvarium is intact. If symptoms persist consider MRI. IMPRESSION: 1. Age related atrophic and chronic small vessel ischemic change without acute intracranial process s een at this time.
[2022-02-11 09:18] LABS: Glucose,Whole Blood >600 mg/dL (70-110)
[2022-02-11] MEDS: INSULIN REGULAR 100 UNIT in SODIUM CHLORIDE 0.9% 100 ML IV SCH ×2 (09:23→19:51)
--- NOTE | 2022-02-11 10:14 | P.NPCON ---
History of Present Illness - Reason for Consult end stage renal disease - History of Present Illness Reason for consultation: End-stage renal disease and electrolyte imbalance History of present illness: Patient is a 51-year-old male seen in consultation for end-stage renal disease. Patient was seen and examined in the emergency room. Patient has history of end-stage renal disease and is maintained on hemodialysis on Tuesday schedule via permacath. Patient was found unresponsive at home. On presentation he was noted to be in DKA for blood sugar of 1331. He was also extremely acidotic with bicarb level of 7, pH of less than 6.8. Potassium was high at 9.7 with EKG changes. Patient did receive 2 L of normal saline bolus and is currently receiving normal saline as well as bicarbonate drip. He is also on insulin drip. Hyperkalemia was medically treated with IV calcium, IV insulin and also 3 A of sodium bicarb IV push. Patient is currently intubated. Patient has history of obstructive uropathy and performs self catheterizations at home. He is a brittle diabetic. Blood pressure was low but did improve with IV fluids. Vital signs are unstable as patient is hypotensive and tachycardic. General: Resting in bed. HEENT: Intubated. LUNGS: Breath sounds decreased. HEART: Tachycardic. ABDOMEN: Soft, no distention. EXTREMITITES: 1+ edema. Past Medical History Past Medical History: Diabetes Mellitus, GERD/Reflux, Renal Disease Additional Past Medical History / Comment(s): IDDM type II, diabetic neuropathy bilateral feet, DKA, ESRD on HD, past perianal abscess/fistula with surgery, BPH/urinary retention with surgery, UTI. self cath four times a day, dialysis //tue History of Any Multi-Drug Resistant Organisms: None Reported Past Surgical History: No Surgical Hx Reported Additional Past Surgical History / Comment(s): 08/2014 cystoscopy with TURP, rectal exam/I&D/fistulotomy. I&D back Past Anesthesia/Blood Transfusion Reactions: No Reported Reaction Past Psychological History: No Psychological Hx Reported Smoking Status: Current every day smoker Past Alcohol Use History: None Reported Past Drug Use History: None Reported - Past Family History Mother Family Medical History: Diabetes Mellitus Additional Family Medical History / Comment(s): mother is Father Family Medical History: No Reported History Additional Family Medical History / Comment(s): Father is healthy. Medications and Allergies Home Medications Medication Instructions Recorded Confirmed Type Insulin Aspart [NovoLOG Flexpen] See Protocol SQ AC-TID 07/09/19 02/03/22 History Insulin Degludec [Tresiba 70 units SQ HS 03/18/21 02/03/22 History Flextouch U-200 Pen] lisinopriL [Zestril] 40 mg PO HS 03/18/21 02/03/22 History Lansoprazole 30 mg PO DAILY 04/07/21 02/03/22 History Ondansetron [Zofran] 4 mg PO Q6H PRN 11/28/21 02/03/22 History Hyoscyamine Sulfate [Levbid] 0.375 mg PO Q12HR PRN 01/26/22 02/03/22 History Prochlorperazine [Compazine] 10 mg PO TID 01/26/22 02/03/22 History hydrALAZINE HCL [Apresoline] 100 mg PO TID 01/26/22 02/03/22 History Ergocalciferol [Vitamin D2 (1250 1,250 mcg PO WEEKLY 02/01/22 02/03/22 History Mcg = 28393 Iu)] Sertraline HCl [Zoloft] 25 mg PO DAILY 02/01/22 02/03/22 History carvediloL [Coreg] 6.25 mg PO BID 02/01/22 02/03/22 History Allergies Allergy/AdvReac Type Severity Reaction Status Date / Time No Known Allergies Allergy Verified 02/03/22 12:46 Physical Exam Vitals: Vital Signs Pulse Resp BP Pulse Ox FiO2 02/11/22 09:08 161 H 18 104/49 100 02/11/22 08:50 160 H 02/11/22 08:15 160 H 02/11/22 08:11 50 02/11/22 07:52 100 02/11/22 07:35 100 02/11/22 07:25 161 H 25 H 93/45 95 02/11/22 07:21 156 H 24 111/44 100 Intake and Output 02/10/22 02/11/22 02/11/22 22:59 06:59 14:59 Other: Weight 90.718 kg Results - Lab Results Most recent lab results ABG pH <6.80 (7.35-7.45) L* 02/11/22 07:50 ABG pCO2 33 mmHg (35-45) L 02/11/22 07:50 ABG pO2 >400 mmHg (83-108) H 02/11/22 07:50 ABG HCO3 4 mmol/L (21-25) L* 02/11/22 07:50 ABG O2 Saturation 99.7 % (94-97) H 02/11/22 07:50 Calcium 8.1 mg/dL (8.4-10.2) L 02/11/22 07:45 02/11/22 07:45 02/11/22 07:45 Assessment and Plan Plan: Assessment: 1. End-stage renal disease maintained on hemodialysis on Tuesday schedule via permacath. 2. DKA maintained on insulin drip and IV fluids. 3. Hyperkalemia secondary to chronic kidney disease, severe hyperglycemia and acidosis. Medically treated with IV calcium, IV insulin, and sodium bicarb in the ER. 4. Metabolic acidosis secondary to DKA. 5. Hyponatremia secondary to hypertonicity from hyperglycemia. 6. Obstructive uropathy. Patient performs self catheterizations at home. Plan: Maintain IV fluids with normal saline and bicarb drip. Maintain insulin drip. I have notified the dialysis nurse for stat treatment of hemodialysis. Repeat BMP 2 hours after dialysis. Thank you for the consultation. I will continue to follow the patient with you during his hospital stay.
[2022-02-11] MEDS: SODIUM CHLORIDE 0.9% 1,000 ML IV SCH ×3 (10:17→23:57)
[2022-02-11 10:29] LABS: Glucose,Whole Blood >600 mg/dL (70-110)
[2022-02-11] MEDS ORDERED: LORazepam 2 MG/ML INJ IV PRN ×2 (10:37)
--- NOTE | 2022-02-11 11:52 | P.CRDCN ---
History of Present Illness Consult date: 02/11/22 History of present illness: This 51-year-old gentleman with a known history of hypertension diabetes and chronic renal failure on hemodialysis was brought in for altered mental status. Patient was found unresponsive at home. His aunt came to pick him up to take him to dialysis and found him on the floor. It is unknown how long he was down. We have been consult that for cardiac evaluation. Patient's troponin was 0.396, his potassium was 9.7, initial glucose was 1331, BUN 82, creatinine 11. Patient's EKG shows sinus rhythm with short ND interval, right bundle-branch block, and ST depression. Patient is intubated at this time, lungs are clear, he was intubated to protect his airway. He is currently getting dialyzed. Patient is on Levophed, blood pressure 104/49, he was tachycardic 160, now he has heart rate is 79. Will obtain a 2-D echocardiogram To evaluate LV function. Review of Systems REVIEW OF SYSTEMS At the time of my exam: Patient is intubated and sedated CONSTITUTIONAL: Denies fever or chills. EYES: Negative for vision changes ENT: Negative for hearing loss CARDIOVASCULAR: Denies chest pain, shortness of breath, diaphoresis, orthopnea, PND or palpitations. VASCULAR: Denies edema RESPIRATORY: Denies cough. GASTROINTESTINAL: Denies abdominal pain, diarrhea, constipation, nausea or vomiting. MUSCULOSKELETAL: Denies myalgias. NEUROLOGIC: Denies numbness, tingling, headache or weakness. ENDOCRINE: Denies fatigue, weight change, polydipsia or polyurina. GENITOURINARY: Denies burning, hematuria or urgency with micturation. HEMATOLOGIC: Denies history of anemia or bleeding. DERMATOLOGY: Denies rash or skin sores PSYCH: Negative for depression or hallucinations. Past Medical History Past Medical History: Diabetes Mellitus, GERD/Reflux, Renal Disease Additional Past Medical History / Comment(s): IDDM type II, diabetic neuropathy bilateral feet, DKA, ESRD on HD, past perianal abscess/fistula with surgery, BPH/urinary retention with surgery, UTI. self cath four times a day, dialysis Tues/thur/sat History of Any Multi-Drug Resistant Organisms: None Reported Past Surgical History: No Surgical Hx Reported Additional Past Surgical History / Comment(s): 08/2014 cystoscopy with TURP, rectal exam/I&D/fistulotomy. I&D back Past Anesthesia/Blood Transfusion Reactions: No Reported Reaction Past Psychological History: No Psychological Hx Reported Smoking Status: Current every day smoker Past Alcohol Use History: None Reported Past Drug Use History: None Reported - Past Family History Mother Family Medical History: Diabetes Mellitus Additional Family Medical History / Comment(s): mother is Father Family Medical History: No Reported History Additional Family Medical History / Comment(s): Father is healthy. Medications and Allergies Home Medications Medication Instructions Recorded Confirmed Type Insulin Aspart [NovoLOG Flexpen] See Protocol SQ AC-TID 07/09/19 02/11/22 History Insulin Degludec [Tresiba 70 units SQ HS 03/18/21 02/11/22 History Flextouch U-200 Pen] lisinopriL [Zestril] 40 mg PO HS 03/18/21 02/11/22 History Lansoprazole 30 mg PO DAILY 04/07/21 02/11/22 History Ondansetron [Zofran] 4 mg PO Q6H PRN 11/28/21 02/11/22 History Hyoscyamine Sulfate [Levbid] 0.375 mg PO Q12HR PRN 01/26/22 02/11/22 History Prochlorperazine [Compazine] 10 mg PO TID 01/26/22 02/11/22 History hydrALAZINE HCL [Apresoline] 100 mg PO TID 01/26/22 02/11/22 History Ergocalciferol [Vitamin D2 (1250 1,250 mcg PO Q7D 02/01/22 02/11/22 History Mcg = 00663 Iu)] Sertraline HCl [Zoloft] 25 mg PO DAILY 02/01/22 02/11/22 History carvediloL [Coreg] 6.25 mg PO BID 02/01/22 02/11/22 History Allergies Allergy/AdvReac Type Severity Reaction Status Date / Time No Known Allergies Allergy Verified 02/11/22 10:22 Physical Exam Vitals: Vital Signs Pulse Resp BP Pulse Ox FiO2 02/11/22 11:21 79 26 H 121/67 100 02/11/22 11:10 81 23 93/53 100 02/11/22 10:59 146 H 22 78/48 100 02/11/22 10:48 156 H 16 100/57 100 02/11/22 10:22 155 H 18 98/58 99 02/11/22 09:08 161 H 18 104/49 100 02/11/22 08:50 160 H 02/11/22 08:15 160 H 02/11/22 08:11 50 02/11/22 07:52 100 02/11/22 07:35 100 02/11/22 07:25 161 H 25 H 93/45 95 02/11/22 07:21 156 H 24 111/44 100 Intake and Output 02/10/22 02/11/22 02/11/22 22:59 06:59 14:59 Intake Total 5.939 Balance 5.939 Intake: Intake, IV Titration 5.939 Amount Norepinephrine 32 mg In 1.176 Sodium Chloride 0.9% 218 ml @ 0.03 MCG/KG/MIN 1. 276 mls/hr IV .Q24H ONE Rx#:[id number] propofoL 1,000 mg In 4.763 Empty Bag 1 bag @ 15 MCG/ KG/MIN 8.165 mls/hr IV . [id number] [facility] Rx#:[id number] Other: Weight 90.718 kg General: Patient is resting comfortably in no acute distress Skin: Skin is warm and dry and no rashes or lesions are noted. Eye: Pupils are equal, round and reactive to light, extra-ocular movements are intact; there is normal conjunctiva bilaterally. Ears, nose, mouth and throat: There are moist mucous membranes and no oral lesions. Neck: The neck is supple, there is no tenderness or JVD. Cardiovascular: There is regular rate and rhythm. No murmur, rub or gallop is appreciated. Respiratory: Lungs are clear to auscultation, respirations are non-labored, breath sounds are equal. Gastrointestinal: Soft, non-distended, non-tender abdomen without masses or organomegaly noted. There is no rebound or guarding present. Bowel sounds are unremarkable. Back: There is no tenderness to palpation in the midline. There is no obvious deformity. Musculoskeletal: Normal ROM, no tenderness, There is no pedal edema. There is no calf tenderness or swelling. Extremities: Mild bilateral pitting edema Vascular: Femoral pulse is normal. Posterior tibial pulses are normal .Dorsalis pedis is palpable. Neurological: CN II-XII intact. There are no obvious motor or sensory deficits. Speech is normal. Psychiatric: He is mechanically ventilated and sedated Results 02/11/22 07:45 02/11/22 07:45 Cardiac Enzymes 02/11/22 02/11/22 Range/Units 07:45 07:45 AST 24 (17-59) U/L Troponin I 0.396 H* (0.000-0.034) ng/mL Coagulation 02/11/22 Range/Units 07:45 PT 10.5 (9.0-12.0) sec APTT 34.2 H (22.0-30.0) sec CBC 02/11/22 Range/Units 07:45 WBC 23.7 H (3.8-10.6) k/uL RBC 3.90 L (4.30-5.90) m/uL Hgb 11.1 L (13.0-17.5) gm/dL Hct 43.2 (39.0-53.0) % Plt Count 446 D (150-450) k/uL Comprehensive Metabolic Panel 02/11/22 Range/Units 07:45 Sodium 125 L (137-145) mmol/L Potassium 9.7 H* (3.5-5.1) mmol/L Chloride 86 L (98-107) mmol/L Carbon Dioxide 7 L* (22-30) mmol/L BUN 82 H (9-20) mg/dL Creatinine 11.06 H* (0.66-1.25) mg/dL Glucose 1331 H* (74-99) mg/dL Calcium 8.1 L (8.4-10.2) mg/dL AST 24 (17-59) U/L ALT 19 (4-49) U/L Alkaline Phosphatase 243 H (38-126) U/L Total Protein 5.2 L (6.3-8.2) g/dL Albumin 3.3 L (3.5-5.0) g/dL Current Medications Generic Name Dose Route Start Last Admin Trade Name Freq PRN Reason Stop Dose Admin Albuterol/Ipratropium 3 ml 02/11/22 10:37 Ipratropium-Albuterol 3 Ml Neb INHALATION RT-Q2H PRN Shortness Of Breath Or Wheezing Norepinephrine Bitartrate 32 250 mls @ 1.276 mls/hr 02/11/22 08:10 02/11/22 11:21 mg/ Sodium Chloride IV 02/12/22 08:09 0.15 mcg/kg/min .Q24H ONE 6.379 mls/hr Titration Protocol 0.03 MCG/KG/MIN Sodium Bicarbonate 150 ml/ 1,150 mls @ 50 mls/hr 02/11/22 09:00 02/11/22 09:28 Dextrose/Water IV 02/12/22 07:59 50 mls/hr .Q23H ONE Administration Insulin Human Regular 100 unit 101 mls @ 9.163 mls/hr 02/11/22 09:00 02/11/22 09:23 / Sodium Chloride IV 0.1 units/kg/hr .Q11H2M SHIRLEY 9.163 mls/hr Administration Protocol 0.1 UNITS/KG/HR Sodium Chloride 1,000 mls @ 150 mls/hr 02/11/22 09:00 02/11/22 10:17 Saline 0.9% IV 150 mls/hr .Q6H40M SHIRLEY Administration Sodium Chloride 1,000 mls @ 500 mls/hr 02/11/22 08:48 02/11/22 09:04 Saline 0.9% IV 500 mls/hr .Q2H ONE Administration Propofol 1,000 mg/ IV Solution 100 mls @ 8.165 mls/hr 02/11/22 10:45 02/11/22 11:21 IV 50 mcg/kg/min .[id number] SHIRLEY 27.215 mls/hr Titration Protocol 15 MCG/KG/MIN Lorazepam 1 mg 02/11/22 10:37 02/11/22 11:09 Lorazepam 2 Mg/Ml Inj IV 1 mg Q1HR PRN Administration Mild Agitation Lorazepam 2 mg 02/11/22 10:37 Lorazepam 2 Mg/Ml Inj IV Q1HR PRN Severe Agitation Intake and Output 02/10/22 02/11/22 02/11/22 22:59 06:59 14:59 Intake Total 5.939 Balance 5.939 Intake: Intake, IV Titration 5.939 Amount Norepinephrine 32 mg In 1.176 Sodium Chloride 0.9% 218 ml @ 0.03 MCG/KG/MIN 1. 276 mls/hr IV .Q24H [facility] Rx#:[id number] propofoL 1,000 mg In 4.763 Empty Bag 1 bag @ 15 MCG/ KG/MIN 8.165 mls/hr IV . [id number] [facility] Rx#:[id number] Other: Weight 90.718 kg Patient Weight 02/12/22 06:59 Weight 90.718 kg 02/11/22 07:45 02/11/22 07:45 Assessment and Plan Assessment: Syncope related to hypoglycemia and metabolic acidosis Elevated troponin related to acute on chronic renal failure End-stage renal disease on hemodialysis DKA maintain on insulin drip and IV fluids Hyperkalemia secondary to acute on chronic kidney disease Metabolic acidosis secondary to DKA Plan: Continue with all current cardiac medications Will obtain an 2-D echocardiogram Continue telemetry monitoring Continue with accurate I's and O's Further recommendations based on clinical course The above impression and plan of care have been discussed and directed by the signing physician. Lata Shea, nurse practitioner, acting as scribe for signing physician.
[2022-02-11 11:57] LABS: Glucose,Whole Blood >600 mg/dL (70-110)
[2022-02-11 13:00] LABS: Glucose,Whole Blood 567 mg/dL (70-110)
--- NOTE | 2022-02-11 13:29 | P.CNPUL ---
History of Present Illness Consult date: 02/11/22 Requesting physician: Cristi Mary Reason for consult: other (Acute hypoxic respiratory failure) Chief complaint: Altered mental status, unresponsiveness History of present illness: This is a 51-year-old white male with history of end-stage renal disease, on hemodialysis, type 2 diabetes, hypertension, patient is normally on hemodialysis. He was brought in this morning with altered mental status. Patient was found unresponsive on the floor at home. Unknown how long the patient has been down. Patient was brought into the ER, and apparently required immediate intubation and mechanical ventilation. It is not clear whether the patient has been compliant with his hemodialysis, nonetheless he was found to have an elevated potassium of 9.7 elevated blood sugar of 1331 and elevated creatinine of 11 with BUN of 82. I saw the patient in the ER, and the patient was receiving hemodialysis. He is on assist control rate of 16, volume 500 FiO2 50% and PEEP of 5 and on propofol at 50 mcg/kg/m is also on insulin at 9.16 units per hour refeeding bicarb drip at 50 mL per hour. And he is also on norepinephrine at 0.15 mcg/kg/m. Patient was seen by nephrology earlier, and recommended immediate hemodialysis. Patient was hypotensive upon arrival and a central line was placed by the ER physician in the left groin, he already has a dialysis catheter in place and being used for hemodialysis. ABG immediately post intubation showed a pO2 of 400 pCO2 33 pH of 6.80 patient was found to have a bnormal labs as noted above. Drug screen was negative CT of the brain showed no evidence of acute intracranial process mild pulmonary vascular congestion otherwise unremarkable Review of Systems ROS unobtainable: due to endotracheal tube Past Medical History Past Medical History: Diabetes Mellitus, GERD/Reflux, Renal Disease Additional Past Medical History / Comment(s): IDDM type II, diabetic neuropathy bilateral feet, DKA, ESRD on HD, past perianal abscess/fistula with surgery, BPH/urinary retention with surgery, UTI. self cath four times a day, dialysis Tues/thur/sat History of Any Multi-Drug Resistant Organisms: None Reported Past Surgical History: No Surgical Hx Reported Additional Past Surgical History / Comment(s): 08/2014 cystoscopy with TURP, rectal exam/I&D/fistulotomy. I&D back Past Anesthesia/Blood Transfusion Reactions: No Reported Reaction Past Psychological History: No Psychological Hx Reported Smoking Status: Current every day smoker Past Alcohol Use History: None Reported Past Drug Use History: None Reported - Past Family History Mother Family Medical History: Diabetes Mellitus Additional Family Medical History / Comment(s): mother is Father Family Medical History: No Reported History Additional Family Medical History / Comment(s): Father is healthy. Medications and Allergies Home Medications Medication Instructions Recorded Confirmed Type Insulin Aspart [NovoLOG Flexpen] See Protocol SQ AC-TID 07/09/19 02/11/22 History Insulin Degludec [Tresiba 70 units SQ HS 03/18/21 02/11/22 History Flextouch U-200 Pen] lisinopriL [Zestril] 40 mg PO HS 03/18/21 02/11/22 History Lansoprazole 30 mg PO DAILY 04/07/21 02/11/22 History Ondansetron [Zofran] 4 mg PO Q6H PRN 11/28/21 02/11/22 History Hyoscyamine Sulfate [Levbid] 0.375 mg PO Q12HR PRN 01/26/22 02/11/22 History Prochlorperazine [Compazine] 10 mg PO TID 01/26/22 02/11/22 History hydrALAZINE HCL [Apresoline] 100 mg PO TID 01/26/22 02/11/22 History Ergocalciferol [Vitamin D2 (1250 1,250 mcg PO Q7D 02/01/22 02/11/22 History Mcg = 38870 Iu)] Sertraline HCl [Zoloft] 25 mg PO DAILY 02/01/22 02/11/22 History carvediloL [Coreg] 6.25 mg PO BID 02/01/22 02/11/22 History Allergies Allergy/AdvReac Type Severity Reaction Status Date / Time No Known Allergies Allergy Verified 02/11/22 10:22 Physical Exam Vitals: Vital Signs Temp Pulse Resp BP Pulse Ox FiO2 02/11/22 13:03 96 16 90/59 100 02/11/22 12:08 91.7 F L 02/11/22 12:07 50 02/11/22 11:21 79 26 H 121/67 100 02/11/22 11:10 81 23 93/53 100 02/11/22 10:59 146 H 22 78/48 100 02/11/22 10:48 156 H 16 100/57 100 02/11/22 10:22 155 H 18 98/58 99 02/11/22 09:08 161 H 18 104/49 100 02/11/22 08:50 160 H 02/11/22 08:15 160 H 02/11/22 08:11 50 02/11/22 07:52 100 02/11/22 07:35 100 02/11/22 07:25 161 H 25 H 93/45 95 02/11/22 07:21 156 H 24 111/44 100 Intake and Output 02/10/22 02/11/22 02/11/22 22:59 06:59 14:59 Intake Total 17.315 Balance 17.315 Intake: Intake, IV Titration 17.315 Amount Norepinephrine 32 mg In 12.552 Sodium Chloride 0.9% 218 ml @ 0.03 MCG/KG/MIN 1. 276 mls/hr IV .Q24H [facility] Rx#:[id number] propofoL 1,000 mg In 4.763 Empty Bag 1 bag @ 15 MCG/ KG/MIN 8.165 mls/hr IV . [id number] [facility] Rx#:[id number] Other: Weight 90.718 kg Physical Exam: Revealed a 51-year-old white male intubated and mechanically ventilated, sedated, patient was seen in the ER trauma 2. Head: Atraumatic, normocephalic. HEENT:[Neck is supple.] [No neck masses.] [No thyromegaly.] [No JVD.] PERRLA, EOMI, anicteric, no neck masses, slight JVD noted Chest: [Symmetrical chest expansion fine crackles at the bases no rhonchi and no wheezes Cardiac Exam: [Normal S1 and S2, no S3 gallop, 2/6 systolic murmur thought the precordium. Abdomen: [Soft, nontender, no megaly, no rebound, no guarding, normal bowel sounds.] Extremities: [No clubbing, no edema, no cyanosis.] Neurological Exam: Cannot assess, patient is intubated and sedated on propofol. Psychiatric: Could not assess. Skin: No rashes. Results - Laboratory Findings CBC and BMP: 02/11/22 07:45 02/11/22 07:45 ABG ABG pH <6.80 (7.35-7.45) L* 02/11/22 07:50 ABG pCO2 33 mmHg (35-45) L 02/11/22 07:50 ABG pO2 >400 mmHg (83-108) H 02/11/22 07:50 ABG O2 Saturation 99.7 % (94-97) H 02/11/22 07:50 PT/INR, D-dimer PT 10.5 sec (9.0-12.0) 02/11/22 07:45 INR 1.0 (<1.2) 02/11/22 07:45 Abnormal lab findings: Abnormal Labs 02/11/22 02/11/22 02/11/22 07:28 07:45 07:45 WBC 23.7 H RBC 3.90 L Hgb 11.1 L MCV 110.7 H D MCHC 25.6 L Neutrophils # (Manual) 20.30 H Lymphocytes # (Manual) 0.95 L Monocytes # (Manual) 1.90 H Metamyelocytes # (Man) 0.47 H Myelocytes # (Manual) 0.47 H Macrocytosis Marked A APTT 34.2 H ABG pH ABG pCO2 ABG pO2 ABG HCO3 ABG Total CO2 ABG O2 Saturation Sodium Potassium Chloride Carbon Dioxide BUN Creatinine Glucose POC Glucose (mg/dL) 543 H Calcium Alkaline Phosphatase Troponin I Total Protein Albumin Urine Protein Urine Glucose (UA) Urine Ketones Urine Blood 02/11/22 02/11/22 02/11/22 07:45 07:45 07:50 WBC RBC Hgb MCV MCHC Neutrophils # (Manual) Lymphocytes # (Manual) Monocytes # (Manual) Metamyelocytes # (Man) Myelocytes # (Manual) Macrocytosis APTT ABG pH <6.80 L* ABG pCO2 33 L ABG pO2 >400 H ABG HCO3 4 L* ABG Total CO2 5 L ABG O2 Saturation 99.7 H Sodium 125 L Potassium 9.7 H* Chloride 86 L Carbon Dioxide 7 L* BUN 82 H Creatinine 11.06 H* Glucose 1331 H* POC Glucose (mg/dL) Calcium 8.1 L Alkaline Phosphatase 243 H Troponin I 0.396 H* Total Protein 5.2 L Albumin 3.3 L Urine Protein Urine Glucose (UA) Urine Ketones Urine Blood 02/11/22 02/11/22 02/11/22 07:51 09:16 10:27 WBC RBC Hgb MCV MCHC Neutrophils # (Manual) Lymphocytes # (Manual) Monocytes # (Manual) Metamyelocytes # (Man) Myelocytes # (Manual) Macrocytosis APTT ABG pH ABG pCO2 ABG pO2 ABG HCO3 ABG Total CO2 ABG O2 Saturation Sodium Potassium Chloride Carbon Dioxide BUN Creatinine Glucose POC Glucose (mg/dL) >600 H >600 H Calcium Alkaline Phosphatase Troponin I Total Protein Albumin Urine Protein 3+ H Urine Glucose (UA) 4+ H Urine Ketones 1+ H Urine Blood Trace H 02/11/22 02/11/22 11:54 12:58 WBC RBC Hgb MCV MCHC Neutrophils # (Manual) Lymphocytes # (Manual) Monocytes # (Manual) Metamyelocytes # (Man) Myelocytes # (Manual) Macrocytosis APTT ABG pH ABG pCO2 ABG pO2 ABG HCO3 ABG Total CO2 ABG O2 Saturation Sodium Potassium Chloride Carbon Dioxide BUN Creatinine Glucose POC Glucose (mg/dL) >600 H 567 H Calcium Alkaline Phosphatase Troponin I Total Protein Albumin Urine Protein Urine Glucose (UA) Urine Ketones Urine Blood - Diagnostic Findings Chest x-ray: image reviewed (As noted in HPI.) Assessment and Plan Assessment: Impression: Acute hypoxic respiratory failure secondary to acute DKA and severe anion gap metabolic acidosis Acute hyperkalemia, being treated per nephrology and the patient is receiving hemodialysis Pseudohyponatremia secondary to hyperglycemia Altered mental status/metabolic encephalopathy secondary to DKA Severe dehydration. End-stage renal disease, on hemodialysis Benign essential hypertension History of benign prostatic hypertrophy and obstructive uropathy History of perianal fistula requiring drainage History of melanoma. Recommendation: continue ventilatory support continue hemodialysis close monitoring of his electrolytes and renal profile and blood sugar Continue insulin drip as per DKA protocol Continue bicarb drip for now. Monitor electrolytes every 4 hours Monitor anion gap acidosis Transferred to ICU after hemodialysis in the ER GI and DVT prophylaxis Will continue to follow. Prognosis is guarded. Patient is critically ill. Time with Patient: Greater than 30
[2022-02-11 14:18] LABS: Glucose,Whole Blood >600 mg/dL (70-110)
[2022-02-11 15:16] LABS: Glucose,Whole Blood 582 mg/dL (70-110)
[2022-02-11 16:18] LABS: Glucose,Whole Blood 537 mg/dL (70-110)
[2022-02-11 17:43] LABS: Calcium 7.3 mg/dL (8.4-10.2); Potassium 4.3 mmol/L (3.5-5.1)
[2022-02-11 18:05] LABS: Glucose,Whole Blood 468 mg/dL (70-110)
[2022-02-11 19:07] LABS: Glucose,Whole Blood 453 mg/dL (70-110)
[2022-02-11 20:22] LABS: Glucose,Whole Blood 410 mg/dL (70-110)
[2022-02-11 21:11] LABS: Glucose,Whole Blood 369 mg/dL (70-110)
[2022-02-11 22:06] LABS: Glucose,Whole Blood 327 mg/dL (70-110)
[2022-02-11 23:16] LABS: Glucose,Whole Blood 286 mg/dL (70-110)
[2022-02-11] MEDS: D5-0.45% NACL WITH KCL 20MEQ/L 1,000 ML IV SCH (23:48)
[2022-02-12 00:05] LABS: Glucose,Whole Blood 266 mg/dL (70-110)
[2022-02-12 01:21] LABS: Glucose,Whole Blood 227 mg/dL (70-110)
[2022-02-12 01:31] LABS: Phosphorus 4.4 mg/dL (2.5-4.5)
[2022-02-12 01:39] LABS: Potassium 4.7 mmol/L (3.5-5.1)
[2022-02-12 02:05] LABS: Glucose,Whole Blood 209 mg/dL (70-110)
[2022-02-12 02:58] LABS: Glucose,Whole Blood 182 mg/dL (70-110)
[2022-02-12 04:02] LABS: Glucose,Whole Blood 159 mg/dL (70-110)
[2022-02-12 04:42] LABS: HCT 26.6 % (39.0-53.0); MCH 29.3 pg (25.0-35.0); MCHC 34.8 g/dL (31.0-37.0); Mean Platelet Volume 7.7; Platelet Count 236 k/uL (150-450); RBC 3.17 m/uL (4.30-5.90); RDW 12.9 % (11.5-15.5); WBC 15.6 k/uL (3.8-10.6)
[2022-02-12 05:10] LABS: Calcium 7.2 mg/dL (8.4-10.2); Magnesium 1.6 mg/dL (1.6-2.3); Phosphorus 4.2 mg/dL (2.5-4.5); Potassium 3.5 mmol/L (3.5-5.1)
[2022-02-12 05:11] LABS: HGB 9.3 gm/dL (13.0-17.5); MCV 84.2 fL (80.0-100.0)
[2022-02-12 05:18] LABS: Glucose,Whole Blood 113 mg/dL (70-110)
[2022-02-12 05:53] LABS: ABG HCO3 27 mmol/L (21-25); ABG PCO2 42 mmHg (35-45); ABG PH 7.43 (7.35-7.45); ABG PO2 203 mmHg (83-108); ABG TCO2 29 mmol/L (19-24); Allen Test Performed? Yes
[2022-02-12 06:00] LABS: Glucose,Whole Blood 88 mg/dL (70-110)
[2022-02-12 06:38] LABS: Glucose,Whole Blood 94 mg/dL (70-110)
[2022-02-12] MEDS ORDERED: Potassium Replacement Protocol 1 EACH MISC MISCELLANE PRN (06:39)
[2022-02-12] MEDS ORDERED: DEXTROSE 50% SYRINGE 50 ML IVP PRN ×2 (06:52)
[2022-02-12] MEDS ORDERED: INSULIN DETEMIR (LEVEMIR) 100 UNIT/ML SYR SQ SCH (07:00)
[2022-02-12] MEDS: SODIUM CHLORIDE 0.9% 1,000 ML IV SCH (07:02)
[2022-02-12 07:10] LABS: Glucose,Whole Blood 101 mg/dL (70-110)
[2022-02-12] MEDS: D5-0.45% NACL WITH KCL 20MEQ/L 1,000 ML IV SCH (07:10)
[2022-02-12] MEDS: IPRATROPIUM-ALBUTEROL 3 ML NEB INHALATION PRN ×2 (07:27→11:13)
[2022-02-12] MEDS ORDERED: D5-0.45% NACL WITH KCL 20MEQ/L 1,000 ML IV SCH (07:30)
[2022-02-12] MEDS: POTASSIUM BICARBONATE/CIT AC 20 MEQ TABLET.EFF NG-TUBE SCH ×2 (07:39→08:06)
[2022-02-12 08:14] LABS: Glucose,Whole Blood 119 mg/dL (70-110)
[2022-02-12] MEDS: INSULIN ASPART (NovoLOG) 100 UNIT/ML VIAL SQ SCH ×2 (08:20→12:24)
--- NOTE | 2022-02-12 08:20 | P.HPIM ---
History of Present Illness H&P Date: 02/12/22 Chief Complaint: Altered mental status This is a history and physical 51-year-old white male with known history of end- stage renal disease related to diabetic nephropathy who was found at his home unresponsive. The patient was evaluated in the emergency room and found to have diabetic ketoacidosis. He has not been stabilized. He was recently discharged for similar issues but has significant noncompliance and stubbornness. History of melanoma in the past as well. In the last 3-4 months he has had ESRD due to diabetic nephropathy. History of noncompliance Review of Systems ROS unobtainable: due to mental status Past Medical History Past Medical History: Diabetes Mellitus, GERD/Reflux, Renal Disease Additional Past Medical History / Comment(s): IDDM type II, diabetic neuropathy bilateral feet, DKA, ESRD on HD, past perianal abscess/fistula with surgery, BPH/urinary retention with surgery, UTI. self cath four times a day, dialysis Tues/thur/sat History of Any Multi-Drug Resistant Organisms: None Reported Past Surgical History: No Surgical Hx Reported Additional Past Surgical History / Comment(s): 08/2014 cystoscopy with TURP, rectal exam/I&D/fistulotomy. I&D back Past Anesthesia/Blood Transfusion Reactions: No Reported Reaction Smoking Status: Current every day smoker - Past Family History Mother Family Medical History: Diabetes Mellitus Additional Family Medical History / Comment(s): mother is Father Family Medical History: No Reported History Additional Family Medical History / Comment(s): Father is healthy. Medications and Allergies Home Medications Medication Instructions Recorded Confirmed Type Insulin Aspart [NovoLOG Flexpen] See Protocol SQ AC-TID 07/09/19 02/11/22 History Insulin Degludec [Tresiba 70 units SQ HS 03/18/21 02/11/22 History Flextouch U-200 Pen] lisinopriL [Zestril] 40 mg PO HS 03/18/21 02/11/22 History Lansoprazole 30 mg PO DAILY 04/07/21 02/11/22 History Ondansetron [Zofran] 4 mg PO Q6H PRN 11/28/21 02/11/22 History Hyoscyamine Sulfate [Levbid] 0.375 mg PO Q12HR PRN 01/26/22 02/11/22 History Prochlorperazine [Compazine] 10 mg PO TID 01/26/22 02/11/22 History hydrALAZINE HCL [Apresoline] 100 mg PO TID 01/26/22 02/11/22 History Ergocalciferol [Vitamin D2 (1250 1,250 mcg PO Q7D 02/01/22 02/11/22 History Mcg = 49959 Iu)] Sertraline HCl [Zoloft] 25 mg PO DAILY 02/01/22 02/11/22 History carvediloL [Coreg] 6.25 mg PO BID 02/01/22 02/11/22 History Allergies Allergy/AdvReac Type Severity Reaction Status Date / Time No Known Allergies Allergy Verified 02/11/22 10:22 Physical Exam Vitals: Vital Signs Temp Pulse Resp BP BP Pulse Ox FiO2 02/12/22 07:51 82 02/12/22 07:41 88 02/12/22 07:26 40 02/12/22 07:00 84 16 113/62 100 02/12/22 06:45 84 16 105/59 100 02/12/22 06:30 84 15 119/65 100 02/12/22 06:15 83 18 119/65 100 02/12/22 06:00 84 18 122/60 100 02/12/22 05:45 82 18 108/56 100 02/12/22 05:30 92 16 97/56 100 02/12/22 05:15 82 16 107/57 99 02/12/22 05:00 84 16 92/51 99 02/12/22 04:45 85 16 138/57 99 02/12/22 04:30 82 16 100/52 99 02/12/22 04:22 40 02/12/22 04:15 82 16 105/55 99 02/12/22 04:00 98.3 F 82 16 111/82 99 40 02/12/22 03:45 82 16 109/54 99 02/12/22 03:30 82 34 H 105/53 99 02/12/22 03:15 81 18 109/57 99 02/12/22 03:00 82 18 97/51 99 02/12/22 02:45 82 18 94/50 99 02/12/22 02:30 84 18 99/52 99 02/12/22 02:15 83 18 99/50 99 02/12/22 02:00 81 20 96/53 99 02/12/22 01:45 83 18 100/53 100 02/12/22 01:30 84 18 104/51 99 02/12/22 01:19 40 02/12/22 01:15 85 18 111/57 100 02/12/22 01:00 84 18 113/59 99 02/12/22 00:45 82 18 117/56 99 02/12/22 00:30 84 17 117/57 99 02/12/22 00:15 85 20 122/57 99 02/12/22 00:00 98.3 F 84 18 112/55 99 50 02/11/22 23:45 84 17 115/56 99 02/11/22 23:30 85 18 116/57 99 02/11/22 23:15 86 20 113/57 100 02/11/22 23:00 85 20 111/55 100 02/11/22 22:45 86 18 109/60 100 02/11/22 22:30 91 18 138/65 98 02/11/22 22:15 90 16 115/56 100 02/11/22 22:00 89 18 114/59 100 02/11/22 21:45 90 19 118/58 100 02/11/22 21:30 90 19 95/47 100 02/11/22 21:15 92 19 98/52 100 02/11/22 21:00 98.8 F 92 19 104/52 100 02/11/22 20:45 93 19 117/57 100 02/11/22 20:30 95 19 114/56 100 02/11/22 20:15 97 19 99/51 100 02/11/22 20:12 50 02/11/22 20:00 99.3 F 97 20 111/57 100 50 02/11/22 19:00 98 20 107/51 100 02/11/22 18:45 99 20 99/49 100 02/11/22 18:30 97 19 95/49 100 02/11/22 18:15 96 19 114/60 100 02/11/22 18:00 95 15 120/57 100 02/11/22 17:45 95 19 130/63 100 02/11/22 17:30 93 20 132/65 100 02/11/22 17:15 92 20 146/66 100 02/11/22 17:00 96.6 F L 93 21 128/63 100 40 02/11/22 16:46 50 02/11/22 16:45 90 20 128/65 100 02/11/22 16:30 87 13 133/67 100 02/11/22 16:15 86 19 123/61 100 02/11/22 16:00 85 20 114/61 100 10 02/11/22 15:45 84 15 113/61 100 02/11/22 15:30 82 19 113/59 100 02/11/22 15:15 81 19 127/65 100 02/11/22 15:12 80 19 127/65 100 02/11/22 14:50 50 02/11/22 14:48 112/56 02/11/22 14:19 50 02/11/22 13:26 78 22 109/66 100 02/11/22 13:03 96 16 90/59 100 02/11/22 12:08 91.7 F L 02/11/22 12:07 50 02/11/22 11:21 79 26 H 121/67 100 02/11/22 11:10 81 23 93/53 100 02/11/22 10:59 146 H 22 78/48 100 02/11/22 10:48 156 H 16 100/57 100 02/11/22 10:22 155 H 18 98/58 99 02/11/22 09:08 161 H 18 104/49 100 02/11/22 08:50 160 H Intake and Output 02/11/22 02/12/22 02/12/22 22:59 06:59 14:59 Intake Total 0457.450 2951.686 203.918 Output Total 75 170 5 Balance 0867.151 2795.686 198.918 Intake: IV 1600 1600 100 D5-0.45% NaCl with KCl 1050 20Meq/l 1,000 ml @ 150 mls/hr IV .Q6H40M [facility] Rx# :[id number] D5-0.45% NaCl with KCl 50 20Meq/l 1,000 ml @ 50 mls /hr IV .Q20H [facility] Rx#: [id number] Dextrose 5% in Water 1, 400 400 50 000 ml @ 50 mls/hr IV . Q23H [facility] with Sodium Bicarb (1 Meq/ml) 150 ml Rx#:[id number] Sodium Chloride 0.9% 1, 1200 150 000 ml @ 150 mls/hr IV . Q6H40M [facility] [place] Rx#:[id number] Intake, IV Titration 211.340 295.686 103.918 Amount Insulin Regular 100 unit 95.906 95.686 In Sodium Chloride 0.9% 100 ml @ 0.1 UNITS/KG/HR 9.163 mls/hr IV .Q11H2M [facility] [place] Rx#:[id number] Norepinephrine 32 mg In 20.197 23.634 Sodium Chloride 0.9% 218 ml @ 0.03 MCG/KG/MIN 1. 276 mls/hr IV .Q24H [facility] Rx#:[id number] propofoL 1,000 mg In 95.237 200 80.284 Empty Bag 1 bag @ 15 MCG/ KG/MIN 8.165 mls/hr IV . [id number] [facility] [place] Rx#:[id number] Output: Gastric Drainage 150 Urine 75 20 5 Other: Voiding Method Indwelling Catheter Indwelling Catheter # Bowel Movements 1 Weight 90.718 kg 86.4 kg 86 kg - Constitutional General appearance: no acute distress - EENT Eyes: EOMI - Neck Neck: no lymphadenopathy - Respiratory Respiratory: bilateral: CTA - Cardiovascular Rhythm: regular Heart sounds: normal: S1, S2 Abnormal Heart Sounds: no S3 Gallop - Gastrointestinal General gastrointestinal: soft, no tenderness - Integumentary Integumentary: no cellulitis - Psychiatric Psychiatric: no A&O x's 3 Results CBC & Chem 7: 02/12/22 04:30 02/12/22 04:30 Labs: Abnormal Lab Results - Last 24 Hours (Table) 02/11/22 02/11/22 02/11/22 Range/Units 07:45 07:45 07:45 WBC 23.7 H (3.8-10.6) k/uL RBC 3.90 L (4.30-5.90) m/uL Hgb 11.1 L (13.0-17.5) gm/dL Hct (39.0-53.0) % MCV 110.7 H D (80.0-100.0) fL MCHC 25.6 L (31.0-37.0) g/dL Neutrophils # (Manual) 20.30 H (1.3-7.7) k/uL Lymphocytes # (Manual) 0.95 L (1.0-4.8) k/uL Monocytes # (Manual) 1.90 H (0-1.0) k/uL Metamyelocytes # (Man) 0.47 H (0) k/uL Myelocytes # (Manual) 0.47 H (0) k/uL Macrocytosis Marked A ABG pH (7.35-7.45) ABG pCO2 (35-45) mmHg ABG pO2 (83-108) mmHg ABG HCO3 (21-25) mmol/L ABG Total CO2 (19-24) mmol/L ABG O2 Saturation (94-97) % Sodium 125 L (137-145) mmol/L Potassium 9.7 H* (3.5-5.1) mmol/L Chloride 86 L (98-107) mmol/L Carbon Dioxide 7 L* (22-30) mmol/L BUN 82 H (9-20) mg/dL Creatinine 11.06 H* (0.66-1.25) mg/dL Glucose 1331 H* (74-99) mg/dL POC Glucose (mg/dL) (70-110) mg/dL Calcium 8.1 L (8.4-10.2) mg/dL Alkaline Phosphatase 243 H (38-126) U/L Troponin I 0.396 H* (0.000-0.034) ng/mL Total Protein 5.2 L (6.3-8.2) g/dL Albumin 3.3 L (3.5-5.0) g/dL Urine Protein (Negative) Urine Glucose (UA) (Negative) Urine Ketones (Negative) Urine Blood (Negative) 02/11/22 02/11/22 02/11/22 Range/Units 07:50 07:51 09:16 WBC (3.8-10.6) k/uL RBC (4.30-5.90) m/uL Hgb (13.0-17.5) gm/dL Hct (39.0-53.0) % MCV (80.0-100.0) fL MCHC (31.0-37.0) g/dL Neutrophils # (Manual) (1.3-7.7) k/uL Lymphocytes # (Manual) (1.0-4.8) k/uL Monocytes # (Manual) (0-1.0) k/uL Metamyelocytes # (Man) (0) k/uL Myelocytes # (Manual) (0) k/uL Macrocytosis ABG pH <6.80 L* (7.35-7.45) ABG pCO2 33 L (35-45) mmHg ABG pO2 >400 H (83-108) mmHg ABG HCO3 4 L* (21-25) mmol/L ABG Total CO2 5 L (19-24) mmol/L ABG O2 Saturation 99.7 H (94-97) % Sodium (137-145) mmol/L Potassium (3.5-5.1) mmol/L Chloride (98-107) mmol/L Carbon Dioxide (22-30) mmol/L BUN (9-20) mg/dL Creatinine (0.66-1.25) mg/dL Glucose (74-99) mg/dL POC Glucose (mg/dL) >600 H (70-110) mg/dL Calcium (8.4-10.2) mg/dL Alkaline Phosphatase (38-126) U/L Troponin I (0.000-0.034) ng/mL Total Protein (6.3-8.2) g/dL Albumin (3.5-5.0) g/dL Urine Protein 3+ H (Negative) Urine Glucose (UA) 4+ H (Negative) Urine Ketones 1+ H (Negative) Urine Blood Trace H (Negative) 02/11/22 02/11/22 02/11/22 Range/Units 10:27 11:54 12:58 WBC (3.8-10.6) k/uL RBC (4.30-5.90) m/uL Hgb (13.0-17.5) gm/dL Hct (39.0-53.0) % MCV (80.0-100.0) fL MCHC (31.0-37.0) g/dL Neutrophils # (Manual) (1.3-7.7) k/uL Lymphocytes # (Manual) (1.0-4.8) k/uL Monocytes # (Manual) (0-1.0) k/uL Metamyelocytes # (Man) (0) k/uL Myelocytes # (Manual) (0) k/uL Macrocytosis ABG pH (7.35-7.45) ABG pCO2 (35-45) mmHg ABG pO2 (83-108) mmHg ABG HCO3 (21-25) mmol/L ABG Total CO2 (19-24) mmol/L ABG O2 Saturation (94-97) % Sodium (137-145) mmol/L Potassium (3.5-5.1) mmol/L Chloride (98-107) mmol/L Carbon Dioxide (22-30) mmol/L BUN (9-20) mg/dL Creatinine (0.66-1.25) mg/dL Glucose (74-99) mg/dL POC Glucose (mg/dL) >600 H >600 H 567 H (70-110) mg/dL Calcium (8.4-10.2) mg/dL Alkaline Phosphatase (38-126) U/L Troponin I (0.000-0.034) ng/mL Total Protein (6.3-8.2) g/dL Albumin (3.5-5.0) g/dL Urine Protein (Negative) Urine Glucose (UA) (Negative) Urine Ketones (Negative) Urine Blood (Negative) 02/11/22 02/11/22 02/11/22 Range/Units 14:16 15:14 16:17 WBC (3.8-10.6) k/uL RBC (4.30-5.90) m/uL Hgb (13.0-17.5) gm/dL Hct (39.0-53.0) % MCV (80.0-100.0) fL MCHC (31.0-37.0) g/dL Neutrophils # (Manual) (1.3-7.7) k/uL Lymphocytes # (Manual) (1.0-4.8) k/uL Monocytes # (Manual) (0-1.0) k/uL Metamyelocytes # (Man) (0) k/uL Myelocytes # (Manual) (0) k/uL Macrocytosis ABG pH (7.35-7.45) ABG pCO2 (35-45) mmHg ABG pO2 (83-108) mmHg ABG HCO3 (21-25) mmol/L ABG Total CO2 (19-24) mmol/L ABG O2 Saturation (94-97) % Sodium (137-145) mmol/L Potassium (3.5-5.1) mmol/L Chloride (98-107) mmol/L Carbon Dioxide (22-30) mmol/L BUN (9-20) mg/dL Creatinine (0.66-1.25) mg/dL Glucose (74-99) mg/dL POC Glucose (mg/dL) >600 H 582 H 537 H (70-110) mg/dL Calcium (8.4-10.2) mg/dL Alkaline Phosphatase (38-126) U/L Troponin I (0.000-0.034) ng/mL Total Protein (6.3-8.2) g/dL Albumin (3.5-5.0) g/dL Urine Protein (Negative) Urine Glucose (UA) (Negative) Urine Ketones (Negative) Urine Blood (Negative) 02/11/22 02/11/22 02/11/22 Range/Units 17:11 18:04 19:05 WBC (3.8-10.6) k/uL RBC (4.30-5.90) m/uL Hgb (13.0-17.5) gm/dL Hct (39.0-53.0) % MCV (80.0-100.0) fL MCHC (31.0-37.0) g/dL Neutrophils # (Manual) (1.3-7.7) k/uL Lymphocytes # (Manual) (1.0-4.8) k/uL Monocytes # (Manual) (0-1.0) k/uL Metamyelocytes # (Man) (0) k/uL Myelocytes # (Manual) (0) k/uL Macrocytosis ABG pH (7.35-7.45) ABG pCO2 (35-45) mmHg ABG pO2 (83-108) mmHg ABG HCO3 (21-25) mmol/L ABG Total CO2 (19-24) mmol/L ABG O2 Saturation (94-97) % Sodium 131 L (137-145) mmol/L Potassium (3.5-5.1) mmol/L Chloride 97 L (98-107) mmol/L Carbon Dioxide 16 L (22-30) mmol/L BUN 47 H (9-20) mg/dL Creatinine 5.27 H (0.66-1.25) mg/dL Glucose 504 H* (74-99) mg/dL POC Glucose (mg/dL) 468 H 453 H (70-110) mg/dL Calcium 7.3 L (8.4-10.2) mg/dL Alkaline Phosphatase (38-126) U/L Troponin I (0.000-0.034) ng/mL Total Protein (6.3-8.2) g/dL Albumin (3.5-5.0) g/dL Urine Protein (Negative) Urine Glucose (UA) (Negative) Urine Ketones (Negative) Urine Blood (Negative) 02/11/22 02/11/22 02/11/22 Range/Units 20:20 21:10 21:45 WBC (3.8-10.6) k/uL RBC (4.30-5.90) m/uL Hgb (13.0-17.5) gm/dL Hct (39.0-53.0) % MCV (80.0-100.0) fL MCHC (31.0-37.0) g/dL Neutrophils # (Manual) (1.3-7.7) k/uL Lymphocytes # (Manual) (1.0-4.8) k/uL Monocytes # (Manual) (0-1.0) k/uL Metamyelocytes # (Man) (0) k/uL Myelocytes # (Manual) (0) k/uL Macrocytosis ABG pH (7.35-7.45) ABG pCO2 (35-45) mmHg ABG pO2 (83-108) mmHg ABG HCO3 (21-25) mmol/L ABG Total CO2 (19-24) mmol/L ABG O2 Saturation (94-97) % Sodium 133 L (137-145) mmol/L Potassium (3.5-5.1) mmol/L Chloride (98-107) mmol/L Carbon Dioxide (22-30) mmol/L BUN 49 H (9-20) mg/dL Creatinine 5.35 H (0.66-1.25) mg/dL Glucose 338 H (74-99) mg/dL POC Glucose (mg/dL) 410 H 369 H (70-110) mg/dL Calcium (8.4-10.2) mg/dL Alkaline Phosphatase (38-126) U/L Troponin I (0.000-0.034) ng/mL Total Protein (6.3-8.2) g/dL Albumin (3.5-5.0) g/dL Urine Protein (Negative) Urine Glucose (UA) (Negative) Urine Ketones (Negative) Urine Blood (Negative) 02/11/22 02/11/22 02/12/22 Range/Units 22:04 23:13 00:03 WBC (3.8-10.6) k/uL RBC (4.30-5.90) m/uL Hgb (13.0-17.5) gm/dL Hct (39.0-53.0) % MCV (80.0-100.0) fL MCHC (31.0-37.0) g/dL Neutrophils # (Manual) (1.3-7.7) k/uL Lymphocytes # (Manual) (1.0-4.8) k/uL Monocytes # (Manual) (0-1.0) k/uL Metamyelocytes # (Man) (0) k/uL Myelocytes # (Manual) (0) k/uL Macrocytosis ABG pH (7.35-7.45) ABG pCO2 (35-45) mmHg ABG pO2 (83-108) mmHg ABG HCO3 (21-25) mmol/L ABG Total CO2 (19-24) mmol/L ABG O2 Saturation (94-97) % Sodium (137-145) mmol/L Potassium (3.5-5.1) mmol/L Chloride (98-107) mmol/L Carbon Dioxide (22-30) mmol/L BUN (9-20) mg/dL Creatinine (0.66-1.25) mg/dL Glucose (74-99) mg/dL POC Glucose (mg/dL) 327 H 286 H 266 H (70-110) mg/dL Calcium (8.4-10.2) mg/dL Alkaline Phosphatase (38-126) U/L Troponin I (0.000-0.034) ng/mL Total Protein (6.3-8.2) g/dL Albumin (3.5-5.0) g/dL Urine Protein (Negative) Urine Glucose (UA) (Negative) Urine Ketones (Negative) Urine Blood (Negative) 02/12/22 02/12/22 02/12/22 Range/Units 00:50 01:18 02:03 WBC (3.8-10.6) k/uL RBC (4.30-5.90) m/uL Hgb (13.0-17.5) gm/dL Hct (39.0-53.0) % MCV (80.0-100.0) fL MCHC (31.0-37.0) g/dL Neutrophils # (Manual) (1.3-7.7) k/uL Lymphocytes # (Manual) (1.0-4.8) k/uL Monocytes # (Manual) (0-1.0) k/uL Metamyelocytes # (Man) (0) k/uL Myelocytes # (Manual) (0) k/uL Macrocytosis ABG pH (7.35-7.45) ABG pCO2 (35-45) mmHg ABG pO2 (83-108) mmHg ABG HCO3 (21-25) mmol/L ABG Total CO2 (19-24) mmol/L ABG O2 Saturation (94-97) % Sodium 134 L (137-145) mmol/L Potassium (3.5-5.1) mmol/L Chloride (98-107) mmol/L Carbon Dioxide (22-30) mmol/L BUN 53 H (9-20) mg/dL Creatinine 5.60 H (0.66-1.25) mg/dL Glucose 251 H (74-99) mg/dL POC Glucose (mg/dL) 227 H 209 H (70-110) mg/dL Calcium (8.4-10.2) mg/dL Alkaline Phosphatase (38-126) U/L Troponin I (0.000-0.034) ng/mL Total Protein (6.3-8.2) g/dL Albumin (3.5-5.0) g/dL Urine Protein (Negative) Urine Glucose (UA) (Negative) Urine Ketones (Negative) Urine Blood (Negative) 02/12/22 02/12/22 02/12/22 Range/Units 02:56 04:00 04:30 WBC 15.6 H (3.8-10.6) k/uL RBC 3.17 L (4.30-5.90) m/uL Hgb 9.3 L D (13.0-17.5) gm/dL Hct 26.6 L (39.0-53.0) % MCV (80.0-100.0) fL MCHC (31.0-37.0) g/dL Neutrophils # (Manual) (1.3-7.7) k/uL Lymphocytes # (Manual) (1.0-4.8) k/uL Monocytes # (Manual) (0-1.0) k/uL Metamyelocytes # (Man) (0) k/uL Myelocytes # (Manual) (0) k/uL Macrocytosis ABG pH (7.35-7.45) ABG pCO2 (35-45) mmHg ABG pO2 (83-108) mmHg ABG HCO3 (21-25) mmol/L ABG Total CO2 (19-24) mmol/L ABG O2 Saturation (94-97) % Sodium (137-145) mmol/L Potassium (3.5-5.1) mmol/L Chloride (98-107) mmol/L Carbon Dioxide (22-30) mmol/L BUN (9-20) mg/dL Creatinine (0.66-1.25) mg/dL Glucose (74-99) mg/dL POC Glucose (mg/dL) 182 H 159 H (70-110) mg/dL Calcium (8.4-10.2) mg/dL Alkaline Phosphatase (38-126) U/L Troponin I (0.000-0.034) ng/mL Total Protein (6.3-8.2) g/dL Albumin (3.5-5.0) g/dL Urine Protein (Negative) Urine Glucose (UA) (Negative) Urine Ketones (Negative) Urine Blood (Negative) 02/12/22 02/12/22 02/12/22 Range/Units 04:30 05:16 05:50 WBC (3.8-10.6) k/uL RBC (4.30-5.90) m/uL Hgb (13.0-17.5) gm/dL Hct (39.0-53.0) % MCV (80.0-100.0) fL MCHC (31.0-37.0) g/dL Neutrophils # (Manual) (1.3-7.7) k/uL Lymphocytes # (Manual) (1.0-4.8) k/uL Monocytes # (Manual) (0-1.0) k/uL Metamyelocytes # (Man) (0) k/uL Myelocytes # (Manual) (0) k/uL Macrocytosis ABG pH (7.35-7.45) ABG pCO2 (35-45) mmHg ABG pO2 203 H (83-108) mmHg ABG HCO3 27 H (21-25) mmol/L ABG Total CO2 29 H (19-24) mmol/L ABG O2 Saturation 100.0 H (94-97) % Sodium 134 L (137-145) mmol/L Potassium (3.5-5.1) mmol/L Chloride (98-107) mmol/L Carbon Dioxide (22-30) mmol/L BUN 50 H (9-20) mg/dL Creatinine 5.78 H (0.66-1.25) mg/dL Glucose 117 H (74-99) mg/dL POC Glucose (mg/dL) 113 H (70-110) mg/dL Calcium 7.2 L (8.4-10.2) mg/dL Alkaline Phosphatase (38-126) U/L Troponin I (0.000-0.034) ng/mL Total Protein (6.3-8.2) g/dL Albumin (3.5-5.0) g/dL Urine Protein (Negative) Urine Glucose (UA) (Negative) Urine Ketones (Negative) Urine Blood (Negative) 02/12/22 Range/Units 08:11 WBC (3.8-10.6) k/uL RBC (4.30-5.90) m/uL Hgb (13.0-17.5) gm/dL Hct (39.0-53.0) % MCV (80.0-100.0) fL MCHC (31.0-37.0) g/dL Neutrophils # (Manual) (1.3-7.7) k/uL Lymphocytes # (Manual) (1.0-4.8) k/uL Monocytes # (Manual) (0-1.0) k/uL Metamyelocytes # (Man) (0) k/uL Myelocytes # (Manual) (0) k/uL Macrocytosis ABG pH (7.35-7.45) ABG pCO2 (35-45) mmHg ABG pO2 (83-108) mmHg ABG HCO3 (21-25) mmol/L ABG Total CO2 (19-24) mmol/L ABG O2 Saturation (94-97) % Sodium (137-145) mmol/L Potassium (3.5-5.1) mmol/L Chloride (98-107) mmol/L Carbon Dioxide (22-30) mmol/L BUN (9-20) mg/dL Creatinine (0.66-1.25) mg/dL Glucose (74-99) mg/dL POC Glucose (mg/dL) 119 H (70-110) mg/dL Calcium (8.4-10.2) mg/dL Alkaline Phosphatase (38-126) U/L Troponin I (0.000-0.034) ng/mL Total Protein (6.3-8.2) g/dL Albumin (3.5-5.0) g/dL Urine Protein (Negative) Urine Glucose (UA) (Negative) Urine Ketones (Negative) Urine Blood (Negative) Assessment and Plan (1) Altered mental status Current Visit: Yes Status: Acute Code(s): R41.82 - ALTERED MENTAL STATUS, UNSPECIFIED SNOMED Code(s): 784887213 (2) Diabetic ketoacidosis Current Visit: Yes Status: Acute Code(s): E13.10 - OTH DIABETES MELLITUS WITH KETOACIDOSIS WITHOUT COMA SNOMED Code(s): 34080119 (3) Dialysis patient, noncompliant Current Visit: Yes Status: Acute Code(s): Z91.15 - PATIENT'S NONCOMPLIANCE WITH RENAL DIALYSIS SNOMED Code(s): 100057339532217 (4) Hyperkalemia Current Visit: Yes Status: Acute Code(s): E87.5 - HYPERKALEMIA SNOMED Code(s): 92665722 (5) Chronic kidney disease Current Visit: No Status: Acute Code(s): N18.9 - CHRONIC KIDNEY DISEASE, UNSPECIFIED SNOMED Code(s): 684432172 (6) Chronic renal failure Current Visit: No Status: Acute Code(s): N18.9 - CHRONIC KIDNEY DISEASE, UNSPECIFIED SNOMED Code(s): 91409227 (7) History of melanoma Current Visit: No Status: Acute Code(s): Z85.820 - PERSONAL HISTORY OF MALIGNANT MELANOMA OF SKIN SNOMED Code(s): 172451063 Plan: The patient is now insulin drip. Check CBC and CMP in a.m. Basal insulin. Prognosis is guarded secondary to his unknown timeframe that he was hyperglycemic. We'll continue to follow. See orders otherwise.
--- NOTE | 2022-02-12 08:43 | XR ---
EXAMINATION TYPE: XR chest 1V portable DATE OF EXAM: 02/12/2022 COMPARISON: Chest x-ray 02/11/2022 HISTORY: Intubated TECHNIQUE: Single frontal view of the chest is obtained. FINDINGS: Endotracheal tube, NG tube, right jugular dialysis catheter are overlying appropriate posi tions. Patient is rotated. There is no evident pneumothorax or pleural effusion. Cardiac mediastinal silhouette is within normal limits accounting for technique. No evident airspace disease. Question so me mild prominence interstitium. IMPRESSION: There may be a component of volume overload, interstitial edema.
--- NOTE | 2022-02-12 09:03 | P.PN ---
Subjective Patient is seen in follow for end-stage renal disease. He is maintained on hemodialysis on Tuesday schedule. Completed dialysis yesterday. Not much fluid was removed as he was on vasopressor support. Electrolytes improved. Off insulin drip. Vital signs are stable. General: Resting in bed. HEENT: Head exam is unremarkable. Intubated. LUNGS: Breath sounds decreased. HEART: Rate and Rhythm are regular. ABDOMEN: Soft, no distention. EXTREMITITES: 1+ edema. Objective - Vital Signs Vital signs: Vital Signs Temp 98.2 F 02/12/22 08:00 Pulse 85 02/12/22 08:30 Resp 16 02/12/22 08:30 BP 119/66 02/12/22 08:30 Pulse Ox 100 02/12/22 08:30 FiO2 40 02/12/22 08:00 Intake & Output 02/11/22 02/12/22 02/12/22 18:59 06:59 18:59 Intake Total 6757.945 4639.695 224.329 Output Total 140 205 5 Balance 5721.561 9875.695 219.329 Weight 90.718 kg 86.4 kg 86 kg Intake: IV 1000 2400 100 D5-0.45% NaCl with KCl 1050 20Meq/l 1,000 ml @ 150 mls/hr IV .Q6H40M [facility] Rx# :[id number] D5-0.45% NaCl with KCl 50 20Meq/l 1,000 ml @ 50 mls /hr IV .Q20H [facility] Rx#: [id number] Dextrose 5% in Water 1, 250 600 50 000 ml @ 50 mls/hr IV . Q23H [facility] with Sodium Bicarb (1 Meq/ml) 150 ml Rx#:[id number] Sodium Chloride 0.9% 1, 750 750 000 ml @ 150 mls/hr IV . Q6H40M [facility] Rx#:[id number] Intake, IV Titration 41.624 494.695 124.329 Amount Insulin Regular 100 unit 191.592 In Sodium Chloride 0.9% 100 ml @ 0.1 UNITS/KG/HR 9.163 mls/hr IV .Q11H2M [facility] Rx#:[id number] Norepinephrine 32 mg In 36.861 7.866 23.634 Sodium Chloride 0.9% 218 ml @ 0.03 MCG/KG/MIN 1. 276 mls/hr IV .Q24H [facility] Rx#:[id number] propofoL 1,000 mg In 4.763 295.237 100.695 Empty Bag 1 bag @ 15 MCG/ KG/MIN 8.165 mls/hr IV . [id number] [facility] Rx#:[id number] Hemodialysis 400 Output: Gastric Drainage 150 Urine 140 55 5 Other: Voiding Method Indwelling Catheter Indwelling Catheter # Bowel Movements 1 - Labs CBC & Chem 7: 02/12/22 04:30 02/12/22 04:30 Labs: Abnormal Lab Results - Last 24 Hours (Table) 02/11/22 02/11/22 02/11/22 Range/Units 09:16 10:27 11:54 WBC (3.8-10.6) k/uL RBC (4.30-5.90) m/uL Hgb (13.0-17.5) gm/dL Hct (39.0-53.0) % ABG pO2 (83-108) mmHg ABG HCO3 (21-25) mmol/L ABG Total CO2 (19-24) mmol/L ABG O2 Saturation (94-97) % Sodium (137-145) mmol/L Chloride (98-107) mmol/L Carbon Dioxide (22-30) mmol/L BUN (9-20) mg/dL Creatinine (0.66-1.25) mg/dL Glucose (74-99) mg/dL POC Glucose (mg/dL) >600 H >600 H >600 H (70-110) mg/dL Calcium (8.4-10.2) mg/dL 02/11/22 02/11/22 02/11/22 Range/Units 12:58 14:16 15:14 WBC (3.8-10.6) k/uL RBC (4.30-5.90) m/uL Hgb (13.0-17.5) gm/dL Hct (39.0-53.0) % ABG pO2 (83-108) mmHg ABG HCO3 (21-25) mmol/L ABG Total CO2 (19-24) mmol/L ABG O2 Saturation (94-97) % Sodium (137-145) mmol/L Chloride (98-107) mmol/L Carbon Dioxide (22-30) mmol/L BUN (9-20) mg/dL Creatinine (0.66-1.25) mg/dL Glucose (74-99) mg/dL POC Glucose (mg/dL) 567 H >600 H 582 H (70-110) mg/dL Calcium (8.4-10.2) mg/dL 02/11/22 02/11/22 02/11/22 Range/Units 16:17 17:11 18:04 WBC (3.8-10.6) k/uL RBC (4.30-5.90) m/uL Hgb (13.0-17.5) gm/dL Hct (39.0-53.0) % ABG pO2 (83-108) mmHg ABG HCO3 (21-25) mmol/L ABG Total CO2 (19-24) mmol/L ABG O2 Saturation (94-97) % Sodium 131 L (137-145) mmol/L Chloride 97 L (98-107) mmol/L Carbon Dioxide 16 L (22-30) mmol/L BUN 47 H (9-20) mg/dL Creatinine 5.27 H (0.66-1.25) mg/dL Glucose 504 H* (74-99) mg/dL POC Glucose (mg/dL) 537 H 468 H (70-110) mg/dL Calcium 7.3 L (8.4-10.2) mg/dL 02/11/22 02/11/22 02/11/22 Range/Units 19:05 20:20 21:10 WBC (3.8-10.6) k/uL RBC (4.30-5.90) m/uL Hgb (13.0-17.5) gm/dL Hct (39.0-53.0) % ABG pO2 (83-108) mmHg ABG HCO3 (21-25) mmol/L ABG Total CO2 (19-24) mmol/L ABG O2 Saturation (94-97) % Sodium (137-145) mmol/L Chloride (98-107) mmol/L Carbon Dioxide (22-30) mmol/L BUN (9-20) mg/dL Creatinine (0.66-1.25) mg/dL Glucose (74-99) mg/dL POC Glucose (mg/dL) 453 H 410 H 369 H (70-110) mg/dL Calcium (8.4-10.2) mg/dL 02/11/22 02/11/22 02/11/22 Range/Units 21:45 22:04 23:13 WBC (3.8-10.6) k/uL RBC (4.30-5.90) m/uL Hgb (13.0-17.5) gm/dL Hct (39.0-53.0) % ABG pO2 (83-108) mmHg ABG HCO3 (21-25) mmol/L ABG Total CO2 (19-24) mmol/L ABG O2 Saturation (94-97) % Sodium 133 L (137-145) mmol/L Chloride (98-107) mmol/L Carbon Dioxide (22-30) mmol/L BUN 49 H (9-20) mg/dL Creatinine 5.35 H (0.66-1.25) mg/dL Glucose 338 H (74-99) mg/dL POC Glucose (mg/dL) 327 H 286 H (70-110) mg/dL Calcium (8.4-10.2) mg/dL 02/12/22 02/12/22 02/12/22 Range/Units 00:03 00:50 01:18 WBC (3.8-10.6) k/uL RBC (4.30-5.90) m/uL Hgb (13.0-17.5) gm/dL Hct (39.0-53.0) % ABG pO2 (83-108) mmHg ABG HCO3 (21-25) mmol/L ABG Total CO2 (19-24) mmol/L ABG O2 Saturation (94-97) % Sodium 134 L (137-145) mmol/L Chloride (98-107) mmol/L Carbon Dioxide (22-30) mmol/L BUN 53 H (9-20) mg/dL Creatinine 5.60 H (0.66-1.25) mg/dL Glucose 251 H (74-99) mg/dL POC Glucose (mg/dL) 266 H 227 H (70-110) mg/dL Calcium (8.4-10.2) mg/dL 02/12/22 02/12/22 02/12/22 Range/Units 02:03 02:56 04:00 WBC (3.8-10.6) k/uL RBC (4.30-5.90) m/uL Hgb (13.0-17.5) gm/dL Hct (39.0-53.0) % ABG pO2 (83-108) mmHg ABG HCO3 (21-25) mmol/L ABG Total CO2 (19-24) mmol/L ABG O2 Saturation (94-97) % Sodium (137-145) mmol/L Chloride (98-107) mmol/L Carbon Dioxide (22-30) mmol/L BUN (9-20) mg/dL Creatinine (0.66-1.25) mg/dL Glucose (74-99) mg/dL POC Glucose (mg/dL) 209 H 182 H 159 H (70-110) mg/dL Calcium (8.4-10.2) mg/dL 02/12/22 02/12/22 02/12/22 Range/Units 04:30 04:30 05:16 WBC 15.6 H (3.8-10.6) k/uL RBC 3.17 L (4.30-5.90) m/uL Hgb 9.3 L D (13.0-17.5) gm/dL Hct 26.6 L (39.0-53.0) % ABG pO2 (83-108) mmHg ABG HCO3 (21-25) mmol/L ABG Total CO2 (19-24) mmol/L ABG O2 Saturation (94-97) % Sodium 134 L (137-145) mmol/L Chloride (98-107) mmol/L Carbon Dioxide (22-30) mmol/L BUN 50 H (9-20) mg/dL Creatinine 5.78 H (0.66-1.25) mg/dL Glucose 117 H (74-99) mg/dL POC Glucose (mg/dL) 113 H (70-110) mg/dL Calcium 7.2 L (8.4-10.2) mg/dL 02/12/22 02/12/22 Range/Units 05:50 08:11 WBC (3.8-10.6) k/uL RBC (4.30-5.90) m/uL Hgb (13.0-17.5) gm/dL Hct (39.0-53.0) % ABG pO2 203 H (83-108) mmHg ABG HCO3 27 H (21-25) mmol/L ABG Total CO2 29 H (19-24) mmol/L ABG O2 Saturation 100.0 H (94-97) % Sodium (137-145) mmol/L Chloride (98-107) mmol/L Carbon Dioxide (22-30) mmol/L BUN (9-20) mg/dL Creatinine (0.66-1.25) mg/dL Glucose (74-99) mg/dL POC Glucose (mg/dL) 119 H (70-110) mg/dL Calcium (8.4-10.2) mg/dL Assessment and Plan Plan: Assessment: 1. End-stage renal disease maintained on hemodialysis on Tuesday schedule via permacath. 2. DKA maintained s/p insulin drip and still on IV fluids. 3. Hyperkalemia secondary to chronic kidney disease, severe hyperglycemia and acidosis. Improved with medical management and dialysis. Potassium now on the lower side. 4. Metabolic acidosis secondary to DKA. Improved. 5. Hyponatremia secondary to hypertonicity from hyperglycemia. Improved. 6. Obstructive uropathy. Patient performs self catheterizations at home. 7. Volume overload. Plan: Hep-Lock IV fluids. Hemodialysis today mostly for ultrafiltration. Plan for another treatment tomorrow per his outpatient schedule. Wean FiO2. Potassium and magnesium being replaced.
--- NOTE | 2022-02-12 09:08 | P.PN ---
Subjective Progress Note Date: 02/12/22 This 51-year-old gentleman with a known history of hypertension diabetes and chronic renal failure on hemodialysis was brought in for altered mental status. Patient was found unresponsive at home. His aunt came to pick him up to take him to dialysis and found him on the floor. It is unknown how long he was down. We have been consult that for cardiac evaluation. Patient's troponin was 0.396, his potassium was 9.7, initial glucose was 1331, BUN 82, creatinine 11. Patient's EKG shows sinus rhythm with short [place] interval, right bundle-branch block, and ST depression. Patient is intubated at this time, lungs are clear, he was intubated to protect his airway. He is currently getting dialyzed. Zachary fried is on Levophed, blood pressure 104/49, he was tachycardic 160, now he has heart rate is 79. Patient is examined resting comfortably in the ICU today sedated and mechanically ventilated. Patient was dialyzed yesterday BUN is 50 creatinine is 5.78 and potassium is 3.5. Patient's Levophed has been turned off his blood pressure is 113/62 heart rate 84 and he remains sinus rhythm on telemetry. He had an echocardiogram shows a normal LV function. He remains on insulin drip. Plan is to extubate patient today. Chest x-ray this morning shows or may be a component of volume overload, interstitial edema Will continue to hold lisinopril, hydralazine, Coreg at this time blood pressure is stable. Objective - Vital Signs Vital signs: Vital Signs Temp 98.3 F 02/12/22 04:00 Pulse 84 02/12/22 07:00 Resp 16 02/12/22 07:00 BP 113/62 02/12/22 07:00 Pulse Ox 100 02/12/22 07:00 FiO2 40 02/12/22 04:22 Intake & Output 02/11/22 02/12/22 02/12/22 18:59 06:59 18:59 Intake Total 7115.681 8702.695 100 Output Total 140 205 5 Balance 4378.468 4178.695 95 Weight 90.718 kg 86.4 kg 86 kg Intake: IV 1000 2400 100 D5-0.45% NaCl with KCl 1050 20Meq/l 1,000 ml @ 150 mls/hr IV .Q6H40M [facility] Rx# :[id number] D5-0.45% NaCl with KCl 50 20Meq/l 1,000 ml @ 50 mls /hr IV .Q20H [facility] Rx#: [id number] Dextrose 5% in Water 1, 250 600 50 000 ml @ 50 mls/hr IV . Q23H [facility] with Sodium Bicarb (1 Meq/ml) 150 ml Rx#:[id number] Sodium Chloride 0.9% 1, 750 750 000 ml @ 150 mls/hr IV . Q6H40M [facility] Rx#:[id number] Intake, IV Titration 41.624 494.695 Amount Insulin Regular 100 unit 191.592 In Sodium Chloride 0.9% 100 ml @ 0.1 UNITS/KG/HR 9.163 mls/hr IV .Q11H2M [facility] Rx#:[id number] Norepinephrine 32 mg In 36.861 7.866 Sodium Chloride 0.9% 218 ml @ 0.03 MCG/KG/MIN 1. 276 mls/hr IV .Q24H [facility] Rx#:[id number] propofoL 1,000 mg In 4.763 295.237 Empty Bag 1 bag @ 15 MCG/ KG/MIN 8.165 mls/hr IV . [id number] [facility] Rx#:[id number] Hemodialysis 400 Output: Gastric Drainage 150 Urine 140 55 5 Other: Voiding Method Indwelling Catheter Indwelling Catheter # Bowel Movements 1 - Exam PHYSICAL EXAM: VITAL SIGNS: Reviewed. GENERAL: Well-developed in no acute distress. HEENT: Head is normocephalic. Pupils are equal, round. Sclerae anicteric. Mucous membranes of the mouth are moist. NECK: Supple. No JVD or thyromegaly RESPIRATORY: Mechanically ventilated CARDIO: Regular rate and rhythm. S1 and S2 heard. No murmur or gallops. EXTREMITIES: Normal range of motion. No clubbing or cyanosis. Peripheral pulses intact. Negative for bilateral lower extremity edema NEURO: Sedated - Labs CBC & Chem 7: 02/12/22 04:30 02/12/22 04:30 Labs: Abnormal Lab Results - Last 24 Hours (Table) 02/11/22 02/11/22 02/11/22 Range/Units 07:28 07:45 07:45 WBC 23.7 H (3.8-10.6) k/uL RBC 3.90 L (4.30-5.90) m/uL Hgb 11.1 L (13.0-17.5) gm/dL Hct (39.0-53.0) % MCV 110.7 H D (80.0-100.0) fL MCHC 25.6 L (31.0-37.0) g/dL Neutrophils # (Manual) 20.30 H (1.3-7.7) k/uL Lymphocytes # (Manual) 0.95 L (1.0-4.8) k/uL Monocytes # (Manual) 1.90 H (0-1.0) k/uL Metamyelocytes # (Man) 0.47 H (0) k/uL Myelocytes # (Manual) 0.47 H (0) k/uL Macrocytosis Marked A APTT 34.2 H (22.0-30.0) sec ABG pH (7.35-7.45) ABG pCO2 (35-45) mmHg ABG pO2 (83-108) mmHg ABG HCO3 (21-25) mmol/L ABG Total CO2 (19-24) mmol/L ABG O2 Saturation (94-97) % Sodium (137-145) mmol/L Potassium (3.5-5.1) mmol/L Chloride (98-107) mmol/L Carbon Dioxide (22-30) mmol/L BUN (9-20) mg/dL Creatinine (0.66-1.25) mg/dL Glucose (74-99) mg/dL POC Glucose (mg/dL) 543 H (70-110) mg/dL Calcium (8.4-10.2) mg/dL Alkaline Phosphatase (38-126) U/L Troponin I (0.000-0.034) ng/mL Total Protein (6.3-8.2) g/dL Albumin (3.5-5.0) g/dL Urine Protein (Negative) Urine Glucose (UA) (Negative) Urine Ketones (Negative) Urine Blood (Negative) 02/11/22 02/11/22 02/11/22 Range/Units 07:45 07:45 07:50 WBC (3.8-10.6) k/uL RBC (4.30-5.90) m/uL Hgb (13.0-17.5) gm/dL Hct (39.0-53.0) % MCV (80.0-100.0) fL MCHC (31.0-37.0) g/dL Neutrophils # (Manual) (1.3-7.7) k/uL Lymphocytes # (Manual) (1.0-4.8) k/uL Monocytes # (Manual) (0-1.0) k/uL Metamyelocytes # (Man) (0) k/uL Myelocytes # (Manual) (0) k/uL Macrocytosis APTT (22.0-30.0) sec ABG pH <6.80 L* (7.35-7.45) ABG pCO2 33 L (35-45) mmHg ABG pO2 >400 H (83-108) mmHg ABG HCO3 4 L* (21-25) mmol/L ABG Total CO2 5 L (19-24) mmol/L ABG O2 Saturation 99.7 H (94-97) % Sodium 125 L (137-145) mmol/L Potassium 9.7 H* (3.5-5.1) mmol/L Chloride 86 L (98-107) mmol/L Carbon Dioxide 7 L* (22-30) mmol/L BUN 82 H (9-20) mg/dL Creatinine 11.06 H* (0.66-1.25) mg/dL Glucose 1331 H* (74-99) mg/dL POC Glucose (mg/dL) (70-110) mg/dL Calcium 8.1 L (8.4-10.2) mg/dL Alkaline Phosphatase 243 H (38-126) U/L Troponin I 0.396 H* (0.000-0.034) ng/mL Total Protein 5.2 L (6.3-8.2) g/dL Albumin 3.3 L (3.5-5.0) g/dL Urine Protein (Negative) Urine Glucose (UA) (Negative) Urine Ketones (Negative) Urine Blood (Negative) 02/11/22 02/11/22 02/11/22 Range/Units 07:51 09:16 10:27 WBC (3.8-10.6) k/uL RBC (4.30-5.90) m/uL Hgb (13.0-17.5) gm/dL Hct (39.0-53.0) % MCV (80.0-100.0) fL MCHC (31.0-37.0) g/dL Neutrophils # (Manual) (1.3-7.7) k/uL Lymphocytes # (Manual) (1.0-4.8) k/uL Monocytes # (Manual) (0-1.0) k/uL Metamyelocytes # (Man) (0) k/uL Myelocytes # (Manual) (0) k/uL Macrocytosis APTT (22.0-30.0) sec ABG pH (7.35-7.45) ABG pCO2 (35-45) mmHg ABG pO2 (83-108) mmHg ABG HCO3 (21-25) mmol/L ABG Total CO2 (19-24) mmol/L ABG O2 Saturation (94-97) % Sodium (137-145) mmol/L Potassium (3.5-5.1) mmol/L Chloride (98-107) mmol/L Carbon Dioxide (22-30) mmol/L BUN (9-20) mg/dL Creatinine (0.66-1.25) mg/dL Glucose (74-99) mg/dL POC Glucose (mg/dL) >600 H >600 H (70-110) mg/dL Calcium (8.4-10.2) mg/dL Alkaline Phosphatase (38-126) U/L Troponin I (0.000-0.034) ng/mL Total Protein (6.3-8.2) g/dL Albumin (3.5-5.0) g/dL Urine Protein 3+ H (Negative) Urine Glucose (UA) 4+ H (Negative) Urine Ketones 1+ H (Negative) Urine Blood Trace H (Negative) 02/11/22 02/11/22 02/11/22 Range/Units 11:54 12:58 14:16 WBC (3.8-10.6) k/uL RBC (4.30-5.90) m/uL Hgb (13.0-17.5) gm/dL Hct (39.0-53.0) % MCV (80.0-100.0) fL MCHC (31.0-37.0) g/dL Neutrophils # (Manual) (1.3-7.7) k/uL Lymphocytes # (Manual) (1.0-4.8) k/uL Monocytes # (Manual) (0-1.0) k/uL Metamyelocytes # (Man) (0) k/uL Myelocytes # (Manual) (0) k/uL Macrocytosis APTT (22.0-30.0) sec ABG pH (7.35-7.45) ABG pCO2 (35-45) mmHg ABG pO2 (83-108) mmHg ABG HCO3 (21-25) mmol/L ABG Total CO2 (19-24) mmol/L ABG O2 Saturation (94-97) % Sodium (137-145) mmol/L Potassium (3.5-5.1) mmol/L Chloride (98-107) mmol/L Carbon Dioxide (22-30) mmol/L BUN (9-20) mg/dL Creatinine (0.66-1.25) mg/dL Glucose (74-99) mg/dL POC Glucose (mg/dL) >600 H 567 H >600 H (70-110) mg/dL Calcium (8.4-10.2) mg/dL Alkaline Phosphatase (38-126) U/L Troponin I (0.000-0.034) ng/mL Total Protein (6.3-8.2) g/dL Albumin (3.5-5.0) g/dL Urine Protein (Negative) Urine Glucose (UA) (Negative) Urine Ketones (Negative) Urine Blood (Negative) 02/11/22 02/11/22 02/11/22 Range/Units 15:14 16:17 17:11 WBC (3.8-10.6) k/uL RBC (4.30-5.90) m/uL Hgb (13.0-17.5) gm/dL Hct (39.0-53.0) % MCV (80.0-100.0) fL MCHC (31.0-37.0) g/dL Neutrophils # (Manual) (1.3-7.7) k/uL Lymphocytes # (Manual) (1.0-4.8) k/uL Monocytes # (Manual) (0-1.0) k/uL Metamyelocytes # (Man) (0) k/uL Myelocytes # (Manual) (0) k/uL Macrocytosis APTT (22.0-30.0) sec ABG pH (7.35-7.45) ABG pCO2 (35-45) mmHg ABG pO2 (83-108) mmHg ABG HCO3 (21-25) mmol/L ABG Total CO2 (19-24) mmol/L ABG O2 Saturation (94-97) % Sodium 131 L (137-145) mmol/L Potassium (3.5-5.1) mmol/L Chloride 97 L (98-107) mmol/L Carbon Dioxide 16 L (22-30) mmol/L BUN 47 H (9-20) mg/dL Creatinine 5.27 H (0.66-1.25) mg/dL Glucose 504 H* (74-99) mg/dL POC Glucose (mg/dL) 582 H 537 H (70-110) mg/dL Calcium 7.3 L (8.4-10.2) mg/dL Alkaline Phosphatase (38-126) U/L Troponin I (0.000-0.034) ng/mL Total Protein (6.3-8.2) g/dL Albumin (3.5-5.0) g/dL Urine Protein (Negative) Urine Glucose (UA) (Negative) Urine Ketones (Negative) Urine Blood (Negative) 02/11/22 02/11/22 02/11/22 Range/Units 18:04 19:05 20:20 WBC (3.8-10.6) k/uL RBC (4.30-5.90) m/uL Hgb (13.0-17.5) gm/dL Hct (39.0-53.0) % MCV (80.0-100.0) fL MCHC (31.0-37.0) g/dL Neutrophils # (Manual) (1.3-7.7) k/uL Lymphocytes # (Manual) (1.0-4.8) k/uL Monocytes # (Manual) (0-1.0) k/uL Metamyelocytes # (Man) (0) k/uL Myelocytes # (Manual) (0) k/uL Macrocytosis APTT (22.0-30.0) sec ABG pH (7.35-7.45) ABG pCO2 (35-45) mmHg ABG pO2 (83-108) mmHg ABG HCO3 (21-25) mmol/L ABG Total CO2 (19-24) mmol/L ABG O2 Saturation (94-97) % Sodium (137-145) mmol/L Potassium (3.5-5.1) mmol/L Chloride (98-107) mmol/L Carbon Dioxide (22-30) mmol/L BUN (9-20) mg/dL Creatinine (0.66-1.25) mg/dL Glucose (74-99) mg/dL POC Glucose (mg/dL) 468 H 453 H 410 H (70-110) mg/dL Calcium (8.4-10.2) mg/dL Alkaline Phosphatase (38-126) U/L Troponin I (0.000-0.034) ng/mL Total Protein (6.3-8.2) g/dL Albumin (3.5-5.0) g/dL Urine Protein (Negative) Urine Glucose (UA) (Negative) Urine Ketones (Negative) Urine Blood (Negative) 02/11/22 02/11/22 02/11/22 Range/Units 21:10 21:45 22:04 WBC (3.8-10.6) k/uL RBC (4.30-5.90) m/uL Hgb (13.0-17.5) gm/dL Hct (39.0-53.0) % MCV (80.0-100.0) fL MCHC (31.0-37.0) g/dL Neutrophils # (Manual) (1.3-7.7) k/uL Lymphocytes # (Manual) (1.0-4.8) k/uL Monocytes # (Manual) (0-1.0) k/uL Metamyelocytes # (Man) (0) k/uL Myelocytes # (Manual) (0) k/uL Macrocytosis APTT (22.0-30.0) sec ABG pH (7.35-7.45) ABG pCO2 (35-45) mmHg ABG pO2 (83-108) mmHg ABG HCO3 (21-25) mmol/L ABG Total CO2 (19-24) mmol/L ABG O2 Saturation (94-97) % Sodium 133 L (137-145) mmol/L Potassium (3.5-5.1) mmol/L Chloride (98-107) mmol/L Carbon Dioxide (22-30) mmol/L BUN 49 H (9-20) mg/dL Creatinine 5.35 H (0.66-1.25) mg/dL Glucose 338 H (74-99) mg/dL POC Glucose (mg/dL) 369 H 327 H (70-110) mg/dL Calcium (8.4-10.2) mg/dL Alkaline Phosphatase (38-126) U/L Troponin I (0.000-0.034) ng/mL Total Protein (6.3-8.2) g/dL Albumin (3.5-5.0) g/dL Urine Protein (Negative) Urine Glucose (UA) (Negative) Urine Ketones (Negative) Urine Blood (Negative) 02/11/22 02/12/22 02/12/22 Range/Units 23:13 00:03 00:50 WBC (3.8-10.6) k/uL RBC (4.30-5.90) m/uL Hgb (13.0-17.5) gm/dL Hct (39.0-53.0) % MCV (80.0-100.0) fL MCHC (31.0-37.0) g/dL Neutrophils # (Manual) (1.3-7.7) k/uL Lymphocytes # (Manual) (1.0-4.8) k/uL Monocytes # (Manual) (0-1.0) k/uL Metamyelocytes # (Man) (0) k/uL Myelocytes # (Manual) (0) k/uL Macrocytosis APTT (22.0-30.0) sec ABG pH (7.35-7.45) ABG pCO2 (35-45) mmHg ABG pO2 (83-108) mmHg ABG HCO3 (21-25) mmol/L ABG Total CO2 (19-24) mmol/L ABG O2 Saturation (94-97) % Sodium 134 L (137-145) mmol/L Potassium (3.5-5.1) mmol/L Chloride (98-107) mmol/L Carbon Dioxide (22-30) mmol/L BUN 53 H (9-20) mg/dL Creatinine 5.60 H (0.66-1.25) mg/dL Glucose 251 H (74-99) mg/dL POC Glucose (mg/dL) 286 H 266 H (70-110) mg/dL Calcium (8.4-10.2) mg/dL Alkaline Phosphatase (38-126) U/L Troponin I (0.000-0.034) ng/mL Total Protein (6.3-8.2) g/dL Albumin (3.5-5.0) g/dL Urine Protein (Negative) Urine Glucose (UA) (Negative) Urine Ketones (Negative) Urine Blood (Negative) 02/12/22 02/12/22 02/12/22 Range/Units 01:18 02:03 02:56 WBC (3.8-10.6) k/uL RBC (4.30-5.90) m/uL Hgb (13.0-17.5) gm/dL Hct (39.0-53.0) % MCV (80.0-100.0) fL MCHC (31.0-37.0) g/dL Neutrophils # (Manual) (1.3-7.7) k/uL Lymphocytes # (Manual) (1.0-4.8) k/uL Monocytes # (Manual) (0-1.0) k/uL Metamyelocytes # (Man) (0) k/uL Myelocytes # (Manual) (0) k/uL Macrocytosis APTT (22.0-30.0) sec ABG pH (7.35-7.45) ABG pCO2 (35-45) mmHg ABG pO2 (83-108) mmHg ABG HCO3 (21-25) mmol/L ABG Total CO2 (19-24) mmol/L ABG O2 Saturation (94-97) % Sodium (137-145) mmol/L Potassium (3.5-5.1) mmol/L Chloride (98-107) mmol/L Carbon Dioxide (22-30) mmol/L BUN (9-20) mg/dL Creatinine (0.66-1.25) mg/dL Glucose (74-99) mg/dL POC Glucose (mg/dL) 227 H 209 H 182 H (70-110) mg/dL Calcium (8.4-10.2) mg/dL Alkaline Phosphatase (38-126) U/L Troponin I (0.000-0.034) ng/mL Total Protein (6.3-8.2) g/dL Albumin (3.5-5.0) g/dL Urine Protein (Negative) Urine Glucose (UA) (Negative) Urine Ketones (Negative) Urine Blood (Negative) 02/12/22 02/12/22 02/12/22 Range/Units 04:00 04:30 04:30 WBC 15.6 H (3.8-10.6) k/uL RBC 3.17 L (4.30-5.90) m/uL Hgb 9.3 L D (13.0-17.5) gm/dL Hct 26.6 L (39.0-53.0) % MCV (80.0-100.0) fL MCHC (31.0-37.0) g/dL Neutrophils # (Manual) (1.3-7.7) k/uL Lymphocytes # (Manual) (1.0-4.8) k/uL Monocytes # (Manual) (0-1.0) k/uL Metamyelocytes # (Man) (0) k/uL Myelocytes # (Manual) (0) k/uL Macrocytosis APTT (22.0-30.0) sec ABG pH (7.35-7.45) ABG pCO2 (35-45) mmHg ABG pO2 (83-108) mmHg ABG HCO3 (21-25) mmol/L ABG Total CO2 (19-24) mmol/L ABG O2 Saturation (94-97) % Sodium 134 L (137-145) mmol/L Potassium (3.5-5.1) mmol/L Chloride (98-107) mmol/L Carbon Dioxide (22-30) mmol/L BUN 50 H (9-20) mg/dL Creatinine 5.78 H (0.66-1.25) mg/dL Glucose 117 H (74-99) mg/dL POC Glucose (mg/dL) 159 H (70-110) mg/dL Calcium 7.2 L (8.4-10.2) mg/dL Alkaline Phosphatase (38-126) U/L Troponin I (0.000-0.034) ng/mL Total Protein (6.3-8.2) g/dL Albumin (3.5-5.0) g/dL Urine Protein (Negative) Urine Glucose (UA) (Negative) Urine Ketones (Negative) Urine Blood (Negative) 02/12/22 02/12/22 Range/Units 05:16 05:50 WBC (3.8-10.6) k/uL RBC (4.30-5.90) m/uL Hgb (13.0-17.5) gm/dL Hct (39.0-53.0) % MCV (80.0-100.0) fL MCHC (31.0-37.0) g/dL Neutrophils # (Manual) (1.3-7.7) k/uL Lymphocytes # (Manual) (1.0-4.8) k/uL Monocytes # (Manual) (0-1.0) k/uL Metamyelocytes # (Man) (0) k/uL Myelocytes # (Manual) (0) k/uL Macrocytosis APTT (22.0-30.0) sec ABG pH (7.35-7.45) ABG pCO2 (35-45) mmHg ABG pO2 203 H (83-108) mmHg ABG HCO3 27 H (21-25) mmol/L ABG Total CO2 29 H (19-24) mmol/L ABG O2 Saturation 100.0 H (94-97) % Sodium (137-145) mmol/L Potassium (3.5-5.1) mmol/L Chloride (98-107) mmol/L Carbon Dioxide (22-30) mmol/L BUN (9-20) mg/dL Creatinine (0.66-1.25) mg/dL Glucose (74-99) mg/dL POC Glucose (mg/dL) 113 H (70-110) mg/dL Calcium (8.4-10.2) mg/dL Alkaline Phosphatase (38-126) U/L Troponin I (0.000-0.034) ng/mL Total Protein (6.3-8.2) g/dL Albumin (3.5-5.0) g/dL Urine Protein (Negative) Urine Glucose (UA) (Negative) Urine Ketones (Negative) Urine Blood (Negative) Assessment and Plan Assessment: Syncope related to DKA and metabolic acidosis Elevated troponin related to acute on chronic renal failure Acute hypoxic respiratory failure secondary to acute DKA and metabolic acidosis End-stage renal disease on hemodialysis DKA maintain on insulin drip and IV fluids Hyperkalemia secondary to acute on chronic kidney disease Metabolic acidosis secondary to DKA Plan: Continue to hold current cardiac medications and monitor blood pressure 2-D echocardiogram obtained and reviewed Continue telemetry monitoring Continue with accurate I's and O's Further recommendations based on clinical course The above impression and plan of care have been discussed and directed by the signing physician. Lata Shea, nurse practitioner, acting as scribe for signing physician.
--- NOTE | 2022-02-12 09:24 | CA ---
Transthoracic Echo Report Name: Wilson Seymour Age: 51 Gender: M : 1970 Exam Date: 02/11/2022 14:52 Exam Location: [facility] Ht (in): 73 Wt (lb): 210 Ordering Physician: Lata Shea Attending/Referring Phys: Product Marketing Intern Maura Deluna RDCS Procedure CPT: Indications: postive trop Cardiac Hx: Technical Quality: Fair Contrast 1: Total Dose (mL): Contrast 2: Total Dose (mL): MEASUREMENTS (Male / Female) Normal Values 2D ECHO LV Diastolic Diameter PLAX 3.8 cm 4.2 - 5.9 / 3.9 - 5.3 cm LV Systolic Diameter PLAX 1.9 cm IVS Diastolic Thickness 1.9 cm 0.6 - 1.0 / 0.6 - 0.9 cm LVPW Diastolic Thickness 1.8 cm 0.6 - 1.0 / 0.6 - 0.9 cm LV Relative Wall Thickness 1.0 RV Internal Dim ED PLAX 3.0 cm LA Volume 54.7 cm??? 18 - 58 / 22 - 52 cm??? M-MODE Aortic Root Diameter MM 3.3 cm LA Systolic Diameter MM 3.1 cm LA Ao Ratio MM 0.9 AV Cusp Separation MM 1.7 cm DOPPLER AV Peak Velocity 181.0 cm/s AV Peak Gradient 13.1 mmHg LVOT Peak Velocity 133.5 cm/s LVOT Peak Gradient 7.1 mmHg MV Area PHT 2.5 cm??? Mitral E Point Velocity 70.2 cm/s Mitral A Point Velocity 59.4 cm/s Mitral E to A Ratio 1.2 MV Deceleration Time 300.3 ms MV E' Velocity 6.4 cm/s Mitral E to MV E' Ratio 10.9 TR Peak Velocity 259.6 cm/s TR Peak Gradient 27.0 mmHg Right Ventricular Systolic Press 32.0 mmHg FINDINGS Left Ventricle Severely increased left ventricular wall thickness. Normal left ventricular systolic function with no obvious regional wall motion abnormalities. Left ventricular ejection fraction is estimated at 55-60 %. Right Ventricle Normal right ventricular size and function. Right ventricular systolic pressure within normal limits. Right Atrium Normal right atrial size. Left Atrium Normal left atrial size. Mitral Valve Structurally normal mitral valve. No mitral stenosis, regurgitation or prolapse. Aortic Valve No aortic valve stenosis or regurgitation. Tricuspid Valve Structurally normal tricuspid valve. Mild tricuspid regurgitation. Pulmonic Valve Trace pulmonic regurgitation. Pericardium No pericardial effusion. Aorta Normal size aortic root and proximal ascending aorta. CONCLUSIONS Normal left ventricular dimension and systolic function Previewed by: Dr. Nimesh Ortega MD (Electronically Signed) Final Date: 12 February 2022 09:23
--- NOTE | 2022-02-12 10:41 | P.GSCN ---
History of Present Illness Consult date: 02/12/22 Reason for Consult: Goals of care Requesting physician: Cristi Mary History of present illness: This is a 51-year-old white male with history of end-stage renal disease, on hemodialysis, type 2 diabetes, and hypertension. He was brought in this o 02/11/22 with altered mental status. Patient was found unresponsive on the floor at home. Unknown how long the patient has been down. Patient was brought into the ER, and apparently required immediate intubation and mechanical ventilation. It is not clear whether the patient has been compliant with his hemodialysis, nonetheless he was found to have an elevated potassium of 9.7 elevated blood sugar of 1331 and elevated creatinine of 11 with BUN of 82. The patient was received hemodialysisin the ER. He was also hypotensive and placed on norepinephrine. Drug screen was negative, CT of the brain showed no evidence of acute intracranial process, CXR showed mild pulmonary vascular congestion otherwise unremarkable Review of Systems ROS unobtainable: due to endotracheal tube Past Medical History Past Medical History: Diabetes Mellitus, GERD/Reflux, Renal Disease Additional Past Medical History / Comment(s): IDDM type II, diabetic neuropathy bilateral feet, DKA, ESRD on HD, past perianal abscess/fistula with surgery, BPH/urinary retention with surgery, UTI. self cath four times a day, dialysis Tues/thur/sat History of Any Multi-Drug Resistant Organisms: None Reported Past Surgical History: No Surgical Hx Reported Additional Past Surgical History / Comment(s): 08/2014 cystoscopy with TURP, rectal exam/I&D/fistulotomy. I&D back Past Anesthesia/Blood Transfusion Reactions: No Reported Reaction Smoking Status: Current every day smoker - Past Family History Mother Family Medical History: Diabetes Mellitus Additional Family Medical History / Comment(s): mother is Father Family Medical History: No Reported History Additional Family Medical History / Comment(s): Father is healthy. Medications and Allergies Home Medications Medication Instructions Recorded Confirmed Type Insulin Aspart [NovoLOG Flexpen] See Protocol SQ AC-TID 07/09/19 02/11/22 History Insulin Degludec [Tresiba 70 units SQ HS 03/18/21 02/11/22 History Flextouch U-200 Pen] lisinopriL [Zestril] 40 mg PO HS 03/18/21 02/11/22 History Lansoprazole 30 mg PO DAILY 04/07/21 02/11/22 History Ondansetron [Zofran] 4 mg PO Q6H PRN 11/28/21 02/11/22 History Hyoscyamine Sulfate [Levbid] 0.375 mg PO Q12HR PRN 01/26/22 02/11/22 History Prochlorperazine [Compazine] 10 mg PO TID 01/26/22 02/11/22 History hydrALAZINE HCL [Apresoline] 100 mg PO TID 01/26/22 02/11/22 History Ergocalciferol [Vitamin D2 (1250 1,250 mcg PO Q7D 02/01/22 02/11/22 History Mcg = 99203 Iu)] Sertraline HCl [Zoloft] 25 mg PO DAILY 02/01/22 02/11/22 History carvediloL [Coreg] 6.25 mg PO BID 02/01/22 02/11/22 History Allergies Allergy/AdvReac Type Severity Reaction Status Date / Time No Known Allergies Allergy Verified 02/11/22 10:22 Surgical - Exam Vital Signs Pulse Resp BP Pulse Ox 156 H 24 111/44 100 02/11/22 07:21 02/11/22 07:21 02/11/22 07:21 02/11/22 07:21 General: Well developed, well nourished. Appears older than stated age HEENT: Head is atraumatic, normocephalic. Pupils equal, round and reactive to light bilaterally. Mucus membranes moist.ET tube present CV: Heart regular in rate and rhythm positive S1 and S2. No clicks, rubs or murmurs. Peripheral pulses equal. 2/4 Lungs: Clear to auscultation bilaterally. No wheezes rales or rhonchi. Respirations even and nonlabored. On mechanical ventilator. Abdomen/GI: Soft. Bowel sounds present in all 4 quadrants.No guarding, rigidity, or abdominal tenderness. : Sanchez catheter draining clear yellow urine Musculoskeletal/ Extremities: RIVAS, no joint deformity or swelling. No gross atrophy. Vascular: Radial pulses equal. 2/4. +1 peripheral edema Skin: Warm and dry, No rash or lesions.Bronze b/L LE Neurologic: Asleep, attempts to open eye with sternal rub. Unable to follow commands. Results - Labs 02/12/22 04:30 02/12/22 04:30 Abnormal Lab Results - Last 24 Hours (Table) 02/11/22 02/11/22 02/11/22 Range/Units 10:27 11:54 12:58 WBC (3.8-10.6) k/uL RBC (4.30-5.90) m/uL Hgb (13.0-17.5) gm/dL Hct (39.0-53.0) % ABG pO2 (83-108) mmHg ABG HCO3 (21-25) mmol/L ABG Total CO2 (19-24) mmol/L ABG O2 Saturation (94-97) % Sodium (137-145) mmol/L Chloride (98-107) mmol/L Carbon Dioxide (22-30) mmol/L BUN (9-20) mg/dL Creatinine (0.66-1.25) mg/dL Glucose (74-99) mg/dL POC Glucose (mg/dL) >600 H >600 H 567 H (70-110) mg/dL Calcium (8.4-10.2) mg/dL 02/11/22 02/11/22 02/11/22 Range/Units 14:16 15:14 16:17 WBC (3.8-10.6) k/uL RBC (4.30-5.90) m/uL Hgb (13.0-17.5) gm/dL Hct (39.0-53.0) % ABG pO2 (83-108) mmHg ABG HCO3 (21-25) mmol/L ABG Total CO2 (19-24) mmol/L ABG O2 Saturation (94-97) % Sodium (137-145) mmol/L Chloride (98-107) mmol/L Carbon Dioxide (22-30) mmol/L BUN (9-20) mg/dL Creatinine (0.66-1.25) mg/dL Glucose (74-99) mg/dL POC Glucose (mg/dL) >600 H 582 H 537 H (70-110) mg/dL Calcium (8.4-10.2) mg/dL 02/11/22 02/11/22 02/11/22 Range/Units 17:11 18:04 19:05 WBC (3.8-10.6) k/uL RBC (4.30-5.90) m/uL Hgb (13.0-17.5) gm/dL Hct (39.0-53.0) % ABG pO2 (83-108) mmHg ABG HCO3 (21-25) mmol/L ABG Total CO2 (19-24) mmol/L ABG O2 Saturation (94-97) % Sodium 131 L (137-145) mmol/L Chloride 97 L (98-107) mmol/L Carbon Dioxide 16 L (22-30) mmol/L BUN 47 H (9-20) mg/dL Creatinine 5.27 H (0.66-1.25) mg/dL Glucose 504 H* (74-99) mg/dL POC Glucose (mg/dL) 468 H 453 H (70-110) mg/dL Calcium 7.3 L (8.4-10.2) mg/dL 02/11/22 02/11/22 02/11/22 Range/Units 20:20 21:10 21:45 WBC (3.8-10.6) k/uL RBC (4.30-5.90) m/uL Hgb (13.0-17.5) gm/dL Hct (39.0-53.0) % ABG pO2 (83-108) mmHg ABG HCO3 (21-25) mmol/L ABG Total CO2 (19-24) mmol/L ABG O2 Saturation (94-97) % Sodium 133 L (137-145) mmol/L Chloride (98-107) mmol/L Carbon Dioxide (22-30) mmol/L BUN 49 H (9-20) mg/dL Creatinine 5.35 H (0.66-1.25) mg/dL Glucose 338 H (74-99) mg/dL POC Glucose (mg/dL) 410 H 369 H (70-110) mg/dL Calcium (8.4-10.2) mg/dL 02/11/22 02/11/22 02/12/22 Range/Units 22:04 23:13 00:03 WBC (3.8-10.6) k/uL RBC (4.30-5.90) m/uL Hgb (13.0-17.5) gm/dL Hct (39.0-53.0) % ABG pO2 (83-108) mmHg ABG HCO3 (21-25) mmol/L ABG Total CO2 (19-24) mmol/L ABG O2 Saturation (94-97) % Sodium (137-145) mmol/L Chloride (98-107) mmol/L Carbon Dioxide (22-30) mmol/L BUN (9-20) mg/dL Creatinine (0.66-1.25) mg/dL Glucose (74-99) mg/dL POC Glucose (mg/dL) 327 H 286 H 266 H (70-110) mg/dL Calcium (8.4-10.2) mg/dL 02/12/22 02/12/22 02/12/22 Range/Units 00:50 01:18 02:03 WBC (3.8-10.6) k/uL RBC (4.30-5.90) m/uL Hgb (13.0-17.5) gm/dL Hct (39.0-53.0) % ABG pO2 (83-108) mmHg ABG HCO3 (21-25) mmol/L ABG Total CO2 (19-24) mmol/L ABG O2 Saturation (94-97) % Sodium 134 L (137-145) mmol/L Chloride (98-107) mmol/L Carbon Dioxide (22-30) mmol/L BUN 53 H (9-20) mg/dL Creatinine 5.60 H (0.66-1.25) mg/dL Glucose 251 H (74-99) mg/dL POC Glucose (mg/dL) 227 H 209 H (70-110) mg/dL Calcium (8.4-10.2) mg/dL 02/12/22 02/12/22 02/12/22 Range/Units 02:56 04:00 04:30 WBC 15.6 H (3.8-10.6) k/uL RBC 3.17 L (4.30-5.90) m/uL Hgb 9.3 L D (13.0-17.5) gm/dL Hct 26.6 L (39.0-53.0) % ABG pO2 (83-108) mmHg ABG HCO3 (21-25) mmol/L ABG Total CO2 (19-24) mmol/L ABG O2 Saturation (94-97) % Sodium (137-145) mmol/L Chloride (98-107) mmol/L Carbon Dioxide (22-30) mmol/L BUN (9-20) mg/dL Creatinine (0.66-1.25) mg/dL Glucose (74-99) mg/dL POC Glucose (mg/dL) 182 H 159 H (70-110) mg/dL Calcium (8.4-10.2) mg/dL 02/12/22 02/12/22 02/12/22 Range/Units 04:30 05:16 05:50 WBC (3.8-10.6) k/uL RBC (4.30-5.90) m/uL Hgb (13.0-17.5) gm/dL Hct (39.0-53.0) % ABG pO2 203 H (83-108) mmHg ABG HCO3 27 H (21-25) mmol/L ABG Total CO2 29 H (19-24) mmol/L ABG O2 Saturation 100.0 H (94-97) % Sodium 134 L (137-145) mmol/L Chloride (98-107) mmol/L Carbon Dioxide (22-30) mmol/L BUN 50 H (9-20) mg/dL Creatinine 5.78 H (0.66-1.25) mg/dL Glucose 117 H (74-99) mg/dL POC Glucose (mg/dL) 113 H (70-110) mg/dL Calcium 7.2 L (8.4-10.2) mg/dL 02/12/22 Range/Units 08:11 WBC (3.8-10.6) k/uL RBC (4.30-5.90) m/uL Hgb (13.0-17.5) gm/dL Hct (39.0-53.0) % ABG pO2 (83-108) mmHg ABG HCO3 (21-25) mmol/L ABG Total CO2 (19-24) mmol/L ABG O2 Saturation (94-97) % Sodium (137-145) mmol/L Chloride (98-107) mmol/L Carbon Dioxide (22-30) mmol/L BUN (9-20) mg/dL Creatinine (0.66-1.25) mg/dL Glucose (74-99) mg/dL POC Glucose (mg/dL) 119 H (70-110) mg/dL Calcium (8.4-10.2) mg/dL Diabetes panel 02/11/22 02/11/22 02/12/22 Range/Units 17:11 21:45 00:50 Sodium 131 L 133 L 134 L (137-145) mmol/L Potassium 4.3 4.0 4.7 (3.5-5.1) mmol/L Chloride 97 L 98 101 (98-107) mmol/L Carbon Dioxide 16 L 22 23 (22-30) mmol/L BUN 47 H 49 H 53 H (9-20) mg/dL Creatinine 5.27 H 5.35 H 5.60 H (0.66-1.25) mg/dL Glucose 504 H* 338 H 251 H (74-99) mg/dL Calcium 7.3 L (8.4-10.2) mg/dL 02/12/22 Range/Units 04:30 Sodium 134 L (137-145) mmol/L Potassium 3.5 (3.5-5.1) mmol/L Chloride 99 (98-107) mmol/L Carbon Dioxide 25 (22-30) mmol/L BUN 50 H (9-20) mg/dL Creatinine 5.78 H (0.66-1.25) mg/dL Glucose 117 H (74-99) mg/dL Calcium 7.2 L (8.4-10.2) mg/dL Calcium panel 02/11/22 02/11/22 02/12/22 Range/Units 17:11 21:45 00:50 Calcium 7.3 L (8.4-10.2) mg/dL Phosphorus 4.0 4.4 (2.5-4.5) mg/dL 02/12/22 Range/Units 04:30 Calcium 7.2 L (8.4-10.2) mg/dL Phosphorus 4.2 (2.5-4.5) mg/dL Pituitary panel 02/11/22 02/11/22 02/12/22 Range/Units 17:11 21:45 00:50 Sodium 131 L 133 L 134 L (137-145) mmol/L Potassium 4.3 4.0 4.7 (3.5-5.1) mmol/L Chloride 97 L 98 101 (98-107) mmol/L Carbon Dioxide 16 L 22 23 (22-30) mmol/L BUN 47 H 49 H 53 H (9-20) mg/dL Creatinine 5.27 H 5.35 H 5.60 H (0.66-1.25) mg/dL Glucose 504 H* 338 H 251 H (74-99) mg/dL Calcium 7.3 L (8.4-10.2) mg/dL 02/12/22 Range/Units 04:30 Sodium 134 L (137-145) mmol/L Potassium 3.5 (3.5-5.1) mmol/L Chloride 99 (98-107) mmol/L Carbon Dioxide 25 (22-30) mmol/L BUN 50 H (9-20) mg/dL Creatinine 5.78 H (0.66-1.25) mg/dL Glucose 117 H (74-99) mg/dL Calcium 7.2 L (8.4-10.2) mg/dL Adrenal panel 02/11/22 02/11/22 02/12/22 Range/Units 17:11 21:45 00:50 Sodium 131 L 133 L 134 L (137-145) mmol/L Potassium 4.3 4.0 4.7 (3.5-5.1) mmol/L Chloride 97 L 98 101 (98-107) mmol/L Carbon Dioxide 16 L 22 23 (22-30) mmol/L BUN 47 H 49 H 53 H (9-20) mg/dL Creatinine 5.27 H 5.35 H 5.60 H (0.66-1.25) mg/dL Glucose 504 H* 338 H 251 H (74-99) mg/dL Calcium 7.3 L (8.4-10.2) mg/dL 02/12/22 Range/Units 04:30 Sodium 134 L (137-145) mmol/L Potassium 3.5 (3.5-5.1) mmol/L Chloride 99 (98-107) mmol/L Carbon Dioxide 25 (22-30) mmol/L BUN 50 H (9-20) mg/dL Creatinine 5.78 H (0.66-1.25) mg/dL Glucose 117 H (74-99) mg/dL Calcium 7.2 L (8.4-10.2) mg/dL - Imaging Chest x-ray: report reviewed EKG: report reviewed Additional studies: Head CT Assessment and Plan Assessment: Symptoms * Pain -CPOT 0 * Fatigue - Lethargic * SOB - On ventilator, continue DUoneb * Insomnia - Lethargic * N/V - None * Anxiety - No, continue Ativan prn * Depression - CRISELDA * Confusion - CRISELDA * Agitation - No * Hallucinations - CRISELDA * Appetite/weight loss - NPO * Dysphagia - CRISELDA * Constipation - LBM 02/12 * Incontinence - Sanchez * Itch - CRISELDA Plan: Summary/Goals - The patient is resting in bed and appears comfortable. Per the RN, the patient has been off of sedation for a couple hours. He was able to barely open his eyes with a sternal rub. He was unable to follow commands. He is no longer requiring pressors. The plan is to try a SBT, if the patient wakes up enough, and possible extubate. He will receive HD again today. There were no visitors present. Attempted to call the patient's father. No answer, left voicemail. Unable to assess goals of care at this time. Recommendations - Assess patient and his goals of care once alert and extubated. Advanced Directives - None on file Code Status - DNR Thank you for this consult Alicia Judge [facility]- Palliative Care [facility] [id number] Email: [email or web address] Time with Patient: Greater than 30
[2022-02-12] MEDS ORDERED: MORPHINE SULFATE (100 MG/2 ML) 100 MG in SODIUM CHLORIDE 0.9% 100 ML IV SCH (11:45)
[2022-02-12] MEDS ORDERED: MORPHINE SULFATE 4 MG/ML SYRINGE IV PRN (11:45)
[2022-02-12] MEDS ORDERED: MORPHINE SULFATE 10 MG/ML 1ML VIAL IVP ONE (11:45)
[2022-02-12] MEDS ORDERED: SCOPOLAMINE 1 MG/72 HR PATCH TRANSDERM SCH (11:45)
[2022-02-12] MEDS ORDERED: ATROPINE OPHTH SOLN 1% 5ML BTL SUBLINGUAL PRN (11:45)
--- NOTE | 2022-02-12 12:00 | P.PN ---
Subjective Progress Note Date: 02/12/22 Principal diagnosis: Acute hypoxic respiratory failure secondary to acute DKA and end-stage renal disease This is a 51-year-old white male with history of end-stage renal disease, on hemodialysis, type 2 diabetes, hypertension, patient is normally on hemodialysis. He was brought in this morning with altered mental status. Patient was found unresponsive on the floor at home. Unknown how long the patient has been down. Patient was brought into the ER, and apparently required immediate intubation and mechanical ventilation. It is not clear whether the patient has been compliant with his hemodialysis, nonetheless he was found to have an elevated potassium of 9.7 elevated blood sugar of 1331 and elevated creatinine of 11 with BUN of 82. I saw the patient in the ER, and the patient was receiving hemodialysis. He is on assist control rate of 16, volume 500 FiO2 50% and PEEP of 5 and on propofol at 50 mcg/kg/m is also on insulin at 9.16 units per hour refeeding bicarb drip at 50 mL per hour. And he is also on norepinephrine at 0.15 mcg/kg/m. Patient was seen by nephrology earlier, and recommended immediate hemodialysis. Patient was hypotensive upon arrival and a central line was placed by the ER physician in the left groin, he already has a dialysis catheter in place and being used for hemodialysis. ABG immediately post intubation showed a pO2 of 400 pCO2 33 pH of 6.80 patient was found to have abnormal labs as noted above. Drug screen was negative CT of the brain showed no evidence of acute intracranial process mild pulmonary vascular congestion oth erwise unremarkable Reevaluated today on 02/12/22, patient is intubated, mechanically ventilated, he is on assist control rate of 16, 500 FiO2 40% and PEEP of 5. ABG showed a pO2 of 203 pCO2 42 pH of 7.43. Patient is off most of the drips including off bicarb off levo fed, off insulin drip, and he is only on propofol at 50 mcg/kg/m. After reviewing the ABG, recommending FiO2 down to 30%. Patient is still on arousable, however I recommended stopping the propofol, and I'm planning to hopefully extubate the patient today. Found out later that the patient has been DO NOT RESUSCITATE, and in reality never wanted to be intubated and mechanically ventilated. Shortly after I left the ICU, I was told by the nurse that his father came in and apparently once the son to go to comfort care measures. The son according to the father never wanted any of this to be done, and that's why he was noncompliant with all his medications and hemodialysis. Knowing this, I will respect the family's wishes and supposedly the patient's own wishes, I would proceed to extubation and comfort care measures. Objective - Vital Signs Vital signs: Vital Signs Temp 98.2 F 02/12/22 08:00 Pulse 94 02/12/22 11:30 Resp 16 02/12/22 08:30 BP 119/66 02/12/22 08:30 Pulse Ox 100 02/12/22 08:30 FiO2 30 02/12/22 11:12 Intake & Output 02/11/22 02/12/22 02/12/22 18:59 06:59 18:59 Intake Total 1966.693 3901.695 224.329 Output Total 140 205 5 Balance 4202.665 7734.695 219.329 Weight 90.718 kg 86.4 kg 86 kg Intake: IV 1000 2400 100 D5-0.45% NaCl with KCl 1050 20Meq/l 1,000 ml @ 150 mls/hr IV .Q6H40M [facility] Rx# :[id number] D5-0.45% NaCl with KCl 50 20Meq/l 1,000 ml @ 50 mls /hr IV .Q20H [facility] Rx#: [id number] Dextrose 5% in Water 1, 250 600 50 000 ml @ 50 mls/hr IV . Q23H [facility] with Sodium Bicarb (1 Meq/ml) 150 ml Rx#:[id number] Sodium Chloride 0.9% 1, 750 750 000 ml @ 150 mls/hr IV . Q6H40M [facility] Rx#:[id number] Intake, IV Titration 41.624 494.695 124.329 Amount Insulin Regular 100 unit 191.592 In Sodium Chloride 0.9% 100 ml @ 0.1 UNITS/KG/HR 9.163 mls/hr IV .Q11H2M [facility] Rx#:[id number] Norepinephrine 32 mg In 36.861 7.866 23.634 Sodium Chloride 0.9% 218 ml @ 0.03 MCG/KG/MIN 1. 276 mls/hr IV .Q24H [facility] Rx#:[id number] propofoL 1,000 mg In 4.763 295.237 100.695 Empty Bag 1 bag @ 15 MCG/ KG/MIN 8.165 mls/hr IV . [id number] [facility] Rx#:[id number] Hemodialysis 400 Output: Gastric Drainage 150 Urine 140 55 5 Other: Voiding Method Indwelling Catheter Indwelling Catheter # Bowel Movements 1 - Exam Physical Exam: Revealed a 51-year-old white male intubated and mechanically ventilated, sedated, on propofol. Head: Atraumatic, normocephalic. HEENT:[Neck is supple.] [No neck masses.] [No thyromegaly.] [No JVD.] PERRLA, EOMI, anicteric, no neck masses, slight JVD noted Chest: [Symmetrical chest expansion , clear throughout no crackles or rhonchi or wheezes Cardiac Exam: [Normal S1 and S2, no S3 gallop, 2/6 systolic murmur thought the precordium. Abdomen: [Soft, nontender, no megaly, no rebound, no guarding, normal bowel sounds.] Extremities: [No clubbing, no edema, no cyanosis.] Neurological Exam: Cannot assess, patient is intubated and sedated on propofol. Psychiatric: Could not assess. Skin: No rashes. - Labs CBC & Chem 7: 02/12/22 04:30 02/12/22 04:30 Labs: Abnormal Lab Results - Last 24 Hours (Table) 02/11/22 02/11/22 02/11/22 Range/Units 11:54 12:58 14:16 WBC (3.8-10.6) k/uL RBC (4.30-5.90) m/uL Hgb (13.0-17.5) gm/dL Hct (39.0-53.0) % ABG pO2 (83-108) mmHg ABG HCO3 (21-25) mmol/L ABG Total CO2 (19-24) mmol/L ABG O2 Saturation (94-97) % Sodium (137-145) mmol/L Chloride (98-107) mmol/L Carbon Dioxide (22-30) mmol/L BUN (9-20) mg/dL Creatinine (0.66-1.25) mg/dL Glucose (74-99) mg/dL POC Glucose (mg/dL) >600 H 567 H >600 H (70-110) mg/dL Calcium (8.4-10.2) mg/dL 02/11/22 02/11/22 02/11/22 Range/Units 15:14 16:17 17:11 WBC (3.8-10.6) k/uL RBC (4.30-5.90) m/uL Hgb (13.0-17.5) gm/dL Hct (39.0-53.0) % ABG pO2 (83-108) mmHg ABG HCO3 (21-25) mmol/L ABG Total CO2 (19-24) mmol/L ABG O2 Saturation (94-97) % Sodium 131 L (137-145) mmol/L Chloride 97 L (98-107) mmol/L Carbon Dioxide 16 L (22-30) mmol/L BUN 47 H (9-20) mg/dL Creatinine 5.27 H (0.66-1.25) mg/dL Glucose 504 H* (74-99) mg/dL POC Glucose (mg/dL) 582 H 537 H (70-110) mg/dL Calcium 7.3 L (8.4-10.2) mg/dL 02/11/22 02/11/22 02/11/22 Range/Units 18:04 19:05 20:20 WBC (3.8-10.6) k/uL RBC (4.30-5.90) m/uL Hgb (13.0-17.5) gm/dL Hct (39.0-53.0) % ABG pO2 (83-108) mmHg ABG HCO3 (21-25) mmol/L ABG Total CO2 (19-24) mmol/L ABG O2 Saturation (94-97) % Sodium (137-145) mmol/L Chloride (98-107) mmol/L Carbon Dioxide (22-30) mmol/L BUN (9-20) mg/dL Creatinine (0.66-1.25) mg/dL Glucose (74-99) mg/dL POC Glucose (mg/dL) 468 H 453 H 410 H (70-110) mg/dL Calcium (8.4-10.2) mg/dL 02/11/22 02/11/22 02/11/22 Range/Units 21:10 21:45 22:04 WBC (3.8-10.6) k/uL RBC (4.30-5.90) m/uL Hgb (13.0-17.5) gm/dL Hct (39.0-53.0) % ABG pO2 (83-108) mmHg ABG HCO3 (21-25) mmol/L ABG Total CO2 (19-24) mmol/L ABG O2 Saturation (94-97) % Sodium 133 L (137-145) mmol/L Chloride (98-107) mmol/L Carbon Dioxide (22-30) mmol/L BUN 49 H (9-20) mg/dL Creatinine 5.35 H (0.66-1.25) mg/dL Glucose 338 H (74-99) mg/dL POC Glucose (mg/dL) 369 H 327 H (70-110) mg/dL Calcium (8.4-10.2) mg/dL 02/11/22 02/12/22 02/12/22 Range/Units 23:13 00:03 00:50 WBC (3.8-10.6) k/uL RBC (4.30-5.90) m/uL Hgb (13.0-17.5) gm/dL Hct (39.0-53.0) % ABG pO2 (83-108) mmHg ABG HCO3 (21-25) mmol/L ABG Total CO2 (19-24) mmol/L ABG O2 Saturation (94-97) % Sodium 134 L (137-145) mmol/L Chloride (98-107) mmol/L Carbon Dioxide (22-30) mmol/L BUN 53 H (9-20) mg/dL Creatinine 5.60 H (0.66-1.25) mg/dL Glucose 251 H (74-99) mg/dL POC Glucose (mg/dL) 286 H 266 H (70-110) mg/dL Calcium (8.4-10.2) mg/dL 02/12/22 02/12/22 02/12/22 Range/Units 01:18 02:03 02:56 WBC (3.8-10.6) k/uL RBC (4.30-5.90) m/uL Hgb (13.0-17.5) gm/dL Hct (39.0-53.0) % ABG pO2 (83-108) mmHg ABG HCO3 (21-25) mmol/L ABG Total CO2 (19-24) mmol/L ABG O2 Saturation (94-97) % Sodium (137-145) mmol/L Chloride (98-107) mmol/L Carbon Dioxide (22-30) mmol/L BUN (9-20) mg/dL Creatinine (0.66-1.25) mg/dL Glucose (74-99) mg/dL POC Glucose (mg/dL) 227 H 209 H 182 H (70-110) mg/dL Calcium (8.4-10.2) mg/dL 02/12/22 02/12/22 02/12/22 Range/Units 04:00 04:30 04:30 WBC 15.6 H (3.8-10.6) k/uL RBC 3.17 L (4.30-5.90) m/uL Hgb 9.3 L D (13.0-17.5) gm/dL Hct 26.6 L (39.0-53.0) % ABG pO2 (83-108) mmHg ABG HCO3 (21-25) mmol/L ABG Total CO2 (19-24) mmol/L ABG O2 Saturation (94-97) % Sodium 134 L (137-145) mmol/L Chloride (98-107) mmol/L Carbon Dioxide (22-30) mmol/L BUN 50 H (9-20) mg/dL Creatinine 5.78 H (0.66-1.25) mg/dL Glucose 117 H (74-99) mg/dL POC Glucose (mg/dL) 159 H (70-110) mg/dL Calcium 7.2 L (8.4-10.2) mg/dL 02/12/22 02/12/22 02/12/22 Range/Units 05:16 05:50 08:11 WBC (3.8-10.6) k/uL RBC (4.30-5.90) m/uL Hgb (13.0-17.5) gm/dL Hct (39.0-53.0) % ABG pO2 203 H (83-108) mmHg ABG HCO3 27 H (21-25) mmol/L ABG Total CO2 29 H (19-24) mmol/L ABG O2 Saturation 100.0 H (94-97) % Sodium (137-145) mmol/L Chloride (98-107) mmol/L Carbon Dioxide (22-30) mmol/L BUN (9-20) mg/dL Creatinine (0.66-1.25) mg/dL Glucose (74-99) mg/dL POC Glucose (mg/dL) 113 H 119 H (70-110) mg/dL Calcium (8.4-10.2) mg/dL Assessment and Plan Assessment: Impression: Acute hypoxic respiratory failure secondary to acute DKA and severe anion gap me tabolic acidosis Acute hyperkalemia, being treated per nephrology and the patient is receiving hemodialysis Pseudohyponatremia secondary to hyperglycemia Altered mental status/metabolic encephalopathy secondary to DKA Severe dehydration. End-stage renal disease, on hemodialysis Benign essential hypertension History of benign prostatic hypertrophy and obstructive uropathy History of perianal fistula requiring drainage History of melanoma. Recommendation: Discontinue propofol Nephrology is following for hemodialysis Off insulin drip Off bicarb drip GI and DVT prophylaxis I was considering weaning off mechanical ventilation, however after rounding on this patient and making all the recommendations to potentially wean and extubate, father came in and wanted comfort care measures only. We'll proceed as per family's wishes and supposedly the patient is on wishes, apparently the patient was DO NOT RESUSCITATE to begin with. We'll proceed with comfort care measures. Critical care time is over 30min Time with Patient: Greater than 30
[2022-02-12 12:07] LABS: Glucose,Whole Blood 146 mg/dL (70-110)
[2022-02-12 13:24] VITALS: BMI 25.0
[2022-02-12] MEDS: INSULIN REGULAR 100 UNIT in SODIUM CHLORIDE 0.9% 100 ML IV SCH (18:31)
[2022-02-12 18:32] VITALS: PULSE 88
[2022-02-12] MEDS ORDERED: LORazepam 1 MG/0.5 ML VIAL IV PRN ×2 (19:27)
[2022-02-12 20:37] VITALS: BP 76/41; RESP 5; TEMP 97.8
--- NOTE | 2022-02-13 16:56 | P.DS ---
Providers Date of admission: 02/11/22 08:48 Attending physician: Cristi Mary Consults: 02/11/22 08:47 Consult Physician Stat Consulting Provider: Oziel Dubon Consult Reason/Comments: critical care Do you want consulting provider notified?: Yes Consult Physician Urgent Consulting Provider: Zach Silevrman Consult Reason/Comments: crf, hyperkalemia Do you want consulting provider notified?: Yes 02/11/22 09:18 Consult Physician Urgent Consulting Provider: Manpreet Ricks Consult Reason/Comments: Cardiac evaluation Do you want consulting provider notified?: Yes 02/11/22 11:32 Consult to Palliative Care Routine Consulting Provider: Alicia Judge Consult Reason/Comments: Goal of Care Do you want consulting provider notified?: Yes Primary care physician: Cristi Mary - Discharge Diagnosis(es) (1) Altered mental status Status: Acute (2) Diabetic ketoacidosis Status: Acute (3) Dialysis patient, noncompliant Status: Acute (4) Hyperkalemia Status: Acute (5) Chronic kidney disease Status: Acute (6) Chronic renal failure Status: Acute (7) History of melanoma Status: Acute Hospital Course: This is a summary on a 51-year-old white male with history of diabetes who was found at his home. He did not make his current dialysis and was found unconscious. The patient had elevated blood sugar and was in diabetic ketoacidosis. Due to his overall health he was placed on ventilatory status and stabilized. However his prognosis was becoming more poor due to his multiple hospitalizations. After discussion the father made him comfort care because he felt that his son would not want long-term mechanical ventilation. The patient Was made comfortable and placed on appropriate measures. He later that evening. Patient Condition at Discharge: Critical Plan - Discharge Summary New Discharge Prescriptions: No Action Insulin Aspart [NovoLOG Flexpen] See Protocol SQ AC-TID lisinopriL [Zestril] 40 mg PO HS Insulin Degludec [Tresiba Flextouch U-200 Pen] 70 units SQ HS Hyoscyamine Sulfate [Levbid] 0.375 mg PO Q12HR PRN PRN Reason: CRAMPING Sertraline HCl [Zoloft] 25 mg PO DAILY Lansoprazole 30 mg PO DAILY Ondansetron [Zofran] 4 mg PO Q6H PRN PRN Reason: Nausea Prochlorperazine [Compazine] 10 mg PO TID hydrALAZINE HCL [Apresoline] 100 mg PO TID carvediloL [Coreg] 6.25 mg PO BID Ergocalciferol [Vitamin D2 (1250 Mcg = 00047 Iu)] 1,250 mcg PO Q7D Discharge Medication List Insulin Aspart [NovoLOG Flexpen] See Protocol SQ AC-TID 07/09/19 [History] Insulin Degludec [Tresiba Flextouch U-200 Pen] 70 units SQ HS 03/18/21 [History] lisinopriL [Zestril] 40 mg PO HS 03/18/21 [History] Lansoprazole 30 mg PO DAILY 04/07/21 [History] Ondansetron [Zofran] 4 mg PO Q6H PRN 11/28/21 [History] Hyoscyamine Sulfate [Levbid] 0.375 mg PO Q12HR PRN 01/26/22 [History] Prochlorperazine [Compazine] 10 mg PO TID 01/26/22 [History] hydrALAZINE HCL [Apresoline] 100 mg PO TID 01/26/22 [History] Ergocalciferol [Vitamin D2 (1250 Mcg = 00482 Iu)] 1,250 mcg PO Q7D 02/01/22 [History] Sertraline HCl [Zoloft] 25 mg PO DAILY 02/01/22 [History] carvediloL [Coreg] 6.25 mg PO BID 02/01/22 [History] Follow up Appointment(s)/Referral(s): Cristi Mary MD [Primary Care Provider] - 1-2 days Discharge Disposition: - Preliminary Cause of Preliminary Cause of : Diabetic ketoacidosis with end-stage renal disease
== END 2022-02-13 03:57 | disposition expired | DRG 637 ==
LOC: EC 07:20 → 2SICU 08:48
PROVIDERS: ADMIT Family Medicine; ATTEND Family Medicine
PROC: 0BH18EZ Insertion of Endotracheal Airway into Trachea, Via Natural or Artificial Opening Endoscopic (ICD-10-PCS; principal; 2022-02-11)
PROC: 5A1945Z Respiratory Ventilation, 24-96 Consecutive Hours (ICD-10-PCS; principal; 2022-02-11)
PROC: 0D9670Z Drainage of Stomach with Drainage Device, Via Natural or Artificial Opening (ICD-10-PCS; 2022-02-11)
PROC: 02HV33Z Insertion of Infusion Device into Superior Vena Cava, Percutaneous Approach (ICD-10-PCS; 2022-02-11)
PROC: 3E043XZ Introduction of Vasopressor into Central Vein, Percutaneous Approach (ICD-10-PCS; 2022-02-11)
DX: E11.10 Type 2 diabetes mellitus with ketoacidosis without coma (principal); G93.41 Metabolic encephalopathy; N18.6 End stage renal disease; J96.01 Acute respiratory failure with hypoxia; E87.1 Hypo-osmolality and hyponatremia; I12.0 Hypertensive chronic kidney disease with stage 5 chronic kidney disease or end stage renal disease; N13.8 Other obstructive and reflux uropathy; N17.9 Acute kidney failure, unspecified; E11.22 Type 2 diabetes mellitus with diabetic chronic kidney disease; E11.40 Type 2 diabetes mellitus with diabetic neuropathy, unspecified; R77.8 Other specified abnormalities of plasma proteins; E86.0 Dehydration; E87.5 Hyperkalemia; F17.210 Nicotine dependence, cigarettes, uncomplicated; Z91.15 Patient's noncompliance with renal dialysis; E87.70 Fluid overload, unspecified; F32.A Depression, unspecified; G47.00 Insomnia, unspecified; Z51.5 Encounter for palliative care; Z66 Do not resuscitate; Z99.2 Dependence on renal dialysis; R33.9 Retention of urine, unspecified; I45.10 Unspecified right bundle-branch block; K59.00 Constipation, unspecified; N40.1 Benign prostatic hyperplasia with lower urinary tract symptoms; R13.10 Dysphagia, unspecified; R32 Unspecified urinary incontinence; Z79.4 Long term (current) use of insulin; Z79.899 Other long term (current) drug therapy; Z83.3 Family history of diabetes mellitus; Z85.820 Personal history of malignant melanoma of skin; Z90.79 Acquired absence of other genital organ(s); Z87.440 Personal history of urinary (tract) infections; Z71.3 Dietary counseling and surveillance
CPT/HCPCS: 31500; 36415; 36556; 36600; 70450; 71045; 80048; 80051; 80053; 80306; 80320; 81001; 82009; 82565; 82805; 82947; 83735; 84100; 84484; 84520; 85025; 85027; 85610; 85730; 90935; 93005; 93306; 94002; 94003; 94640; 96365; 96366; 96368; 96375; 96376; 99291